=== PATIENT | female | born 1930 | race Caucasian/White ===

== ENCOUNTER 2017-02-22 11:45 | Day surgery (SDC) | payer OTHER, MEDICARE ==
[2017-02-21 16:28] VITALS: BMI 22.6
[2017-02-22 12:29] VITALS: TEMP 98.1
[2017-02-22] MEDS ORDERED: MIDAZOLAM HCL 2 MG/2 ML SINGLE DOSE VIAL ONE (12:47)
[2017-02-22] MEDS ORDERED: PROPOFOL 20 ML ONE (14:09)
[2017-02-22] MEDS ORDERED: ceFAZolin SODIUM 1 GM VIAL ONE (14:16)
[2017-02-22] MEDS ORDERED: SODIUM CHLORIDE 0.9% P/F 10 ML VIAL IJ ONE (14:16)
[2017-02-22] MEDS ORDERED: ceFAZolin SODIUM 1 GM VIAL IVPB ONE (14:20)
[2017-02-22] MEDS ORDERED: BUPIVACAINE HCL/PF 0.5% (5MG/ML) 10 ML VIAL IJ ONE (14:30)
[2017-02-22] MEDS ORDERED: LIDOCAINE 1%/EPI 1:100000 (50 ML MULTI DOSE VIAL) PNB ONE (14:30)
[2017-02-22] MEDS ORDERED: MICROFIBRILLAR COLLAGEN 1 GM EACH ONE (15:09)
[2017-02-22] MEDS ORDERED: MICROFIBRILLAR COLLAGEN 1 GM EACH TP ONE (15:10)
[2017-02-22] MEDS ORDERED: ONDANSETRON 4 MG/2 ML VIAL IVPUSH PRN (15:26)
[2017-02-22] MEDS ORDERED: oxyCODONE HCL 5 MG TABLET PO PRN (15:26)
[2017-02-22] MEDS ORDERED: ACETAMINOPHEN 325 MG TABLET (FP) PO PRN (15:27)
[2017-02-22] MEDS ORDERED: LACTATED RINGERS SOLUTION 1,000 ML IV SCH ×2 (15:30)
[2017-02-22 18:28] VITALS: BP 147/66; PULSE 54
--- NOTE | 2017-02-23 06:03 | OP ---
DATE OF OPERATION: 02/22/2017 SURGICAL ATTENDING: Gem Adames MD PREOPERATIVE DIAGNOSIS: Right parotid mass. POSTOPERATIVE DIAGNOSIS: Right parotid mass. ANESTHESIA: Local with sedation. PROCEDURE: Right parotid mass biopsy. DESCRIPTION OF PROCEDURE: The patient was taken into the operating room and placed in a supine position and given IV sedation. Neck ultrasound was performed showing a large mass in the right parotid gland. No other significantly prominent lymph nodes were identified for biopsy. A vertical incision was made in the infra-auricular region posterior to the right parotid mass. This was carried down through subcutaneous tissues and platysma. The parotid gland was identified, and incision was made in the parotid gland. What appeared to be a branch of the facial nerve was identified and preserved. The mass was identified deep to the parotid, and a wedge biopsy was taken. This was sent to Pathology for frozen section and shown to have a lympho infiltrative process. Additional tissue was taken for further pathological analysis. Hemostasis was achieved with electrolytes, pressure, and Avitene. The wound was then closed with 2 layers of Vicryl and nylon sutures. Sterile dressings were placed. The patient was then awakened and taken to recovery in stable condition. Dr. Adames, the attending surgeon, was present throughout the entire procedure. GEM ADAMES M.D. [id number]
--- NOTE | 2017-02-28 17:02 | PATH ---
Surgical Pathology Report Patient Name: LINH DOVE [place]. Rec. #: [id number] /Age/Gender: 1930 (Age: 86) / F Account: [id number] Location: [facility] SURGICAL Taken: 02/22/2017 Received: 02/22/2017 Reported: 02/28/2017 Physicians: Vamshi Madrid M.D. Specimen(s) Received A: PAROTID MASS-FROZEN B: RIGHT PAROTID MASS BIOPSY Clinical History Right parotid mass Intraoperative Consult Diagnosis Parotid mass: Dense lymphoid infiltrate present (1 FS, 1 TP). Dr. Michele on 02/22/17 at 3:05 PM. Final Diagnosis A,B. 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 Comment: The biopsies show salivary gland tissue with areas of dense lymphoid infiltrate with mild pleomorphism forming focal lymphoepithelial-type lesions. The lymphoid infiltrate is comprised of predominantly of small size lymphocytes with occasional large forms also seen. Focal areas reminiscent of sialadenitis are also seen. Immunohistochemical stains performed and interpreted [facility] show the following highlight epithelial cells in lymphoepithelial lesions; lymphocytes are positive for CD45 with CD20 highlights B-cells, CD3 highlights T-cells. Additional immunohistochemical stains performed and interpreted at [place], [place] ([id number]) show the following: PAX5 highlights B-cells with a subset of B-cells positive for BCL6; BCL2 appears negative in B-cells and positive in T-cells; CD21 highlights follicular dendritic cells; BCL1 is negative. Flow Cytometry performed and interpreted on the concurrent specimen at [place], [place] ([id number]) shows a paucicellular specimen with involvement by B-cell lymphoma with clonal CD20+ B-cells expressing [place] light chain, negative for CD5 and CD10, comprising 20% of lymphocytes. Based on the results of Flow Cytometry the differential diagnosis includes Marginal Zone Lymphoma (favored), Lymphoplasmacytic lymphoma or other type of CD5- CD10- lymphoma. The biopsy specimen was seen consultation with hematopathology service at [place], [place] ([id number], Dr. Chakraborty). The it architecture consultant's opinion was as follows "Focal atypical B-cell infiltrate in salivary gland". 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 The case was preliminary discussed with Dr. Madrid by Dr. Condon on 02/26/17. Electronically Signed Conrad Michele M.D. Gross Description A. Received fresh labeled "right parotid mass frozen" are 2 pink-salvador soft tissue fragments measuring 0.2 and 0.4 cm in greatest dimension. The specimen is entirely submitted for touch prep and frozen section. One of the portions is placed into RPMI solution and sent for flow cytometry. The remaining portion is entirely submitted in one cassette. B. Received fresh labeled "right parotid mass" are 2 pink-salvador soft tissue fragments measuring 0.3 and 0.5 cm in greatest dimension. One of the portions is placed and RPMI solution and sent for flow cytometry. The remaining portion is entirely submitted in one cassette. 02/22/[address] [facility]02/22/2017
== END 2017-02-22 18:28 | disposition home or self-care (01) ==
LOC: JASU-SURG 11:45
PROVIDERS: ATTEND Surgery
PROC: 0CBJ0ZX Excision of Minor Salivary Gland, Open Approach, Diagnostic (ICD-10-PCS; principal; 2017-02-22 13:00)
DX: D37.030 Neoplasm of uncertain behavior of the parotid salivary glands (principal)
CPT/HCPCS: 88305-TC; 88331-TC; 88333; 88341-TC; 88342-TC; 94760

== ENCOUNTER 2017-05-16 17:45 | Inpatient (IN) | payer OTHER, MEDICARE ==
--- NOTE | 2017-05-16 18:09 | PDOC ---
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 Today the patient was walking up the stone steps to her house when she misstepped and fell backwards. The patient hit the back of her head on the steps but did not lose consciousness. She is complaining of headache and lower back pain. The patient denies any blurry vision, LOC, dizziness, nausea, vomiting, or weakness. PCP: Abebe Noriega MD Oncologist: Michael Kline MD Senior Assistant Manager: Robert Loaiza MD Allergies: propoxyphene napsylate, aspirin Social History: No alcohol, tobacco, or drug use reported Past Surgical History: Appendectomy, mitral valve replacement <January Fagan - Last Filed: 05/16/17 20:27> <Karl Corrales - Last Filed: 05/16/17 20:45> - General Chief Complaint: Injury Stated Complaint: INJURY Past History <January Fagan - Last Filed: 05/16/17 20:27> - Past Medical History Anemia: Yes (HIGH PLATELETS,freq transfusions) Asthma: No Cancer: Yes (lymphomia) Cardiac Disorders: Yes (AFIB, mvp) CVA: No COPD: No CHF: No Dementia: No Diabetes: No GI Disorders: Yes (esophageal reflux, ulcer) Disorders: No HTN: Yes Hypercholesterolemia: No Liver Disease: No Seizures: No Thyroid Disease: No (Al's) - Surgical History Abdominal Surgery: Yes (BOTH OVARIES) Appendectomy: Yes Cardiac Surgery: Yes (Mitral Valve) Cholecystectomy: No Lung Surgery: No Neurologic Surgery: No Orthopedic Surgery: No - Immunization History Td Vaccination: Yes Immunization Up to Date: Yes - Psycho/Social/Smoking Cessation Hx Anxiety: No Suicidal Ideation: No Smoking Status: No Smoking History: Former smoker Years of Tobacco Use: 0 Have you smoked in the past 12 months: No Number of Cigarettes Smoked Daily: 2 If you are a former smoker, when did you quit?: 60 years ago Cigars Per Day: 0 Information on smoking cessation initiated: No 'Breaking Loose' booklet given: 03/28/12 Hx Alcohol Use: No Drug/Substance Use Hx: No Substance Use Type: None Hx Substance Use Treatment: No <Karl Corrales - Last Filed: 05/16/17 20:45> - Past Medical History Allergies/Adverse Reactions: Allergies Allergy/AdvReac Type Severity Reaction Status Date / Time propoxyphene napsylate Allergy Severe Swelling Verified 05/16/17 17:58 [From Darvocet-N 100] aspirin Allergy Difficulty Verified 05/16/17 17:58 Breathing Home Medications: Ambulatory Orders Amlodipine Besylate [Norvasc -] 10 mg PO DAILY #0 tablet 05/13/13 Clonazepam [Klonopin] 0.25 mg PO TID PRN 04/21/14 Hydroxyurea [Hydrea 500Mg Capsule -] 500 mg PO DAILY 04/21/14 Ranitidine [Zantac -] 150 mg PO DAILY 06/10/15 Sotalol HCl [Sotalol] 120 mg PO BID 06/10/15 Warfarin Na [Coumadin -] 4 mg PO DAILY 06/10/15 Cholecalciferol (Vitamin D3) [Vitamin D3] 2,000 unit PO DAILY 03/22/16 Epoetin Chris [Procrit] 0 unit IJ ASDIR 09/11/16 Cranberry 400 mg PO DAILY 02/21/17 Review of Systems - Review of Systems Comments:: 05/16/17 19:28 GENERAL/CONSTITUTIONAL: No fever or chills. No weakness. HEAD, EYES, EARS, NOSE AND THROAT: No change in vision. No ear pain or discharge. No sore throat. CARDIOVASCULAR: No chest pain or shortness of breath. RESPIRATORY: No cough, wheezing, or hemoptysis. GASTROINTESTINAL: No nausea, vomiting, diarrhea or constipation. GENITOURINARY: No dysuria, frequency, or change in urination. MUSCULOSKELETAL: Lower back pain. No joint or muscle swelling or pain. No neck pain. ENDOCRINE: No increased thirst. No abnormal weight change. SKIN: No rash NEUROLOGIC: Headache. No vertigo, loss of consciousness, or change in strength/ sensation. <January Fagan - Last Filed: 05/16/17 20:27> *Physical Exam - Vital Signs Last Vital Signs Temp Pulse Resp BP Pulse Ox 98.6 F 59 L 20 163/57 96 05/16/17 17:58 05/16/17 17:58 05/16/17 17:58 05/16/17 17:58 05/16/17 17:58 - Physical Exam Comments: 05/16/17 19:28 GENERAL: Awake, alert, and fully oriented, in no acute distress HEAD: Midline occipital hematoma EYES: PERRLA, EOMI, sclera anicteric, conjunctiva clear ENT: Auricles normal inspection, hearing grossly normal, nares patent, oropharynx clear without exudates. Moist mucosa NECK: Normal ROM, supple, no lymphadenopathy, JVD, or masses LUNGS: Breath sounds equal, clear to auscultation bilaterally. No wheezes, and no crackles HEART: Regular rate and rhythm, normal S1 and S2, no murmurs, rubs or gallops ABDOMEN: Soft, nontender, normoactive bowel sounds. No guarding, no rebound. No masses EXTREMITIES: Normal range of motion, no edema. No clubbing or cyanosis. No cords, erythema, or tenderness BACK: Upper lumbar tenderness bilaterally. No bony step off to the spinal process. Paraspinal muscle tenderness. No paraspinal bony tenderness. NEUROLOGICAL: Cranial nerves II through XII grossly intact. Normal speech, normal gait SKIN: Warm, Dry, normal turgor, no rashes or lesions noted. HEMATOLOGIC/LYMPHATIC: No anemia, easy bleeding, or history of blood clots. ALLERGIC/IMMUNOLOGIC: No hives or skin allergy. <January Fagan - Last Filed: 05/16/17 20:27> - Vital Signs Last Vital Signs Temp Pulse Resp BP Pulse Ox 98.6 F 59 L 20 163/57 96 05/16/17 17:58 05/16/17 17:58 05/16/17 17:58 05/16/17 17:58 05/16/17 17:58 <Karl Corrales - Last Filed: 05/16/17 20:45> Heart Score/ECG Review #1 05/16/17 19:30 Sinus bradycardia at 58 bpm Left axis deviation Possible Anterior infarct, age undetermined Abnormal ECG <January Fagan - Last Filed: 05/16/17 20:27> ED Treatment Course - LABORATORY CBC & Chemistry Diagram: 05/16/17 18:22 05/16/17 18:22 - RADIOLOGY Radiograph Interpretation: 05/16/17 20:[address] Impression: No acute intracranial pathology is noted. As also described on a cranial MRI study of 04/23/2017 there is partial imaging of a right parotid mass lesion - ? on the basis of known lymphoma. Reported By: Nestor Vee MD Lumbar CT Impression: A minimal to mild subtle acute T12 vertebral body compression fracture is seen with minimal bony retropulsion. Diffuse osteoporosis. There is no definite CT evidence of osseous neoplastic disease. Multilevel degenerative disc and facet joint changes as discussed. There appears to be a small amount of free fluid within the partially imaged hepatorenal fossa. If clinically indicated confirmation and further evaluation utilizing sonography or CT may be performed. Reported By: Nestor Vee MD - Medications Given in the ED: ED Medications Discontinued Medications Generic Name Dose Route Start Last Admin Trade Name Freq PRN Reason Stop Dose Admin Morphine Sulfate 4 mg 05/16/17 18:22 05/16/17 18:34 Morphine Injection - IVPUSH 05/16/17 18:23 4 mg ONCE ONE Administration Ondansetron HCl 4 mg 05/16/17 18:22 05/16/17 18:25 Zofran Injection IVPUSH 05/16/17 18:23 4 mg ONCE ONE Administration <January Fagan - Last Filed: 05/16/17 20:27> - LABORATORY CBC & Chemistry Diagram: 05/16/17 18:22 05/16/17 18:22 <Karl Corrales - Last Filed: 05/16/17 20:45> *DC/Admit/Observation/Transfer - Attestations Scribe Attestion: 05/16/17 19:30 Documentation prepared by January Fagan, acting as medical transcriber for Karl Corrales MD. <January Fagan - Last Filed: 05/16/17 20:27> - Discharge Dispostion Admit: Yes - Transfer to Acute Care Facility Transfer comment: 05/16/17 18:08 I, Dr. Karl Corrales, attest that this document has been prepared under my direction and personally reviewed by me in its entirety. I further attest, that it accurately reflects all work, treatment, procedures and medical decision -making performed by me. <Karl Corrales - Last Filed: 05/16/17 20:45> Diagnosis at time of Disposition: History of warfarin therapy Compression fracture of lumbar vertebra Qualifiers: Encounter type: initial encounter Fracture type: closed Qualified Code(s): S32.000A - Wedge compression fracture of unspecified lumbar vertebra, initial encounter for closed fracture Acute head injury without loss of consciousness Qualifiers: Encounter type: initial encounter Qualified Code(s): S09.90XA - Unspecified injury of head, initial encounter - Discharge Dispostion Condition at time of disposition: Improved - Referrals Referrals: Abebe Noriega MD [Primary Care Provider] -
[2017-05-16] MEDS ORDERED: morphine CARPU-JECT 4 MG/1 ML DISP.SYRIN IVPUSH ONE (18:22)
[2017-05-16] MEDS ORDERED: ONDANSETRON 4 MG/2 ML VIAL IVPUSH ONE ×2 (18:22→20:38)
[2017-05-16] MEDS ORDERED: morphine CARPU-JECT 4 MG/1 ML DISP.SYRIN ONE (18:26)
[2017-05-16] MEDS ORDERED: ONDANSETRON 4 MG/2 ML VIAL ONE ×2 (18:26→20:41)
[2017-05-16 19:26] LABS: BASOPHIL 1.7 % (0-2.0); EOSINOPHIL 4.4 % (0-4.5); MCH 24.3 pg (25.7-33.7); MCHC 31.2 g/dl (32.0-36.0); MEAN PLT VOLUME 9.1 fl (7.5-11.1); NEUTROPHILS 80.4 % (42.8-82.8); PLATELET COUNT 380 K/MM3 (134-434); RDW 19.1 % (11.6-15.6); WHITE BLOOD COUNT 10.1 K/mm3 (4.0-10.0)
[2017-05-16 19:47] LABS: INR 2.31 (0.82-1.09); PROTHROMBIN TIME (PATIENT) 25.8 SEC (9.98-11.88)
[2017-05-16 19:49] LABS: ACTIVATED PTT 49.8 SECONDS (26.9-34.4)
[2017-05-16] MEDS ORDERED: LORAZEPAM CARPU-JECT 2 MG/ML DISP.SYRIN IVPUSH ONE (20:38)
[2017-05-16] MEDS ORDERED: morphine CARPU-JECT 2 MG/1 ML DISP.SYRIN IVPUSH ONE (20:38)
[2017-05-16] MEDS ORDERED: morphine CARPU-JECT 2 MG/1 ML DISP.SYRIN ONE (20:40)
[2017-05-16] MEDS ORDERED: LORazepam 2 MG/ML SDV VIAL ONE (20:41)
[2017-05-16 20:49] LABS: ALBUMIN 4.1 g/dl (3.4-5.0); ANION GAP 10 (8-16); BILIRUBIN,TOTAL 1.2 mg/dL (0.2-1.0); CALCIUM 8.8 mg/dL (8.5-10.1); CO2 26 mmol/L (21-32); CREATININE 0.9 mg/dL (0.55-1.02); GLUCOSE,RANDOM 99 mg/dL (74-106); SGOT/AST 56 U/L (15-37); SGPT/ALT 43 U/L (12-78); TOT PROT 6.7 g/dl (6.4-8.2)
[2017-05-16 20:51] LABS: ALK PHOS 122 U/L (45-117); TROPONIN I 0.02 ng/ml (0.00-0.05)
--- NOTE | 2017-05-16 21:47 | PN ---
Teaching Attending Note Name of Resident: Cici Robertson ATTENDING PHYSICIAN STATEMENT I saw and evaluated the patient. I reviewed the resident's note and discussed the case with the resident. I agree with the resident's findings and plan as documented. SUBJECTIVE: 86 y/o female s/p mechanical fall. OBJECTIVE: ON exam A& times 3 in mild distress, with neck hyperextended and swollen, pre and post suricular swelling. Lungs CTA, CVS RRR, Abd soft BS+, Ext nl rom, 5+ strength ecchymosis on right elbow. Skin with poor turgor and petechia. Neuro no focal deficits, sensation intact. CBCD WBC 10.1 K/mm3 (4.0-10.0) H D 05/16/17 18:22 RBC 3.87 M/mm3 (3.60-5.2) 05/16/17 18:22 Hgb 9.4 GM/dL (10.7-15.3) L 05/16/17 18:22 Hct 30.2 % (32.4-45.2) L 05/16/17 18:22 MCV 78.0 fl (80-96) L 05/16/17 18:22 MCHC 31.2 g/dl (32.0-36.0) L 05/16/17 18:22 RDW 19.1 % (11.6-15.6) H 05/16/17 18:22 Plt Count 380 K/MM3 (134-434) D 05/16/17 18:22 MPV 9.1 fl (7.5-11.1) D 05/16/17 18:22 CMP Sodium 134 mmol/L (136-145) L 05/16/17 20:18 Potassium 4.2 mmol/L (3.5-5.1) 05/16/17 20:18 Chloride 98 mmol/L (98-107) 05/16/17 20:18 Carbon Dioxide 26 mmol/L (21-32) 05/16/17 20:18 Anion Gap 10 (8-16) 05/16/17 20:18 BUN 24 mg/dL (7-18) H 05/16/17 20:18 Creatinine 0.9 mg/dL (0.55-1.02) 05/16/17 20:18 Creat Clearance w eGFR 59.51 (>60) 05/16/17 20:18 Random Glucose 99 mg/dL (74-106) 05/16/17 20:18 Calcium 8.8 mg/dL (8.5-10.1) 05/16/17 20:18 Total Bilirubin 1.2 mg/dL (0.2-1.0) H 05/16/17 20:18 AST 56 U/L (15-37) H D 05/16/17 20:18 ALT 43 U/L (12-78) 05/16/17 20:18 Alkaline Phosphatase 122 U/L (45-117) H 05/16/17 20:18 Total Protein 6.7 g/dl (6.4-8.2) 05/16/17 20:18 Albumin 4.1 g/dl (3.4-5.0) 05/16/17 20:18 CARDIAC ENZYMES Creatine Kinase 40 IU/L (26-192) 05/16/17 20:18 Troponin I 0.02 ng/ml (0.00-0.05) 05/16/17 20:18 ASSESSMENT AND PLAN: s/p mechanical fall with T12 compression fracture and head trauma with patient on coumadin (INR 2.31) Hold coumadin and repeat Head CT, Neuro checks q2h and PT consult and Neurosurgery consult . Percocet PO Q6H PRN and Morphine 2mg IVPUSH Q4H PRN for severe pain
--- NOTE | 2017-05-16 22:15 | HP ---
HISTORY OF PRESENT ILLNESS: Patient is an 86 year old female with a PMHx of HTN, A.fib (on Coumadin), Tucker thyroiditis, GERD, anxiety, Myeloproliferative disorder, Lymphoma on radiotherapy (last treatment today (05/16/17) who was BIBEMS s/p mechanical fall with complaints of severe back pain. Patient reports she fell backwards five steps down landing on her back and hitting the back of her head. Patient otherwise denies headache, acute vision changes, dizziness, loss of consciousness, urinary or fecal incontinence, weakness, numbness. PHYSICAL EXAMINATION GENERAL: Awake, alert, and fully oriented and in mild painful distress HEAD: Tenderness upon palpation of the posterior aspect of the head EYES: (-) [place] eyes, Pupils equal, round and reactive to light, extraocular movements intact, sclera anicteric, conjunctiva clear. EARS, NOSE, THROAT: Bruising of the right aspect of the tongue with no laceration. Moist mucous membranes. (-) Wolfe signs, (-) hemotympanum NECK: Limited range of motion upon flexion of the neck. Lymphadeopathy in the pre and post auricular with tenderness upon palpation LUNGS: Breath sounds equal, clear to auscultation bilaterally. No wheezes, and no crackles. No accessory muscle use. HEART: Irregularly irregular rhythm, normal S1 and S2 without murmur, rub or gallop. ABDOMEN: Soft, nontender, not distended, normoactive bowel sounds, no guarding, no rebound, no masses, (-) bruising UPPER EXTREMITIES: Echymosis of the of the right elbow. No peripheral edema. LOWER EXTREMITIES: Bilateral chronic venous stasis with pedal edema with 2+ pulses, warm, well-perfused. No calf tenderness. NEUROLOGICAL: Normal Speech, motor strength 5/5, sensory intact, CN II-XII intact except for VIII. SKIN: Chronic venous stasis bilaterally. Telangiectasia's throughout upper and lower body. Abnormal Lab Results 05/16/17 05/16/17 05/16/17 18:22 18:22 20:18 WBC 10.1 H D Hgb 9.4 L Hct 30.2 L MCV 78.0 L MCH 24.3 L MCHC 31.2 L RDW 19.1 H Lymphocytes % 7.9 L D INR 2.31 H D PTT (Actin FS) 49.8 H D Sodium 134 L BUN 24 H Total Bilirubin 1.2 H AST 56 H D Alkaline Phosphatase 122 H IMAGES: HEAD CT (05/16/17): No Acute pathology. No hemorrhage or hematoma identified. ASSESSMENT/PLAN: Patient is an 86 year old female with a PMHx of HTN, A.fib (on Coumadin), Tucker thyroiditis, GERD, anxiety, Myeloproliferative disorder, Lymphoma on radiotherapy who was brought in s/p mechanical fall. Patient was found to have an acute T12 vertebral body compression fracture. Patient admitted for further monitoring and management. Head Trauma and T12 Compression Fracture s/p Mechanical Fall -Patient on Coumadin -First CT negative. Will repeat in 6 hours -Coumadin on hold -Neuro Checks Q2H and fall risk precautions -Morphine PRN percocet Q6H -Neurology consult placed -Physical therapy Case discussed with medical team and attending. Full H&P to follow Visit type - Emergency Visit Emergency Visit: Yes ED Registration Date: 05/16/17 Care time: The patient presented to the Emergency Department on the above date and was hospitalized for further evaluation of their emergent condition. - New Patient This patient is new to me today: Yes Date on this admission: 05/17/17 - Critical Care Critical Care patient: No
[2017-05-16] MEDS ORDERED: OXYCODONE/APAP 5/325MG COMBO TABLET PO PRN (22:22)
[2017-05-16] MEDS ORDERED: oxyCODONE HCL 5 MG TABLET PO PRN (22:35)
--- NOTE | 2017-05-16 23:12 | HP ---
CHIEF COMPLAINT: Head trauma PCP: Dr. Abebe Cosme Alemite Operator: Dr. Robert Loaiza Oncologist: Dr. Kline Urologist: Dr. Mervin Bella Rad Onc: Dr. Gonzales Bernabe HISTORY OF PRESENT ILLNESS: 86yo woman with PMH of Afib (on coumadin), HTN, Al's thyroiditis, GERD, anxiety, myeloproliferative disorder, and Lymphoma on RT (treatment #7 today), who was BIBEMS after mechanical fall hitting her head earlier today. The patient went to radiation therapy early today, and on return home while she was entering her house the front door rapidly swung open. She subsequently fell backwards down 5 steps onto concrete, landing on her back and posterior head. She was on the ground for 5-10minutes before she was able to phone for help. She denies LOC, headache, vision changes. No confusion, dizziness, paresthesia or focal weakness. Patient denies SOB, diaphoresis, chest pain or palpitations before, during, and after the fall. ER course was notable for: (1) Vital signs: T 98.6F, HR 59, BP 163/57, RR 20, SpO2 96% on 2L NC (2) Head CT was negative for hemorrhage (3) Spinal XRAY showed T12 compression fracture (4) Pain control with PAST MEDICAL HISTORY: #Lymphoma #Afib on coumadin #Al's thyroiditis #GERD #anxiety #HTN #Essential thrombocytosis #myeloproliferative disorder formerly transfusion dependent #Allergic rhinitis PAST SURGICAL HISTORY: Appendectomy Mitral valve replacement Social History: Smoking: none Alcohol: none Drugs: none Family History: non-contributory Allergies: propoxyphene napsylate [From Darvocet-N 100] Allergy (Severe, Verified 05/16/17 17:58) Swelling aspirin Allergy (Verified 05/16/17 17:58) Difficulty Breathing HOME MEDICATIONS: Home Medications Medication Instructions Recorded Amlodipine Besylate [Norvasc -] 10 mg PO DAILY #0 tablet 05/13/13 Clonazepam [Klonopin] 0.25 mg PO TID PRN 04/21/14 Hydroxyurea [Hydrea 500Mg Capsule 500 mg PO DAILY 04/21/14 -] Ranitidine [Zantac -] 150 mg PO DAILY 06/10/15 Sotalol HCl [Sotalol] 120 mg PO BID 06/10/15 Warfarin Na [Coumadin -] 4 mg PO DAILY 06/10/15 Cholecalciferol (Vitamin D3) 2,000 unit PO DAILY 03/22/16 [Vitamin D3] Epoetin Chris [Procrit] 0 unit IJ ASDIR 09/11/16 Cranberry 400 mg PO DAILY 02/21/17 REVIEW OF SYSTEMS CONSTITUTIONAL: Absent: fever, chills, diaphoresis, generalized weakness, malaise, loss of appetite, weight change HEENT: Absent: rhinorrhea, nasal congestion, throat pain, throat swelling, difficulty swallowing, mouth swelling, ear pain, eye pain, visual changes CARDIOVASCULAR: Absent: chest pain, syncope, palpitations, irregular heart rate , lightheadedness, peripheral edema RESPIRATORY: Absent: cough, shortness of breath, dyspnea with exertion, orthopnea, wheezing, stridor, hemoptysis GASTROINTESTINAL: Absent: abdominal pain, abdominal distension, nausea, vomiting , diarrhea, constipation, melena, hematochezia GENITOURINARY: Absent: dysuria, frequency, urgency, hesitancy, hematuria, flank pain, genital pain MUSCULOSKELETAL: +neck and back pain SKIN: Absent: rash, itching, pallor HEMATOLOGIC/IMMUNOLOGIC: +cervical LAD ENDOCRINE: Absent: unexplained weight gain, unexplained weight loss, heat intolerance, cold intolerance NEUROLOGIC: Absent: headache, focal weakness or paresthesias, dizziness, unsteady gait, seizure, mental status changes, bladder or bowel incontinence PSYCHIATRIC: Absent: anxiety, depression, suicidal or homicidal ideation, hallucinations. PHYSICAL EXAMINATION Vital Signs - 24 hr 05/16/17 22:45 Temperature 100 F H Pulse Rate [ 61 Apical] Respiratory 14 Rate Blood Pressure 133/50 [Left Arm] O2 Sat by Pulse 99 Oximetry (%) GENERAL: Awake, alert, and fully oriented, in no acute distress. HEAD: Normal with no signs of trauma EYES: Pupils equal, round and reactive to light, extraocular movements intact, sclera anicteric, conjunctiva clear. EARS, NOSE, THROAT: mucous membranes, hematoma on right side of tongue NECK: mildly erythematous and swollen neck, pre-and post-auricular LNs tender to palpation, limited neck flexion 2/2 back tenderness LUNGS: Breath sounds equal, clear to auscultation bilaterally. No wheezes, and no crackles. No accessory muscle use. HEART: Regular rate and rhythm, normal S1 and S2 without murmur, rub or gallop. ABDOMEN: Soft, nontender, not distended MUSCULOSKELETAL: lower thorax tenderness bilaterally UPPER EXTREMITIES: hematoma on R elbow, 2+ pulses, warm, well-perfused. LOWER EXTREMITIES: 2+ pulses, warm, well-perfused. 1+ pitted edema. NEUROLOGICAL: Cranial nerves II-XII intact. 5/5 UE and LE strength. Normal speech. Gait not assessed. PSYCHIATRIC: Cooperative. Appropriate mood and affect. SKIN: b/l stasis dermatitis, telangiectasia on UE and LE Labs: Laboratory Last Values WBC 10.1 K/mm3 (4.0-10.0) H D 05/16/17 18:22 RBC 3.87 M/mm3 (3.60-5.2) 05/16/17 18:22 Hgb 9.4 GM/dL (10.7-15.3) L 05/16/17 18:22 Hct 30.2 % (32.4-45.2) L 05/16/17 18:22 MCV 78.0 fl (80-96) L 05/16/17 18:22 MCH 24.3 pg (25.7-33.7) L 05/16/17 18:22 MCHC 31.2 g/dl (32.0-36.0) L 05/16/17 18:22 RDW 19.1 % (11.6-15.6) H 05/16/17 18:22 Plt Count 380 K/MM3 (134-434) D 05/16/17 18:22 MPV 9.1 fl (7.5-11.1) D 05/16/17 18:22 Neutrophils % 80.4 % (42.8-82.8) D 05/16/17 18:22 Lymphocytes % 7.9 % (8-40) L D 05/16/17 18:22 Monocytes % 5.6 % (3.8-10.2) 05/16/17 18:22 Eosinophils % 4.4 % (0-4.5) 05/16/17 18:22 Basophils % 1.7 % (0-2.0) D 05/16/17 18:22 INR 2.31 (0.82-1.09) H D 05/16/17 18:22 PTT (Actin FS) 49.8 SECONDS (26.9-34.4) H D 05/16/17 18:22 Sodium 134 mmol/L (136-145) L 05/16/17 20:18 Potassium 4.2 mmol/L (3.5-5.1) 05/16/17 20:18 Chloride 98 mmol/L (98-107) 05/16/17 20:18 Carbon Dioxide 26 mmol/L (21-32) 05/16/17 20:18 Anion Gap 10 (8-16) 05/16/17 20:18 BUN 24 mg/dL (7-18) H 05/16/17 20:18 Creatinine 0.9 mg/dL (0.55-1.02) 05/16/17 20:18 Creat Clearance w eGFR 59.51 (>60) 05/16/17 20:18 Random Glucose 99 mg/dL (74-106) 05/16/17 20:18 Calcium 8.8 mg/dL (8.5-10.1) 05/16/17 20:18 Total Bilirubin 1.2 mg/dL (0.2-1.0) H 05/16/17 20:18 AST 56 U/L (15-37) H D 05/16/17 20:18 ALT 43 U/L (12-78) 05/16/17 20:18 Alkaline Phosphatase 122 U/L (45-117) H 05/16/17 20:18 Creatine Kinase 40 IU/L (26-192) 05/16/17 20:18 Troponin I 0.02 ng/ml (0.00-0.05) 05/16/17 20:18 B-Natriuretic Peptide Cancelled 05/16/17 18:22 Total Protein 6.7 g/dl (6.4-8.2) 05/16/17 20:18 Albumin 4.1 g/dl (3.4-5.0) 05/16/17 20:18 Imaging: Heat CT: no acute intracranial pathology Lumbar Spine CT w/o contrast: A minimal to mild subtle acute T12 vertebral body compression fracture seen with minimal bony retropulsion, diffuse osteoporosis EKG (05/16/17 19:30): Sinus bradycardia at 58 bpm Left axis deviation Possible Anterior infarct, age undetermined Abnormal ECG ASSESSMENT/PLAN: 86yo woman with PMH of afib on coumadin, lymphoma on radiation therapy, myeloproliferative disorder, HTN, al's thyroiditis, GERD, and anxiety who was BIBEMS after mechanical fall on head and admitted for observation. #head trauma s/p mechanical fall -Patient on coumadin (INR 2.31) -Hold coumadin -Serial Head CTs to rule out hemorrhage -Neuro checks q2h -Physical therapy ordered #T12 compression fracture -Neurosurgery consult ordered (Dr. Liborio Lawton) -Oxycodone 10mg/Acetaminophen 650mg PO Q6H PRN for pain management -Morphine 1mg IVPUSH Q4H PRN for pain management #Afib -Hold coudamin #HTN -Continue home amlodipine -Continue home sotalol 120mg BID #Anxiety -Continue home clonazepam 0.25mg PO TID PRN #Myelodysplastic syndrome -Continue home hydroxyurea 500mg PO daily #Mouth sores/oral pain 2/2 radiation therapy -Magic mouth wash 15cc S&S daily -Gelclair oral gel packet (patient's own medication) #Allergic Rhinitis -Continue home Ranitidine 150mg PO daily #F/E/N -Hold IVF -Electrolytes wnl -Regular diet #DVT prophylaxis: moderate risk 2/2 cancer -b/l SCD's #Dispo -Admit for observation -DNR d/w team Cici Robertson MD Visit type - Emergency Visit Emergency Visit: Yes ED Registration Date: 05/16/17 Care time: The patient presented to the Emergency Department on the above date and was hospitalized for further evaluation of their emergent condition. - New Patient This patient is new to me today: Yes Date on this admission: 05/17/17 - Critical Care Critical Care patient: No
[2017-05-17] MEDS: morphine CARPU-JECT 2 MG/1 ML DISP.SYRIN IVPUSH PRN ×2 (00:32→08:56)
[2017-05-17] MEDS: MAG HYDROX/ALH/SMC/DPHA/LIDO 240 ML MOUTHWASH MM SCH ×4 (00:40→18:08)
[2017-05-17 00:49] VITALS: BMI 17.2
[2017-05-17] MEDS ORDERED: oxyCODONE HCL 5 MG TABLET PO PRN (07:41)
[2017-05-17 07:59] LABS: MCH 24.5 pg (25.7-33.7); MCHC 31.6 g/dl (32.0-36.0); MEAN CELL VOLUME 77.5 fl (80-96); MEAN PLT VOLUME 8.5 fl (7.5-11.1); PLATELET COUNT 224 K/MM3 (134-434); RDW 18.4 % (11.6-15.6); WHITE BLOOD COUNT 5.4 K/mm3 (4.0-10.0)
[2017-05-17 08:19] LABS: INR 2.79 (0.82-1.09); PROTHROMBIN TIME (PATIENT) 31.3 SEC (9.98-11.88)
[2017-05-17 08:32] LABS: ANION GAP 7 (8-16); CALCIUM 8.1 mg/dL (8.5-10.1); CO2 29 mmol/L (21-32); CREATININE 0.8 mg/dL (0.55-1.02); GLUCOSE,RANDOM 88 mg/dL (74-106)
--- NOTE | 2017-05-17 09:21 | EKG ---
Test Reason : Blood Pressure : / mmHG Vent. Rate : 059 BPM Atrial Rate : 059 BPM P-R Int : 202 ms QRS Dur : 090 ms QT Int : 458 ms P-R-T Axes : 079 -46 021 degrees QTc Int : 453 ms SINUS BRADYCARDIA LEFT ANTERIOR FASCICULAR BLOCK POSSIBLE ANTERIOR INFARCT , AGE UNDETERMINED ABNORMAL ECG WHEN COMPARED WITH ECG OF 11-SEP-2016 06:18, SINUS RHYTHM HAS REPLACED ATRIAL FIBRILLATION VENT. RATE HAS DECREASED BY 55 BPM NONSPECIFIC T WAVE ABNORMALITY NOW EVIDENT IN ANTERIOR LEADS Confirmed by МАРИЯ DAIGLE MD ([id number]) on 05/17/2017 9:21:09 AM Referred By: Confirmed By:МАРИЯ DAIGLE MD
[2017-05-17] MEDS ORDERED: PT OWN MED DRAWER 7, Y5N ONE (09:35)
[2017-05-17] MEDS: SOTALOL HCL 80 MG TABLET (FP) PO SCH ×2 (09:54→21:12)
[2017-05-17] MEDS: amLODIPine BESYLATE 10 MG TABLET (FP) PO SCH (09:54)
[2017-05-17] MEDS: RANITIDINE HCL 150 MG TABLET (FP) PO SCH ×2 (09:54→10:12)
[2017-05-17] MEDS: CHOLECALCIFEROL (VITAMIN D3) 1,000 UNIT TABLET (FP) PO SCH (09:55)
[2017-05-17 11:11] LABS: ANISOCYTOSIS 1+; HYPOCHROMIA 1+; SCHISTOCYTES 1+
[2017-05-17] MEDS: HYDROXYUREA 500 MG CAPSULE PO SCH (11:49)
[2017-05-17] MEDS: clonazePAM 0.5 MG TABLET PO PRN ×2 (12:04→21:11)
[2017-05-17] MEDS: ACETAMINOPHEN 325 MG TABLET (FP) PO PRN ×2 (12:05→21:19)
--- NOTE | 2017-05-17 15:35 | PN ---
Teaching Attending Note Name of Resident: Maryse Hung ATTENDING PHYSICIAN STATEMENT I saw and evaluated the patient. I reviewed the resident's note and discussed the case with the resident. I agree with the resident's findings and plan as documented. SUBJECTIVE: pain in lower back. has difficulty moving her neck but no pain, has no ABd pain , has no paininher joints. denies SOB or CP OBJECTIVE: NAD , AAOx3 , hard of hearing HEENT: NC , EOMI, round equal pupils, reactive to light ( slightly deformed L pupil) , EOMI, no facial droop. aphthus ulcers on R sided of mouth. moist MM but dry lips, bluish discoloration on R sided tongue . R sided parotid mass, no LAP in rest of neck. no TTP over C -spine . CV: irreg irreg , 2/6 SM at LLSB Lungs : CTAB Abd: soft, NT, ND , NL BS Ext : no edema over LE Neuro : EOMI, round equal pupils, reactive to light ( slightly deformed L pupil ) , EOMI, no facial droop. tongue and uvula at mid line . nl facial sensation . strength 5/5 in upper and lower extremities proximally and distally. sensation tlo light touch is NL . reflexes 1+ knee jerk and biceps b/l . 1+ ankle jerk b/l . ASSESSMENT AND PLAN: 86 y/o lady with h/o Lymphoma , on radiation , myelo-proliferative disease , HTN , A fib on coumadin and other medical problems who presented after a mechanical fall. 1- Mechanical fall,. no syncope . trauma w/u with Neg Head CT x 2 T12 fx - add lidocaine patch - cont pain control - due to possible fluid collection seen in abd on L spine CT CT abd /P was obtained. no retroperitoneal bleed or any fluid collections - C spine CT , no FX - neuro sx consult for T12 pending. No neuro deficits. probably will need a brace 2- h/O A fib: on coumadin at home - will resume coumadin tonight as bleeding was r/o - cont sotalol 3- HTN : cont norvasc 4- h/o Lymphoma , and myelo-proliferative diseae. on Radiation . f/u and cont to monitor as out pt dispo : did poorly with PT. will d/w major gifts manager
[2017-05-17] MEDS: LIDOCAINE 5% TOPICAL PATCH TP SCH (15:58)
--- NOTE | 2017-05-17 16:17 | PN ---
Addendum entered and electronically signed by Maryse Hung RES 05/17/17 19: 24: We spoke to Dr. Kline who is the patient's oncologist, who stated that the patient's radiation therapy can be put on hold while the patient is in the hospital Original Note: Physical Exam: SUBJECTIVE: Patient seen and examined this AM. Patient stated that she has no seizure history, and a few prior fall episodes. Patient states that she at times loses balance, which leads to her falls. SHe does not ambulate with a assistive device. OBJECTIVE: GENERAL: The patient is awake, alert, and fully oriented, in no acute distress. EYES: PERRL, extraocular movements intact ENT: Dry mucous membranes, R sided tongue bluish discoloration, R sided yellow circular tongue sores NECK: Neck was supple, not tender to palpation. Mildly limited ROM of neck, discomfort with movement LUNGS: Breath sounds equal, upper lung hernández were clear to auscultation bilaterally, basilar crackles noted HEART: Regular rate and rhythm, S1, S2 +2/6 systolic murmur heard best in the tricuspid region ABDOMEN: Soft, nontender, mildly distended, normoactive bowel sounds EXTREMITIES: 2+ pulses, warm, well-perfused, no edema. Telangiectasias present on extremities. Tenderness to palpation of the mid/lower back. NEUROLOGICAL: A full neurologic exam was completed. Patient was oriented to person, place, and month. Cranial nerves II through XII were intact. Sensation was intact in the face and body bilaterally. Muscle strength was 5/5 in all extremities. Reflexes were 2+ in all extremities. FTN test was intact. Vibratory sensation and proprioception was intact. Gait was not observed due to patient's back discomfort . Active Medications Generic Name Dose Route Start Last Admin Trade Name Freq PRN Reason Stop Dose Admin Acetaminophen 650 mg 05/16/17 22:35 05/17/17 12:05 Tylenol - PO 325 mg Q6H PRN Administration PAIN LEVEL 6-10 Amlodipine Besylate 10 mg 05/17/17 10:00 05/17/17 09:54 Norvasc - PO 10 mg DAILY MARGARITA Administration Cholecalciferol 2,000 unit 05/17/17 10:00 05/17/17 09:55 Vitamin D3 - PO 2,000 unit DAILY MARGARITA Administration Clonazepam 0.25 mg 05/16/17 22:25 05/17/17 12:04 Klonopin - PO 0.25 mg TID PRN Administration ANXIETY Hydroxyurea 500 mg 05/17/17 10:00 05/17/17 11:49 Hydrea - PO 500 mg DAILY MARGARITA Administration Lidocaine 1 patch 05/17/17 10:45 05/17/17 15:58 Lidoderm Patch - TP Not Given DAILY MARGARITA Lidocaine/Aluminum/Magnesium/Simeth 15 ml 05/17/17 00:00 05/17/17 11:50 Magic Mouthwash *Sjr Formula* - MM 15 ml Q6HPO MARGARITA Administration Miscellaneous 1 each 05/17/17 22:00 Lidoderm Patch Removal MC DAILY@2200 [facility] Morphine Sulfate 1 mg 05/16/17 22:22 05/17/17 08:56 Morphine Injection - IVPUSH 1 mg Q4H PRN Administration PAIN Non-Formulary Medication 1 each 05/17/17 10:00 Patient's Own Med NS DAILY [facility] Oxycodone HCl 5 mg 05/17/17 07:41 05/17/17 12:05 Roxicodone - PO 5 mg Q6H PRN Administration PAIN LEVEL 6-10 Ranitidine HCl 150 mg 05/17/17 10:00 05/17/17 10:12 Zantac - PO Not Given DAILY [facility] Sotalol HCl 120 mg 05/17/17 10:00 05/17/17 09:54 Betapace - PO 120 mg BID MARGARITA Administration ASSESSMENT/PLAN: Patient is an 86yo F with PMHx of Afib on Coumadin, Lymphoma on radiation therapy, Myeloproliferative DIsorder, HTN, Tucker's thyroiditis, and Anxiety. She was brought by EMS after a mechanical fall. She was admitted for r/ o bleed since she is on anticoagulation. # S/p mechanical fall R/o bleed - The patient's Coumadin was held until any signs of bleed were ruled out. - Head CT x2 was negative for any acute intracranial bleeds. - CT of the lumbar spine was ordered because patient was experiencing back pain , which showed a mild T12 compression fraction, pt was given Lidocaine patch for pain control. - SInce CT of lumbar spine noted a possible fluid collection, we wanted to rule out a hematoma by ordering a CT abdomen, which showed no hematoma. - PT was ordered, saw patient today, pt was only able to walk 5 feet. Pt is unable to be discharged at this time - Neuro checks Q2 hours # Mild T12 Compression Fracture - Neurosurgery consult was ordered - Dr. Osuna - Pain management with Oxycodone 10mg/Acetaminophen 650mg PO Q6H PRN; Morphine 1mg IVPUSH Q4H PRN; and Lidocaine patch # Hx of Atrial Fibrillation - Held Coudamin until bleed was ruled out, today pt wasrestarted on Coumadin 3mg once. Will check PT/INR to see if dosage need to be adjusted # HTN - Continue home amlodipine - Continue home sotalol 120mg BID # Anxiety - Continue home clonazepam 0.25mg PO TID PRN # Myelodysplastic syndrome - Continue home hydroxyurea 500mg PO daily # 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 - Magic mouth wash 15cc S&S daily - Gelclair oral gel packet (patient's own medication) #Allergic Rhinitis -Continue home Ranitidine 150mg PO daily #F/E/N - Fluids: Hold IVF - Electrolytes: Electrolytes wnl - Diet: Regular diet # Prophylaxis - DVT: SCDs - GI: Not indicated #Dispo - Will wait for PT clearance #Code Status -DNR Visit type - Emergency Visit Emergency Visit: No - New Patient This patient is new to me today: No - Critical Care Critical Care patient: No - Discharge Referral Referred to [facility] Med P.C.: No
[2017-05-17] MEDS ORDERED: WARFARIN NA 3 MG TABLET PO ONE (18:00)
--- NOTE | 2017-05-17 18:02 | PN ---
Progress Note (short form) - Note Progress Note: NEUROSURGERY CONSULT DICTATED Chart reviewed Pt examined CT reviewed Family at bedside H/o myelofibrosis, AFib on coumadin, HTN, al's thyroiditis, GERD, and lymphoma (XRT) is s/p mechanical fall today while walking up the stone steps to her house. She fell backwards and hit the back of her head on the steps. + H/A initially but not now, no LOC. Some lower back pain. The patient denies any blurry vision, LOC, dizziness, nausea, vomiting, weakness, numbness. PE: AF, VSS General- unremarkable CN- intact; Motor- B UE/LE 5/5 except limited by pain; Sensation- intact LT; DTR - hyporeflexia Back- tender mid and low back Head CT (2): mild periventricular dz, no acute bleed or fx C spine CT: moderate spondylosis and DDD at multiple levels; preserved lordosis LS spine CT: DDD/moderate spondylosis and facet hypertrophy; minimal T12 inf end plate depression; No canal compromise Mild T12 compression fx with no associated canal compromise TLSO brace considered but declined by pt Some further loss of T12 stature/settling expected before stabilizing Pain meds PT/rehab (acute vs subacute) No neurosurgical intervention indicated for this elderly lady with multiple medical co-mobidities and no neurological element impingement F/U LS spine x-rays in 2 weeks to assess T12 stature Pain management if persistent pain for pain management injections/consideration for vertebroplasty, but it is too early to consider invasive tx at this time
[2017-05-17] MEDS: [UNRECOGNIZED DRUG - OTHER] NR SCH (18:11)
[2017-05-17] MEDS ORDERED: ARTIFICIAL TEARS (POLYVINYL ALCOHOL 1.4%) OPTH DROPS OU ONE (19:58)
[2017-05-17] MEDS: LIDOCAINE PATCH REMOVAL MC SCH (21:13)
[2017-05-18] MEDS: MAG HYDROX/ALH/SMC/DPHA/LIDO 240 ML MOUTHWASH MM SCH ×5 (01:53→23:08)
[2017-05-18] MEDS: ACETAMINOPHEN 325 MG TABLET (FP) PO PRN ×3 (06:37→21:36)
[2017-05-18 07:34] LABS: MCH 24.8 pg (25.7-33.7); MEAN CELL VOLUME 77.7 fl (80-96); MEAN PLT VOLUME 8.5 fl (7.5-11.1); PLATELET COUNT 221 K/MM3 (134-434); RDW 18.6 % (11.6-15.6); WHITE BLOOD COUNT 5.3 K/mm3 (4.0-10.0)
[2017-05-18 08:04] LABS: INR 2.58 (0.82-1.09); PROTHROMBIN TIME (PATIENT) 28.9 SEC (9.98-11.88)
--- NOTE | 2017-05-18 09:41 | PN ---
Progress Note (short form) - Note Progress Note: NEUROSURGERY Some back pain- mid/lower Tylenol helps PE: AF, VSS General- unremarkable CN- intact; Motor- B UE/LE 5/5 except limited by pain; Sensation- intact LT; DTR - hyporeflexia Back- tender mid and low back LS spine CT: DDD/moderate spondylosis and facet hypertrophy; minimal T12 inf end plate depression; No canal compromise Mild T12 compression fx with no associated canal compromise TLSO brace considered but declined by pt Some further loss of T12 stature from settling expected before image stabilizing Pain meds PT/rehab No neurosurgical intervention indicated for this elderly lady with multiple medical co-mobidities and no neurological element impingement F/U LS spine x-rays (to include T12) in 2 weeks to assess T12 stature Pain management if persistent pain for pain management injections/consideration for vertebroplasty, but it is too early to consider invasive tx at this time
[2017-05-18] MEDS: CHOLECALCIFEROL (VITAMIN D3) 1,000 UNIT TABLET (FP) PO SCH (10:05)
[2017-05-18] MEDS: amLODIPine BESYLATE 10 MG TABLET (FP) PO SCH (10:05)
[2017-05-18] MEDS: SOTALOL HCL 80 MG TABLET (FP) PO SCH ×2 (10:05→21:32)
[2017-05-18] MEDS: RANITIDINE HCL 150 MG TABLET (FP) PO SCH (10:05)
[2017-05-18] MEDS: HYDROXYUREA 500 MG CAPSULE PO SCH (10:05)
[2017-05-18] MEDS: LIDOCAINE 5% TOPICAL PATCH TP SCH (10:07)
[2017-05-18] MEDS: [UNRECOGNIZED DRUG - OTHER] NR SCH (10:09)
--- NOTE | 2017-05-18 11:15 | PN ---
Physical Exam: SUBJECTIVE: Patient seen and examined this AM. No new complaints this AM. Still complains of same back pain, no CP, no SOB, no new headaches, noted no numbness of tingling of extremities, no changes in urniation. OBJECTIVE: Vital Signs Period Temp Pulse Resp BP Sys/Conde Pulse Ox Last 24 Hr 98 F-98.9 F 49-60 18-20 127-151/45-76 96-96 GENERAL: The patient is awake, alert, and fully oriented, in no acute distress. EYES: PERRL, extraocular movements intact ENT: Dry mucous membranes, R sided tongue bluish discoloration, R sided yellow circular tongue sores NECK: Neck was supple, not tender to palpation. Mildly limited ROM of neck, discomfort with movement LUNGS: Breath sounds equal, upper lung hernández were clear to auscultation bilaterally, basilar crackles noted HEART: Regular rate and rhythm, S1, S2 +2/6 systolic murmur heard best in the tricuspid region ABDOMEN: Soft, nontender, mildly distended, normoactive bowel sounds EXTREMITIES: 2+ pulses, warm, well-perfused, no edema. Telangiectasias present on extremities. Tenderness to palpation of the mid/lower back. NEUROLOGICAL: A full neurologic exam was completed. Patient was oriented to person, place, and month. Cranial nerves II through XII were intact. Sensation was intact in the face and body bilaterally. Muscle strength was 5/5 in all extremities. Reflexes were 2+ in all extremities. FTN test was intact. Vibratory sensation and proprioception was intact. Gait was not observed due to patient's back discomfort . Laboratory Results - last 24 hr 05/18/17 05/18/17 06:00 06:00 WBC 5.3 RBC 3.32 L Hgb 8.3 L Hct 25.8 L MCV 77.7 L MCH 24.8 L MCHC 32.0 RDW 18.6 H Plt Count 221 MPV 8.5 Differential Comment Slide scanned INR 2.58 H Active Medications Generic Name Dose Route Start Last Admin Trade Name Freq PRN Reason Stop Dose Admin Acetaminophen 650 mg 05/16/17 22:35 05/18/17 06:37 Tylenol - PO 650 mg Q6H PRN Administration PAIN LEVEL 6-10 Amlodipine Besylate 10 mg 05/17/17 10:00 05/18/17 10:05 Norvasc - PO 10 mg DAILY MARGARITA Administration Cholecalciferol 2,000 unit 05/17/17 10:00 05/18/17 10:05 Vitamin D3 - PO 2,000 unit DAILY MARGARITA Administration Clonazepam 0.25 mg 05/16/17 22:25 05/17/17 21:11 Klonopin - PO 0.25 mg TID PRN Administration ANXIETY Hydroxyurea 500 mg 05/17/17 10:00 05/18/17 10:05 Hydrea - PO 500 mg DAILY MARGARITA Administration Lidocaine 1 patch 05/17/17 10:45 05/18/17 10:07 Lidoderm Patch - TP 1 patch DAILY MARGARITA Administration Lidocaine/Aluminum/Magnesium/Simeth 15 ml 05/17/17 00:00 05/18/17 06:37 Magic Mouthwash *Sjr Formula* - MM 15 ml Q6HPO MARGARITA Administration Miscellaneous 1 each 05/17/17 22:00 05/17/17 21:13 Lidoderm Patch Removal MC Not Given DAILY@2200 MARGARITA Gelclair Oral Gel - 1 each 05/17/17 18:00 05/18/17 10:09 Patient Own Med NR 1 each DAILY MARGARITA Administration Oxycodone HCl 5 mg 05/17/17 07:41 05/17/17 12:05 Roxicodone - PO 5 mg Q6H PRN Administration PAIN LEVEL 6-10 Ranitidine HCl 150 mg 05/17/17 10:00 05/18/17 10:05 Zantac - PO 150 mg DAILY MARGARITA Administration Sotalol HCl 120 mg 05/17/17 10:00 05/18/17 10:05 Betapace - PO 120 mg BID MARGARITA Administration ASSESSMENT/PLAN: Patient is an 86yo F with PMHx of Afib on Coumadin, Lymphoma on radiation therapy, Myeloproliferative DIsorder, HTN, Tucker's thyroiditis, and Anxiety. She was brought by EMS after a mechanical fall. She was admitted for r/ o bleed since she is on anticoagulation. # S/p mechanical fall R/o bleed - The patient's Coumadin was held until any signs of bleed were ruled out. Home coumadin can be restarted - Head CT x2 was negative for any acute intracranial bleeds. - CT of the lumbar spine was ordered because patient was experiencing back pain , which showed a mild T12 compression fraction, pt was given Lidocaine patch for pain control. - SInce CT of lumbar spine noted a possible fluid collection, we wanted to rule out a hematoma by ordering a CT abdomen, which showed no hematoma. - PT was ordered, saw patient today, pt was only able to walk 5 feet. As per patient she states that the session could have been stopped prematurely in order for her to go for her CT scan. Will try to speak to physical therapy to get a better sense of the session. - Neuro checks Q2 hours # Mild T12 Compression Fracture - Neurosurgery consult was ordered - Dr. Osuna, states that patient refused the back brace, will speak to patient again about it. - Pain management with Oxycodone 10mg/Acetaminophen 650mg PO Q6H PRN (pt refused due to nausea); Morphine 1mg IVPUSH Q4H PRN (pt refused due to dizziness ); and Lidocaine patch. Will monitor pain control with the patch # Hx of Atrial Fibrillation - Held Coudamin until bleed was ruled out, today pt wasrestarted on Coumadin 3mg once. INR therapeutic, can resume home 4mg dosage # Constipation - Pt states she has not had a bowel movement since , will order Senna and Colace. # HTN - Continue home amlodipine - Continue home sotalol 120mg BID # Anxiety - Continue home clonazepam 0.25mg PO TID PRN # Myelodysplastic syndrome - Continue home hydroxyurea 500mg PO daily # 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 - Magic mouth wash 15cc S&S daily - Gelclair oral gel packet (patient's own medication) #Allergic Rhinitis -Continue home Ranitidine 150mg PO daily #F/E/N - Fluids: Hold IVF - Electrolytes: Electrolytes wnl - Diet: Regular diet # Prophylaxis - DVT: SCDs - GI: Not indicated #Dispo - Will wait for PT clearance - Will ask if patient has new pharmacy to confirm all meds #Code Status -DNR Visit type - Emergency Visit Emergency Visit: No - New Patient This patient is new to me today: No - Critical Care Critical Care patient: No - Discharge Referral Referred to [facility] No
--- NOTE | 2017-05-18 11:56 | PN ---
Progress Note (short form) - Note Progress Note: Progress Note: Seen in follow up. No new complaints. Ongoing back pain.. Meds reviewed. Current Medications Generic Name Dose Route Start Last Admin Trade Name Freq PRN Reason Stop Dose Admin Acetaminophen 650 mg 05/16/17 22:35 05/18/17 06:37 Tylenol - PO 650 mg Q6H PRN Administration PAIN LEVEL 6-10 Amlodipine Besylate 10 mg 05/17/17 10:00 05/18/17 10:05 Norvasc - PO 10 mg DAILY MARGARITA Administration Cholecalciferol 2,000 unit 05/17/17 10:00 05/18/17 10:05 Vitamin D3 - PO 2,000 unit DAILY MARGARITA Administration Clonazepam 0.25 mg 05/16/17 22:25 05/17/17 21:11 Klonopin - PO 0.25 mg TID PRN Administration ANXIETY Docusate Sodium 100 mg 05/18/17 11:30 Colace - PO DAILY MARGARITA Hydroxyurea 500 mg 05/17/17 10:00 05/18/17 10:05 Hydrea - PO 500 mg DAILY MARGARITA Administration Lidocaine 1 patch 05/17/17 10:45 05/18/17 10:07 Lidoderm Patch - TP 1 patch DAILY MARGARITA Administration Lidocaine/Aluminum/Magnesium/Simeth 15 ml 05/17/17 00:00 05/18/17 06:37 Magic Mouthwash *Sjr Formula* - MM 15 ml Q6HPO MARGARITA Administration Miscellaneous 1 each 05/17/17 22:00 05/17/17 21:13 Lidoderm Patch Removal MC Not Given DAILY@2200 [facility] Gelclair Oral Gel - 1 each 05/17/17 18:00 05/18/17 10:09 Patient Own Med NR 1 each DAILY MARGARITA Administration Oxycodone HCl 5 mg 05/17/17 07:41 05/17/17 12:05 Roxicodone - PO 5 mg Q6H PRN Administration PAIN LEVEL 6-10 Ranitidine HCl 150 mg 05/17/17 10:00 05/18/17 10:05 Zantac - PO 150 mg DAILY MARGARITA Administration Senna 1 tab 05/18/17 22:00 Senna - PO HS MARGARITA Sotalol HCl 120 mg 05/17/17 10:00 05/18/17 10:05 Betapace - PO 120 mg BID MARGARITA Administration Warfarin Sodium 4 mg 07/15/17 18:00 Coumadin - PO DAILY@1800 MARGARITA On exam: Last Vital Signs Temp Pulse Resp BP Pulse Ox 98 F 49 L 18 128/45 96 05/18/17 08:00 05/18/17 08:00 05/18/17 08:00 05/18/17 08:00 05/18/17 06:00 General: In no acute distress. Extremities: No pallor or icterus, no pedal edema. Chest:good air entry bilaterally, fine crackles at base. Abdomen: Soft, no organomegaly, no masses. Neuro: Alert, oriented, non-focal. CVS: Normal sinus rhythm, S1, S2, no gallop or murmur. H and N: R parotid mass. CBC, BMP 05/18/17 06:00 05/17/17 06:38 Assessment. Recently diagnosed MALT lymphoma parotid area - receiving RT. Presently admitted following mechanical fall, with compression fracture. Pain control. History of burnt out ET - previously transfusion dependant, now with Hb maintained on WILLOW (Procrit 1-2 weekly.) Will administer today. Iron overloaded - further transfusion best avoided. Can consider tapering/stopping HU while platelets <800, may be beneficial to Hb.
[2017-05-18] MEDS ORDERED: EPOETIN ALFA 40,000 UNIT/1 ML VIAL SQ ONE (11:58)
--- NOTE | 2017-05-18 12:27 | PN ---
Teaching Attending Note Name of Resident: Maryse Hung ATTENDING PHYSICIAN STATEMENT I saw and evaluated the patient. I reviewed the resident's note and discussed the case with the resident. I agree with the resident's findings and plan as documented. SUBJECTIVE: no fever or chills, has no LONGO , change in vision , numbness , weakness or tingling. cont to have lower feng pain. OBJECTIVE: NAD , AAOx3 , hard of hearing HEENT: NC , EOMI, round equal pupils, reactive to light ( slightly deformed L pupil) , EOMI, no facial droop. aphthus ulcers on R sided of mouth. moist MM but dry lips, bluish discoloration on R sided tongue . R sided parotid mass, no LAP in rest of neck. no TTP over C -spine . CV: irreg irreg , 2/6 SM at LLSB Lungs : CTAB Abd: soft, NT, ND , NL BS Ext : no edema over LE Neuro : EOMI, round equal pupils, reactive to light ( slightly deformed L pupil ) , EOMI, no facial droop. tongue and uvula at mid line . nl facial sensation . strength 5/5 in upper and lower extremities proximally and distally. sensation to light touch is NL . reflexes 1+ knee jerk and biceps b/l . ASSESSMENT AND PLAN: 86 y/o lady with h/o Lymphoma , on radiation , myelo-proliferative disease , HTN , A fib on coumadin and other medical problems who presented after a mechanical fall. 1- Mechanical fall,. no syncope . trauma w/u with Neg Head CT x 2 T12 fx, CT without retroperitoneal hematoma -cont lidocaine patch - dc morphine and cont oxycodone - back brace recommended, pt refused. no need for surgical intervention - need repeat spine xray in 2 weeks - add incentive spirometer 2- h/O A fib: on coumadin at home - give 4 mg of coumadin tonight - cont sotalol 3- HTN : cont norvasc 4- h/o MALT Lymphoma. on Radiation . Heme consult appreciated dc hydroxyuria 4- constipation , add senna and colace Dispo: needs placement
[2017-05-18] MEDS: DOCUSATE SODIUM 100 MG CAPSULE (FP) PO SCH (12:41)
[2017-05-18] MEDS: clonazePAM 0.5 MG TABLET PO PRN ×2 (14:24→21:36)
[2017-05-18] MEDS: WARFARIN NA 2 MG TABLET (UD) PO SCH (18:06)
[2017-05-18] MEDS ORDERED: PT OWN MED DRAWER 7, Y5N ONE (18:21)
[2017-05-18] MEDS: SENNOSIDES 8.6MG TABLET (FP) PO SCH (21:32)
[2017-05-18] MEDS: LIDOCAINE PATCH REMOVAL MC SCH (21:46)
[2017-05-19] MEDS: MAG HYDROX/ALH/SMC/DPHA/LIDO 240 ML MOUTHWASH MM SCH ×4 (05:57→23:20)
[2017-05-19 08:04] LABS: MCH 24.5 pg (25.7-33.7); MCHC 31.6 g/dl (32.0-36.0); MEAN CELL VOLUME 77.5 fl (80-96); MEAN PLT VOLUME 9.2 fl (7.5-11.1); PLATELET COUNT 287 K/MM3 (134-434); RDW 18.5 % (11.6-15.6); WHITE BLOOD COUNT 4.7 K/mm3 (4.0-10.0)
[2017-05-19 08:42] LABS: INR 2.22 (0.82-1.09); PROTHROMBIN TIME (PATIENT) 24.8 SEC (9.98-11.88)
[2017-05-19] MEDS: SOTALOL HCL 80 MG TABLET (FP) PO SCH ×2 (09:03→21:52)
[2017-05-19] MEDS: DOCUSATE SODIUM 100 MG CAPSULE (FP) PO SCH (09:03)
[2017-05-19] MEDS: amLODIPine BESYLATE 10 MG TABLET (FP) PO SCH (09:03)
[2017-05-19] MEDS: CHOLECALCIFEROL (VITAMIN D3) 1,000 UNIT TABLET (FP) PO SCH (09:03)
[2017-05-19] MEDS: [UNRECOGNIZED DRUG - OTHER] NR SCH (09:04)
[2017-05-19] MEDS: LIDOCAINE 5% TOPICAL PATCH TP SCH (09:04)
--- NOTE | 2017-05-19 09:59 | PN ---
Progress Note (short form) - Note Progress Note: NEUROSURGERY Some back discomfort Constipated likely secondary to narcotic painkillers earlier PE: AF, VSS General- unremarkable CN- intact; Motor- B UE/LE 5/5 except limited by pain; Sensation- intact LT; DTR - hyporeflexia Back- tender mid and low back Transitioning to non-narcotic painkillers if pain controllable with such PT/rehab OOB with assistance to reduce adverse events associated with immobility No neurosurgical intervention indicated F/U LS spine x-rays (to include T12) in 2 weeks to assess T12 stature and alignment Pain management if persistent pain All questions answered
--- NOTE | 2017-05-19 12:04 | PN ---
Progress Note (short form) - Note Progress Note: Progress Note: Seen in follow up. No new complaints. Ongoing back pain, particularly when she moves. Mouth pain - from radiation. Concerned about no bowel action last 4 days. Meds reviewed. Current Medications Generic Name Dose Route Start Last Admin Trade Name Freq PRN Reason Stop Dose Admin Acetaminophen 650 mg 05/16/17 22:35 05/18/17 21:36 Tylenol - PO 650 mg Q6H PRN Administration PAIN LEVEL 6-10 Amlodipine Besylate 10 mg 05/17/17 10:00 05/19/17 09:03 Norvasc - PO 10 mg DAILY MARGARITA Administration Cholecalciferol 2,000 unit 05/17/17 10:00 05/19/17 09:03 Vitamin D3 - PO 2,000 unit DAILY MARGARITA Administration Clonazepam 0.25 mg 05/16/17 22:25 05/18/17 21:36 Klonopin - PO 0.25 mg TID PRN Administration ANXIETY Docusate Sodium 100 mg 05/18/17 11:30 05/19/17 09:03 Colace - PO 100 mg DAILY MARGARITA Administration Lidocaine 1 patch 05/17/17 10:45 05/19/17 09:04 Lidoderm Patch - TP 1 patch DAILY MARGARITA Administration Lidocaine/Aluminum/Magnesium/Simeth 15 ml 05/17/17 00:00 05/19/17 05:57 Magic Mouthwash *Sjr Formula* - MM 15 ml Q6HPO MARGARITA Administration Miscellaneous 1 each 05/17/17 22:00 05/18/17 21:46 Lidoderm Patch Removal MC 1 each DAILY@2200 MARGARITA Administration Gelclair Oral Gel - 1 each 05/17/17 18:00 05/19/17 09:04 Patient Own Med NR 1 each DAILY MARGARITA Administration Oxycodone HCl 5 mg 05/17/17 07:41 05/17/17 12:05 Roxicodone - PO 5 mg Q6H PRN Administration PAIN LEVEL 6-10 Ranitidine HCl 150 mg 05/17/17 10:00 05/18/17 10:05 Zantac - PO 150 mg DAILY MARGARITA Administration Senna 1 tab 05/18/17 22:00 05/18/17 21:32 Senna - PO 1 tab HS MARGARITA Administration Sotalol HCl 120 mg 05/17/17 10:00 05/19/17 09:03 Betapace - PO 120 mg BID MARGARITA Administration Warfarin Sodium 4 mg 05/18/17 18:00 05/18/17 18:06 Coumadin - PO 4 mg DAILY@1800 MARGARITA Administration On exam: Last Vital Signs Temp Pulse Resp BP Pulse Ox 98 F 60 18 145/59 97 05/19/17 08:00 05/19/17 08:00 05/19/17 08:00 05/19/17 08:00 05/18/17 20:38 General: In no acute distress. Extremities: No pallor or icterus, no pedal edema. Chest:good air entry bilaterally, fine crackles at base. Abdomen: Soft, no organomegaly, no masses. Neuro: Alert, oriented, non-focal. CVS: Normal sinus rhythm, S1, S2, no gallop or murmur. H and N: R parotid mass. CBC, BMP 05/19/17 06:00 05/17/17 06:38 Assessment. Recently diagnosed MALT lymphoma parotid area - receiving RT. Presently admitted following mechanical fall, with compression fracture. Pain control - Tylenol and oxycodone prescribed - encouraged to ask for it when needed. Constipation - laxatives prescribed. History of burnt out ET - previously transfusion dependant, now with Hb maintained on WILLOW (Procrit 1-2 weekly.) Administered yesterday. Iron overloaded - further transfusion best avoided. Can consider tapering/stopping HU while platelets <800, may be beneficial to Hb.
[2017-05-19] MEDS ORDERED: PT OWN MED DRAWER 7, Y5N ONE (12:25)
--- NOTE | 2017-05-19 13:38 | PN ---
Progress Note (short form) - Note Progress Note: Subjective: cont with back pain , but has improved with lidocaine patch . has co ntipation and needs ot have BM today Objective: Vital Signs: Last Vital Signs Temp Pulse Resp BP Pulse Ox 98 F 60 18 145/59 97 05/19/17 08:00 05/19/17 08:00 05/19/17 08:00 05/19/17 08:00 05/18/17 20:38 Laboratory Results - last 24 hr 05/19/17 05/19/17 06:00 06:00 WBC 4.7 RBC 3.47 L Hgb 8.5 L Hct 26.9 L MCV 77.5 L MCH 24.5 L MCHC 31.6 L RDW 18.5 H Plt Count 287 D MPV 9.2 Differential Comment Slide scanned INR 2.22 H Physical Exam: NAD , AAOx3 HEENT: NC. aphthus ulcers on R sided of mouth. moist MM but dry lips, bluish discoloration on R sided tongue . R sided parotid mass, no LAP in rest of neck. CV: irreg irreg , 2/6 SM at LLSB Lungs : CTAB Abd: soft, NT, ND , NL BS Ext : no edema over LE Neuro : EOMI, round equal pupils, reactive to light ( slightly deformed L pupil ) , EOMI, no facial droop. tongue and uvula at mid line . nl facial sensation . strength 5/5 in upper and lower extremities proximally and distally. sensation to light touch is NL . reflexes 1+ knee jerk and biceps b/l . ASSESSMENT AND PLAN: 86 y/o lady with h/o Lymphoma , on radiation , myelo-proliferative disease , HTN , A fib on coumadin and other medical problems who presented after a mechanical fall. 1- Mechanical fall,. no syncope . trauma w/u with Neg Head CT x 2 T12 fx, CT without retroperitoneal hematoma - cont lidocaine patch - cont oxycodone - no need for surgical intervention - need repeat spine xray in 2 weeks - incentive spirometer 2- h/O A fib: on coumadin at home - cont 4 mg of coumadin - cont sotalol 3- HTN : cont norvasc 4- h/o MALT Lymphoma. on Radiation . Heme consult appreciated off hydroxyuria for now Due for radiation treatment on Saturday . will consult Dr. Bernabe 4- Constipation , cont senna and colace . add miralax and give suppository Dispo: Medically stable. repeat PT eval on . Needs placement Visit type - Emergency Visit Emergency Visit: Yes ED Registration Date: 05/17/17 Care time: The patient presented to the Emergency Department on the above date and was hospitalized for further evaluation of their emergent condition. - New Patient This patient is new to me today: No - Critical Care Critical Care patient: No
[2017-05-19] MEDS ORDERED: BISACODYL 10 MG SUPP.RECT RC ONE ×2 (13:39→14:30)
[2017-05-19] MEDS: ACETAMINOPHEN 325 MG TABLET (FP) PO PRN (13:42)
[2017-05-19] MEDS: RANITIDINE HCL 150 MG TABLET (FP) PO SCH (16:50)
[2017-05-19] MEDS: WARFARIN NA 2 MG TABLET (UD) PO SCH (18:26)
[2017-05-19] MEDS: POLYETHYLENE GLYCOL 3350 119 GM BTL PO PRN (18:26)
[2017-05-19] MEDS: SENNOSIDES 8.6MG TABLET (FP) PO SCH (21:52)
[2017-05-19] MEDS: clonazePAM 0.5 MG TABLET PO PRN (21:52)
[2017-05-19] MEDS: LIDOCAINE PATCH REMOVAL MC SCH (22:39)
[2017-05-20] MEDS: ACETAMINOPHEN 325 MG TABLET (FP) PO PRN (05:24)
[2017-05-20] MEDS: MAG HYDROX/ALH/SMC/DPHA/LIDO 240 ML MOUTHWASH MM SCH ×3 (05:25→17:42)
[2017-05-20 07:20] LABS: INR 2.07 (0.82-1.09); PROTHROMBIN TIME (PATIENT) 23.1 SEC (9.98-11.88)
[2017-05-20 07:37] LABS: ANION GAP 8 (8-16); CALCIUM 8.2 mg/dL (8.5-10.1); CO2 27 mmol/L (21-32); GLUCOSE,RANDOM 91 mg/dL (74-106)
[2017-05-20 07:38] LABS: CREATININE 0.7 mg/dL (0.55-1.02)
--- NOTE | 2017-05-20 08:24 | PN ---
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 Good response of parotid mass so far but there is residual tumor on exam. She was admitted after a fall which caused a vertebral fracture. No surgical intervention recommended. She's unable to lay flat due to pain. She is constipated due to analgesics. Needs PT, pain control, bowel regimen. She needs to be able to lay flat to continue radiation therapy. I spoke to her and she would like to have time to recover. Will reevaluate in 1 week and may continue as outpatient.
--- NOTE | 2017-05-20 08:54 | PN ---
Progress Note (short form) - Note Progress Note: NEUROSURGERY Some back discomfort PE: Tman 98.9, AF, VSS General- unremarkable except R parotid area fullness as previously CN- intact; Motor- B UE/LE 5/5 except limited by pain; Sensation- intact LT; DTR - hyporeflexia Back- tender mid and low back Transitioning to non-narcotic painkillers if pain controllable with such PT/rehab OOB with assistance to reduce adverse events associated with immobility DVT prophylaxis No neurosurgical intervention indicated F/U LS spine x-rays (to include T12) in 2 weeks Pain management if persistent pain Rad-onc f/u noted
[2017-05-20] MEDS: LIDOCAINE 5% TOPICAL PATCH TP SCH (09:05)
[2017-05-20] MEDS: SOTALOL HCL 80 MG TABLET (FP) PO SCH ×2 (09:05→21:41)
[2017-05-20] MEDS: CHOLECALCIFEROL (VITAMIN D3) 1,000 UNIT TABLET (FP) PO SCH (09:05)
[2017-05-20] MEDS: [UNRECOGNIZED DRUG - OTHER] NR SCH (09:05)
[2017-05-20] MEDS: RANITIDINE HCL 150 MG TABLET (FP) PO SCH (09:05)
[2017-05-20] MEDS: amLODIPine BESYLATE 10 MG TABLET (FP) PO SCH (09:05)
[2017-05-20] MEDS: DOCUSATE SODIUM 100 MG CAPSULE (FP) PO SCH ×2 (09:05→21:41)
[2017-05-20] MEDS ORDERED: LACTULOSE 20 GM/30 ML UDC (FOR ORAL USE ONLY) PO ONE (09:15)
[2017-05-20] MEDS ORDERED: traMADol HCL 50 MG TABLET PO ONE (11:15)
[2017-05-20] MEDS ORDERED: PT OWN MED DRAWER 7, Y5N ONE ×2 (11:42→23:32)
[2017-05-20] MEDS: POLYETHYLENE GLYCOL 3350 119 GM BTL PO PRN (11:53)
--- NOTE | 2017-05-20 13:30 | CONS ---
DATE OF CONSULTATION: 05/17/2017 PREOPERATIVE DIAGNOSIS: Status post fall with mild T12 inferior endplate fracture. HISTORY OF PRESENT ILLNESS: The patient is an 86-year-old female with history of hypertension, atrial fibrillation on chronic anticoagulation, myeloproliferative disease with resultant myelofibrosis, Tucker thyroiditis, gastroesophageal reflux disease, and head and neck lymphoma undergoing radiation treatment, who was walking up the steps at home and fell down backwards. She landed down 5 steps. Had some headache initially but not presently. She had no loss of consciousness. She did complain of mid and lower back pain. She has no leg weakness, numbness, or tingling. She has no bowel or bladder dysfunction. There is no nausea or vomiting. She has been taking Percocet for pain, which makes her drowsy and dizzy. PAST MEDICAL HISTORY: Significant for atrial fibrillation on chronic anticoagulation, hypertension, Tucker thyroiditis, myeloproliferative disease/myelofibrosis, lymphoma undergoing external beam radiation, gastroesophageal reflux disease. CURRENT MEDICATIONS: Include Lidoderm patch, acetaminophen, hydroxyurea, Klonopin, sotalol, Norvasc, ranitidine, morphine sulfate, oxycodone, and vitamin D3. ALLERGIES: PROPOXYPHENE and ASPIRIN. SOCIAL HISTORY: She lives at home with her family. She does not smoke and only drinks alcohol socially. She is retired. REVIEW OF SYSTEMS: Otherwise negative for other major cardiovascular, pulmonary , gastrointestinal, genitourinary, endocrinological, neurological, and psychological problems except for the above. FAMILY HISTORY: Noncontributory. PHYSICAL EXAMINATION: General: She is awake and alert. Vital Signs: Temperature is 99.4, and blood pressure is 126/53. Pulse rate is 54. HEENT: Examination shows her to be normocephalic, atraumatic, anicteric. Neck: Supple except for some lymphadenopathy. Coronary: Examination demonstrated an irregular rhythm. Lungs: Clear and only showed decreased breath sounds at the bases. Abdomen: Benign. Extremities: Examination showed no obvious signs of DVT. Neurologic: She is awake and alert, oriented x3. She is sitting up in bed. She is surrounded by her family. Cranial nerve examination is intact 2-12. Motor examination shows 5/5 strength in the bilateral upper and lower extremities except limited by back pain. Sensory examination is intact to light touch. Deep tendon reflexes are hyporeflexic throughout. There is no pathologic long tract sign. Gait is not tested for safety reasons. Cerebellar examination shows no tremor and intact [id number] examination. Back: Examination of her lower back shows kyphosis deformity over the thoracolumbar junction. There is some tenderness to palpation in the upper lumbar spine near the thoracolumbar junction. This is bilateral. LABORATORY: Examination shows white blood cell count 5400, hemoglobin is 8, hematocrit is 25.4, platelet count is 124,000. INR is 2.79. Serum sodium is 136, potassium is 4.1, BUN is [address] scans of the head performed on May 16 and May 17 were reviewed, and they both demonstrated mild cerebral atrophy with [id number] periventricular small vessel disease. There was no acute bleed. There was a small hypodensity on the skull in the right parietal region which is unchanged from a prior scan. CT scan of the cervical spine demonstrated preserved cervical lordosis. There was multi-level degenerative disk disease and [id number] spondylosis. There was mild osteopenia. A CT scan of the lumbar spine demonstrated multi-level degenerative disk disease and facet hypertrophy. There was mild inferior T12 endplate depression consistent with a fracture. This was not seen on an abdominal CT scan performed 3 years ago. IMPRESSION: 1. Acute T12 inferior endplate compression fracture. 2. Osteopenia. 3. Lymphoma, undergoing radiation treatment. 4. Myeloproliferative disease/myelofibrosis. 5. Atrial fibrillation on chronic anticoagulation. 6. Tucker thyroiditis. RECOMMENDATIONS: The patient presented with a mechanical fall yesterday. She has some mid and lower back pain which is likely related to her T12 compression fracture. She does have underlying osteopenia. I discussed with her the treatment with a TLSO brace, but she declined. It will likely be too confining for her anyway. The fracture is expected to worsen slightly before stabilizing. Followup lumbar spine x-ray to include T12 level should be done in approximately 2 weeks and/or if she develops worsening pain. No neurosurgical intervention is recommended in this lady with multiple medical problems. If her pain persists, pain management could be considered as can vertebroplasty/kyphoplasty. This is certainly too early to consider such invasive treatment options. The above was discussed with the patient and family at bedside. They concur with the medical management only at this time. Perhaps her pain medication could be switched to Ultram from Percocet as Percocet is highly sedating for her. All questions were answered at bedside. NATHAN URENA M.D. RAVIN/[id number] MTDD
--- NOTE | 2017-05-20 14:07 | PN ---
Progress Note (short form) - Note Progress Note: Patients seen and examined. Patient's friend at his bedside. Patient is in tears as she could not take the feeling of being constipated and she does feel bloated. No nausea or vomiting. when asked which bothers her more, back pain or constipation, she claims as both. Otherwise has no complains[facility] General: In distress. Extremities: No pallor or icterus, no pedal edema. Chest:CTA b/l Abdomen: Soft, no organomegaly, no masses, bowel sounds heard Neuro: Alert, oriented, non-focal. CVS: Normal sinus rhythm, S1, S2, no gallop or murmur. H and N: R parotid mass palpable CBC, BMP 05/19/17 06:00 05/20/17 06:25 Current Medications Generic Name Dose Route Start Last Admin Trade Name Freq PRN Reason Stop Dose Admin Acetaminophen 650 mg 05/16/17 22:35 05/20/17 05:24 Tylenol - PO 650 mg Q6H PRN Administration PAIN LEVEL 6-10 Amlodipine Besylate 10 mg 05/17/17 10:00 05/20/17 09:05 Norvasc - PO 10 mg DAILY MARGARITA Administration Cholecalciferol 2,000 unit 05/17/17 10:00 05/20/17 09:05 Vitamin D3 - PO 2,000 unit DAILY MARGARITA Administration Lidocaine 1 patch 05/17/17 10:45 05/20/17 09:05 Lidoderm Patch - TP 1 patch DAILY MARGARITA Administration Lidocaine/Aluminum/Magnesium/Simeth 15 ml 05/17/17 00:00 05/20/17 11:53 Magic Mouthwash *Sjr Formula* - MM 15 ml Q6HPO MARGARITA Administration Miscellaneous 1 each 05/17/17 22:00 05/19/17 22:39 Lidoderm Patch Removal MC 1 each DAILY@2200 MARGARITA Administration Gelclair Oral Gel - 1 each 05/17/17 18:00 05/20/17 09:05 Patient Own Med NR 1 each DAILY MARGARITA Administration Polyethylene Glycol 17 gm 05/21/17 10:00 Miralax (For Daily Use) - PO DAILY MARGARITA Ranitidine HCl 150 mg 05/17/17 10:00 05/20/17 09:05 Zantac - PO 150 mg DAILY MARGARITA Administration Sotalol HCl 120 mg 05/17/17 10:00 05/20/17 09:05 Betapace - PO 120 mg BID MARGARITA Administration Warfarin Sodium 4 mg 05/18/17 18:00 05/19/17 18:26 Coumadin - PO 4 mg DAILY@1800 MARGARITA Administration Last Vital Signs Temp Pulse Resp BP Pulse Ox 98.3 F 57 L 20 137/55 95 05/20/17 10:00 05/20/17 10:00 05/20/17 10:00 05/20/17 10:00 05/20/17 06:00 Assessment/Plan: 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 Plan: Pain control: consider percocet prn Compression fracture- conservative management, appreciate neurosurgery note Constipation - laxatives prescribed today ( standing orders). Try tap water enema. less likely obstruction, passing gas/has bowel sounds. History of burnt out ET - previously transfusion dependant, now with Hb maintained on WILLOW (Procrit 1-2 weekly.) Administered on 05/18/2017. On hydrea. Iron overloaded - on no Tx for now Recently diagnosed MALT lymphoma parotid area - receiving RT. Appreciate [facility] red Will follow
--- NOTE | 2017-05-20 15:57 | HOSP ---
Subjective - Review of Symptoms Subjective: A call was placed because patient was having incontractable abdominal pain after administration of lactulose. Pt had been constipated for 4 days and was given an aggressive bowel regimen. When lactulose was added, the patient stated that she started having pain that increased with movement. The nurse gave the patient an enema with no excavation of stool Physical Examination Vital Signs: Vital Signs Temperature 98 F 05/20/17 14:26 Pulse Rate 59 L 05/20/17 14:26 Respiratory Rate 20 05/20/17 14:26 Blood Pressure 137/58 05/20/17 14:26 O2 Sat by Pulse Oximetry (%) 95 05/20/17 06:00 Findings/Remarks: General - The patient looked like she was in incontractable pain, moaning and grimacing while holding her abdomen. CV - RRR, S1, S2 Lungs - CTABL Abd - tender to soft palpation in all quadrants, hyperactive bowel sounds Labs: CBC, BMP 05/19/17 06:00 05/20/17 06:25 Hospitalist Encounter Assessment: Ordered an abdominal KUB flat plate to rule out obstruction Visit type - Emergency Visit Emergency Visit: No - New Patient This patient is new to me today: No - Critical Care Critical Care patient: No
--- NOTE | 2017-05-20 18:06 | PN ---
Physical Exam: SUBJECTIVE: Patient seen and examined thia AM. Complains that she is still constipated. Hospitalist encounter note written about patient, will f/u KUB report. No CP, SOB, fevers, or chills. OBJECTIVE: Vital Signs Period Temp Pulse Resp BP Sys/Conde Pulse Ox Last 24 Hr 98 F-98.9 F 57-68 18-20 134-140/55-70 95-95 GENERAL: The patient is awake, alert, and fully oriented, in no acute distress. EYES: PERRL, extraocular movements intact ENT: Dry mucous membranes, R sided tongue bluish discoloration, R sided yellow circular tongue sores NECK: Neck was supple, not tender to palpation. Mildly limited ROM of neck, discomfort with movement LUNGS: Breath sounds equal, upper lung hernández were clear to auscultation bilaterally, basilar crackles noted HEART: Regular rate and rhythm, S1, S2 +2/6 systolic murmur heard best in the tricuspid region ABDOMEN: Soft, nontender, mildly distended, normoactive bowel sounds EXTREMITIES: 2+ pulses, warm, well-perfused, no edema. Telangiectasias present on extremities. Tenderness to palpation of the mid/lower back. NEUROLOGICAL: A full neurologic exam was completed. Patient was oriented to person, place, and month. Cranial nerves II through XII were intact. Sensation was intact in the face and body bilaterally. Muscle strength was 5/5 in all extremities. Reflexes were 2+ in all extremities. FTN test was intact. Vibratory sensation and proprioception was intact. Gait was not observed due to patient's back discomfort . Laboratory Results - last 24 hr 05/20/17 05/20/17 06:25 06:25 INR 2.07 H Sodium 132 L Potassium 4.5 Chloride 97 L Carbon Dioxide 27 Anion Gap 8 BUN 17 Creatinine 0.7 Random Glucose 91 Calcium 8.2 L Active Medications Generic Name Dose Route Start Last Admin Trade Name Freq PRN Reason Stop Dose Admin Acetaminophen 650 mg 05/16/17 22:35 05/20/17 05:24 Tylenol - PO 650 mg Q6H PRN Administration PAIN LEVEL 6-10 Amlodipine Besylate 10 mg 05/17/17 10:00 05/20/17 09:05 Norvasc - PO 10 mg DAILY MARGARITA Administration Cholecalciferol 2,000 unit 05/17/17 10:00 05/20/17 09:05 Vitamin D3 - PO 2,000 unit DAILY MARGARITA Administration Docusate Sodium 100 mg 05/20/17 22:00 Colace - PO TID MARGARITA Lidocaine 1 patch 05/17/17 10:45 05/20/17 09:05 Lidoderm Patch - TP 1 patch DAILY MARGARITA Administration Lidocaine/Aluminum/Magnesium/Simeth 15 ml 05/17/17 00:00 05/20/17 17:42 Magic Mouthwash *Sjr Formula* - MM Not Given Q6HPO MARGARITA Miscellaneous 1 each 05/17/17 22:00 05/19/17 22:39 Lidoderm Patch Removal MC 1 each DAILY@2200 MARGARITA Administration Gelclair Oral Gel - 1 each 05/17/17 18:00 05/20/17 09:05 Patient Own Med NR 1 each DAILY MARGARITA Administration Polyethylene Glycol 17 gm 05/21/17 10:00 Miralax (For Daily Use) - PO DAILY MARGARITA Ranitidine HCl 150 mg 05/17/17 10:00 05/20/17 09:05 Zantac - PO 150 mg DAILY MARGARITA Administration Senna 1 tab 05/20/17 22:00 Senna - PO HS MARGARITA Sotalol HCl 120 mg 05/17/17 10:00 05/20/17 09:05 Betapace - PO 120 mg BID MARGARITA Administration Warfarin Sodium 4 mg 05/18/17 18:00 05/19/17 18:26 Coumadin - PO 4 mg DAILY@1800 MARGARITA Administration RADIOLOGY: Head CT x2 Negative for acute intracranial bleeds CT Lumbar Spine mild T12 compression fracture CT abdomen/pelvis No signs of hematoma or fluid collection Abdominal KUB ASSESSMENT/PLAN: Patient is an 86yo F with PMHx of Afib on Coumadin, Lymphoma on radiation therapy, Myeloproliferative DIsorder, HTN, Tucker's thyroiditis, and Anxiety. She was brought by EMS after a mechanical fall. She was admitted for r/ o bleed since she is on anticoagulation. #Constipation - Pt was on aggressive bowel regimen (colace, senna, miralax, suppositories) - After addition of lactulose pt had incontractable abdominal pain, hyperactive bowel sounds, D/c'd all bowel meds, KUB ordered, will f/u # S/p mechanical fall R/o bleed - Coumadin restarted to home dose after acute bleed was ruled out with CT scans - PT on Saturday Max 55 ft, inhibited by pain, needs walker on discharge # Mild T12 Compression Fracture - Neurosurgery recommends conservative management, pain control, will reconsider brace - Pt refuses Percocet and Morphine; Now on Tylenol + Lidocaine patch + Tramadol # Hx of Atrial Fibrillation - Pt is restarted on Coumadin 3mg once. 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 - Hx of transfusion dependent anemia, now maintained on Epo 1-2x weekly - Given Epo 40,000 U x1 - Per Oncology, stopped hydroxyurea to benefit Hgb - Radiation treatment to be determined by oncology # 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 - Magic mouth wash 15cc S&S daily - Gelclair oral gel packet (patient's own medication) #Allergic Rhinitis -Continue home Ranitidine 150mg PO daily #F/E/N - Fluids: Hold IVF - Electrolytes: Electrolytes wnl - Diet: Regular diet # Prophylaxis - DVT: SCDs - GI: Not indicated #Dispo - Discharge to [facility] (pts is there) - Will wait for PT clearance + resolution of constipation #Code Status -DNR. Visit type - Emergency Visit Emergency Visit: No - New Patient This patient is new to me today: No - Critical Care Critical Care patient: No
[2017-05-20] MEDS: WARFARIN NA 2 MG TABLET (UD) PO SCH (18:18)
--- NOTE | 2017-05-20 19:21 | PN ---
Teaching Attending Note Name of Resident: Maryse Hung ATTENDING PHYSICIAN STATEMENT I saw and evaluated the patient. I reviewed the resident's note and discussed the case with the resident. I agree with the resident's findings and plan as documented. Patient stable and still complaining of constipation- lactulose one dose ordered. Patient if stable can be discharged to [facility] for continued care as her is also at that facility. PT consult and SW consult for placement.
[2017-05-20] MEDS ORDERED: SODIUM CHLORIDE 1,000 ML IV SCH (20:00)
[2017-05-20] MEDS: LIDOCAINE PATCH REMOVAL MC SCH (21:52)
[2017-05-20] MEDS ORDERED: SENNOSIDES 8.6MG TABLET (FP) PO SCH (22:00)
[2017-05-21] MEDS: ACETAMINOPHEN 325 MG TABLET (FP) PO PRN ×2 (00:06→18:15)
[2017-05-21] MEDS: MAG HYDROX/ALH/SMC/DPHA/LIDO 240 ML MOUTHWASH MM SCH ×4 (00:08→17:57)
[2017-05-21] MEDS ORDERED: PT OWN MED DRAWER 7, Y5N ONE ×2 (06:04→06:49)
[2017-05-21] MEDS: DOCUSATE SODIUM 100 MG CAPSULE (FP) PO SCH ×2 (06:07→13:57)
[2017-05-21 07:27] LABS: MCH 24.4 pg (25.7-33.7); MCHC 31.6 g/dl (32.0-36.0); MEAN CELL VOLUME 77.1 fl (80-96); MEAN PLT VOLUME 9.4 fl (7.5-11.1); PLATELET COUNT 199 K/MM3 (134-434); RDW 18.2 % (11.6-15.6); WHITE BLOOD COUNT 8.9 K/mm3 (4.0-10.0)
[2017-05-21 07:33] LABS: PROTHROMBIN TIME (PATIENT) 53.7 SEC (9.98-11.88)
[2017-05-21 07:44] LABS: INR 4.73 (0.82-1.09)
--- NOTE | 2017-05-21 07:44 | PN ---
Physical Exam: SUBJECTIVE: Patient seen and examined ths AM. Still complains of abdominal pain , has improved from yseterday. Prior episodes of vomitting with dark brown emesis. No vomiting episodes last night. Has been having diarrhea all night. Abdominal pain now bothering her more than back pain. GI consutl ordered for today, will f/u. No CP, no SOB, no chills. UPDATE: At 10:30am the nurse called the MD because patient had large bowel movement with black stool, smells of melena. Worried for GI bleed since now INR is supratherapeutic and hemoglobin is dropping. Will order NPO, stool occult, protonix drip, increase IVF to 125mL/hr, STAT CBC and PT/INR. Prior echo shows mild LV hypokinesis, will decrease IVF later today. Will wait for GI to see. OBJECTIVE: Vital Signs Period Temp Pulse Resp BP Sys/Conde Pulse Ox Last 24 Hr 98 F-99.3 F 57-73 18-20 113-137/50-60 96 GENERAL: The patient is awake, alert, but is in moderate discomfort due to abdominal pain EYES: PERRL, extraocular movements intact ENT: Dry mucous membranes, R sided tongue bluish discoloration, R sided yellow circular tongue sores NECK: Neck was supple, not tender to palpation. Mildly limited ROM of neck, discomfort with movement LUNGS: Breath sounds equal, upper lung hernández were clear to auscultation bilaterally, basilar crackles noted HEART: Regular rate and rhythm, S1, S2 +2/6 systolic murmur heard best in the tricuspid region ABDOMEN: Soft but mildly distended, tender to deep palpation, rebound tenderness , hyperactive bowel sounds EXTREMITIES: 2+ pulses, warm, well-perfused, no edema. Telangiectasias present on extremities. Tenderness to palpation of the mid/lower back. NEUROLOGICAL: A full neurologic exam was completed. Patient was oriented to person, place, and month. Cranial nerves II through XII were intact. Sensation was intact in the face and body bilaterally. Muscle strength was 5/5 in all extremities. Reflexes were 2+ in all extremities. FTN test was intact. Vibratory sensation and proprioception was intact. Gait was not observed due to patient's back discomfort . Laboratory Results - last 24 hr 05/20/17 06:25 Sodium 132 L Potassium 4.5 Chloride 97 L Carbon Dioxide 27 Anion Gap 8 BUN 17 Creatinine 0.7 Random Glucose 91 Calcium 8.2 L Active Medications Generic Name Dose Route Start Last Admin Trade Name Gaston PRN Reason Stop Dose Admin Acetaminophen 650 mg 05/16/17 22:35 05/21/17 00:06 Tylenol - PO 650 mg Q6H PRN Administration PAIN LEVEL 6-10 Amlodipine Besylate 10 mg 05/17/17 10:00 05/20/17 09:05 Norvasc - PO 10 mg DAILY MARGARITA Administration Cholecalciferol 2,000 unit 05/17/17 10:00 05/20/17 09:05 Vitamin D3 - PO 2,000 unit DAILY MARGARITA Administration Docusate Sodium 100 mg 05/20/17 22:00 05/21/17 06:07 Colace - PO Not Given TID MARGARITA Sodium Chloride 1,000 mls @ 42 mls/hr 05/20/17 20:00 05/20/17 21:37 Normal Saline - IV 42 mls/hr ASDIR MARGARITA Administration Lidocaine 1 patch 05/17/17 10:45 05/20/17 09:05 Lidoderm Patch - TP 1 patch DAILY MARGARITA Administration Lidocaine/Aluminum/Magnesium/Simeth 15 ml 05/17/17 00:00 05/21/17 06:11 Magic Mouthwash *Sjr Formula* - MM 15 ml Q6HPO MARGARITA Administration Miscellaneous 1 each 05/17/17 22:00 05/20/17 21:52 Lidoderm Patch Removal MC Not Given DAILY@2200 [facility] Gelclair Oral Gel - 1 each 05/17/17 18:00 05/20/17 09:05 Patient Own Med NR 1 each DAILY MARGARITA Administration Polyethylene Glycol 17 gm 05/21/17 10:00 Miralax (For Daily Use) - PO DAILY [facility] Ranitidine HCl 150 mg 05/17/17 10:00 05/20/17 09:05 Zantac - PO 150 mg DAILY MARGARITA Administration Senna 1 tab 05/20/17 22:00 05/20/17 21:41 Senna - PO Not Given HS [facility] Sotalol HCl 120 mg 05/17/17 10:00 05/20/17 21:41 Betapace - PO 120 mg BID MARGARITA Administration Warfarin Sodium 4 mg 05/18/17 18:00 05/20/17 18:18 Coumadin - PO 4 mg DAILY@1800 MARGARITA Administration ASSESSMENT/PLAN: Patient is an 86yo F with PMHx of Afib on Coumadin, Lymphoma on radiation therapy, Myeloproliferative DIsorder, HTN, Tucker's thyroiditis, and Anxiety. She was brought by EMS after a mechanical fall. She was admitted for r/ o bleed since she is on anticoagulation. # Abdominal Pain - Patient was initially constipated, put on an aggressive bowel regimen (colace , senna, miralax, suppositories), after addition of lactulose pt had incontractable abdominal pain, hyperactive bowel sounds, vomitting dark brown emesis, we d/c'd the bowel regimen and KUB flatplate was ordered - showed ileus , but GI is worried about possible dilated bowel loops (obstruction?) + rebound tenderness, surgery consulted - Pt also had dark brown/black stool, tracely guiac positive, FOBT negative, GI says doesn't appear to be melena, possible due to mucosal trauma from the diarrhea and vomittnig since her INR was supratherapeutic . - Prophylactically put patient NPO, Protonix drop, increased IVF to NS 42mL/hr - Ordered CT abd/pelvis with PO contrast, pt has history of sigmoid stricture, could have impacted her constipation # Hx of Atrial Fibrillation - with elevated INR - INR 4.78 --> 5.93. 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 - Hx of transfusion dependent anemia, now maintained on Epo 1-2x weekly - Given Epo 40,000 U x1 - Per Oncology, stopped hydroxyurea to benefit Hgb - Radiation treatment to be determined by oncology # 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 - Magic mouth wash 15cc S&S daily - Gelclair oral gel packet (patient's own medication) #Allergic Rhinitis - Continue home Ranitidine 150mg PO daily #F/E/N - Fluids: Hold IVF - Electrolytes: Electrolytes wnl - Diet: Regular diet # Prophylaxis - DVT: SCDs - GI: Not indicated #Dispo - Discharge to [facility] (pts is there) - Will wait for PT clearance + resolution of constipation + GI consult #Code Status -DNR. Visit type - Emergency Visit Emergency Visit: No - New Patient This patient is new to me today: No - Critical Care Critical Care patient: No - Discharge Referral Referred to [facility] Med P.C.: No
[2017-05-21 07:54] LABS: ANION GAP 10 (8-16); CALCIUM 8.2 mg/dL (8.5-10.1); CO2 27 mmol/L (21-32); GLUCOSE,RANDOM 100 mg/dL (74-106)
[2017-05-21 07:56] LABS: CREATININE 1.2 mg/dL (0.55-1.02)
[2017-05-21] MEDS: LIDOCAINE 5% TOPICAL PATCH TP SCH (08:59)
[2017-05-21] MEDS: CHOLECALCIFEROL (VITAMIN D3) 1,000 UNIT TABLET (FP) PO SCH (09:00)
[2017-05-21] MEDS: RANITIDINE HCL 150 MG TABLET (FP) PO SCH (09:00)
[2017-05-21] MEDS: SOTALOL HCL 80 MG TABLET (FP) PO SCH ×2 (09:00→21:37)
[2017-05-21] MEDS: amLODIPine BESYLATE 10 MG TABLET (FP) PO SCH (09:00)
[2017-05-21] MEDS: [UNRECOGNIZED DRUG - OTHER] NR SCH (09:07)
[2017-05-21] MEDS ORDERED: POLYETHYLENE GLYCOL 3350 119 GM BTL PO SCH (10:00)
[2017-05-21] MEDS: SODIUM CHLORIDE 1,000 ML IV SCH (10:58)
--- NOTE | 2017-05-21 11:31 | CON.GI ---
Consult Consult Specialty:: GI Referred by:: Hospitalist Service Reason for Consultation:: Vomiting, constipation and abdominal pain - History of Present Illness Chief Complaint: I wasn't able to have a bowel movement for 4 days History of Present Illness: 86F admitted through [facility] ER 05/16 having been BIBEMS after sustaining a fall resulting in her hitting her head. X-Ray revealed a T12 compression fracture. She is being treated for lymphoma and is on on RT (treatment #7 of 20 the day of her fall). She had also complained of constipation prior to her admission and during her admission. She was given colace, an enema, MOM, MiraLAX and ultimately Lactulose yesterday. She then complained of severe abdominal pain and vomited x 3 times yesterday, the last episode being described as dark with the first 2 being described as greenish. She has had multiple liquid dark brown bowel movements since yesterday. She if followed by curb attendant Dr. Brandon Zambrano. She had a colonoscopy 04/17 revealing a short stricture with stercoral ulceration at the rectosigmoid junction as well as sigmoid diverticulosis. She also has seen him for complaints of chronic constipation and GERD. There has been no further vomiting, her hgb was noted to be 7.6 today, and she continues to complain of abdominal pain. - History Source History Provided By: Patient, Medical Record - Past Medical History Cardio/Vascular: Yes: AFIB, HTN, Other (Mitral Valve Prolapse) Gastrointestinal: Yes: GERD Heme/Onc: Yes: Anemia, Myeloproliferative Synd Psych: Yes: Anxiety ENT: Yes: Allergic Rhinitis, Sinusitis Endocrine: Yes: Other (Hashimotos thyroiditis) - Past Surgical History Past Surgical History: Yes: Appendectomy, Cataract Removal (bilateral), Oopherectomy (bilateral), Tonsillectomy Additional Surgical History: lip cancer excised - Alcohol/Substance Use Hx Alcohol Use: No - Smoking History Smoking history: Former smoker Have you smoked in the past 12 months: No Aproximately how many cigarettes per day: 2 If you are a former smoker, when did you quit?: 60 years ago - Social History Usual Living Arrangement: Alone (, in [place]) ADL: Independent 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 Place of : [facility] History of Recent Travel: No Home Medications - Allergies Allergies/Adverse Reactions: Allergies Allergy/AdvReac Type Severity Reaction Status Date / Time propoxyphene napsylate Allergy Severe Swelling Verified 05/16/17 17:58 [From Darvocet-N 100] aspirin Allergy Difficulty Verified 05/16/17 17:58 Breathing - Home Medications Home Medications: Ambulatory Orders Amlodipine Besylate [Norvasc -] 10 mg PO DAILY #0 tablet 05/13/13 Clonazepam [Klonopin] 0.5 mg PO BID 04/21/14 Hydroxyurea [Hydrea 500Mg Capsule -] 500 mg PO DAILY 04/21/14 Ranitidine [Zantac -] 150 mg PO BID 06/10/15 Sotalol HCl [Sotalol] 80 mg PO TID 06/10/15 Warfarin Na [Coumadin -] 4 mg PO DAILY 06/10/15 Cholecalciferol (Vitamin D3) [Vitamin D3] 2,000 unit PO DAILY 03/22/16 Epoetin Chris [Procrit] 0 unit IJ ASDIR 09/11/16 Cranberry 400 mg PO DAILY 02/21/17 Mag Hydrox/Alh/Smc/Dpha/Lido [Magic Mouthwash *Sjr Formula* -] 15 ml MM Q6HPO # 1 mouthwash 05/16/17 Pot Sor/Hy-Ethylcel/Pvp/Hyalur [Gelclair Oral Gel Packet] 15 ml MM DAILY #1 gel.packet 05/16/17 Systane Ultra 0.4-0.3% Eye Drp TID 05/18/17 Family Disease History - Family Disease History Family Disease History: Other: Father (CVA) Review of Systems - Review of Systems Constitutional: denies: Chills, Unintentional Wgt. Loss HENT: reports: Throat Pain Cardiovascular: denies: Chest Pain Respiratory: denies: SOB Gastrointestinal: reports: Abdominal Pain, Bloating, Constipation, Diarrhea, Vomiting. denies: Rectal Bleeding Physical Exam-GI Vital Signs: Vital Signs Temperature 98.7 F 05/21/17 06:37 Pulse Rate 67 05/21/17 06:37 Respiratory Rate 20 05/21/17 06:37 Blood Pressure 113/50 05/21/17 06:37 O2 Sat by Pulse Oximetry (%) 96 05/20/17 21:00 Constitutional: Yes: Calm Eyes: No: Sclera Icterus Cardiovascular: Yes: Regular Rate and Rhythm, Murmur Respiratory: Yes: CTA Bilaterally Gastrointestinal Inspection: Yes: Other (Mildly protuberant in appearance) ...Auscultate: Yes: Normoactive Bowel Sounds ...Palpate: Yes: Tenderness, Tenderness, Rebound (Diffusely however more prominent on the left side). No: Guarding ...Percussion: Yes: Dullness. No: Tympanitic ...Rectal Exam: Yes: Other (Dark brown liquid stool, tracely guaiac +) Edema: Yes Edema: LLE: Trace, RLE: Trace Neurological: Yes: Alert, Oriented Labs: CBC, BMP 05/21/17 05:35 05/21/17 05:35 INR, PTT INR 4.73 (0.82-1.09) H* D 05/21/17 05:35 Hepatic Panel Total Bilirubin 1.2 mg/dL (0.2-1.0) H 05/16/17 20:18 AST 56 U/L (15-37) H D 05/16/17 20:18 ALT 43 U/L (12-78) 05/16/17 20:18 Alkaline Phosphatase 122 U/L (45-117) H 05/16/17 20:18 Albumin 4.1 g/dl (3.4-5.0) 05/16/17 20:18 Problem List - Problems (1) Abdominal pain Assessment/Plan: Abdominal pain: Associated with constipation and episodes of vomiting yesterday She does have liquid stool that is tracely guaiac positive however it does not appear to be melena. In the setting of supratherapeutic INR vomiting could have led to UGI tract mucosal trauma and oozing of blood. I question if the vomiting was secondary to the constipation along with laxative therapies. My concern is the rebound tenderness elicited on exam today. I discussed this with her medical residents and as part of continued evaluation I suggested: - Agree with NPO except meds for now - CT scan of the abdomen and pevis with PO contrast was ordered. She does have a previous history of sigmoid stricture per Dr. Zambrano's last office note and I question if this impacted her constipation and current clinical picture - Surgical evaluation - Monitor H/H and for signs of active ongoing GI bleeding - Will follow with you Code(s): R10.9 - UNSPECIFIED ABDOMINAL PAIN
[2017-05-21 11:44] LABS: MCHC 31.1 g/dl (32.0-36.0); MEAN CELL VOLUME 77.2 fl (80-96); MEAN PLT VOLUME 9.2 fl (7.5-11.1); PLATELET COUNT 231 K/MM3 (134-434); RDW 18.3 % (11.6-15.6); WHITE BLOOD COUNT 11.8 K/mm3 (4.0-10.0)
[2017-05-21] MEDS: PANTOPRAZOLE SODIUM 80 MG in SODIUM CHLORIDE 100 ML IVPB SCH ×2 (12:00→21:39)
[2017-05-21 12:21] LABS: PROTHROMBIN TIME (PATIENT) 67.7 SEC (9.98-11.88)
[2017-05-21 12:25] LABS: INR 5.93 (0.82-1.09)
--- NOTE | 2017-05-21 13:15 | PN ---
Teaching Attending Note Name of Resident: Maryse Hung ATTENDING PHYSICIAN STATEMENT I saw and evaluated the patient. I reviewed the resident's note and discussed the case with the resident. I agree with the resident's findings and plan as documented. SUBJECTIVE:large episode of black tarry stools this AM. assoc with nonspecific, diffuse abdominal tenderness. states she had multiple BM yesterday (normal per pt). and episode of vomiting yesterday she reports black material no blood or clots. states she has no hx of GI bleed or ulcer, never had EGD in the past. denies recent changes to her home medications been on stable coumadin dosing for years. denies NSAID use. OBJECTIVE: Last Vital Signs Temp Pulse Resp BP Pulse Ox 98.7 F 67 20 113/50 96 05/21/17 06:37 05/21/17 06:37 05/21/17 06:37 05/21/17 06:37 05/20/17 21:00 General NAD CV S1 S2 RRR no murmur/rub/gallop LUngs CTA B/L No wheezing/rales/rhonchi Abdomen soft, diffusely tender +distention hypoactive bs ASSESSMENT AND PLAN: 86 y/o lady with h/o Lymphoma , on radiation , myelo-proliferative disease , HTN , A fib on coumadin and other medical problems who presented after a mechanical fall. 1. Black stools- concern for upper GI bleed, given supratherapeutic INR and black stools in setting of drop in H/H. call placed out to GI. NPO, 2 large bore IV needles, IVF, protonix ggt. trend Hgb q6H. FOBT sent. GI consulted yesterday to diarrhea, which was likely due to aggressive bowel regimen, call placed out now due to current events. AXR showing ileus. Obtain CT abdomen/ pelvis with contrast, 2. Supratherapeutic INR- likely due to tramadol interaction. will hold on giving vitamin K at this time until repeat Hgb, if stable will hold vitamin K, if significant drop will give 3. T12 fracture- pain is controlled. only used tramadol once in 24H. will give perocet prn pain. avoid NSAID like products or tramadol 4. Afib- rate controlled. cont sotatolol 5. DVT ppx- SCD. supratherapeutic INR
--- NOTE | 2017-05-21 13:37 | CONS ---
DATE OF CONSULTATION: 05/20/2017 REFERRING PHYSICIAN: Markos Palumbo MD REASON FOR CONSULTATION: Right parotid lymphoma. 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 She has liver lesions consistent with hepatocellular disease, and the workup is pending. She has been receiving palliative radiation therapy to the enlarging right parotid mass, having completed 7 of 20 fractions thus far, for a total dose of 1260 cGy. She has had a good response of the parotid mass. She was admitted following a fall. She underwent multiple CT scans ruling out intracranial hemorrhage and intraabdominal hemorrhage. Scans do show a T12 vertebral compression fracture secondary to the fall. She is not a surgical candidate per Dr. Osuna. She has significant back pain controlled with analgesics. She has constipation probably from meds. She denies incontinence, although she has been using a diaper due to her inability to get to the bathroom efficiently. She denies swallowing or breathing difficulties. She has painful sores on the right side of her tongue secondary to the radiation therapy and has been using the Gelclair and Magic Mouthwash solution as we had instructed. PAST MEDICAL HISTORY: Hypertension, paroxysmal atrial fibrillation, mitral valve prolapse, GERD, anxiety, Tucker's disease, anemia, myelofibrosis, thrombocytopenia, bilateral hearing loss. PAST SURGICAL HISTORY: Cataract excision in 2001, tonsillectomy in childhood, benign left breast biopsy 25 years ago, appendectomy at age 17, dilatation and curettage for premenopausal bleeding in 1986. Ovaries were removed in 2006. OBSTETRICAL/GYNECOLOGIC HISTORY: Menarche at 14, menopause at 51, parity at 28. She used control for 1 year. ALLERGIES: ASPIRIN, DARVOCET. CURRENT MEDICATIONS: Lidoderm patch, Gelclair, Magic Mouthwash, Coumadin, sotalol, Colace, Norvasc, Zantac, vitamin D, Senokot, Ultram. SOCIAL HISTORY: resides in a fci secondary to dementia. Prior to admission, she was living at home alone. She has 2 daughters and 2 sons. She does not smoke or consume alcoholic beverages. 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 FAMILY HISTORY: Father at age 70. Mother at age 92. She has 4 siblings. There is no history of malignancy in the family. REVIEW OF SYSTEMS: As noted above. PHYSICAL EXAMINATION: General: Elderly female in no acute distress lying in the hospital bed. She is in some distress when she tries to move for the examination. Vital Signs: Temperature 98.9, blood pressure 140/70, pulse 64, respiratory rate 20. HEENT: Normocephalic and atraumatic. No ecchymosis or raccoon's eyes. Mucous membranes are moist. Sclerae are anicteric. Oral cavity is moist, with patchy mucositis on the right lateral aspect of the oral tongue. No chapis or other lesions in the oral cavity. Neck: Significant decrease in the right parotid mass, with residual firm induration in the preauricular and postauricular areas of the neck. Small bilateral submandibular lymph nodes are stable. Chest: Lungs are clear. Abdomen: Soft, nontender. Musculoskeletal: Point tenderness in the lower thoracic spine. No paraspinal mass or edema. Neurologic: Alert and oriented x3. Cranial nerves II through XII are intact. No sensory level. Gait was not tested for the patient's safety. RADIOLOGIC DATA: As noted. PATHOLOGIC DATA: As noted. 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 She was admitted for mechanical vertebral compression fracture. She is being managed conservatively. She will continue pain management and bowel regimen due to constipation. On examination, she was unable to lie flat, which is required for her radiation therapy. We discussed increasing analgesics to make her more comfortable, but she refuses as she is afraid it might worsen her constipation. She wishes to have time to recover and for now agrees to reevaluation in about 1 week. We will proceed with further management as outpatient. She would likely benefit from physical therapy. She will need follow up with Dr. Osuna for the vertebral compression fracture. She will need followup with Dr. Rodriguez, her medical oncologist, though she has declined systemic therapy up to this point for her lymphoma. Thank you for asking me to see this patient. NEEL MENDENHALL M.D. CHARLA/[id number] MTDD
[2017-05-21 13:53] LABS: ALK PHOS 165 U/L (45-117); BILIRUBIN,TOTAL 1.3 mg/dL (0.2-1.0); SGOT/AST 96 U/L (15-37); SGPT/ALT 44 U/L (12-78); TOT PROT 5.5 g/dl (6.4-8.2)
--- NOTE | 2017-05-21 14:25 | PN ---
Progress Note (short form) - Note Progress Note: surgery 86f admitted for head trauma with history of lymphoma and sigmoid stricture with newly diagnosed stercoral ulcer. Pt has been vigorously treated for constipation and developed abd pain, vomiting, and was guaiac positive with soft stool. wbc 11 and afebrile. INR 6 with last dose of coumadin 6pm yesterday. urine output not being recorded. Pt noted to have rebound tenderness by GI today. Pt awaiting CT. Plan- abd pain, rebound in setting of sigmoid stricture, stercoral ulcer, and coumadin toxicity. Formal consult to follow. Await CT results. Would need to reverse coagulopathy for any surgical intervention if needed.
[2017-05-21 15:38] LABS: MCH 23.9 pg (25.7-33.7); MCHC 31.2 g/dl (32.0-36.0); MEAN CELL VOLUME 76.5 fl (80-96); MEAN PLT VOLUME 9.4 fl (7.5-11.1); PLATELET COUNT 233 K/MM3 (134-434); RDW 18.5 % (11.6-15.6); WHITE BLOOD COUNT 10.6 K/mm3 (4.0-10.0)
--- NOTE | 2017-05-21 15:51 | PN ---
Progress Note (short form) - Note Progress Note: Patients seen and examined. Events noted Patient's main complain today is abdominal pain did have Bowel movements, with diarrhea, initially normal and later reportedly dark.she mentions of feeling tired. General: appears in pain Extremities: No pallor or icterus, no pedal edema. Chest:CTA b/l Abdomen: Rebound tenderness present Neuro: Alert, oriented, non-focal. CVS: Normal sinus rhythm, S1, S2, no gallop or murmur. H and N: R parotid mass palpable CBC, BMP 05/21/17 05:35 Abnormal Lab Results 05/21/17 05/21/17 05/21/17 05:35 05:35 05:35 WBC RBC 3.12 L Hgb 7.6 L D Hct 24.1 L MCV 77.1 L MCH 24.4 L MCHC 31.6 L RDW 18.2 H INR 4.73 H* D Sodium 131 L Chloride 94 L BUN 35 H D Creatinine 1.2 H D Calcium 8.2 L Total Bilirubin 1.3 H AST 96 H D Alkaline Phosphatase 165 H D Total Protein 5.5 L Albumin 3.0 L D Crossmatch 05/21/17 05/21/17 05/21/17 11:15 11:15 14:20 WBC 11.8 H D RBC 3.05 L Hgb 7.3 L Hct 23.5 L MCV 77.2 L MCH 24.0 L MCHC 31.1 L RDW 18.3 H INR 5.93 H* Sodium Chloride BUN Creatinine Calcium Total Bilirubin AST Alkaline Phosphatase Total Protein Albumin Crossmatch See Detail INR, PTT INR 5.93 (0.82-1.09) H* 05/21/17 11:15 Current Medications Generic Name Dose Route Start Last Admin Trade Name Freq PRN Reason Stop Dose Admin Acetaminophen 650 mg 05/16/17 22:35 05/21/17 00:06 Tylenol - PO 650 mg Q6H PRN Administration PAIN LEVEL 6-10 Amlodipine Besylate 10 mg 05/17/17 10:00 05/21/17 09:00 Norvasc - PO 10 mg DAILY MARGARITA Administration Cholecalciferol 2,000 unit 05/17/17 10:00 05/21/17 09:00 Vitamin D3 - PO 2,000 unit DAILY MARGARITA Administration Docusate Sodium 100 mg 05/20/17 22:00 05/21/17 13:57 Colace - PO Not Given TID MARGARITA Pantoprazole Sodium 80 mg/ 100 mls @ 10 mls/hr 05/21/17 11:00 05/21/17 12:00 Sodium Chloride IVPB 10 mls/hr Q10H MARGARITA Administration 8 MG/HR Sodium Chloride 1,000 mls @ 100 mls/hr 05/21/17 10:45 05/21/17 10:58 Normal Saline - IV 100 mls/hr ASDIR MARGARITA Administration Lidocaine 1 patch 05/17/17 10:45 05/21/17 08:59 Lidoderm Patch - TP 1 patch DAILY MARGARITA Administration Lidocaine/Aluminum/Magnesium/Simeth 15 ml 05/17/17 00:00 05/21/17 13:00 Magic Mouthwash *Sjr Formula* - MM 15 ml Q6HPO MARGARITA Administration Miscellaneous 1 each 05/17/17 22:00 05/20/17 21:52 Lidoderm Patch Removal MC Not Given DAILY@2200 ON LICENSE OF [facility] Gelclair Oral Gel - 1 each 05/17/17 18:00 05/21/17 09:07 Patient Own Med NR Not Given DAILY ON LICENSE OF [facility] Polyethylene Glycol 17 gm 05/21/17 10:00 05/21/17 09:00 Miralax (For Daily Use) - PO Not Given DAILY ON LICENSE OF [facility] Ranitidine HCl 150 mg 05/17/17 10:00 05/21/17 09:00 Zantac - PO 150 mg DAILY MARGARITA Administration Senna 1 tab 05/20/17 22:00 05/20/17 21:41 Senna - PO Not Given HS ON LICENSE OF [facility] Sotalol HCl 120 mg 05/17/17 10:00 05/21/17 09:00 Betapace - PO 120 mg BID MARGARITA Administration Warfarin Sodium 4 mg 05/18/17 18:00 05/20/17 18:18 Coumadin - PO 4 mg DAILY@1800 MARGARITA Administration Last Vital Signs Temp Pulse Resp BP Pulse Ox 98.1 F 67 18 133/44 87 L 05/21/17 14:00 05/21/17 14:00 05/21/17 14:00 05/21/17 14:00 05/21/17 09:00 Assessment/Plan: New abdominal pain: -?Stricture/ulcer -appreciate GI consult -Awaiting CT -Being seen by Surgery Coagulopathy: -in the setting of coumadin -holding coumadin. -Correction recommended with FFP and Vit K prior to procedures/active bleeding/ Hemodynamic instability. -discussed with Hospitalist attending Worsening anemia: -?etiology ?bleeding -Active Type and screen ordered -Ordered One unit of PRBC for now -CBC q6-8hrs with PT/PTT MALT lymphoma of the Parotid: -Receiving RT as an OP. Rad Onc consult appreciated h/o Ar ET -received procrit on 05/18/2017 Iron overload: -to be monitored, presently on no treatment Back pain from Compression fracture: -seen by Neurosurgery -conservative management Will follow closely
[2017-05-21] MEDS ORDERED: CEFTRIAXONE 2 GM in DEXTROSE 5%-WATER - 100 ML IVPB SCH (17:30)
--- NOTE | 2017-05-21 17:44 | PN ---
Progress Note (short form) - Note Progress Note: CT scan reveals left sided colitis involving distal transverse as well. Given distribution, recent laxative therapy, ischemic colitis would need to be considered in differential. Would check stool for c. Diff as well, consider Abx as well and consider ID evaluation, with caution given elevated INR, NPO, surgical evaluation. Problem List - Problems (1) Abdominal pain Code(s): R10.9 - UNSPECIFIED ABDOMINAL PAIN
[2017-05-21] MEDS: METRONIDAZOLE 500 MG PREMIXED 100 ML IVPB SCH (17:57)
[2017-05-21] MEDS ORDERED: clonazePAM 0.5 MG TABLET PO ONE (18:59)
[2017-05-21 19:37] LABS: METAMYELOCYTE 1 % (0-2)
[2017-05-21 19:38] LABS: ANISOCYTOSIS 1+; MICROCYTOSIS 1+
[2017-05-21] MEDS ORDERED: CEFTRIAXONE 2 GM in DEXTROSE 5%-WATER 100 ML IVPB SCH (20:00)
[2017-05-21] MEDS ORDERED: DEXTROSE 5%-WATER 100 ML IVPB ONE (20:27)
[2017-05-21] MEDS: CEFTRIAXONE 2 GM in DEXTROSE 5%-WATER 100 ML IVPB SCH (20:29)
[2017-05-21] MEDS: LIDOCAINE PATCH REMOVAL MC SCH (22:00)
[2017-05-22] MEDS: MAG HYDROX/ALH/SMC/DPHA/LIDO 240 ML MOUTHWASH MM SCH ×5 (00:30→20:00)
[2017-05-22] MEDS: METRONIDAZOLE 500 MG PREMIXED 100 ML IVPB SCH ×3 (01:37→18:11)
[2017-05-22 01:50] LABS: MCH 24.9 pg (25.7-33.7); MCHC 32.1 g/dl (32.0-36.0); MEAN CELL VOLUME 77.7 fl (80-96); MEAN PLT VOLUME 9.9 fl (7.5-11.1); PLATELET COUNT 199 K/MM3 (134-434); RDW 17.8 % (11.6-15.6); WHITE BLOOD COUNT 6.7 K/mm3 (4.0-10.0)
[2017-05-22] MEDS: PANTOPRAZOLE SODIUM 80 MG in SODIUM CHLORIDE 100 ML IVPB SCH ×2 (06:25→07:54)
[2017-05-22 06:51] LABS: BASOPHIL 0.4 % (0-2.0); EOSINOPHIL 0.3 % (0-4.5); MCH 24.7 pg (25.7-33.7); MCHC 31.7 g/dl (32.0-36.0); MEAN CELL VOLUME 77.8 fl (80-96); MEAN PLT VOLUME 9.6 fl (7.5-11.1); NEUTROPHILS 84.4 % (42.8-82.8); PLATELET COUNT 210 K/MM3 (134-434); RDW 17.6 % (11.6-15.6); WHITE BLOOD COUNT 6.5 K/mm3 (4.0-10.0)
--- NOTE | 2017-05-22 06:55 | PN ---
Physical Exam: SUBJECTIVE: Patient seen and examined this AM. Patient looks better this AM, worried about abdominal discomfort more than back-pain. Explained to patient about the plan, made aware. Nurses state that Hgb 7.0 --> 7.6 after 1 unit PRBC , no signs of active bleeding. OBJECTIVE: Vital Signs Period Temp Pulse Resp BP Sys/Conde Pulse Ox Last 24 Hr 98.1 F-99.7 F 61-72 18-24 114-137/42-61 87 GENERAL: The patient is awake, alert, sitting upright in bed, doesnt look in distress, but anxious. EYES: PERRL, extraocular movements intact ENT: Dry mucous membranes, R sided tongue bluish discoloration, R sided yellow circular tongue sores NECK: Neck was supple, not tender to palpation. Mildly limited ROM of neck, discomfort with movement LUNGS: Breath sounds equal, upper lung hernández were clear to auscultation bilaterally, basilar crackles noted HEART: Irregularly Irregular rhythm, S1, S2 +2/6 systolic murmur heard best in the tricuspid region ABDOMEN: Protuberant abdomen which is unchanged, soft, guarding to right lower quadrant, +rebound tenderness, hypoactive bowel sounds EXTREMITIES: 2+ pulses, warm, well-perfused, no edema. Telangiectasias present on extremities. Tenderness to palpation of the mid/lower back. NEUROLOGICAL: A full neurologic exam was completed. Patient was oriented to person, place, and month. Cranial nerves II through XII were intact. Sensation was intact in the face and body bilaterally. Muscle strength was 5/5 in all extremities. Reflexes were 2+ in all extremities. FTN test was intact. Vibratory sensation and proprioception was intact. Gait was not observed due to patient's back discomfort . Laboratory Results - last 24 hr 05/21/17 05/21/17 05/21/17 05:35 05:35 05:35 WBC 8.9 D RBC 3.12 L Hgb 7.6 L D Hct 24.1 L MCV 77.1 L MCH 24.4 L MCHC 31.6 L RDW 18.2 H Plt Count 199 D MPV 9.4 Neutrophils % Lymphocytes % Monocytes % Eosinophils % Basophils % Band Neutrophils Metamyelocytes Myelocytes Anisocytosis Microcytosis INR 4.73 H* D Sodium 131 L Potassium 4.8 Chloride 94 L Carbon Dioxide 27 Anion Gap 10 BUN 35 H D Creatinine 1.2 H D Creat Clearance w eGFR Y Random Glucose 100 Calcium 8.2 L Total Bilirubin 1.3 H AST 96 H D ALT 44 Alkaline Phosphatase 165 H D Total Protein 5.5 L Albumin 3.0 L D Stool Occult Blood Blood Type Antibody Screen Crossmatch 05/21/17 05/21/17 05/21/17 05:35 10:00 11:15 WBC 11.8 H D RBC 3.05 L Hgb 7.3 L Hct 23.5 L MCV 77.2 L MCH 24.0 L MCHC 31.1 L RDW 18.3 H Plt Count 231 MPV 9.2 Neutrophils % Lymphocytes % Monocytes % Eosinophils % Basophils % Band Neutrophils Metamyelocytes Myelocytes Anisocytosis Microcytosis INR Sodium Cancelled Potassium Cancelled Chloride Cancelled Carbon Dioxide Cancelled Anion Gap Cancelled BUN Cancelled Creatinine Cancelled Creat Clearance w eGFR Cancelled Random Glucose Cancelled Calcium Cancelled Total Bilirubin Cancelled AST Cancelled ALT Cancelled Alkaline Phosphatase Cancelled Total Protein Cancelled Albumin Cancelled Stool Occult Blood Negative Blood Type Antibody Screen Crossmatch 05/21/17 05/21/17 05/21/17 11:15 14:20 14:20 WBC 10.6 H RBC 2.91 L Hgb 7.0 L Hct 22.3 L MCV 76.5 L MCH 23.9 L MCHC 31.2 L RDW 18.5 H Plt Count 233 MPV 9.4 Neutrophils % 68.0 Lymphocytes % 4.0 L D Monocytes % 11.0 H D Eosinophils % [employer] Basophils % [employer] Band Neutrophils 15.0 H Metamyelocytes 1 Myelocytes 1 Anisocytosis 1+ Microcytosis 1+ INR 5.93 H* Sodium Potassium Chloride Carbon Dioxide Anion Gap BUN Creatinine Creat Clearance w eGFR Random Glucose Calcium Total Bilirubin AST ALT Alkaline Phosphatase Total Protein Albumin Stool Occult Blood Blood Type AB POSITIVE Antibody Screen Negative Crossmatch See Detail 05/22/17 00:45 WBC 6.7 D RBC 3.07 L Hgb 7.6 L Hct 23.8 L MCV 77.7 L MCH 24.9 L MCHC 32.1 RDW 17.8 H Plt Count 199 MPV 9.9 Neutrophils % Lymphocytes % Monocytes % Eosinophils % Basophils % Band Neutrophils Metamyelocytes Myelocytes Anisocytosis Microcytosis INR Sodium Potassium Chloride Carbon Dioxide Anion Gap BUN Creatinine Creat Clearance w eGFR Random Glucose Calcium Total Bilirubin AST ALT Alkaline Phosphatase Total Protein Albumin Stool Occult Blood Blood Type Antibody Screen Crossmatch Active Medications Generic Name Dose Route Start Last Admin Trade Name Gaston PRN Reason Stop Dose Admin Acetaminophen 650 mg 05/16/17 22:35 05/21/17 18:15 Tylenol - PO 650 mg Q6H PRN Administration PAIN LEVEL 6-10 Amlodipine Besylate 10 mg 05/17/17 10:00 05/21/17 09:00 Norvasc - PO 10 mg DAILY MARGARITA Administration Cholecalciferol 2,000 unit 05/17/17 10:00 05/21/17 09:00 Vitamin D3 - PO 2,000 unit DAILY MARGARITA Administration Pantoprazole Sodium 80 mg/ 100 mls @ 10 mls/hr 05/21/17 11:00 05/22/17 06:25 Sodium Chloride IVPB Not Given Q10H MARGARITA 8 MG/HR Sodium Chloride 1,000 mls @ 100 mls/hr 05/21/17 10:45 05/21/17 10:58 Normal Saline - IV 100 mls/hr ASDIR MARGARITA Administration Metronidazole 100 mls @ 100 mls/hr 05/21/17 18:00 05/22/17 01:37 Flagyl 500mg Premixed Ivpb - IVPB 100 mls/hr Q8H-IV MARGARITA Administration Ceftriaxone Sodium 2 gm/ 100 mls @ 200 mls/hr 05/21/17 20:00 05/21/17 20:29 Dextrose IVPB 200 mls/hr DAILY MARGARITA Administration Lidocaine 1 patch 05/17/17 10:45 05/21/17 08:59 Lidoderm Patch - TP 1 patch DAILY MARGARITA Administration Lidocaine/Aluminum/Magnesium/Simeth 15 ml 05/17/17 00:00 05/22/17 06:24 Magic Mouthwash *Sjr Formula* - MM 15 ml Q6HPO MARGARITA Administration Miscellaneous 1 each 05/17/17 22:00 05/21/17 22:00 Lidoderm Patch Removal MC 1 each DAILY@2200 MARGARITA Administration Gelclair Oral Gel - 1 each 05/17/17 18:00 05/21/17 09:07 Patient Own Med NR Not Given DAILY MARGARITA Ranitidine HCl 150 mg 05/17/17 10:00 05/21/17 09:00 Zantac - PO 150 mg DAILY MARGARITA Administration Sotalol HCl 120 mg 05/17/17 10:00 05/21/17 21:37 Betapace - PO 120 mg BID MARGARITA Administration Warfarin Sodium 4 mg 05/18/17 18:00 05/20/17 18:18 Coumadin - PO 4 mg DAILY@1800 [facility] Administration ASSESSMENT/PLAN: Patient is an 86yo F with PMHx of Afib on Coumadin, Lymphoma on radiation therapy, Myeloproliferative DIsorder, HTN, Tucker's thyroiditis, and Anxiety. She was brought by EMS after a mechanical fall. She was admitted for r/ o bleed. # Abdominal Pain - likely Ischemic Colitis - Patient initially constipated (due to existant sigmoid stricture?) s/p aggressive bowel regimen, after addition of lactulose pt had incontractable abdominal pain, hyperactive bowel sounds, vomitting green --> dark brown emesis , we d/c'd the bowel regimen and KUB flatplate was ordered - showed ileus. Later had large BM with dark brown/black stool, tracely guiac positive, FOBT negative - At the same time INR became supratherapeutic, Hgb was trending slowly down, possibly epithelial cells disturbed during vomiting + diarrhea, no signs of active bleed - Prophylactically put patient NPO, Protonix drop, increased IVF to NS 100mL/hr - Abdominal CT showed no perforation, no pnuematosis, no obstruction, +ileus, + colitis, possibly ischemic colitis due to fluid loss - On Flagyl 500mg Q8 IV + Zosyn 3.75 Q8 IV to cover for possible infectious component to colitis - Pt transferred to ICU for higher level of care # Anemia - Patient has transfusion dependent anemia, maintained on Epo 1-2x weekly - S/p 1 unit PRBC, Hgb 7.0 --> 7.8 --> 9.5 , No signs of active bleeding at this time # Diarrhea - s/p aggressive bowel regimen - Ordered C.diff panel # Hx of Atrial Fibrillation - with elevated INR - INR 4.78 --> 5.93 --> 8.48 --> 9.42 - Discontinued Tylenol PRN - 1 dose of PO Vitamin K 2.5 mg - Coumadin 4mg held, will check PT/INR tomorrow # S/p mechanical fall R/o bleed - Acute bleed was ruled out with CT scans - PT on Saturday Max 55 ft, inhibited by pain, needs walker on discharge # Mild T12 Compression Fracture - Neurosurgery recommends conservative management, pain control, will reconsider brace - Lidocaine patch + Morphine 1mg IV PRN # HTN - Amlodipine and Sotalol PO will not be given while patient is NPO - Pt on Lopressor 5mg IV push if SBP > 120 # Anxiety - Discontinued home clonazepam 0.25mg PO while patient is NPO #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 - Hx of transfusion dependent anemia, now maintained on Epo 1-2x weekly - Given Epo 40,000 U x1 - Per Oncology, stopped hydroxyurea so as to now lower PLT count - Radiation treatment to be determined by oncology # 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 - Magic mouth wash 15cc S&S daily - Gelclair oral gel packet (patient's own medication) #Allergic Rhinitis - Discontinued home Ranitidine 150mg PO daily while patient is NPO #F/E/N - Fluids: Hold IVF - Electrolytes: Monitor BMP - Diet: Strict NPO # Prophylaxis - DVT: INR is supratherapeutic - GI: Not indicated #Dispo - Transfer to ICU #Code Status -DNR/DNI - Verbal consent and signature obtained today 05/22/17 Visit type - Emergency Visit Emergency Visit: No - New Patient This patient is new to me today: No - Critical Care Critical Care patient: No - Discharge Referral Referred to [facility] No
[2017-05-22 06:58] LABS: PROTHROMBIN TIME (PATIENT) 97.4 SEC (9.98-11.88)
[2017-05-22 07:47] LABS: INR 8.48 (0.82-1.09)
[2017-05-22] MEDS: SODIUM CHLORIDE 1,000 ML IV SCH ×2 (07:54→10:50)
[2017-05-22] MEDS ORDERED: DEXTROSE 5%-WATER 100 ML IVPB ONE (09:09)
[2017-05-22] MEDS: LIDOCAINE 5% TOPICAL PATCH TP SCH (09:12)
[2017-05-22] MEDS: CEFTRIAXONE 2 GM in DEXTROSE 5%-WATER 100 ML IVPB SCH (09:12)
--- NOTE | 2017-05-22 09:26 | PN ---
Teaching Attending Note Name of Resident: Maryse Hung ATTENDING PHYSICIAN STATEMENT I saw and evaluated the patient. I reviewed the resident's note and discussed the case with the resident. I agree with the resident's findings and plan as documented. SUBJECTIVE: Patient is c/o having back pain more than abdominal pain. OBJECTIVE: Vital Signs Temperature 98.2 F 05/22/17 05:30 Pulse Rate 61 05/22/17 05:30 Respiratory Rate 24 05/22/17 05:30 Blood Pressure 114/56 05/22/17 05:30 O2 Sat by Pulse Oximetry (%) 87 L 05/21/17 09:00 CBCD WBC 6.5 K/mm3 (4.0-10.0) 05/22/17 05:45 RBC 3.14 M/mm3 (3.60-5.2) L 05/22/17 05:45 Hgb 7.8 GM/dL (10.7-15.3) L 05/22/17 05:45 Hct 24.5 % (32.4-45.2) L 05/22/17 05:45 MCV 77.8 fl (80-96) L 05/22/17 05:45 MCHC 31.7 g/dl (32.0-36.0) L 05/22/17 05:45 RDW 17.6 % (11.6-15.6) H 05/22/17 05:45 Plt Count 210 K/MM3 (134-434) 05/22/17 05:45 MPV 9.6 fl (7.5-11.1) 05/22/17 05:45 CMP Sodium 131 mmol/L (136-145) L 05/21/17 05:35 Potassium 4.8 mmol/L (3.5-5.1) 05/21/17 05:35 Chloride 94 mmol/L (98-107) L 05/21/17 05:35 Carbon Dioxide 27 mmol/L (21-32) 05/21/17 05:35 Anion Gap 10 (8-16) 05/21/17 05:35 BUN 35 mg/dL (7-18) H D 05/21/17 05:35 Creatinine 1.2 mg/dL (0.55-1.02) H D 05/21/17 05:35 Creat Clearance w eGFR Y 05/21/17 05:35 Random Glucose 100 mg/dL (74-106) 05/21/17 05:35 Calcium 8.2 mg/dL (8.5-10.1) L 05/21/17 05:35 Total Bilirubin 1.3 mg/dL (0.2-1.0) H 05/21/17 05:35 AST 96 U/L (15-37) H D 05/21/17 05:35 ALT 44 U/L (12-78) 05/21/17 05:35 Alkaline Phosphatase 165 U/L (45-117) H D 05/21/17 05:35 Total Protein 5.5 g/dl (6.4-8.2) L 05/21/17 05:35 Albumin 3.0 g/dl (3.4-5.0) L D 05/21/17 05:35 CARDIAC ENZYMES Creatine Kinase 40 IU/L (26-192) 05/16/17 20:18 Troponin I 0.02 ng/ml (0.00-0.05) 05/16/17 20:18 Current Medications Generic Name Dose Route Start Last Admin Trade Name Gaston PRN Reason Stop Dose Admin Amlodipine Besylate 10 mg 05/17/17 10:00 05/21/17 09:00 Norvasc - PO 10 mg DAILY [facility] Administration Cholecalciferol 2,000 unit 05/17/17 10:00 05/21/17 09:00 Vitamin D3 - PO 2,000 unit DAILY [facility] Administration Pantoprazole Sodium 80 mg/ 100 mls @ 10 mls/hr 05/21/17 11:00 05/22/17 07:54 Sodium Chloride IVPB 10 mls/hr Q10H [facility] Administration 8 MG/HR Sodium Chloride 1,000 mls @ 100 mls/hr 05/21/17 10:45 05/22/17 07:54 Normal Saline - IV 100 mls/hr ASDIR [facility] Administration Metronidazole 100 mls @ 100 mls/hr 05/21/17 18:00 05/22/17 01:37 Flagyl 500mg Premixed Ivpb - IVPB 100 mls/hr Q8H-IV [facility] Administration Ceftriaxone Sodium 2 gm/ 100 mls @ 200 mls/hr 05/21/17 20:00 05/22/17 09:12 Dextrose IVPB 200 mls/hr DAILY [facility] Administration Lidocaine 1 patch 05/17/17 10:45 05/22/17 09:12 Lidoderm Patch - TP 1 patch DAILY [facility] Administration Lidocaine/Aluminum/Magnesium/Simeth 15 ml 05/17/17 00:00 05/22/17 06:24 Magic Mouthwash *Sjr Formula* - MM 15 ml Q6HPO [facility] Administration Miscellaneous 1 each 05/17/17 22:00 05/21/17 22:00 Lidoderm Patch Removal MC 1 each DAILY@2200 [facility] Administration Gelclair Oral Gel - 1 each 05/17/17 18:00 05/21/17 09:07 Patient Own Med NR Not Given DAILY [facility] Ranitidine HCl 150 mg 05/17/17 10:00 05/21/17 09:00 Zantac - PO 150 mg DAILY [facility] Administration Sotalol HCl 120 mg 05/17/17 10:00 05/21/17 21:37 Betapace - PO 120 mg BID [facility] Administration Warfarin Sodium 4 mg 05/18/17 18:00 05/20/17 18:18 Coumadin - PO 4 mg DAILY@1800 [facility] Administration Home Medications Medication Instructions Recorded Amlodipine Besylate [Norvasc -] 10 mg PO DAILY #0 tablet 05/13/13 Clonazepam [Klonopin] 0.5 mg PO BID 04/21/14 Hydroxyurea [Hydrea 500Mg Capsule 500 mg PO DAILY 04/21/14 -] Ranitidine [Zantac -] 150 mg PO BID 06/10/15 Sotalol HCl [Sotalol] 80 mg PO TID 06/10/15 Warfarin Na [Coumadin -] 4 mg PO DAILY 06/10/15 Cholecalciferol (Vitamin D3) 2,000 unit PO DAILY 03/22/16 [Vitamin D3] Epoetin Chris [Procrit] 0 unit IJ ASDIR 09/11/16 Cranberry 400 mg PO DAILY 02/21/17 Mag Hydrox/Alh/Smc/Dpha/Lido 15 ml MM Q6HPO #1 mouthwash 05/16/17 [Magic Mouthwash *Sjr Formula* -] Pot Sor/Hy-Ethylcel/Pvp/Hyalur 15 ml MM DAILY #1 gel.packet 05/16/17 [Gelclair Oral Gel Packet] Systane Ultra 0.4-0.3% Eye Drp TID 05/18/17 PE: Abdomen: Involunatry guarding Right lower quadrant. bowel sounds diminished. ASSESSMENT AND PLAN: 86 y/o lady with h/o Lymphoma , on radiation , myelo-proliferative disease , HTN , A fib on coumadin and other medical problems who presented after a mechanical fall. # Acute suspected Colitis on CT scan, patient has diminished bowel sounds with right sided abdominal pain > left side. ON IV Antibiotics Rocephin/Flagyl GI, on the case, Surgery on the case, Will get ID consult for further evaluation. Lactic acid, Cbc, INr ordered. # T12 fracture- will stay away from Tylenol since can elevated INR. Will order Morphine prn. # Supratherapeutic INR- FFP if needed, Vit K po 2.5mg x 1 , will repeat the level of INR and CBC. Discussed with Hem/onc, also deisi get cardiology involve since patient has Afib on Coumadin with Supratherapeutic INR. # NO stools today but as per notes patient had Black stools- concern for upper GI bleed with supratherapeutic INR and black stools in setting of drop in H/H. On IVF, protonix ggt. trend Hgb . Gi consult appreciated. # S/P acute constipation: s/p multiple bowel regimen was given . AXR showing ileus. will repeat Xray and s/p CT abdomen/pelvis with contrast positive for Ileus, # Afib- rate controlled. cont sotatolol DVT ppx- SCD. supratherapeutic INR wii Tx the patient to ICU
[2017-05-22] MEDS: CHOLECALCIFEROL (VITAMIN D3) 1,000 UNIT TABLET (FP) PO SCH (10:49)
[2017-05-22] MEDS: SOTALOL HCL 80 MG TABLET (FP) PO SCH ×3 (10:49→21:09)
[2017-05-22] MEDS: amLODIPine BESYLATE 10 MG TABLET (FP) PO SCH (10:49)
[2017-05-22] MEDS: [UNRECOGNIZED DRUG - OTHER] NR SCH (10:50)
[2017-05-22] MEDS ORDERED: CYCLOBENZAPRINE HCL 10 MG TABLET (FP) PO ONE (11:04)
[2017-05-22 11:46] LABS: ALBUMIN 2.5 g/dl (3.4-5.0); ANION GAP 9 (8-16); CALCIUM 7.5 mg/dL (8.5-10.1); CO2 25 mmol/L (21-32); GLUCOSE,RANDOM 84 mg/dL (74-106); MAGNESIUM 2.2 mg/dL (1.8-2.4)
[2017-05-22 11:51] LABS: ALK PHOS 126 U/L (45-117); BILIRUBIN,TOTAL 0.8 mg/dL (0.2-1.0); CREATININE 0.9 mg/dL (0.55-1.02); PHOSPHOROUS 2.3 mg/dL (2.5-4.9); SGOT/AST 57 U/L (15-37); SGPT/ALT 37 U/L (12-78); TOT PROT 4.8 g/dl (6.4-8.2)
[2017-05-22] MEDS ORDERED: PHYTONADIONE 5 MG TABLET PO ONE (11:59)
--- NOTE | 2017-05-22 12:26 | PN ---
Progress Note (short form) - Note Progress Note: surgery pt seen and examined. full consult dictated. 86 f, coumadin toxic, afib, lymphoma, admitted for fall, t12 fx, and head injury...developed abd pain. Ct shows colitis centered at splenic flexure. No fever and wbc normal. having dark bms. On exam abd is softly distended with 4 quadrant rebound but no guarding. Plan- suspect ischemic colitis. Pt wants full attempt at medical management and may refuse surgery even if no other option because she does not want a bag. Cont iv abx. monitor urine output. check lactic acid level. would give vit k to improve inr as abx will continue to prevent vit k absorption. will follow.
--- NOTE | 2017-05-22 12:57 | PN ---
GI Progress Note Subjective: Patient complains of worsened abdominal pain + Loose BMs INR now 8.48 Received PRBC transfusion Evaluated by surgery today Patient's daughter bedside - Objective Vital Signs: Vital Signs Temperature 99.0 F 05/22/17 09:00 Pulse Rate 63 05/22/17 09:00 Respiratory Rate 20 05/22/17 09:00 Blood Pressure 148/53 05/22/17 09:00 O2 Sat by Pulse Oximetry (%) 87 L 05/21/17 09:00 Constitutional: Calm Eyes: No: Sclera Icterus Cardiovascular: Yes: Regular Rate and Rhythm Respiratory: Yes: Diminished (at bases, poor insp. effort) Gastrointestinal Inspection: Yes: Other (Protubernat abdomen) ...Auscultate: Yes: Hyperactive Bowel Sounds ...Palpate: Yes: Tenderness (Marked TTP left abdomen greater than right, worse than yesterday's exam) ...Percussion: No: Tympanitic Edema: Yes Edema: LLE: Trace, RLE: Trace Labs: CBC, BMP 05/22/17 05:45 05/22/17 05:45 INR, PTT INR 8.48 (0.82-1.09) H* D 05/22/17 05:45 - ....Imaging Cat Scan: Report Reviewed, Image Reviewed Problem List - Problems (1) Ischemic colitis Assessment/Plan: Suspected given acuity of abdominal pain and distrbution of colitis noted on CT scan. ? if constipation precipitated the event Pain has actually worsened and more pronoounced left sided abdominal tenderness Plan is as follows: Transfer to ICU Reverse coaguloapthy in case surgical intervention is needed. Given her worsened clinical picture, this may be a necessary option Strict I's and O's IV Abx, consider adding anaerobic coverage, ID eval Agree with checking lactic acid avoid laxative therapy I had a discussion with Ms. Lai's daughter. I explained that Ms. Lai is in a guarded condition and that worsening of her clinical condition could lead to . She is aware of potential interventions such as surgery. She explained that Ms. Lai was expressing wishes not to have surgery "and would rather ". I explained that she should discuss things further with Ms. Lai, her family and come up with a plan regarding the direction of care ( comfort measures / supportive measures / aggressive measures including surgical intervention) Guarded Condition Code(s): K55.9 - VASCULAR DISORDER OF INTESTINE, UNSPECIFIED
--- NOTE | 2017-05-22 13:18 | PN ---
Progress Note, Physician Chief Complaint: Patient complaining of worsening pain said she would not want to have tubes, she wouldn't want to live that way - Current Medication List Current Medications: Active Medications Amlodipine Besylate (Norvasc -) 10 mg PO DAILY [facility] Last Admin: 05/22/17 10:49 Dose: 10 mg Cholecalciferol (Vitamin D3 -) 2,000 unit PO DAILY [facility] Last Admin: 05/22/17 10:49 Dose: 2,000 unit Pantoprazole Sodium 80 mg/ (Sodium Chloride) 100 mls @ 10 mls/hr IVPB Q10H [facility] PRN Reason: 8 MG/HR Last Admin: 05/22/17 07:54 Dose: 10 mls/hr Sodium Chloride (Normal Saline -) 1,000 mls @ 100 mls/hr IV ASDIR [facility] Last Admin: 05/22/17 10:50 Dose: Not Given Metronidazole (Flagyl 500mg Premixed Ivpb -) 100 mls @ 100 mls/hr IVPB Q8H-IV [facility] Last Admin: 05/22/17 10:49 Dose: 100 mls/hr Ceftriaxone Sodium 2 gm/ (Dextrose) 100 mls @ 200 mls/hr IVPB DAILY [facility] Last Admin: 05/22/17 09:12 Dose: 200 mls/hr Lidocaine (Lidoderm Patch -) 1 patch TP DAILY [facility] Last Admin: 05/22/17 09:12 Dose: 1 patch Lidocaine/Aluminum/Magnesium/Simeth (Magic Mouthwash *Sjr Formula* -) 15 ml MM Q6HPO [facility] Last Admin: 05/22/17 11:43 Dose: 15 ml Miscellaneous (Lidoderm Patch Removal) 1 each MC DAILY@2200 [facility] Last Admin: 05/21/17 22:00 Dose: 1 each Gelclair Oral Gel - (Patient Own Med) 1 each NR DAILY [facility] Last Admin: 05/22/17 10:50 Dose: Not Given Sotalol HCl (Betapace -) 120 mg PO BID [facility] Last Admin: 05/22/17 10:49 Dose: 120 mg - Objective Vital Signs: Vital Signs Temperature 99.0 F 05/22/17 09:00 Pulse Rate 63 05/22/17 09:00 Respiratory Rate 20 05/22/17 09:00 Blood Pressure 148/53 05/22/17 09:00 O2 Sat by Pulse Oximetry (%) 87 L 07/18/17 09:00 Labs: CBC, BMP 05/22/17 05:45 05/22/17 05:45 INR, PTT INR 8.48 (0.82-1.09) H* D 05/22/17 05:45
[2017-05-22] MEDS ORDERED: morphine CARPU-JECT 2 MG/1 ML DISP.SYRIN IVPUSH PRN (13:45)
--- NOTE | 2017-05-22 13:45 | PN ---
Progress Note (short form) - Note Progress Note: Patients seen and examined. Events noted Continues to complain of abdominal pain. Says she did have diarrhea yesterday. General: appears in pain Extremities: No pallor or icterus, no pedal edema. Chest:CTA b/l Abdomen: Rebound tenderness present, no gaurding noted Neuro: Alert, oriented, non-focal. CVS: Normal sinus rhythm, S1, S2, no gallop or murmur. H and N: R parotid mass palpable Current Medications Generic Name Dose Route Start Last Admin Trade Name Freq PRN Reason Stop Dose Admin Amlodipine Besylate 10 mg 05/17/17 10:00 05/22/17 10:49 Norvasc - PO 10 mg DAILY MARGARITA Administration Cholecalciferol 2,000 unit 05/17/17 10:00 05/22/17 10:49 Vitamin D3 - PO 2,000 unit DAILY [facility]ITA Administration Sodium Chloride 1,000 mls @ 100 mls/hr 05/21/17 10:45 05/22/17 10:50 Normal Saline - IV Not Given ASDIR [facility] Metronidazole 100 mls @ 100 mls/hr 05/21/17 18:00 05/22/17 10:49 Flagyl 500mg Premixed Ivpb - IVPB 100 mls/hr Q8H-IV [facility] Administration Ceftriaxone Sodium 2 gm/ 100 mls @ 200 mls/hr 05/21/17 20:00 05/22/17 09:12 Dextrose IVPB 200 mls/hr DAILY [facility] Administration Pantoprazole Sodium 40 mg/ 100 mls @ 200 mls/hr 05/23/17 10:00 Sodium Chloride IVPB DAILY [facility] Lidocaine 1 patch 05/17/17 10:45 05/22/17 09:12 Lidoderm Patch - TP 1 patch DAILY [facility] Administration Lidocaine/Aluminum/Magnesium/Simeth 15 ml 05/17/17 00:00 05/22/17 11:43 Magic Mouthwash *Sjr Formula* - MM 15 ml Q6HPO [facility]ITA Administration Miscellaneous 1 each 05/17/17 22:00 05/21/17 22:00 Lidoderm Patch Removal MC 1 each DAILY@2200 M[facility] Administration Gelclair Oral Gel - 1 each 05/17/17 18:00 05/22/17 10:50 Patient Own Med NR Not Given DAILY [facility] Sotalol HCl 120 mg 05/17/17 10:00 05/22/17 10:49 Betapace - PO 120 mg BID MARGARITA Administration Last Vital Signs Temp Pulse Resp BP Pulse Ox 99.0 F 63 20 148/53 96 05/22/17 09:00 05/22/17 09:00 05/22/17 09:00 05/22/17 09:00 05/22/17 09:00 Abnormal Lab Results 05/21/17 05/21/17 05/21/17 05:35 14:20 14:20 WBC 10.6 H RBC 2.91 L Hgb 7.0 L Hct 22.3 L MCV 76.5 L MCH 23.9 L MCHC 31.2 L RDW 18.5 H Neutrophils % Lymphocytes % 4.0 L D Monocytes % 11.0 H D Band Neutrophils 15.0 H INR Sodium 131 L Chloride 94 L BUN 35 H D Creatinine 1.2 H D Calcium 8.2 L Phosphorus Total Bilirubin 1.3 H AST 96 H D Alkaline Phosphatase 165 H D Total Protein 5.5 L Albumin 3.0 L D Crossmatch See Detail 05/22/17 05/22/17 05/22/17 00:45 05:45 05:45 WBC RBC 3.07 L 3.14 L Hgb 7.6 L 7.8 L Hct 23.8 L 24.5 L MCV 77.7 L 77.8 L MCH 24.9 L 24.7 L MCHC 31.7 L RDW 17.8 H 17.6 H Neutrophils % 84.4 H D Lymphocytes % 3.7 L Monocytes % 11.2 H Band Neutrophils INR 8.48 H* D Sodium Chloride BUN Creatinine Calcium Phosphorus Total Bilirubin AST Alkaline Phosphatase Total Protein Albumin Crossmatch 05/22/17 05:45 WBC RBC Hgb Hct MCV MCH MCHC RDW Neutrophils % Lymphocytes % Monocytes % Band Neutrophils INR Sodium 132 L Chloride BUN 32 H Creatinine Calcium 7.5 L Phosphorus 2.3 L D Total Bilirubin AST 57 H D Alkaline Phosphatase 126 H D Total Protein 4.8 L Albumin 2.5 L Crossmatch Assessment/Plan: New abdominal pain: -CT with colitis -lactate -seen by GI and Surgery -IVF -IV abx ( on ceftriaxone and flagyl) -white count down trended -recommend stool for C diff. Coagulopathy: -in the setting of coumadin/illness/abx -continue to hold coumadin. -we recommend giving SQ Vit K 2.5mg ( in the setting ileus/Colitis , ? 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 Rad Onc consult appreciated h/o Ar ET -received procrit on 05/18/2017 Iron overload: -to be monitored, presently on no treatment Back pain from Compression fracture: -seen by Neurosurgery -conservative management Will follow closely
[2017-05-22] MEDS ORDERED: morphine CARPU-JECT 2 MG/1 ML DISP.SYRIN IVPUSH ONE (14:00)
--- NOTE | 2017-05-22 14:22 | PN ---
Progress Note (short form) - Note Progress Note: ID consult dictated imp/reccd 86 year old female recieivng RT for MALT lymphoma of the right parotid, admitted 7 s/p mechanical fall at home, no syncope she was found to have a t12 compression fraction, she developed constipation and then abdominal pain pain has been increasing in severity no fevers, leukocytosis noted yesterday ct scan with colitis she had diarrhea as well yesterday which is resolving no recent outpt antibiotics possible ischemic colitis c diff ordered as well (not sent yet) started on ceftriaxone and flagyl yesterday abdominal exam noted for decreased BS, diffuse tenderness and rebound axray pending colitis- suspected ischemic collitis stools for cdiff as well started on rocephin/flagyl yesterday has been seen by surgery and GI for transfer to ICU advanced directives being addressed send blood cultures/stool cdiff zosyn/flagyl IVF overall prognosis guarded
[2017-05-22] MEDS ORDERED: METOPROLOL TARTRATE 5 MG/5 ML VIAL IVPUSH PRN (14:52)
[2017-05-22 15:20] LABS: MCH 25.3 pg (25.7-33.7); MCHC 32.3 g/dl (32.0-36.0); MEAN CELL VOLUME 78.5 fl (80-96); MEAN PLT VOLUME 9.6 fl (7.5-11.1); PLATELET COUNT 284 K/MM3 (134-434); RDW 17.9 % (11.6-15.6); WHITE BLOOD COUNT 7.9 K/mm3 (4.0-10.0)
--- NOTE | 2017-05-22 15:25 | PN ---
Teaching Attending Note Name of Resident: Yann Woods ATTENDING PHYSICIAN STATEMENT I saw and evaluated the patient. I reviewed the resident's note and discussed the case with the resident. I agree with the resident's findings and plan as documented. SUBJECTIVE: Pt seen and examined in the ICU. Briefly, 86yo female with h/o HTN, atrial fibrillation, GERD, Tucker's thyroiditis, anxiety, myeloproliferative disorder receiving regular transfusions, lymphoma on RT who was initially admitted due to a mechanical fall, found to have a T12 compression fracture. On 05/20, developed acute onset of severe abdominal pain. Evaluated by surgery and GI, suspect ischemic colitis with rebound tenderness on exam, transferred to the ICU for further monitoring. OBJECTIVE: Last Vital Signs Temp Pulse Resp BP Pulse Ox 98.1 F 57 L 17 138/54 96 05/22/17 14:00 05/22/17 14:00 05/22/17 14:00 05/22/17 14:00 05/22/17 09:00 Intake & Output 05/19/17 05/20/17 05/21/17 05/22/17 23:59 23:59 23:59 23:59 Intake Total 400 1468 970 Output Total 2000 Balance 400 1468 -1030 Gen: NAD if not moved, uncomfortable with minimal movement Heart: RRR Lung: decreased breath sounds at the bases Abd: softly distended, +diffuse tenderness to palpation, +guarding, +rebound Ext: no edema CBC, BMP 05/22/17 05:45 05/22/17 05:45 Active Medications Amlodipine Besylate (Norvasc -) 10 mg PO DAILY [facility] Last Admin: 05/22/17 10:49 Dose: 10 mg Cholecalciferol (Vitamin D3 -) 2,000 unit PO DAILY [facility] Last Admin: 05/22/17 10:49 Dose: 2,000 unit Sodium Chloride (Normal Saline -) 1,000 mls @ 100 mls/hr IV ASDIR [facility] Last Admin: 05/22/17 10:50 Dose: Not Given Metronidazole (Flagyl 500mg Premixed Ivpb -) 100 mls @ 100 mls/hr IVPB Q8H-IV [facility] Last Admin: 05/22/17 10:49 Dose: 100 mls/hr Pantoprazole Sodium 40 mg/ (Sodium Chloride) 100 mls @ 200 mls/hr IVPB DAILY [facility] Piperacillin Sod/Tazobactam (Sod 3.375 gm/ Dextrose) 50 mls @ 100 mls/hr IVPB Q8H [facility] Lidocaine (Lidoderm Patch -) 1 patch TP DAILY [facility] Last Admin: 05/22/17 09:12 Dose: 1 patch Lidocaine/Aluminum/Magnesium/Simeth (Magic Mouthwash *Sjr Formula* -) 15 ml MM Q6HPO [facility] Last Admin: 05/22/17 11:43 Dose: 15 ml Metoprolol Tartrate (Lopressor Injection -) 5 mg IVPUSH Q15M PRN PRN Reason: HYPERTENSION Miscellaneous (Lidoderm Patch Removal) 1 each MC DAILY@2200 [facility] Last Admin: 05/21/17 22:00 Dose: 1 each Morphine Sulfate (Morphine Injection -) 1 mg IVPUSH Q4H PRN PRN Reason: PAIN Gelclair Oral Gel - (Patient Own Med) 1 each NR DAILY [facility] Last Admin: 05/22/17 10:50 Dose: Not Given Sotalol HCl (Betapace -) 120 mg PO BID [facility] Last Admin: 05/22/17 10:49 Dose: 120 mg ASSESSMENT AND PLAN: Acute Abdomen Suspected Ischemic Colitis Atrial Fibrillation Myeloproliferative Disorder Anemia Lymphoma HTN GERD - continue antibiotics - IVF - trend lactate - pain control - GI, surgery f/u - NPO - discussed with pt possibility of surgery and she stated that she would not want surgery at this point and that if she clinically deteriorates to make her comfort care with pain control the priority - rate control - target anticoagulation to INR 2-3, will need reversal if pt changes mind about surgery - pt DNR/DNI - guarded prognosis critical care time spent in reviewing chart, evaluating patient and formulating plan 35 min
--- NOTE | 2017-05-22 15:27 | CONSULT ---
Consultation: REQUESTING PROVIDER: CONSULT REQUEST: We have been asked to medically evaluate this patient for acute abdominal pain and elevated INR. HISTORY OF PRESENT ILLNESS: This is an 86yo female with h/o HTN, atrial fibrillation, GERD, myeloproliferative disorder receiving regular transfusions, lymphoma on RT who was initially admitted due to a mechanical fall. During her admission, she was found to have a T12 compression fracture. On 05/20, developed acute onset of severe abdominal pain. Evaluated by surgery and GI, who suspect ischemic colitis. Her INR was also found to be elevated and she was transferred to the ICU for further monitoring. REVIEW OF SYSTEMS: CONSTITUTIONAL: Absent: fever, chills, diaphoresis, generalized weakness, malaise, loss of appetite, weight change HEENT: Absent: rhinorrhea, nasal congestion, throat pain, throat swelling, difficulty swallowing, mouth swelling, ear pain, eye pain, visual changes CARDIOVASCULAR: Absent: chest pain, syncope, palpitations, irregular heart rate, lightheadedness , peripheral edema RESPIRATORY: Absent: cough, shortness of breath, dyspnea with exertion, orthopnea, wheezing, stridor, hemoptysis GASTROINTESTINAL: Pt complains of abdominal pain in the lower quadrants with constipation Absent: abdominal distension, nausea, vomiting, diarrhea GENITOURINARY: Absent: dysuria, frequency, urgency, hesitancy, hematuria, flank pain, genital pain NEUROLOGIC: Absent: headache, focal weakness or paresthesias, dizziness, unsteady gait, seizure, mental status changes, bladder or bowel incontinence PHYSICAL EXAMINATION Vital Signs - 24 hr 05/21/17 05/21/17 05/21/17 18:00 21:00 22:00 Temperature 99.7 F H 99.2 F Pulse Rate 67 68 Respiratory 19 20 20 Rate Blood Pressure 137/61 115/42 O2 Sat by Pulse Oximetry (%) 05/22/17 05/22/17 05/22/17 02:00 05:30 09:00 Temperature 98.3 F 98.2 F 99.0 F Pulse Rate 61 63 Respiratory 24 20 Rate Blood Pressure 114/56 148/53 O2 Sat by Pulse 96 Oximetry (%) 05/22/17 14:00 Temperature 98.1 F Pulse Rate 57 L Respiratory 17 Rate Blood Pressure 138/54 O2 Sat by Pulse Oximetry (%) GENERAL: Awake, alert, and fully oriented, in moderate distress. HEAD: Normal with no signs of trauma. EYES: round and reactive to light, extraocular movements intact, sclera anicteric, conjunctiva clear. No lid lag. NECK: Normal range of motion, no JVD. LUNGS: Breath sounds equal, clear to auscultation bilaterally. No wheezes, and no crackles. No accessory muscle use. HEART: irregularly irregular rate and rhythm, normal S1 and S2 without murmur, rub or gallop. ABDOMEN: Soft, exquisitely tender to palpation in the lower quadrants with rebound, not distended, normoactive bowel sounds, no guarding. NEUROLOGICAL: Cranial nerves II-X intact. Normal speech. gait not observed. PSYCHIATRIC: Cooperative. Good eye contact. Appropriate mood and affect. SKIN: Warm, dry, normal turgor, no rashes or lesions noted. Laboratory Results - last 24 hr 05/21/17 05/21/17 05/22/17 14:20 14:20 00:45 WBC 10.6 H 6.7 D RBC 2.91 L 3.07 L Hgb 7.0 L 7.6 L Hct 22.3 L 23.8 L MCV 76.5 L 77.7 L MCH 23.9 L 24.9 L MCHC 31.2 L 32.1 RDW 18.5 H 17.8 H Plt Count 233 199 MPV 9.4 9.9 Neutrophils % 68.0 Lymphocytes % 4.0 L D Monocytes % 11.0 H D Eosinophils % Computer Teacher Basophils % Computer Teacher Band Neutrophils 15.0 H Metamyelocytes 1 Myelocytes 1 Anisocytosis 1+ Microcytosis 1+ INR Sodium Potassium Chloride Carbon Dioxide Anion Gap BUN Creatinine Creat Clearance w eGFR Random Glucose Lactic Acid Calcium Phosphorus Magnesium Total Bilirubin AST ALT Alkaline Phosphatase Total Protein Albumin Blood Type AB POSITIVE Antibody Screen Negative Crossmatch See Detail 05/22/17 05/22/17 05/22/17 05:45 05:45 05:45 WBC 6.5 RBC 3.14 L Hgb 7.8 L Hct 24.5 L MCV 77.8 L MCH 24.7 L MCHC 31.7 L RDW 17.6 H Plt Count 210 MPV 9.6 Neutrophils % 84.4 H D Lymphocytes % 3.7 L Monocytes % 11.2 H Eosinophils % 0.3 D Basophils % 0.4 Band Neutrophils Metamyelocytes Myelocytes Anisocytosis Microcytosis INR 8.48 H* D Sodium 132 L Potassium 3.8 D Chloride 98 Carbon Dioxide 25 Anion Gap 9 BUN 32 H Creatinine 0.9 D Creat Clearance w eGFR 59.51 Random Glucose 84 Lactic Acid Calcium 7.5 L Phosphorus 2.3 L D Magnesium 2.2 Total Bilirubin 0.8 D AST 57 H D ALT 37 Alkaline Phosphatase 126 H D Total Protein 4.8 L Albumin 2.5 L Blood Type Antibody Screen Crossmatch 05/22/17 12:10 WBC RBC Hgb Hct MCV MCH MCHC RDW Plt Count MPV Neutrophils % Lymphocytes % Monocytes % Eosinophils % Basophils % Band Neutrophils Metamyelocytes Myelocytes Anisocytosis Microcytosis INR Sodium Potassium Chloride Carbon Dioxide Anion Gap BUN Creatinine Creat Clearance w eGFR Random Glucose Lactic Acid 0.9 Calcium Phosphorus Magnesium Total Bilirubin AST ALT Alkaline Phosphatase Total Protein Albumin Blood Type Antibody Screen Crossmatch Active Medications Generic Name Dose Route Start Last Admin Trade Name Freq PRN Reason Stop Dose Admin Amlodipine Besylate 10 mg 05/17/17 10:00 05/22/17 10:49 Norvasc - PO 10 mg DAILY MARGARITA Administration Cholecalciferol 2,000 unit 05/17/17 10:00 05/22/17 10:49 Vitamin D3 - PO 2,000 unit DAILY MARGARITA Administration Sodium Chloride 1,000 mls @ 100 mls/hr 05/21/17 10:45 05/22/17 10:50 Normal Saline - IV Not Given ASDIR MARGARITA Metronidazole 100 mls @ 100 mls/hr 05/21/17 18:00 05/22/17 10:49 Flagyl 500mg Premixed Ivpb - IVPB 100 mls/hr Q8H-IV MARGARITA Administration Pantoprazole Sodium 40 mg/ 100 mls @ 200 mls/hr 05/23/17 10:00 Sodium Chloride IVPB DAILY MARGARITA Piperacillin Sod/Tazobactam 50 mls @ 100 mls/hr 05/22/17 18:00 Sod 3.375 gm/ Dextrose IVPB Q8H MARGARITA Lidocaine 1 patch 05/17/17 10:45 05/22/17 09:12 Lidoderm Patch - TP 1 patch DAILY MARGARITA Administration Lidocaine/Aluminum/Magnesium/Simeth 15 ml 05/17/17 00:00 05/22/17 11:43 Magic Mouthwash *Sjr Formula* - MM 15 ml Q6HPO MARGARITA Administration Metoprolol Tartrate 5 mg 05/22/17 14:52 Lopressor Injection - IVPUSH Q15M PRN HYPERTENSION Miscellaneous 1 each 05/17/17 22:00 05/21/17 22:00 Lidoderm Patch Removal MC 1 each DAILY@2200 MARGARITA Administration Morphine Sulfate 1 mg 05/22/17 13:45 Morphine Injection - IVPUSH Q4H PRN PAIN Gelclair Oral Gel - 1 each 05/17/17 18:00 05/22/17 10:50 Patient Own Med NR Not Given DAILY [facility] Sotalol HCl 120 mg 05/17/17 10:00 05/22/17 10:49 Betapace - PO 120 mg BID MARGARITA Administration ASSESSMENT/PLAN: Neuro: -alert and oriented, in distress due to pain -pain control, morphine 2mg IVpush Cardio: -PMH afib on anticoagulation -hold coumadin 2/2 elevated INR -rate control w/ lopressor -monitor BP and HR Abdominal: -suspected mesenteric ischemia -F/U GI and surgery recommendations; patient states she does not want surgery at this time. -c/w piperacilin/tazobactam 3.375 gm Q8 and flagyl 500mg Q8 -trend lactate Hematologic: -INR supratheraputic at 9.4 today -s/p PO Vit K on the floors -Continue to monitor INR (goal 2-3) FEN: -NS @ 100 -no electrolyte abnormalities -NPO Dispo: We will continue to follow the patient. Thank you for this consultative opportunity. Problem List - Problems (1) Abdominal pain Code(s): R10.9 - UNSPECIFIED ABDOMINAL PAIN (2) GERD (gastroesophageal reflux disease) Code(s): K21.9 - GASTRO-ESOPHAGEAL REFLUX DISEASE WITHOUT ESOPHAGITIS (3) History of Coumadin therapy Code(s): Z79.01 - THORACIC MEDICINE PHYSICIAN (CURRENT) USE OF 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 (4) Hypertension Code(s): I10 - ESSENTIAL (PRIMARY) HYPERTENSION (5) Ischemic colitis Code(s): K55.9 - VASCULAR DISORDER OF INTESTINE, UNSPECIFIED (6) Paroxysmal a-fib Code(s): I48.0 - PAROXYSMAL ATRIAL FIBRILLATION (7) Supratherapeutic INR Code(s): R79.1 - ABNORMAL COAGULATION PROFILE (8) Acute abdomen Code(s): R10.0 - ACUTE ABDOMEN (9) 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 - New Patient This patient is new to me today: Yes Date on this admission: 05/22/17 - Critical Care Critical Care patient: Yes Total Critical Care Time (in minutes): 45 Critical Care Statement: The care of this patient involved high complexity decision making to prevent further life threatening deterioration of the patient 's condition and/or to evalute & treat vital organ system(s) failure or risk of failure.
[2017-05-22 15:46] LABS: PROTHROMBIN TIME (PATIENT) 108.5 SEC (9.98-11.88)
[2017-05-22 15:48] LABS: INR 9.42 (0.82-1.09)
[2017-05-22 15:55] LABS: TROPONIN I 0.02 ng/ml (0.00-0.05)
[2017-05-22] MEDS ORDERED: PIPERACILLIN/TAZOB 3.375 GM/50 ML PRE-DOCKED IVPB SCH (18:00)
[2017-05-22] MEDS ORDERED: PIPERACILLIN/TAZOB 3.375 GM 3.375 GM in DEXTROSE 5%-WATER - 50 ML IVPB SCH (18:00)
[2017-05-22] MEDS ORDERED: PIPERACILLIN/TAZOB 3.375 GM 50 ML IVPB SCH (18:18)
[2017-05-22 19:15] LABS: ALBUMIN 2.7 g/dl (3.4-5.0); ANION GAP 10 (8-16); BILIRUBIN,TOTAL 0.5 mg/dL (0.2-1.0); CALCIUM 8.1 mg/dL (8.5-10.1); CO2 24 mmol/L (21-32); CREATININE 0.9 mg/dL (0.55-1.02); GLUCOSE,RANDOM 94 mg/dL (74-106); SGOT/AST 57 U/L (15-37); SGPT/ALT 39 U/L (12-78); TOT PROT 5.3 g/dl (6.4-8.2)
[2017-05-22 19:16] LABS: ALK PHOS 130 U/L (45-117)
[2017-05-22] MEDS ORDERED: HYDROmorphone HCL CARPU-JECT 1 MG/1 ML DISP.SYRIN IVPUSH PRN ×2 (20:40→21:36)
--- NOTE | 2017-05-22 21:01 | CONS ---
DATE OF CONSULTATION: 05/22/2017 REASON FOR CONSULTATION: Abdominal pain. REQUESTING PHYSICIAN: Abe Eaton D.O. REASON FOR CONSULTATION: This is an inpatient consultation. BRIEF HISTORY: This is an 86-year-old female with multiple medical problems who presented to [facility] after falling and hitting her head. She was on Coumadin for atrial fibrillation and has Coumadin toxicity. She was noted to not have an intracranial bleed but was noted to have a T12 fracture and has a history of lymphoma with radiation treatment. She was admitted to the hospital and then later developed abdominal pain after being treated for significant constipation with laxatives. After good results from laxatives, her pain worsened, and she went for a CAT scan of her abdomen and pelvis which was consistent with a colitis involving the distal transverse colon, splenic flexure, and proximal ascending colon. Request was made for surgical evaluation. The patient has been afebrile with normal vital signs. However, her systolic blood pressure did get as low as 113 yesterday morning. Today it is 148/53. She also had a mildly elevated white blood cell count yesterday that has returned to normal today after antibiotics were initiated. She admits to dark stool and passing gas. She states that the pain is worse today than it was yesterday. She denies nausea or vomiting. PAST MEDICAL HISTORY: Significant for atrial fibrillation, hypertension, thyroiditis, gastroesophageal reflux disease, anxiety, and lymphoma. PAST SURGICAL HISTORY: Includes an appendectomy as a child. SOCIAL HISTORY: Negative for alcohol. Negative for tobacco. FAMILY HISTORY: Noncontributory. ALLERGIES: DARVOCET as well as ASPIRIN. HOME MEDICATIONS: Include Norvasc, Klonopin, hydroxyurea, Zantac, sotalol, and Coumadin. REVIEW OF SYSTEMS: General: Denies fatigue or malaise. Cardiac: Denies chest pain or palpitations. Respiratory: Denies shortness of breath, wheeze. Gastrointestinal: As stated in HPI. Genitourinary: Denies dysuria. Musculoskeletal: Admits to back pain. Psychiatric: Admits to anxiety. PHYSICAL EXAMINATION: General: This is a thin 86-year-old female in no distress. Vital signs: Currently stable. HEENT: Head is normocephalic. Sclerae anicteric. Neck: Supple. Chest: Clear. Abdomen: Soft. It is mildly distended. She has a well healed appendix scar in the right lower quadrant. She has rebound in all 4 quadrants, and the patient appears to be somewhat histrionic. Most of her tenderness however is centered in the left upper quadrant. She has no obvious hernias. Extremities: Edema. LABORATORY: On review of her laboratory, her white blood cell count is 6.5 with a shift of 84%. It was 11.8 yesterday. Her coagulation profile shows an INR of 8.48. Her chemistries show an albumin of 2.5, and her carbon dioxide level was normal at 25. Her urine output has not been recorded. IMAGING: As in HPI. ASSESSMENT: An 86-year-old female who developed constipation followed by severe abdominal pain. CAT scan findings are suggestive of a colitis, most likely this is ischemic colitis located in the watershed area of the splenic flexure. This is likely secondary to the fecal load causing pressure and decreased venous return versus from a mild hypotensive episode. At this point, the patient does not want surgery. She wants every effort at medical management, plus surgery would require colostomy. She also states that even if surgery were needed to save her life, she may decline it. At this point, I agree with antibiotics. Rocephin and Flagyl should cover E. coli and other enteric as well as gram-negative related chai. Continue to optimize her blood pressure. Would recommend recording her urine output to ensure that she has adequate perfusion to her kidneys, which would be a marker for likely good blood flow to her colon. Recommend checking a lactic acid level to ensure that there is no rising levels of ischemia. At this point, despite the patient's tenderness and rebound, I do not believe that she has complete compromise of a segment of her colon and would continue with medical management. If she deteriorates, which would be manifested by worsening fever, tachycardia, hypotension, or rising lactic acid, at that point she may require emergency surgery if she is agreeable. I would also recommend addressing the rising INR and suspect the patient will require some vitamin K as the antibiotics will prevent her colon chai from aiding absorption of vitamin K. Obviously if the patient did require surgery, her INR would need to be reversed to at least 1.8 or lower. DO SALIMA RIDDLE/[id number]
[2017-05-22] MEDS: PIPERACILLIN/TAZOB 3.375 GM 50 ML IVPB SCH (21:02)
[2017-05-22] MEDS: LIDOCAINE PATCH REMOVAL MC SCH (21:04)
[2017-05-22 22:04] LABS: PROTHROMBIN TIME (PATIENT) 50.8 SEC (9.98-11.88)
[2017-05-22 22:06] LABS: INR 4.48 (0.82-1.09)
[2017-05-22] MEDS ORDERED: LORazepam 1 MG TABLET PO ONE (23:08)
[2017-05-23] MEDS: METRONIDAZOLE 500 MG PREMIXED 100 ML IVPB SCH ×3 (02:20→18:04)
[2017-05-23] MEDS: PIPERACILLIN/TAZOB 3.375 GM 50 ML IVPB SCH ×3 (03:20→17:22)
[2017-05-23 06:11] LABS: MCH 25.1 pg (25.7-33.7); MCHC 32.1 g/dl (32.0-36.0); MEAN CELL VOLUME 78.2 fl (80-96); MEAN PLT VOLUME 9.6 fl (7.5-11.1); PLATELET COUNT 219 K/MM3 (134-434); RDW 18.5 % (11.6-15.6); WHITE BLOOD COUNT 6.1 K/mm3 (4.0-10.0)
[2017-05-23] MEDS: MAG HYDROX/ALH/SMC/DPHA/LIDO 240 ML MOUTHWASH MM SCH ×4 (06:20→17:22)
[2017-05-23 06:24] LABS: INR 2.31 (0.82-1.09); PROTHROMBIN TIME (PATIENT) 25.8 SEC (9.98-11.88)
[2017-05-23 06:36] LABS: ANION GAP 10 (8-16); CALCIUM 7.5 mg/dL (8.5-10.1); CO2 23 mmol/L (21-32); CREATININE 0.8 mg/dL (0.55-1.02); GLUCOSE,RANDOM 83 mg/dL (74-106)
--- NOTE | 2017-05-23 07:36 | PN ---
Progress Note, Physician Chief Complaint: ID Current antibiotics Pip Tazobactam and metrondidazole Some complaints related to side effects analgesics and problems sleeping then notes her abd still painful and had to ask last night for pain meds. She remains afebrile - Current Medication List Current Medications: Active Medications Amlodipine Besylate (Norvasc -) 10 mg PO DAILY [facility] Last Admin: 05/22/17 10:49 Dose: 10 mg Cholecalciferol (Vitamin D3 -) 2,000 unit PO DAILY [facility] Last Admin: 05/22/17 10:49 Dose: 2,000 unit Hydromorphone HCl (Dilaudid Injection -) 1 mg IVPUSH Q6H PRN PRN Reason: PAIN Last Admin: 05/22/17 21:01 Dose: 1 mg Hydromorphone HCl (Dilaudid Injection -) 0.5 mg IVPUSH Q6H PRN PRN Reason: Pain 4-6 Sodium Chloride (Normal Saline -) 1,000 mls @ 100 mls/hr IV ASDIR [facility] Last Admin: 05/22/17 10:50 Dose: Not Given Metronidazole (Flagyl 500mg Premixed Ivpb -) 100 mls @ 100 mls/hr IVPB Q8H-IV [facility] Last Admin: 05/23/17 02:20 Dose: 100 mls/hr Pantoprazole Sodium 40 mg/ (Sodium Chloride) 100 mls @ 200 mls/hr IVPB DAILY [facility] Piperacillin Sod/Tazobactam Sod (Zosyn 3.375gm Ivpb (Pre-Docked)) 50 mls @ 100 mls/hr IVPB Q8H-IV [facility] Last Admin: 05/23/17 03:20 Dose: 100 mls/hr Lidocaine (Lidoderm Patch -) 1 patch TP DAILY [facility] Last Admin: 05/22/17 09:12 Dose: 1 patch Lidocaine/Aluminum/Magnesium/Simeth (Magic Mouthwash *Sjr Formula* -) 15 ml MM Q6HPO [facility] Last Admin: 05/23/17 06:20 Dose: 15 ml Metoprolol Tartrate (Lopressor Injection -) 5 mg IVPUSH Q15M PRN PRN Reason: HYPERTENSION Miscellaneous (Lidoderm Patch Removal) 1 each MC DAILY@2200 [facility] Last Admin: 05/22/17 21:04 Dose: 1 each Gelclair Oral Gel - (Patient Own Med) 1 each NR DAILY [facility] Last Admin: 05/22/17 10:50 Dose: Not Given Sotalol HCl (Betapace -) 120 mg PO BID [facility] Last Admin: 05/22/17 21:09 Dose: Not Given - Objective Vital Signs: Vital Signs Temperature 98.4 F 05/23/17 06:14 Pulse Rate 50 L 05/23/17 06:14 Respiratory Rate 18 05/23/17 06:14 Blood Pressure 133/56 05/23/17 06:14 O2 Sat by Pulse Oximetry (%) 96 05/22/17 21:00 Constitutional: Yes: No Distress, Other ([place] of hearing) Neck: Yes: WNL, Supple Cardiovascular: Yes: Pulse Irregular, S1, S2. No: Murmur Respiratory: Yes: WNL, Regular, CTA Bilaterally. No: Rales, Rhonchi, Wheezes Gastrointestinal: Yes: Soft, Tenderness, Tenderness, Rebound Extremities: No: Cold, Cool, Cyanosis Edema: No Neurological: Yes: WNL, Alert, Oriented, Cran Nerves II-XII Intact Labs: CBC, BMP 05/23/17 05:05 05/23/17 05:05 INR, PTT INR 2.31 (0.82-1.09) H D 05/23/17 05:05 Problem List - Problems (1) Myeloproliferative disease Code(s): D47.1 - CHRONIC MYELOPROLIFERATIVE DISEASE (2) Ischemic colitis, enteritis, or enterocolitis Code(s): K55.9 - VASCULAR DISORDER OF INTESTINE, UNSPECIFIED (3) Peritonitis Code(s): K65.9 - PERITONITIS, UNSPECIFIED (4) Compression fracture of lumbar vertebra Code(s): S32.000A - WEDGE COMPRESSION FRACTURE OF UNSP LUMBAR VERTEBRA, INIT Qualifiers: Encounter type: initial encounter Fracture type: closed Qualified Code(s): S32.000A - Wedge compression fracture of unspecified lumbar vertebra, initial encounter for closed fracture Assessment/Plan Microbiology Laboratory Tests 05/22/17 05/22/17 05/22/17 13:57 18:45 21:00 WBC Hgb Hct Plt Count INR 4.48 H* D BUN Creatinine Lactic Acid 1.1 Total Bilirubin 0.5 D Alkaline Phosphatase 130 H 05/23/17 05/23/17 05/23/17 05:05 05:05 05:05 WBC 6.1 Hgb 8.1 L D Hct 25.3 L Plt Count 219 D INR 2.31 H D BUN 28 H Creatinine 0.8 Lactic Acid Total Bilirubin Alkaline Phosphatase Blood cultures pending Assessment Ischemic colitis Assume translocation of bacteria from bowel with peritonitis with rebound tenderness Myeloproliferative disorder Coaguloapthy gradually correcting Atrial fibrillation Compression fracture ( back pain) Plan Continue current therapy Surgical note reviewed regarding plan medical management CRP ESR BLood cultures pending Discussed wit her daughter and house staff Critical care time spent YES 38 minutes this am Rosa PIERSON
[2017-05-23] MEDS ORDERED: SODIUM CHLORIDE 1,000 ML IV SCH (07:40)
[2017-05-23] MEDS ORDERED: LIDOCAINE PATCH REMOVAL MC SCH ×2 (07:40→22:00)
--- NOTE | 2017-05-23 08:19 | PN ---
Physical Exam: SUBJECTIVE: 86 year old female with a past medical history of hypertension, atrial fibrillation, GERD, myeloproliferative disease with frequent transfusions, and lymphoma on radiation therapy was admitted to the hospital s/p fall with a T12 compression fracture. On 05/20, the patient developed an acutely onset abdominal pain suspect for ischemic colitis. Her INR was discovered to be 9.4, and she was transferred to the ICU. The presumptive diagnosis was explained to the patient, who refused surgery and agreed to DNR/DNI and medical management. Last night, she was given dilaudid Q6 PRN pain. Today she feels better. She states that her abdominal pain is now a constant, diffuse, uneasy feeling, but improved compared to what it was yesterday. She continues to have back pain related to the fracture. OBJECTIVE: Vital Signs Period Temp Pulse Resp BP Sys/Conde Pulse Ox Last 24 Hr 98 F-99.0 F 43-63 14-22 108-148/39-56 96-96 GENERAL: The patient is awake, alert, and fully oriented, in no acute distress. HEAD: Normal with no signs of trauma. EYES: PERRL, extraocular movements intact, sclera anicteric, conjunctiva clear. No ptosis. ENT: Ears normal, nares patent, oropharynx clear without exudates, moist mucous membranes, hard of hearing without aids NECK: Trachea midline, full range of motion, supple. LUNGS: Breath sounds equal, clear to auscultation bilaterally, no wheezes, no crackles, no accessory muscle use. HEART: Regular rate and rhythm, S1, S2 without murmur, rub or gallop. ABDOMEN: Soft, diffuse tenderness with rebound noted, nondistended, normoactive bowel sounds, no hepatosplenomegaly, no masses. EXTREMITIES: 2+ pulses, warm, well-perfused, no edema. NEUROLOGICAL: Cranial nerves II through XII grossly intact. Normal speech, gait not observed. PSYCH: Normal mood, normal affect. SKIN: Warm, dry, normal turgor, no rashes or lesions noted CBC, BMP 05/23/17 05:05 05/23/17 05:05 CMP Sodium 138 mmol/L (136-145) 05/23/17 05:05 Potassium 3.7 mmol/L (3.5-5.1) 05/23/17 05:05 Chloride 105 mmol/L (98-107) 05/23/17 05:05 Carbon Dioxide 23 mmol/L (21-32) 05/23/17 05:05 Anion Gap 10 (8-16) 05/23/17 05:05 BUN 28 mg/dL (7-18) H 05/23/17 05:05 Creatinine 0.8 mg/dL (0.55-1.02) 05/23/17 05:05 Creat Clearance w eGFR 59.51 (>60) 05/22/17 18:45 Random Glucose 83 mg/dL (74-106) 05/23/17 05:05 Lactic Acid 1.1 mmol/L (0.4-2.0) 05/22/17 13:57 Calcium 7.5 mg/dL (8.5-10.1) L 05/23/17 05:05 Phosphorus 2.3 mg/dL (2.5-4.9) L D 05/22/17 05:45 Magnesium 2.2 mg/dL (1.8-2.4) 05/22/17 05:45 Total Bilirubin 0.5 mg/dL (0.2-1.0) D 05/22/17 18:45 AST 57 U/L (15-37) H 05/22/17 18:45 ALT 39 U/L (12-78) 05/22/17 18:45 Alkaline Phosphatase 130 U/L (45-117) H 05/22/17 18:45 Creatine Kinase 39 IU/L (26-192) 05/22/17 13:42 Troponin I 0.02 ng/ml (0.00-0.05) 05/22/17 13:42 C-Reactive Protein Cancelled 05/23/17 05:05 B-Natriuretic Peptide Cancelled 05/16/17 18:22 Total Protein 5.3 g/dl (6.4-8.2) L 05/22/17 18:45 Albumin 2.7 g/dl (3.4-5.0) L 05/22/17 18:45 Active Medications Generic Name Dose Route Start Last Admin Trade Name Freq PRN Reason Stop Dose Admin Amlodipine Besylate 10 mg 05/23/17 10:00 Norvasc - PO DAILY [facility] Cholecalciferol 2,000 unit 05/23/17 10:00 Vitamin D3 - PO DAILY MARGARITA Hydromorphone HCl 1 mg 05/22/17 20:40 05/22/17 21:01 Dilaudid Injection - IVPUSH 1 mg Q6H PRN Administration PAIN Hydromorphone HCl 0.5 mg 05/22/17 21:36 Dilaudid Injection - IVPUSH Q6H PRN Pain 4-6 Pantoprazole Sodium 40 mg/ 100 mls @ 200 mls/hr 05/23/17 10:00 Sodium Chloride IVPB DAILY MARGARITA Piperacillin Sod/Tazobactam Sod 50 mls @ 100 mls/hr 05/22/17 18:30 05/23/17 03: 20 Zosyn 3.375gm Ivpb (Pre-Docked) IVPB 100 mls/hr Q8H-IV MARGARITA Administration Metronidazole 100 mls @ 100 mls/hr 05/23/17 10:00 Flagyl 500mg Premixed Ivpb - IVPB Q8H-IV MARGARITA Sodium Chloride 1,000 mls @ 100 mls/hr 05/23/17 07:40 05/23/17 07:50 Normal Saline - IV 100 mls/hr ASDIR MARGARITA Administration Lidocaine 1 patch 05/23/17 10:00 Lidoderm Patch - TP DAILY MARGARITA Lidocaine/Aluminum/Magnesium/Simeth 15 ml 05/23/17 12:00 Magic Mouthwash *Sjr Formula* - MM Q6HPO MARGARITA Metoprolol Tartrate 5 mg 05/22/17 14:52 Lopressor Injection - IVPUSH Q15M PRN HYPERTENSION Miscellaneous 1 each 05/23/17 22:00 Lidoderm Patch Removal MC DAILY@2200 [facility] Non-Formulary Medication 1 each 05/23/17 10:00 Patient's Own Med NR DAILY MARGARITA Sotalol HCl 120 mg 05/23/17 10:00 Betapace - PO BID [facility] ASSESSMENT/PLAN: 86 year old female pmh HTN, afib, GERD, myeloproliferative dz, lymphoma with suspected ischemic colitis with concomitant bacterial peritonitis Neuro: T12 compression fracture causing moderate pain - states that dilaudid gave her an episode of vertigo overnight -discontinue dilaudid and start on morphine PRN -care when moving patient -pt given lorazepam overnight Cardiac: pt has bradycardia (HR 50) likely 2/2 pain medications and benzo. -hx of hypertension and atrial fibrillation. Currently normotensive -hold rate controlling medications Heme/Onc: supratherapeutic INR 2/2 infection vs ischemia -- resolving (9.3->2.3) -hold warfarin -hx of myeloproliferative dz, lymphoma on radiation therapy, hx of coumadin use for afib Gastrointestinal: ischemic colitis with possible overlying bacterial peritonitis -continue medical management of pain with dilaudid Q6h PRN -maintain therapeutic INR -start metronidazole 500mg IV in 100ml @ 100ml/hr -Start piperacillin/tazobactam 3.375mg IV 50ml @ 100ml/hr -cont pantoprazole 40mg for GERD : According to pt, she has logan catheter inserted due to the difficulty of moving to urinate due to back pain -D/C logan and monitor urine output FEN: -continue NS 1L @ 100ml/hr, add dextrose to fluids -Pt is NPO Dispo: -pt is DNR/DNI -continue to medically manage and monitor in the ICU Problem List - Problems (1) Acute abdomen Code(s): R10.0 - ACUTE ABDOMEN (2) Compression fracture of lumbar vertebra Code(s): S32.000A - WEDGE COMPRESSION FRACTURE OF UNSP LUMBAR VERTEBRA, INIT Qualifiers: Encounter type: initial encounter Fracture type: closed Qualified Code(s): S32.000A - Wedge compression fracture of unspecified lumbar vertebra, initial encounter for closed fracture (3) Ischemic colitis Code(s): K55.9 - VASCULAR DISORDER OF INTESTINE, UNSPECIFIED (4) Peritonitis Code(s): K65.9 - PERITONITIS, UNSPECIFIED Visit type - Emergency Visit Emergency Visit: No - New Patient This patient is new to me today: Yes Date on this admission: 05/23/17 - Critical Care Critical Care patient: Yes Total Critical Care Time (in minutes): 45 Critical Care Statement: The care of this patient involved high complexity decision making to prevent further life threatening deterioration of the patient 's condition and/or to evalute & treat vital organ system(s) failure or risk of failure.
--- NOTE | 2017-05-23 08:52 | PN ---
Progress Note (short form) - Note Progress Note: surgery pt has less pain today. no fever. u/o 2500. wbc lower. abd-soft, now only localized left sided tenderness Plan- improving colitis, suspect ischemic. cont npo until no tenderness. cont iv abx. No indication for surgical exploration currently. Laboratory Tests 05/23/17 05/23/17 05:05 05:05 WBC 6.1 INR 2.31 H D
--- NOTE | 2017-05-23 08:53 | CONS ---
CARDIOLOGY CONSULTATION DATE OF CONSULTATION: 05/22/2017 REQUESTING PHYSICIAN: LOCATION: [facility]. HISTORY OF PRESENT ILLNESS: The patient is an 86-year-old female with longstanding of hypertension, hypertensive cardiovascular disease, mitral valvular disease, mitral valve prolapse, history of palpitations related to ventricular premature beats, history of paroxysmal atrial fibrillation, Tucker thyroiditis, gastroesophageal reflux disease, history of myelodysplastic syndrome, thrombocytosis, bilateral deafness, diagnosed to have lymphoma and was undergoing radiation therapy. Patient was admitted because of a fall causing fracture of her thoracic spine and also injury to her head. Prior to admission, patient said she had developed constipation, and while in the hospital, she was treated or constipation with multiple laxatives and enema and developed diffuse diarrhea associated with episodes of vomiting and progressive abdominal distention and pain and has been diagnosed to have an acute abdomen. She denies chest pain or discomfort either at rest or with exertion. No exertional dyspnea, paroxysmal nocturnal dyspnea, or orthopnea. No history of palpitations, lightheadedness, dizziness, presyncope, or syncope reported. No history of cough or expectoration. Continues to have ongoing abdominal discomfort. PAST HISTORY: As mentioned in the history of present illness. SURGICAL HISTORY: 1. Status post appendectomy. 2. Status post tonsillectomy. 3. Status post bilateral cataract extraction. 4. Status post removal of a basal cell carcinoma from the left lower lip. 5. Status post bilateral oophorectomies. SOCIAL HISTORY: Patient is , has 4 daughters and they are healthy. Does not smoke. Has an occasional drink and drinks a cup of decaffeinated coffee. No giovanny. FAMILY HISTORY: Father at age 70 of a ruptured cerebral aneurysm. Mother at age 92 related to cerebrovascular accident. Had 2 brothers and 2 sisters. All of them are . Two brothers had dementia and 1 sister was hypertensive and had history of a cerebrovascular event. All her siblings in mid-to-late 80s. ALLERGIES: 1. DARVON. 2. ASPIRIN. CURRENT MEDICATIONS: 1. Flagyl 500 mg IV q.8h. 2. Zosyn 3.375 mg q.8h IV. 3. Lidoderm patch. 4. Sotalol 120 mg b.i.d. 5. Amlodipine 10 mg p.o. daily. 6. Pantoprazole 40 mg IV daily. 7. Vitamin D3 at 2000 international units p.o. daily. 8. Morphine 1 mg IV push q.4h p.r.n. for pain. Prior to admission, patient was also on the following medications: 1. Amlodipine 10 mg p.o. daily. 2. Klonopin 0.25 mg p.o. t.i.d. p.r.n. 3. Hydroxyurea 500 mg p.o. daily. 4. Zantac 150 mg p.o. daily. 5. Warfarin. Dose was being adjusted according to INR. 6. Procrit. REVIEW OF SYSTEMS: Constitutional: No history of chills, fever, or night sweats reported. No history of unintentional weight loss. HEENT: No history of headaches, diplopia, blurred vision. No history of epistaxis, hoarseness, or tinnitus. History of bilateral deafness. Cardiovascular: No history of recent chest pain or discomfort. No recent palpitations. Respiratory: No history of cough, expectoration, or hemoptysis. No history of tuberculosis. Gastrointestinal: See history of present illness. History of irritable bowel syndrome. Neurological: No history of dizziness, lightheadedness, seizures, or syncope. No history of focal weakness. Endocrine: See history of present illness. No history of polyuria or polydipsia. No history of intolerance to cold or warm weather. Musculoskeletal: No history of myalgias or arthralgias reported. Genitourinary: No history of dysuria, frequency, or hematuria. Hematological/Lymphatics: See history of present illness. PHYSICAL EXAMINATION: General: An 86-year-old alert female who is complaining of significant abdominal pain and discomfort. There was no pallor, cyanosis, clubbing, or jaundice. Vital Signs: Blood pressure 134/40 mmHg, pulse 58 beats per minute and regular. Patient was afebrile. Respirations were 18 per minute. Weight was not recorded. HEENT: Normocephalic. Pupils were equal, reacting to light and accommodation. No scleral icterus or conjunctival pallor. No exanthemas were seen. Neck: Supple. No jugular venous distention. Hepatojugular reflex was negative. Carotids were 2+. Upstrokes were normal. No bruits were heard, and no thyromegaly was present. There was a right submandibular firm lymph node that was nontender. Heart: PMI was in the 5th intercostal space. No heaves or thrills. S1 and S2 were normal. Non-ejection systolic click was heard along the left sternal border and apex. No murmur or gallops were heard. Lungs: Clear on auscultation. Chest: Normal AP diameter. Expansion was symmetrical. Abdomen: Distended, diffusely tender on minimal palpation. There was rebound tenderness. No hepatosplenomegaly was appreciated. No palpable masses were felt. Bowel sounds were absent. Extremities: No calf tenderness or dependent edema. Pulses were equal. LABORATORY DATA: May 22, 2017, CBC: WBC count 7900, hemoglobin was 9.5 g/dL. Platelet count was 284,000. Serum sodium 137, potassium 4.2, chloride 103, CO2 of 24 millimoles per liter, BUN 25, creatinine 0.9 mg/dL. Lactic acid 1.1, calcium 8.1 mg/dL. AST was 57, ALT 39, alkaline phosphatase 130. Total protein 5.3, albumin 2.7. INR 9.42. X-ray of chest is not available. ECG May 16, 2017: Sinus bradycardia; left anterior hemiblock; poor R-wave progression, V1 to V3, partly related to left anterior hemiblock; nonspecific ST and T abnormalities. Abdominal and pelvic CT without contrast May 17, 2017, impression: 1. Small bilateral pleural effusion and basilar atelectasis. 2. Splenomegaly. 3. Mild right-sided hydronephrosis without obvious obstruction. 4. No evidence of retroperitoneal bleed or acute pathology within the abdomen or pelvis. X-ray of the abdomen May 22: No evidence of intestinal obstruction. IMPRESSION: 1. Acute abdomen. 2. History of paroxysmal atrial fibrillation, currently in sinus rhythm. 3. Hypertension, hypertensive cardiovascular disease, currently normotensive. 4. History of ventricular premature beats, currently in remission. 5. Myelodysplastic syndrome. 6. History of essential thrombocytosis. 7. History of anemia. 8. Tucker thyroiditis. 9. Lymphoma. 10. Right hydronephrosis, etiology to be determined. 11. Elevated INR, partly related to antibiotic therapy. RECOMMENDATIONS: 1. Continue current antihypertensive and cardiac therapy. 2. Follow up INR. 3. X-ray chest, portable. 4. Follow up CBC. PROGNOSIS: Critical. Thank you for your referral. Sincerely, SHAKIR GAUTAM M.D. /[id number]
[2017-05-23] MEDS ORDERED: morphine CARPU-JECT 2 MG/1 ML DISP.SYRIN IVPUSH PRN (09:46)
[2017-05-23] MEDS: DEXTROSE 5%-NORMAL SALINE 1,000 ML IV SCH (09:52)
[2017-05-23] MEDS: LIDOCAINE 5% TOPICAL PATCH TP SCH (09:53)
[2017-05-23] MEDS: CHOLECALCIFEROL (VITAMIN D3) 1,000 UNIT TABLET (FP) PO SCH (09:53)
[2017-05-23] MEDS: amLODIPine BESYLATE 10 MG TABLET (FP) PO SCH (09:55)
--- NOTE | 2017-05-23 09:55 | PN ---
GI Progress Note Subjective: Patient became confused after dilaudid last night, otherwise no acute events She states feeling a little better today - Objective Vital Signs: Vital Signs Temperature 98.4 F 05/23/17 06:14 Pulse Rate 51 L 05/23/17 08:00 Respiratory Rate 18 05/23/17 08:00 Blood Pressure 126/43 05/23/17 08:00 O2 Sat by Pulse Oximetry (%) 96 05/22/17 21:00 Constitutional: Calm Cardiovascular: Yes: Bradycardia Respiratory: Yes: Diminished (at bases bilaterally) Gastrointestinal Inspection: No: Distention ...Auscultate: Yes: Normoactive Bowel Sounds ...Palpate: Yes: Tenderness (TTP diffusely L>R, improved from yesterday however still with rebound) ...Percussion: No: Tympanitic Edema: Yes Edema: LLE: Trace, RLE: Trace Neurological: Yes: Alert, Oriented Labs: CBC, BMP 05/23/17 05:05 05/23/17 05:05 INR, PTT INR 2.31 (0.82-1.09) H D 05/23/17 05:05 Problem List - Problems (1) Ischemic colitis Assessment/Plan: Clinically some improvement today Continuing conservative therapy for now IV hydration, daily labs, CRP in AM. If continued improvement tomorrow could consider introducing clear liquids IV Abx per ID Surgery following Code(s): K55.9 - VASCULAR DISORDER OF INTESTINE, UNSPECIFIED
[2017-05-23] MEDS ORDERED: PANTOPRAZOLE SODIUM 40 MG in SODIUM CHLORIDE 100 ML IVPB SCH (10:00)
[2017-05-23] MEDS ORDERED: SOTALOL HCL 80 MG TABLET (FP) PO SCH ×2 (10:00→22:00)
[2017-05-23] MEDS ORDERED: PANTOPRAZOLE SODIUM 100 ML IVPB SCH (10:55)
[2017-05-23] MEDS: SOTALOL HCL 80 MG TABLET (FP) PO SCH (11:12)
--- NOTE | 2017-05-23 12:09 | PN ---
Teaching Attending Note Name of Resident: Dutch Craig ATTENDING PHYSICIAN STATEMENT I saw and evaluated the patient. I reviewed the resident's note and discussed the case with the resident. I agree with the resident's findings and plan as documented. SUBJECTIVE: Patient seen and examined in the ICU. Awake and alert. Has been NPO. Some mild improvement in abdominal pain. No flatus or gas reported. Denies CP or SOB. Intake & Output 05/20/17 05/21/17 05/22/17 05/23/17 23:59 23:59 23:59 23:59 Intake Total 400 1468 2120 Output Total 2500 700 Balance 400 1468 -380 -700 Weight 146 lb 11.2 oz Last Vital Signs Temp Pulse Resp BP Pulse Ox 98.4 F 49 L 18 126/43 96 05/23/17 06:14 05/23/17 11:36 05/23/17 08:00 05/23/17 08:00 05/23/17 11:36 Active Medications Amlodipine Besylate (Norvasc -) 10 mg PO DAILY [facility] Last Admin: 05/23/17 09:55 Dose: 10 mg Cholecalciferol (Vitamin D3 -) 2,000 unit PO DAILY MARGARITA Last Admin: 05/23/17 09:53 Dose: 2,000 unit Piperacillin Sod/Tazobactam Sod (Zosyn 3.375gm Ivpb (Pre-Docked)) 50 mls @ 100 mls/hr IVPB Q8H-IV MARGARITA Last Admin: 05/23/17 09:53 Dose: 100 mls/hr Metronidazole (Flagyl 500mg Premixed Ivpb -) 100 mls @ 100 mls/hr IVPB Q8H-IV MARGARITA Last Admin: 05/23/17 11:12 Dose: 100 mls/hr Dextrose/Sodium Chloride (D5-Ns -) 1,000 mls @ 100 mls/hr IV ASDIR MARGARITA Last Admin: 05/23/17 09:52 Dose: 100 mls/hr Pantoprazole Sodium (Protonix 40mg Ivpb (Pre-Docked)) 100 mls @ 200 mls/hr IVPB DAILY [facility] Lidocaine (Lidoderm Patch -) 1 patch TP DAILY MARGARITA Last Admin: 05/23/17 09:53 Dose: 1 patch Lidocaine/Aluminum/Magnesium/Simeth (Magic Mouthwash *Sjr Formula* -) 15 ml MM Q6HPO MARGARITA Last Admin: 05/23/17 11:12 Dose: 15 ml Metoprolol Tartrate (Lopressor Injection -) 5 mg IVPUSH Q15M PRN PRN Reason: HYPERTENSION Miscellaneous (Lidoderm Patch Removal) 1 each MC DAILY@2200 [facility] Morphine Sulfate (Morphine Injection -) 2 mg IVPUSH Q6H PRN PRN Reason: PAIN Stop: 05/24/17 09:45 Last Admin: 05/23/17 10:21 Dose: 2 mg Non-Formulary Medication (Patient's Own Med) 1 each NR DAILY [facility] Sotalol HCl (Betapace -) 80 mg PO DAILY@1200 [facility] Last Admin: 05/23/17 11:12 Dose: 80 mg Sotalol HCl (Betapace -) 120 mg PO HS MARGARITA Sotalol HCl (Betapace -) 40 mg PO AM [facility] Gen: Awake and alert, mildly uncomfortable with movement Heart: S1S2 regular Lung: decreased breath sounds at the bases Abd: softly distended, (+) Mild diffuse tenderness to palpation, (+) guarding Ext: no edema Neuro: Non-focal Laboratory Results - last 24 hr 05/22/17 05/22/17 05/22/17 12:10 13:42 13:57 WBC Corrected WBC (auto) RBC Hgb Hct MCV MCH MCHC RDW Plt Count MPV Differential Comment Platelet Estimate Platelet Comment RBC Morphology INR Sodium Potassium Chloride Carbon Dioxide Anion Gap BUN Creatinine Creat Clearance w eGFR Random Glucose Lactic Acid 0.9 1.1 Calcium Total Bilirubin AST ALT Alkaline Phosphatase Creatine Kinase 39 Troponin I 0.02 C-Reactive Protein Total Protein Albumin 05/22/17 05/22/17 05/22/17 15:00 15:00 17:39 WBC 7.9 Cancelled Corrected WBC (auto) Cancelled RBC 3.74 Cancelled Hgb 9.5 L D Cancelled Hct 29.4 L D Cancelled MCV 78.5 L Cancelled MCH 25.3 L Cancelled MCHC 32.3 Cancelled RDW 17.9 H Cancelled Plt Count 284 D Cancelled MPV 9.6 Cancelled Differential Comment Cancelled Platelet Estimate Cancelled Platelet Comment Cancelled RBC Morphology Cancelled INR 9.42 H* Sodium Potassium Chloride Carbon Dioxide Anion Gap BUN Creatinine Creat Clearance w eGFR Random Glucose Lactic Acid Calcium Total Bilirubin AST ALT Alkaline Phosphatase Creatine Kinase Troponin I C-Reactive Protein Total Protein Albumin 05/22/17 05/22/17 05/23/17 18:45 21:00 05:05 WBC 6.1 Corrected WBC (auto) RBC 3.24 L Hgb 8.1 L D Hct 25.3 L MCV 78.2 L MCH 25.1 L MCHC 32.1 RDW 18.5 H Plt Count 219 D MPV 9.6 Differential Comment Platelet Estimate Platelet Comment RBC Morphology INR 4.48 H* D Sodium 137 Potassium 4.2 Chloride 103 Carbon Dioxide 24 Anion Gap 10 BUN 25 H D Creatinine 0.9 Creat Clearance w eGFR 59.51 Random Glucose 94 Lactic Acid Calcium 8.1 L Total Bilirubin 0.5 D AST 57 H ALT 39 Alkaline Phosphatase 130 H Creatine Kinase Troponin I C-Reactive Protein Total Protein 5.3 L Albumin 2.7 L 05/23/17 05/23/17 05/23/17 05:05 05:05 05:05 WBC Corrected WBC (auto) RBC Hgb Hct MCV MCH MCHC RDW Plt Count MPV Differential Comment Platelet Estimate Platelet Comment RBC Morphology INR 2.31 H D Sodium 138 Potassium 3.7 Chloride 105 Carbon Dioxide 23 Anion Gap 10 BUN 28 H Creatinine 0.8 Creat Clearance w eGFR Random Glucose 83 Lactic Acid Calcium 7.5 L Total Bilirubin AST ALT Alkaline Phosphatase Creatine Kinase Troponin I C-Reactive Protein 12.0 H Cancelled Total Protein Albumin ASSESSMENT AND PLAN: Acute Abdomen Suspected Ischemic Colitis Atrial Fibrillation Myeloproliferative Disorder Anemia Lymphoma HTN GERD - ABX per ID - IVF - Pain control - GI follow up noted - NPO - Rate control - AC for INR 2-3 - pt DNR/DNI Dr Zuleta Critical care time spent in reviewing chart, evaluating patient and formulating plan 35 min
[2017-05-23] MEDS: PANTOPRAZOLE SODIUM 100 ML IVPB SCH (12:29)
--- NOTE | 2017-05-23 12:50 | PN ---
Progress Note (short form) - Note Progress Note: Patients seen and examined. Daughter at bedside. Patient mentioned that she felt dizzy post dilaudid and she says fell asleep once she got ativan last night. She feels that she has improved slightly when compared to yesterday General: appears in pain Extremities: No pallor or icterus, no pedal edema. Chest:CTA b/l Abdomen: mild tenderness noted (improved than yesterday). No guarding noted Neuro: Alert, oriented, non-focal. CVS: Normal sinus rhythm, S1, S2, no gallop or murmur. H and N: R parotid mass palpable Current Medications Generic Name Dose Route Start Last Admin Trade Name Freq PRN Reason Stop Dose Admin Amlodipine Besylate 10 mg 05/17/17 10:00 05/22/17 10:49 Norvasc - PO 10 mg DAILY MARGARITA Administration Cholecalciferol 2,000 unit 05/17/17 10:00 05/22/17 10:49 Vitamin D3 - PO 2,000 unit DAILY MARGARITA Administration Sodium Chloride 1,000 mls @ 100 mls/hr 05/21/17 10:45 05/22/17 10:50 Normal Saline - IV Not Given ASDIR MARGARITA Metronidazole 100 mls @ 100 mls/hr 05/21/17 18:00 05/22/17 10:49 Flagyl 500mg Premixed Ivpb - IVPB 100 mls/hr Q8H-IV MARGARITA Administration Ceftriaxone Sodium 2 gm/ 100 mls @ 200 mls/hr 05/21/17 20:00 05/22/17 09:12 Dextrose IVPB 200 mls/hr DAILY MARGARITA Administration Pantoprazole Sodium 40 mg/ 100 mls @ 200 mls/hr 05/23/17 10:00 Sodium Chloride IVPB DAILY MARGARITA Lidocaine 1 patch 05/17/17 10:45 05/22/17 09:12 Lidoderm Patch - TP 1 patch DAILY MARGARITA Administration Lidocaine/Aluminum/Magnesium/Simeth 15 ml 05/17/17 00:00 05/22/17 11:43 Magic Mouthwash *Sjr Formula* - MM 15 ml Q6HPO MARGARITA Administration Miscellaneous 1 each 05/17/17 22:00 05/21/17 22:00 Lidoderm Patch Removal MC 1 each DAILY@2200 MARGARITA Administration Gelclair Oral Gel - 1 each 05/17/17 18:00 05/22/17 10:50 Patient Own Med NR Not Given DAILY MARGARITA Sotalol HCl 120 mg 05/17/17 10:00 05/22/17 10:49 Betapace - PO 120 mg BID MARGARITA Administration Last Vital Signs Temp Pulse Resp BP Pulse Ox 99.0 F 63 20 148/53 96 05/22/17 09:00 05/22/17 09:00 05/22/17 09:00 05/22/17 09:00 05/22/17 09:00 Abnormal Lab Results 05/21/17 05/21/17 05/21/17 05:35 14:20 14:20 WBC 10.6 H RBC 2.91 L Hgb 7.0 L Hct 22.3 L MCV 76.5 L MCH 23.9 L MCHC 31.2 L RDW 18.5 H Neutrophils % Lymphocytes % 4.0 L D Monocytes % 11.0 H D Band Neutrophils 15.0 H INR Sodium 131 L Chloride 94 L BUN 35 H D Creatinine 1.2 H D Calcium 8.2 L Phosphorus Total Bilirubin 1.3 H AST 96 H D Alkaline Phosphatase 165 H D Total Protein 5.5 L Albumin 3.0 L D Crossmatch See Detail 05/22/17 05/22/17 05/22/17 00:45 05:45 05:45 WBC RBC 3.07 L 3.14 L Hgb 7.6 L 7.8 L Hct 23.8 L 24.5 L MCV 77.7 L 77.8 L MCH 24.9 L 24.7 L MCHC 31.7 L RDW 17.8 H 17.6 H Neutrophils % 84.4 H D Lymphocytes % 3.7 L Monocytes % 11.2 H Band Neutrophils INR 8.48 H* D Sodium Chloride BUN Creatinine Calcium Phosphorus Total Bilirubin AST Alkaline Phosphatase Total Protein Albumin Crossmatch 05/22/17 05:45 WBC RBC Hgb Hct MCV MCH MCHC RDW Neutrophils % Lymphocytes % Monocytes % Band Neutrophils INR Sodium 132 L Chloride BUN 32 H Creatinine Calcium 7.5 L Phosphorus 2.3 L D Total Bilirubin AST 57 H D Alkaline Phosphatase 126 H D Total Protein 4.8 L Albumin 2.5 L Crossmatch Assessment/Plan: Suspected ischemic colitis: -on conservative management -improved than the last two days -White count down trended -appreciate GI and surgery follow-up and ICU level care Coagulopathy: -in the setting of coumadin/illness/abx -corrected from 9 to 2.3 today -may need to be bridged with UFH/LMWH once INR is not between 2-3. -continue to hold coumadin. -appreciate cardiology consult anemia: -now back to baseline -will hold off on transfusion or procrit for now -will re-start Hydrea if the platelet count trends up around 500-600. MALT lymphoma of the Parotid: -Receiving RT as an OP. Rad Onc consult appreciated h/o Ar ET -received procrit on 05/18/2017 Iron overload: -to be monitored, presently on no treatment Back pain from Compression fracture: -seen by Neurosurgery -conservative management Will follow closely
--- NOTE | 2017-05-23 14:27 | PN ---
Physical Exam: SUBJECTIVE: Patient seen and examined this AM. Patient clinically looks much improved. States she has less abdominal pain, feels less lethargic. States that she felt dizzy after 1 dose of Dilaudid. Patient's daughter Farhan was at bedside. No fevers, chills, SOB, CP. OBJECTIVE: Vital Signs Period Temp Pulse Resp BP Sys/Conde Pulse Ox Last 24 Hr 97.5 F-98.4 F 43-58 14-22 108-138/39-58 96-96 GENERAL: The patient is awake, alert, sitting upright in bed, not in distress, looks better than yesterday EYES: PERRL, extraocular movements intact ENT: Dry mucous membranes, R sided tongue bluish discoloration, R sided yellow circular tongue sores NECK: Neck was supple, not tender to palpation. Mildly limited ROM of neck, discomfort with movement LUNGS: Breath sounds equal, upper lung hernández were clear to auscultation bilaterally, basilar crackles noted HEART: Bradycardic rate, regular rhythm, S1, S2 +2/6 systolic murmur heard best in the tricuspid region ABDOMEN: Protuberant abdomen which is unchanged, soft, no guarding, TTP L>R, + rebound tenderness, hypoactive bowel sounds EXTREMITIES: 2+ pulses, warm, well-perfused, no edema. Telangiectasias present on extremities. Tenderness to palpation of the mid/lower back. NEUROLOGICAL: Patient is oriented to person, place, and month. Cranial nerves II through XII were intact. Sensation was intact in the face and body bilaterally. Muscle strength was 5/5 in all extremities. Reflexes were 2+ in all extremities. FTN test was intact. Vibratory sensation and proprioception was intact. Gait was not observed. CBC, BMP 05/23/17 05:05 05/23/17 05:05 INR, PTT INR 2.31 (0.82-1.09) H D 05/23/17 05:05 Active Medications Generic Name Dose Route Start Last Admin Trade Name Freq PRN Reason Stop Dose Admin Amlodipine Besylate 10 mg 05/23/17 10:00 05/23/17 09:55 Norvasc - PO 10 mg DAILY MARGARITA Administration Cholecalciferol 2,000 unit 05/23/17 10:00 05/23/17 09:53 Vitamin D3 - PO 2,000 unit DAILY MARGARITA Administration Enoxaparin Sodium 60 mg 05/23/17 22:00 Lovenox - SQ Q12H MARGARITA Piperacillin Sod/Tazobactam Sod 50 mls @ 100 mls/hr 05/22/17 18:30 05/23/17 09: 53 Zosyn 3.375gm Ivpb (Pre-Docked) IVPB 100 mls/hr Q8H-IV MARGARITA Administration Metronidazole 100 mls @ 100 mls/hr 05/23/17 10:00 05/23/17 11:12 Flagyl 500mg Premixed Ivpb - IVPB 100 mls/hr Q8H-IV MARGARITA Administration Dextrose/Sodium Chloride 1,000 mls @ 100 mls/hr 05/23/17 09:45 05/23/17 09:52 D5-Ns - IV 100 mls/hr ASDIR MARGARITA Administration Pantoprazole Sodium 100 mls @ 200 mls/hr 05/23/17 11:00 05/23/17 12:29 Protonix 40mg Ivpb (Pre-Docked) IVPB 200 mls/hr DAILY MARGARITA Administration Lidocaine 1 patch 05/23/17 10:00 05/23/17 09:53 Lidoderm Patch - TP 1 patch DAILY MARGARITA Administration Lidocaine/Aluminum/Magnesium/Simeth 15 ml 05/23/17 12:00 05/23/17 11:12 Magic Mouthwash *Sjr Formula* - MM 15 ml Q6HPO MARGARITA Administration Metoprolol Tartrate 5 mg 05/22/17 14:52 Lopressor Injection - IVPUSH Q15M PRN HYPERTENSION Miscellaneous 1 each 05/23/17 22:00 Lidoderm Patch Removal MC DAILY@2200 MARGARITA Morphine Sulfate 2 mg 05/23/17 09:46 05/23/17 10:21 Morphine Injection - IVPUSH 05/24/17 09:45 2 mg Q6H PRN Administration PAIN Non-Formulary Medication 1 each 05/23/17 10:00 Patient's Own Med NR DAILY MARGARITA Sotalol HCl 80 mg 05/23/17 12:00 05/23/17 11:12 Betapace - PO 80 mg DAILY@1200 MARGARITA Administration Sotalol HCl 120 mg 05/23/17 22:00 Betapace - PO HS MARGARITA Sotalol HCl 40 mg 05/24/17 07:00 Betapace - PO AM MARGARITA ASSESSMENT/PLAN: Patient is an 86yo F with PMHx of Afib on Coumadin, 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 She was brought by EMS after a mechanical fall and was admitted for r/ o bleed. She developed possible ischemic colitis and was transferred to the ICU for further management. # Suspected Acute Ischemic Colitis / Infectious Colitis - Patient likely lost fluids after episode of emesis and high volume diarrhea - Lactate negative, less likely severe infarction - Abdominal CT showed signs of colitis but no perforation, no pnuematosis, no obstruction, +ileus - As per ID, pt is on Flagyl 500mg Q8 IV + Zosyn 3.75 Q8 IV to cover for possible infectious component to colitis, WBC trending down, afebrile - Pt on bowel rest (NPO), IVF NS 100mL/hr - Surgery states no intervention at this time - GI agrees with conservative therapy, states that if patient improves tomorrow , can start clears - Pt transferred to ICU for higher level of care # Hx of Afib with Supratherapeutic INR - resolved (INR 2.31) - Could possibly be a combination of low PO intake + pain medications for back pain, given 2.5mg PO vit K x1 - Coumadin was held, pt had episode of dark brown emesis attributed to epithelial cell shedding, dark stool was only trace guiac positive, FOBT negative; no active bleeds - Now that INR is in therapeutic range, will start pt on Lovenox SQ 1mg/kg BID starting 10pm 05/23 - Was on Sotalol 80mg PO TID for rate control, now changed regimen as per Cardiology: 40mg AM + 80mg afternoon + 120mg HS # Anemia - Patient has transfusion dependent anemia, maintained on Epo 1-2x weekly - S/p 1 unit PRBC, Hgb improved. Today 9.5 --> 8.1, drop is likely dilutional from fluids. - No signs of active bleeding at this time # S/p mechanical fall - Pt was on Couamdin, but CT scans of head and abd/pelvis ruled out any acute bleeds # Mild T12 Compression Fracture - Neurosurgery recommends conservative management, pain control, will reconsider brace - D/c'd Tylenol and Tramadol after INR jump - Pt on Lidocaine patch + 2mg Morphine IVpush Q6 PRN # Diarrhea - s/p aggressive bowel regimen - Ordered C.diff panel # HTN - well controlled - Amlodipine and Sotalol PO will not be given while patient is NPO - Pt on Lopressor 5mg IV push if SBP > 120 # Anxiety - Discontinued home clonazepam 0.25mg PO while patient is NPO # 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 - Pt has hx of transfusion dependent anemia, now maintained on Epo 1-2x weekly - Given Epo 40,000 U x1 in the hospital - Per Oncology, stopped hydroxyurea for PLT count, but will restart if PLTs are between 500-600 - Radiation treatment to be determined by oncology # 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 Hung Visit type - Emergency Visit Emergency Visit: No - New Patient This patient is new to me today: No - Critical Care Critical Care patient: No - Discharge Referral Referred to [facility] No
--- NOTE | 2017-05-23 16:48 | PN ---
Teaching Attending Note Name of Resident: Maryse Hung ATTENDING PHYSICIAN STATEMENT I saw and evaluated the patient. I reviewed the resident's note and discussed the case with the resident. I agree with the resident's findings and plan as documented. SUBJECTIVE: Patient is feeling better today , less abdominal pain than yesterday. Patient is comfortable, daughter at bedside. OBJECTIVE: Vital Signs Temperature 98.0 F 05/23/17 14:24 Pulse Rate 48 L 05/23/17 14:24 Respiratory Rate 18 05/23/17 14:24 Blood Pressure 126/45 05/23/17 14:24 O2 Sat by Pulse Oximetry (%) 96 05/23/17 11:36 CBCD WBC 6.1 K/mm3 (4.0-10.0) 05/23/17 05:05 RBC 3.24 M/mm3 (3.60-5.2) L 05/23/17 05:05 Hgb 8.1 GM/dL (10.7-15.3) L D 05/23/17 05:05 Hct 25.3 % (32.4-45.2) L 05/23/17 05:05 MCV 78.2 fl (80-96) L 05/23/17 05:05 MCHC 32.1 g/dl (32.0-36.0) 05/23/17 05:05 RDW 18.5 % (11.6-15.6) H 05/23/17 05:05 Plt Count 219 K/MM3 (134-434) D 05/23/17 05:05 MPV 9.6 fl (7.5-11.1) 05/23/17 05:05 CMP Sodium 138 mmol/L (136-145) 05/23/17 05:05 Potassium 3.7 mmol/L (3.5-5.1) 05/23/17 05:05 Chloride 105 mmol/L (98-107) 05/23/17 05:05 Carbon Dioxide 23 mmol/L (21-32) 05/23/17 05:05 Anion Gap 10 (8-16) 05/23/17 05:05 BUN 28 mg/dL (7-18) H 05/23/17 05:05 Creatinine 0.8 mg/dL (0.55-1.02) 05/23/17 05:05 Creat Clearance w eGFR 59.51 (>60) 05/22/17 18:45 Random Glucose 83 mg/dL (74-106) 05/23/17 05:05 Calcium 7.5 mg/dL (8.5-10.1) L 05/23/17 05:05 Total Bilirubin 0.5 mg/dL (0.2-1.0) D 05/22/17 18:45 AST 57 U/L (15-37) H 05/22/17 18:45 ALT 39 U/L (12-78) 05/22/17 18:45 Alkaline Phosphatase 130 U/L (45-117) H 05/22/17 18:45 Total Protein 5.3 g/dl (6.4-8.2) L 05/22/17 18:45 Albumin 2.7 g/dl (3.4-5.0) L 05/22/17 18:45 CARDIAC ENZYMES Creatine Kinase 39 IU/L (26-192) 05/22/17 13:42 Troponin I 0.02 ng/ml (0.00-0.05) 05/22/17 13:42 Current Medications Generic Name Dose Route Start Last Admin Trade Name Freq PRN Reason Stop Dose Admin Amlodipine Besylate 10 mg 05/23/17 10:00 05/23/17 09:55 Norvasc - PO 10 mg DAILY MARGARITA Administration Cholecalciferol 2,000 unit 05/23/17 10:00 05/23/17 09:53 Vitamin D3 - PO 2,000 unit DAILY MARGARITA Administration Enoxaparin Sodium 60 mg 05/23/17 22:00 Lovenox - SQ Q12H MARGARITA Piperacillin Sod/Tazobactam Sod 50 mls @ 100 mls/hr 05/22/17 18:30 05/23/17 09: 53 Zosyn 3.375gm Ivpb (Pre-Docked) IVPB 100 mls/hr Q8H-IV MARGARITA Administration Metronidazole 100 mls @ 100 mls/hr 05/23/17 10:00 05/23/17 11:12 Flagyl 500mg Premixed Ivpb - IVPB 100 mls/hr Q8H-IV MARGARITA Administration Dextrose/Sodium Chloride 1,000 mls @ 100 mls/hr 05/23/17 09:45 05/23/17 09:52 D5-Ns - IV 100 mls/hr ASDIR MARGARITA Administration Pantoprazole Sodium 100 mls @ 200 mls/hr 05/23/17 11:00 05/23/17 12:29 Protonix 40mg Ivpb (Pre-Docked) IVPB 200 mls/hr DAILY MARGARITA Administration Lidocaine 1 patch 05/23/17 10:00 05/23/17 09:53 Lidoderm Patch - TP 1 patch DAILY MARGARITA Administration Lidocaine/Aluminum/Magnesium/Simeth 15 ml 05/23/17 12:00 05/23/17 11:12 Magic Mouthwash *Sjr Formula* - MM 15 ml Q6HPO MARGARITA Administration Metoprolol Tartrate 5 mg 05/22/17 14:52 Lopressor Injection - IVPUSH Q15M PRN HYPERTENSION Miscellaneous 1 each 05/23/17 22:00 Lidoderm Patch Removal MC DAILY@2200 MARGARITA Morphine Sulfate 2 mg 05/23/17 09:46 05/23/17 10:21 Morphine Injection - IVPUSH 05/24/17 09:45 2 mg Q6H PRN Administration PAIN Non-Formulary Medication 1 each 05/23/17 10:00 Patient's Own Med NR DAILY MARGARITA Sotalol HCl 80 mg 05/23/17 12:00 05/23/17 11:12 Betapace - PO 80 mg DAILY@1200 MARGARITA Administration Sotalol HCl 120 mg 05/23/17 22:00 Betapace - PO HS [facility] Sotalol HCl 40 mg 05/24/17 07:00 Betapace - PO AM [facility] Home Medications Medication Instructions Recorded Amlodipine Besylate [Norvasc -] 10 mg PO DAILY #0 tablet 05/13/13 Clonazepam [Klonopin] 0.5 mg PO BID 04/21/14 Hydroxyurea [Hydrea 500Mg Capsule 500 mg PO DAILY 04/21/14 -] Ranitidine [Zantac -] 150 mg PO BID 06/10/15 Sotalol HCl [Sotalol] 80 mg PO TID 06/10/15 Warfarin Na [Coumadin -] 4 mg PO DAILY 06/10/15 Cholecalciferol (Vitamin D3) 2,000 unit PO DAILY 03/22/16 [Vitamin D3] Epoetin Chris [Procrit] 0 unit IJ ASDIR 09/11/16 Cranberry 400 mg PO DAILY 02/21/17 Mag Hydrox/Alh/Smc/Dpha/Lido 15 ml MM Q6HPO #1 mouthwash 05/16/17 [Magic Mouthwash *Sjr Formula* -] Pot Sor/Hy-Ethylcel/Pvp/Hyalur 15 ml MM DAILY #1 gel.packet 05/16/17 [Gelclair Oral Gel Packet] Systane Ultra 0.4-0.3% Eye Drp TID 05/18/17 stool occult: Negative INR : 2.31 today PE: Abdomen: Involuntary guarding Right lower quadrant. bowel sounds diminished. ASSESSMENT AND PLAN: 86 y/o lady with h/o Lymphoma , on radiation , myelo-proliferative disease ,HTN , A fib on coumadin and other medical problems who presented after a mechanical fall. # Acute suspected Colitis infectious vs Ischemic on CT scan. On IV Antibiotics Zosyn /Flagyl continue, patient is doing better. GI, Surgery and ID on the case. # T12 fracture- will stay away from Tylenol since can elevated INR. Will order Morphine prn. # Supratherapeutic INR; FFP if needed, s/p Vit K po 2.5mg x 1 ,INR is 2.3 today , CBC 8.1 today. # No BM today but as per notes patient had Black stools concern for upper GI bleed with supratherapeutic INR and black stools in setting of drop in H/H. On IVF, protonix ggt. Hgb 8.1 today. GI consult appreciated. # S/P acute constipation: s/p multiple bowel regimen was given . AXR showing ileus. will repeat Xray and s/p CT abdomen/pelvis with contrast positive for Ileus, # Afib- rate controlled. cont. Sotatolol DVT ppx- SCD. on lovenox with INR of 2.31 today patient is getting transferred from ICU to telemetry
[2017-05-23] MEDS: SODIUM CHLORIDE 1,000 ML IV SCH (20:30)
[2017-05-23] MEDS ORDERED: LORazepam 1 MG TABLET PO ONE (22:00)
[2017-05-23] MEDS: ENOXAPARIN NA (PORCINE) 60 MG/0.6 ML DISP.SYRIN SQ SCH (22:04)
[2017-05-24] MEDS: PIPERACILLIN/TAZOB 3.375 GM 50 ML IVPB SCH ×3 (03:00→17:12)
[2017-05-24] MEDS: METRONIDAZOLE 500 MG PREMIXED 100 ML IVPB SCH (03:30)
[2017-05-24 05:46] LABS: BASOPHIL 0.5 % (0-2.0); EOSINOPHIL 2.3 % (0-4.5); MCH 24.7 pg (25.7-33.7); MCHC 31.5 g/dl (32.0-36.0); MEAN CELL VOLUME 78.5 fl (80-96); MEAN PLT VOLUME 8.7 fl (7.5-11.1); PLATELET COUNT 227 K/MM3 (134-434); RDW 18.4 % (11.6-15.6); WHITE BLOOD COUNT 5.2 K/mm3 (4.0-10.0)
[2017-05-24 06:19] LABS: ALBUMIN 2.4 g/dl (3.4-5.0); ALK PHOS 91 U/L (45-117); ANION GAP 8 (8-16); BILIRUBIN,TOTAL 0.6 mg/dL (0.2-1.0); CALCIUM 7.7 mg/dL (8.5-10.1); CO2 23 mmol/L (21-32); CREATININE 0.8 mg/dL (0.55-1.02); GLUCOSE,RANDOM 164 mg/dL (74-106); SGOT/AST 22 U/L (15-37); SGPT/ALT 23 U/L (12-78); TOT PROT 4.4 g/dl (6.4-8.2)
[2017-05-24 06:23] LABS: INR 2.73 (0.82-1.09); PROTHROMBIN TIME (PATIENT) 30.7 SEC (9.98-11.88)
[2017-05-24 06:37] LABS: C-REACTIVE PROTEIN 7.1 MG/DL (0.00-0.3)
[2017-05-24] MEDS: MAG HYDROX/ALH/SMC/DPHA/LIDO 240 ML MOUTHWASH MM SCH ×4 (06:46→17:12)
[2017-05-24] MEDS ORDERED: SOTALOL HCL 80 MG TABLET (FP) PO SCH ×2 (07:00)
--- NOTE | 2017-05-24 07:15 | PN ---
Progress Note, Physician Chief Complaint: ID ICU follow up for calvin 86 yea old female atrial fibrillation coagulopathy presents with abd pain and colitis thought secondary to ischemia( or pressure) Has MDS Has been on antibiotics PIP TAZO and Metronidazole APpears to be making progress with diminishing abd pain NOt febrile - Current Medication List Current Medications: Active Medications Amlodipine Besylate (Norvasc -) 10 mg PO DAILY [facility] Last Admin: 05/23/17 09:55 Dose: 10 mg Cholecalciferol (Vitamin D3 -) 2,000 unit PO DAILY [facility] Last Admin: 05/23/17 09:53 Dose: 2,000 unit Enoxaparin Sodium (Lovenox -) 60 mg SQ Q12H [facility] Last Admin: 05/23/17 22:04 Dose: 60 mg Piperacillin Sod/Tazobactam Sod (Zosyn 3.375gm Ivpb (Pre-Docked)) 50 mls @ 100 mls/hr IVPB Q8H-IV [facility] Last Admin: 05/24/17 03:00 Dose: 100 mls/hr Metronidazole (Flagyl 500mg Premixed Ivpb -) 100 mls @ 100 mls/hr IVPB Q8H-IV [facility] Last Admin: 05/24/17 03:30 Dose: 100 mls/hr Dextrose/Sodium Chloride (D5-Ns -) 1,000 mls @ 100 mls/hr IV ASDIR [facility] Last Admin: 05/23/17 09:52 Dose: 100 mls/hr Pantoprazole Sodium (Protonix 40mg Ivpb (Pre-Docked)) 100 mls @ 200 mls/hr IVPB DAILY [facility] Last Admin: 05/23/17 12:29 Dose: 200 mls/hr Lidocaine (Lidoderm Patch -) 1 patch TP DAILY [facility] Last Admin: 05/23/17 09:53 Dose: 1 patch Lidocaine/Aluminum/Magnesium/Simeth (Magic Mouthwash *Sjr Formula* -) 15 ml MM Q6HPO [facility] Last Admin: 05/24/17 06:46 Dose: Not Given Lorazepam (Ativan -) 1 mg PO ONCE ONE Stop: 05/23/17 22:01 Last Admin: 05/23/17 22:06 Dose: 1 mg Metoprolol Tartrate (Lopressor Injection -) 5 mg IVPUSH Q15M PRN PRN Reason: HYPERTENSION Miscellaneous (Lidoderm Patch Removal) 1 each MC DAILY@2200 [facility] Last Admin: 05/23/17 22:04 Dose: 1 each Morphine Sulfate (Morphine Injection -) 2 mg IVPUSH Q6H PRN PRN Reason: PAIN Stop: 05/24/17 09:45 Last Admin: 05/23/17 10:21 Dose: 2 mg Non-Formulary Medication (Patient's Own Med) 1 each NR DAILY [facility] Sotalol HCl (Betapace -) 80 mg PO DAILY@1200 MARGARITA Last Admin: 05/23/17 11:12 Dose: 80 mg Sotalol HCl (Betapace -) 120 mg PO HS [facility] Last Admin: 05/23/17 22:04 Dose: 120 mg Sotalol HCl (Betapace -) 40 mg PO AM [facility] Last Admin: 05/24/17 06:54 Dose: 40 mg - Objective Vital Signs: Vital Signs Temperature 98.2 F 05/24/17 06:00 Pulse Rate 60 05/24/17 06:00 Respiratory Rate 20 05/24/17 06:00 Blood Pressure 143/46 05/24/17 06:00 O2 Sat by Pulse Oximetry (%) 98 05/23/17 19:39 Constitutional: Yes: No Distress Eyes: Yes: WNL, Conjunctiva Clear HENT: Yes: WNL, Atraumatic Neck: Yes: WNL, Supple Cardiovascular: Yes: Regular Rate and Rhythm, S1, S2 Respiratory: Yes: WNL, Regular, CTA Bilaterally. No: Rales, Rhonchi Gastrointestinal: Yes: Soft, Tenderness, Other (LEss tenderness difffuse) Extremities: No: Cold, Cool, Cyanosis Edema: No Labs: CBC, BMP 05/24/17 05:10 05/24/17 05:10 INR, PTT INR 2.73 (0.82-1.09) H 05/24/17 05:10 Problem List - Problems (1) Myeloproliferative disease Code(s): D47.1 - CHRONIC MYELOPROLIFERATIVE DISEASE (2) Ischemic colitis, enteritis, or enterocolitis Code(s): K55.9 - VASCULAR DISORDER OF INTESTINE, UNSPECIFIED (3) Peritonitis Code(s): K65.9 - PERITONITIS, UNSPECIFIED (4) Compression fracture of lumbar vertebra Code(s): S32.000A - WEDGE COMPRESSION FRACTURE OF UNSP LUMBAR VERTEBRA, INIT Qualifiers: Encounter type: initial encounter Fracture type: closed Qualified Code(s): S32.000A - Wedge compression fracture of unspecified lumbar vertebra, initial encounter for closed fracture Assessment/Plan Microbiology 05/22/17 15:08 Blood - Peripheral Venous Blood Culture - Preliminary NO GROWTH OBTAINED AFTER 24 HOURS, INCUBATION TO CONTINUE FOR 4 DAYS. 05/22/17 15:00 Blood - Peripheral Venous Blood Culture - Preliminary NO GROWTH OBTAINED AFTER 24 HOURS, INCUBATION TO CONTINUE FOR 4 DAYS. Laboratory Tests 05/23/17 05/24/17 05/24/17 05:05 05:10 05:10 WBC 5.2 Hgb 7.8 L Hct 24.9 L Plt Count 227 INR BUN 21 H D Creatinine 0.8 C-Reactive Protein 12.0 H 7.1 H D 05/24/17 05:10 WBC Hgb Hct Plt Count INR 2.73 H BUN Creatinine C-Reactive Protein Assessment Ischemic colitis related to ? constitipation severe Atrial fibrillation Coagulapathy Compression fracture fall Myeloproliferative disorder Malt Lymphoma Plan Discussed with hospitalist Can stop metronidazole Continue PIP TAZO through the weekend Critical care time spent YES ( 38 minutes) Rosa PIERSON
--- NOTE | 2017-05-24 07:48 | PN ---
Physical Exam: SUBJECTIVE: 86 year old female with a past medical history of hypertension, atrial fibrillation, GERD, myeloproliferative disease with frequent transfusions, and lymphoma on radiation therapy was admitted to the hospital s/p fall with a T12 compression fracture in the ICU for acute onset abdominal pain suggestive of ischemic colitis and superimposed peritonitis. She is on flagyl zosyn coverage. She is DNR/DNI and refuses surgical management. Today she feels better with improving abdominal pain and minimal back pain. Had 2 non-bloody BM this morning. Denies chest pain, SOB, n/v/d. OBJECTIVE: Vital Signs Period Temp Pulse Resp BP Sys/Conde Pulse Ox Last 24 Hr 97.5 F-98.4 F 48-60 18-20 126-143/41-58 96-98 GENERAL: The patient is awake, alert, and fully oriented, in no acute distress. HEAD: Normal with no signs of trauma. EYES: PERRL, extraocular movements intact, sclera anicteric, conjunctiva clear. No ptosis. ENT: Ears normal, nares patent, oropharynx clear without exudates, moist mucous membranes. NECK: Trachea midline, full range of motion, supple. LUNGS: Breath sounds equal, clear to auscultation bilaterally, no wheezes, no crackles, no accessory muscle use. HEART: Regular rate and rhythm, S1, S2 without murmur, rub or gallop. ABDOMEN: Soft, mild tenderness elicited from, nondistended, normoactive bowel sounds, no guarding, no rebound, no hepatosplenomegaly, no masses. EXTREMITIES: 2+ pulses, warm, well-perfused, no edema. NEUROLOGICAL: Cranial nerves II through XII grossly intact. Normal speech, gait not observed. PSYCH: Normal mood, normal affect. SKIN: Warm, dry, normal turgor, no rashes or lesions noted CBC, BMP 05/24/17 05:10 05/24/17 05:10 INR, PTT INR 2.73 (0.82-1.09) H 05/24/17 05:10 Active Medications Generic Name Dose Route Start Last Admin Trade Name Freq PRN Reason Stop Dose Admin Amlodipine Besylate 10 mg 05/23/17 10:00 05/23/17 09:55 Norvasc - PO 10 mg DAILY MARGARITA Administration Cholecalciferol 2,000 unit 05/23/17 10:00 05/23/17 09:53 Vitamin D3 - PO 2,000 unit DAILY MARGARITA Administration Enoxaparin Sodium 60 mg 05/23/17 22:00 05/23/17 22:04 Lovenox - SQ 60 mg Q12H MARGARITA Administration Piperacillin Sod/Tazobactam Sod 50 mls @ 100 mls/hr 05/22/17 18:30 05/24/17 03: 00 Zosyn 3.375gm Ivpb (Pre-Docked) IVPB 100 mls/hr Q8H-IV MARGARITA Administration Metronidazole 100 mls @ 100 mls/hr 05/23/17 10:00 05/24/17 03:30 Flagyl 500mg Premixed Ivpb - IVPB 100 mls/hr Q8H-IV MARGARITA Administration Dextrose/Sodium Chloride 1,000 mls @ 100 mls/hr 05/23/17 09:45 05/23/17 09:52 D5-Ns - IV 100 mls/hr ASDIR MARGARITA Administration Pantoprazole Sodium 100 mls @ 200 mls/hr 05/23/17 11:00 05/23/17 12:29 Protonix 40mg Ivpb (Pre-Docked) IVPB 200 mls/hr DAILY MARGARITA Administration Lidocaine 1 patch 05/23/17 10:00 05/23/17 09:53 Lidoderm Patch - TP 1 patch DAILY MARGARITA Administration Lidocaine/Aluminum/Magnesium/Simeth 15 ml 05/23/17 12:00 05/24/17 06:46 Magic Mouthwash *Sjr Formula* - MM Not Given Q6HPO MARGARITA Lorazepam 1 mg 05/23/17 22:00 05/23/17 22:06 Ativan - PO 05/23/17 22:01 1 mg ONCE ONE Administration Metoprolol Tartrate 5 mg 05/22/17 14:52 Lopressor Injection - IVPUSH Q15M PRN HYPERTENSION Miscellaneous 1 each 05/23/17 22:00 05/23/17 22:04 Lidoderm Patch Removal MC 1 each DAILY@2200 MARGARITA Administration Morphine Sulfate 2 mg 05/23/17 09:46 05/23/17 10:21 Morphine Injection - IVPUSH 05/24/17 09:45 2 mg Q6H PRN Administration PAIN Non-Formulary Medication 1 each 05/23/17 10:00 Patient's Own Med NR DAILY MARGARITA Sotalol HCl 80 mg 05/23/17 12:00 05/23/17 11:12 Betapace - PO 80 mg DAILY@1200 MARGARITA Administration Sotalol HCl 120 mg 05/23/17 22:00 05/23/17 22:04 Betapace - PO 120 mg HS MARGARITA Administration Sotalol HCl 40 mg 05/24/17 07:00 05/24/17 06:54 Betapace - PO 40 mg AM MARGARITA Administration ASSESSMENT/PLAN: 86 year old female pmh HTN, afib, GERD, myeloproliferative dz, lymphoma with improved ischemic colitis with concomitant bacterial peritonitis Neuro: T12 compression fracture causing moderate pain -morphine 2mg PRN -care when moving patient due to pain -lorazepam PRN anxiety Cardiac: pt has bradycardia (HR 55) likely 2/2 pain medications and benzo. -hx of hypertension and atrial fibrillation. Currently normotensive -hold rate controlling medications Heme/Onc: supratherapeutic INR 2/2 infection vs ischemia - INR 2.73 today -hold warfarin -hx of myeloproliferative dz, lymphoma on radiation therapy, hx of coumadin use for afib Gastrointestinal: ischemic colitis with possible overlying bacterial peritonitis -continue medical management of pain with morphine Q6h PRN -maintain therapeutic INR -continue metronidazole 500mg IV in 100ml @ 100ml/hr -continue piperacillin/tazobactam 3.375mg IV 50ml @ 100ml/hr -cont pantoprazole 40mg for GERD : logan was removed yesterday -monitor urine output FEN: pt mildly hypokalemic -give 40mEq KCl -continue NS 1L @ 100ml/hr with dextrose -Pt is NPO Dispo: -pt is DNR/DNI -continue to medically manage -transfer to telemetry on 4th floor Problem List - Problems (1) Acute abdomen Code(s): R10.0 - ACUTE ABDOMEN (2) Compression fracture of lumbar vertebra Code(s): S32.000A - WEDGE COMPRESSION FRACTURE OF UNSP LUMBAR VERTEBRA, INIT Qualifiers: Encounter type: initial encounter Fracture type: closed Qualified Code(s): S32.000A - Wedge compression fracture of unspecified lumbar vertebra, initial encounter for closed fracture (3) Ischemic colitis Code(s): K55.9 - VASCULAR DISORDER OF INTESTINE, UNSPECIFIED (4) Peritonitis Code(s): K65.9 - PERITONITIS, UNSPECIFIED Visit type - Emergency Visit Emergency Visit: No - New Patient This patient is new to me today: No - Critical Care Critical Care patient: Yes Total Critical Care Time (in minutes): 45 Critical Care Statement: The care of this patient involved high complexity decision making to prevent further life threatening deterioration of the patient 's condition and/or to evalute & treat vital organ system(s) failure or risk of failure.
[2017-05-24] MEDS ORDERED: POTASSIUM CHLORIDE TABS 20 MEQ TABLET.ER (FP) PO ONE (09:15)
[2017-05-24] MEDS ORDERED: PT OWN MED DRAWER 7, Y5N ONE ×2 (09:24→13:39)
[2017-05-24] MEDS: DEXTROSE 5%-NORMAL SALINE 1,000 ML IV SCH (09:27)
[2017-05-24] MEDS: LIDOCAINE 5% TOPICAL PATCH TP SCH (09:27)
[2017-05-24] MEDS: amLODIPine BESYLATE 10 MG TABLET (FP) PO SCH (09:27)
[2017-05-24] MEDS: CHOLECALCIFEROL (VITAMIN D3) 1,000 UNIT TABLET (FP) PO SCH (09:28)
[2017-05-24] MEDS: ENOXAPARIN NA (PORCINE) 60 MG/0.6 ML DISP.SYRIN SQ SCH (09:28)
[2017-05-24 10:00] LABS: MAGNESIUM 2.1 mg/dL (1.8-2.4)
--- NOTE | 2017-05-24 10:07 | PN ---
Physical Exam: SUBJECTIVE: Patient seen and examined. She says the abdominal pain is much improved. Had a bowel movement with formed stool. Hoping to begin clear fluids. Wants to resume her home clonazepam instead of ativan. OBJECTIVE: Vital Signs Period Temp Pulse Resp BP Sys/Conde Pulse Ox Last 24 Hr 98 F-98.4 F 48-63 18-20 126-147/41-58 96-98 GENERAL: The patient is awake, alert, and fully oriented, in no acute distress. LUNGS: Breath sounds equal, clear to auscultation bilaterally, no wheezes, no crackles, no accessory muscle use. HEART: Regular rate and rhythm, S1, S2 ABDOMEN: Soft, distended nontender, normoactive bowel sounds, no guarding, no rebound, no hepatosplenomegaly, no masses. EXTREMITIES: 2+ pulses, warm, well-perfused, no edema. Laboratory Results - last 24 hr 05/24/17 05/24/17 05/24/17 05:10 05:10 05:10 WBC 5.2 RBC 3.17 L Hgb 7.8 L Hct 24.9 L MCV 78.5 L MCH 24.7 L MCHC 31.5 L RDW 18.4 H Plt Count 227 MPV 8.7 Neutrophils % 79.0 Lymphocytes % 7.7 L D Monocytes % 10.5 H Eosinophils % 2.3 D Basophils % 0.5 ESR 18 INR Sodium 142 Potassium 3.1 L Chloride 111 H Carbon Dioxide 23 Anion Gap 8 BUN 21 H D Creatinine 0.8 Creat Clearance w eGFR > 60 Random Glucose 164 H D Calcium 7.7 L Magnesium 2.1 Total Bilirubin 0.6 AST 22 D ALT 23 D Alkaline Phosphatase 91 D C-Reactive Protein 7.1 H D Total Protein 4.4 L Albumin 2.4 L 05/24/17 05/24/17 05:10 09:20 WBC RBC Hgb Hct MCV MCH MCHC RDW Plt Count MPV Neutrophils % Lymphocytes % Monocytes % Eosinophils % Basophils % ESR INR 2.73 H Sodium Potassium Chloride Carbon Dioxide Anion Gap BUN Creatinine Creat Clearance w eGFR Random Glucose Calcium Magnesium Cancelled Total Bilirubin AST ALT Alkaline Phosphatase C-Reactive Protein Total Protein Albumin Active Medications Generic Name Dose Route Start Last Admin Trade Name Freq PRN Reason Stop Dose Admin Amlodipine Besylate 10 mg 05/23/17 10:00 05/24/17 09:27 Norvasc - PO 10 mg DAILY MARGARITA Administration Cholecalciferol 2,000 unit 05/23/17 10:00 05/24/17 09:28 Vitamin D3 - PO 2,000 unit DAILY MARGARITA Administration Enoxaparin Sodium 60 mg 05/23/17 22:00 05/24/17 09:28 Lovenox - SQ 60 mg Q12H MARGARITA Administration Piperacillin Sod/Tazobactam Sod 50 mls @ 100 mls/hr 05/22/17 18:30 05/24/17 09: 28 Zosyn 3.375gm Ivpb (Pre-Docked) IVPB 100 mls/hr Q8H-IV MARGARITA Administration Dextrose/Sodium Chloride 1,000 mls @ 100 mls/hr 05/23/17 09:45 05/24/17 09:27 D5-Ns - IV 100 mls/hr ASDIR MARGARITA Administration Pantoprazole Sodium 100 mls @ 200 mls/hr 05/23/17 11:00 05/23/17 12:29 Protonix 40mg Ivpb (Pre-Docked) IVPB 200 mls/hr DAILY MARGARITA Administration Lidocaine 1 patch 05/23/17 10:00 05/24/17 09:27 Lidoderm Patch - TP 1 patch DAILY MARGARITA Administration Lidocaine/Aluminum/Magnesium/Simeth 15 ml 05/23/17 12:00 05/24/17 06:46 Magic Mouthwash *Sjr Formula* - MM Not Given Q6HPO MARGARITA Metoprolol Tartrate 5 mg 05/22/17 14:52 Lopressor Injection - IVPUSH Q15M PRN HYPERTENSION Miscellaneous 1 each 05/23/17 22:00 05/23/17 22:04 Lidoderm Patch Removal MC 1 each DAILY@2200 MARGARITA Administration Non-Formulary Medication 1 each 05/23/17 10:00 Patient's Own Med NR DAILY MARGARITA Sotalol HCl 80 mg 05/23/17 12:00 05/23/17 11:12 Betapace - PO 80 mg DAILY@1200 MARGARITA Administration Sotalol HCl 120 mg 05/23/17 22:00 05/23/17 22:04 Betapace - PO 120 mg HS MARGARITA Administration Sotalol HCl 40 mg 05/24/17 07:00 05/24/17 06:54 Betapace - PO 40 mg AM MARGARITA Administration ASSESSMENT/PLAN: ischemic colitis, improving Discussed with primary team about starting clear fluids and stopping fluids. Management of anxiolytic therapy per primary team Visit type - Emergency Visit Emergency Visit: No - New Patient This patient is new to me today: No - Critical Care Critical Care patient: No - Discharge Referral Referred to [facility] Med P.C.: No
--- NOTE | 2017-05-24 10:27 | PN ---
Progress Note (short form) - Note Progress Note: S: 86 year old female with known case of hypertension, paroxysmal atrial fibrillation, myelodysplastic syndrome, thrombocytosis, anemia, Tucker's thyroiditis, history of IBS, anxiety disorder, and depression. Admitted with a history of a fall and had been complaining of constipation and received multiple laxatives and developed an acute abdomen, after she had an episode of diarrhea. Since yesterday, the patient has shown decreasing abdominal pain and now has had a normal BM. No history of palpitations, chest pain or discomfort. No dyspnea, PND, or orthopnea reported. Patient complains of significant fatigue. Remains in sinus rhythm. Active Medications Generic Name Dose Route Start Last Admin Trade Name Freq PRN Reason Stop Dose Admin Amlodipine Besylate 10 mg 05/23/17 10:00 05/24/17 09:27 Norvasc - PO 10 mg DAILY MARGARITA Administration Cholecalciferol 2,000 unit 05/23/17 10:00 05/24/17 09:28 Vitamin D3 - PO 2,000 unit DAILY MARGARITA Administration Piperacillin Sod/Tazobactam Sod 50 mls @ 100 mls/hr 05/22/17 18:30 05/24/17 09: 28 Zosyn 3.375gm Ivpb (Pre-Docked) IVPB 100 mls/hr Q8H-IV MARGARITA Administration Dextrose/Sodium Chloride 1,000 mls @ 100 mls/hr 05/23/17 09:45 05/24/17 09:27 D5-Ns - IV 100 mls/hr ASDIR MARGARITA Administration Pantoprazole Sodium 100 mls @ 200 mls/hr 05/23/17 11:00 05/23/17 12:29 Protonix 40mg Ivpb (Pre-Docked) IVPB 200 mls/hr DAILY MARGARITA Administration Lidocaine 1 patch 05/23/17 10:00 05/24/17 09:27 Lidoderm Patch - TP 1 patch DAILY MARGARITA Administration Lidocaine/Aluminum/Magnesium/Simeth 15 ml 05/23/17 12:00 05/24/17 06:46 Magic Mouthwash *Sjr Formula* - MM Not Given Q6HPO MARGARITA Miscellaneous 1 each 05/23/17 22:00 05/23/17 22:04 Lidoderm Patch Removal MC 1 each DAILY@2200 MARGARITA Administration Non-Formulary Medication 1 each 05/23/17 10:00 Patient's Own Med NR DAILY MARGARITA Sotalol HCl 80 mg 05/23/17 12:00 05/23/17 11:12 Betapace - PO 80 mg DAILY@1200 MARGARITA Administration Sotalol HCl 120 mg 05/23/17 22:00 05/23/17 22:04 Betapace - PO 120 mg HS MARGARITA Administration Sotalol HCl 40 mg 05/24/17 07:00 05/24/17 06:54 Betapace - PO 40 mg AM MARGARITA Administration Warfarin Sodium 1 mg 05/24/17 18:00 Coumadin - PO 05/24/17 18:01 ONCE@1800 ONE O: 86 year old male/female was in no acute distress. Pallor + No cyanosis, clubbing, or jaundice. Last Vital Signs Temp Pulse Resp BP Pulse Ox 98.2 F 63 18 147/53 96 05/24/17 06:00 05/24/17 08:00 05/24/17 08:00 05/24/17 08:00 05/24/17 08:18 NECK: Supple, no JVD, negative HJR, carotids were equal and upstrokes were normal, no thyromegaly appreciated. HEART: PMI was in the 5th intercostal space, no heaves or thrills, S1 and S2 were normal. Non ejection systolic click along the left sternal border and apex. No murmur or gallops were heard. LUNGS: Clear on auscultation bilaterally. ABDOMEN: Distended, mild diffuse tenderness, no rebound tenderness, no hepatosplenomegaly appreciated, and no palpable masses were felt. Bowel sounds were heard. EXTREMITIES: No calf tenderness or dependent edema. Pulses are normal. CBC, BMP 05/24/17 05:10 05/24/17 05:10 Laboratory Results - last 24 hr 05/24/17 05/24/17 05/24/17 05:10 05:10 05:10 WBC 5.2 RBC 3.17 L Hgb 7.8 L Hct 24.9 L MCV 78.5 L MCH 24.7 L MCHC 31.5 L RDW 18.4 H Plt Count 227 MPV 8.7 Neutrophils % 79.0 Lymphocytes % 7.7 L D Monocytes % 10.5 H Eosinophils % 2.3 D Basophils % 0.5 ESR 18 INR Sodium 142 Potassium 3.1 L Chloride 111 H Carbon Dioxide 23 Anion Gap 8 BUN 21 H D Creatinine 0.8 Creat Clearance w eGFR > 60 Random Glucose 164 H D Calcium 7.7 L Magnesium 2.1 Total Bilirubin 0.6 AST 22 D ALT 23 D Alkaline Phosphatase 91 D C-Reactive Protein 7.1 H D Total Protein 4.4 L Albumin 2.4 L 05/24/17 05/24/17 05:10 09:20 WBC RBC Hgb Hct MCV MCH MCHC RDW Plt Count MPV Neutrophils % Lymphocytes % Monocytes % Eosinophils % Basophils % ESR INR 2.73 H Sodium Potassium Chloride Carbon Dioxide Anion Gap BUN Creatinine Creat Clearance w eGFR Random Glucose Calcium Magnesium Cancelled Total Bilirubin AST ALT Alkaline Phosphatase C-Reactive Protein Total Protein Albumin Impression: 1. Hypertension, hypertensive cardiovascular disease. Currently normotensive. 2. History of paroxysmal atrial fibrillation. 3. Auscultatory finding suggestive of mitral valve prolapse. 4. Fatigue, probably related to anemia. 5. Myelodysplastic syndrome. 6. History of thrombocytosis, currently corrected. 7. History of Tucker's thyroiditis. 8. Acute abdomen, resolving. Recommendations: 1. Continue current cardiac medications. 2. Consider correction of anemia after consultation with hematology. 3. Increase ambulation. 4. Close follow up of INR and consider resumption of Coumadin if agreed upon by hematology. Documentation prepared by Darcy Williamson, acting as a medical records receptionist for Robert Loaiza MD. Problem List - Problems (1) Acute abdomen Code(s): R10.0 - ACUTE ABDOMEN (2) Hypertension Code(s): I10 - ESSENTIAL (PRIMARY) HYPERTENSION (3) A-fib Code(s): I48.91 - UNSPECIFIED ATRIAL FIBRILLATION Qualifiers: Atrial fibrillation type: paroxysmal Qualified Code(s): I48.0 - Paroxysmal atrial fibrillation (4) History of Tucker thyroiditis Code(s): Z86.39 - PERSONAL HISTORY OF ENDO, NUTRITIONAL AND METABOLIC DISEASE (5) Mitral valve prolapse syndrome Code(s): I34.1 - NONRHEUMATIC MITRAL (VALVE) PROLAPSE (6) Anemia Code(s): D64.9 - ANEMIA, UNSPECIFIED
[2017-05-24] MEDS: PANTOPRAZOLE SODIUM 100 ML IVPB SCH (10:33)
[2017-05-24] MEDS ORDERED: morphine CARPU-JECT 2 MG/1 ML DISP.SYRIN IVPUSH PRN (10:51)
[2017-05-24] MEDS: SOTALOL HCL 80 MG TABLET (FP) PO SCH ×2 (11:06→21:38)
--- NOTE | 2017-05-24 11:58 | PN ---
Teaching Attending Note Name of Resident: Mervin Carpenter ATTENDING PHYSICIAN STATEMENT I saw and evaluated the patient. I reviewed the resident's note and discussed the case with the resident. I agree with the resident's findings and plan as documented. SUBJECTIVE: Patient seen and examined in the ICU. Awake and alert. Remains NPO. Some mild improvement in abdominal pain. (+) Loose stools x 3 reported. Denies CP or SOB. Intake & Output 05/21/17 05/22/17 05/23/17 05/24/17 23:59 23:59 23:59 23:59 Intake Total 1468 2120 1600 800 Output Total 2500 900 Balance 1468 -380 700 800 Weight 126 lb 11.2 oz 124 lb 12.506 oz Last Vital Signs Temp Pulse Resp BP Pulse Ox 98.5 F 60 18 141/53 96 05/24/17 10:00 05/24/17 10:00 05/24/17 10:00 05/24/17 10:00 05/24/17 08:18 Active Medications Amlodipine Besylate (Norvasc -) 10 mg PO DAILY MARGARITA Last Admin: 05/24/17 09:27 Dose: 10 mg Cholecalciferol (Vitamin D3 -) 2,000 unit PO DAILY MARGARITA Last Admin: 05/24/17 09:28 Dose: 2,000 unit Piperacillin Sod/Tazobactam Sod (Zosyn 3.375gm Ivpb (Pre-Docked)) 50 mls @ 100 mls/hr IVPB Q8H-IV MARGARITA Last Admin: 05/24/17 09:28 Dose: 100 mls/hr Dextrose/Sodium Chloride (D5-Ns -) 1,000 mls @ 100 mls/hr IV ASDIR MARGARITA Last Admin: 05/24/17 09:27 Dose: 100 mls/hr Pantoprazole Sodium (Protonix 40mg Ivpb (Pre-Docked)) 100 mls @ 200 mls/hr IVPB DAILY MARGARITA Last Admin: 05/24/17 10:33 Dose: 200 mls/hr Lidocaine (Lidoderm Patch -) 1 patch TP DAILY MARGARITA Last Admin: 05/24/17 09:27 Dose: 1 patch Lidocaine/Aluminum/Magnesium/Simeth (Magic Mouthwash *Sjr Formula* -) 15 ml MM Q6HPO MARGARITA Last Admin: 05/24/17 11:06 Dose: 15 ml Miscellaneous (Lidoderm Patch Removal) 1 each MC DAILY@2200 [facility] Last Admin: 05/23/17 22:04 Dose: 1 each Morphine Sulfate (Morphine Injection -) 2 mg IVPUSH Q4H PRN PRN Reason: PAIN Last Admin: 05/24/17 10:45 Dose: 2 mg Non-Formulary Medication (Patient's Own Med) 1 each NR DAILY [facility] Sotalol HCl (Betapace -) 80 mg PO DAILY@1200 [facility] Last Admin: 05/24/17 11:06 Dose: 80 mg Sotalol HCl (Betapace -) 120 mg PO HS [facility] Last Admin: 05/23/17 22:04 Dose: 120 mg Sotalol HCl (Betapace -) 40 mg PO AM [facility] Last Admin: 05/24/17 06:54 Dose: 40 mg Warfarin Sodium (Coumadin -) 1 mg PO ONCE@1800 ONE Stop: 05/24/17 18:01 Gen: Awake and alert, mildly uncomfortable with movement Heart: S1S2 regular Lung: decreased breath sounds at the bases Abd: softly distended, (+) Mild diffuse tenderness to palpation, (+) guarding Ext: no edema Neuro: Non-focal Laboratory Results - last 24 hr 05/24/17 05/24/17 05/24/17 05:10 05:10 05:10 WBC 5.2 RBC 3.17 L Hgb 7.8 L Hct 24.9 L MCV 78.5 L MCH 24.7 L MCHC 31.5 L RDW 18.4 H Plt Count 227 MPV 8.7 Neutrophils % 79.0 Lymphocytes % 7.7 L D Monocytes % 10.5 H Eosinophils % 2.3 D Basophils % 0.5 ESR 18 INR Sodium 142 Potassium 3.1 L Chloride 111 H Carbon Dioxide 23 Anion Gap 8 BUN 21 H D Creatinine 0.8 Creat Clearance w eGFR > 60 Random Glucose 164 H D Calcium 7.7 L Magnesium 2.1 Total Bilirubin 0.6 AST 22 D ALT 23 D Alkaline Phosphatase 91 D C-Reactive Protein 7.1 H D Total Protein 4.4 L Albumin 2.4 L 05/24/17 05/24/17 05:10 09:20 WBC RBC Hgb Hct MCV MCH MCHC RDW Plt Count MPV Neutrophils % Lymphocytes % Monocytes % Eosinophils % Basophils % ESR INR 2.73 H Sodium Potassium Chloride Carbon Dioxide Anion Gap BUN Creatinine Creat Clearance w eGFR Random Glucose Calcium Magnesium Cancelled Total Bilirubin AST ALT Alkaline Phosphatase C-Reactive Protein Total Protein Albumin ASSESSMENT AND PLAN: Acute Abdomen Suspected Ischemic Colitis Atrial Fibrillation Myeloproliferative Disorder Anemia Lymphoma HTN GERD - ABX per ID - IVF - Pain control - GI follow up noted - NPO per Surgery - Rate control - AC for INR 2-3 - DNR/DNI Dr Zuleta Critical care time spent in reviewing chart, evaluating patient and formulating plan 35 min
[2017-05-24] MEDS ORDERED: DEXTROSE 5%-NORMAL SALINE 1,000 ML IV SCH (12:06)
--- NOTE | 2017-05-24 13:13 | PN ---
Progress Note (short form) - Note Progress Note: surgery Pt seen and examined. feels well. no pain. no fever. bm. afebrile abd- soft, mild left sided tendereness Plan- improving colitis. consider liquids tomorrow if improvement continues. pt is not toxic.
--- NOTE | 2017-05-24 13:56 | PN ---
Progress Note (short form) - Note Progress Note: Patients seen and examined. She feels that she has improved slightly when compared to yesterday. She had BM x 3. General: appears in pain Extremities: No pallor or icterus, no pedal edema. Chest:CTA b/l Abdomen: mild tenderness noted ,left side. No guarding noted Neuro: Alert, oriented, non-focal. CVS: Normal sinus rhythm, S1, S2, no gallop or murmur. H and N: R parotid mass palpable Last Vital Signs Temp Pulse Resp BP Pulse Ox 98.5 F 70 18 132/49 96 05/24/17 10:00 05/24/17 13:35 05/24/17 13:35 05/24/17 13:35 05/24/17 08:18 Current Medications Generic Name Dose Route Start Last Admin Trade Name Freq PRN Reason Stop Dose Admin Amlodipine Besylate 10 mg 05/25/17 10:00 Norvasc - PO DAILY MARGARITA Cholecalciferol 2,000 unit 05/25/17 10:00 Vitamin D3 - PO DAILY MARGARITA Dextrose/Sodium Chloride 1,000 mls @ 100 mls/hr 05/24/17 12:06 D5-Ns - IV ASDIR MARGARITA Pantoprazole Sodium 100 mls @ 200 mls/hr 05/25/17 10:00 Protonix 40mg Ivpb (Pre-Docked) IVPB DAILY MARGARITA Piperacillin Sod/Tazobactam Sod 50 mls @ 100 mls/hr 05/24/17 18:00 Zosyn 3.375gm Ivpb (Pre-Docked) IVPB Q8H-IV MARGARITA Lidocaine 1 patch 05/25/17 10:00 Lidoderm Patch - TP DAILY MARGARITA Lidocaine/Aluminum/Magnesium/Simeth 15 ml 05/24/17 18:00 Magic Mouthwash *Sjr Formula* - MM Q6HPO MARGARITA Miscellaneous 1 each 05/24/17 22:00 Lidoderm Patch Removal MC DAILY@2200 MARGARITA Miscellaneous 1 each 05/24/17 22:00 Lidoderm Patch Removal MC DAILY@2200 MARGARITA Morphine Sulfate 2 mg 05/24/17 12:06 Morphine Injection - IVPUSH Q4H PRN PAIN Morphine Sulfate 2 mg 05/24/17 13:39 Morphine Injection - IVPUSH 05/25/17 13:38 Q4H PRN PAIN Non-Formulary Medication 1 each 05/25/17 10:00 Patient's Own Med NR DAILY MARGARITA Sotalol HCl 120 mg 05/24/17 22:00 Betapace - PO HS MARGARITA Sotalol HCl 40 mg 05/25/17 07:00 Betapace - PO AM MARGARITA Sotalol HCl 80 mg 05/25/17 12:00 Betapace - PO DAILY@1200 MARGARITA Warfarin Sodium 1 mg 05/24/17 18:00 Coumadin - PO 05/24/17 18:01 ONCE@1800 ONE CBC, BMP 05/24/17 05:10 05/24/17 05:10 INR, PTT INR 2.73 (0.82-1.09) H 05/24/17 05:10 Assessment/Plan: Suspected ischemic colitis: -on conservative management with improvement, likely to start clears tomorrow -White count normalized -appreciate GI and surgery follow-up and ICU level care -stool c diff pending Coagulopathy: -now inr therapeutic -restarted coumadin from tonight -inr monitoring anemia: -will hold off on transfusion or procrit for now -will monitor cbc in the am -will re-start Hydrea if the platelet count trends up around 500-600. MALT lymphoma of the Parotid: -Receiving RT as an OP. h/o Burnt ET -received procrit on 05/18/2017 Iron overload: -to be monitored, presently on no treatment Back pain from Compression fracture: -seen by Neurosurgery -conservative management Will follow closely
--- NOTE | 2017-05-24 14:00 | PN ---
GI Progress Note Subjective: No acute events Overall Ms. Lai states feeling better, to the point where she was able to apply her own make-up Also describes having a formed BM yesterday - Objective Vital Signs: Vital Signs Temperature 98.5 F 05/24/17 10:00 Pulse Rate 70 05/24/17 13:35 Respiratory Rate 18 05/24/17 13:35 Blood Pressure 132/49 05/24/17 13:35 O2 Sat by Pulse Oximetry (%) 96 05/24/17 08:18 Constitutional: Calm Eyes: No: Sclera Icterus Cardiovascular: Yes: Regular Rate and Rhythm, Murmur Respiratory: Yes: CTA Bilaterally Gastrointestinal Inspection: Yes: Distention (mildly protuberant abdomen) ...Auscultate: Yes: Normoactive Bowel Sounds (somewhat higher pitched on the right side) ...Palpate: Yes: Tenderness (Mild TTP Left abdomen, improved from previous) ...Percussion: No: Tympanitic Edema: Yes Edema: LLE: Trace, RLE: Trace Neurological: Yes: Alert Labs: CBC, BMP 05/24/17 05:10 05/24/17 05:10 INR, PTT INR 2.73 (0.82-1.09) H 05/24/17 05:10 Microbiology 05/24/17 09:00 Stool Clostridium difficile Antigen (ELLIOT) - Negative 05/24/17 09:00 Stool Clostridium difficile Toxin Assay - Negative Problem List - Problems (1) Ischemic colitis Assessment/Plan: Clinically much improved Agree w/ surgical input with advancement to clears tomorrow if continued improvement Reviewed Dr. Mckinley's GI resident follow-up note today. Anxiolytic therapy management per primary team Code(s): K55.9 - VASCULAR DISORDER OF INTESTINE, UNSPECIFIED
--- NOTE | 2017-05-24 15:02 | PN ---
Teaching Attending Note Name of Resident: Maryse Hung ATTENDING PHYSICIAN STATEMENT I saw and evaluated the patient. I reviewed the resident's note and discussed the case with the resident. I agree with the resident's findings and plan as documented. SUBJECTIVE: Patient is feeling better improving. Had BM last night , pain is improving less pain than yesterday. Feels happy today. OBJECTIVE: Vital Signs Temperature 98.5 F 05/24/17 10:00 Pulse Rate 70 05/24/17 13:35 Respiratory Rate 18 05/24/17 13:35 Blood Pressure 132/49 05/24/17 13:35 O2 Sat by Pulse Oximetry (%) 96 05/24/17 08:18 CBCD WBC 5.2 K/mm3 (4.0-10.0) 05/24/17 05:10 RBC 3.17 M/mm3 (3.60-5.2) L 05/24/17 05:10 Hgb 7.8 GM/dL (10.7-15.3) L 05/24/17 05:10 Hct 24.9 % (32.4-45.2) L 05/24/17 05:10 MCV 78.5 fl (80-96) L 05/24/17 05:10 MCHC 31.5 g/dl (32.0-36.0) L 05/24/17 05:10 RDW 18.4 % (11.6-15.6) H 05/24/17 05:10 Plt Count 227 K/MM3 (134-434) 05/24/17 05:10 MPV 8.7 fl (7.5-11.1) 05/24/17 05:10 CMP Sodium 142 mmol/L (136-145) 05/24/17 05:10 Potassium 3.1 mmol/L (3.5-5.1) L 05/24/17 05:10 Chloride 111 mmol/L (98-107) H 05/24/17 05:10 Carbon Dioxide 23 mmol/L (21-32) 05/24/17 05:10 Anion Gap 8 (8-16) 05/24/17 05:10 BUN 21 mg/dL (7-18) H D 05/24/17 05:10 Creatinine 0.8 mg/dL (0.55-1.02) 05/24/17 05:10 Creat Clearance w eGFR > 60 (>60) 05/24/17 05:10 Random Glucose 164 mg/dL (74-106) H D 05/24/17 05:10 Calcium 7.7 mg/dL (8.5-10.1) L 05/24/17 05:10 Total Bilirubin 0.6 mg/dL (0.2-1.0) 05/24/17 05:10 AST 22 U/L (15-37) D 05/24/17 05:10 ALT 23 U/L (12-78) D 05/24/17 05:10 Alkaline Phosphatase 91 U/L (45-117) D 05/24/17 05:10 Total Protein 4.4 g/dl (6.4-8.2) L 05/24/17 05:10 Albumin 2.4 g/dl (3.4-5.0) L 05/24/17 05:10 CARDIAC ENZYMES Creatine Kinase 39 IU/L (26-192) 05/22/17 13:42 Troponin I 0.02 ng/ml (0.00-0.05) 05/22/17 13:42 Current Medications Generic Name Dose Route Start Last Admin Trade Name Freq PRN Reason Stop Dose Admin Amlodipine Besylate 10 mg 05/25/17 10:00 Norvasc - PO DAILY [facility] Cholecalciferol 2,000 unit 05/25/17 10:00 Vitamin D3 - PO DAILY [facility] Dextrose/Sodium Chloride 1,000 mls @ 100 mls/hr 05/24/17 12:06 D5-Ns - IV ASDIR [facility] Pantoprazole Sodium 100 mls @ 200 mls/hr 05/25/17 10:00 Protonix 40mg Ivpb (Pre-Docked) IVPB DAILY [facility] Piperacillin Sod/Tazobactam Sod 50 mls @ 100 mls/hr 05/24/17 18:00 Zosyn 3.375gm Ivpb (Pre-Docked) IVPB Q8H-IV [facility] Lidocaine 1 patch 05/25/17 10:00 Lidoderm Patch - TP DAILY [facility] Lidocaine/Aluminum/Magnesium/Simeth 15 ml 05/24/17 18:00 Magic Mouthwash *Sjr Formula* - MM Q6HPO [facility] Miscellaneous 1 each 05/24/17 22:00 Lidoderm Patch Removal MC DAILY@2200 [facility] Morphine Sulfate 2 mg 05/25/17 12:06 Morphine Injection - IVPUSH Q4H PRN PAIN Morphine Sulfate 2 mg 05/24/17 13:39 Morphine Injection - IVPUSH 05/25/17 13:38 Q4H PRN PAIN Non-Formulary Medication 1 each 05/25/17 10:00 Patient's Own Med NR DAILY [facility] Sotalol HCl 120 mg 05/24/17 22:00 Betapace - PO HS [facility] Sotalol HCl 40 mg 05/25/17 07:00 Betapace - PO AM [facility] Sotalol HCl 80 mg 05/25/17 12:00 Betapace - PO DAILY@1200 [facility] Warfarin Sodium 1 mg 05/24/17 18:00 Coumadin - PO 05/24/17 18:01 ONCE@1800 [facility] Home Medications Medication Instructions Recorded Amlodipine Besylate [Norvasc -] 10 mg PO DAILY #0 tablet 05/13/13 Clonazepam [Klonopin] 0.5 mg PO BID 04/21/14 Hydroxyurea [Hydrea 500Mg Capsule 500 mg PO DAILY 04/21/14 -] Ranitidine [Zantac -] 150 mg PO BID 06/10/15 Sotalol HCl [Sotalol] 80 mg PO TID 06/10/15 Warfarin Na [Coumadin -] 4 mg PO DAILY 06/10/15 Cholecalciferol (Vitamin D3) 2,000 unit PO DAILY 03/22/16 [Vitamin D3] Epoetin Chris [Procrit] 0 unit IJ ASDIR 09/11/16 Cranberry 400 mg PO DAILY 02/21/17 Mag Hydrox/Alh/Smc/Dpha/Lido 15 ml MM Q6HPO #1 mouthwash 05/16/17 [Magic Mouthwash *Sjr Formula* -] Pot Sor/Hy-Ethylcel/Pvp/Hyalur 15 ml MM DAILY #1 gel.packet 05/16/17 [Gelclair Oral Gel Packet] Systane Ultra 0.4-0.3% Eye Drp TID 05/18/17 Microbiology 05/24/17 09:00 Stool Clostridium difficile Antigen (ELLIOT) - Final 05/24/17 09:00 Stool Clostridium difficile Toxin Assay - Final 05/22/17 15:00 Blood - Peripheral Venous Blood Culture - Preliminary NO GROWTH OBTAINED AFTER 24 HOURS, INCUBATION TO CONTINUE FOR 4 DAYS. 05/22/17 15:08 Blood - Peripheral Venous Blood Culture - Preliminary NO GROWTH OBTAINED AFTER 24 HOURS, INCUBATION TO CONTINUE FOR 4 DAYS. stool occult: Negative INR : 2.31--2.7 today PE: Abdomen: No guarding today. No tenderness today with hyperactive bowel sounds ASSESSMENT AND PLAN: 86 y/o lady with h/o Lymphoma on radiation , myelo-proliferative disease ,HTN , A fib on coumadin and other medical problems who presented after a mechanical fall. # Acute Colitis on CT scan. On IV Antibiotics Zosyn continue, s/p Flagyl discontinued today, patient is doing better. GI, Surgery and ID on the case. # T12 fracture- will stay away from Tylenol since can elevated INR. on Morphine prn. # s/p Supratherapeutic INR; improved now INR 2.7 , FFP if needed, s/p Vit K po 2.5mg x 1 ,INR is 2.3-->2.7 today, CBC 8.1--->7.8 today. # s/p BM today s/p supratherapeutic INR , no further black stools , low hemoglobin due to dilutional , protonix ggt. Hgb 8.1-->7.8 today. GI consult appreciated. # S/P acute constipation: s/p multiple bowel regimen was given . # Afib- rate controlled. cont. Sotatolol will give coumadin 1mg tonight, PT/INR in am DVT ppx- SCD. on lovenox with INR of 2.31--> 2.7 today patient is getting transferred from ICU to telemetry
[2017-05-24] MEDS ORDERED: WARFARIN NA 1 MG TABLET (FP) PO ONE ×2 (18:00)
--- NOTE | 2017-05-24 18:50 | PN ---
<Maryse Hung - Last Filed: 05/24/17 18:50> Physical Exam: SUBJECTIVE: Patient seen and examined this AM. Patient had episodes of formed BM. Looks happy, was putting makeup this morning. Abdominal pain has decreased. OBJECTIVE: Vital Signs Period Temp Pulse Resp BP Sys/Conde Pulse Ox Last 24 Hr 98 F-98.5 F 50-70 18-20 128-147/39-53 96-98 GENERAL: The patient is awake, alert, sitting upright in bed, not in distress, looks better than yesterday EYES: PERRL, extraocular movements intact ENT: Dry mucous membranes, R sided tongue bluish discoloration, R sided yellow circular tongue sores NECK: Neck was supple, not tender to palpation. Mildly limited ROM of neck, discomfort with movement LUNGS: Breath sounds equal, upper lung hernández were clear to auscultation bilaterally HEART: Bradycardic rate, regular rhythm, S1, S2 +2/6 systolic murmur heard best in the tricuspid region ABDOMEN: Protuberant abdomen which is unchanged, softer, no guarding, less TTP + very minimal if any rebound tenderness, normal bowel sounds EXTREMITIES: 2+ pulses, warm, well-perfused, no edema. Telangiectasias present on extremities. Tenderness to palpation of the mid/lower back. NEUROLOGICAL: Patient is oriented to person, place, and month. Cranial nerves II through XII were intact. Sensation was intact in the face and body bilaterally. Muscle strength was 5/5 in all extremities. Reflexes were 2+ in all extremities. FTN test was intact. Vibratory sensation and proprioception was intact. Gait was not observed. Laboratory Results - last 24 hr 05/21/17 05/24/17 05/24/17 14:20 05:10 05:10 WBC RBC Hgb Hct MCV MCH MCHC RDW Plt Count MPV Neutrophils % Lymphocytes % Monocytes % Eosinophils % Basophils % ESR 18 INR Sodium 142 Potassium 3.1 L Chloride 111 H Carbon Dioxide 23 Anion Gap 8 BUN 21 H D Creatinine 0.8 Creat Clearance w eGFR > 60 Random Glucose 164 H D Calcium 7.7 L Magnesium 2.1 Total Bilirubin 0.6 AST 22 D ALT 23 D Alkaline Phosphatase 91 D C-Reactive Protein 7.1 H D Total Protein 4.4 L Albumin 2.4 L Blood Type AB POSITIVE Antibody Screen Negative Crossmatch See Detail 05/24/17 05/24/17 05/24/17 05:10 05:10 09:20 WBC 5.2 RBC 3.17 L Hgb 7.8 L Hct 24.9 L MCV 78.5 L MCH 24.7 L MCHC 31.5 L RDW 18.4 H Plt Count 227 MPV 8.7 Neutrophils % 79.0 Lymphocytes % 7.7 L D Monocytes % 10.5 H Eosinophils % 2.3 D Basophils % 0.5 ESR INR 2.73 H Sodium Potassium Chloride Carbon Dioxide Anion Gap BUN Creatinine Creat Clearance w eGFR Random Glucose Calcium Magnesium Cancelled Total Bilirubin AST ALT Alkaline Phosphatase C-Reactive Protein Total Protein Albumin Blood Type Antibody Screen Crossmatch Active Medications Generic Name Dose Route Start Last Admin Trade Name Freq PRN Reason Stop Dose Admin Amlodipine Besylate 10 mg 05/25/17 10:00 Norvasc - PO DAILY [facility] Cholecalciferol 2,000 unit 05/25/17 10:00 Vitamin D3 - PO DAILY [facility] Dextrose/Sodium Chloride 1,000 mls @ 100 mls/hr 05/24/17 12:06 05/24/17 14:00 D5-Ns - IV 100 mls/hr ASDIR [facility] Administration Pantoprazole Sodium 100 mls @ 200 mls/hr 05/25/17 10:00 Protonix 40mg Ivpb (Pre-Docked) IVPB DAILY [facility] Piperacillin Sod/Tazobactam Sod 50 mls @ 100 mls/hr 05/24/17 18:00 05/24/17 17: 12 Zosyn 3.375gm Ivpb (Pre-Docked) IVPB 100 mls/hr Q8H-IV [facility] Administration Lidocaine 1 patch 05/25/17 10:00 Lidoderm Patch - TP DAILY [facility] Lidocaine/Aluminum/Magnesium/Simeth 15 ml 05/24/17 18:00 05/24/17 17:12 Magic Mouthwash *Sjr Formula* - MM 15 ml Q6HPO [facility] Administration Miscellaneous 1 each 05/24/17 22:00 Lidoderm Patch Removal MC DAILY@2200 [facility] Morphine Sulfate 2 mg 05/25/17 12:06 Morphine Injection - IVPUSH Q4H PRN PAIN Morphine Sulfate 2 mg 05/24/17 13:39 Morphine Injection - IVPUSH 05/25/17 13:38 Q4H PRN PAIN Non-Formulary Medication 1 each 05/25/17 10:00 Patient's Own Med NR DAILY [facility] Sotalol HCl 120 mg 05/24/17 22:00 Betapace - PO HS [facility] Sotalol HCl 40 mg 05/25/17 07:00 Betapace - PO AM [facility] Sotalol HCl 80 mg 05/25/17 12:00 Betapace - PO DAILY@1200 [facility] ASSESSMENT/PLAN: Patient is an 86yo F with PMHx of Afib on Coumadin, 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 She was brought by EMS after a mechanical fall and was admitted for r/ o bleed. She developed possible ischemic colitis and was transferred to the ICU for further management. # Suspected Acute Ischemic Colitis / Infectious Colitis - Patient likely lost fluids after episode of emesis and high volume diarrhea - Lactate negative, less likely severe infarction - Abdominal CT showed signs of colitis but no perforation, no pnuematosis, no obstruction, +ileus - As per ID, d/c'd Flagyl 500mg Q8 IV, continue Zosyn 3.75 Q8 IV to cover for possible infectious component to colitis, WBC trending down, afebrile - Pt remains on bowel rest (NPO), IVF NS 100mL/hr - Surgery states no intervention at this time - GI agrees with conservative therapy, continue NPO today, switch to clears tmrw if improves - Pt in ICU for higher level of care # Hx of Afib with Supratherapeutic INR - resolved (INR 2.73) - Could possibly be a combination of low PO intake + pain medications for back pain, given 2.5mg PO vit K x1 - Coumadin was held, pt had episode of dark brown emesis attributed to epithelial cell shedding, dark stool was only trace guiac positive, FOBT negative; no active bleeds - INR in therapeutic range, d/c'd Lovenox SQ and start low dose Coumadin 1mg QHS - Was on Sotalol 80mg PO TID for rate control, now changed regimen as per Cardiology: 40mg AM + 80mg afternoon + 120mg HS # Anemia - Patient has transfusion dependent anemia, maintained on Epo 1-2x weekly - S/p 1 unit PRBC, Hgb improved. Today Hgb 7.8, drop is likely partially due to dilutional, Heme/onc states no transfusion needed today - No signs of active bleeding at this time # S/p mechanical fall - Pt was on Couamdin, but CT scans of head and abd/pelvis ruled out any acute bleeds # Mild T12 Compression Fracture - Neurosurgery recommends conservative management, pain control, will reconsider brace - D/c'd Tylenol and Tramadol after INR jump - Pt on Lidocaine patch + 2mg Morphine IVpush Q4 PRN # Diarrhea - resolved - s/p aggressive bowel regimen - Ordered C.diff panel - negative # HTN - well controlled - Pt on Amlodipine and Sotalol PO - Pt on Lopressor 5mg IV push if SBP > 120 # Anxiety - Discontinued home clonazepam 0.5mg PO BID --> Lorazepam PRN # 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 - Pt has hx of transfusion dependent anemia, now maintained on Epo 1-2x weekly - Given Epo 40,000 U x1 in the hospital - Per Oncology, stopped hydroxyurea for PLT count, but will restart if PLTs are between 500-600 - Radiation treatment to be determined by oncology # 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 - Magic mouth wash 15cc S&S daily - Gelclair oral gel packet (patient's own medication) # Allergic Rhinitis - Ranitidine 150mg PO QD not necessary, no symptoms, will restart at discharge # F/E/N - Fluids: Pt was on D5NS, glucose elevated, changed to NS 100mL/hr, pt will start clears tomorrow - Electrolytes: Monitor CMP - Diet: NPO w/ exception for meds - may up to clears tomorrow if continues to improve # Prophylaxis - DVT: Pt now started on Coumadin - GI: On protonix drip - Deconditioning: PT will be deferred to when patient improves # Dispo - Pt now in ICU # Code Status - DNR/DNI - Verbal consent and signature obtained 05/22/17 PGY-[address] Hung Visit type - Emergency Visit Emergency Visit: No - New Patient This patient is new to me today: No - Critical Care Critical Care patient: No <Janeth Arias - Last Filed: 05/26/17 07:16> Physical Exam: SUBJECTIVE: Patient seen and examined OBJECTIVE: Vital Signs Period Temp Pulse Resp BP Sys/Conde Pulse Ox Last 24 Hr 97.5 F-98.7 F 51-59 16-20 128-166/53-72 GENERAL: The patient is awake, alert, and fully oriented, in no acute distress. HEAD: Normal with no signs of trauma. EYES: PERRL, extraocular movements intact, sclera anicteric, conjunctiva clear. No ptosis. ENT: Ears normal, nares patent, oropharynx clear without exudates, moist mucous membranes. NECK: Trachea midline, full range of motion, supple. LUNGS: Breath sounds equal, clear to auscultation bilaterally, no wheezes, no crackles, no accessory muscle use. HEART: Regular rate and rhythm, S1, S2 without murmur, rub or gallop. ABDOMEN: Soft, nontender, nondistended, normoactive bowel sounds, no guarding, no rebound, no hepatosplenomegaly, no masses. EXTREMITIES: 2+ pulses, warm, well-perfused, no edema. NEUROLOGICAL: Cranial nerves II through XII grossly intact. Normal speech, gait not observed. PSYCH: Normal mood, normal affect. SKIN: Warm, dry, normal turgor, no rashes or lesions noted Laboratory Results - last 24 hr 05/25/17 05/25/17 05/25/17 05:20 05:20 05:20 WBC 8.0 D RBC 3.50 L Hgb 8.9 L D Hct 27.5 L MCV 78.6 L MCH 25.5 L MCHC 32.4 RDW 18.3 H Plt Count 272 MPV 8.6 INR 3.94 H D Sodium 142 Potassium 3.7 Chloride 111 H Carbon Dioxide 23 Anion Gap 8 BUN 12 D Creatinine 0.6 D Creat Clearance w eGFR > 60 Random Glucose 95 D Calcium 7.7 L Total Bilirubin 0.9 D AST 23 ALT 22 Alkaline Phosphatase 95 Total Protein 4.9 L Albumin 2.6 L Active Medications Generic Name Dose Route Start Last Admin Trade Name Freq PRN Reason Stop Dose Admin Acetaminophen 650 mg 05/25/17 19:46 05/25/17 21:30 Tylenol - PO 650 mg Q4H PRN Administration FEVER OR PAIN Amlodipine Besylate 10 mg 05/25/17 10:00 05/25/17 10:28 Norvasc - PO 10 mg DAILY [facility] Administration Cholecalciferol 2,000 unit 05/25/17 10:00 05/25/17 10:28 Vitamin D3 - PO 2,000 unit DAILY [facility] Administration Pantoprazole Sodium 100 mls @ 200 mls/hr 05/25/17 10:00 05/25/17 11:31 Protonix 40mg Ivpb (Pre-Docked) IVPB 200 mls/hr DAILY [facility] Administration Piperacillin Sod/Tazobactam Sod 50 mls @ 100 mls/hr 05/24/17 18:00 05/26/17 03: 16 Zosyn 3.375gm Ivpb (Pre-Docked) IVPB 100 mls/hr Q8H-IV [facility] Administration Lidocaine 1 patch 05/25/17 10:00 05/25/17 10:28 Lidoderm Patch - TP 1 patch DAILY [facility] Administration Lidocaine/Aluminum/Magnesium/Simeth 15 ml 05/24/17 18:00 05/26/17 06:09 Magic Mouthwash *Sjr Formula* - MM Not Given Q6HPO [facility] Miscellaneous 1 each 05/24/17 22:00 05/25/17 21:29 Lidoderm Patch Removal MC 1 each DAILY@2200 [facility] Administration Morphine Sulfate 2 mg 05/25/17 12:06 Morphine Injection - IVPUSH Q4H PRN PAIN Non-Formulary Medication 1 each 05/25/17 10:00 Patient's Own Med NR DAILY [facility] Sotalol HCl 120 mg 05/24/17 22:00 05/25/17 21:29 Betapace - PO 120 mg HS [facility] Administration Sotalol HCl 40 mg 05/25/17 07:00 05/26/17 06:05 Betapace - PO 40 mg AM [facility] Administration Sotalol HCl 80 mg 05/25/17 12:00 05/25/17 12:28 Betapace - PO 80 mg DAILY@1200 [facility] Administration Home Medications Medication Instructions Recorded Amlodipine Besylate [Norvasc -] 10 mg PO DAILY #0 tablet 05/13/13 Clonazepam [Klonopin] 0.5 mg PO BID 04/21/14 Hydroxyurea [Hydrea 500Mg Capsule 500 mg PO DAILY 04/21/14 -] Ranitidine [Zantac -] 150 mg PO BID 06/10/15 Sotalol HCl [Sotalol] 80 mg PO TID 06/10/15 Warfarin Na [Coumadin -] 4 mg PO DAILY 06/10/15 Cholecalciferol (Vitamin D3) 2,000 unit PO DAILY 03/22/16 [Vitamin D3] Epoetin Chris [Procrit] 0 unit IJ ASDIR 09/11/16 Cranberry 400 mg PO DAILY 02/21/17 Mag Hydrox/Alh/Smc/Dpha/Lido 15 ml MM Q6HPO #1 mouthwash 05/16/17 [Magic Mouthwash *Sjr Formula* -] Pot Sor/Hy-Ethylcel/Pvp/Hyalur 15 ml MM DAILY #1 gel.packet 05/16/17 [Gelclair Oral Gel Packet] Systane Ultra 0.4-0.3% Eye Drp TID 05/18/17 ASSESSMENT/PLAN: Correction paragraph with Allergic Rhinitis: Patient is on Zantac at home but not for Allergic rhinitis.
[2017-05-24] MEDS: LIDOCAINE PATCH REMOVAL MC SCH (21:47)
[2017-05-24] MEDS ORDERED: LIDOCAINE PATCH REMOVAL MC SCH (22:00)
[2017-05-25] MEDS: MAG HYDROX/ALH/SMC/DPHA/LIDO 240 ML MOUTHWASH MM SCH ×5 (00:10→23:35)
[2017-05-25] MEDS: PIPERACILLIN/TAZOB 3.375 GM 50 ML IVPB SCH ×3 (01:36→18:26)
[2017-05-25] MEDS: SOTALOL HCL 80 MG TABLET (FP) PO SCH ×3 (06:13→21:29)
[2017-05-25 07:29] LABS: MCH 25.5 pg (25.7-33.7); MCHC 32.4 g/dl (32.0-36.0); MEAN CELL VOLUME 78.6 fl (80-96); MEAN PLT VOLUME 8.6 fl (7.5-11.1); PLATELET COUNT 272 K/MM3 (134-434); RDW 18.3 % (11.6-15.6)
[2017-05-25 07:57] LABS: ALBUMIN 2.6 g/dl (3.4-5.0); ANION GAP 8 (8-16); CALCIUM 7.7 mg/dL (8.5-10.1); CO2 23 mmol/L (21-32); CREATININE 0.6 mg/dL (0.55-1.02); GLUCOSE,RANDOM 95 mg/dL (74-106); SGOT/AST 23 U/L (15-37); SGPT/ALT 22 U/L (12-78)
[2017-05-25 08:00] LABS: ALK PHOS 95 U/L (45-117); BILIRUBIN,TOTAL 0.9 mg/dL (0.2-1.0); TOT PROT 4.9 g/dl (6.4-8.2)
[2017-05-25 08:01] LABS: INR 3.94 (0.82-1.09); PROTHROMBIN TIME (PATIENT) 44.6 SEC (9.98-11.88)
--- NOTE | 2017-05-25 08:21 | PN ---
Progress Note, Physician Chief Complaint: ID Tripp continues ALert back pain still Asking can she eat ?? - Current Medication List Current Medications: Active Medications Amlodipine Besylate (Norvasc -) 10 mg PO DAILY [facility] Cholecalciferol (Vitamin D3 -) 2,000 unit PO DAILY [facility] Pantoprazole Sodium (Protonix 40mg Ivpb (Pre-Docked)) 100 mls @ 200 mls/hr IVPB DAILY [facility] Piperacillin Sod/Tazobactam Sod (Zosyn 3.375gm Ivpb (Pre-Docked)) 50 mls @ 100 mls/hr IVPB Q8H-IV [facility] Last Admin: 05/25/17 01:36 Dose: 100 mls/hr Sodium Chloride (Normal Saline -) 1,000 mls @ 100 mls/hr IV ASDIR [facility] Stop: 05/26/17 05:14 Last Admin: 05/23/17 20:30 Dose: 100 mls/hr Lidocaine (Lidoderm Patch -) 1 patch TP DAILY [facility] Lidocaine/Aluminum/Magnesium/Simeth (Magic Mouthwash *Sjr Formula* -) 15 ml MM Q6HPO [facility] Last Admin: 05/25/17 06:13 Dose: 15 ml Miscellaneous (Lidoderm Patch Removal) 1 each MC DAILY@2200 [facility] Last Admin: 05/24/17 21:47 Dose: 1 each Morphine Sulfate (Morphine Injection -) 2 mg IVPUSH Q4H PRN PRN Reason: PAIN Morphine Sulfate (Morphine Injection -) 2 mg IVPUSH Q4H PRN PRN Reason: PAIN Stop: 05/25/17 13:38 Non-Formulary Medication (Patient's Own Med) 1 each NR DAILY [facility] Sotalol HCl (Betapace -) 120 mg PO HS [facility] Last Admin: 05/24/17 21:38 Dose: 120 mg Sotalol HCl (Betapace -) 40 mg PO AM [facility] Last Admin: 05/25/17 06:13 Dose: 40 mg Sotalol HCl (Betapace -) 80 mg PO DAILY@1200 [facility] - Objective Vital Signs: Vital Signs Temperature 98.5 F 05/25/17 02:00 Pulse Rate 56 L 05/25/17 02:00 Respiratory Rate 20 05/25/17 02:00 Blood Pressure 142/50 05/25/17 02:00 O2 Sat by Pulse Oximetry (%) 99 05/24/17 21:00 Constitutional: Yes: No Distress Neck: Yes: WNL, Supple Cardiovascular: Yes: Regular Rate and Rhythm, S1, S2 Respiratory: Yes: WNL, Regular, CTA Bilaterally. No: Rales, Rhonchi, SOB Gastrointestinal: Yes: Soft, Distention. No: Tenderness, Tenderness, Epigastrium Edema: No Labs: CBC, BMP 05/25/17 05:20 INR, PTT INR 2.73 (0.82-1.09) H 05/24/17 05:10 Problem List - Problems (1) Myeloproliferative disease Code(s): D47.1 - CHRONIC MYELOPROLIFERATIVE DISEASE (2) Ischemic colitis, enteritis, or enterocolitis Code(s): K55.9 - VASCULAR DISORDER OF INTESTINE, UNSPECIFIED (3) Peritonitis Code(s): K65.9 - PERITONITIS, UNSPECIFIED (4) Compression fracture of lumbar vertebra Code(s): S32.000A - WEDGE COMPRESSION FRACTURE OF UNSP LUMBAR VERTEBRA, INIT Qualifiers: Encounter type: initial encounter Fracture type: closed Qualified Code(s): S32.000A - Wedge compression fracture of unspecified lumbar vertebra, initial encounter for closed fracture Assessment/Plan Laboratory Tests 05/24/17 05/25/17 05:10 05:20 WBC 8.0 D Hgb 8.9 L D Hct 27.5 L Plt Count 272 BUN 21 H D Assessment Ischemic colitis on antibiotics day 3 Compression Fx Anemia Plan Consider advance diet as per GI and surgery Out of bed ? Need daily labs Continue antibiotics Rosa PIERSON
[2017-05-25] MEDS: SODIUM CHLORIDE 1,000 ML IV SCH ×2 (08:35→21:29)
[2017-05-25] MEDS: morphine CARPU-JECT 2 MG/1 ML DISP.SYRIN IVPUSH PRN ×2 (08:36→14:27)
[2017-05-25] MEDS: LIDOCAINE 5% TOPICAL PATCH TP SCH (10:28)
[2017-05-25] MEDS: amLODIPine BESYLATE 10 MG TABLET (FP) PO SCH (10:28)
[2017-05-25] MEDS: CHOLECALCIFEROL (VITAMIN D3) 1,000 UNIT TABLET (FP) PO SCH (10:28)
--- NOTE | 2017-05-25 11:22 | PN ---
Progress Note (short form) - Note Progress Note: Patient is feeling better, denies having any abdominal pain. No nausea or vomiting , feels hungry. Vital Signs Temperature 98.5 F 05/25/17 02:00 Pulse Rate 58 L 05/25/17 08:45 Respiratory Rate 20 05/25/17 08:45 Blood Pressure 155/67 05/25/17 08:45 O2 Sat by Pulse Oximetry (%) 99 05/24/17 21:00 GENERAL: The patient is awake, alert, sitting upright in bed, not in distress, looks better than yesterday EYES: PERRL, extraocular movements intact ENT: Dry mucous membranes, R sided tongue bluish discoloration, R sided yellow circular tongue sores NECK: Neck was supple, not tender to palpation. Mildly limited ROM of neck, discomfort with movement LUNGS: Breath sounds equal, upper lung hernández were clear to auscultation bilaterally HEART: Bradycardic rate, regular rhythm, S1, S2 +2/6 NIEVES ABDOMEN: Protuberant abdomen which is unchanged, softer, no guarding, normal bowel sounds EXTREMITIES: 2+ pulses, warm, well-perfused, no edema. Tenderness to palpation of the mid/lower back. due to T12 Fx. NEUROLOGICAL: Patient is oriented to person, place, and month. Cranial nerves II through XII grossly intact. CBCD WBC 8.0 K/mm3 (4.0-10.0) D 05/25/17 05:20 RBC 3.50 M/mm3 (3.60-5.2) L 05/25/17 05:20 Hgb 8.9 GM/dL (10.7-15.3) L D 05/25/17 05:20 Hct 27.5 % (32.4-45.2) L 05/25/17 05:20 MCV 78.6 fl (80-96) L 05/25/17 05:20 MCHC 32.4 g/dl (32.0-36.0) 05/25/17 05:20 RDW 18.3 % (11.6-15.6) H 05/25/17 05:20 Plt Count 272 K/MM3 (134-434) 05/25/17 05:20 MPV 8.6 fl (7.5-11.1) 05/25/17 05:20 CMP Sodium 142 mmol/L (136-145) 05/25/17 05:20 Potassium 3.7 mmol/L (3.5-5.1) 05/25/17 05:20 Chloride 111 mmol/L (98-107) H 05/25/17 05:20 Carbon Dioxide 23 mmol/L (21-32) 05/25/17 05:20 Anion Gap 8 (8-16) 05/25/17 05:20 BUN 12 mg/dL (7-18) D 05/25/17 05:20 Creatinine 0.6 mg/dL (0.55-1.02) D 05/25/17 05:20 Creat Clearance w eGFR > 60 (>60) 05/25/17 05:20 Random Glucose 95 mg/dL (74-106) D 05/25/17 05:20 Calcium 7.7 mg/dL (8.5-10.1) L 05/25/17 05:20 Total Bilirubin 0.9 mg/dL (0.2-1.0) D 05/25/17 05:20 AST 23 U/L (15-37) 05/25/17 05:20 ALT 22 U/L (12-78) 05/25/17 05:20 Alkaline Phosphatase 95 U/L (45-117) 05/25/17 05:20 Total Protein 4.9 g/dl (6.4-8.2) L 05/25/17 05:20 Albumin 2.6 g/dl (3.4-5.0) L 05/25/17 05:20 CARDIAC ENZYMES Creatine Kinase 39 IU/L (26-192) 05/22/17 13:42 Troponin I 0.02 ng/ml (0.00-0.05) 05/22/17 13:42 Current Medications Generic Name Dose Route Start Last Admin Trade Name Hugoq PRN Reason Stop Dose Admin Amlodipine Besylate 10 mg 05/25/17 10:00 05/25/17 10:28 Norvasc - PO 10 mg DAILY MARGAIRTA Administration Cholecalciferol 2,000 unit 05/25/17 10:00 05/25/17 10:28 Vitamin D3 - PO 2,000 unit DAILY MARGARITA Administration Pantoprazole Sodium 100 mls @ 200 mls/hr 05/25/17 10:00 Protonix 40mg Ivpb (Pre-Docked) IVPB DAILY MARGARITA Piperacillin Sod/Tazobactam Sod 50 mls @ 100 mls/hr 05/24/17 18:00 05/25/17 10: 28 Zosyn 3.375gm Ivpb (Pre-Docked) IVPB 100 mls/hr Q8H-IV MARGARITA Administration Sodium Chloride 1,000 mls @ 100 mls/hr 05/24/17 19:15 05/25/17 08:35 Normal Saline - IV 05/26/17 05:14 100 mls/hr ASDIR MARGARITA Administration Lidocaine 1 patch 05/25/17 10:00 05/25/17 10:28 Lidoderm Patch - TP 1 patch DAILY MARGARITA Administration Lidocaine/Aluminum/Magnesium/Simeth 15 ml 05/24/17 18:00 05/25/17 06:13 Magic Mouthwash *Sjr Formula* - MM 15 ml Q6HPO MARGARIAT Administration Miscellaneous 1 each 05/24/17 22:00 05/24/17 21:47 Lidoderm Patch Removal MC 1 each DAILY@2200 MARGARITA Administration Morphine Sulfate 2 mg 05/25/17 12:06 Morphine Injection - IVPUSH Q4H PRN PAIN Morphine Sulfate 2 mg 05/24/17 13:39 05/25/17 08:36 Morphine Injection - IVPUSH 05/25/17 13:38 2 mg Q4H PRN Administration PAIN Non-Formulary Medication 1 each 05/25/17 10:00 Patient's Own Med NR DAILY MARGARITA Sotalol HCl 120 mg 05/24/17 22:00 05/24/17 21:38 Betapace - PO 120 mg HS MARGARITA Administration Sotalol HCl 40 mg 05/25/17 07:00 05/25/17 06:13 Betapace - PO 40 mg AM MARGARITA Administration Sotalol HCl 80 mg 05/25/17 12:00 Betapace - PO DAILY@1200 [facility] Home Medications Medication Instructions Recorded Amlodipine Besylate [Norvasc -] 10 mg PO DAILY #0 tablet 05/13/13 Clonazepam [Klonopin] 0.5 mg PO BID 04/21/14 Hydroxyurea [Hydrea 500Mg Capsule 500 mg PO DAILY 04/21/14 -] Ranitidine [Zantac -] 150 mg PO BID 06/10/15 Sotalol HCl [Sotalol] 80 mg PO TID 06/10/15 Warfarin Na [Coumadin -] 4 mg PO DAILY 06/10/15 Cholecalciferol (Vitamin D3) 2,000 unit PO DAILY 03/22/16 [Vitamin D3] Epoetin Chris [Procrit] 0 unit IJ ASDIR 09/11/16 Cranberry 400 mg PO DAILY 02/21/17 Mag Hydrox/Alh/Smc/Dpha/Lido 15 ml MM Q6HPO #1 mouthwash 05/16/17 [Magic Mouthwash *Sjr Formula* -] Pot Sor/Hy-Ethylcel/Pvp/Hyalur 15 ml MM DAILY #1 gel.packet 05/16/17 [Gelclair Oral Gel Packet] Systane Ultra 0.4-0.3% Eye Drp TID 05/18/17 05/24/17 09:00 Stool Clostridium difficile Antigen (ELLIOT) - Final 05/24/17 09:00 Stool Clostridium difficile Toxin Assay - Final 05/22/17 15:00 Blood - Peripheral Venous Blood Culture - Preliminary NO GROWTH OBTAINED AFTER 24 HOURS, INCUBATION TO CONTINUE FOR 4 DAYS. 05/22/17 15:08 Blood - Peripheral Venous Blood Culture - Preliminary NO GROWTH OBTAINED AFTER 24 HOURS, INCUBATION TO CONTINUE FOR 4 DAYS. stool occult: Negative INR : 2.31--2.7 -->2.73-->3.94 today ASSESSMENT AND PLAN: 86 y/o lady with h/o Lymphoma on radiation , myelo-proliferative disease ,HTN , A fib on coumadin and other medical problems who presented after a mechanical fall. # Acute Colitis improving . On IV Antibiotics Zosyn continue, s/p Flagyl discontinued , patient is doing better. GI, Surgery and ID on the case and appreciated. # T12 fracture- will stay away from Tylenol since can elevated INR. on Morphine prn. # Supratherapeutic INR; improving but INR 2.7-->3.94 today , FFP if needed, s/p Vit K po 2.5mg x 1 , CBC 8.1--->7.8--> 8.9 today. # Afib- rate controlled. cont. Sotatolol will give coumadin 1mg tonight, PT/INR in am, will hold coumadin for now, pt/INR daily DVT ppx- SCD. supratherapeutic INR full liquid diet. Visit type - Emergency Visit Emergency Visit: Yes ED Registration Date: 05/17/17 Care time: The patient presented to the Emergency Department on the above date and was hospitalized for further evaluation of their emergent condition. - New Patient This patient is new to me today: No - Critical Care Critical Care patient: No
[2017-05-25] MEDS: PANTOPRAZOLE SODIUM 100 ML IVPB SCH (11:31)
[2017-05-25] MEDS ORDERED: morphine CARPU-JECT 4 MG/1 ML DISP.SYRIN IVPUSH PRN (12:06)
--- NOTE | 2017-05-25 12:29 | PN ---
Progress Note (short form) - Note Progress Note: Patients seen and examined. She feels that she is improved, but she feels as weak as "kitten". She is waiting to drink some "broth" this afternoon Moved out of the ICU to the floor She did have formed bowel movements again and also urinating with no problems General: appears in pain Extremities: No pallor or icterus, no pedal edema. Chest:CTA b/l Abdomen: No tendernes noted today, BS heard. Neuro: Alert, oriented, non-focal. CVS: Normal sinus rhythm, S1, S2, no gallop or murmur. H and N: R parotid mass palpable CBC, BMP 05/25/17 05:20 05/25/17 05:20 INR, PTT INR 3.94 (0.82-1.09) H D 05/25/17 05:20 Last Vital Signs Temp Pulse Resp BP Pulse Ox 98.5 F 58 L 20 155/67 99 05/25/17 02:00 05/25/17 08:45 05/25/17 08:45 05/25/17 08:45 05/24/17 21:00 Current Medications Generic Name Dose Route Start Last Admin Trade Name Freq PRN Reason Stop Dose Admin Amlodipine Besylate 10 mg 05/25/17 10:00 05/25/17 10:28 Norvasc - PO 10 mg DAILY MARGARITA Administration Cholecalciferol 2,000 unit 05/25/17 10:00 05/25/17 10:28 Vitamin D3 - PO 2,000 unit DAILY MARGARITA Administration Pantoprazole Sodium 100 mls @ 200 mls/hr 05/25/17 10:00 05/25/17 11:31 Protonix 40mg Ivpb (Pre-Docked) IVPB 200 mls/hr DAILY MARGARITA Administration Piperacillin Sod/Tazobactam Sod 50 mls @ 100 mls/hr 05/24/17 18:00 05/25/17 10: 28 Zosyn 3.375gm Ivpb (Pre-Docked) IVPB 100 mls/hr Q8H-IV MARGARITA Administration Sodium Chloride 1,000 mls @ 100 mls/hr 05/24/17 19:15 05/25/17 08:35 Normal Saline - IV 05/26/17 05:14 100 mls/hr ASDIR MARGARITA Administration Lidocaine 1 patch 05/25/17 10:00 05/25/17 10:28 Lidoderm Patch - TP 1 patch DAILY MARGARITA Administration Lidocaine/Aluminum/Magnesium/Simeth 15 ml 05/24/17 18:00 05/25/17 06:13 Magic Mouthwash *Sjr Formula* - MM 15 ml Q6HPO MARGARITA Administration Miscellaneous 1 each 05/24/17 22:00 05/24/17 21:47 Lidoderm Patch Removal MC 1 each DAILY@2200 MARGARITA Administration Morphine Sulfate 2 mg 05/25/17 12:06 Morphine Injection - IVPUSH Q4H PRN PAIN Morphine Sulfate 2 mg 05/24/17 13:39 05/25/17 08:36 Morphine Injection - IVPUSH 05/25/17 13:38 2 mg Q4H PRN Administration PAIN Non-Formulary Medication 1 each 05/25/17 10:00 Patient's Own Med NR DAILY MARGARITA Sotalol HCl 120 mg 05/24/17 22:00 05/24/17 21:38 Betapace - PO 120 mg HS MARGARITA Administration Sotalol HCl 40 mg 05/25/17 07:00 05/25/17 06:13 Betapace - PO 40 mg AM MARGARITA Administration Sotalol HCl 80 mg 05/25/17 12:00 Betapace - PO DAILY@1200 MARGARITA Assessment/Plan: Suspected ischemic colitis: -on conservative management with improvement, likely to start clears today -White count normalized -c diff negative Coagulopathy: -now inr therapeutic -consider holding coumadin this pm -inr monitoring anemia: -will hold off on transfusion or procrit for now -will monitor cbc -will re-start Hydrea if the platelet count trends up around 500-600. MALT lymphoma of the Parotid: -Receiving RT as an OP. h/o Burnt ET -received procrit on 05/18/2017 Iron overload: -to be monitored, presently on no treatment Back pain from Compression fracture: -seen by Neurosurgery -conservative management -may need pain mgmt as an Out patient Will follow
--- NOTE | 2017-05-25 13:43 | PN ---
Progress Note (short form) - Note Progress Note: Feels ok, just weak. No CP or SOB. Clears. Intake & Output 05/22/17 05/23/17 05/24/17 05/25/17 23:59 23:59 23:59 23:59 Intake Total 2120 1600 2100 1210 Output Total 2500 900 Balance -059 308 1034 1210 Weight 126 lb 11.2 oz 124 lb 12.506 oz Last Vital Signs Temp Pulse Resp BP Pulse Ox 98.5 F 58 L 20 155/67 99 05/25/17 02:00 05/25/17 08:45 05/25/17 08:45 05/25/17 08:45 05/24/17 21:00 Active Medications Amlodipine Besylate (Norvasc -) 10 mg PO DAILY [facility] Last Admin: 05/25/17 10:28 Dose: 10 mg Cholecalciferol (Vitamin D3 -) 2,000 unit PO DAILY [facility] Last Admin: 05/25/17 10:28 Dose: 2,000 unit Pantoprazole Sodium (Protonix 40mg Ivpb (Pre-Docked)) 100 mls @ 200 mls/hr IVPB DAILY [facility] Last Admin: 05/25/17 11:31 Dose: 200 mls/hr Piperacillin Sod/Tazobactam Sod (Zosyn 3.375gm Ivpb (Pre-Docked)) 50 mls @ 100 mls/hr IVPB Q8H-IV MARGARITA Last Admin: 05/25/17 10:28 Dose: 100 mls/hr Sodium Chloride (Normal Saline -) 1,000 mls @ 100 mls/hr IV ASDIR [facility] Stop: 05/26/17 05:14 Last Admin: 05/25/17 08:35 Dose: 100 mls/hr Lidocaine (Lidoderm Patch -) 1 patch TP DAILY [facility] Last Admin: 05/25/17 10:28 Dose: 1 patch Lidocaine/Aluminum/Magnesium/Simeth (Magic Mouthwash *Sjr Formula* -) 15 ml MM Q6HPO [facility] Last Admin: 05/25/17 06:13 Dose: 15 ml Miscellaneous (Lidoderm Patch Removal) 1 each MC DAILY@2200 [facility] Last Admin: 05/24/17 21:47 Dose: 1 each Morphine Sulfate (Morphine Injection -) 2 mg IVPUSH Q4H PRN PRN Reason: PAIN Non-Formulary Medication (Patient's Own Med) 1 each NR DAILY [facility] Sotalol HCl (Betapace -) 120 mg PO HS [facility] Last Admin: 05/24/17 21:38 Dose: 120 mg Sotalol HCl (Betapace -) 40 mg PO AM [facility] Last Admin: 05/25/17 06:13 Dose: 40 mg Sotalol HCl (Betapace -) 80 mg PO DAILY@1200 [facility] Last Admin: 05/25/17 12:28 Dose: 80 mg Gen: Awake and alert, NAD Heart: S1S2 regular Lung: decreased breath sounds at the bases Abd: softly distended, (+) Minimal tenderness to palpation, (-) guarding Ext: no edema Neuro: Non-focal Laboratory Results - last 24 hr 05/21/17 05/25/17 05/25/17 14:20 05:20 05:20 WBC 8.0 D RBC 3.50 L Hgb 8.9 L D Hct 27.5 L MCV 78.6 L MCH 25.5 L MCHC 32.4 RDW 18.3 H Plt Count 272 MPV 8.6 INR 3.94 H D Sodium Potassium Chloride Carbon Dioxide Anion Gap BUN Creatinine Creat Clearance w eGFR Random Glucose Calcium Total Bilirubin AST ALT Alkaline Phosphatase Total Protein Albumin Blood Type AB POSITIVE Antibody Screen Negative Crossmatch See Detail 05/25/17 05:20 WBC RBC Hgb Hct MCV MCH MCHC RDW Plt Count MPV INR Sodium 142 Potassium 3.7 Chloride 111 H Carbon Dioxide 23 Anion Gap 8 BUN 12 D Creatinine 0.6 D Creat Clearance w eGFR > 60 Random Glucose 95 D Calcium 7.7 L Total Bilirubin 0.9 D AST 23 ALT 22 Alkaline Phosphatase 95 Total Protein 4.9 L Albumin 2.6 L Blood Type Antibody Screen Crossmatch ASSESSMENT AND PLAN: Acute Abdomen Suspected Ischemic Colitis Atrial Fibrillation Myeloproliferative Disorder Anemia Lymphoma HTN GERD - ABX per ID - Pain control - Clears - Rate control - AC for INR 2-3 - DNR/DNI Dr Zuleta
--- NOTE | 2017-05-25 14:45 | PN ---
Progress Note (short form) - Note Progress Note: S: 86 year old female with known case of hypertension, paroxysmal atrial fibrillation, myelodysplastic syndrome, thrombocytosis, anemia, Tucker's thyroiditis, history of IBS, anxiety disorder, and depression. Admitted with a history of a fall and had been complaining of constipation and received multiple laxatives and developed an acute abdomen, after she had an episode of diarrhea. Since yesterday, the patient has shown decreasing abdominal pain and now has had a normal BM. Vital Signs - 24 hr 05/25/17 05/25/17 05/25/17 15:01 17:00 21:00 Temperature 98.3 F 98.7 F Pulse Rate 59 L 56 L Respiratory 20 20 20 Rate Blood Pressure 128/54 148/53 O2 Sat by Pulse Oximetry (%) 05/25/17 05/26/17 05/26/17 22:00 02:00 06:00 Temperature 97.5 F L 98.1 F 97.7 F Pulse Rate 59 L 51 L 54 L Respiratory 16 16 16 Rate Blood Pressure 166/63 151/57 156/72 O2 Sat by Pulse Oximetry (%) 05/26/17 05/26/17 07:53 08:00 Temperature 98.1 F Pulse Rate 49 L Respiratory 18 18 Rate Blood Pressure 145/66 O2 Sat by Pulse 98 Oximetry (%) Home Medication List Medication Instructions Recorded Confirmed Type Clonazepam [Klonopin] 0.5 mg PO BID 04/21/14 05/18/17 History Hydroxyurea [Hydrea 500Mg Capsule 500 mg PO DAILY 04/21/14 05/16/17 History -] Ranitidine [Zantac -] 150 mg PO BID 06/10/15 05/18/17 History Sotalol HCl [Sotalol] 80 mg PO TID 06/10/15 05/18/17 History Warfarin Na [Coumadin -] 4 mg PO DAILY 06/10/15 05/16/17 History Cholecalciferol (Vitamin D3) 2,000 unit PO DAILY 03/22/16 05/16/17 History [Vitamin D3] Epoetin Chris [Procrit] 0 unit IJ ASDIR 09/11/16 05/16/17 History Cranberry 400 mg PO DAILY 02/21/17 05/16/17 History Systane Ultra 0.4-0.3% Eye Drp TID 05/18/17 History Active Medications Generic Name Dose Route Start Last Admin Trade Name Gaston PRN Reason Stop Dose Admin Acetaminophen 650 mg 05/25/17 19:46 05/25/17 21:30 Tylenol - PO 650 mg Q4H PRN Administration FEVER OR PAIN Amlodipine Besylate 10 mg 05/25/17 10:00 05/26/17 09:22 Norvasc - PO 10 mg DAILY MARGARITA Administration Cholecalciferol 2,000 unit 05/25/17 10:00 05/26/17 09:22 Vitamin D3 - PO 2,000 unit DAILY MARGARITA Administration Pantoprazole Sodium 100 mls @ 200 mls/hr 05/25/17 10:00 05/26/17 09:23 Protonix 40mg Ivpb (Pre-Docked) IVPB 200 mls/hr DAILY MARGARITA Administration Piperacillin Sod/Tazobactam Sod 50 mls @ 100 mls/hr 05/24/17 18:00 05/26/17 09: 23 Zosyn 3.375gm Ivpb (Pre-Docked) IVPB 100 mls/hr Q8H-IV MARGARITA Administration Potassium Phosphate 30 mm/ 260 mls @ 65 mls/hr 05/26/17 09:15 05/26/17 11:57 Dextrose IVPB 05/26/17 13:14 65 mls/hr ONCE ONE Administration 30 MM/4 HR Lidocaine 1 patch 05/25/17 10:00 05/26/17 09:19 Lidoderm Patch - TP 1 patch DAILY MARGARITA Administration Lidocaine/Aluminum/Magnesium/Simeth 15 ml 05/24/17 18:00 05/26/17 11:58 Magic Mouthwash *Sjr Formula* - MM Not Given Q6HPO MARGARITA Miscellaneous 1 each 05/24/17 22:00 05/25/17 21:29 Lidoderm Patch Removal MC 1 each DAILY@2200 MARGARITA Administration Morphine Sulfate 2 mg 05/25/17 12:06 Morphine Injection - IVPUSH Q4H PRN PAIN Non-Formulary Medication 1 each 05/25/17 10:00 Patient's Own Med NR DAILY MARGARITA Sotalol HCl 120 mg 05/24/17 22:00 05/25/17 21:29 Betapace - PO 120 mg HS MARGARITA Administration Sotalol HCl 40 mg 05/25/17 07:00 05/26/17 06:05 Betapace - PO 40 mg AM MARGARITA Administration Sotalol HCl 80 mg 05/25/17 12:00 05/26/17 11:58 Betapace - PO 80 mg DAILY@1200 MARGARITA Administration No history of palpitations, chest pain or discomfort. No dyspnea, PND, or orthopnea reported. Patient complains of significant fatigue. Remains in sinus rhythm. O: 86 year old male/female was in no acute distress. Pallor + No cyanosis, clubbing, or jaundice. NECK: Supple, no JVD, negative HJR, carotids were equal and upstrokes were normal, no thyromegaly appreciated. HEART: PMI was in the 5th intercostal space, no heaves or thrills, S1 and S2 were normal. Non ejection systolic click along the left sternal border and apex. No murmur or gallops were heard. LUNGS: Clear on auscultation bilaterally. ABDOMEN: Distended, mild diffuse tenderness, no rebound tenderness, no hepatosplenomegaly appreciated, and no palpable masses were felt. Bowel sounds were heard. EXTREMITIES: No calf tenderness or dependent edema. Pulses are normal. Laboratory Last Values WBC 8.2 K/mm3 (4.0-10.0) 05/26/17 05:50 Corrected WBC (auto) Cancelled 05/22/17 17:39 RBC 3.74 M/mm3 (3.60-5.2) 05/26/17 05:50 Hgb 9.5 GM/dL (10.7-15.3) L 05/26/17 05:50 Hct 29.5 % (32.4-45.2) L 05/26/17 05:50 MCV 78.8 fl (80-96) L 05/26/17 05:50 MCH 25.3 pg (25.7-33.7) L 05/26/17 05:50 MCHC 32.2 g/dl (32.0-36.0) 05/26/17 05:50 RDW 18.2 % (11.6-15.6) H 05/26/17 05:50 Plt Count 302 K/MM3 (134-434) 05/26/17 05:50 MPV 8.4 fl (7.5-11.1) 05/26/17 05:50 Neutrophils % 82.4 % (42.8-82.8) 05/26/17 05:50 Lymphocytes % 6.9 % (8-40) L 05/26/17 05:50 Monocytes % 6.2 % (3.8-10.2) 05/26/17 05:50 Eosinophils % 3.4 % (0-4.5) 05/26/17 05:50 Basophils % 1.1 % (0-2.0) 05/26/17 05:50 Band Neutrophils 15.0 % (0-10) H 05/21/17 14:20 Metamyelocytes 1 % (0-2) 05/21/17 14:20 Myelocytes 1 % (0-2) 05/21/17 14:20 Differential Comment Slide scanned 05/19/17 06:00 Platelet Estimate Cancelled 05/22/17 17:39 Platelet Comment Cancelled 05/22/17 17:39 Platelet Comment Cancelled 05/22/17 17:39 RBC Morphology Cancelled 05/22/17 17:39 Hypochromic-Microcytic 1+ 05/17/17 06:38 Anisocytosis 1+ 05/21/17 14:20 Microcytosis 1+ 05/21/17 14:20 Schistocytes 1+ 05/17/17 06:38 Morphology Comment Slide scanned 05/17/17 06:38 ESR 18 mm/hr (0-30) 05/24/17 05:10 INR 5.13 (0.82-1.09) H* D 05/26/17 05:50 PTT (Actin FS) 49.8 SECONDS (26.9-34.4) H D 05/16/17 18:22 Sodium 141 mmol/L (136-145) 05/26/17 05:50 Potassium 3.5 mmol/L (3.5-5.1) 05/26/17 05:50 Chloride 109 mmol/L (98-107) H 05/26/17 05:50 Carbon Dioxide 25 mmol/L (21-32) 05/26/17 05:50 Anion Gap 7 (8-16) L 05/26/17 05:50 BUN 12 mg/dL (7-18) 05/26/17 05:50 Creatinine 0.6 mg/dL (0.55-1.02) 05/26/17 05:50 Creat Clearance w eGFR > 60 (>60) 05/26/17 05:50 Random Glucose 87 mg/dL (74-106) 05/26/17 05:50 Lactic Acid 1.1 mmol/L (0.4-2.0) 05/22/17 13:57 Calcium 8.0 mg/dL (8.5-10.1) L 05/26/17 05:50 Phosphorus 1.8 mg/dL (2.5-4.9) L D 05/26/17 05:50 Magnesium 1.8 mg/dL (1.8-2.4) 05/26/17 05:50 Total Bilirubin 0.9 mg/dL (0.2-1.0) 05/26/17 05:50 AST 25 U/L (15-37) 05/26/17 05:50 ALT 22 U/L (12-78) 05/26/17 05:50 Alkaline Phosphatase 113 U/L (45-117) 05/26/17 05:50 Creatine Kinase 39 IU/L (26-192) 05/22/17 13:42 Troponin I 0.02 ng/ml (0.00-0.05) 05/22/17 13:42 C-Reactive Protein 2.7 MG/DL (0.00-0.3) H D 05/26/17 05:50 B-Natriuretic Peptide Cancelled 05/16/17 18:22 Total Protein 5.2 g/dl (6.4-8.2) L 05/26/17 05:50 Albumin 2.8 g/dl (3.4-5.0) L 05/26/17 05:50 Stool Occult Blood Negative (NEGATIVE) 05/21/17 10:00 Blood Type AB POSITIVE 05/21/17 14:20 Antibody Screen Negative 05/21/17 14:20 Crossmatch See Detail 05/21/17 14:20 Impression: 1. Hypertension, hypertensive cardiovascular disease. Currently normotensive. 2. History of paroxysmal atrial fibrillation. 3. Auscultatory finding suggestive of mitral valve prolapse. 4. Fatigue, probably related to anemia. 5. Myelodysplastic syndrome. 6. History of thrombocytosis, currently corrected. 7. History of Tucker's thyroiditis. 8. Acute abdomen, resolving. Recommendations: 1. Continue current cardiac medications. 2. Consider correction of anemia after consultation with hematology. 3. Increase ambulation. 4. Close follow up of INR and consider resumption of Coumadin if agreed upon by hematology. Documentation prepared by Darcy Williamson, acting as a medical translator for Robert Loaiza MD. Problem List - Problems (1) Acute abdomen Code(s): R10.0 - ACUTE ABDOMEN (2) Hypertension Code(s): I10 - ESSENTIAL (PRIMARY) HYPERTENSION (3) A-fib Code(s): I48.91 - UNSPECIFIED ATRIAL FIBRILLATION Qualifiers: Atrial fibrillation type: paroxysmal Qualified Code(s): I48.0 - Paroxysmal atrial fibrillation (4) History of Tucker thyroiditis Code(s): Z86.39 - PERSONAL HISTORY OF ENDO, NUTRITIONAL AND METABOLIC DISEASE (5) Mitral valve prolapse syndrome Code(s): I34.1 - NONRHEUMATIC MITRAL (VALVE) PROLAPSE (6) Anemia Code(s): D64.9 - ANEMIA, UNSPECIFIED
--- NOTE | 2017-05-25 19:46 | PN ---
GI Progress Note Subjective: GI NOte: Developed pain after clear liquids. The pain was in the RUQ . It was relieved by morphine. No pain at present. No BM today. - Objective Vital Signs: Vital Signs Temperature 98.3 F 05/25/17 15:01 Pulse Rate 59 L 05/25/17 15:01 Respiratory Rate 20 05/25/17 15:01 Blood Pressure 128/54 05/25/17 15:01 O2 Sat by Pulse Oximetry (%) 99 05/24/17 21:00 Constitutional: Anxious Gastrointestinal Inspection: Yes: Distention ...Auscultate: Yes: Hypoactive Bowel Sounds ...Palpate: Yes: Soft, Other (nontender) Labs: CBC, BMP 05/25/17 05:20 05/25/17 05:20 INR, PTT INR 3.94 (0.82-1.09) H D 05/25/17 05:20 Laboratory Tests 05/25/17 05/25/17 05:20 05:20 WBC 8.0 D Hgb 8.9 L D Total Bilirubin 0.9 D AST 23 ALT 22 Alkaline Phosphatase 95 Albumin 2.6 L Assessment/Plan Suspect gas pain due to ileus which I explained is being aggravated by the narcotic analgesics. Will try Tylenol and another attempt at clear liquids in the AM.
[2017-05-25] MEDS: LIDOCAINE PATCH REMOVAL MC SCH (21:29)
[2017-05-25] MEDS: ACETAMINOPHEN 325 MG TABLET (FP) PO PRN (21:30)
[2017-05-26] MEDS: PIPERACILLIN/TAZOB 3.375 GM 50 ML IVPB SCH ×3 (03:16→17:00)
[2017-05-26] MEDS ORDERED: PT OWN MED DRAWER 7, Y5N ONE ×2 (05:55→21:20)
[2017-05-26] MEDS: SOTALOL HCL 80 MG TABLET (FP) PO SCH ×3 (06:05→21:22)
[2017-05-26] MEDS: MAG HYDROX/ALH/SMC/DPHA/LIDO 240 ML MOUTHWASH MM SCH ×4 (06:09→21:23)
[2017-05-26 08:12] LABS: BASOPHIL 1.1 % (0-2.0); EOSINOPHIL 3.4 % (0-4.5); MCH 25.3 pg (25.7-33.7); MCHC 32.2 g/dl (32.0-36.0); MEAN CELL VOLUME 78.8 fl (80-96); MEAN PLT VOLUME 8.4 fl (7.5-11.1); NEUTROPHILS 82.4 % (42.8-82.8); PLATELET COUNT 302 K/MM3 (134-434); RDW 18.2 % (11.6-15.6); WHITE BLOOD COUNT 8.2 K/mm3 (4.0-10.0)
[2017-05-26 08:20] LABS: PROTHROMBIN TIME (PATIENT) 58.4 SEC (9.98-11.88)
[2017-05-26 08:21] LABS: INR 5.13 (0.82-1.09)
[2017-05-26 08:36] LABS: ALBUMIN 2.8 g/dl (3.4-5.0); ANION GAP 7 (8-16); BILIRUBIN,TOTAL 0.9 mg/dL (0.2-1.0); CO2 25 mmol/L (21-32); CREATININE 0.6 mg/dL (0.55-1.02); GLUCOSE,RANDOM 87 mg/dL (74-106); MAGNESIUM 1.8 mg/dL (1.8-2.4); PHOSPHOROUS 1.8 mg/dL (2.5-4.9); SGOT/AST 25 U/L (15-37); SGPT/ALT 22 U/L (12-78); TOT PROT 5.2 g/dl (6.4-8.2)
[2017-05-26 08:37] LABS: ALK PHOS 113 U/L (45-117)
--- NOTE | 2017-05-26 08:49 | PN ---
Teaching Attending Note Name of Resident: Maryse Hung ATTENDING PHYSICIAN STATEMENT I saw and evaluated the patient. I reviewed the resident's note and discussed the case with the resident. I agree with the resident's findings and plan as documented. SUBJECTIVE: Patient is feeling better, advance her diet. OBJECTIVE: Vital Signs Temperature 98.1 F 05/26/17 07:53 Pulse Rate 49 L 05/26/17 07:53 Respiratory Rate 18 05/26/17 07:53 Blood Pressure 145/66 05/26/17 07:53 O2 Sat by Pulse Oximetry (%) 99 05/24/17 21:00 CBCD WBC 8.2 K/mm3 (4.0-10.0) 05/26/17 05:50 RBC 3.74 M/mm3 (3.60-5.2) 05/26/17 05:50 Hgb 9.5 GM/dL (10.7-15.3) L 05/26/17 05:50 Hct 29.5 % (32.4-45.2) L 05/26/17 05:50 MCV 78.8 fl (80-96) L 05/26/17 05:50 MCHC 32.2 g/dl (32.0-36.0) 05/26/17 05:50 RDW 18.2 % (11.6-15.6) H 05/26/17 05:50 Plt Count 302 K/MM3 (134-434) 05/26/17 05:50 MPV 8.4 fl (7.5-11.1) 05/26/17 05:50 CMP Sodium 142 mmol/L (136-145) 05/25/17 05:20 Potassium 3.7 mmol/L (3.5-5.1) 05/25/17 05:20 Chloride 111 mmol/L (98-107) H 05/25/17 05:20 Carbon Dioxide 23 mmol/L (21-32) 05/25/17 05:20 Anion Gap 8 (8-16) 05/25/17 05:20 BUN 12 mg/dL (7-18) D 05/25/17 05:20 Creatinine 0.6 mg/dL (0.55-1.02) D 05/25/17 05:20 Creat Clearance w eGFR > 60 (>60) 05/25/17 05:20 Random Glucose 95 mg/dL (74-106) D 05/25/17 05:20 Calcium 7.7 mg/dL (8.5-10.1) L 05/25/17 05:20 Total Bilirubin 0.9 mg/dL (0.2-1.0) D 05/25/17 05:20 AST 23 U/L (15-37) 05/25/17 05:20 ALT 22 U/L (12-78) 05/25/17 05:20 Alkaline Phosphatase 95 U/L (45-117) 05/25/17 05:20 Total Protein 4.9 g/dl (6.4-8.2) L 05/25/17 05:20 Albumin 2.6 g/dl (3.4-5.0) L 05/25/17 05:20 CARDIAC ENZYMES Creatine Kinase 39 IU/L (26-192) 05/22/17 13:42 Troponin I 0.02 ng/ml (0.00-0.05) 05/22/17 13:42 Current Medications Generic Name Dose Route Start Last Admin Trade Name Gaston PRN Reason Stop Dose Admin Acetaminophen 650 mg 05/25/17 19:46 05/25/17 21:30 Tylenol - PO 650 mg Q4H PRN Administration FEVER OR PAIN Amlodipine Besylate 10 mg 05/25/17 10:00 05/25/17 10:28 Norvasc - PO 10 mg DAILY MARGARITA Administration Cholecalciferol 2,000 unit 05/25/17 10:00 05/25/17 10:28 Vitamin D3 - PO 2,000 unit DAILY MARGARITA Administration Pantoprazole Sodium 100 mls @ 200 mls/hr 05/25/17 10:00 05/25/17 11:31 Protonix 40mg Ivpb (Pre-Docked) IVPB 200 mls/hr DAILY MARGARITA Administration Piperacillin Sod/Tazobactam Sod 50 mls @ 100 mls/hr 05/24/17 18:00 05/26/17 03: 16 Zosyn 3.375gm Ivpb (Pre-Docked) IVPB 100 mls/hr Q8H-IV MARGARITA Administration Lidocaine 1 patch 05/25/17 10:00 05/25/17 10:28 Lidoderm Patch - TP 1 patch DAILY MARG[facility]ITA Administration Lidocaine/Aluminum/Magnesium/Simeth 15 ml 05/24/17 18:00 05/26/17 06:09 Magic Mouthwash *Sjr Formula* - MM Not Given Q6HPO MARGARITA Miscellaneous 1 each 05/24/17 22:00 05/25/17 21:29 Lidoderm Patch Removal MC 1 each DAILY@2200 MARGARITA Administration Morphine Sulfate 2 mg 05/25/17 12:06 Morphine Injection - IVPUSH Q4H PRN PAIN Non-Formulary Medication 1 each 05/25/17 10:00 Patient's Own Med NR DAILY MARGARITA Sotalol HCl 120 mg 05/24/17 22:00 05/25/17 21:29 Betapace - PO 120 mg HS MARGARITA Administration Sotalol HCl 40 mg 05/25/17 07:00 05/26/17 06:05 Betapace - PO 40 mg AM MARGARITA Administration Sotalol HCl 80 mg 05/25/17 12:00 05/25/17 12:28 Betapace - PO 80 mg DAILY@1200 MARGARITA Administration Laboratory Tests 05/22/17 05/26/17 05:45 05:50 Phosphorus 2.3 L D 1.8 L D Magnesium 2.2 PE: as per resident's note stool occult: Negative INR : 2.31--2.7 -->2.73-->3.94-->5.13 today ASSESSMENT AND PLAN: 86 y/o lady with h/o Lymphoma on radiation , myelo-proliferative disease ,HTN , A fib on coumadin and other medical problems who presented after a mechanical fall. # Acute hypophosphotemia (1.8) : 30mmol kphos being repleted, will repeat her level. # Acute Colitis improving . On IV Antibiotics Zosyn continue as per ID, s/p Flagyl discontinued , patient is doing better. GI, Surgery and ID on the case and appreciated. # T12 fracture- will stay away from Tylenol since can elevated INR. on Morphine prn. # Supratherapeutic INR; improving but INR 2.7-->3.94--5.13 today , FFP if needed , s/p Vit K po 2.5mg x 1 , CBC 8.1--->7.8--> 8.9-->9.5 today. # Afib- rate controlled. cont. Sotatolol , off coumadin now, PT/INR in am, will hold coumadin for now, pt/INR daily DVT ppx- SCD. supratherapeutic INR full liquid diet.
[2017-05-26] MEDS ORDERED: POTASSIUM PHOSPHATE 30 MM in DEXTROSE 5%-WATER - 250 ML IVPB ONE (09:15)
[2017-05-26] MEDS: LIDOCAINE 5% TOPICAL PATCH TP SCH (09:19)
[2017-05-26] MEDS: amLODIPine BESYLATE 10 MG TABLET (FP) PO SCH (09:22)
[2017-05-26] MEDS: CHOLECALCIFEROL (VITAMIN D3) 1,000 UNIT TABLET (FP) PO SCH (09:22)
[2017-05-26] MEDS: PANTOPRAZOLE SODIUM 100 ML IVPB SCH (09:23)
--- NOTE | 2017-05-26 10:06 | PN ---
Progress Note, Physician History of Present Illness: Awake, alert No complaints of abdominal pain Tolerating liquid diet Afebrile WBC WNL - Current Medication List Current Medications: Active Medications Acetaminophen (Tylenol -) 650 mg PO Q4H PRN PRN Reason: FEVER OR PAIN Last Admin: 05/25/17 21:30 Dose: 650 mg Amlodipine Besylate (Norvasc -) 10 mg PO DAILY [facility] Last Admin: 05/26/17 09:22 Dose: 10 mg Cholecalciferol (Vitamin D3 -) 2,000 unit PO DAILY [facility] Last Admin: 05/26/17 09:22 Dose: 2,000 unit Pantoprazole Sodium (Protonix 40mg Ivpb (Pre-Docked)) 100 mls @ 200 mls/hr IVPB DAILY [facility] Last Admin: 05/26/17 09:23 Dose: 200 mls/hr Piperacillin Sod/Tazobactam Sod (Zosyn 3.375gm Ivpb (Pre-Docked)) 50 mls @ 100 mls/hr IVPB Q8H-IV [facility] Last Admin: 05/26/17 09:23 Dose: 100 mls/hr Potassium Phosphate 30 mm/ (Dextrose) 260 mls @ 65 mls/hr IVPB ONCE ONE PRN Reason: 30 MM/4 HR Stop: 05/26/17 13:14 Lidocaine (Lidoderm Patch -) 1 patch TP DAILY [facility] Last Admin: 05/26/17 09:19 Dose: 1 patch Lidocaine/Aluminum/Magnesium/Simeth (Magic Mouthwash *Sjr Formula* -) 15 ml MM Q6HPO [facility] Last Admin: 05/26/17 06:09 Dose: Not Given Miscellaneous (Lidoderm Patch Removal) 1 each MC DAILY@2200 [facility] Last Admin: 05/25/17 21:29 Dose: 1 each Morphine Sulfate (Morphine Injection -) 2 mg IVPUSH Q4H PRN PRN Reason: PAIN Non-Formulary Medication (Patient's Own Med) 1 each NR DAILY [facility] Sotalol HCl (Betapace -) 120 mg PO HS [facility] Last Admin: 05/25/17 21:29 Dose: 120 mg Sotalol HCl (Betapace -) 40 mg PO AM [facility] Last Admin: 05/26/17 06:05 Dose: 40 mg Sotalol HCl (Betapace -) 80 mg PO DAILY@1200 [facility] Last Admin: 05/25/17 12:28 Dose: 80 mg - Objective Vital Signs: Vital Signs Temperature 98.1 F 05/26/17 07:53 Pulse Rate 49 L 05/26/17 07:53 Respiratory Rate 18 05/26/17 07:53 Blood Pressure 145/66 05/26/17 07:53 O2 Sat by Pulse Oximetry (%) 99 05/24/17 21:00 Constitutional: Yes: No Distress Eyes: Yes: Conjunctiva Clear Cardiovascular: Yes: Regular Rate and Rhythm, S1, S2 Respiratory: Yes: CTA Bilaterally Gastrointestinal: Yes: Normal Bowel Sounds, Soft. No: Tenderness Labs: CBC, BMP 05/26/17 05:50 05/26/17 05:50 INR, PTT INR 5.13 (0.82-1.09) H* D 05/26/17 05:50 Assessment/Plan Ischemic colitis MDS MALT Contine zosyn Advance diet as tolerated
--- NOTE | 2017-05-26 12:32 | PN ---
Progress Note (short form) - Note Progress Note: OOB to chair. Feels better today. Has been tolerating clears. No CP or SOB. Intake & Output 05/23/17 05/24/17 05/25/17 05/26/17 23:59 23:59 23:59 23:59 Intake Total 1600 2100 3040 500 Output Total 900 Balance 700 2100 3040 500 Weight 126 lb 11.2 oz 124 lb 12.506 oz Last Vital Signs Temp Pulse Resp BP Pulse Ox 98.1 F 49 L 18 145/66 98 05/26/17 07:53 05/26/17 07:53 05/26/17 08:00 05/26/17 07:53 05/26/17 08:00 Active Medications Acetaminophen (Tylenol -) 650 mg PO Q4H PRN PRN Reason: FEVER OR PAIN Last Admin: 05/25/17 21:30 Dose: 650 mg Amlodipine Besylate (Norvasc -) 10 mg PO DAILY [facility] Last Admin: 05/26/17 09:22 Dose: 10 mg Cholecalciferol (Vitamin D3 -) 2,000 unit PO DAILY [facility] Last Admin: 05/26/17 09:22 Dose: 2,000 unit Pantoprazole Sodium (Protonix 40mg Ivpb (Pre-Docked)) 100 mls @ 200 mls/hr IVPB DAILY [facility] Last Admin: 05/26/17 09:23 Dose: 200 mls/hr Piperacillin Sod/Tazobactam Sod (Zosyn 3.375gm Ivpb (Pre-Docked)) 50 mls @ 100 mls/hr IVPB Q8H-IV [facility] Last Admin: 05/26/17 09:23 Dose: 100 mls/hr Potassium Phosphate 30 mm/ (Dextrose) 260 mls @ 65 mls/hr IVPB ONCE ONE PRN Reason: 30 MM/4 HR Stop: 05/26/17 13:14 Last Admin: 05/26/17 11:57 Dose: 65 mls/hr Lidocaine (Lidoderm Patch -) 1 patch TP DAILY [facility] Last Admin: 05/26/17 09:19 Dose: 1 patch Lidocaine/Aluminum/Magnesium/Simeth (Magic Mouthwash *Sjr Formula* -) 15 ml MM Q6HPO [facility] Last Admin: 05/26/17 11:58 Dose: Not Given Miscellaneous (Lidoderm Patch Removal) 1 each MC DAILY@2200 [facility] Last Admin: 05/25/17 21:29 Dose: 1 each Morphine Sulfate (Morphine Injection -) 2 mg IVPUSH Q4H PRN PRN Reason: PAIN Non-Formulary Medication (Patient's Own Med) 1 each NR DAILY [facility] Sotalol HCl (Betapace -) 120 mg PO HS [facility] Last Admin: 05/25/17 21:29 Dose: 120 mg Sotalol HCl (Betapace -) 40 mg PO AM [facility] Last Admin: 05/26/17 06:05 Dose: 40 mg Sotalol HCl (Betapace -) 80 mg PO DAILY@1200 [facility] Last Admin: 05/26/17 11:58 Dose: 80 mg Gen: Awake and alert, NAD Heart: S1S2 regular Lung: decreased breath sounds at the bases Abd: softly distended, (+) BS, (+) Minimal tenderness to palpation, (-) guarding Ext: (+) edema Neuro: Non-focal Laboratory Results - last 24 hr 05/26/17 05/26/17 05/26/17 05:50 05:50 05:50 WBC 8.2 RBC 3.74 Hgb 9.5 L Hct 29.5 L MCV 78.8 L MCH 25.3 L MCHC 32.2 RDW 18.2 H Plt Count 302 MPV 8.4 Neutrophils % 82.4 Lymphocytes % 6.9 L Monocytes % 6.2 Eosinophils % 3.4 Basophils % 1.1 INR Sodium 141 Potassium 3.5 Chloride 109 H Carbon Dioxide 25 Anion Gap 7 L BUN 12 Creatinine 0.6 Creat Clearance w eGFR > 60 Random Glucose 87 Calcium 8.0 L Phosphorus 1.8 L D Magnesium 1.8 Total Bilirubin 0.9 AST 25 ALT 22 Alkaline Phosphatase 113 C-Reactive Protein 2.7 H D Total Protein 5.2 L Albumin 2.8 L 05/26/17 05:50 WBC RBC Hgb Hct MCV MCH MCHC RDW Plt Count MPV Neutrophils % Lymphocytes % Monocytes % Eosinophils % Basophils % INR 5.13 H* D Sodium Potassium Chloride Carbon Dioxide Anion Gap BUN Creatinine Creat Clearance w eGFR Random Glucose Calcium Phosphorus Magnesium Total Bilirubin AST ALT Alkaline Phosphatase C-Reactive Protein Total Protein Albumin ASSESSMENT AND PLAN: Acute Abdomen Suspected Ischemic Colitis Atrial Fibrillation Myeloproliferative Disorder Anemia Lymphoma HTN GERD - ABX per ID - Pain control - Clears as tolerated - Rate control - AC for INR 2-3 - DNR/DNI Dr Zuleta
--- NOTE | 2017-05-26 13:14 | PN ---
Progress Note (short form) - Note Progress Note: S: 86 year old female with known case of paroxysmal atrial fibrillation, hypertension, myelodysplastic syndrome, thrombocytosis, anemia, Tucker's thyroiditis, history of IBS, anxiety disorder, and depression. Admitted with a history of a fall and had been complaining of constipation and received multiple laxatives and developed an acute abdomen and diarrhea. No history of palpitations, chest pain or discomfort. No dyspnea, PND, or orthopnea reported. Patient complains of significant fatigue. Remains in sinus rhythm.No further abdominal discomfort,no diarrhea. INR is O: 86 year old male/female was in no acute distress. Pallor + No cyanosis, clubbing, or jaundice. Vital Signs - 24 hr 05/25/17 05/25/17 05/25/17 15:01 17:00 21:00 Temperature 98.3 F 98.7 F Pulse Rate 59 L 56 L Respiratory 20 20 20 Rate Blood Pressure 128/54 148/53 O2 Sat by Pulse Oximetry (%) 05/25/17 05/26/17 05/26/17 22:00 02:00 06:00 Temperature 97.5 F L 98.1 F 97.7 F Pulse Rate 59 L 51 L 54 L Respiratory 16 16 16 Rate Blood Pressure 166/63 151/57 156/72 O2 Sat by Pulse Oximetry (%) 05/26/17 05/26/17 07:53 08:00 Temperature 98.1 F Pulse Rate 49 L Respiratory 18 18 Rate Blood Pressure 145/66 O2 Sat by Pulse 98 Oximetry (%) NECK: Supple, no JVD, negative HJR, carotids were equal and upstrokes were normal, no thyromegaly appreciated. HEART: PMI was in the 5th intercostal space, no heaves or thrills, S1 and S2 were normal. Non ejection systolic click along the left sternal border and apex. No murmur or gallops were heard. LUNGS: Clear on auscultation bilaterally. ABDOMEN: Distended, mild diffuse tenderness, no rebound tenderness, no hepatosplenomegaly appreciated, and no palpable masses were felt. Bowel sounds were heard. EXTREMITIES: No calf tenderness or dependent edema. Pulses are normal. Laboratory Last Values Laboratory Results - last 24 hr 05/26/17 05/26/17 05/26/17 05:50 05:50 05:50 WBC 8.2 RBC 3.74 Hgb 9.5 L Hct 29.5 L MCV 78.8 L MCH 25.3 L MCHC 32.2 RDW 18.2 H Plt Count 302 MPV 8.4 Neutrophils % 82.4 Lymphocytes % 6.9 L Monocytes % 6.2 Eosinophils % 3.4 Basophils % 1.1 INR Sodium 141 Potassium 3.5 Chloride 109 H Carbon Dioxide 25 Anion Gap 7 L BUN 12 Creatinine 0.6 Creat Clearance w eGFR > 60 Random Glucose 87 Calcium 8.0 L Phosphorus 1.8 L D Magnesium 1.8 Total Bilirubin 0.9 AST 25 ALT 22 Alkaline Phosphatase 113 C-Reactive Protein 2.7 H D Total Protein 5.2 L Albumin 2.8 L 05/26/17 05:50 WBC RBC Hgb Hct MCV MCH MCHC RDW Plt Count MPV Neutrophils % Lymphocytes % Monocytes % Eosinophils % Basophils % INR 5.13 H* D Sodium Potassium Chloride Carbon Dioxide Anion Gap BUN Creatinine Creat Clearance w eGFR Random Glucose Calcium Phosphorus Magnesium Total Bilirubin AST ALT Alkaline Phosphatase C-Reactive Protein Total Protein Albumin Impression: 1. History of paroxysmal atrial fibrillation. 2. Auscultatory finding suggestive of mitral valve prolapse. 3. Hypertension. 4. Fatigue, probably related to anemia. 5. Myelodysplastic syndrome. 6. History of thrombocytosis, currently corrected. 7. History of Tucker's thyroiditis. 8. Acute abdomen, resolving. 9. H/O Anemia. Recommendations: 1. Continue current cardiac medications. 2. Consider correction of anemia after consultation with hematology. 3. Increase ambulation. 4. Close follow up of INR. Problem List - Problems (1) Acute abdomen Code(s): R10.0 - ACUTE ABDOMEN (2) Hypertension Code(s): I10 - ESSENTIAL (PRIMARY) HYPERTENSION (3) A-fib Code(s): I48.91 - UNSPECIFIED ATRIAL FIBRILLATION Qualifiers: Atrial fibrillation type: paroxysmal Qualified Code(s): I48.0 - Paroxysmal atrial fibrillation (4) History of Tucker thyroiditis Code(s): Z86.39 - PERSONAL HISTORY OF ENDO, NUTRITIONAL AND METABOLIC DISEASE (5) Mitral valve prolapse syndrome Code(s): I34.1 - NONRHEUMATIC MITRAL (VALVE) PROLAPSE (6) Anemia Code(s): D64.9 - ANEMIA, UNSPECIFIED
--- NOTE | 2017-05-26 13:22 | PN ---
Progress Note (short form) - Note Progress Note: Patients seen and examined. She feels well today, able to tolerate the clears diet She did not feel the "cramps" today after the breakfast she is Out of bed to chair. Daughter at bedside General: appears in pain Extremities: No pallor or icterus, no pedal edema. Chest:CTA b/l Abdomen: No tenderness noted today, BS heard. Neuro: Alert, oriented, non-focal. CVS: Normal sinus rhythm, S1, S2, no gallop or murmur. H and N: R parotid mass palpable Lower extremities: 1+ pitting edema bilaterally CBC, BMP 05/26/17 05:50 05/26/17 05:50 INR, PTT INR 5.13 (0.82-1.09) H* D 05/26/17 05:50 Last Vital Signs Temp Pulse Resp BP Pulse Ox 98.1 F 49 L 18 145/66 98 05/26/17 07:53 05/26/17 07:53 05/26/17 08:00 05/26/17 07:53 05/26/17 08:00 Current Medications Generic Name Dose Route Start Last Admin Trade Name Freq PRN Reason Stop Dose Admin Acetaminophen 650 mg 05/25/17 19:46 05/25/17 21:30 Tylenol - PO 650 mg Q4H PRN Administration FEVER OR PAIN Amlodipine Besylate 10 mg 05/25/17 10:00 05/26/17 09:22 Norvasc - PO 10 mg DAILY MARGARITA Administration Cholecalciferol 2,000 unit 05/25/17 10:00 05/26/17 09:22 Vitamin D3 - PO 2,000 unit DAILY MARGARITA Administration Pantoprazole Sodium 100 mls @ 200 mls/hr 05/25/17 10:00 05/26/17 09:23 Protonix 40mg Ivpb (Pre-Docked) IVPB 200 mls/hr DAILY [facility] Administration Piperacillin Sod/Tazobactam Sod 50 mls @ 100 mls/hr 05/24/17 18:00 05/26/17 09: 23 Zosyn 3.375gm Ivpb (Pre-Docked) IVPB 100 mls/hr Q8H-IV [facility]ITA Administration Lidocaine 1 patch 05/25/17 10:00 05/26/17 09:19 Lidoderm Patch - TP 1 patch DAILY [facility] Administration Lidocaine/Aluminum/Magnesium/Simeth 15 ml 05/24/17 18:00 05/26/17 11:58 Magic Mouthwash *Sjr Formula* - MM Not Given Q6HPO MARGARITA Miscellaneous 1 each 05/24/17 22:00 05/25/17 21:29 Lidoderm Patch Removal MC 1 each DAILY@2200 MARGARITA Administration Morphine Sulfate 2 mg 05/25/17 12:06 Morphine Injection - IVPUSH Q4H PRN PAIN Non-Formulary Medication 1 each 05/25/17 10:00 Patient's Own Med NR DAILY [facility] Sotalol HCl 120 mg 05/24/17 22:00 05/25/17 21:29 Betapace - PO 120 mg HS MARGARITA Administration Sotalol HCl 40 mg 05/25/17 07:00 05/26/17 06:05 Betapace - PO 40 mg AM [facility] Administration Sotalol HCl 80 mg 05/25/17 12:00 05/26/17 11:58 Betapace - PO 80 mg DAILY@1200 MARGARITA Administration Assessment/Plan: Suspected ischemic colitis: -resolving -on conservative management with improvement, tolerating clears now -c diff negative Coagulopathy: -INR increase likely due to antibiotics -continue to hold coumadin -daily INR monitoring anemia: -will hold off on transfusion or procrit for now -will monitor cbc -will re-start Hydrea if the platelet count trends up around 500-600. MALT lymphoma of the Parotid: -Receiving RT as an OP. h/o Burnt ET -received procrit on 05/18/2017 Iron overload: -to be monitored, presently on no treatment Back pain from Compression fracture: -seen by Neurosurgery -conservative management -may need pain mgmt as an Out patient Misc: -advised to keep her legs elevated and she is off IVF, may improve LE edema Will follow
--- NOTE | 2017-05-26 15:18 | PN ---
GI Progress Note Subjective: GI NOte: Feels much better today. Is out of bed. Tolerating liquids today without pain. Had a pasty BM. NO bleeding. Has not required morphine today. - Objective Vital Signs: Vital Signs Temperature 98.2 F 05/26/17 14:00 Pulse Rate 66 05/26/17 14:00 Respiratory Rate 18 05/26/17 14:00 Blood Pressure 113/52 05/26/17 14:00 O2 Sat by Pulse Oximetry (%) 98 05/26/17 08:00 Constitutional: Calm ...Auscultate: Yes: Normoactive Bowel Sounds ...Palpate: Yes: Soft, Other (nontender) Labs: CBC, BMP 05/26/17 05:50 05/26/17 05:50 INR, PTT INR 5.13 (0.82-1.09) H* D 05/26/17 05:50 Laboratory Tests 05/25/17 05/26/17 05:20 05:50 Hgb 8.9 L D 9.5 L Hct 27.5 L 29.5 L Assessment/Plan Resolving ischemic colitis. Will try full liquids for dinner and soft diet in the AM.
[2017-05-26] MEDS ORDERED: clonazePAM 0.5 MG TABLET PO ONE (15:52)
--- NOTE | 2017-05-26 15:58 | PN ---
Physical Exam: SUBJECTIVE: Patient seen and examined this AM. Sitting in chair, with makeup, smiling. Daughter at bedside. Pain has decreased. No CP, no SOB, no fevers, no chills. OBJECTIVE: Vital Signs Period Temp Pulse Resp BP Sys/Conde Pulse Ox Last 24 Hr 97.5 F-98.7 F 49-66 16-20 113-166/52-72 98 GENERAL: The patient is awake, alert, sitting upright in bed, not in distress, looks better than yesterday EYES: PERRL, extraocular movements intact ENT: Dry mucous membranes, R sided tongue bluish discoloration, R sided yellow circular tongue sores NECK: Neck was supple, not tender to palpation. Mildly limited ROM of neck, discomfort with movement LUNGS: Breath sounds equal, upper lung hernández were clear to auscultation bilaterally HEART: Bradycardic rate, regular rhythm, S1, S2 +2/6 systolic murmur heard best in the tricuspid region ABDOMEN: Protuberant abdomen which is unchanged, softer, no guarding, no rebound tenderness, normal bowel sounds EXTREMITIES: 2+ pulses, warm, well-perfused, no edema. Telangiectasias present on extremities. Tenderness to palpation of the mid/lower back. NEUROLOGICAL: Patient is oriented to person, place, and month. Cranial nerves II through XII were intact. Sensation was intact in the face and body bilaterally. Muscle strength was 5/5 in all extremities. Reflexes were 2+ in all extremities. FTN test was intact. Vibratory sensation and proprioception was intact. Gait was not observed. Laboratory Results - last 24 hr 05/26/17 05/26/17 05/26/17 05:50 05:50 05:50 WBC 8.2 RBC 3.74 Hgb 9.5 L Hct 29.5 L MCV 78.8 L MCH 25.3 L MCHC 32.2 RDW 18.2 H Plt Count 302 MPV 8.4 Neutrophils % 82.4 Lymphocytes % 6.9 L Monocytes % 6.2 Eosinophils % 3.4 Basophils % 1.1 INR Sodium 141 Potassium 3.5 Chloride 109 H Carbon Dioxide 25 Anion Gap 7 L BUN 12 Creatinine 0.6 Creat Clearance w eGFR > 60 Random Glucose 87 Calcium 8.0 L Phosphorus 1.8 L D Magnesium 1.8 Total Bilirubin 0.9 AST 25 ALT 22 Alkaline Phosphatase 113 C-Reactive Protein 2.7 H D Total Protein 5.2 L Albumin 2.8 L 05/26/17 05:50 WBC RBC Hgb Hct MCV MCH MCHC RDW Plt Count MPV Neutrophils % Lymphocytes % Monocytes % Eosinophils % Basophils % INR 5.13 H* D Sodium Potassium Chloride Carbon Dioxide Anion Gap BUN Creatinine Creat Clearance w eGFR Random Glucose Calcium Phosphorus Magnesium Total Bilirubin AST ALT Alkaline Phosphatase C-Reactive Protein Total Protein Albumin Active Medications Generic Name Dose Route Start Last Admin Trade Name Freq PRN Reason Stop Dose Admin Acetaminophen 650 mg 05/25/17 19:46 05/25/17 21:30 Tylenol - PO 650 mg Q4H PRN Administration FEVER OR PAIN Amlodipine Besylate 10 mg 05/25/17 10:00 05/26/17 09:22 Norvasc - PO 10 mg DAILY MARGARITA Administration Cholecalciferol 2,000 unit 05/25/17 10:00 05/26/17 09:22 Vitamin D3 - PO 2,000 unit DAILY MARGARITA Administration Pantoprazole Sodium 100 mls @ 200 mls/hr 05/25/17 10:00 05/26/17 09:23 Protonix 40mg Ivpb (Pre-Docked) IVPB 200 mls/hr DAILY MARGARITA Administration Piperacillin Sod/Tazobactam Sod 50 mls @ 100 mls/hr 05/24/17 18:00 05/26/17 09: 23 Zosyn 3.375gm Ivpb (Pre-Docked) IVPB 100 mls/hr Q8H-IV MARGARITA Administration Lactobacillus Acidophilus 1 tab 05/27/17 10:00 Bacid - PO DAILY MARGARITA Lidocaine 1 patch 05/25/17 10:00 05/26/17 09:19 Lidoderm Patch - TP 1 patch DAILY MARGARITA Administration Lidocaine/Aluminum/Magnesium/Simeth 15 ml 05/24/17 18:00 05/26/17 11:58 Magic Mouthwash *Sjr Formula* - MM Not Given Q6HPO MARGARITA Miscellaneous 1 each 05/24/17 22:00 05/25/17 21:29 Lidoderm Patch Removal MC 1 each DAILY@2200 MARGARITA Administration Morphine Sulfate 2 mg 05/25/17 12:06 Morphine Injection - IVPUSH Q4H PRN PAIN Non-Formulary Medication 1 each 05/25/17 10:00 Patient's Own Med NR DAILY MARGARITA Sotalol HCl 120 mg 05/24/17 22:00 05/25/17 21:29 Betapace - PO 120 mg HS MARGARITA Administration Sotalol HCl 40 mg 05/25/17 07:00 05/26/17 06:05 Betapace - PO 40 mg AM MARGARITA Administration Sotalol HCl 80 mg 05/25/17 12:00 05/26/17 11:58 Betapace - PO 80 mg DAILY@1200 MARGARITA Administration ASSESSMENT/PLAN: Patient is an 86yo F with PMHx of Afib on Coumadin, 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 She was brought by EMS after a mechanical fall and was admitted for r/ o bleed. She developed possible ischemic colitis and was transferred to the ICU for further management. # Suspected Acute Ischemic Colitis / Infectious Colitis - Patient likely lost fluids after episode of emesis and high volume diarrhea - Lactate negative, less likely severe infarction - Abdominal CT showed signs of colitis but no perforation, no pnuematosis, no obstruction, +ileus - As per ID, d/c'd Flagyl 500mg Q8 IV, continue Zosyn 3.75 Q8 IV to cover for possible infectious component to colitis, WBC WNL, afebrile - Surgery states no intervention at this time - GI agrees with conservative therapy, pt on clears, adv to full clears tonight --> soft by tomorrow if tolerating # Hx of Afib with Supratherapeutic INR - resolved (INR 2.73) - Could possibly be a combination of low PO intake + pain medications for back pain, given 2.5mg PO vit K x1 - Coumadin was held, pt had episode of dark brown emesis attributed to epithelial cell shedding, dark stool was only trace guiac positive, FOBT negative; no active bleeds - INR now supratherapeutic, hold Coumadin, recheck INR tmrw - Was on Sotalol 80mg PO TID for rate control, changed regimen as per Cardiology : 40mg AM + 80mg afternoon + 120mg HS # Anemia - Patient has transfusion dependent anemia, maintained on Epo 1-2x weekly - S/p 1 unit PRBC, Hgb improved. Today 9.5, no transfusion needed as per heme/ onc - No signs of active bleeding at this time # S/p mechanical fall - Pt was on Couamdin, but CT scans of head and abd/pelvis ruled out any acute bleeds # Mild T12 Compression Fracture - Neurosurgery recommends conservative management, pain has improved - D/c'd Tramadol after INR jump - D/c'd narcotics bc of constipation - Pt on standby Tylenol 650mg Q8 PRN, but informed patient about interaction w/ Coumadin # Diarrhea - resolved - s/p aggressive bowel regimen - Ordered C.diff panel - negative # HTN - well controlled - Pt on Amlodipine 10mg PO QD and Sotalol PO 40mg AM + 80mg afternoon + 120mg HS # Anxiety - Pt at home takes clonazepam 0.5mg PO BID, will place on standby PRN # 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 - Pt has hx of transfusion dependent anemia, maintained on Epo 1-2x weekly - Given Epo 40,000 U x1 in the hospital - Per Oncology, stopped hydroxyurea for PLT count, but will restart if PLTs are between 500-600 - Radiation treatment to be determined by oncology # 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 Hung Visit type - Emergency Visit Emergency Visit: No - New Patient This patient is new to me today: No - Critical Care Critical Care patient: No - Discharge Referral Referred to [facility] Med P.C.: No
[2017-05-26] MEDS: LIDOCAINE PATCH REMOVAL MC SCH (21:23)
[2017-05-27] MEDS: PIPERACILLIN/TAZOB 3.375 GM 50 ML IVPB SCH ×2 (01:00→03:14)
[2017-05-27] MEDS: MAG HYDROX/ALH/SMC/DPHA/LIDO 240 ML MOUTHWASH MM SCH ×4 (01:36→17:38)
[2017-05-27] MEDS: SOTALOL HCL 80 MG TABLET (FP) PO SCH ×3 (06:00→21:56)
[2017-05-27 07:11] LABS: MCH 25.1 pg (25.7-33.7); MCHC 31.9 g/dl (32.0-36.0); MEAN CELL VOLUME 78.8 fl (80-96); MEAN PLT VOLUME 8.1 fl (7.5-11.1); PLATELET COUNT 310 K/MM3 (134-434); RDW 18.8 % (11.6-15.6); WHITE BLOOD COUNT 9.2 K/mm3 (4.0-10.0)
[2017-05-27 07:26] LABS: PROTHROMBIN TIME (PATIENT) 52.4 SEC (9.98-11.88)
[2017-05-27 07:33] LABS: INR 4.62 (0.82-1.09)
[2017-05-27 07:34] LABS: ANION GAP 7 (8-16); CALCIUM 7.9 mg/dL (8.5-10.1); CO2 25 mmol/L (21-32); CREATININE 0.6 mg/dL (0.55-1.02); GLUCOSE,RANDOM 91 mg/dL (74-106)
--- NOTE | 2017-05-27 08:12 | PN ---
<Maryse Hung - Last Filed: 05/27/17 16:25> Physical Exam: SUBJECTIVE: Patient seen and examined this AM. Abdominal pain is much better today. Back pain only with movement. Pt is tolerating diet advancement well. No Cp, SOB, fevers, chills. Pt states she still feels weak this morning, but overall better. As per nurse, pt had 3 episodes of soft stools (not diarrhea) yesterday. Occasional missed beats on tele, but no alarming events. OBJECTIVE: Vital Signs Period Temp Pulse Resp BP Sys/Conde Pulse Ox Last 24 Hr 97.8 F-98.3 F 62-77 16-20 113-153/52-69 98 GENERAL: The patient is awake, alert, sitting upright in bed, not in distress, looks better than yesterday EYES: PERRL, extraocular movements intact ENT: Dry mucous membranes, R sided tongue bluish discoloration, R sided yellow circular tongue sores NECK: Neck was supple, not tender to palpation. Mildly limited ROM of neck, discomfort with movement LUNGS: Breath sounds equal, upper lung hernández were clear to auscultation bilaterally HEART: Bradycardic rate, regular rhythm, S1, S2 +2/6 systolic murmur heard best in the tricuspid region ABDOMEN: Protuberant abdomen which is unchanged, soft, no guarding, no rebound tenderness, hyperactive bowel sounds EXTREMITIES: 2+ pulses, warm, well-perfused, no edema. Telangiectasias present on extremities. Tenderness to palpation of the mid/lower back. 1+ edema in BLLE NEUROLOGICAL: Patient is oriented to person, place, and month. Cranial nerves II through XII were intact. Sensation was intact in the face and body bilaterally. Muscle strength was 5/5 in all extremities. Reflexes were 2+ in all extremities. FTN test was intact. Vibratory sensation and proprioception was intact. Gait was not observed. Laboratory Results - last 24 hr 05/26/17 05/26/17 05/26/17 05:50 05:50 05:50 WBC 8.2 RBC 3.74 Hgb 9.5 L Hct 29.5 L MCV 78.8 L MCH 25.3 L MCHC 32.2 RDW 18.2 H Plt Count 302 MPV 8.4 Neutrophils % 82.4 Lymphocytes % 6.9 L Monocytes % 6.2 Eosinophils % 3.4 Basophils % 1.1 INR Sodium 141 Potassium 3.5 Chloride 109 H Carbon Dioxide 25 Anion Gap 7 L BUN 12 Creatinine 0.6 Creat Clearance w eGFR > 60 Random Glucose 87 Calcium 8.0 L Phosphorus 1.8 L D Magnesium 1.8 Total Bilirubin 0.9 AST 25 ALT 22 Alkaline Phosphatase 113 C-Reactive Protein 2.7 H D Total Protein 5.2 L Albumin 2.8 L 05/26/17 05/27/17 05/27/17 05:50 05:35 05:35 WBC 9.2 RBC 3.70 Hgb 9.3 L Hct 29.2 L MCV 78.8 L MCH 25.1 L MCHC 31.9 L RDW 18.8 H Plt Count 310 MPV 8.1 Neutrophils % Lymphocytes % Monocytes % Eosinophils % Basophils % INR 5.13 H* D 4.62 H* Sodium Potassium Chloride Carbon Dioxide Anion Gap BUN Creatinine Creat Clearance w eGFR Random Glucose Calcium Phosphorus Magnesium Total Bilirubin AST ALT Alkaline Phosphatase C-Reactive Protein Total Protein Albumin 05/27/17 05:35 WBC RBC Hgb Hct MCV MCH MCHC RDW Plt Count MPV Neutrophils % Lymphocytes % Monocytes % Eosinophils % Basophils % INR Sodium 138 Potassium 3.5 Chloride 106 Carbon Dioxide 25 Anion Gap 7 L BUN 10 Creatinine 0.6 Creat Clearance w eGFR Random Glucose 91 Calcium 7.9 L Phosphorus Magnesium Total Bilirubin AST ALT Alkaline Phosphatase C-Reactive Protein Total Protein Albumin Active Medications Generic Name Dose Route Start Last Admin Trade Name Freq PRN Reason Stop Dose Admin Acetaminophen 650 mg 05/25/17 19:46 05/25/17 21:30 Tylenol - PO 650 mg Q4H PRN Administration FEVER OR PAIN Amlodipine Besylate 10 mg 05/25/17 10:00 05/26/17 09:22 Norvasc - PO 10 mg DAILY MARGARITA Administration Cholecalciferol 2,000 unit 05/25/17 10:00 05/26/17 09:22 Vitamin D3 - PO 2,000 unit DAILY MARGARITA Administration Pantoprazole Sodium 100 mls @ 200 mls/hr 05/25/17 10:00 05/26/17 09:23 Protonix 40mg Ivpb (Pre-Docked) IVPB 200 mls/hr DAILY MARGARITA Administration Piperacillin Sod/Tazobactam Sod 50 mls @ 100 mls/hr 05/24/17 18:00 05/27/17 03: 14 Zosyn 3.375gm Ivpb (Pre-Docked) IVPB Not Given Q8H-IV MARGARITA Lactobacillus Acidophilus 1 tab 05/27/17 10:00 Bacid - PO DAILY MARGARITA Lidocaine 1 patch 05/25/17 10:00 05/26/17 09:19 Lidoderm Patch - TP 1 patch DAILY MARGARITA Administration Lidocaine/Aluminum/Magnesium/Simeth 15 ml 05/24/17 18:00 05/27/17 05:55 Magic Mouthwash *Sjr Formula* - MM Not Given Q6HPO MARGARITA Miscellaneous 1 each 05/24/17 22:00 05/26/17 21:23 Lidoderm Patch Removal MC 1 each DAILY@2200 MARGARITA Administration Non-Formulary Medication 1 each 05/25/17 10:00 Patient's Own Med NR DAILY MARGARITA Sotalol HCl 120 mg 05/24/17 22:00 05/26/17 21:22 Betapace - PO 120 mg HS MARGARITA Administration Sotalol HCl 40 mg 05/25/17 07:00 05/27/17 06:00 Betapace - PO 40 mg AM MAGRARITA Administration Sotalol HCl 80 mg 05/25/17 12:00 05/26/17 11:58 Betapace - PO 80 mg DAILY@1200 MARGARITA Administration ASSESSMENT/PLAN: Patient is an 86yo F with PMHx of Afib on Coumadin, 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 She was brought by EMS after a mechanical fall and was admitted for r/ o bleed. She developed possible ischemic colitis and was transferred to the ICU for further management. # Suspected Acute Ischemic Colitis / Infectious Colitis - Patient likely lost fluids after episode of emesis and high volume diarrhea - Lactate negative, less likely severe infarction - Abdominal CT showed signs of colitis but no perforation, no pnuematosis, no obstruction, +ileus - To cover for possible infectious component pt was on Zosyn but discontinued due to possible C.diff - Surgery states no intervention at this time - GI agrees with conservative therapy, pt on full clears --> pt will have soft diet today # Hx of Afib with Supratherapeutic INR - resolved (INR 2.73) - Could possibly be a combination of low PO intake + pain medications for back pain, given 2.5mg PO vit K x1 + antibiotics - Coumadin was held, pt had episode of dark brown emesis attributed to epithelial cell shedding, dark stool was only trace guiac positive, FOBT negative; no active bleeds - INR now supratherapeutic, hold Coumadin, recheck INR tmrw - Was on Sotalol 80mg PO TID for rate control, changed regimen as per Cardiology : 40mg AM + 80mg afternoon + 120mg HS # Diarrhea - Pt initially had diarrhea s/p aggressive bowel regimen - Ordered C.diff panel initially - negative - Pt now presenting with soft stool + weakness, ordered new C. diff panel by ID , discontinued all antibiotics # Anemia - Patient has transfusion dependent anemia, maintained on Epo 1-2x weekly - S/p 1 unit PRBC, Hgb improved. Today 9.3, no transfusion needed as per heme/ onc - No signs of active bleeding at this time # S/p mechanical fall - Pt was on Couamdin, but CT scans of head and abd/pelvis ruled out any acute bleeds # Mild T12 Compression Fracture - Neurosurgery recommends conservative management, pain has improved - D/c'd Tramadol after INR jump - D/c'd narcotics bc of constipation - Pt on standby Tylenol 650mg Q8 PRN, but informed patient about interaction w/ Coumadin # HTN - well controlled - Pt on Amlodipine 10mg PO QD and Sotalol PO 40mg AM + 80mg afternoon + 120mg HS # Anxiety - Pt at home takes clonazepam 0.5mg PO BID, will place on standby PRN # 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 - Pt has hx of transfusion dependent anemia, maintained on Epo 1-2x weekly - Given Epo 40,000 U x1 in the hospital - Per Oncology, stopped hydroxyurea for PLT count, but will restart if PLTs are between 500-600 - Radiation treatment to be determined by oncology # 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 Hung Visit type - Emergency Visit Emergency Visit: No - New Patient This patient is new to me today: No - Critical Care Critical Care patient: No - Discharge Referral Referred to [facility] Med P.C.: No <Janeth Arias - Last Filed: 05/27/17 16:35> Physical Exam: SUBJECTIVE: Patient seen and examined OBJECTIVE: Vital Signs Period Temp Pulse Resp BP Sys/Conde Pulse Ox Last 24 Hr 97.8 F-99 F 62-77 16-20 132-153/58-76 96-98 GENERAL: The patient is awake, alert, and fully oriented, in no acute distress. HEAD: Normal with no signs of trauma. EYES: PERRL, extraocular movements intact, sclera anicteric, conjunctiva clear. No ptosis. ENT: Ears normal, nares patent, oropharynx clear without exudates, moist mucous membranes. NECK: Trachea midline, full range of motion, supple. LUNGS: Breath sounds equal, clear to auscultation bilaterally, no wheezes, no crackles, no accessory muscle use. HEART: Regular rate and rhythm, S1, S2 without murmur, rub or gallop. ABDOMEN: Soft, nontender, nondistended, normoactive bowel sounds, no guarding, no rebound, no hepatosplenomegaly, no masses. EXTREMITIES: 2+ pulses, warm, well-perfused, no edema. NEUROLOGICAL: Cranial nerves II through XII grossly intact. Normal speech, gait not observed. PSYCH: Normal mood, normal affect. SKIN: Warm, dry, normal turgor, no rashes or lesions noted Laboratory Results - last 24 hr 05/27/17 05/27/17 05/27/17 05:35 05:35 05:35 WBC 9.2 RBC 3.70 Hgb 9.3 L Hct 29.2 L MCV 78.8 L MCH 25.1 L MCHC 31.9 L RDW 18.8 H Plt Count 310 MPV 8.1 INR 4.62 H* Sodium 138 Potassium 3.5 Chloride 106 Carbon Dioxide 25 Anion Gap 7 L BUN 10 Creatinine 0.6 Random Glucose 91 Calcium 7.9 L Active Medications Generic Name Dose Route Start Last Admin Trade Name Gaston PRN Reason Stop Dose Admin Acetaminophen 650 mg 05/25/17 19:46 05/25/17 21:30 Tylenol - PO 650 mg Q4H PRN Administration FEVER OR PAIN Amlodipine Besylate 10 mg 05/25/17 10:00 05/27/17 09:57 Norvasc - PO 10 mg DAILY MARGARITA Administration Cholecalciferol 2,000 unit 05/25/17 10:00 05/27/17 09:57 Vitamin D3 - PO 2,000 unit DAILY MARGARITA Administration Pantoprazole Sodium 100 mls @ 200 mls/hr 05/25/17 10:00 05/27/17 09:57 Protonix 40mg Ivpb (Pre-Docked) IVPB 200 mls/hr DAILY MARGARITA Administration Lactobacillus Acidophilus 1 tab 05/27/17 10:00 05/27/17 09:58 Bacid - PO 1 tab DAILY MARGARITA Administration Lidocaine 1 patch 05/25/17 10:00 05/27/17 09:58 Lidoderm Patch - TP 1 patch DAILY MARGARITA Administration Lidocaine/Aluminum/Magnesium/Simeth 15 ml 05/24/17 18:00 05/27/17 12:30 Magic Mouthwash *Sjr Formula* - MM 15 ml Q6HPO MARGARITA Administration Metronidazole 250 mg 05/27/17 22:00 Flagyl - PO TID MARGARITA Miscellaneous 1 each 05/24/17 22:00 05/26/17 21:23 Lidoderm Patch Removal MC 1 each DAILY@2200 MARGARITA Administration Non-Formulary Medication 1 each 05/25/17 10:00 Patient's Own Med NR DAILY MARGARITA Sotalol HCl 120 mg 05/24/17 22:00 05/26/17 21:22 Betapace - PO 120 mg HS MARGARITA Administration Sotalol HCl 40 mg 05/25/17 07:00 05/27/17 06:00 Betapace - PO 40 mg AM MARGARITA Administration Sotalol HCl 80 mg 05/25/17 12:00 05/27/17 12:30 Betapace - PO 80 mg DAILY@1200 MARGARITA Administration ASSESSMENT/PLAN: Laboratory Tests 05/16/17 05/17/17 05/18/17 18:22 06:38 06:00 INR 2.31 H D 2.79 H 2.58 H Phosphorus Magnesium 05/19/17 05/20/1717 06:00 06:25 05:35 INR 2.22 H 2.07 H 4.73 H* D Phosphorus Magnesium 05/21/17 05/22/17 05/22/17 INR 11:15 05:45 05:45 INR 5.93 H* 8.48 H* D Phosphorus 2.3 L D Magnesium 2.2 05/22/17 05/23/17 05/24/17 15:00 05:05 05:10 INR 9.42 H* 2.31 H D 2.73 H Phosphorus Magnesium 05/25/17 05/26/17 05/26/17 05:20 05:50 05:50 INR 3.94 H D 5.13 H* D Phosphorus 1.8 L D Magnesium 05/27/17 05:35 INR 4.62 H* Phosphorus Magnesium Correction INR is 4.62 today will repeat in am.
[2017-05-27] MEDS ORDERED: PT OWN MED DRAWER 7, Y5N ONE (08:52)
--- NOTE | 2017-05-27 09:39 | PN ---
Progress Note, Physician Chief Complaint: ID Says she is weak today and having loose bowel movement noting tis happens when she is on antibiotics!! Divinesystefano continues - Current Medication List Current Medications: Active Medications Acetaminophen (Tylenol -) 650 mg PO Q4H PRN PRN Reason: FEVER OR PAIN Last Admin: 05/25/17 21:30 Dose: 650 mg Amlodipine Besylate (Norvasc -) 10 mg PO DAILY [facility] Last Admin: 05/26/17 09:22 Dose: 10 mg Cholecalciferol (Vitamin D3 -) 2,000 unit PO DAILY [facility] Last Admin: 05/26/17 09:22 Dose: 2,000 unit Pantoprazole Sodium (Protonix 40mg Ivpb (Pre-Docked)) 100 mls @ 200 mls/hr IVPB DAILY [facility] Last Admin: 05/26/17 09:23 Dose: 200 mls/hr Piperacillin Sod/Tazobactam Sod (Zosyn 3.375gm Ivpb (Pre-Docked)) 50 mls @ 100 mls/hr IVPB Q8H-IV [facility] Last Admin: 05/27/17 03:14 Dose: Not Given Lactobacillus Acidophilus (Bacid -) 1 tab PO DAILY [facility] Lidocaine (Lidoderm Patch -) 1 patch TP DAILY [facility] Last Admin: 05/26/17 09:19 Dose: 1 patch Lidocaine/Aluminum/Magnesium/Simeth (Magic Mouthwash *Sjr Formula* -) 15 ml MM Q6HPO [facility] Last Admin: 05/27/17 05:55 Dose: Not Given Miscellaneous (Lidoderm Patch Removal) 1 each MC DAILY@2200 [facility] Last Admin: 05/26/17 21:23 Dose: 1 each Non-Formulary Medication (Patient's Own Med) 1 each NR DAILY [facility] Sotalol HCl (Betapace -) 120 mg PO HS [facility] Last Admin: 05/26/17 21:22 Dose: 120 mg Sotalol HCl (Betapace -) 40 mg PO AM [facility] Last Admin: 05/27/17 06:00 Dose: 40 mg Sotalol HCl (Betapace -) 80 mg PO DAILY@1200 MARGARITA Last Admin: 05/26/17 11:58 Dose: 80 mg - Objective Vital Signs: Vital Signs Temperature 98.3 F 05/27/17 06:00 Pulse Rate 67 05/27/17 06:00 Respiratory Rate 16 05/27/17 06:00 Blood Pressure 153/66 05/27/17 06:00 O2 Sat by Pulse Oximetry (%) 98 05/26/17 21:00 Constitutional: Yes: Well Nourished, No Distress Eyes: Yes: WNL, Conjunctiva Clear HENT: Yes: WNL, Atraumatic Neck: Yes: WNL, Supple Cardiovascular: Yes: Regular Rate and Rhythm, S1, S2. No: Murmur Respiratory: Yes: WNL, Regular, CTA Bilaterally. No: Poor Air Entry, Rales, Rhonchi Gastrointestinal: Yes: Soft, Distention. No: Tenderness, Tenderness, Epigastrium, Tenderness, Rebound Edema: No Labs: CBC, BMP 05/27/17 05:35 05/27/17 05:35 INR, PTT INR 4.62 (0.82-1.09) H* 05/27/17 05:35 Problem List - Problems (1) Myeloproliferative disease Code(s): D47.1 - CHRONIC MYELOPROLIFERATIVE DISEASE (2) Ischemic colitis, enteritis, or enterocolitis Code(s): K55.9 - VASCULAR DISORDER OF INTESTINE, UNSPECIFIED (3) Peritonitis Code(s): K65.9 - PERITONITIS, UNSPECIFIED (4) Compression fracture of lumbar vertebra Code(s): S32.000A - WEDGE COMPRESSION FRACTURE OF UNSP LUMBAR VERTEBRA, INIT Qualifiers: Encounter type: initial encounter Fracture type: closed Qualified Code(s): S32.000A - Wedge compression fracture of unspecified lumbar vertebra, initial encounter for closed fracture Assessment/Plan Laboratory Tests 05/27/17 05/27/17 05/27/17 05:35 05:35 05:35 WBC 9.2 Hgb 9.3 L Hct 29.2 L Plt Count 310 INR 4.62 H* BUN 10 Creatinine 0.6 Assessment Ischemic colitis on antibiotics several days Diarrhea ?? Consider antibiotic related Coagulopathy of course antibiotics might contribute Plan Stop Zosyn Send stool for C diff toxin Discussed with sharon Lee MD
[2017-05-27] MEDS: CHOLECALCIFEROL (VITAMIN D3) 1,000 UNIT TABLET (FP) PO SCH (09:57)
[2017-05-27] MEDS: amLODIPine BESYLATE 10 MG TABLET (FP) PO SCH (09:57)
[2017-05-27] MEDS: PANTOPRAZOLE SODIUM 100 ML IVPB SCH (09:57)
[2017-05-27] MEDS: LACTOBACILLUS ACIDOPHILUS 1 EACH TAB (FP) PO SCH (09:58)
[2017-05-27] MEDS: LIDOCAINE 5% TOPICAL PATCH TP SCH (09:58)
--- NOTE | 2017-05-27 16:24 | PN ---
Teaching Attending Note Name of Resident: Maryse Hung ATTENDING PHYSICIAN STATEMENT I saw and evaluated the patient. I reviewed the resident's note and discussed the case with the resident. I agree with the resident's findings and plan as documented. SUBJECTIVE: Patient is comfortable with no acute distress, no shortness of breath. Has no further abdominal pain, no nausea or vomiting. Continues to have low back pain moira. when they move her. OBJECTIVE: Vital Signs Temperature 99 F 05/27/17 14:00 Pulse Rate 74 05/27/17 14:00 Respiratory Rate 20 05/27/17 14:00 Blood Pressure 147/63 05/27/17 14:00 O2 Sat by Pulse Oximetry (%) 96 05/27/17 09:00 CBCD WBC 9.2 K/mm3 (4.0-10.0) 05/27/17 05:35 RBC 3.70 M/mm3 (3.60-5.2) 05/27/17 05:35 Hgb 9.3 GM/dL (10.7-15.3) L 05/27/17 05:35 Hct 29.2 % (32.4-45.2) L 05/27/17 05:35 MCV 78.8 fl (80-96) L 05/27/17 05:35 MCHC 31.9 g/dl (32.0-36.0) L 05/27/17 05:35 RDW 18.8 % (11.6-15.6) H 05/27/17 05:35 Plt Count 310 K/MM3 (134-434) 05/27/17 05:35 MPV 8.1 fl (7.5-11.1) 05/27/17 05:35 CMP Sodium 138 mmol/L (136-145) 05/27/17 05:35 Potassium 3.5 mmol/L (3.5-5.1) 05/27/17 05:35 Chloride 106 mmol/L (98-107) 05/27/17 05:35 Carbon Dioxide 25 mmol/L (21-32) 05/27/17 05:35 Anion Gap 7 (8-16) L 05/27/17 05:35 BUN 10 mg/dL (7-18) 05/27/17 05:35 Creatinine 0.6 mg/dL (0.55-1.02) 05/27/17 05:35 Creat Clearance w eGFR > 60 (>60) 05/26/17 05:50 Random Glucose 91 mg/dL (74-106) 05/27/17 05:35 Calcium 7.9 mg/dL (8.5-10.1) L 05/27/17 05:35 Total Bilirubin 0.9 mg/dL (0.2-1.0) 05/26/17 05:50 AST 25 U/L (15-37) 05/26/17 05:50 ALT 22 U/L (12-78) 05/26/17 05:50 Alkaline Phosphatase 113 U/L (45-117) 05/26/17 05:50 Total Protein 5.2 g/dl (6.4-8.2) L 05/26/17 05:50 Albumin 2.8 g/dl (3.4-5.0) L 05/26/17 05:50 CARDIAC ENZYMES Creatine Kinase 39 IU/L (26-192) 05/22/17 13:42 Troponin I 0.02 ng/ml (0.00-0.05) 05/22/17 13:42 Current Medications Generic Name Dose Route Start Last Admin Trade Name Freq PRN Reason Stop Dose Admin Acetaminophen 650 mg 05/25/17 19:46 05/25/17 21:30 Tylenol - PO 650 mg Q4H PRN Administration FEVER OR PAIN Amlodipine Besylate 10 mg 05/25/17 10:00 05/27/17 09:57 Norvasc - PO 10 mg DAILY MARGARITA Administration Cholecalciferol 2,000 unit 05/25/17 10:00 05/27/17 09:57 Vitamin D3 - PO 2,000 unit DAILY MARGARITA Administration Pantoprazole Sodium 100 mls @ 200 mls/hr 05/25/17 10:00 05/27/17 09:57 Protonix 40mg Ivpb (Pre-Docked) IVPB 200 mls/hr DAILY MARGARITA Administration Lactobacillus Acidophilus 1 tab 05/27/17 10:00 05/27/17 09:58 Bacid - PO 1 tab DAILY MARGARITA Administration Lidocaine 1 patch 05/25/17 10:00 05/27/17 09:58 Lidoderm Patch - TP 1 patch DAILY MARGARITA Administration Lidocaine/Aluminum/Magnesium/Simeth 15 ml 05/24/17 18:00 05/27/17 12:30 Magic Mouthwash *Sjr Formula* - MM 15 ml Q6HPO MARGARITA Administration Miscellaneous 1 each 05/24/17 22:00 05/26/17 21:23 Lidoderm Patch Removal MC 1 each DAILY@2200 MARGARITA Administration Non-Formulary Medication 1 each 05/25/17 10:00 Patient's Own Med NR DAILY MARGARITA Sotalol HCl 120 mg 05/24/17 22:00 05/26/17 21:22 Betapace - PO 120 mg HS MARGARITA Administration Sotalol HCl 40 mg 05/25/17 07:00 05/27/17 06:00 Betapace - PO 40 mg AM MARGARITA Administration Sotalol HCl 80 mg 05/25/17 12:00 05/27/17 12:30 Betapace - PO 80 mg DAILY@1200 MARGARITA Administration Home Medications Medication Instructions Recorded Amlodipine Besylate [Norvasc -] 10 mg PO DAILY #0 tablet 05/13/13 Clonazepam [Klonopin] 0.5 mg PO BID 04/21/14 Hydroxyurea [Hydrea 500Mg Capsule 500 mg PO DAILY 04/21/14 -] Ranitidine [Zantac -] 150 mg PO BID 06/10/15 Sotalol HCl [Sotalol] 80 mg PO TID 06/10/15 Warfarin Na [Coumadin -] 4 mg PO DAILY 06/10/15 Cholecalciferol (Vitamin D3) 2,000 unit PO DAILY 03/22/16 [Vitamin D3] Epoetin Chris [Procrit] 0 unit IJ ASDIR 09/11/16 Cranberry 400 mg PO DAILY 02/21/17 Mag Hydrox/Alh/Smc/Dpha/Lido 15 ml MM Q6HPO #1 mouthwash 05/16/17 [Magic Mouthwash *Sjr Formula* -] Pot Sor/Hy-Ethylcel/Pvp/Hyalur 15 ml MM DAILY #1 gel.packet 05/16/17 [Gelclair Oral Gel Packet] Systane Ultra 0.4-0.3% Eye Drp TID 05/18/17 Laboratory Tests 05/16/17 05/17/17 05/18/17 18:22 06:38 06:00 INR 2.31 H D 2.79 H 2.58 H Phosphorus Magnesium 05/19/17 05/20/17 05/21/17 06:00 06:25 05:35 INR 2.22 H 2.07 H 4.73 H* D Phosphorus Magnesium 05/21/17 05/22/17 05/22/17 11:15 05:45 05:45 INR 5.93 H* 8.48 H* D Phosphorus 2.3 L D Magnesium 2.2 05/22/17 05/23/17 05/24/17 15:00 05:05 05:10 INR 9.42 H* 2.31 H D 2.73 H Phosphorus Magnesium 05/25/17 05/26/17 05/26/17 05:20 05:50 05:50 INR 3.94 H D 5.13 H* D Phosphorus 1.8 L D Magnesium 05/27/17 05:35 INR 4.62 H* Phosphorus Magnesium PE: soft abdomen, no further tenderness. Rest of PE per resident's note. ASSESSMENT AND PLAN: 86 y/o lady with h/o Lymphoma on radiation , myelo-proliferative disease ,HTN , A fib on coumadin and other medical problems who presented after a mechanical fall. # Acute hypophosphotemia :s/p 30mmol kphos will repeat her level in am. # Acute Colitis improving Off IV Antibiotics Zosyn now as per ID but will continue with po Flagyl discussed with ID. # T12 fracture- will stay away from Tylenol since can elevated INR. Off Morphine prn since can cause Ileus, will continue prn tylenol . # Supratherapeutic INR; improving but INR 2.7-->3.94--5.13-->4.62 today , FFP if needed, s/p Vit K po 2.5mg x 1 , CBC 8.1--->7.8--> 8.9-->9.5--9.3today. # Afib- rate controlled. cont. Sotatolol , off coumadin now, PT/INR in am, continue to hold coumadin for now, pt/INR daily DVT ppx- SCD. supratherapeutic INR full liquid diet--> advanced to soft diet today.
--- NOTE | 2017-05-27 19:47 | PN ---
Progress Note (short form) - Note Progress Note: 86 year old female with known case of paroxysmal atrial fibrillation, hypertension, myelodysplastic syndrome, thrombocytosis, anemia, Tucker's thyroiditis, history of IBS, anxiety disorder, and depression.c/o of generalised weakness, and had several loose bowel movements. No history of palpitations, chest pain or discomfort. No shortness of breath. O: 86 year old male/female was in no acute distress. Pallor + No cyanosis, clubbing, or jaundice. Vital Signs - 24 hr Vital Signs - 24 hr 05/26/17 05/26/17 05/27/17 21:00 22:00 02:00 Temperature 98.1 F 98.1 F Pulse Rate 77 64 Respiratory 20 16 16 Rate Blood Pressure 152/69 144/61 O2 Sat by Pulse 98 Oximetry (%) 05/27/17 05/27/17 05/27/17 06:00 09:00 09:48 Temperature 98.3 F 98.5 F Pulse Rate 67 62 Respiratory 16 16 Rate Blood Pressure 153/66 144/76 O2 Sat by Pulse 96 Oximetry (%) 05/27/17 05/27/17 14:00 18:00 Temperature 99 F 98.9 F Pulse Rate 74 75 Respiratory 20 18 Rate Blood Pressure 147/63 145/77 O2 Sat by Pulse Oximetry (%) NECK: Supple, no JVD, negative HJR, carotids were equal and upstrokes were normal, no thyromegaly appreciated. HEART: PMI was in the 5th intercostal space, no heaves or thrills, S1 and S2 were normal. Non ejection systolic click along the left sternal border and apex. No murmur or gallops were heard. LUNGS: Clear on auscultation bilaterally. ABDOMEN: Distended, mild diffuse tenderness, no rebound tenderness, no hepatosplenomegaly appreciated, and no palpable masses were felt. Bowel sounds were heard. EXTREMITIES: No calf tenderness or dependent edema. Pulses are normal. Laboratory Last Values Laboratory Results - last 24 hr Abnormal Lab Results 05/27/17 05/27/17 05/27/17 05:35 05:35 05:35 Hgb 9.3 L Hct 29.2 L MCV 78.8 L MCH 25.1 L MCHC 31.9 L RDW 18.8 H INR 4.62 H* Anion Gap 7 L Calcium 7.9 L Impression: 1. Hypertension. 2. Auscultatory finding suggestive of mitral valve prolapse. 3.Paroxysmal atrial fibrillation 4. Fatigue, probably related to anemia. 5. Myelodysplastic syndrome. 6. History of thrombocytosis, currently corrected. 7. History of Tucker's thyroiditis. 8. H/O acute abdomen Recommendations: 1. Continue current cardiac medications. 2. Increase ambulation. 3. Close follow up of INR. Problem List - Problems (1) Acute abdomen Code(s): R10.0 - ACUTE ABDOMEN (2) Hypertension Code(s): I10 - ESSENTIAL (PRIMARY) HYPERTENSION (3) A-fib Code(s): I48.91 - UNSPECIFIED ATRIAL FIBRILLATION Qualifiers: Atrial fibrillation type: paroxysmal Qualified Code(s): I48.0 - Paroxysmal atrial fibrillation (4) History of Tucker thyroiditis Code(s): Z86.39 - PERSONAL HISTORY OF ENDO, NUTRITIONAL AND METABOLIC DISEASE (5) Mitral valve prolapse syndrome Code(s): I34.1 - NONRHEUMATIC MITRAL (VALVE) PROLAPSE (6) Anemia Code(s): D64.9 - ANEMIA, UNSPECIFIED
--- NOTE | 2017-05-27 20:19 | PN ---
Progress Note (short form) - Note Progress Note: Patient seen and examined Complains of tiredness and fatigue. No bowel movements since last night . Back pain persists with any movement . Was able to get OOB x 40 minutes today. No chest pains Last Vital Signs Temp Pulse Resp BP Pulse Ox 98.9 F 75 18 145/77 96 05/27/17 18:00 05/27/17 18:00 05/27/17 18:00 05/27/17 18:00 05/27/17 09:00 HEENT: ROSITA, EOM Intact Oropharynx: No thrush, No mucositis Neck: Supple Nodes: Without adenopathy Breasts: Without masses Cor: RSR, systolic murmur Lungs: diminished breath sounds RLL Abd: distended; non specific tenderness; active bowel sounds LE 3-4+ edema Ext:No significant edema Skin: Integument intact, generalized macular erythematous rash LE (old) CBC, BMP 05/27/17 05:35 05/27/17 05:35 Current Medications Generic Name Dose Route Start Last Admin Trade Name Freq PRN Reason Stop Dose Admin Acetaminophen 650 mg 05/25/17 19:46 05/25/17 21:30 Tylenol - PO 650 mg Q4H PRN Administration FEVER OR PAIN Amlodipine Besylate 10 mg 05/25/17 10:00 05/27/17 09:57 Norvasc - PO 10 mg DAILY MARGARITA Administration Cholecalciferol 2,000 unit 05/25/17 10:00 05/27/17 09:57 Vitamin D3 - PO 2,000 unit DAILY MARGARITA Administration Pantoprazole Sodium 100 mls @ 200 mls/hr 05/25/17 10:00 05/27/17 09:57 Protonix 40mg Ivpb (Pre-Docked) IVPB 200 mls/hr DAILY MARGARITA Administration Lactobacillus Acidophilus 1 tab 05/27/17 10:00 05/27/17 09:58 Bacid - PO 1 tab DAILY MARGARITA Administration Lidocaine 1 patch 05/25/17 10:00 05/27/17 09:58 Lidoderm Patch - TP 1 patch DAILY MARGARITA Administration Lidocaine/Aluminum/Magnesium/Simeth 15 ml 05/24/17 18:00 05/27/17 17:38 Magic Mouthwash *Sjr Formula* - MM 15 ml Q6HPO MARGARITA Administration Metronidazole 250 mg 05/27/17 22:00 Flagyl - PO TID MARGARITA Miscellaneous 1 each 05/24/17 22:00 05/26/17 21:23 Lidoderm Patch Removal MC 1 each DAILY@2200 MARGARITA Administration Non-Formulary Medication 1 each 05/25/17 10:00 Patient's Own Med NR DAILY MARGARITA Sotalol HCl 120 mg 05/24/17 22:00 05/26/17 21:22 Betapace - PO 120 mg HS MARGARITA Administration Sotalol HCl 40 mg 05/25/17 07:00 05/27/17 06:00 Betapace - PO 40 mg AM MARGARITA Administration Sotalol HCl 80 mg 05/25/17 12:00 05/27/17 12:30 Betapace - PO 80 mg DAILY@1200 MARGARITA Administration Microbiology 05/22/17 15:00 Blood - Peripheral Venous Blood Culture - Final NO GROWTH AFTER 5 DAYS INCUBATION 05/22/17 15:08 Blood - Peripheral Venous Blood Culture - Final NO GROWTH AFTER 5 DAYS INCUBATION Abnormal Lab Results 05/27/17 05/27/17 05/27/17 05:35 05:35 05:35 Hgb 9.3 L Hct 29.2 L MCV 78.8 L MCH 25.1 L MCHC 31.9 L RDW 18.8 H INR 4.62 H* Anion Gap 7 L Calcium 7.9 L Impression: Ischemic colitis--on p.o. Flagyl PAF- per cardiology- current meds Compression Fx- back -s/p fall MPD-- hydrea being held - will resume pending CBC Coagulopathy - likely secondary to poor p.o. and antibiotics- to monitor Anemia-- MPD/chronic / cute disease. Plan: Holding hydrea and to resume pending CBC Antibiotics per ID Monitoring of INR- may need low dose Vimin K - but can monitor off a/c for now. Rehab.
[2017-05-27] MEDS: metroNIDAZOLE 250 MG TABLET PO SCH (21:56)
[2017-05-27] MEDS: LIDOCAINE PATCH REMOVAL MC SCH (21:57)
[2017-05-28] MEDS: MAG HYDROX/ALH/SMC/DPHA/LIDO 240 ML MOUTHWASH MM SCH ×4 (01:16→17:34)
[2017-05-28] MEDS: SOTALOL HCL 80 MG TABLET (FP) PO SCH ×3 (06:38→21:29)
[2017-05-28] MEDS: metroNIDAZOLE 250 MG TABLET PO SCH ×2 (06:50→14:19)
[2017-05-28 08:00] LABS: ALBUMIN 2.6 g/dl (3.4-5.0); ALK PHOS 167 U/L (45-117); ANION GAP 9 (8-16); CALCIUM 8.1 mg/dL (8.5-10.1); CO2 25 mmol/L (21-32); CREATININE 0.5 mg/dL (0.55-1.02); GLUCOSE,RANDOM 91 mg/dL (74-106); PHOSPHOROUS 2.2 mg/dL (2.5-4.9); SGOT/AST 31 U/L (15-37); SGPT/ALT 21 U/L (12-78); TOT PROT 5.4 g/dl (6.4-8.2)
[2017-05-28 08:04] LABS: INR 2.15 (0.82-1.09)
[2017-05-28 09:20] LABS: BASOPHIL 1.4 % (0-2.0); EOSINOPHIL 3.2 % (0-4.5); MEAN CELL VOLUME 78.2 fl (80-96); MEAN PLT VOLUME 8.5 fl (7.5-11.1); NEUTROPHILS 79.6 % (42.8-82.8); PLATELET COUNT 287 K/MM3 (134-434); RDW 18.7 % (11.6-15.6); WHITE BLOOD COUNT 10.6 K/mm3 (4.0-10.0)
[2017-05-28] MEDS: LIDOCAINE 5% TOPICAL PATCH TP SCH (09:37)
[2017-05-28] MEDS: CHOLECALCIFEROL (VITAMIN D3) 1,000 UNIT TABLET (FP) PO SCH (09:38)
[2017-05-28] MEDS: LACTOBACILLUS ACIDOPHILUS 1 EACH TAB (FP) PO SCH (09:38)
[2017-05-28] MEDS: amLODIPine BESYLATE 10 MG TABLET (FP) PO SCH (09:39)
[2017-05-28] MEDS: PANTOPRAZOLE SODIUM 100 ML IVPB SCH (09:39)
--- NOTE | 2017-05-28 11:33 | PN ---
<Agaba,Comfort I - Last Filed: 05/28/17 15:57> Physical Exam: SUBJECTIVE: Patient seen and examined. Tolerating orally. Has now moved on to solids. Had loose stools yesterday, two episodes. Said she moved bowel once today, mushy. OBJECTIVE: Vital Signs Period Temp Pulse Resp BP Sys/Conde Pulse Ox Last 24 Hr 97.9 F-99 F 63-75 16-20 142-159/57-77 96 GENERAL: The patient is awake, alert, and fully oriented EYES:sclera anicteric, conjunctiva clear LUNGS: Breath sounds equal, clear to auscultation bilaterally, no wheezes, no crackles, no accessory muscle use. HEART: Regular rate and rhythm, S1, S2 ABDOMEN: Soft, normoactive bowel sounds, mild distension, nontender Laboratory Results - last 24 hr 05/28/17 05/28/17 05/28/17 05:35 05:35 08:50 WBC 10.6 H RBC 3.77 Hgb 9.4 L Hct 29.5 L MCV 78.2 L MCH 25.0 L MCHC 32.0 RDW 18.7 H Plt Count 287 MPV 8.5 Neutrophils % 79.6 Lymphocytes % 7.1 L Monocytes % 8.7 Eosinophils % 3.2 Basophils % 1.4 INR 2.15 H D Sodium 137 Potassium 3.6 Chloride 103 Carbon Dioxide 25 Anion Gap 9 BUN 10 Creatinine 0.5 L Creat Clearance w eGFR > 60 Random Glucose 91 Calcium 8.1 L Phosphorus 2.2 L D Total Bilirubin 1.0 AST 31 D ALT 21 Alkaline Phosphatase 167 H D Total Protein 5.4 L Albumin 2.6 L Active Medications Generic Name Dose Route Start Last Admin Trade Name Freq PRN Reason Stop Dose Admin Acetaminophen 650 mg 05/25/17 19:46 05/25/17 21:30 Tylenol - PO 650 mg Q4H PRN Administration FEVER OR PAIN Amlodipine Besylate 10 mg 05/25/17 10:00 05/28/17 09:39 Norvasc - PO 10 mg DAILY MARGARITA Administration Cholecalciferol 2,000 unit 05/25/17 10:00 05/28/17 09:38 Vitamin D3 - PO 2,000 unit DAILY MARGARITA Administration Pantoprazole Sodium 100 mls @ 200 mls/hr 05/25/17 10:00 05/28/17 09:39 Protonix 40mg Ivpb (Pre-Docked) IVPB 200 mls/hr DAILY MARGARITA Administration Lactobacillus Acidophilus 1 tab 05/27/17 10:00 05/28/17 09:38 Bacid - PO 1 tab DAILY MARGARITA Administration Lidocaine 1 patch 05/25/17 10:00 05/28/17 09:37 Lidoderm Patch - TP 1 patch DAILY MARGARITA Administration Lidocaine/Aluminum/Magnesium/Simeth 15 ml 05/24/17 18:00 05/28/17 06:38 Magic Mouthwash *Sjr Formula* - MM 15 ml Q6HPO MARGARITA Administration Metronidazole 250 mg 05/27/17 22:00 05/28/17 06:50 Flagyl - PO Not Given TID MARGARITA Miscellaneous 1 each 05/24/17 22:00 05/27/17 21:57 Lidoderm Patch Removal MC 1 each DAILY@2200 MARGARITA Administration Non-Formulary Medication 1 each 05/25/17 10:00 Patient's Own Med NR DAILY MARGARITA Sotalol HCl 120 mg 05/24/17 22:00 05/27/17 21:56 Betapace - PO 120 mg HS AMRGARITA Administration Sotalol HCl 40 mg 05/25/17 07:00 05/28/17 06:38 Betapace - PO 40 mg AM MARGARITA Administration Sotalol HCl 80 mg 05/25/17 12:00 05/27/17 12:30 Betapace - PO 80 mg DAILY@1200 MARGARITA Administration ASSESSMENT/PLAN: Continue feeds as tolerated Visit type - Emergency Visit Emergency Visit: No - New Patient This patient is new to me today: No - Critical Care Critical Care patient: No - Discharge Referral Referred to [facility] Med P.C[facility] No <Brandon Zambrano J - Last Filed: 05/28/17 17:15> Physical Exam: SUBJECTIVE: Patient seen and examined OBJECTIVE: Vital Signs Period Temp Pulse Resp BP Sys/Conde Pulse Ox Last 24 Hr 97.9 F-99.6 F 63-81 16-20 136-159/57-77 96-96 GENERAL: The patient is awake, alert, and fully oriented, in no acute distress. HEAD: Normal with no signs of trauma. EYES: PERRL, extraocular movements intact, sclera anicteric, conjunctiva clear. No ptosis. ENT: Ears normal, nares patent, oropharynx clear without exudates, moist mucous membranes. NECK: Trachea midline, full range of motion, supple. LUNGS: Breath sounds equal, clear to auscultation bilaterally, no wheezes, no crackles, no accessory muscle use. HEART: Regular rate and rhythm, S1, S2 without murmur, rub or gallop. ABDOMEN: Soft, nontender, nondistended, normoactive bowel sounds, no guarding, no rebound, no hepatosplenomegaly, no masses. EXTREMITIES: 2+ pulses, warm, well-perfused, no edema. NEUROLOGICAL: Cranial nerves II through XII grossly intact. Normal speech, gait not observed. PSYCH: Normal mood, normal affect. SKIN: Warm, dry, normal turgor, no rashes or lesions noted Laboratory Results - last 24 hr 05/28/17 05/28/17 05/28/17 05:35 05:35 08:50 WBC 10.6 H RBC 3.77 Hgb 9.4 L Hct 29.5 L MCV 78.2 L MCH 25.0 L MCHC 32.0 RDW 18.7 H Plt Count 287 MPV 8.5 Neutrophils % 79.6 Lymphocytes % 7.1 L Monocytes % 8.7 Eosinophils % 3.2 Basophils % 1.4 Basophilic Stippling 1+ Anisocytosis 2+ Microcytosis 2+ Macrocytosis 1+ Target Cells 4+ Tear Drop Cells 3+ Ovalocytes 1+ Fragmented RBCs 1+ Morphology Comment Slide scanned INR 2.15 H D Sodium 137 Potassium 3.6 Chloride 103 Carbon Dioxide 25 Anion Gap 9 BUN 10 Creatinine 0.5 L Creat Clearance w eGFR > 60 Random Glucose 91 Calcium 8.1 L Phosphorus 2.2 L D Total Bilirubin 1.0 AST 31 D ALT 21 Alkaline Phosphatase 167 H D Total Protein 5.4 L Albumin 2.6 L Active Medications Generic Name Dose Route Start Last Admin Trade Name Freq PRN Reason Stop Dose Admin Acetaminophen 650 mg 05/25/17 19:46 05/25/17 21:30 Tylenol - PO 650 mg Q4H PRN Administration FEVER OR PAIN Amlodipine Besylate 10 mg 05/25/17 10:00 05/28/17 09:39 Norvasc - PO 10 mg DAILY MARGARITA Administration Cholecalciferol 2,000 unit 05/25/17 10:00 05/28/17 09:38 Vitamin D3 - PO 2,000 unit DAILY MARGARITA Administration Lactobacillus Acidophilus 1 tab 05/27/17 10:00 05/28/17 09:38 Bacid - PO 1 tab DAILY MARGARITA Administration Lidocaine 1 patch 05/25/17 10:00 05/28/17 09:37 Lidoderm Patch - TP 1 patch DAILY MARGARITA Administration Lidocaine/Aluminum/Magnesium/Simeth 15 ml 05/24/17 18:00 05/28/17 14:22 Magic Mouthwash *Sjr Formula* - MM Not Given Q6HPO MARGARITA Miscellaneous 1 each 05/24/17 22:00 05/27/17 21:57 Lidoderm Patch Removal MC 1 each DAILY@2200 MARGARITA Administration Non-Formulary Medication 1 each 05/25/17 10:00 Patient's Own Med NR DAILY MARGARITA Sotalol HCl 120 mg 05/24/17 22:00 05/27/17 21:56 Betapace - PO 120 mg HS MARGARITA Administration Sotalol HCl 40 mg 05/25/17 07:00 05/28/17 06:38 Betapace - PO 40 mg AM MARGARITA Administration Sotalol HCl 80 mg 05/25/17 12:00 05/28/17 14:19 Betapace - PO 80 mg DAILY@1200 MARGARITA Administration Warfarin Sodium 4 mg 05/28/17 18:00 Coumadin - PO 05/28/17 18:01 ONCE@1800 ONE ASSESSMENT/PLAN: Abd is benign. Concur with present plan
[2017-05-28 12:30] LABS: ANISOCYTOSIS 2+; FRAGMENTED CELL 1+; MICROCYTOSIS 2+
[2017-05-28 12:31] LABS: OVALOCYTES 1+; TARGET CELLS 4+; TEAR DROP CELLS 3+
--- NOTE | 2017-05-28 12:58 | PN ---
Progress Note (short form) - Note Progress Note: one loose bm today no fevers no abdominal pain Vital Signs Period Temp Pulse Resp BP Sys/Conde Pulse Ox Last 24 Hr 97.9 F-99 F 63-75 16-20 142-159/57-77 96-96 cor-rrr lungs decreased bs at bases abd soft, nt +BS ext no edema CBC, BMP 05/28/17 08:50 05/28/17 05:35 Microbiology 05/22/17 15:00 Blood - Peripheral Venous Blood Culture - Final NO GROWTH AFTER 5 DAYS INCUBATION 05/22/17 15:08 Blood - Peripheral Venous Blood Culture - Final NO GROWTH AFTER 5 DAYS INCUBATION 05/24/17 09:00 Stool Clostridium difficile Antigen (ELLIOT) - Final 05/24/17 09:00 Stool Clostridium difficile Toxin Assay - Final a/p ischemic colitis resolved now with recurrent diarrhea- continue po flagyl until cdiff is back
--- NOTE | 2017-05-28 14:12 | PN ---
GI Progress Note Subjective: No abdominal pain States having had some loose BM's yesterday and this morning - Objective Vital Signs: Vital Signs Temperature 98.2 F 05/28/17 08:05 Pulse Rate 66 05/28/17 08:05 Respiratory Rate 16 05/28/17 08:05 Blood Pressure 142/64 05/28/17 08:05 O2 Sat by Pulse Oximetry (%) 96 05/28/17 09:00 Constitutional: Calm Eyes: No: Sclera Icterus Cardiovascular: Yes: Regular Rate and Rhythm, Murmur Respiratory: Yes: CTA Bilaterally Gastrointestinal Inspection: No: Distention ...Auscultate: Yes: Normoactive Bowel Sounds ...Palpate: No: Tenderness Edema: Yes Edema: LLE: 1+, RLE: 1+ Neurological: Yes: Alert, Oriented Labs: CBC, BMP 05/28/17 08:50 05/28/17 05:35 INR, PTT INR 2.15 (0.82-1.09) H D 05/28/17 05:35 Microbiology 05/28/17 08:00 Stool Clostridium difficile Antigen (ELLIOT) - Neg 05/28/17 08:00 Stool Clostridium difficile Toxin Assay - Neg Laboratory Tests 05/26/17 05:50 C-Reactive Protein 2.7 H D Problem List - Problems (1) Ischemic colitis Assessment/Plan: Clinically remains improved Stopped PO flagyl and protonix, may be contributing to diarrhea Bacid Low residue diet Code(s): K55.9 - VASCULAR DISORDER OF INTESTINE, UNSPECIFIED
--- NOTE | 2017-05-28 15:34 | CONS ---
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 She was admitted on the 12th after she had a mechanical fall at home. There was no syncope. She was found to have a T12 compression fracture. She developed constipation and then abdominal pain. The pain has been increasing in severity. She had no fevers. She was noted to develop a leukocytosis. CAT scan was done, which showed colitis. She had diarrhea as well yesterday after being treated for constipation, which is resolving. There is no recent outpatient antibiotic. Clostridium difficile has been ordered as well, and we are asked to see her for antibiotic recommendations. She was started on ceftriaxone and Flagyl the day prior to this consultation. Concerns by GI and Surgery has been raised for a possible ischemic colitis based on the pattern of the colitis on the CAT scan. PAST MEDICAL HISTORY: Notable for atrial fibrillation, hypertension, mitral valve prolapse, GERD, anemia, myeloproliferative syndrome, anxiety, allergic rhinitis, sinusitis, Tucker thyroiditis. PAST SURGICAL HISTORY: Notable for appendectomy, bilateral cataract removal, bilateral oophorectomy, and tonsillectomy. She has had lip cancer excised as well. SOCIAL HISTORY: She lives alone. She is . Her is in the care home. 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 No history of any recent travel. She is a former smoker. She quit 60 years ago. There is no history of any alcohol or substance use. ALLERGIES: PROPOXYPHENE NAPSYLATE, DARVOCET, and ASPIRIN. MEDICATIONS: At home include amlodipine, Klonopin, Hydrea, Zantac, sotalol, Coumadin, vitamin D, Procrit, Magic Mouthwash, oral gel packets, and Systane eye drops. FAMILY HISTORY: Notable for CVA in her father. REVIEW OF SYSTEMS: At the time I saw her was noted for severe abdominal pain. There was no history of any fever. PHYSICAL EXAMINATION: Vital Signs: Temperature 98.1, T-max 99, pulse 67, blood pressure 138/54, respiratory rate 17, O2 saturation 96% on 2 L. General: An alert woman in moderate distress due to abdominal pain. HEENT: She is normocephalic. Her eyes are anicteric. Neck: Supple. Lungs: Diminished breath sounds in the bases. Abdomen: Notable for hypoactive bowel sounds and diffuse tenderness and rebound on exam. Extremities: Without edema. Abdominal x-ray was pending. CAT scan findings, as previously stated, were notable for colitis. Labs were notable for the previous day white count of 10.6, the day I saw her of 6.5, hemoglobin 7.8, platelets 210. Chemistries were notable for a BUN 25, creatinine 0.9. In summary, this is an 86-year-old woman with suspected ischemic colitis. Stools for Clostridium difficile are pending as well. She has been started on ceftriaxone and Flagyl. Has been seen by Surgery and GI. She is for transfer to the ICU, and advanced directives are being addressed. Would send blood cultures and a stool for Clostridium difficile. Would treat her with piperacillin and tazobactam and Flagyl. IV fluids as well. Overall prognosis is quite guarded. Further recommendations to follow based on her clinical course. MAXI ARROYO M.D. [id number]
--- NOTE | 2017-05-28 17:14 | PN ---
Progress Note (short form) - Note Progress Note: GI NOte: Preeti tells me that she has not had any further BMs since this AM. No cramps Abd: BS normoactive, nontender Impression: Resolving ischemic colitis Plan: Discussed plan with Dr Eaton and Dr Mckinley and concur with the present plan
--- NOTE | 2017-05-28 17:15 | PN ---
Teaching Attending Note Name of Resident: Maryse Hung ATTENDING PHYSICIAN STATEMENT I saw and evaluated the patient. I reviewed the resident's note and discussed the case with the resident. I agree with the resident's findings and plan as documented. SUBJECTIVE: Patient is doing better but had another episode of diarrhea. No fever or chills. OBJECTIVE: Vital Signs Temperature 99.6 F 05/28/17 14:00 Pulse Rate 81 05/28/17 14:00 Respiratory Rate 20 05/28/17 14:00 Blood Pressure 136/65 05/28/17 14:00 O2 Sat by Pulse Oximetry (%) 96 05/28/17 09:00 CBCD WBC 10.6 K/mm3 (4.0-10.0) H 05/28/17 08:50 RBC 3.77 M/mm3 (3.60-5.2) 05/28/17 08:50 Hgb 9.4 GM/dL (10.7-15.3) L 05/28/17 08:50 Hct 29.5 % (32.4-45.2) L 05/28/17 08:50 MCV 78.2 fl (80-96) L 05/28/17 08:50 MCHC 32.0 g/dl (32.0-36.0) 05/28/17 08:50 RDW 18.7 % (11.6-15.6) H 05/28/17 08:50 Plt Count 287 K/MM3 (134-434) 05/28/17 08:50 MPV 8.5 fl (7.5-11.1) 05/28/17 08:50 CMP Sodium 137 mmol/L (136-145) 05/28/17 05:35 Potassium 3.6 mmol/L (3.5-5.1) 05/28/17 05:35 Chloride 103 mmol/L (98-107) 05/28/17 05:35 Carbon Dioxide 25 mmol/L (21-32) 05/28/17 05:35 Anion Gap 9 (8-16) 05/28/17 05:35 BUN 10 mg/dL (7-18) 05/28/17 05:35 Creatinine 0.5 mg/dL (0.55-1.02) L 05/28/17 05:35 Creat Clearance w eGFR > 60 (>60) 05/28/17 05:35 Random Glucose 91 mg/dL (74-106) 05/28/17 05:35 Calcium 8.1 mg/dL (8.5-10.1) L 05/28/17 05:35 Total Bilirubin 1.0 mg/dL (0.2-1.0) 05/28/17 05:35 AST 31 U/L (15-37) D 05/28/17 05:35 ALT 21 U/L (12-78) 05/28/17 05:35 Alkaline Phosphatase 167 U/L (45-117) H D 05/28/17 05:35 Total Protein 5.4 g/dl (6.4-8.2) L 05/28/17 05:35 Albumin 2.6 g/dl (3.4-5.0) L 05/28/17 05:35 CARDIAC ENZYMES Creatine Kinase 39 IU/L (26-192) 05/22/17 13:42 Troponin I 0.02 ng/ml (0.00-0.05) 05/22/17 13:42 Current Medications Generic Name Dose Route Start Last Admin Trade Name Freq PRN Reason Stop Dose Admin Acetaminophen 650 mg 05/25/17 19:46 05/25/17 21:30 Tylenol - PO 650 mg Q4H PRN Administration FEVER OR PAIN Amlodipine Besylate 10 mg 05/25/17 10:00 05/28/17 09:39 Norvasc - PO 10 mg DAILY MARGARITA Administration Cholecalciferol 2,000 unit 05/25/17 10:00 05/28/17 09:38 Vitamin D3 - PO 2,000 unit DAILY MARGARITA Administration Lactobacillus Acidophilus 1 tab 05/27/17 10:00 05/28/17 09:38 Bacid - PO 1 tab DAILY MARGARITA Administration Lidocaine 1 patch 05/25/17 10:00 05/28/17 09:37 Lidoderm Patch - TP 1 patch DAILY MARGARITA Administration Lidocaine/Aluminum/Magnesium/Simeth 15 ml 05/24/17 18:00 05/28/17 14:22 Magic Mouthwash *Sjr Formula* - MM Not Given Q6HPO MARGARITA Miscellaneous 1 each 05/24/17 22:00 05/27/17 21:57 Lidoderm Patch Removal MC 1 each DAILY@2200 MARGARITA Administration Non-Formulary Medication 1 each 05/25/17 10:00 Patient's Own Med NR DAILY MARGARITA Sotalol HCl 120 mg 05/24/17 22:00 05/27/17 21:56 Betapace - PO 120 mg HS MARGARITA Administration Sotalol HCl 40 mg 05/25/17 07:00 05/28/17 06:38 Betapace - PO 40 mg AM MARGARITA Administration Sotalol HCl 80 mg 05/25/17 12:00 05/28/17 14:19 Betapace - PO 80 mg DAILY@1200 MARGARITA Administration Warfarin Sodium 4 mg 05/28/17 18:00 Coumadin - PO 05/28/17 18:01 ONCE@1800 ONE Home Medications Medication Instructions Recorded Amlodipine Besylate [Norvasc -] 10 mg PO DAILY #0 tablet 05/13/13 Clonazepam [Klonopin] 0.5 mg PO BID 04/21/14 Hydroxyurea [Hydrea 500Mg Capsule 500 mg PO DAILY 04/21/14 -] Ranitidine [Zantac -] 150 mg PO BID 06/10/15 Sotalol HCl [Sotalol] 80 mg PO TID 06/10/15 Warfarin Na [Coumadin -] 4 mg PO DAILY 06/10/15 Cholecalciferol (Vitamin D3) 2,000 unit PO DAILY 03/22/16 [Vitamin D3] Epoetin Chris [Procrit] 0 unit IJ ASDIR 09/11/16 Cranberry 400 mg PO DAILY 02/21/17 Mag Hydrox/Alh/Smc/Dpha/Lido 15 ml MM Q6HPO #1 mouthwash 05/16/17 [Magic Mouthwash *Sjr Formula* -] Pot Sor/Hy-Ethylcel/Pvp/Hyalur 15 ml MM DAILY #1 gel.packet 05/16/17 [Gelclair Oral Gel Packet] Systane Ultra 0.4-0.3% Eye Drp TID 05/18/17 Microbiology 05/28/17 08:00 Stool Clostridium difficile Antigen (ELLIOT) - Final 05/28/17 08:00 Stool Clostridium difficile Toxin Assay - Final 05/22/17 15:00 Blood - Peripheral Venous Blood Culture - Final NO GROWTH AFTER 5 DAYS INCUBATION 05/22/17 15:08 Blood - Peripheral Venous Blood Culture - Final NO GROWTH AFTER 5 DAYS INCUBATION 05/24/17 09:00 Stool Clostridium difficile Antigen (ELLIOT) - Final 05/24/17 09:00 Stool Clostridium difficile Toxin Assay - Final PE: soft abdomen, no further tenderness. Rest of PE per resident's note. ASSESSMENT AND PLAN: 86 y/o lady with h/o Lymphoma on radiation , myelo-proliferative disease ,HTN , A fib on coumadin and other medical problems who presented after a mechanical fall. # Acute hypophosphotemia :s/p 30mmol kphos improved but the level is 2.2 will give her 15mmol of Kphos. # Acute Colitis improving Off IV Antibiotics Zosyn and will discontinue Flagyl . Negative for Cdiff toxin and Antigen. # T12 fracture- Off Morphine prn since can cause Ileus, will continue prn tylenol now. # Supratherapeutic INR; improved , INR 2.7-->3.94--5.13-->4.62-->2.17 today , FFP if needed, s/p Vit K po 2.5mg x 1 , CBC 8.1--->7.8--> 8.9-->9.5--9.3-->9.4 today. # Afib- rate controlled. cont. Sotatolol , deisi restart coumadin now, PT/INR daily DVT ppx- SCD. supratherapeutic INR full liquid diet--> advanced to soft diet today. POssible discharge in am.
[2017-05-28] MEDS ORDERED: WARFARIN NA 2 MG TABLET (UD) PO ONE (18:00)
[2017-05-28] MEDS ORDERED: POTASSIUM PHOSPHATE 15 MM in DEXTROSE 5%-WATER - 250 ML IVPB ONE (21:23)
--- NOTE | 2017-05-28 21:32 | PN ---
Physical Exam: SUBJECTIVE: Patient seen and examined this AM. No Complaints. Abd pain improved. Back pain only hurts with movement. No fevers, no chills, no CP, no SOB. OBJECTIVE: Vital Signs Period Temp Pulse Resp BP Sys/Conde Pulse Ox Last 24 Hr 97.9 F-99.6 F 63-81 16-20 136-159/57-74 96-96 GENERAL: The patient is awake, alert, sitting upright in bed, not in distress, looks better than yesterday EYES: PERRL, extraocular movements intact ENT: Dry mucous membranes, R sided tongue bluish discoloration, R sided yellow circular tongue sores NECK: Neck was supple, not tender to palpation. Mildly limited ROM of neck, discomfort with movement LUNGS: Breath sounds equal, upper lung hernández were clear to auscultation bilaterally HEART: Bradycardic rate, regular rhythm, S1, S2 +2/6 systolic murmur heard best in the tricuspid region ABDOMEN: Protuberant abdomen which is unchanged, soft, no guarding, no rebound tenderness, normoactive bowel sounds EXTREMITIES: 2+ pulses, warm, well-perfused, no edema. Telangiectasias present on extremities. 1+ edema in BLLE NEUROLOGICAL: Patient is oriented to person, place, and month. Cranial nerves II through XII were intact. Sensation was intact in the face and body bilaterally. Muscle strength was 5/5 in all extremities. Reflexes were 2+ in all extremities. FTN test was intact. Vibratory sensation and proprioception was intact. Gait was not observed. Laboratory Results - last 24 hr 05/28/17 05/28/17 05/28/17 05:35 05:35 08:50 WBC 10.6 H RBC 3.77 Hgb 9.4 L Hct 29.5 L MCV 78.2 L MCH 25.0 L MCHC 32.0 RDW 18.7 H Plt Count 287 MPV 8.5 Neutrophils % 79.6 Lymphocytes % 7.1 L Monocytes % 8.7 Eosinophils % 3.2 Basophils % 1.4 Basophilic Stippling 1+ Anisocytosis 2+ Microcytosis 2+ Macrocytosis 1+ Target Cells 4+ Tear Drop Cells 3+ Ovalocytes 1+ Fragmented RBCs 1+ Morphology Comment Slide scanned INR 2.15 H D Sodium 137 Potassium 3.6 Chloride 103 Carbon Dioxide 25 Anion Gap 9 BUN 10 Creatinine 0.5 L Creat Clearance w eGFR > 60 Random Glucose 91 Calcium 8.1 L Phosphorus 2.2 L D Total Bilirubin 1.0 AST 31 D ALT 21 Alkaline Phosphatase 167 H D Total Protein 5.4 L Albumin 2.6 L Active Medications Generic Name Dose Route Start Last Admin Trade Name Freq PRN Reason Stop Dose Admin Acetaminophen 650 mg 05/25/17 19:46 05/25/17 21:30 Tylenol - PO 650 mg Q4H PRN Administration FEVER OR PAIN Amlodipine Besylate 10 mg 05/25/17 10:00 05/28/17 09:39 Norvasc - PO 10 mg DAILY MRAGARITA Administration Cholecalciferol 2,000 unit 05/25/17 10:00 05/28/17 09:38 Vitamin D3 - PO 2,000 unit DAILY MARGARITA Administration Potassium Phosphate 15 mm/ 255 mls @ 62.5 mls/hr 05/28/17 21:23 Dextrose IVPB 05/29/17 01:27 ONCE ONE Lactobacillus Acidophilus 1 tab 05/27/17 10:00 05/28/17 09:38 Bacid - PO 1 tab DAILY MARGARITA Administration Lidocaine 1 patch 05/25/17 10:00 05/28/17 09:37 Lidoderm Patch - TP 1 patch DAILY MARGARITA Administration Miscellaneous 1 each 05/24/17 22:00 05/27/17 21:57 Lidoderm Patch Removal MC 1 each DAILY@2200 MARGARITA Administration Non-Formulary Medication 1 each 05/25/17 10:00 Patient's Own Med NR DAILY MARGARITA Sotalol HCl 120 mg 05/24/17 22:00 05/27/17 21:56 Betapace - PO 120 mg HS MARGARITA Administration Sotalol HCl 40 mg 05/25/17 07:00 05/28/17 06:38 Betapace - PO 40 mg AM MARGARITA Administration Sotalol HCl 80 mg 05/25/17 12:00 05/28/17 14:19 Betapace - PO 80 mg DAILY@1200 MARGARITA Administration IMAGING: Abdominal CT showed signs of colitis but no perforation, no pnuematosis, no obstruction, +ileus ASSESSMENT/PLAN: Patient is an 86yo F with PMHx of Afib on Coumadin, 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 She was brought by EMS after a mechanical fall and was admitted for r/ o bleed. She developed possible ischemic colitis and was transferred to the ICU for further management. # Suspected Acute Ischemic Colitis / Infectious Colitis - Patient likely lost fluids after episode of emesis and high volume diarrhea + possible superimposed infection - Pt was on Flagyl 500mg Q8 IV x 2 days + Zosyn 3.75 Q8 IV x 5 days - now on no antibiotics, improving - Surgery states no intervention at this time - GI agrees with conservative therapy, pt on low residue diet today, tolerated well # Hx of Afib with Supratherapeutic INR - resolved (INR 2.73) - Could possibly be a combination of low PO intake + pain medications for back pain, given 2.5mg PO vit K x1 + antibiotics - No active bleeds during hospitalization - Pt to receive Warfarin 4mg tonight. - Was on Sotalol 80mg PO TID for rate control, changed regimen as per Cardiology : 40mg AM + 80mg afternoon + 120mg HS # Diarrhea - resolved - Pt no longer has diarrhea, C. diff negative # Anemia - Patient has transfusion dependent anemia, maintained on Epo 1-2x weekly, received 1 unit in hospital - Today 9.4, no transfusion needed as per heme/onc # S/p mechanical fall - Pt was on Couamdin, but CT scans of head and abd/pelvis ruled out any acute bleeds # Mild T12 Compression Fracture - Neurosurgery recommends conservative management, pain has improved - D/c'd Tramadol after INR jump - D/c'd narcotics bc of constipation - Pt on standby Tylenol 650mg Q8 PRN, but informed patient about interaction w/ Coumadin # HTN - well controlled - Pt on Amlodipine 10mg PO QD and Sotalol PO 40mg AM + 80mg afternoon + 120mg HS # Anxiety - Pt at home takes clonazepam 0.5mg PO BID, will place on standby PRN # 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 - Pt has hx of transfusion dependent anemia, maintained on Epo 1-2x weekly - Given Epo 40,000 U x1 in the hospital - Per Oncology, stopped hydroxyurea for PLT count, but will restart if PLTs are between 500-600 - Radiation treatment to be determined by oncology # 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 - Magic mouth wash 15cc S&S daily - Gelclair oral gel packet (patient's own medication) # F/E/N - Fluids: Fluids D/c'd - Electrolytes: Monitor CMP - Diet: Full clears, will advance to soft diet # Prophylaxis - DVT: Warfarin 4mg - GI: Not needed - Deconditioning: Placed call to PT to see patient # Dispo - Likely d/c tomorrow if patient tolerates diet and remains stable # Code Status - DNR/DNI - Verbal consent and signature obtained 05/22/17 PGY-[address] Hung Visit type - Emergency Visit Emergency Visit: No - New Patient This patient is new to me today: No - Critical Care Critical Care patient: No
[2017-05-28] MEDS: LIDOCAINE PATCH REMOVAL MC SCH (22:09)
--- NOTE | 2017-05-28 22:12 | PN ---
Progress Note (short form) - Note Progress Note: Patient seen and examined Had bowel movements after breakfast and dinner Was ambulating in [place] Complains of back pains Last Vital Signs Temp Pulse Resp BP Pulse Ox 99.0 F 76 20 144/58 96 05/28/17 20:00 05/28/17 20:00 05/28/17 20:00 05/28/17 20:00 05/28/17 20:00 HEENT: ROSITA, EOM Intact Oropharynx: No thrush, No mucositis CBC, BMP 05/28/17 08:50 05/28/17 05:35 Cor:irregular rhythm Lungs: Clear to P&A Abd: remains tympanitic and distended Ext:LE edema Skin: No rashes, Integument intact Current Medications Generic Name Dose Route Start Last Admin Trade Name Freq PRN Reason Stop Dose Admin Acetaminophen 650 mg 05/25/17 19:46 05/25/17 21:30 Tylenol - PO 650 mg Q4H PRN Administration FEVER OR PAIN Amlodipine Besylate 10 mg 05/25/17 10:00 05/28/17 09:39 Norvasc - PO 10 mg DAILY MARGARITA Administration Cholecalciferol 2,000 unit 05/25/17 10:00 05/28/17 09:38 Vitamin D3 - PO 2,000 unit DAILY MARGARITA Administration Clonazepam 0.5 mg 05/28/17 21:32 Klonopin - PO BID PRN ANXIETY Lactobacillus Acidophilus 1 tab 05/27/17 10:00 05/28/17 09:38 Bacid - PO 1 tab DAILY MARGARITA Administration Lidocaine 1 patch 05/25/17 10:00 05/28/17 09:37 Lidoderm Patch - TP 1 patch DAILY MARGARITA Administration Miscellaneous 1 each 05/24/17 22:00 05/27/17 21:57 Lidoderm Patch Removal MC 1 each DAILY@2200 MARGARITA Administration Non-Formulary Medication 1 each 05/25/17 10:00 Patient's Own Med NR DAILY MARGARITA Potassium Phos/Sodium Phos 1 packet 05/28/17 22:00 Phos-Nak Packet - PO 05/30/17 10:01 BID MARGARITA Sotalol HCl 120 mg 05/24/17 22:00 05/28/17 21:29 Betapace - PO 120 mg HS MARGARITA Administration Sotalol HCl 40 mg 05/25/17 07:00 05/28/17 06:38 Betapace - PO 40 mg AM MARGARITA Administration Sotalol HCl 80 mg 05/25/17 12:00 05/28/17 14:19 Betapace - PO 80 mg DAILY@1200 MARGARITA Administration Impression: MPD- holding hydrea Atrial fib - coumadin resumed Ischemic colitis- slowly resolving Anemia- chronic disease Compression fx - back Supratherapeutic INR-- normalized Plan: Current intervention.
[2017-05-28] MEDS: NAPH,MB-DB/K PH,MBDB POWDER PACKET PO SCH (22:21)
[2017-05-29] MEDS: SOTALOL HCL 80 MG TABLET (FP) PO SCH ×3 (06:37→21:05)
[2017-05-29 08:22] LABS: MCH 25.1 pg (25.7-33.7); MCHC 32.6 g/dl (32.0-36.0); MEAN CELL VOLUME 76.9 fl (80-96); MEAN PLT VOLUME 8.9 fl (7.5-11.1); PLATELET COUNT 270 K/MM3 (134-434); RDW 18.8 % (11.6-15.6); WHITE BLOOD COUNT 9.9 K/mm3 (4.0-10.0)
[2017-05-29 08:31] LABS: INR 1.69 (0.82-1.09); PROTHROMBIN TIME (PATIENT) 18.8 SEC (9.98-11.88)
[2017-05-29 09:11] LABS: ALBUMIN 2.6 g/dl (3.4-5.0); ALK PHOS 192 U/L (45-117); BILIRUBIN,TOTAL 0.8 mg/dL (0.2-1.0); CALCIUM 7.8 mg/dL (8.5-10.1); CO2 27 mmol/L (21-32); CREATININE 0.6 mg/dL (0.55-1.02); GLUCOSE,RANDOM 90 mg/dL (74-106); SGOT/AST 29 U/L (15-37); SGPT/ALT 22 U/L (12-78); TOT PROT 5.6 g/dl (6.4-8.2)
[2017-05-29 09:48] LABS: ANION GAP 9 (8-16)
[2017-05-29] MEDS: LACTOBACILLUS ACIDOPHILUS 1 EACH TAB (FP) PO SCH (10:52)
[2017-05-29] MEDS: CHOLECALCIFEROL (VITAMIN D3) 1,000 UNIT TABLET (FP) PO SCH (10:52)
[2017-05-29] MEDS: NAPH,MB-DB/K PH,MBDB POWDER PACKET PO SCH ×2 (10:52→22:15)
[2017-05-29] MEDS: amLODIPine BESYLATE 10 MG TABLET (FP) PO SCH (10:52)
[2017-05-29] MEDS: LIDOCAINE 5% TOPICAL PATCH TP SCH (10:53)
--- NOTE | 2017-05-29 11:32 | PN ---
Progress Note (short form) - Note Progress Note: still with back pain when moved has a bm every time she eats- formed no diarrhea no abdominal pain Vital Signs Period Temp Pulse Resp BP Sys/Conde Pulse Ox Last 24 Hr 98 F-99.6 F 72-81 18-20 121-169/58-78 96 cor-rrr lungs clear abd soft,nt +BS ext no edema CBC, BMP 05/29/17 05:40 05/29/17 05:40 Microbiology 05/28/17 08:00 Stool Clostridium difficile Antigen (ELLIOT) - Final 05/28/17 08:00 Stool Clostridium difficile Toxin Assay - Final 05/22/17 15:00 Blood - Peripheral Venous Blood Culture - Final NO GROWTH AFTER 5 DAYS INCUBATION 05/22/17 15:08 Blood - Peripheral Venous Blood Culture - Final NO GROWTH AFTER 5 DAYS INCUBATION 05/24/17 09:00 Stool Clostridium difficile Antigen (ELLIOT) - Final 05/24/17 09:00 Stool Clostridium difficile Toxin Assay - Final a/p ischemic colitis resolved repeat cdiff is negative agree with d/c flagyl please call back if needed
--- NOTE | 2017-05-29 11:58 | PN ---
Progress Note (short form) - Note Progress Note: Patients seen and examined. She continues to have formed bowel movements. No abd pain. She is awaiting for an US General: appears in pain Extremities: No pallor or icterus, no pedal edema. Chest:CTA b/l Abdomen: No tenderness noted today, BS heard. Neuro: Alert, oriented, non-focal. CVS: Normal sinus rhythm, S1, S2, no gallop or murmur. H and N: R parotid mass palpable Lower extremities: 1+ pitting edema bilaterally CBC, BMP 05/29/17 05:40 05/29/17 05:40 Current Medications Generic Name Dose Route Start Last Admin Trade Name Freq PRN Reason Stop Dose Admin Acetaminophen 650 mg 05/25/17 19:46 05/25/17 21:30 Tylenol - PO 650 mg Q4H PRN Administration FEVER OR PAIN Amlodipine Besylate 10 mg 05/25/17 10:00 05/29/17 10:52 Norvasc - PO 10 mg DAILY MARGARITA Administration Cholecalciferol 2,000 unit 05/25/17 10:00 05/29/17 10:52 Vitamin D3 - PO 2,000 unit DAILY MARGARITA Administration Clonazepam 0.5 mg 05/28/17 21:32 Klonopin - PO BID PRN ANXIETY Lactobacillus Acidophilus 1 tab 05/27/17 10:00 05/29/17 10:52 Bacid - PO 1 tab DAILY MARGARITA Administration Lidocaine 1 patch 05/25/17 10:00 05/29/17 10:53 Lidoderm Patch - TP 1 patch DAILY MARGARITA Administration Miscellaneous 1 each 05/24/17 22:00 05/28/17 22:09 Lidoderm Patch Removal MC Not Given DAILY@2200 MARGARITA Non-Formulary Medication 1 each 05/25/17 10:00 Patient's Own Med NR DAILY MARGARITA Potassium Phos/Sodium Phos 1 packet 05/28/17 22:00 05/29/17 10:52 Phos-Nak Packet - PO 05/30/17 10:01 1 packet BID MARGARITA Administration Sotalol HCl 120 mg 05/24/17 22:00 05/28/17 21:29 Betapace - PO 120 mg HS MARGARITA Administration Sotalol HCl 40 mg 05/25/17 07:00 05/29/17 06:37 Betapace - PO 40 mg AM MARGARITA Administration Sotalol HCl 80 mg 05/25/17 12:00 05/28/17 14:19 Betapace - PO 80 mg DAILY@1200 MARGARITA Administration Warfarin Sodium 6 mg 05/29/17 18:00 Coumadin - PO DAILY@1800 MARGARITA Last Vital Signs Temp Pulse Resp BP Pulse Ox 98 F 73 20 169/60 96 05/29/17 09:30 05/29/17 09:30 05/29/17 09:30 05/29/17 09:30 05/28/17 21:00 Assessment/Plan: Suspected ischemic colitis: -resolved -Now on diet. 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 h/o Servandot ET -received procrit on 05/18/2017 Iron overload: -to be monitored, presently on no treatment Back pain from Compression fracture: -seen by Neurosurgery -conservative management -may need pain mgmt as an Out patient d/c planning PT Office aware to call ot with appointment.
--- NOTE | 2017-05-29 12:59 | PN ---
Progress Note (short form) - Note Progress Note: 86 year female h/o of hypertension, paroxysmal atrial fib, myelodysplastic syndrome, thrombocytosis, anemia, , history of IBS, anxiety disorder, h/o of a recent fall, IBS, recent acute abdomen following laxatives for constipation, h/ o of Hasshimoto's thyroiditis. No history of palpitations, no dyspnea,PND or orthopnea. No further abdominal discomfort orloose BM since off antibiotics. Active Medications. Generic Name Dose Route Start Last Admin Trade Name Freq PRN Reason Stop Dose Admin Acetaminophen 650 mg 05/25/17 19:46 05/25/17 21:30 Tylenol - PO 650 mg Q4H PRN Administration FEVER OR PAIN Amlodipine Besylate 10 mg 05/25/17 10:00 05/29/17 10:52 Norvasc - PO 10 mg DAILY MARGARITA Administration Cholecalciferol 2,000 unit 05/25/17 10:00 05/29/17 10:52 Vitamin D3 - PO 2,000 unit DAILY MARGARITA Administration Clonazepam 0.5 mg 05/28/17 21:32 Klonopin - PO BID PRN ANXIETY Lactobacillus Acidophilus 1 tab 05/27/17 10:00 05/29/17 10:52 Bacid - PO 1 tab DAILY MARGARITA Administration Lidocaine 1 patch 05/25/17 10:00 05/29/17 10:53 Lidoderm Patch - TP 1 patch DAILY MARGARITA Administration Miscellaneous 1 each 05/24/17 22:00 05/28/17 22:09 Lidoderm Patch Removal MC Not Given DAILY@2200 MARGARITA Non-Formulary Medication 1 each 05/25/17 10:00 Patient's Own Med NR DAILY MARGARITA Potassium Phos/Sodium Phos 1 packet 05/28/17 22:00 05/29/17 10:52 Phos-Nak Packet - PO 05/30/17 10:01 1 packet BID MARGARITA Administration Sotalol HCl 120 mg 05/24/17 22:00 05/28/17 21:29 Betapace - PO 120 mg HS MARGARITA Administration Sotalol HCl 40 mg 05/25/17 07:00 05/29/17 06:37 Betapace - PO 40 mg AM MARGARITA Administration Sotalol HCl 80 mg 05/25/17 12:00 05/28/17 14:19 Betapace - PO 80 mg DAILY@1200 MARGARITA Administration Warfarin Sodium 6 mg 05/29/17 18:00 Coumadin - PO DAILY@1800 MARGARITA O: 86 year old male/female was in no acute distress. Pallor + No cyanosis, clubbing, or jaundice. Vital Signs - 24 hr 05/28/17 05/28/17 05/28/17 14:00 17:00 21:00 Temperature 99.6 F 98.7 F Pulse Rate 81 81 Respiratory 20 18 20 Rate Blood Pressure 136/65 121/71 O2 Sat by Pulse 96 Oximetry (%) 05/28/17 05/29/17 05/29/17 22:00 02:00 06:00 Temperature 99.0 F 98 F 98.2 F Pulse Rate 76 73 72 Respiratory 20 18 18 Rate Blood Pressure 144/58 152/61 142/78 O2 Sat by Pulse Oximetry (%) 05/29/17 09:30 Temperature 98 F Pulse Rate 73 Respiratory 20 Rate Blood Pressure 169/60 O2 Sat by Pulse Oximetry (%) NECK: Supple, no JVD, carotids were equal and upstrokes were normal,, no bruits heard,no thyromegaly appreciated. HEART: PMI was in the 5th intercostal space, no heaves or thrills, S1 and S2 were normal, nonejection systolic click along the left sternal border and apex. grade I/ systolic murmur at the apex, gallops were heard. LUNGS: Clear on auscultation bilaterally. ABDOMEN: Soft, nontender, no rebound tenderness, no hepatosplenomegaly appreciated, and no palpable masses were felt. Bowel sounds were active. EXTREMITIES: No calf tenderness or dependent edema. Pulses are normal. Laboratory Last Values WBC 9.9 K/mm3 (4.0-10.0) 05/29/17 05:40 Corrected WBC (auto) Cancelled 05/22/17 17:39 RBC 3.58 M/mm3 (3.60-5.2) L 05/29/17 05:40 Hgb 9.0 GM/dL (10.7-15.3) L 05/29/17 05:40 Hct 27.5 % (32.4-45.2) L 05/29/17 05:40 MCV 76.9 fl (80-96) L 05/29/17 05:40 MCH 25.1 pg (25.7-33.7) L 05/29/17 05:40 MCHC 32.6 g/dl (32.0-36.0) 05/29/17 05:40 RDW 18.8 % (11.6-15.6) H 05/29/17 05:40 Plt Count 270 K/MM3 (134-434) 05/29/17 05:40 MPV 8.9 fl (7.5-11.1) 05/29/17 05:40 Neutrophils % 79.6 % (42.8-82.8) 05/28/17 08:50 Lymphocytes % 7.1 % (8-40) L 05/28/17 08:50 Monocytes % 8.7 % (3.8-10.2) 05/28/17 08:50 Eosinophils % 3.2 % (0-4.5) 05/28/17 08:50 Basophils % 1.4 % (0-2.0) 05/28/17 08:50 Band Neutrophils 15.0 % (0-10) H 05/21/17 14:20 Metamyelocytes 1 % (0-2) 05/21/17 14:20 Myelocytes 1 % (0-2) 05/21/17 14:20 Differential Comment Slide scanned 05/19/17 06:00 Platelet Estimate Cancelled 05/22/17 17:39 Platelet Comment Cancelled 05/22/17 17:39 Platelet Comment Cancelled 05/22/17 17:39 RBC Morphology Cancelled 05/22/17 17:39 Hypochromic-Microcytic 1+ 05/17/17 06:38 Basophilic Stippling 1+ 05/28/17 08:50 Anisocytosis 2+ 05/28/17 08:50 Microcytosis 2+ 05/28/17 08:50 Macrocytosis 1+ 05/28/17 08:50 Target Cells 4+ 05/28/17 08:50 Tear Drop Cells 3+ 05/28/17 08:50 Ovalocytes 1+ 05/28/17 08:50 Fragmented RBCs 1+ 05/28/17 08:50 Schistocytes 1+ 05/17/17 06:38 Morphology Comment Slide scanned 05/28/17 08:50 ESR 18 mm/hr (0-30) 05/24/17 05:10 INR 1.69 (0.82-1.09) H 05/29/17 05:40 PTT (Actin FS) 49.8 SECONDS (26.9-34.4) H D 05/16/17 18:22 Sodium 137 mmol/L (136-145) 05/29/17 05:40 Potassium 3.5 mmol/L (3.5-5.1) 05/29/17 05:40 Chloride 101 mmol/L (98-107) 05/29/17 05:40 Carbon Dioxide 27 mmol/L (21-32) 05/29/17 05:40 Anion Gap 9 (8-16) 05/29/17 05:40 BUN 9 mg/dL (7-18) 05/29/17 05:40 Creatinine 0.6 mg/dL (0.55-1.02) 05/29/17 05:40 Creat Clearance w eGFR > 60 (>60) 05/29/17 05:40 Random Glucose 90 mg/dL (74-106) 05/29/17 05:40 Lactic Acid 1.1 mmol/L (0.4-2.0) 05/22/17 13:57 Calcium 7.8 mg/dL (8.5-10.1) L 05/29/17 05:40 Phosphorus 2.2 mg/dL (2.5-4.9) L D 05/28/17 05:35 Magnesium 1.8 mg/dL (1.8-2.4) 05/26/17 05:50 Total Bilirubin 0.8 mg/dL (0.2-1.0) 05/29/17 05:40 AST 29 U/L (15-37) 05/29/17 05:40 ALT 22 U/L (12-78) 05/29/17 05:40 Alkaline Phosphatase 192 U/L (45-117) H 05/29/17 05:40 Creatine Kinase 39 IU/L (26-192) 05/22/17 13:42 Troponin I 0.02 ng/ml (0.00-0.05) 05/22/17 13:42 C-Reactive Protein 2.7 MG/DL (0.00-0.3) H D 05/26/17 05:50 B-Natriuretic Peptide Cancelled 05/16/17 18:22 Total Protein 5.6 g/dl (6.4-8.2) L 05/29/17 05:40 Albumin 2.6 g/dl (3.4-5.0) L 05/29/17 05:40 Stool Occult Blood Negative (NEGATIVE) 05/21/17 10:00 Blood Type AB POSITIVE 05/21/17 14:20 Antibody Screen Negative 05/21/17 14:20 Crossmatch See Detail 05/21/17 14:20 Impression: 1. H/O atrial fibrillation 2. Auscultatory finding suggestive of mitral valve prolapse. 3. Hypertension. 4. S/P acute abdomen. 5. Myelodysplastic syndrome. 6. History of thrombocytosis, currently corrected. 7. History of Tucker's thyroiditis. 8. H/O Anemia Recommendations: 1. Increase ambulation. 2. Close follow up of INR. 3. Discharge when medically stable. Problem List - Problems (1) Acute abdomen Code(s): R10.0 - ACUTE ABDOMEN (2) Hypertension Code(s): I10 - ESSENTIAL (PRIMARY) HYPERTENSION (3) A-fib Code(s): I48.91 - UNSPECIFIED ATRIAL FIBRILLATION Qualifiers: Atrial fibrillation type: paroxysmal Qualified Code(s): I48.0 - Paroxysmal atrial fibrillation (4) History of Tucker thyroiditis Code(s): Z86.39 - PERSONAL HISTORY OF ENDO, NUTRITIONAL AND METABOLIC DISEASE (5) Mitral valve prolapse syndrome Code(s): I34.1 - NONRHEUMATIC MITRAL (VALVE) PROLAPSE (6) Anemia Code(s): D64.9 - ANEMIA, UNSPECIFIED
--- NOTE | 2017-05-29 17:00 | PN ---
Teaching Attending Note Name of Resident: Maryse Hung ATTENDING PHYSICIAN STATEMENT I saw and evaluated the patient. I reviewed the resident's note and discussed the case with the resident. I agree with the resident's findings and plan as documented. SUBJECTIVE: no LONGO , still has mild lower back pain OBJECTIVE: NAD , AAOx3 CV: irreg irreg , 2/6 SM at LLSB Lungs : CTAB Abd: soft, NT, ND , NL BS. Neg Vazquez's Ext : no edema over LE ASSESSMENT AND PLAN: 86 y/o lady with h/o Lymphoma , on radiation , myelo-proliferative disease , HTN , A fib on coumadin and other medical problems who presented after a mechanical fall. 1- Mechanical fall,s/p T12 Fx - cont lidocaine patch and tylenol 2- H/O A fib: - INR is subtherapeutic today - give 6 mg of coumadin today then 4 mg daily after then - cont sotalol ( new dosing ) 3- Possible ischemic VS infectious colitis. improved sx . no more diarrhe a. off ABx with no leukocytosis and no fever . need GI f/u for possible colonoscopy low residue diet 4- H/o MALT Lymphoma. off hydroxyuria for now f/u as outpt 4- HTN : cont norvasc 5- elevated ALk phos, could be due to abx. has no RUQ tenderness and ALt, AST nl . check US . further w/u as out pt ( bone source ) If US is neg , can dc to rehab
[2017-05-29] MEDS ORDERED: HEPARIN - 25,000 UNIT in SODIUM CHLORIDE 495 ML IV SCH (18:00)
[2017-05-29] MEDS ORDERED: WARFARIN NA 3 MG TABLET PO SCH (18:00)
[2017-05-29] MEDS ORDERED: HEPARIN NA (PORCINE) 5,000 UNITS/ML 1ML VIAL IVPUSH PRN ×2 (18:00)
[2017-05-29] MEDS ORDERED: HEPARIN INFUSION - 500 ML IVPB ONE (18:38)
--- NOTE | 2017-05-29 19:07 | PN ---
Addendum entered and electronically signed by Maryse Hung RES 05/29/17 21: 26: On further review of past imaging, an MRI done 04/13/17 shows a nonocclusive portal vein thrombus. Also present are unchanged liver lesions, interval progressive dilation of the portal vein, splenomegaly (14.6 x 13.1 x 8.9) and portal HTN. Will speak with Oncology team in the morning. Original Note: Physical Exam: SUBJECTIVE: Patient seen and examined this AM. No CP, no SOB, no fevers, no chills. States back and abd pain is better. States BMs are regular. OBJECTIVE: Vital Signs Period Temp Pulse Resp BP Sys/Conde Pulse Ox Last 24 Hr 98 F-99.0 F 68-76 18-20 142-169/58-78 96 GENERAL: The patient is awake, alert, sitting upright in bed, not in distress, looks better than yesterday EYES: PERRL, extraocular movements intact ENT: Dry mucous membranes, R sided tongue bluish discoloration, R sided yellow circular tongue sores NECK: Neck was supple, not tender to palpation. Mildly limited ROM of neck, discomfort with movement LUNGS: Breath sounds equal, upper lung hernández were clear to auscultation bilaterally HEART: Bradycardic rate, regular rhythm, S1, S2 +2/6 systolic murmur heard best in the tricuspid region ABDOMEN: Protuberant abdomen which is unchanged, soft, no guarding, no rebound tenderness, normoactive bowel sounds EXTREMITIES: 2+ pulses, warm, well-perfused, +2 edema BLLE. Telangiectasias present on extremities. NEUROLOGICAL: Patient is oriented to person, place, and month. Cranial nerves II through XII were intact. Sensation was intact in the face and body bilaterally. Muscle strength was 5/5 in all extremities. Reflexes were 2+ in all extremities. FTN test was intact. Vibratory sensation and proprioception was intact. Gait was not observed. Laboratory Results - last 24 hr 05/29/17 05/29/17 05/29/17 05:40 05:40 05:40 WBC 9.9 RBC 3.58 L Hgb 9.0 L Hct 27.5 L MCV 76.9 L MCH 25.1 L MCHC 32.6 RDW 18.8 H Plt Count 270 MPV 8.9 INR 1.69 H Sodium 137 Potassium 3.5 Chloride 101 Carbon Dioxide 27 Anion Gap 9 BUN 9 Creatinine 0.6 Creat Clearance w eGFR > 60 Random Glucose 90 Calcium 7.8 L Total Bilirubin 0.8 AST 29 ALT 22 Alkaline Phosphatase 192 H Total Protein 5.6 L Albumin 2.6 L Active Medications Generic Name Dose Route Start Last Admin Trade Name Freq PRN Reason Stop Dose Admin Acetaminophen 650 mg 05/25/17 19:46 05/25/17 21:30 Tylenol - PO 650 mg Q4H PRN Administration FEVER OR PAIN Amlodipine Besylate 10 mg 05/25/17 10:00 05/29/17 10:52 Norvasc - PO 10 mg DAILY MARGARITA Administration Cholecalciferol 2,000 unit 05/25/17 10:00 05/29/17 10:52 Vitamin D3 - PO 2,000 unit DAILY MARGARITA Administration Clonazepam 0.5 mg 05/28/17 21:32 Klonopin - PO BID PRN ANXIETY Heparin Sodium (Porcine) 1,000 unit 05/29/17 18:00 Heparin - IVPUSH PRN PRN Heparin Heparin Sodium (Porcine) 5,000 unit 05/29/17 18:00 Heparin - IVPUSH PRN PRN Heparin Heparin Sodium (Porcine) 25, 500 mls @ 16 mls/hr 05/29/17 18:00 000 unit/ Sodium Chloride IV TITR MARGARITA Protocol 800 UNIT/HR Lactobacillus Acidophilus 1 tab 05/27/17 10:00 05/29/17 10:52 Bacid - PO 1 tab DAILY MARGARITA Administration Lidocaine 1 patch 05/25/17 10:00 05/29/17 10:53 Lidoderm Patch - TP 1 patch DAILY MARGARITA Administration Miscellaneous 1 each 05/24/17 22:00 05/28/17 22:09 Lidoderm Patch Removal MC Not Given DAILY@2200 MARGARITA Non-Formulary Medication 1 each 05/25/17 10:00 Patient's Own Med NR DAILY MARGARITA Potassium Phos/Sodium Phos 1 packet 05/28/17 22:00 05/29/17 10:52 Phos-Nak Packet - PO 05/30/17 10:01 1 packet BID MARGARITA Administration Sotalol HCl 120 mg 05/24/17 22:00 05/28/17 21:29 Betapace - PO 120 mg HS MARGARITA Administration Sotalol HCl 40 mg 05/25/17 07:00 05/29/17 06:37 Betapace - PO 40 mg AM MARGARITA Administration Sotalol HCl 80 mg 05/25/17 12:00 05/29/17 18:13 Betapace - PO Not Given DAILY@1200 MARGARITA IMAGING: Abdominal CT showed signs of colitis but no perforation, no pnuematosis, no obstruction, +ileus RUQ U/S - Thrombus in the Main portal vein, splenomegaly (16.3cm) ASSESSMENT/PLAN: Patient is an 86yo F with PMHx of Afib on Coumadin, 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 She was brought by EMS after a mechanical fall and was admitted for r/ o bleed. She developed possible ischemic colitis and was transferred to the ICU for further management. # Portal Vein Thrombus - w/ Splenomegaly - Demonstrated by RUQ U/S - Patient placed on heparin drip since patient is subtherapeutic - Call and message placed to Dr. Eaton's office # Suspected Acute Ischemic Colitis / Infectious Colitis - Patient likely lost fluids after episode of emesis and high volume diarrhea + possible superimposed infection - Pt was on Flagyl 500mg Q8 IV x 2 days + Zosyn 3.75 Q8 IV x 5 days - now on no antibiotics, improving, normal BMs on low residual diet # Hx of Afib with Supratherapeutic INR - resolved (INR 1.69) - Could possibly be a combination of low PO intake + pain medications for back pain, given 2.5mg PO vit K x1 + antibiotics - No active bleeds during hospitalization - Pt to receive Warfarin 6mg tonight bc subtherapeutic, repeat PT/INR tmrw - On Sotalol 40mg AM + 80mg afternoon + 120mg HS # Diarrhea - resolved - Pt no longer has diarrhea, C. diff negative # Anemia - Patient has transfusion dependent anemia, maintained on Epo 1-2x weekly, received 1 unit in hospital - Today 9.0, no transfusion needed as per heme/onc # S/p mechanical fall - Pt was on Couamdin, but CT scans of head and abd/pelvis ruled out any acute bleeds # Mild T12 Compression Fracture - Neurosurgery recommends conservative management, pain has improved with Lidocaine patch and Tylenol - Pt on standby Tylenol 650mg Q8 PRN, but informed patient about interaction w/ Coumadin # HTN - well controlled - Pt on Amlodipine 10mg PO QD and Sotalol PO 40mg AM + 80mg afternoon + 120mg HS # Anxiety - Pt at home takes clonazepam 0.5mg PO BID, will place on standby PRN # 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 - Pt has hx of transfusion dependent anemia, maintained on Epo 1-2x weekly - Given Epo 40,000 U x1 in the hospital - Per Oncology, stopped hydroxyurea for PLT count, but will restart if PLTs are between 500-600 - Radiation treatment to be determined by oncology # 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 Hung Visit type - Emergency Visit Emergency Visit: No - New Patient This patient is new to me today: No - Critical Care Critical Care patient: No - Discharge Referral Referred to [facility] Med P.C.: No
[2017-05-29] MEDS: LIDOCAINE PATCH REMOVAL MC SCH (21:26)
[2017-05-29] MEDS: clonazePAM 0.5 MG TABLET PO PRN (22:15)
--- NOTE | 2017-05-30 06:31 | PN ---
Physical Exam: SUBJECTIVE: Patient seen and examined this AM. Complains less of abdominal pain , less back pain, overall the same as yesterday. No CP, no SOB, no fevers, no chills. OBJECTIVE: Vital Signs Period Temp Pulse Resp BP Sys/Conde Pulse Ox Last 24 Hr 98 F-98.5 F 68-75 18-20 139-169/54-68 96 GENERAL: The patient is awake, alert, sitting upright in bed, not in distress, looks better than yesterday EYES: PERRL, extraocular movements intact ENT: Dry mucous membranes, R sided tongue bluish discoloration, R sided yellow circular tongue sores NECK: Neck was supple, not tender to palpation. Mildly limited ROM of neck, discomfort with movement LUNGS: Breath sounds equal, upper lung hernández were clear to auscultation bilaterally HEART: Bradycardic rate, regular rhythm, S1, S2 +2/6 systolic murmur heard best in the tricuspid region ABDOMEN: Protuberant abdomen which is unchanged, soft, no guarding, no rebound tenderness, normoactive bowel sounds EXTREMITIES: 2+ pulses, warm, well-perfused, +2 edema BLLE. Telangiectasias present on extremities. NEUROLOGICAL: Patient is oriented to person, place, and month. Cranial nerves II through XII were intact. Sensation was intact in the face and body bilaterally. Muscle strength was 5/5 in all extremities. Reflexes were 2+ in all extremities. FTN test was intact. Vibratory sensation and proprioception was intact. Gait was not observed. Laboratory Results - last 24 hr 05/29/17 05/29/17 05/29/17 05:40 05:40 05:40 WBC 9.9 RBC 3.58 L Hgb 9.0 L Hct 27.5 L MCV 76.9 L MCH 25.1 L MCHC 32.6 RDW 18.8 H Plt Count 270 MPV 8.9 INR 1.69 H PTT (Actin FS) Sodium 137 Potassium 3.5 Chloride 101 Carbon Dioxide 27 Anion Gap 9 BUN 9 Creatinine 0.6 Creat Clearance w eGFR > 60 Random Glucose 90 Calcium 7.8 L Total Bilirubin 0.8 AST 29 ALT 22 Alkaline Phosphatase 192 H Total Protein 5.6 L Albumin 2.6 L 05/30/17 02:01 WBC RBC Hgb Hct MCV MCH MCHC RDW Plt Count MPV INR PTT (Actin FS) 63.4 H Sodium Potassium Chloride Carbon Dioxide Anion Gap BUN Creatinine Creat Clearance w eGFR Random Glucose Calcium Total Bilirubin AST ALT Alkaline Phosphatase Total Protein Albumin Active Medications Generic Name Dose Route Start Last Admin Trade Name Gaston PRN Reason Stop Dose Admin Acetaminophen 650 mg 05/25/17 19:46 05/25/17 21:30 Tylenol - PO 650 mg Q4H PRN Administration FEVER OR PAIN Amlodipine Besylate 10 mg 05/25/17 10:00 05/29/17 10:52 Norvasc - PO 10 mg DAILY MARGARITA Administration Cholecalciferol 2,000 unit 05/25/17 10:00 05/29/17 10:52 Vitamin D3 - PO 2,000 unit DAILY MARGARITA Administration Clonazepam 0.5 mg 05/28/17 21:32 05/29/17 22:15 Klonopin - PO 0.25 mg BID PRN Administration ANXIETY Heparin Sodium (Porcine) 1,000 unit 05/29/17 18:00 Heparin - IVPUSH PRN PRN Heparin Heparin Sodium (Porcine) 5,000 unit 05/29/17 18:00 Heparin - IVPUSH PRN PRN Heparin Heparin Sodium (Porcine) 25, 500 mls @ 16 mls/hr 05/29/17 18:00 05/29/17 19:20 000 unit/ Sodium Chloride IV 16 mls/hr TITR MARGARITA Administration Protocol 800 UNIT/HR Lactobacillus Acidophilus 1 tab 05/27/17 10:00 05/29/17 10:52 Bacid - PO 1 tab DAILY MARGARITA Administration Lidocaine 1 patch 05/25/17 10:00 05/29/17 10:53 Lidoderm Patch - TP 1 patch DAILY MARGARITA Administration Miscellaneous 1 each 05/24/17 22:00 05/29/17 21:26 Lidoderm Patch Removal MC Not Given DAILY@2200 MARGARITA Non-Formulary Medication 1 each 05/25/17 10:00 Patient's Own Med NR DAILY MARGARITA Potassium Phos/Sodium Phos 1 packet 05/28/17 22:00 05/29/17 22:15 Phos-Nak Packet - PO 05/30/17 10:01 1 packet BID MARGARITA Administration Sotalol HCl 120 mg 05/24/17 22:00 05/29/17 21:05 Betapace - PO 120 mg HS MARGARITA Administration Sotalol HCl 40 mg 05/25/17 07:00 05/29/17 06:37 Betapace - PO 40 mg AM MARGARITA Administration Sotalol HCl 80 mg 05/25/17 12:00 05/29/17 18:13 Betapace - PO Not Given DAILY@1200 MARGARITA ASSESSMENT/PLAN: IMAGING: Abdominal CT showed signs of colitis but no perforation, no pnuematosis, no obstruction, +ileus RUQ U/S - Thrombus in the Main portal vein, splenomegaly (16.3cm) ASSESSMENT/PLAN: Patient is an 86yo F with PMHx of Afib on Coumadin, 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 She was brought by EMS after a mechanical fall and was admitted for r/ o bleed. She developed possible ischemic colitis and was transferred to the ICU for further management. # Portal Vein Thrombus - w/ Splenomegaly - Demonstrated by RUQ U/S, pt initially placed on heparin drip - now warfarin - On further review of past imaging, an MRI done 04/13/17 shows a nonocclusive portal vein thrombus away from the liver hilum, splenomegaly, and portal HTN. A Liver U/S with doppler taken 2 days later likely missed the thrombus due to its distance from the hilum, and showed patent portal vein. Since the thrombus was detected on the latest U/s, suspicion arose for thrombus extension. MRI abd was ordered which showed interval progression of the thrombus into the R and L portal venous branches. - Possibly Coumadin failure - Oncology discussed with patient who doesn't want invasive measures, talked about anticoagulation, coumadin vs NOAC, pt still to decide. - Will discuss the MRI results with the patient's family # Suspected Acute Ischemic Colitis / Infectious Colitis - Patient likely lost fluids after episode of emesis and high volume diarrhea + possible superimposed infection - Pt was on Flagyl 500mg Q8 IV x 2 days + Zosyn 3.75 Q8 IV x 5 days - now on no antibiotics, improving, normal BMs on low residual diet # Hx of Afib with Supratherapeutic INR - resolved (INR 1.69) - Could possibly be a combination of low PO intake + pain medications for back pain, given 2.5mg PO vit K x1 + antibiotics - No active bleeds during hospitalization - Pt to receive Warfarin 6mg tonight bc subtherapeutic, repeat PT/INR tmrw - On Sotalol 40mg AM + 80mg afternoon + 120mg HS # Diarrhea - resolved - Pt no longer has diarrhea, C. diff negative # Anemia - Patient has transfusion dependent anemia, maintained on Epo 1-2x weekly, received 1 unit in hospital - Today 9.0, no transfusion needed as per heme/onc # S/p mechanical fall - Pt was on Couamdin, but CT scans of head and abd/pelvis ruled out any acute bleeds # Mild T12 Compression Fracture - Neurosurgery recommends conservative management, pain has improved with Lidocaine patch and Tylenol - Pt on standby Tylenol 650mg Q8 PRN, but informed patient about interaction w/ Coumadin # HTN - well controlled - Pt on Amlodipine 10mg PO QD and Sotalol PO 40mg AM + 80mg afternoon + 120mg HS # Anxiety - Pt on home clonazepam 0.5mg PO BID PRN # 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 - Pt has hx of transfusion dependent anemia, maintained on Epo 1-2x weekly - Given Epo 40,000 U x1 in the hospital - Per Oncology, stopped hydroxyurea for PLT count, but will restart if PLTs are between 500-600 - Radiation treatment to be determined by oncology # 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 Hung Visit type - Emergency Visit Emergency Visit: No - New Patient This patient is new to me today: No - Critical Care Critical Care patient: No - Discharge Referral Referred to [facility] Med P.C.: No
[2017-05-30] MEDS: SOTALOL HCL 80 MG TABLET (FP) PO SCH ×3 (06:50→21:07)
[2017-05-30 08:15] LABS: MCH 25.4 pg (25.7-33.7); MCHC 32.8 g/dl (32.0-36.0); MEAN CELL VOLUME 77.7 fl (80-96); MEAN PLT VOLUME 8.9 fl (7.5-11.1); PLATELET COUNT 282 K/MM3 (134-434); RDW 18.3 % (11.6-15.6)
[2017-05-30 08:34] LABS: INR 1.95 (0.82-1.09); PROTHROMBIN TIME (PATIENT) 21.8 SEC (9.98-11.88)
[2017-05-30 09:17] LABS: ALBUMIN 2.5 g/dl (3.4-5.0); ALK PHOS 187 U/L (45-117); ANION GAP 9 (8-16); BILIRUBIN,TOTAL 0.8 mg/dL (0.2-1.0); CO2 26 mmol/L (21-32); CREATININE 0.5 mg/dL (0.55-1.02); GLUCOSE,RANDOM 91 mg/dL (74-106); SGOT/AST 29 U/L (15-37); SGPT/ALT 23 U/L (12-78); TOT PROT 5.5 g/dl (6.4-8.2)
[2017-05-30] MEDS: LACTOBACILLUS ACIDOPHILUS 1 EACH TAB (FP) PO SCH (10:23)
[2017-05-30] MEDS: NAPH,MB-DB/K PH,MBDB POWDER PACKET PO SCH (10:23)
[2017-05-30] MEDS: amLODIPine BESYLATE 10 MG TABLET (FP) PO SCH (10:23)
[2017-05-30] MEDS: LIDOCAINE 5% TOPICAL PATCH TP SCH (10:23)
[2017-05-30] MEDS: CHOLECALCIFEROL (VITAMIN D3) 1,000 UNIT TABLET (FP) PO SCH (10:24)
[2017-05-30] MEDS: clonazePAM 0.5 MG TABLET PO PRN ×2 (12:50→22:12)
--- NOTE | 2017-05-30 12:54 | PN ---
Teaching Attending Note Name of Resident: Maryse Hung ATTENDING PHYSICIAN STATEMENT I saw and evaluated the patient. I reviewed the resident's note and discussed the case with the resident. I agree with the resident's findings and plan as documented. SUBJECTIVE: denies any fever or chills, or abd pain. has back pain. no weakness , numbness or tingling. no visual changes OBJECTIVE: NAD , AAOx3 CV: irreg irreg , 2/6 SM at LLSB Lungs : CTAB Ext : no edema over LE Abd exam was not possible due to position, no Tenderness as of yesterday 's exam ASSESSMENT AND PLAN: 86 y/o lady with h/o Lymphoma , on radiation , myelo-proliferative disease , HTN , A fib on coumadin and other medical problems who presented after a mechanical fall. 1- Portal vein thrombus: MRI from 04/13/17. showed a thrombus in portal vein . case was d/w heme , who indicated thrombus was known by Dr. Kline and being followed. case was d/w Dr. Blackwood by dr. Hernandes , MRI with triple phase was recommended cont AC . stop heparin gtt as INR 1.95 and the clot is not new , give 4 mg of coumadin tonight 2- Mechanical fall,s/p T12 Fx - cont lidocaine patch and tylenol 3- H/O A fib: -cont coumadin , 4 mg tonight - cont sotalol 4- Possible ischemic VS infectious colitis. improved sx . no more diarrhea. off ABx with no leukocytosis and no fever . need GI f/u for possible colonoscopy low residue diet 5- H/o MALT Lymphoma. off hydroxyuria for now f/u as outpt 6- HTN : cont norvasc 7-Elevated ALk phos, could be due to abx. Also has liver mets. US as above monitor Dispo : HLOC case was d/w pt in details. will notify family
[2017-05-30] MEDS: ACETAMINOPHEN 325 MG TABLET (FP) PO PRN (14:30)
--- NOTE | 2017-05-30 14:37 | PN ---
Progress Note (short form) - Note Progress Note: Called re: PVT. It appears that this is a chronic finding by history. Advised triple phase imaging of the abdomen to assess portal vein / portal vein thrombus and for signs of cavernous transformation / collateralization Problem List - Problems (1) Ischemic colitis Code(s): K55.9 - VASCULAR DISORDER OF INTESTINE, UNSPECIFIED
--- NOTE | 2017-05-30 16:32 | PN ---
Progress Note (short form) - Note Progress Note: Slight increase in size of portal vein thrombus noted on MRI. Will need continued anticoagulation. Problem List - Problems (1) Ischemic colitis Code(s): K55.9 - VASCULAR DISORDER OF INTESTINE, UNSPECIFIED
[2017-05-30] MEDS ORDERED: WARFARIN NA 2 MG TABLET (UD) PO SCH (18:00)
--- NOTE | 2017-05-30 18:07 | PN ---
Progress Note (short form) - Note Progress Note: Patients seen and examined. Events noted. she is s/p MRI abdomen. General: in NAD Extremities: No pallor or icterus, no pedal edema. Chest:CTA b/l Abdomen: No tenderness noted today, BS heard. Neuro: Alert, oriented, non-focal. CVS: Normal sinus rhythm, S1, S2, no gallop or murmur. H and N: R parotid mass palpable CBC, BMP 05/29/17 05:40 05/29/17 05:40 Current Medications Generic Name Dose Route Start Last Admin Trade Name Freq PRN Reason Stop Dose Admin Acetaminophen 650 mg 05/25/17 19:46 05/25/17 21:30 Tylenol - PO 650 mg Q4H PRN Administration FEVER OR PAIN Amlodipine Besylate 10 mg 05/25/17 10:00 05/29/17 10:52 Norvasc - PO 10 mg DAILY MARGARITA Administration Cholecalciferol 2,000 unit 05/25/17 10:00 05/29/17 10:52 Vitamin D3 - PO 2,000 unit DAILY MARGARITA Administration Clonazepam 0.5 mg 05/28/17 21:32 Klonopin - PO BID PRN ANXIETY Lactobacillus Acidophilus 1 tab 05/27/17 10:00 05/29/17 10:52 Bacid - PO 1 tab DAILY MARGARITA Administration Lidocaine 1 patch 05/25/17 10:00 05/29/17 10:53 Lidoderm Patch - TP 1 patch DAILY MARGARITA Administration Miscellaneous 1 each 05/24/17 22:00 05/28/17 22:09 Lidoderm Patch Removal MC Not Given DAILY@2200 MARGARITA Non-Formulary Medication 1 each 05/25/17 10:00 Patient's Own Med NR DAILY MARGARITA Potassium Phos/Sodium Phos 1 packet 05/28/17 22:00 05/29/17 10:52 Phos-Nak Packet - PO 05/30/17 10:01 1 packet BID MARGARITA Administration Sotalol HCl 120 mg 05/24/17 22:00 05/28/17 21:29 Betapace - PO 120 mg HS MARGARITA Administration Sotalol HCl 40 mg 05/25/17 07:00 05/29/17 06:37 Betapace - PO 40 mg AM MARGARITA Administration Sotalol HCl 80 mg 05/25/17 12:00 05/28/17 14:19 Betapace - PO 80 mg DAILY@1200 [facility] Administration Warfarin Sodium 6 mg 05/29/17 18:00 Coumadin - PO DAILY@1800 [facility] Last Vital Signs Temp Pulse Resp BP Pulse Ox 98 F 73 20 169/60 96 05/29/17 09:30 05/29/17 09:30 05/29/17 09:30 05/29/17 09:30 05/28/17 21:00 Assessment/Plan: Portal vein thrombosis: -from her underlying Myeloproliferative neoplasm -significant progression noted as per today's MRI report -Reviewed the past INR results, mostly have been therapeutic ??couamdin failure -discussed with and her daughter about the options. -options discussed were: a) to switch therapy to therapeutic doses of lovenox. b) continuing the coumadin -she didn't want any invasive measures -??Newer oral anticoagulants role in coumadin failure -after presenting the options, opted to think over it and will let us know -For now, will continue the coumadin with INR monitoring PMF from ET: -presently holding off hydrea -splenomegaly from PMF. MALToma ( parotid) -will need to resume RT Iron Overload: -confirmed from MRI -Will try to avoid PRBCs as much we could -Patient recovered from suspected ischemic colitis Paroxysmal AC: -will need systemic a/c Compression fracture -dc/ planning once a final plan established on systemic AC will follow discussed with Hospitalist team
[2017-05-30] MEDS: LIDOCAINE PATCH REMOVAL MC SCH (21:07)
[2017-05-31] MEDS: SOTALOL HCL 80 MG TABLET (FP) PO SCH ×2 (06:45→12:52)
[2017-05-31 07:30] LABS: MCHC 32.2 g/dl (32.0-36.0); MEAN CELL VOLUME 77.7 fl (80-96); MEAN PLT VOLUME 8.9 fl (7.5-11.1); PLATELET COUNT 271 K/MM3 (134-434); RDW 18.1 % (11.6-15.6)
[2017-05-31 07:43] LABS: INR 1.81 (0.82-1.09); PROTHROMBIN TIME (PATIENT) 20.2 SEC (9.98-11.88)
[2017-05-31 08:29] LABS: ALBUMIN 2.7 g/dl (3.4-5.0); ANION GAP 8 (8-16); CO2 29 mmol/L (21-32); GLUCOSE,RANDOM 88 mg/dL (74-106)
[2017-05-31 08:32] LABS: ALK PHOS 205 U/L (45-117); CREATININE 0.6 mg/dL (0.55-1.02); SGOT/AST 33 U/L (15-37); SGPT/ALT 25 U/L (12-78); TOT PROT 5.8 g/dl (6.4-8.2)
[2017-05-31] MEDS: ACETAMINOPHEN 325 MG TABLET (FP) PO PRN (10:02)
[2017-05-31] MEDS: LACTOBACILLUS ACIDOPHILUS 1 EACH TAB (FP) PO SCH (10:03)
[2017-05-31] MEDS: amLODIPine BESYLATE 10 MG TABLET (FP) PO SCH (10:04)
[2017-05-31] MEDS: CHOLECALCIFEROL (VITAMIN D3) 1,000 UNIT TABLET (FP) PO SCH (10:04)
[2017-05-31] MEDS: LIDOCAINE 5% TOPICAL PATCH TP SCH (10:04)
--- NOTE | 2017-05-31 10:17 | PN ---
Progress Note (short form) - Note Progress Note: 86 year female h/o of paroxysmal atrial fib, myelodysplastic syndrome, thrombocytosis, anemia,hypertension,recent epis Active Medications. Generic Name Dose Route Start Last Admin Trade Name Gaston PRN Reason Stop Dose Admin Acetaminophen 650 mg 05/25/17 19:46 05/25/17 21:30 Tylenol - PO 650 mg Q4H PRN Administration FEVER OR PAIN Amlodipine Besylate 10 mg 05/25/17 10:00 05/29/17 10:52 Norvasc - PO 10 mg DAILY MARGARITA Administration Cholecalciferol 2,000 unit 05/25/17 10:00 05/29/17 10:52 Vitamin D3 - PO 2,000 unit DAILY MARGARITA Administration Clonazepam 0.5 mg 05/28/17 21:32 Klonopin - PO BID PRN ANXIETY Lactobacillus Acidophilus 1 tab 05/27/17 10:00 05/29/17 10:52 Bacid - PO 1 tab DAILY MARGARITA Administration Lidocaine 1 patch 05/25/17 10:00 05/29/17 10:53 Lidoderm Patch - TP 1 patch DAILY MARGARITA Administration Miscellaneous 1 each 05/24/17 22:00 05/28/17 22:09 Lidoderm Patch Removal MC Not Given DAILY@2200 [facility] Non-Formulary Medication 1 each 05/25/17 10:00 Patient's Own Med NR DAILY MARGARITA Potassium Phos/Sodium Phos 1 packet 05/28/17 22:00 05/29/17 10:52 Phos-Nak Packet - PO 05/30/17 10:01 1 packet BID MARGARITA Administration Sotalol HCl 120 mg 05/24/17 22:00 05/28/17 21:29 Betapace - PO 120 mg HS MARGARITA Administration Sotalol HCl 40 mg 05/25/17 07:00 05/29/17 06:37 Betapace - PO 40 mg AM MARGARITA Administration Sotalol HCl 80 mg 05/25/17 12:00 05/28/17 14:19 Betapace - PO 80 mg DAILY@1200 MARGARITA Administration Warfarin Sodium 6 mg 05/29/17 18:00 Coumadin - PO DAILY@1800 MARGARITA O: 86 year old male/female was in no acute distress. Pallor + No cyanosis, clubbing, or jaundice. Vital Signs - 24 hr 05/28/17 05/28/17 05/28/17 14:00 17:00 21:00 Temperature 99.6 F 98.7 F Pulse Rate 81 81 Respiratory 20 18 20 Rate Blood Pressure 136/65 121/71 O2 Sat by Pulse 96 Oximetry (%) 05/28/17 05/29/17 05/29/17 22:00 02:00 06:00 Temperature 99.0 F 98 F 98.2 F Pulse Rate 76 73 72 Respiratory 20 18 18 Rate Blood Pressure 144/58 152/61 142/78 O2 Sat by Pulse Oximetry (%) 05/29/17 09:30 Temperature 98 F Pulse Rate 73 Respiratory 20 Rate Blood Pressure 169/60 O2 Sat by Pulse Oximetry (%) NECK: Supple, no JVD, carotids were equal and upstrokes were normal,, no bruits heard,no thyromegaly appreciated. HEART: PMI was in the 5th intercostal space, no heaves or thrills, S1 and S2 were normal, nonejection systolic click along the left sternal border and apex. grade I/ systolic murmur at the apex, gallops were heard. LUNGS: Clear on auscultation bilaterally. ABDOMEN: Soft, nontender, no rebound tenderness, no hepatosplenomegaly appreciated, and no palpable masses were felt. Bowel sounds were active. EXTREMITIES: No calf tenderness or dependent edema. Pulses are normal. Laboratory Last Values WBC 9.9 K/mm3 (4.0-10.0) 05/29/17 05:40 Corrected WBC (auto) Cancelled 05/22/17 17:39 RBC 3.58 M/mm3 (3.60-5.2) L 05/29/17 05:40 Hgb 9.0 GM/dL (10.7-15.3) L 05/29/17 05:40 Hct 27.5 % (32.4-45.2) L 05/29/17 05:40 MCV 76.9 fl (80-96) L 05/29/17 05:40 MCH 25.1 pg (25.7-33.7) L 05/29/17 05:40 MCHC 32.6 g/dl (32.0-36.0) 05/29/17 05:40 RDW 18.8 % (11.6-15.6) H 05/29/17 05:40 Plt Count 270 K/MM3 (134-434) 05/29/17 05:40 MPV 8.9 fl (7.5-11.1) 05/29/17 05:40 Neutrophils % 79.6 % (42.8-82.8) 05/28/17 08:50 Lymphocytes % 7.1 % (8-40) L 05/28/17 08:50 Monocytes % 8.7 % (3.8-10.2) 05/28/17 08:50 Eosinophils % 3.2 % (0-4.5) 05/28/17 08:50 Basophils % 1.4 % (0-2.0) 05/28/17 08:50 Band Neutrophils 15.0 % (0-10) H 05/21/17 14:20 Metamyelocytes 1 % (0-2) 05/21/17 14:20 Myelocytes 1 % (0-2) 05/21/17 14:20 Differential Comment Slide scanned 05/19/17 06:00 Platelet Estimate Cancelled 05/22/17 17:39 Platelet Comment Cancelled 05/22/17 17:39 Platelet Comment Cancelled 05/22/17 17:39 RBC Morphology Cancelled 05/22/17 17:39 Hypochromic-Microcytic 1+ 05/17/17 06:38 Basophilic Stippling 1+ 05/28/17 08:50 Anisocytosis 2+ 05/28/17 08:50 Microcytosis 2+ 05/28/17 08:50 Macrocytosis 1+ 05/28/17 08:50 Target Cells 4+ 05/28/17 08:50 Tear Drop Cells 3+ 05/28/17 08:50 Ovalocytes 1+ 05/28/17 08:50 Fragmented RBCs 1+ 05/28/17 08:50 Schistocytes 1+ 05/17/17 06:38 Morphology Comment Slide scanned 05/28/17 08:50 ESR 18 mm/hr (0-30) 05/24/17 05:10 INR 1.69 (0.82-1.09) H 05/29/17 05:40 PTT (Actin FS) 49.8 SECONDS (26.9-34.4) H D 05/16/17 18:22 Sodium 137 mmol/L (136-145) 05/29/17 05:40 Potassium 3.5 mmol/L (3.5-5.1) 05/29/17 05:40 Chloride 101 mmol/L (98-107) 05/29/17 05:40 Carbon Dioxide 27 mmol/L (21-32) 05/29/17 05:40 Anion Gap 9 (8-16) 05/29/17 05:40 BUN 9 mg/dL (7-18) 05/29/17 05:40 Creatinine 0.6 mg/dL (0.55-1.02) 05/29/17 05:40 Creat Clearance w eGFR > 60 (>60) 05/29/17 05:40 Random Glucose 90 mg/dL (74-106) 05/29/17 05:40 Lactic Acid 1.1 mmol/L (0.4-2.0) 05/22/17 13:57 Calcium 7.8 mg/dL (8.5-10.1) L 05/29/17 05:40 Phosphorus 2.2 mg/dL (2.5-4.9) L D 05/28/17 05:35 Magnesium 1.8 mg/dL (1.8-2.4) 05/26/17 05:50 Total Bilirubin 0.8 mg/dL (0.2-1.0) 05/29/17 05:40 AST 29 U/L (15-37) 05/29/17 05:40 ALT 22 U/L (12-78) 05/29/17 05:40 Alkaline Phosphatase 192 U/L (45-117) H 05/29/17 05:40 Creatine Kinase 39 IU/L (26-192) 05/22/17 13:42 Troponin I 0.02 ng/ml (0.00-0.05) 05/22/17 13:42 C-Reactive Protein 2.7 MG/DL (0.00-0.3) H D 05/26/17 05:50 B-Natriuretic Peptide Cancelled 05/16/17 18:22 Total Protein 5.6 g/dl (6.4-8.2) L 05/29/17 05:40 Albumin 2.6 g/dl (3.4-5.0) L 05/29/17 05:40 Stool Occult Blood Negative (NEGATIVE) 05/21/17 10:00 Blood Type AB POSITIVE 05/21/17 14:20 Antibody Screen Negative 05/21/17 14:20 Crossmatch See Detail 05/21/17 14:20 Impression: 1. H/O atrial fibrillation 2. Auscultatory finding suggestive of mitral valve prolapse. 3. Hypertension. 4. S/P acute abdomen. 5. Myelodysplastic syndrome. 6. History of thrombocytosis, currently corrected. 7. History of Tucker's thyroiditis. 8. H/O Anemia Recommendations: 1. Increase ambulation. 2. Close follow up of INR. 3. Discharge when medically stable. Problem List - Problems (1) Hypertension Code(s): I10 - ESSENTIAL (PRIMARY) HYPERTENSION (2) A-fib Code(s): I48.91 - UNSPECIFIED ATRIAL FIBRILLATION Qualifiers: Atrial fibrillation type: paroxysmal Qualified Code(s): I48.0 - Paroxysmal atrial fibrillation (3) History of Tucker thyroiditis Code(s): Z86.39 - PERSONAL HISTORY OF ENDO, NUTRITIONAL AND METABOLIC DISEASE (4) Mitral valve prolapse syndrome Code(s): I34.1 - NONRHEUMATIC MITRAL (VALVE) PROLAPSE (5) Anemia Code(s): D64.9 - ANEMIA, UNSPECIFIED
--- NOTE | 2017-05-31 11:30 | PN ---
GI Progress Note Subjective: Main complaint is LE swelling Described some right sided abdominal discomfort Error in my note from yesterday. Should've read as significant increease in size of portal vein thrombus, not slight increase. Perigastric varices also noted along with splenomegaly and liver lesions raising suspicion for ? malignancy. Hematology note from yesterday reviewed No diarrhea and states having had a normal BM 5am this morning - Objective Vital Signs: Vital Signs Temperature 99.2 F 05/31/17 05:29 Pulse Rate 73 05/31/17 05:29 Respiratory Rate 18 05/31/17 05:29 Blood Pressure 140/57 05/31/17 05:29 O2 Sat by Pulse Oximetry (%) 98 05/30/17 20:49 Constitutional: Calm Eyes: No: Sclera Icterus Cardiovascular: Yes: Regular Rate and Rhythm Respiratory: Yes: Diminished (at bases b/l) Gastrointestinal Inspection: No: Distention ...Auscultate: Yes: Normoactive Bowel Sounds ...Palpate: Yes: Tenderness (Mild TTP right abdomen) Edema: Yes Edema: LLE: 2+, RLE: 2+ Neurological: Yes: Alert, Oriented Labs: CBC, BMP 05/31/17 05:35 05/31/17 05:35 INR, PTT INR 1.81 (0.82-1.09) H 05/31/17 05:35 Hepatic Panel Total Bilirubin 1.0 mg/dL (0.2-1.0) D 05/31/17 05:35 AST 33 U/L (15-37) 05/31/17 05:35 ALT 25 U/L (12-78) 05/31/17 05:35 Alkaline Phosphatase 205 U/L (45-117) H 05/31/17 05:35 Albumin 2.7 g/dl (3.4-5.0) L 05/31/17 05:35 Assessment/Plan 1. Ischemic colitis: Clinically improved Avoid stimulant laxatives 2. PVT: With significant progression. She has been on A/C and supraterapeutic during this admission At a risk for thrombosis given underlying malignancy. ? if mets in liver Per hematology note, patient does not want invasive measures. She will need continued anticoagulation and alternative therapies are being discussed as the question of failure of coumadin therapy is being raised. Transaminases remain normal suggesting that vascular perfusion of the liver not compromised. Concern would be if worsening abdominal pain develops given poor venous return from SMV / bowel congestion and potentially ischemic bowel. Heme following Problem List - Problems (1) Ischemic colitis Assessment/Plan: Clinically improved Avoid stimulant laxatives Code(s): K55.9 - VASCULAR DISORDER OF INTESTINE, UNSPECIFIED
--- NOTE | 2017-05-31 11:57 | PN ---
Progress Note (short form) - Note Progress Note: 86 year old female known case of paroxysmal atrial fibrillation,myelodysplatic syndtrome,anemia,depressionand anxiety disorder was admitted with history of a fall and c/o of consipation received laxatives and developed acute abdomen followed by diarrhea. Patient is now c/o of weakness,fatique and RUQ pain.She is also developing abdominal distention and pedal edema.No SOB reported,no palpitations or chest pain. MRI of the abdomen reveals hepatic lesions and portal extensive portal vein thrombosis, ascitis, esophageal varices. Active Medications Generic Name Dose Route Start Last Admin Trade Name Freq PRN Reason Stop Dose Admin Acetaminophen 650 mg 05/25/17 19:46 05/31/17 10:02 Tylenol - PO 650 mg Q4H PRN Administration FEVER OR PAIN Amlodipine Besylate 10 mg 05/25/17 10:00 05/31/17 10:04 Norvasc - PO 10 mg DAILY MARGARITA Administration Cholecalciferol 2,000 unit 05/25/17 10:00 05/31/17 10:04 Vitamin D3 - PO 2,000 unit DAILY MARGARITA Administration Clonazepam 0.5 mg 05/28/17 21:32 05/30/17 22:12 Klonopin - PO 0.25 mg BID PRN Administration ANXIETY Lactobacillus Acidophilus 1 tab 05/27/17 10:00 05/31/17 10:03 Bacid - PO 1 tab DAILY MARGARITA Administration Lidocaine 1 patch 05/25/17 10:00 05/31/17 10:04 Lidoderm Patch - TP 1 patch DAILY MARGARITA Administration Miscellaneous 1 each 05/24/17 22:00 05/30/17 21:07 Lidoderm Patch Removal MC Not Given DAILY@2200 MARGARITA Non-Formulary Medication 1 each 05/25/17 10:00 Patient's Own Med NR DAILY MARGARITA Sotalol HCl 120 mg 05/24/17 22:00 05/30/17 21:07 Betapace - PO 120 mg HS MARGARITA Administration Sotalol HCl 40 mg 05/25/17 07:00 05/31/17 06:45 Betapace - PO 40 mg AM MARGARITA Administration Sotalol HCl 80 mg 05/25/17 12:00 05/30/17 12:33 Betapace - PO 80 mg DAILY@1200 MARGARITA Administration Warfarin Sodium 4 mg 05/30/17 18:00 05/30/17 17:57 Coumadin - PO 4 mg DAILY@1800 MARGARITA Administration O: 86 year old female c/o abdominal discomfort, pallor+,no cyanosis or jaundice. Vital Signs - 24 hr 05/30/17 05/30/17 05/30/17 14:00 17:00 20:49 Temperature 98.2 F 98.0 F Pulse Rate 71 70 Respiratory 18 18 18 Rate Blood Pressure 133/61 116/50 O2 Sat by Pulse 98 Oximetry (%) 05/30/17 05/31/17 05/31/17 21:00 02:40 05:29 Temperature 97.8 F 98.2 F 99.2 F Pulse Rate 72 69 73 Respiratory 18 18 18 Rate Blood Pressure 123/53 148/56 140/57 O2 Sat by Pulse Oximetry (%) NECK: supple,no JVD,+ve HJR, carotids 2+,upstrokes are normal,no thyromegaly. HEART: PMI in the 5th ICS,no heaves thrills,S1 &S2 are normal,NEC along the LSB no murmur or gallops were heard. LUNGS: clear,slightly decreased breath at the rightbase. ABDOMEN:Distended, RUQ guardingand tenderness.No hepatosplenomegaly appreciated. Dullness in both flanks on percussion. EXTREMITIES: No calf tenderness,2+ pitting edema invoiving both lower ext. Abnormal Lab Results 05/31/17 05/31/17 05/31/17 05:35 05:35 05:35 RBC 3.43 L Hgb 8.6 L Hct 26.7 L MCV 77.7 L MCH 25.0 L RDW 18.1 H INR PTT (Actin FS) 44.4 H Calcium 8.0 L Alkaline Phosphatase 205 H Total Protein 5.8 L Albumin 2.7 L 05/31/17 05:35 RBC Hgb Hct MCV MCH RDW INR 1.81 H PTT (Actin FS) Calcium Alkaline Phosphatase Total Protein Albumin IMPRESSION: 1.Extensive portal vein thrombosis wih clinical evidence of portal hypertension, etiology: a). Hypercoagulable state related underlying neoplasm. b). 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 c). Myelodysplastic syndrome. 2. Hypertension. 3. Paroxysmal atrial fibrillation. 4. Portopulmonary hypertenion should excluded. 5. Recent abdominal symptoms, partly related to #1 6. Anemia/Myelodysplastic syndrome. RECOMMENDATIONS: 1. consider CTA or V/Q scan of the chest to exclude PTE. 2. F/U echocardiogram. 3. Cautious addition of diuretics. 4. Patient most likely will require Heparin, in view of failure of coumadin to prevent thrombosis. Problem List - Problems (1) Hypertension Code(s): I10 - ESSENTIAL (PRIMARY) HYPERTENSION (2) A-fib Code(s): I48.91 - UNSPECIFIED ATRIAL FIBRILLATION Qualifiers: Atrial fibrillation type: paroxysmal Qualified Code(s): I48.0 - Paroxysmal atrial fibrillation (3) History of Tucker thyroiditis Code(s): Z86.39 - PERSONAL HISTORY OF ENDO, NUTRITIONAL AND METABOLIC DISEASE (4) Mitral valve prolapse syndrome Code(s): I34.1 - NONRHEUMATIC MITRAL (VALVE) PROLAPSE (5) Anemia Code(s): D64.9 - ANEMIA, UNSPECIFIED
--- NOTE | 2017-05-31 12:45 | PN ---
Progress Note (short form) - Note Progress Note: Patients seen and examined. Events noted. All consults noted. she is s/p MRI abdomen on 05/31/2017. She feels tired, also says her has right sided abdominal pain. Otherwise no other complains. General: in NAD Extremities: No pallor or icterus, no pedal edema. Chest:CTA b/l. Neuro: Alert, oriented, non-focal. CVS: Normal sinus rhythm, S1, S2, no gallop or murmur. H and N: R parotid mass palpable LE: edema bilateral present Last Vital Signs Temp Pulse Resp BP Pulse Ox 98.4 F 72 18 133/48 98 05/31/17 10:00 05/31/17 10:00 05/31/17 10:00 05/31/17 10:00 05/30/17 20:49 CBC, BMP 05/31/17 05:35 05/31/17 05:35 Current Medications Generic Name Dose Route Start Last Admin Trade Name Freq PRN Reason Stop Dose Admin Acetaminophen 650 mg 05/25/17 19:46 05/31/17 10:02 Tylenol - PO 650 mg Q4H PRN Administration FEVER OR PAIN Amlodipine Besylate 10 mg 05/25/17 10:00 05/31/17 10:04 Norvasc - PO 10 mg DAILY MARGARITA Administration Cholecalciferol 2,000 unit 05/25/17 10:00 05/31/17 10:04 Vitamin D3 - PO 2,000 unit DAILY MARGARITA Administration Clonazepam 0.5 mg 05/28/17 21:32 05/30/17 22:12 Klonopin - PO 0.25 mg BID PRN Administration ANXIETY Enoxaparin Sodium 80 mg 05/31/17 12:45 Lovenox - SQ ONCE MARGARITA Lactobacillus Acidophilus 1 tab 05/27/17 10:00 05/31/17 10:03 Bacid - PO 1 tab DAILY MARGARITA Administration Lidocaine 1 patch 05/25/17 10:00 05/31/17 10:04 Lidoderm Patch - TP 1 patch DAILY MARGARITA Administration Miscellaneous 1 each 05/24/17 22:00 05/30/17 21:07 Lidoderm Patch Removal MC Not Given DAILY@2200 MARGARITA Non-Formulary Medication 1 each 05/25/17 10:00 Patient's Own Med NR DAILY MARGARITA Sotalol HCl 120 mg 05/24/17 22:00 05/30/17 21:07 Betapace - PO 120 mg HS MARGARITA Administration Sotalol HCl 40 mg 05/25/17 07:00 05/31/17 06:45 Betapace - PO 40 mg AM MARGARITA Administration Sotalol HCl 80 mg 05/25/17 12:00 05/30/17 12:33 Betapace - PO 80 mg DAILY@1200 MARGARITA Administration Assessment/Plan: Portal vein thrombosis: -from her underlying Myeloproliferative neoplasm (she is not on any systemic therapy for the underlying thrombogenic diathesis) -significant progression noted as per MRI report on 05/30, options discussed yesterday. - agreed for therapeutic doses of Lovenox. -Dose: 1.5mg/kg/day for now indefinite. Likely abd pain will improve. (80mg, weight was 56kg) -question remains to consider NOACs in the future. PMF from ET: -presently holding off hydrea -splenomegaly from PMF. MALToma ( parotid) -will need to resume RT Iron Overload: -confirmed from MRI -?out patient chelation -Patient recovered from suspected ischemic colitis Paroxysmal AC: -will need systemic a/c LE edema: -?from the thrombus -?small dose of diuresis Compression fracture discussed with Hospitalist team
[2017-05-31] MEDS ORDERED: ENOXAPARIN NA (PORCINE) 80 MG/0.8 ML DISP.SYRIN SQ ONE (14:15)
[2017-05-31] MEDS: clonazePAM 0.5 MG TABLET PO PRN (16:49)
--- NOTE | 2017-05-31 17:53 | PN ---
Teaching Attending Note Name of Resident: Maryse Hung ATTENDING PHYSICIAN STATEMENT I saw and evaluated the patient. I reviewed the resident's note and discussed the case with the resident. I agree with the resident's findings and plan as documented. SUBJECTIVE: denies SOB or cough . has RUQ minimal pain. one formed BM this am OBJECTIVE: NAD , AAOx3 CV: irreg irreg , 2/6 SM at LLSB Lungs: crackles heard over R upper anterior lung Ext : no edema over LE Abd: soft, minimal TTP in RUQ , Neg Vazquez;s , no rebound tenderness or guarding ASSESSMENT AND PLAN: 86 y/o lady with h/o Lymphoma , on radiation , myelo-proliferative disease , HTN , A fib on coumadin and other medical problems who presented after a mechanical fall. 1- Portal vein thrombus with expansion : pt agrees to Lovenox. started 1.5 mg /kg /daily due to possibl e coumadin failure 2- Mechanical fall,s/p T12 Fx - cont lidocaine patch and tylenol 3- H/O A fib: -On LOvenox - cont sotalol 4- Possible ischemic VS infectious colitis. improved sx . no more diarrhea. off ABx with no leukocytosis and no fever . need GI f/u for possible colonoscopy low residue diet 5- H/o MALT Lymphoma. off hydroxyuria for now f/u as outpt 6- HTN : cont norvasc 7-Elevated ALk phos, could be due to abx. Also has liver mets. dispo: dc to rehab today
[2017-05-31 19:00] VITALS: BP 130/60; PULSE 67; TEMP 98
--- NOTE | 2017-06-01 09:42 | DS ---
Physical Exam: SUBJECTIVE: Patient seen and examined this AM. She states that she has minimal RUQ abdominal pain. She denies CP, SOB, fevers, chills. Pt had one formed BM this AM, now having regular bowel movements. Back pain has decreased. OBJECTIVE: Vital Signs Period Temp Pulse Resp BP Sys/Conde Pulse Ox Last 24 Hr 98.0 F-98.4 F 67-72 18-18 126-133/45-60 94 PHYSICAL EXAM GENERAL: The patient is awake, alert, sitting upright in bed, not in distress, looks better than yesterday EYES: PERRL, extraocular movements intact ENT: Dry mucous membranes, R sided tongue bluish discoloration, R sided yellow circular tongue sores NECK: Neck was supple, not tender to palpation. Mildly limited ROM of neck, discomfort with movement LUNGS: Breath sounds equal, upper lung hernández were clear to auscultation bilaterally HEART: Bradycardic rate, regular rhythm, S1, S2 +2/6 systolic murmur heard best in the tricuspid region ABDOMEN: Protuberant abdomen which is unchanged, soft, no guarding, no rebound tenderness, normoactive bowel sounds EXTREMITIES: 2+ pulses, warm, well-perfused, +2 edema BLLE. Telangiectasias present on extremities. NEUROLOGICAL: Patient is oriented to person, place, and month. Cranial nerves II through XII were intact. Sensation was intact in the face and body bilaterally. Muscle strength was 5/5 in all extremities. Reflexes were 2+ in all extremities. FTN test was intact. Vibratory sensation and proprioception was intact. Gait was not observed. LABS Laboratory Last Values WBC 8.0 K/mm3 (4.0-10.0) 05/31/17 05:35 Corrected WBC (auto) Cancelled 05/22/17 17:39 RBC 3.43 M/mm3 (3.60-5.2) L 05/31/17 05:35 Hgb 8.6 GM/dL (10.7-15.3) L 05/31/17 05:35 Hct 26.7 % (32.4-45.2) L 05/31/17 05:35 MCV 77.7 fl (80-96) L 05/31/17 05:35 MCH 25.0 pg (25.7-33.7) L 05/31/17 05:35 MCHC 32.2 g/dl (32.0-36.0) 05/31/17 05:35 RDW 18.1 % (11.6-15.6) H 05/31/17 05:35 Plt Count 271 K/MM3 (134-434) 05/31/17 05:35 MPV 8.9 fl (7.5-11.1) 05/31/17 05:35 Neutrophils % 79.6 % (42.8-82.8) 05/28/17 08:50 Lymphocytes % 7.1 % (8-40) L 05/28/17 08:50 Monocytes % 8.7 % (3.8-10.2) 05/28/17 08:50 Eosinophils % 3.2 % (0-4.5) 05/28/17 08:50 Basophils % 1.4 % (0-2.0) 05/28/17 08:50 Band Neutrophils 15.0 % (0-10) H 05/21/17 14:20 Metamyelocytes 1 % (0-2) 05/21/17 14:20 Myelocytes 1 % (0-2) 05/21/17 14:20 Differential Comment Slide scanned 05/19/17 06:00 Platelet Estimate Cancelled 05/22/17 17:39 Platelet Comment Cancelled 05/22/17 17:39 Platelet Comment Cancelled 05/22/17 17:39 RBC Morphology Cancelled 05/22/17 17:39 Hypochromic-Microcytic 1+ 05/17/17 06:38 Basophilic Stippling 1+ 05/28/17 08:50 Anisocytosis 2+ 05/28/17 08:50 Microcytosis 2+ 05/28/17 08:50 Macrocytosis 1+ 05/28/17 08:50 Target Cells 4+ 05/28/17 08:50 Tear Drop Cells 3+ 05/28/17 08:50 Ovalocytes 1+ 05/28/17 08:50 Fragmented RBCs 1+ 05/28/17 08:50 Schistocytes 1+ 05/17/17 06:38 Morphology Comment Slide scanned 05/28/17 08:50 ESR 18 mm/hr (0-30) 05/24/17 05:10 INR 1.81 (0.82-1.09) H 05/31/17 05:35 PTT (Actin FS) 44.4 SECONDS (26.9-34.4) H 05/31/17 05:35 Sodium 137 mmol/L (136-145) 05/31/17 05:35 Potassium 4.2 mmol/L (3.5-5.1) 05/31/17 05:35 Chloride 100 mmol/L (98-107) 05/31/17 05:35 Carbon Dioxide 29 mmol/L (21-32) 05/31/17 05:35 Anion Gap 8 (8-16) 05/31/17 05:35 BUN 14 mg/dL (7-18) D 05/31/17 05:35 Creatinine 0.6 mg/dL (0.55-1.02) 05/31/17 05:35 Creat Clearance w eGFR > 60 (>60) 05/31/17 05:35 Random Glucose 88 mg/dL (74-106) 05/31/17 05:35 Lactic Acid 1.1 mmol/L (0.4-2.0) 05/22/17 13:57 Calcium 8.0 mg/dL (8.5-10.1) L 05/31/17 05:35 Phosphorus 2.2 mg/dL (2.5-4.9) L D 05/28/17 05:35 Magnesium 1.8 mg/dL (1.8-2.4) 05/26/17 05:50 Total Bilirubin 1.0 mg/dL (0.2-1.0) D 05/31/17 05:35 AST 33 U/L (15-37) 05/31/17 05:35 ALT 25 U/L (12-78) 05/31/17 05:35 Alkaline Phosphatase 205 U/L (45-117) H 05/31/17 05:35 Creatine Kinase 39 IU/L (26-192) 05/22/17 13:42 Troponin I 0.02 ng/ml (0.00-0.05) 05/22/17 13:42 C-Reactive Protein 2.7 MG/DL (0.00-0.3) H D 05/26/17 05:50 B-Natriuretic Peptide Cancelled 05/16/17 18:22 Total Protein 5.8 g/dl (6.4-8.2) L 05/31/17 05:35 Albumin 2.7 g/dl (3.4-5.0) L 05/31/17 05:35 Stool Occult Blood Negative (NEGATIVE) 05/21/17 10:00 Blood Type AB POSITIVE 05/21/17 14:20 Antibody Screen Negative 05/21/17 14:20 Crossmatch See Detail 05/21/17 14:20 HOSPITAL COURSE: Date of Admission:05/17/17 Date of Discharge: 06/01/17 Ms Lai is an 86yo F with PMHx of Afib on Coumadin, MALT Lymphoma and Myeloproliferative Disorder. She was brought by EMS after a mechanical fall and was admitted for r/o bleed. She sustained a mild T12 compression fracture. During the hospitalization she developed ischemic/infectious colitis which was treated appropriately. We also noted interval progression of her existing portal vein thrombosis. The patient was discharged to [facility] for physical rehabilitation, and will be followed by multiple physicians. # S/p mechanical fall - Because the patient was taking Coumadin, we ordered CT scans which ruled out any acute bleeds. # T12 Compression Fracture - Neurosurgery saw her in the hospital and recommended conservative management. Her pain was controlled with medications. The patient will be discharged to [facility] for further physical rehab on Tylenol 650mg Q4PRN and Lidocaine Patch. She will followup with Neurosurgery as an outpatient. # Hx of Afib with Supratherapeutic INR - resolved - During the hospitalization, the patient's INR became supratherapeutic (Max 9.42), likely from low PO intake + back pain meds + antibiotic use. There were no acute bleeds during that time. She was given a dose of Vitamin K 2.5mg PO without FFP. Her INR resolved with time, and the patient is now switched to Lovenox SQ for anticoagulation. For rate control, her Notching Machine Operator Dr. Loaiza changed her Sotalol schedule to: 40mg AM + 80mg afternoon + 120mg HS. She will followup with him as an outpatient # Acute Ischemic Colitis / Infectious Colitis - The patient was constipated for 3-4 days, partially due to her known sigmoid stricture, and was treated with an aggressive bowel regimen. She then complained of severe abdominal pain and had 3 episodes of emeis (one was dark), and multiple liquid dark brown bowel movements. C. diff toxin was negative. Gastroenterology saw the patient who was not concerned for melena. Since this was in the setting of her supratherapeutic INR, the vomitting and diarrhea could have lead to mucosal trauma and oozing of blood. A CT abd/pelvis showed no perforation, no pneumatosis, but demonstrated colitis. The colitis was likely ischemic after the GI fluid loss. The patient was started on fluids and antibiotics (Flagyl + Zosyn) to cover for a possible infectious component, and transferred to the ICU for closer monitoring. A surgical evaluation was undertaken in the interim since rebound tenderness was elicited on exam. Surgery saw the patient daily and as the patient improved, they recommended conservative management. The patient is now having regular bowel movements, with decreased abdominal pain and no rebound tenderness. She will followup with Gastroenterology outpatient for a colonoscopy # Hx of burnt out ET with anemia - Pt has hx of transfusion dependent anemia, maintained on Epo 1-2x weekly. She was followed very closely by her Oncology team during the hospitalization. She was given a dose of Epo 40,000 U x1 and received 1 unit of blood. Her H/H remained stable at discharge. She will follow up with her Oncologist outpatient # Portal Vein Thrombus - The patient has a history of a portal vein thrombus. An abdominal MRI taken during this hospitalization showed interval progression of the thrombus into the R and L portal venous branches. Transaminases remain normal, suggesting that the vascular perfusion of the liver is not compromised. Since the thrombus progression occurred while the patient was on Coumadin and had mostly therapeutic levels for the past month, concern for Coumadin failure arose. The patient did not want invasive measures of treatment. Different methods of anticoagulation were discussed and the patient decided on Lovenox SQ injections. The concern in the future if the thrombus continues to grow is poor portal venous return, bowel congestion and potentially ischemic bowel. 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 The patient's daughters were kept updated throughout the hospital course. Minutes to complete discharge: 55 Discharge Summary Reason For Visit: ATRIAL FIBRILLATION, COMPRESSION FRACTURE OF Current Active Problems Abdominal pain (Acute) Compression fracture of lumbar vertebra (Acute) Ischemic colitis (Acute) Peritonitis (Acute) Supratherapeutic INR (Acute) Anemia (Chronic) Anxiety (Chronic) GERD (gastroesophageal reflux disease) (Chronic) Tucker's thyroiditis (Chronic) History of Coumadin therapy (Chronic) Hydronephrosis (Chronic) Hypertension (Chronic) MALT lymphoma (Chronic) Myelodysplastic syndrome (Chronic) Myeloproliferative disease (Chronic) Portal vein thrombosis (Chronic) Condition: Improved - Instructions Diet, Activity, Other Instructions: - You need to follow with hematology and gastroenterology (Dr. Eaton) to followup on the thrombus in your portal vein. - Your coumadin was stopped and now you are on Lovenox injections daily. - Your Sotalol dose was changed from 80mg three times a day to Sotalol 40mg in the AM, 80mg in the afternoon, and 120 mg at night. - Report any bleeding to your doctor - You might need a colonoscopy due to your colitis, so please followup with Dr. Eaton - Please followup with your Primary Care Doctor - You need CBC and LFTs in 1 week. - Please followup with your information systems security specialist - Please followup with your neurosurgeon for your back - If you have any serious symptoms, please return to the ER Referrals: Abebe Noriega MD [Primary Care Provider] - 1 Week Brandon Zambrano MD [Staff Physician] - 1 Week Kehinde Osuna MD [Staff Physician] - 2 Weeks (Followup spine X-ray) Raisa Rodriguez MD [Staff Physician] - 1 Week Robert Loaiza MD [Staff Physician] - 1 Week Disposition: LONG TERM FACILITY - Home Medications Comprehensive Discharge Medication List: Ambulatory Orders Amlodipine Besylate [Norvasc -] 10 mg PO DAILY #0 tablet 05/13/13 Clonazepam [Klonopin] 0.5 mg PO BID 04/21/14 Ranitidine [Zantac -] 150 mg PO BID 06/10/15 Cholecalciferol (Vitamin D3) [Vitamin D3] 2,000 unit PO DAILY 03/22/16 Epoetin Chris [Procrit] 0 unit IJ ASDIR 09/11/16 Cranberry 400 mg PO DAILY 02/21/17 Pot Sor/Hy-Ethylcel/Pvp/Hyalur [Gelclair Oral Gel Packet] 15 ml MM DAILY #1 gel.packet 05/16/17 Systane Ultra 0.4-0.3% Eye Drp 1 drop TID 05/18/17 Acetaminophen [Tylenol .Regular Strength -] 650 mg PO Q4H PRN #30 tablet Lactobacillus Acidophilus [Acidophilus Lactobacilli] 1 each PO DAILY #30 capsule 05/29/17 Lidocaine 5% Patch [Lidoderm -] 1 patch TP DAILY #30 patch 05/29/17 Lidocaine Patch Removal [Lidoderm Patch Removal] 1 each MC DAILY@2200 #30 each 05/29/17 Mag Hydrox/Alh/Smc/Dpha/Lido [Magic Mouthwash *r Formula* -] 15 ml MM Q6HPO # 1 bottle 05/29/17 Sotalol HCl [Betapace -] 40 mg PO AM #30 tablet 05/29/17 Sotalol HCl [Betapace -] 80 mg PO DAILY@1200 #30 tablet 05/29/17 Sotalol HCl [Betapace -] 120 mg PO HS #30 tablet 05/29/17 Enoxaparin [Lovenox -] 80 mg SQ DAILY #30 dis.syr 05/31/17 This patient is new to me today: No Emergency Visit: No Critical Care patient: No - Discharge Referral Referred to [facility] No
[2017-06-01] MEDS ORDERED: ENOXAPARIN NA (PORCINE) 80 MG/0.8 ML DISP.SYRIN SQ SCH (10:00)
--- NOTE | 2017-06-05 04:03 | HP ---
CHIEF COMPLAINT: PCP: HISTORY OF PRESENT ILLNESS: ER course was notable for: (1) (2) (3) Recent Travel: PAST MEDICAL HISTORY: PAST SURGICAL HISTORY: Social History: Smoking: Alcohol: Drugs: Family History: Allergies propoxyphene napsylate [From Darvocet-N 100] Allergy (Severe, Verified 06/04/17 21:22) Swelling aspirin Allergy (Verified 06/04/17 21:22) Difficulty Breathing HOME MEDICATIONS: Home Medications Medication Instructions Recorded Amlodipine Besylate [Norvasc -] 10 mg PO DAILY #0 tablet 05/13/13 Clonazepam [Klonopin] 0.5 mg PO BID 04/21/14 Ranitidine [Zantac -] 150 mg PO BID 06/10/15 Cholecalciferol (Vitamin D3) 2,000 unit PO DAILY 03/22/16 [Vitamin D3] Epoetin Chris [Procrit] 0 unit IJ ASDIR 09/11/16 Cranberry 400 mg PO DAILY 02/21/17 Pot Sor/Hy-Ethylcel/Pvp/Hyalur 15 ml MM DAILY #1 gel.packet 05/16/17 [Gelclair Oral Gel Packet] Systane Ultra 0.4-0.3% Eye Drp 1 drop TID 05/18/17 Acetaminophen [Tylenol .Regular 650 mg PO Q4H PRN #30 tablet 05/29/17 Strength -] Lactobacillus Acidophilus 1 each PO DAILY #30 capsule 05/29/17 [Acidophilus Lactobacilli] Lidocaine 5% Patch [Lidoderm -] 1 patch TP DAILY #30 patch 05/29/17 Lidocaine Patch Removal [Lidoderm 1 each MC DAILY@2200 #30 each 05/29/17 Patch Removal] Mag Hydrox/Alh/Smc/Dpha/Lido 15 ml MM Q6HPO #1 bottle 05/29/17 [Magic Mouthwash *Sjr Formula* -] Sotalol HCl [Betapace -] 40 mg PO AM #30 tablet 05/29/17 Sotalol HCl [Betapace -] 80 mg PO DAILY@1200 #30 tablet 05/29/17 Sotalol HCl [Betapace -] 120 mg PO HS #30 tablet 05/29/17 Enoxaparin [Lovenox -] 80 mg SQ DAILY #30 dis.syr 05/31/17 REVIEW OF SYSTEMS CONSTITUTIONAL: Absent: fever, chills, diaphoresis, generalized weakness, malaise, loss of appetite, weight change HEENT: Absent: rhinorrhea, nasal congestion, throat pain, throat swelling, difficulty swallowing, mouth swelling, ear pain, eye pain, visual changes CARDIOVASCULAR: Absent: chest pain, syncope, palpitations, irregular heart rate, lightheadedness , peripheral edema RESPIRATORY: Absent: cough, shortness of breath, dyspnea with exertion, orthopnea, wheezing, stridor, hemoptysis GASTROINTESTINAL: Absent: abdominal pain, abdominal distension, nausea, vomiting, diarrhea, constipation, melena, hematochezia GENITOURINARY: Absent: dysuria, frequency, urgency, hesitancy, hematuria, flank pain, genital pain MUSCULOSKELETAL: Absent: myalgia, arthralgia, joint swelling, back pain, neck pain SKIN: Absent: rash, itching, pallor HEMATOLOGIC/IMMUNOLOGIC: Absent: easy bleeding, easy bruising, lymphadenopathy, frequent infections ENDOCRINE: Absent: unexplained weight gain, unexplained weight loss, heat intolerance, cold intolerance NEUROLOGIC: Absent: headache, focal weakness or paresthesias, dizziness, unsteady gait, seizure, mental status changes, bladder or bowel incontinence PSYCHIATRIC: Absent: anxiety, depression, suicidal or homicidal ideation, hallucinations. PHYSICAL EXAMINATION GENERAL: Awake, alert, and fully oriented, in no acute distress. HEAD: Normal with no signs of trauma. EYES: Pupils equal, round and reactive to light, extraocular movements intact, sclera anicteric, conjunctiva clear. No lid lag. EARS, NOSE, THROAT: Ears normal, nares patent, oropharynx clear without exudates. Moist mucous membranes. NECK: Normal range of motion, supple without lymphadenopathy, JVD, or masses. LUNGS: Breath sounds equal, clear to auscultation bilaterally. No wheezes, and no crackles. No accessory muscle use. HEART: Regular rate and rhythm, normal S1 and S2 without murmur, rub or gallop. ABDOMEN: Soft, nontender, not distended, normoactive bowel sounds, no guarding, no rebound, no masses. No hepatomegaly or splenomegaly. MUSCULOSKELETAL: Normal range of motion at all joints. No bony deformities or tenderness. No CVA tenderness. UPPER EXTREMITIES: 2+ pulses, warm, well-perfused. No cyanosis. No clubbing. No peripheral edema. LOWER EXTREMITIES: 2+ pulses, warm, well-perfused. No calf tenderness. No peripheral edema. NEUROLOGICAL: Cranial nerves II-XII intact. Normal speech. Normal gait. PSYCHIATRIC: Cooperative. Good eye contact. Appropriate mood and affect. SKIN: Warm, dry, normal turgor, no rashes or lesions noted, normal capillary refill. Radiology Results EXAM: CT abdomen and pelvis without contrast IMAGES: 490 INDICATION: Pain. Rule out colitis. DATE OF SERVICE: 2017-06-05 01:15:43.0 COMPARISON: 05/21/17 THIS IS A PRELIMINARYREPORT FROM IMAGING ENTRY LEVEL PROJECT COORDINATOR FINDINGS: Mild increase in the moderate-sized bilateral pleural effusions with compressive atelectasis and/or pneumonia. The heart is enlarged. Again noted is splenomegaly, and multiple peripheral regions of low attenuation. Although evaluation is limited without contrast on the very suspicious for multiple splenic infarcts. Normal unenhanced liver, gallbladder, pancreas, adrenal glands and kidneys. The stomach and abdominal small and large bowel are normal. There is no aortic aneurysm. There is no significant retroperitoneal lymphadenopathy. There is a slight increase in small amount of ascites. No change in retroperitoneal mesenteric adenopathy The pelvic small and large bowel are normal. There is no evidence of appendicitis. The uterus and adnexal structures are normal. Urinary bladder is unremarkable. No discrete pelvic lymphadenopathy is identified. No suspicious bone lesions. She subcutis edema could represent anasarca. Findings discussed with Dr. Rios at 2:03 AM. 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 Splenomegaly is unchanged. Resolution of prior colitis. Mild worsening of moderate-sized bilateral pleural effusions with compressive atelectasis and/or pneumonia. Slight increase in small amount of ascites. Possible anasarca. THIS DOCUMENT HAS BEEN ELECTRONICALLY SIGNED Tyler Pereira MD 06/05/2017 02: 08 EST ASSESSMENT/PLAN:
== END 2017-05-31 18:49 | DRG 551 ==
LOC: JER 17:45 → UNDOADMOB 20:45 → INTOOBSV 20:45 → JERBED 20:45 → J6S 23:53 → JERBED 23:53 → J6S 05-17 14:47 → JERBED 05-17 14:47 → OBSVTOIN 05-17 19:20 → JICU 05-22 15:18 → J4W 05-24 14:10
PROVIDERS: ADMIT Internal Medicine; ATTEND Internal Medicine
PROC: 30233N1 Transfusion of Nonautologous Red Blood Cells into Peripheral Vein, Percutaneous Approach (ICD-10-PCS; principal; 2017-05-21)
DX: S22.080A Wedge compression fracture of T11-T12 vertebra, initial encounter for closed fracture (principal); I81 Portal vein thrombosis; K55.039 Acute (reversible) ischemia of large intestine, extent unspecified; C94.6 Myelodysplastic disease, not elsewhere classified; C88.4 Extranodal marginal zone B-cell lymphoma of mucosa-associated lymphoid tissue [MALT-lymphoma]; K56.7 Ileus, unspecified; D68.32 Hemorrhagic disorder due to extrinsic circulating anticoagulants; K55.9 Vascular disorder of intestine, unspecified; A09 Infectious gastroenteritis and colitis, unspecified; S09.90XA Unspecified injury of head, initial encounter; W17.89XA Other fall from one level to another, initial encounter; Y93.89 Activity, other specified; Y92.018 Other place in single-family (private) house as the place of occurrence of the external cause; D64.9 Anemia, unspecified; I48.0 Paroxysmal atrial fibrillation; I34.1 Nonrheumatic mitral (valve) prolapse; I10 Essential (primary) hypertension; D47.3 Essential (hemorrhagic) thrombocythemia; E06.3 Autoimmune thyroiditis; Z79.01 Long term (current) use of anticoagulants; Z87.891 Personal history of nicotine dependence; M81.0 Age-related osteoporosis without current pathological fracture; K13.79 Other lesions of oral mucosa; J30.9 Allergic rhinitis, unspecified; F41.9 Anxiety disorder, unspecified; M47.9 Spondylosis, unspecified; K59.03 Drug induced constipation; T40.695A Adverse effect of other narcotics, initial encounter; T45.515A Adverse effect of anticoagulants, initial encounter; E83.39 Other disorders of phosphorus metabolism
CPT/HCPCS: 36415; 36430; 70450-TC; 71010-TC; 72125-TC; 72131-TC; 74000-TC; 74176-TC; 74183-TC; 76700-TC; 80048; 80053; 82272; 82550; 83605; 83735; 84100; 84484; 85025; 85027; 85610; 85651; 85730; 86140; 86850; 86900; 86901; 86922; 87040; 87324; 87449; 93005; 93010; 93306-TC; 94010; 97116-GP; 97161-GP; 99283-25; G0378; J0885; J1644; J8999; P9038; P9058; Q9967

== ENCOUNTER 2017-06-04 21:11 | Inpatient (IN) | payer OTHER, MEDICARE ==
--- NOTE | 2017-06-04 23:12 | PDOC ---
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 The patient states her abdomen has progressively worsened over the past few days however denies any nausea, vomiting or diarrhea. The patient denies chest pain, headache or dizziness. She denies fever, chills, abdominal pain, or constipation. She denies dysuria, frequency, urgency or hematuria. Allergies: propoxyphene napsylate, aspirin Past surgical history: Appendectomy, Mitral valve surgery Social history:Former smoker (60 years ago) PCP: Dr. Noriega <Viola Vital - Last Filed: 06/05/17 02:33> - General Chief Complaint: Revisit, Lab Variance Stated Complaint: ABNORMAL LABS Time Seen by Provider: 06/04/17 21:23 Past History - Past Medical History Anemia: Yes (HIGH PLATELETS,freq transfusions) Asthma: No Cancer: Yes (lymphomia) Cardiac Disorders: Yes (AFIB, mvp) CVA: No COPD: No CHF: No Dementia: No Diabetes: No GI Disorders: Yes (esophageal reflux, ulcer) Disorders: No HTN: Yes Hypercholesterolemia: No Liver Disease: No Seizures: No Thyroid Disease: No (Al's) - Surgical History Abdominal Surgery: Yes (BOTH OVARIES) Appendectomy: Yes Cardiac Surgery: Yes (Mitral Valve) Cholecystectomy: No Lung Surgery: No Neurologic Surgery: No Orthopedic Surgery: No - Immunization History Td Vaccination: Yes Immunization Up to Date: Yes - Psycho/Social/Smoking Cessation Hx Anxiety: No Suicidal Ideation: No Smoking Status: No Smoking History: Never smoked Years of Tobacco Use: 0 Have you smoked in the past 12 months: No Number of Cigarettes Smoked Daily: 2 If you are a former smoker, when did you quit?: 60 years ago Cigars Per Day: 0 Information on smoking cessation initiated: No 'Breaking Loose' booklet given: 03/28/12 Hx Alcohol Use: No Drug/Substance Use Hx: No Substance Use Type: None Hx Substance Use Treatment: No <Greg Rios - Last Filed: 06/05/17 02:12> <AmanuelViola - Last Filed: 06/05/17 02:33> - Past Medical History Allergies/Adverse Reactions: Allergies Allergy/AdvReac Type Severity Reaction Status Date / Time propoxyphene napsylate Allergy Severe Swelling Verified 06/04/17 21:22 [From Darvocet-N 100] aspirin Allergy Difficulty Verified 06/04/17 21:22 Breathing Home Medications: Ambulatory Orders Amlodipine Besylate [Norvasc -] 10 mg PO DAILY #0 tablet 05/13/13 Clonazepam [Klonopin] 0.5 mg PO BID 04/21/14 Ranitidine [Zantac -] 150 mg PO BID 06/10/15 Cholecalciferol (Vitamin D3) [Vitamin D3] 2,000 unit PO DAILY 03/22/16 Epoetin Chris [Procrit] 0 unit IJ ASDIR 09/11/16 Cranberry 400 mg PO DAILY 02/21/17 Pot Sor/Hy-Ethylcel/Pvp/Hyalur [Gelclair Oral Gel Packet] 15 ml MM DAILY #1 gel.packet 05/16/17 Systane Ultra 0.4-0.3% Eye Drp 1 drop TID 05/18/17 Acetaminophen [Tylenol .Regular Strength -] 650 mg PO Q4H PRN #30 tablet Lactobacillus Acidophilus [Acidophilus Lactobacilli] 1 each PO DAILY #30 capsule 05/29/17 Lidocaine 5% Patch [Lidoderm -] 1 patch TP DAILY #30 patch 05/29/17 Lidocaine Patch Removal [Lidoderm Patch Removal] 1 each MC DAILY@2200 #30 each 05/29/17 Mag Hydrox/Alh/Smc/Dpha/Lido [Magic Mouthwash *Sjr Formula* -] 15 ml MM Q6HPO # 1 bottle 05/29/17 Sotalol HCl [Betapace -] 40 mg PO AM #30 tablet 05/29/17 Sotalol HCl [Betapace -] 80 mg PO DAILY@1200 #30 tablet 05/29/17 Sotalol HCl [Betapace -] 120 mg PO HS #30 tablet 05/29/17 Enoxaparin [Lovenox -] 80 mg SQ DAILY #30 dis.syr 05/31/17 Review of Systems - Review of Systems Able to Perform ROS?: Yes Comments:: 06/04/17 23:36 GENERAL/CONSTITUTIONAL: No fever or chills. No weakness. HEAD, EYES, EARS, NOSE AND THROAT: No change in vision. No ear pain or discharge. No sore throat. CARDIOVASCULAR: No chest pain or shortness of breath. RESPIRATORY: No cough, wheezing, or hemoptysis. GASTROINTESTINAL: +abdominal distention No nausea, vomiting, diarrhea or constipation. GENITOURINARY: No dysuria, frequency, or change in urination. MUSCULOSKELETAL: No joint or muscle swelling or pain. No neck or back pain. SKIN: No rash NEUROLOGIC: No headache, vertigo, loss of consciousness, or change in strength/ sensation. ENDOCRINE: No increased thirst. No abnormal weight change. HEMATOLOGIC/LYMPHATIC: No anemia, easy bleeding, or history of blood clots. ALLERGIC/IMMUNOLOGIC: No hives or skin allergy. <Viola Vital - Last Filed: 06/05/17 02:33> *Physical Exam - Vital Signs Last Vital Signs Temp Pulse Resp BP Pulse Ox 98.9 F 63 18 145/52 96 06/04/17 21:18 06/04/17 21:18 06/04/17 21:18 06/04/17 21:18 06/04/17 21:18 <Greg Rios - Last Filed: 06/05/17 02:12> - Vital Signs Last Vital Signs Temp Pulse Resp BP Pulse Ox 98.9 F 63 18 145/52 96 06/04/17 21:18 06/04/17 21:18 06/04/17 21:18 06/04/17 21:18 06/04/17 21:18 - Physical Exam Comments: 06/04/17 23:36 GENERAL: Awake, alert, and fully oriented, in no acute distress HEAD: No signs of trauma EYES: PERRLA, EOMI, sclera anicteric, conjunctiva clear ENT: Auricles normal inspection, hearing grossly normal, nares patent, oropharynx clear without exudates. Moist mucosa NECK: Normal ROM, supple, no lymphadenopathy, JVD, or masses LUNGS: Breath sounds equal, clear to auscultation bilaterally. No wheezes. + Bilateral crackles. HEART: Regular rate and rhythm, normal S1 and S2, no murmurs, rubs or gallops ABDOMEN: +Minimally distended. Nontender, normoactive bowel sounds. No guarding , no rebound. No masses EXTREMITIES: Normal range of motion, no edema. No clubbing or cyanosis. No cords, erythema, or tenderness. +Trace edema. NEUROLOGICAL: Cranial nerves II through XII grossly intact. Normal speech, normal gait SKIN: Warm, Dry, normal turgor, no rashes or lesions noted. <Viola Vital - Last Filed: 06/05/17 02:33> ED Treatment Course - LABORATORY CBC & Chemistry Diagram: 06/04/17 23:30 06/04/17 23:30 <Greg Rios - Last Filed: 06/05/17 02:12> - LABORATORY CBC & Chemistry Diagram: 06/04/17 23:30 06/04/17 23:30 <Viola Vital - Last Filed: 06/05/17 02:33> Medical Decision Making - Medical Decision Making 06/05/17 02:12 Dr. Rios: The scribe's documentation has been prepared under my direction and personally reviewed by me in its entirery. I confirm that the note above accurately reflects all work, treatment, procedures, and medical decision making performed by me. <Greg Rios - Last Filed: 06/05/17 02:12> *DC/Admit/Observation/Transfer - Discharge Dispostion Admit: Yes <Greg Rios - Last Filed: 06/05/17 02:12> - Attestations Scribe Attestion: 06/04/17 23:36 Documentation prepared by Viola Vital, acting as medical affairs manager for Greg Rios DO <Viola Vital - Last Filed: 06/05/17 02:33> Diagnosis at time of Disposition: Anemia, Portal vein thrombosis, Abdominal pain, Splenic infarct, Pleural effusion Ascites Qualifiers: Ascites type: other type Qualified Code(s): R18.8 - Other ascites - Discharge Dispostion Condition at time of disposition: Stable - Referrals Referrals: Abebe Noriega MD [Primary Care Provider] -
[2017-06-04] MEDS ORDERED: morphine CARPU-JECT 2 MG/1 ML DISP.SYRIN IVPUSH ONE (23:26)
[2017-06-04] MEDS ORDERED: ONDANSETRON 4 MG/2 ML VIAL IVPUSH ONE (23:26)
[2017-06-04] MEDS ORDERED: morphine CARPU-JECT 4 MG/1 ML DISP.SYRIN ONE (23:40)
[2017-06-04] MEDS ORDERED: ONDANSETRON 4 MG/2 ML VIAL ONE (23:40)
[2017-06-05 00:32] LABS: BASOPHIL 1.1 % (0-2.0); MCH 24.3 pg (25.7-33.7); MCHC 30.9 g/dl (32.0-36.0); MEAN CELL VOLUME 78.8 fl (80-96); NEUTROPHILS 69.9 % (42.8-82.8); PLATELET COUNT 439 K/MM3 (134-434); RDW 18.4 % (11.6-15.6); WHITE BLOOD COUNT 7.1 K/mm3 (4.0-10.0)
[2017-06-05 00:52] LABS: INR 1.31 (0.82-1.09); PROTHROMBIN TIME (PATIENT) 14.5 SEC (9.98-11.88)
[2017-06-05 01:11] LABS: ANION GAP 9 (8-16); CO2 27 mmol/L (21-32); GLUCOSE,RANDOM 87 mg/dL (74-106)
[2017-06-05 01:17] LABS: ALK PHOS 208 U/L (45-117); BILIRUBIN,TOTAL 0.8 mg/dL (0.2-1.0); CALCIUM 8.3 mg/dL (8.5-10.1); CREATININE 0.6 mg/dL (0.55-1.02); SGPT/ALT 23 U/L (12-78); TOT PROT 6.2 g/dl (6.4-8.2); TROPONIN I 0.02 ng/ml (0.00-0.05)
[2017-06-05 01:25] LABS: CPK 51 IU/L (26-192); SGOT/AST 43 U/L (15-37)
[2017-06-05] MEDS ORDERED: VANCOMYCIN 1 GRAM (PRE-DOCKED) 1,000 MG/250 ML BAG IVPB ONE (02:10)
[2017-06-05] MEDS ORDERED: PIPERACILLIN/TAZOB 3.375 GM 3.375 GM in DEXTROSE 5%-WATER - 50 ML IVPB ONE (02:11)
[2017-06-05] MEDS ORDERED: FUROSEMIDE 40 MG/4 ML INJECTABLE VIAL IVPUSH ONE (02:19)
[2017-06-05] MEDS ORDERED: FUROSEMIDE 40 MG/4 ML INJECTABLE VIAL ONE (03:55)
[2017-06-05] MEDS ORDERED: VANCOMYCIN 1 GRAM (PRE-DOCKED) 250 ML IVPB ONE (03:55)
--- NOTE | 2017-06-05 04:10 | HP ---
CHIEF COMPLAINT: abdominal distension and leg swelling PCP: Dr. Najera Hematology: Dr. Kline Cardiology: Dr. Solis HISTORY OF PRESENT ILLNESS: This is an 86 year old female with a past medical history of myelofibrosis, MALT lymphoma (radiation interrupted), Afib, HTN, Hashimotos thyroiditis, GERD was sent to the ED from [facility] for worsening abdominal distention, abdominal pain, swelling of legs, and Hgb drop from 8.6 to 7.3. Pt reports that she feels a pinching sensation in her abdomen as well as deep pain "where the thrombus is". She also reports back pain secondary to T12 fracture sustained on 05/16/17. 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 1.5mg/kg daily PAST SURGICAL HISTORY: appendictomy B/L oopherectomy B/L cataract Social History: Smoking: pt denies Alcohol: pt denies Drugs: pt denies Family History: father age 70, ruptured cerebral aneurysm mother age 92, CVA 2 brothers mid to late 80s, dementia 1 sister mid to late 80s, HTN, CVA Allergies propoxyphene napsylate [From Darvocet-N 100] Allergy (Severe, Verified 06/04/17 21:22) Swelling aspirin Allergy (Verified 06/04/17 21:22) Difficulty Breathing HOME MEDICATIONS: 3 Medication Instructions Recorded Amlodipine Besylate [Norvasc -] 10 mg PO DAILY #0 tablet 05/13/13 Clonazepam [Klonopin] 0.5 mg PO BID 04/21/14 Ranitidine [Zantac -] 150 mg PO BID 06/10/15 Cholecalciferol (Vitamin D3) 2,000 unit PO DAILY 03/22/16 [Vitamin D3] Epoetin Chris [Procrit] 0 unit IJ ASDIR 09/11/16 Cranberry 400 mg PO DAILY 04/20/17 Pot Sor/Hy-Ethylcel/Pvp/Hyalur 15 ml MM DAILY #1 gel.packet 05/16/17 [Gelclair Oral Gel Packet] Systane Ultra 0.4-0.3% Eye Drp 1 drop TID 05/18/17 Acetaminophen [Tylenol .Regular 650 mg PO Q4H PRN #30 tablet 05/29/17 Strength -] Lactobacillus Acidophilus 1 each PO DAILY #30 capsule 05/29/17 [Acidophilus Lactobacilli] Lidocaine 5% Patch [Lidoderm -] 1 patch TP DAILY #30 patch 05/29/17 Lidocaine Patch Removal [Lidoderm 1 each MC DAILY@2200 #30 each 05/29/17 Patch Removal] Mag Hydrox/Alh/Smc/Dpha/Lido 15 ml MM Q6HPO #1 bottle 05/29/17 [Magic Mouthwash *Sjr Formula* -] Sotalol HCl [Betapace -] 40 mg PO AM #30 tablet 05/29/17 Sotalol HCl [Betapace -] 80 mg PO DAILY@1200 #30 tablet 05/29/17 Sotalol HCl [Betapace -] 120 mg PO HS #30 tablet 05/29/17 Enoxaparin [Lovenox -] 80 mg SQ DAILY #30 dis.syr 05/31/17 REVIEW OF SYSTEMS CONSTITUTIONAL: Present: generalized weakness, malaise Absent: fever, chills, diaphoresis, loss of appetite, weight change HEENT: Absent: rhinorrhea, nasal congestion, throat pain, throat swelling, difficulty swallowing, mouth swelling, ear pain, eye pain, visual changes CARDIOVASCULAR: Present: peripheral edema Absent: chest pain, syncope, palpitations, irregular heart rate, lightheadedness RESPIRATORY: Absent: cough, shortness of breath, dyspnea with exertion, orthopnea, wheezing, stridor, hemoptysis GASTROINTESTINAL: Present: abdominal pain, abdominal distension Absent: nausea, vomiting, diarrhea, constipation, melena, hematochezia GENITOURINARY: Absent: dysuria, frequency, urgency, hesitancy, hematuria, flank pain, genital pain MUSCULOSKELETAL: Absent: myalgia, arthralgia, joint swelling, back pain, neck pain SKIN: Absent: rash, itching, pallor HEMATOLOGIC/IMMUNOLOGIC: Absent: easy bleeding, easy bruising, lymphadenopathy, frequent infections ENDOCRINE: Absent: unexplained weight gain, unexplained weight loss, heat intolerance, cold intolerance NEUROLOGIC: Absent: headache, focal weakness or paresthesias, dizziness, unsteady gait, seizure, mental status changes, bladder or bowel incontinence PSYCHIATRIC: Absent: anxiety, depression, suicidal or homicidal ideation, hallucinations. PHYSICAL EXAMINATION Vital Signs - 24 hr 3 06/04/17 21:18 Temperature 98.9 F Pulse Rate 63 Respiratory 18 Rate Blood Pressure 145/52 O2 Sat by Pulse 96 Oximetry (%) GENERAL: Awake, alert, and fully oriented, in no acute distress. HEAD: Normal with no signs of trauma. EYES: Pupils equal, round and reactive to light, extraocular movements intact, sclera anicteric, conjunctiva clear. No lid lag. EARS, NOSE, THROAT: Ears normal, nares patent, oropharynx clear without exudates. Moist mucous membranes. NECK: Normal range of motion, supple without lymphadenopathy, JVD, or masses. Firm nonmobile mass noted right jawline extending from ear to neck LUNGS: Breath sounds equal. No wheezes. No accessory muscle use. diminished bilat bases, + crackles above HEART: Regular rate and rhythm, normal S1 and S2 without murmur, rub or gallop. ABDOMEN: Soft, nontender, normoactive bowel sounds, no guarding, no rebound, no masses. No hepatomegaly or splenomegaly. + mild ascites noted MUSCULOSKELETAL: Normal range of motion at all joints. No bony deformities or tenderness. No CVA tenderness. UPPER EXTREMITIES: 2+ pulses, warm, well-perfused. No cyanosis. No clubbing. No peripheral edema. LOWER EXTREMITIES: 2+ pulses, warm, well-perfused. No calf tenderness. 2+ edema B/L. NEUROLOGICAL: Cranial nerves II-XII intact. Normal speech. Normal gait. PSYCHIATRIC: Cooperative. Good eye contact. Appropriate mood and affect. SKIN: Warm, dry, normal turgor, no rashes or lesions noted, normal capillary refill. Laboratory Results - last 24 hr 3 06/04/17 06/04/17 06/04/17 23:30 23:30 23:30 WBC 7.1 RBC 3.16 L Hgb 7.7 L D Hct 24.9 L MCV 78.8 L MCH 24.3 L MCHC 30.9 L RDW 18.4 H Plt Count 439 H D MPV 9.0 Neutrophils % 69.9 Lymphocytes % 13.0 D Monocytes % 13.0 H Eosinophils % 3.0 Basophils % 1.1 INR 1.31 H Sodium 135 L Potassium 4.5 Chloride 99 Carbon Dioxide 27 Anion Gap 9 BUN 13 Creatinine 0.6 Creat Clearance w eGFR > 60 Random Glucose 87 Lactic Acid 0.8 Calcium 8.3 L Magnesium 2.0 Total Bilirubin 0.8 AST 43 H D ALT 23 Alkaline Phosphatase 208 H Creatine Kinase 51 Troponin I 0.02 B-Natriuretic Peptide 8496.96 H Total Protein 6.2 L Albumin 3.0 L Lipase 279 Anti-A Titer Blood Type Antibody Screen Spec Expiration Date ECG Sinus bradycardia with PVC Left axis Possible anterior infarct, age undetermined when compared with ECG 05/16/17, new T wave inversionsin lead V3-V6 Radiology Results EXAM: CT abdomen and pelvis without contrast IMAGES: 490 INDICATION: Pain. Rule out colitis. DATE OF SERVICE: 2017-06-05 01:15:43.0 COMPARISON: 05/21/17 THIS IS A PRELIMINARYREPORT FROM IMAGING COMPUTER LANGUAGE CODER FINDINGS: Mild increase in the moderate-sized bilateral pleural effusions with compressive atelectasis and/or pneumonia. The heart is enlarged. Again noted is splenomegaly, and multiple peripheral regions of low attenuation. Although evaluation is limited without contrast on the very suspicious for multiple splenic infarcts. Normal unenhanced liver, gallbladder, pancreas, adrenal glands and kidneys. The stomach and abdominal small and large bowel are normal. There is no aortic aneurysm. There is no significant retroperitoneal lymphadenopathy. There is a slight increase in small amount of ascites. No change in retroperitoneal mesenteric adenopathy The pelvic small and large bowel are normal. There is no evidence of appendicitis. The uterus and adnexal structures are normal. Urinary bladder is unremarkable. No discrete pelvic lymphadenopathy is identified. No suspicious bone lesions. She subcutis edema could represent anasarca. Findings discussed with Dr. Rios at 2:03 AM. 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 Splenomegaly is unchanged. Resolution of prior colitis. Mild worsening of moderate-sized bilateral pleural effusions with compressive atelectasis and/or pneumonia. Slight increase in small amount of ascites. Possible anasarca. THIS DOCUMENT HAS BEEN ELECTRONICALLY SIGNED Tyler Pereira MD 06/05/2017 02: 08 EST ASSESSMENT/PLAN: 86yF with myelofibrosis with anemia, afib, HTN, Tucker's thyroiditis, GERD, lymphoma previously on RT, portal vein thrombus presented to the ED from [facility] with increased fatigue, Hgb 7.3, edema, and increased abdominal distention. B/L Pleural effusions and periph edema/anasarca - start lasix 40mg IVP daily - ? due to progression of portal vein thrombosis Pneumonia - ? infiltrate on CT scan will start vanc and zosyn given current residence in [facility] and recent hospitalization - ID consult - consider CT chest myelofibrosis/anemia/thrombocytosis - Platelet count 439, no indication to restart hydroxyurea - repeat Hgb 7.6, defer transfusion now, will leave to hematology to decide, type and cross in AM Portal vein thrombus - cont lovenox 80mg daily Afib - cont sotalol, rate well controlled - cont lovenox Tucker's thyroiditis - check TSH GERD - cont zantac BID DVT PPX - already on lovenox FEN - defer IVF given edema/ascites - BMP in am, monitor K on lasix - low sodium diet as tolerated Pt is DNR Dispo: Pt currently requires inpatient management of her emergent condition. Visit type - Emergency Visit Emergency Visit: Yes ED Registration Date: 06/04/17 Care time: The patient presented to the Emergency Department on the above date and was hospitalized for further evaluation of their emergent condition. - New Patient This patient is new to me today: Yes Date on this admission: 06/05/17 - Critical Care Critical Care patient: No
[2017-06-05] MEDS: SOTALOL HCL 80 MG TABLET (FP) PO SCH ×3 (06:09→22:52)
[2017-06-05] MEDS: MAG HYDROX/ALH/SMC/DPHA/LIDO 240 ML MOUTHWASH MM SCH ×3 (06:26→17:04)
[2017-06-05] MEDS: ARTIFICIAL TEARS (POLYVINYL ALCOHOL 1.4%) OPTH DROPS OU SCH ×3 (06:26→21:33)
[2017-06-05] MEDS ORDERED: PIPERACILLIN/TAZOB 3.375 GM 50 ML IVPB ONE (06:30)
[2017-06-05 07:25] VITALS: BMI 26.8
[2017-06-05 08:44] LABS: EOSINOPHIL 3.4 % (0-4.5); MCH 24.7 pg (25.7-33.7); MCHC 31.8 g/dl (32.0-36.0); MEAN CELL VOLUME 77.8 fl (80-96); MEAN PLT VOLUME 8.6 fl (7.5-11.1); NEUTROPHILS 71.7 % (42.8-82.8); RDW 18.7 % (11.6-15.6)
[2017-06-05 09:10] LABS: ANION GAP 4 (8-16); CALCIUM 8.6 mg/dL (8.5-10.1); CO2 32 mmol/L (21-32); GLUCOSE,RANDOM 85 mg/dL (74-106); MAGNESIUM 1.9 mg/dL (1.8-2.4)
[2017-06-05 09:13] LABS: CREATININE 0.7 mg/dL (0.55-1.02); PHOSPHOROUS 3.2 mg/dL (2.5-4.9)
[2017-06-05] MEDS: LACTOBACILLUS ACIDOPHILUS 1 EACH TAB (FP) PO SCH (09:15)
[2017-06-05] MEDS: CHOLECALCIFEROL (VITAMIN D3) 1,000 UNIT TABLET (FP) PO SCH (09:15)
[2017-06-05] MEDS: clonazePAM 0.5 MG TABLET PO SCH ×2 (09:15→21:24)
[2017-06-05] MEDS: amLODIPine BESYLATE 10 MG TABLET (FP) PO SCH (09:15)
[2017-06-05] MEDS: LIDOCAINE 5% TOPICAL PATCH TP SCH (09:15)
[2017-06-05] MEDS: RANITIDINE HCL 150 MG TABLET (FP) PO SCH ×2 (09:15→21:24)
[2017-06-05 09:27] LABS: PLATELET COUNT 266 K/MM3 (134-434); PLATELET ESTIMATE ADEQUATE (NORMAL)
[2017-06-05] MEDS ORDERED: ENOXAPARIN NA (PORCINE) 80 MG/0.8 ML DISP.SYRIN SQ SCH (10:00)
[2017-06-05] MEDS ORDERED: FUROSEMIDE 40 MG/4 ML INJECTABLE VIAL IVPUSH SCH (10:00)
[2017-06-05] MEDS ORDERED: CRANBERRY 400 MG PO SCH (10:00)
[2017-06-05] MEDS ORDERED: [UNRECOGNIZED DRUG - MIXTURE] MM SCH (10:00)
[2017-06-05] MEDS ORDERED: ENOXAPARIN NA (PORCINE) 80 MG/0.8 ML DISP.SYRIN SQ ONE (11:15)
--- NOTE | 2017-06-05 12:55 | PN ---
Progress Note (short form) - Note Progress Note: ID consult dictated imp/reccd 86 year old female just discharged from [facility] 5 days ago to SNF with weakness , anemia and lower extremity swelling Know parotid MALToma, recent fall with acute vertebral compression fracture and recent bout of ischemic colitis known portal vein thrombosis on lovenox suspect sob due to worsening effusions doubt clinical pneumonia- no fevers or leukocytosis she is quite alert would not treat for pneumonia at this time worsening edema is concerning and needs to be addressed- she has gained 13 pounds since last documented weight in May! d/w patient and family at bedside
[2017-06-05] MEDS: HYDROXYUREA 500 MG CAPSULE PO SCH ×2 (13:07→17:05)
[2017-06-05] MEDS: ACETAMINOPHEN 325 MG TABLET (FP) PO PRN (13:08)
--- NOTE | 2017-06-05 13:20 | EKG ---
Test Reason : Blood Pressure : / mmHG Vent. Rate : 059 BPM Atrial Rate : 059 BPM P-R Int : 196 ms QRS Dur : 086 ms QT Int : 472 ms P-R-T Axes : 039 -34 -44 degrees QTc Int : 467 ms SINUS BRADYCARDIA WITH PREMATURE ATRIAL COMPLEXES WITH ABERRANT CONDUCTION LEFT AXIS DEVIATION POSSIBLE ANTERIOR INFARCT (CITED ON OR BEFORE 16-MAY-2017) ABNORMAL ECG WHEN COMPARED WITH ECG OF 16-MAY-2017 18:34, ABERRANT CONDUCTION IS NOW PRESENT INVERTED T WAVES HAVE REPLACED NONSPECIFIC T WAVE ABNORMALITY IN INFERIOR LEADS INVERTED T WAVES HAVE REPLACED NONSPECIFIC T WAVE ABNORMALITY IN ANTERIOR LEADS Confirmed by EVAN PIERSON, DALE ([id number]) on 06/05/2017 1:20:01 PM Referred By: Confirmed By:DALE GORDON MD
[2017-06-05] MEDS: FUROSEMIDE 40 MG/4 ML INJECTABLE VIAL IVPUSH SCH (14:55)
--- NOTE | 2017-06-05 16:09 | CONS ---
DATE OF CONSULTATION: REQUESTING PHYSICIAN: Hospitalist service HISTORY: This is an 86-year-old woman who was just discharged 5 days ago from [facility] where she originally presented. She was discharged on the after she was hospitalized for 2 weeks after she presented after a fall. She has a history of a parotid MALToma and tripped and fell and was brought to the emergency room. She had a prolonged admission. She was found to have a T12 compression fracture. She developed constipation and ischemic colitis, which was treated conservatively with IV fluids and IV antibiotics with improvement. As well, she had a nonportal vein thrombosis that was noted to be enlarged, and she was switched to Lovenox at the time of discharge. She went to an SNF upon discharge on the and was readmitted with generalized weakness, swelling of her legs, abdominal distention. There was no fevers or chills. Question of pneumonia was raised. She was given vancomycin and Zosyn. We were asked to see her. The patient is awake and alert. She denies any fevers. She has not had any nausea and vomiting. Overall, she feels like her legs are quite swollen. Her abdomen is distended. She denies diarrhea. She has had bowel movements in the snf. She denies cough. PAST MEDICAL HISTORY: Notable for myelofibrosis. 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 PAST SURGICAL HISTORY: Notable for an appendectomy in the past. FAMILY HISTORY: Noncontributory. ALLERGIES: PROPOXYPHENE and ASPIRIN. MEDICATIONS: At the time of admission included amlodipine, clonazepam, ranitidine, vitamin D, Procrit, Orajel Plaque, Systane eye drops, Acidophilus, lidocaine patch, sotalol, and enoxaparin. SOCIAL HISTORY: She is currently residing at the snf. She has been using a walker and has been able to get up and use a commode. She continues to have back pain. She notes she is having some abdominal discomfort at this point but nothing like the episode of ischemic colitis in the past. PHYSICAL EXAMINATION: General: She is awake and alert. Vital Signs: She weighs 137 pounds. Her weight on her last admission was 124. Temperature 98.1, blood pressure 136/60, respiratory rate 18. HEENT: She is normocephalic. Her eyes are anicteric. She has no thrush. Lungs: Bilateral basilar crackles. She has diminished breath sounds at both bases. Heart: Regular rate and rhythm. Abdomen: Slightly distended. It is soft. She has bowel sounds. There is no rebound or guarding. Extremities: Notable for pitting edema extending up into her upper thighs. LABORATORIES: Notable for white count 7, hemoglobin 8.6, platelets 266, BUN 10, creatinine 0.7, TSH 5.7. Her cultures are pending. Looking at her films of her chest CT, abdomen, and pelvis, she has evidence of worsening bilateral effusions with compressive atelectasis. In summary, this is an 86-year-old woman who is admitted for worsening edema. I suspect her shortness of breath is due to the worsening effusion. I doubt she has clinical pneumonia. I would not treat her for pneumonia at this time. She has gained about 13 pounds, and this needs to be addressed. All of this was discussed with her family at the bedside. Would observe at this time off antibiotics. MAXI ARROYO M.D. [id number]
--- NOTE | 2017-06-05 18:05 | PN ---
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 CT chest/abdomen/pelvis reviewed. She feels better than she came. She did not like the rehab center. She said she was doing OK with the therapy at the rehab, but she couldn't take the swelling in her legs and she does have abdominal pain. She feels OK. She denies any fevers, shortness of breath or chest pain. No bleeding noted. O/E: General: In NAD HEENT: NC AT Cardiac: RRR Lungs: Decreased breath sounds bilaterally Abdomen: mildly distended, no tenderness noted LE: 2+ edema ( better than last week) Last Vital Signs Temp Pulse Resp BP Pulse Ox 97.5 F L 67 18 104/53 92 L 06/05/17 14:48 06/05/17 14:48 06/05/17 14:48 06/05/17 14:48 06/05/17 08:00 CBC, BMP 06/05/17 08:05 06/05/17 08:05 Current Medications Generic Name Dose Route Start Last Admin Trade Name Freq PRN Reason Stop Dose Admin Acetaminophen 650 mg 06/05/17 02:25 06/05/17 13:08 Tylenol - PO 650 mg Q4H PRN Administration FEVER OR PAIN Amlodipine Besylate 10 mg 06/05/17 10:00 06/05/17 09:15 Norvasc - PO 10 mg DAILY MARGARITA Administration Artificial Tears 1 drop 06/05/17 06:00 06/05/17 14:55 Artificial Tears OU 1 drop TID MARGARITA Administration Cholecalciferol 2,000 unit 06/05/17 10:00 06/05/17 09:15 Vitamin D3 - PO 2,000 unit DAILY MARGARITA Administration Clonazepam 0.5 mg 06/05/17 10:00 06/05/17 09:15 Klonopin - PO 0.5 mg BID MARGARITA Administration Enoxaparin Sodium 60 mg 06/06/17 10:00 Lovenox - SQ BID MARGARITA Furosemide 40 mg 06/05/17 14:00 06/05/17 14:55 Lasix Injection - IVPUSH 40 mg BIDLASIX MARGARITA Administration Hydroxyurea 500 mg 06/05/17 10:00 06/05/17 17:05 Hydrea - PO 500 mg DAILY MARGARITA Administration Lactobacillus Acidophilus 1 tab 06/05/17 10:00 06/05/17 09:15 Bacid - PO 1 tab DAILY MARGARITA Administration Lidocaine 1 patch 06/05/17 10:00 06/05/17 09:15 Lidoderm Patch - TP 1 patch DAILY MARGARITA Administration Lidocaine/Aluminum/Magnesium/Simeth 15 ml 06/05/17 06:00 06/05/17 17:04 Magic Mouthwash *Sjr Formula* - MM 15 ml Q6HPO MARGARITA Administration Miscellaneous 1 each 06/05/17 22:00 Lidoderm Patch Removal MC DAILY@2200 MARGARITA Non-Formulary Medication 15 ml 06/05/17 10:00 Pot Sor/Hy-Ethylcel/Pvp/Hyalur [Gelclair Oral Gel Packet] MM DAILY MARGARITA Ranitidine HCl 150 mg 06/05/17 10:00 06/05/17 09:15 Zantac - PO 150 mg BID MARGARITA Administration Sotalol HCl 40 mg 06/05/17 07:00 06/05/17 06:09 Betapace - PO 40 mg AM MARGARITA Administration Sotalol HCl 80 mg 06/05/17 12:00 06/05/17 13:07 Betapace - PO Not Given DAILY@1200 MARGARITA Sotalol HCl 120 mg 06/05/17 22:00 Betapace - PO HS MARGARITA Assessment/Plan: is well known to our service, with 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 CT chest/abdomen/pelvis reviewed. Anasarca/LE edema/Bilateral Pleural effusions: -?CHF -Improving significantly on IV diuretics. -Cardiology was consulted. Portal vein thrombosis: -from her underlying thrombogenic diathesis ( MPD ) -patient was discharged on Lovenox 80mg daily, will change to lovenox 60mg bid ( 1mg/kg/day bid) -pt with new splenic infarcts as was compared to CT scan 05/2017. We would consider adding aspirin 81mg, but she says she is allergic to aspirin. PMF from ET: -re-start Hydrea 500mg daily -splenomegaly from PMF. MALToma ( parotid) -will need to resume RT at some point Iron Overload: -confirmed from MRI -?out patient chelation Paroxysmal AC: -on systemic a/c d./w Patient's family. On discharge pt does not want to go back to the same Rehab center.
--- NOTE | 2017-06-05 20:30 | CONS ---
DATE OF CONSULTATION: 06/05/2017 HISTORY OF PRESENT ILLNESS: The patient is well known to my service. She is an 86-year-old female who was recently transferred from [facility] for rehabilitation. She has longstanding history of hypertension, Tucker thyroiditis, history of mitral valve prolapse, paroxysmal atrial fibrillation, history of myelodysplastic syndrome, essential thrombocytosis, history of lymphoma, and gastroesophageal reflux disease. On her last hospitalization, she was found to have an enlarging portal vein thrombus with probably portal hypertension while she was on therapeutic doses of Coumadin. She was switched over to Lovenox and was readmitted with history of generalized weakness and lethargy, and was found to have progressive anemia. She denies chest pain or discomfort either at rest or with exertion. No exertional dyspnea, paroxysmal nocturnal dyspnea, or orthopnea. She has had abdominal distention and discomfort and also was experiencing pedal edema. CURRENT MEDICATIONS: 1. Hydroxyurea 500 mg p.o. daily. 2. Lovenox 50 mg subcutaneous daily. 3. Lidoderm patch, 1 daily. 4. Klonopin 0.5 mg b.i.d. 5. Sotalol 40 mg p.o. in a.m., 80 mg at 12 noon, and 120 mg at bedtime. 6. Amlodipine 10 mg p.o. daily. 7. Zantac 150 mg p.o. daily. 8. Vitamin D3 2000 international units p.o. daily. 9. Artificial tears. PHYSICAL EXAMINATION: General: An 86-year-old alert female complaining of weakness . No cyanosis, clubbing, or jaundice. Vital signs: Blood pressure 104/53 mmHg. Pulse 67 beats per minute and regular. Respirations 18 per minute. Weight 37.6 pounds. Neck: Supple. No jugulovenous distention, carotids were equal, hepatojugular reflex was negative, no bruits were heard, and there was no thyromegaly. Heart: PMI was in the 5th intercostal space, no heaves or thrills. S1 and S2 were normal. Nonejection systolic click was heard along the left sternal border. Grade 1/6 apical systolic murmur. No diastolic murmur or gallops were heard. Lungs: Slightly decreased breath sounds at the left base. Otherwise clear. Abdomen: Slightly protuberant, mild right upper quadrant guarding and tenderness, no hepatosplenomegaly was appreciated. There was slight dullness in both flanks on percussion. Bowel sounds were active, no bruits were heard. Extremities: 1+ bilateral pitting edema. No calf tenderness was elicited. LABORATORY DATA: CBC, June 04, 2017: Hemoglobin was 7.7 g, platelet count was elevated at 439,000. Repeat CBC revealed a hemoglobin of 8.6 g, platelet count of 266,000. Differential revealed elevated monocytes. Chemistry, June 05, 2017: Sodium 136, potassium 4.1, chloride 100, CO2 of 32, BUN 10, creatinine 0.7 mg/dL. Slightly elevated AST and alkaline phosphatase on June 04, 2017. TSH was elevated at 5.72. Chest CT, impression: 1. Small to moderate right-sided and small left-sided pleural effusion which appears to be mildly increased in size in comparison to abdominal CT study of May 21, 2017. Bilateral bibasilar opacities are seen probably representing compression atelectasis without definite interval change. 2. Cardiomegaly. 3. Bilateral flank subcutaneous edema as on prior examination. 4. Partially imaged spleen demonstrates interval development of several infarcts in comparison to May 21, 2017, abdominal CT. Portal vein thrombus was described on contrast enhanced MRI performed on May 30, 2017. The spleen is enlarged, as on prior studies. A small amount of perihepatic ascites is again noted. IMPRESSION: 1. Hypertension, hypertensive cardiovascular disease, currently normotensive. 2. Paroxysmal atrial fibrillation, currently in sinus rhythm. 3. History of mitral valve prolapse. 4. Essential thrombocytosis. 5. Portal vein thrombus with recent splenic infarcts. 6. Anemia. 7. Myelodysplastic syndrome. 8. History of lymphoma. 9. History of depression, currently in remission. 10. Fatigue, most likely related to anemia. RECOMMENDATION: 1. Continue current cardiac medications. 2. Follow up CBC. 3. Consider evaluation by interventional radiologist regarding portal vein thrombus which now has started to embolize. Further suggestions as necessary. SHAKIR GAUTAM M.D. SHAHBAZ/[id number]
[2017-06-05] MEDS: LIDOCAINE PATCH REMOVAL MC SCH (21:35)
[2017-06-06] MEDS: ARTIFICIAL TEARS (POLYVINYL ALCOHOL 1.4%) OPTH DROPS OU SCH ×3 (05:35→21:25)
[2017-06-06] MEDS: MAG HYDROX/ALH/SMC/DPHA/LIDO 240 ML MOUTHWASH MM SCH ×4 (05:37→17:48)
[2017-06-06] MEDS: FUROSEMIDE 40 MG/4 ML INJECTABLE VIAL IVPUSH SCH ×2 (05:38→15:00)
[2017-06-06] MEDS: SOTALOL HCL 80 MG TABLET (FP) PO SCH ×3 (06:34→21:21)
--- NOTE | 2017-06-06 07:22 | PN ---
Physical Exam: SUBJECTIVE: Patient seen and examined oob to chair. Still fatigued. Pain to RUQ and RLQ. Concerned about abdominal distension. OBJECTIVE: Vital Signs Period Temp Pulse Resp BP Sys/Conde Pulse Ox Last 24 Hr 97.5 F-99.7 F 59-67 16-18 104-143/51-74 92-100 GENERAL: Awake, alert, and fully oriented, in no acute distress. Thin, frail. HEAD: Normal with no signs of trauma. EYES: Pupils equal, round and reactive to light, extraocular movements intact, sclera anicteric, conjunctiva clear. No ptosis. EARS, NOSE, THROAT: Ears normal, nares patent, oropharynx clear without exudates. Moist mucous membranes. NECK: Normal range of motion, supple without lymphadenopathy, JVD, or masses. Firm nonmobile mass noted right jawline extending from ear to neck LUNGS: Breath sounds equal. No wheezes. No accessory muscle use. diminished bilat bases, + crackles above HEART: Regular rate and rhythm, normal S1 and S2 without murmur, rub or gallop. ABDOMEN: Soft, not tender, distended, tympanic. MUSCULOSKELETAL: Normal range of motion at all joints. No bony deformities or tenderness. No CVA tenderness. UPPER EXTREMITIES: 2+ pulses, warm, well-perfused. No cyanosis. No clubbing. No peripheral edema. LOWER EXTREMITIES: 2+ pulses, warm, well-perfused. No calf tenderness. Edema almost completely resolved. Trace pedal edema. NEUROLOGICAL: Cranial nerves II-XII intact. Normal speech. Normal gait. Laboratory Results - last 24 hr 06/05/17 06/05/17 06/05/17 08:05 08:05 08:05 WBC 7.0 RBC 3.46 L Hgb 8.6 L D Hct 26.9 L MCV 77.8 L MCH 24.7 L MCHC 31.8 L RDW 18.7 H Plt Count 266 D MPV 8.6 Neutrophils % 71.7 Lymphocytes % 10.5 Monocytes % 13.4 H Eosinophils % 3.4 Basophils % 1.0 Platelet Estimate Adequate Platelet Comment No clumping noted RBC Morphology Sodium 136 Potassium 4.1 Chloride 100 Carbon Dioxide 32 Anion Gap 4 L BUN 10 D Creatinine 0.7 Random Glucose 85 Calcium 8.6 Phosphorus 3.2 D Magnesium 1.9 TSH Blood Type AB POSITIVE Antibody Screen Negative 06/05/17 08:05 WBC RBC Hgb Hct MCV MCH MCHC RDW Plt Count MPV Neutrophils % Lymphocytes % Monocytes % Eosinophils % Basophils % Platelet Estimate Platelet Comment RBC Morphology Sodium Potassium Chloride Carbon Dioxide Anion Gap BUN Creatinine Random Glucose Calcium Phosphorus Magnesium TSH 5.72 H D Blood Type Antibody Screen Active Medications Generic Name Dose Route Start Last Admin Trade Name Freq PRN Reason Stop Dose Admin Acetaminophen 650 mg 06/05/17 02:25 06/05/17 13:08 Tylenol - PO 650 mg Q4H PRN Administration FEVER OR PAIN Amlodipine Besylate 10 mg 06/05/17 10:00 06/05/17 09:15 Norvasc - PO 10 mg DAILY MARGARITA Administration Artificial Tears 1 drop 06/05/17 06:00 06/06/17 05:35 Artificial Tears OU 1 drop TID MARGARITA Administration Cholecalciferol 2,000 unit 06/05/17 10:00 06/05/17 09:15 Vitamin D3 - PO 2,000 unit DAILY MARGARITA Administration Clonazepam 0.5 mg 06/05/17 10:00 06/05/17 21:24 Klonopin - PO 0.5 mg BID MARGARITA Administration Enoxaparin Sodium 60 mg 06/06/17 10:00 Lovenox - SQ BID MARGARITA Furosemide 40 mg 06/05/17 14:00 06/06/17 05:38 Lasix Injection - IVPUSH 40 mg BIDLASIX MARGARITA Administration Hydroxyurea 500 mg 06/05/17 10:00 06/05/17 17:05 Hydrea - PO 500 mg DAILY MARGARITA Administration Lactobacillus Acidophilus 1 tab 06/05/17 10:00 06/05/17 09:15 Bacid - PO 1 tab DAILY MARGARITA Administration Lidocaine 1 patch 06/05/17 10:00 06/05/17 09:15 Lidoderm Patch - TP 1 patch DAILY MARGARITA Administration Lidocaine/Aluminum/Magnesium/Simeth 15 ml 06/05/17 06:00 06/06/17 05:37 Magic Mouthwash *Sjr Formula* - MM 15 ml Q6HPO MARGARITA Administration Miscellaneous 1 each 06/05/17 22:00 06/05/17 21:35 Lidoderm Patch Removal MC Not Given DAILY@2200 MARGARITA Non-Formulary Medication 15 ml 06/05/17 10:00 Pot Sor/Hy-Ethylcel/Pvp/Hyalur [Gelclair Oral Gel Packet] MM DAILY MARGARITA Ranitidine HCl 150 mg 06/05/17 10:00 06/05/17 21:24 Zantac - PO 150 mg BID MARGARITA Administration Sotalol HCl 40 mg 06/05/17 07:00 06/06/17 06:34 Betapace - PO 40 mg AM MARGARITA Administration Sotalol HCl 80 mg 06/05/17 12:00 06/05/17 13:07 Betapace - PO Not Given DAILY@1200 MARGARITA Sotalol HCl 120 mg 06/05/17 22:00 06/05/17 22:52 Betapace - PO 120 mg HS MARGARITA Administration ASSESSMENT/PLAN 86 year-old female with a PMH significant for HTN, 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 Admitted for symptomatic anemia, bilateral pleural effusions, ascites, and bilateral lower extremity edema. Acute on chronic diastolic heart failure --05/23/17 Echo: LV function low normal, no RWMA; RV normal; LAE; trace TR; trace AI; trace PI --bilateral pleural effusions on imaging --severe bilateral lower extremity edema on admission, much improved after aggressive diuresis, down 17 lbs in 48 hours --BNP >8,000 --renal function remains stable, continue IV Lasix, r/o pneumonia --afebrile, no leukocytosis --unlikely this is clinical pneumonia --observe off antibiotics Myelofibrosis Essential thrombocytopenia MALT lymphoma Anemia --hydroxyurea restarted --Hgb 7.0 today; discussed with Dr. Grove, hold transfusion for now due iron overload in liver and possibly heart; repeat cbc 6:00pm --keep type and cross current Portal vein thrombus --mild ascites --continue lovenox at loser dose Splenic infarcts --seen on CT imaging --possible emboli from portal vein thrombus --heme would like to start ASA but patient states she has allergy and does not want to risk an allergic reaction Atrial fibrillation --rate well-controlled, continue sotalol --continue full dose lovenox Tucker's thyroiditis --TSH high, free T4 wnl GERD --continue zantac BID T12 compression fracture --lidocaine patch FEN Fluids: PO intake adequate Electrolytes: replete as indicated Nutrition: sodium-controlled diet DVT prophylaxis: on full dose lovenox Dispo: Continues to require inpatient care. Full Code. Visit type - Emergency Visit Emergency Visit: Yes ED Registration Date: 06/05/17 Care time: The patient presented to the Emergency Department on the above date and was hospitalized for further evaluation of their emergent condition. - New Patient This patient is new to me today: Yes Date on this admission: 06/06/17 - Critical Care Critical Care patient: No
[2017-06-06 07:45] LABS: MCH 24.8 pg (25.7-33.7); MCHC 32.4 g/dl (32.0-36.0); MEAN CELL VOLUME 76.6 fl (80-96); MEAN PLT VOLUME 8.3 fl (7.5-11.1); PLATELET COUNT 323 K/MM3 (134-434); RDW 18.1 % (11.6-15.6)
[2017-06-06 07:51] LABS: INR 1.27 (0.82-1.09)
[2017-06-06 08:10] LABS: ALBUMIN 2.7 g/dl (3.4-5.0); ANION GAP 7 (8-16); BILIRUBIN,TOTAL 0.6 mg/dL (0.2-1.0); CALCIUM 8.1 mg/dL (8.5-10.1); CO2 31 mmol/L (21-32); CREATININE 0.8 mg/dL (0.55-1.02); GLUCOSE,RANDOM 87 mg/dL (74-106); SGOT/AST 24 U/L (15-37); SGPT/ALT 21 U/L (12-78); TOT PROT 5.7 g/dl (6.4-8.2)
[2017-06-06 08:11] LABS: ALK PHOS 171 U/L (45-117)
[2017-06-06] MEDS: LIDOCAINE 5% TOPICAL PATCH TP SCH (10:15)
[2017-06-06] MEDS: amLODIPine BESYLATE 10 MG TABLET (FP) PO SCH (10:16)
[2017-06-06] MEDS: CHOLECALCIFEROL (VITAMIN D3) 1,000 UNIT TABLET (FP) PO SCH (10:16)
[2017-06-06] MEDS: RANITIDINE HCL 150 MG TABLET (FP) PO SCH ×3 (10:16→22:01)
[2017-06-06] MEDS: HYDROXYUREA 500 MG CAPSULE PO SCH (10:16)
[2017-06-06] MEDS: LACTOBACILLUS ACIDOPHILUS 1 EACH TAB (FP) PO SCH (10:16)
[2017-06-06] MEDS: clonazePAM 0.5 MG TABLET PO SCH ×2 (10:24→21:22)
--- NOTE | 2017-06-06 10:44 | EKG ---
Test Reason : Blood Pressure : / mmHG Vent. Rate : 062 BPM Atrial Rate : 062 BPM P-R Int : 188 ms QRS Dur : 084 ms QT Int : 480 ms P-R-T Axes : 024 -34 -29 degrees QTc Int : 487 ms SINUS RHYTHM WITH FREQUENT PREMATURE VENTRICULAR COMPLEXES LEFT AXIS DEVIATION T WAVE ABNORMALITY, CONSIDER ANTERIOR ISCHEMIA PROLONGED QT ABNORMAL ECG WHEN COMPARED WITH ECG OF 05-JUN-2017 00:30, PREMATURE VENTRICULAR COMPLEXES ARE NOW PRESENT ABERRANT CONDUCTION IS NO LONGER PRESENT Confirmed by HOWARD NUNO MD ([id number]) on 06/06/2017 10:43:41 AM Referred By: STEVE NOEL Confirmed By:HOWARD NUNO MD
[2017-06-06] MEDS: ENOXAPARIN NA (PORCINE) 60 MG/0.6 ML DISP.SYRIN SQ SCH ×2 (12:06→21:26)
--- NOTE | 2017-06-06 16:14 | PN ---
Progress Note (short form) - Note Progress Note: Patient seen and examined. She feels OK. Still with some discomfort in the abdomen. Normal regular Bowel movement O/E: General: In NAD HEENT: NC AT Cardiac: RRR Lungs: Decreased breath sounds bilaterally Abdomen: mildly distended, no tenderness noted LE: edema getting better. Last Vital Signs Temp Pulse Resp BP Pulse Ox 98.2 F 58 L 18 111/48 100 06/06/17 14:00 06/06/17 14:00 06/06/17 14:00 06/06/17 14:00 06/05/17 20:17 CBC, BMP 06/06/17 05:35 06/06/17 05:35 INR, PTT INR 1.27 (0.82-1.09) H 06/06/17 05:35 Current Medications Generic Name Dose Route Start Last Admin Trade Name Freq PRN Reason Stop Dose Admin Acetaminophen 650 mg 06/05/17 02:25 06/05/17 13:08 Tylenol - PO 650 mg Q4H PRN Administration FEVER OR PAIN Amlodipine Besylate 10 mg 06/05/17 10:00 06/05/17 09:15 Norvasc - PO 10 mg DAILY MARGARITA Administration Artificial Tears 1 drop 06/05/17 06:00 06/05/17 14:55 Artificial Tears OU 1 drop TID MARGARITA Administration Cholecalciferol 2,000 unit 06/05/17 10:00 06/05/17 09:15 Vitamin D3 - PO 2,000 unit DAILY MARGARITA Administration Clonazepam 0.5 mg 06/05/17 10:00 06/05/17 09:15 Klonopin - PO 0.5 mg BID MARGARITA Administration Enoxaparin Sodium 60 mg 06/06/17 10:00 Lovenox - SQ BID MARGARITA Furosemide 40 mg 06/05/17 14:00 06/05/17 14:55 Lasix Injection - IVPUSH 40 mg BIDLASIX MARGARITA Administration Hydroxyurea 500 mg 06/05/17 10:00 06/05/17 17:05 Hydrea - PO 500 mg DAILY MARGARITA Administration Lactobacillus Acidophilus 1 tab 06/05/17 10:00 06/05/17 09:15 Bacid - PO 1 tab DAILY MARGARITA Administration Lidocaine 1 patch 06/05/17 10:00 06/05/17 09:15 Lidoderm Patch - TP 1 patch DAILY MARGARITA Administration Lidocaine/Aluminum/Magnesium/Simeth 15 ml 06/05/17 06:00 06/05/17 17:04 Magic Mouthwash *Sjr Formula* - MM 15 ml Q6HPO MARGARITA Administration Miscellaneous 1 each 06/05/17 22:00 Lidoderm Patch Removal MC DAILY@2200 MARGARITA Non-Formulary Medication 15 ml 06/05/17 10:00 Pot Sor/Hy-Ethylcel/Pvp/Hyalur [Gelclair Oral Gel Packet] MM DAILY MARGARITA Ranitidine HCl 150 mg 06/05/17 10:00 06/05/17 09:15 Zantac - PO 150 mg BID MARGARITA Administration Sotalol HCl 40 mg 06/05/17 07:00 06/05/17 06:09 Betapace - PO 40 mg AM MARGARITA Administration Sotalol HCl 80 mg 06/05/17 12:00 06/05/17 13:07 Betapace - PO Not Given DAILY@1200 MARGARITA Sotalol HCl 120 mg 06/05/17 22:00 Betapace - PO HS [facility] Assessment/Plan: is well known to our service, with 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 CT chest/abdomen/pelvis reviewed. Anasarca/LE edema/Bilateral Pleural effusions: -?CHF -Improving significantly on IV diuretics. -Cardiology f/u noted Portal vein thrombosis: -on therapeutic lovenox. -pt with new splenic infarcts as was compared to CT scan 05/2017. -IR consulted as per recommendations of PMF from ET: -c/w Hydrea 500mg daily -splenomegaly from PMF. -will hold off on transfusion today, denies any bleeding, will repeat CBC to assess if needed transfusion. MALToma ( parotid) -will need to resume RT at some point Iron Overload: -confirmed from MRI -?out patient chelation Paroxysmal AC: -on systemic a/c
[2017-06-06] MEDS: ACETAMINOPHEN 325 MG TABLET (FP) PO PRN (17:47)
[2017-06-06 18:33] LABS: BASOPHIL 2.8 % (0-2.0); EOSINOPHIL 3.3 % (0-4.5); MCH 24.2 pg (25.7-33.7); MCHC 30.9 g/dl (32.0-36.0); MEAN CELL VOLUME 78.1 fl (80-96); MEAN PLT VOLUME 8.3 fl (7.5-11.1); NEUTROPHILS 69.8 % (42.8-82.8); PLATELET COUNT 392 K/MM3 (134-434)
[2017-06-06] MEDS: LIDOCAINE PATCH REMOVAL MC SCH (21:37)
[2017-06-07] MEDS: MAG HYDROX/ALH/SMC/DPHA/LIDO 240 ML MOUTHWASH MM SCH ×5 (00:34→23:19)
[2017-06-07] MEDS: ARTIFICIAL TEARS (POLYVINYL ALCOHOL 1.4%) OPTH DROPS OU SCH ×3 (06:34→21:01)
[2017-06-07] MEDS: SOTALOL HCL 80 MG TABLET (FP) PO SCH ×3 (06:35→21:01)
[2017-06-07] MEDS: FUROSEMIDE 40 MG/4 ML INJECTABLE VIAL IVPUSH SCH ×2 (06:35→15:01)
--- NOTE | 2017-06-07 07:33 | PN ---
Physical Exam: SUBJECTIVE: Patient seen and examined OBJECTIVE: Vital Signs Period Temp Pulse Resp BP Sys/Conde Pulse Ox Last 24 Hr 97.8 F-98.2 F 55-64 16-18 111-133/44-62 96-96 GENERAL: Awake, alert, and fully oriented, in no acute distress. Thin, frail. HEAD: Normal with no signs of trauma. EYES: Pupils equal, round and reactive to light, extraocular movements intact, sclera anicteric, conjunctiva clear. No ptosis. EARS, NOSE, THROAT: Ears normal, nares patent, oropharynx clear without exudates. Moist mucous membranes. NECK: Normal range of motion, supple without lymphadenopathy, JVD, or masses. Firm nonmobile mass noted right jawline extending from ear to neck LUNGS: Breath sounds equal. No wheezes. No accessory muscle use. diminished bilat bases, + crackles above HEART: Regular rate and rhythm, normal S1 and S2 without murmur, rub or gallop. ABDOMEN: Soft, not tender, distended, tympanic. MUSCULOSKELETAL: Normal range of motion at all joints. No bony deformities or tenderness. No CVA tenderness. UPPER EXTREMITIES: 2+ pulses, warm, well-perfused. No cyanosis. No clubbing. No peripheral edema. LOWER EXTREMITIES: 2+ pulses, warm, well-perfused. No calf tenderness. Edema almost completely resolved. Trace pedal edema. NEUROLOGICAL: Cranial nerves II-XII intact. Normal speech. Normal gait. Laboratory Results - last 24 hr 06/06/17 06/06/17 06/06/17 05:35 05:35 05:35 WBC 5.0 RBC 2.81 L Hgb 7.0 L D Hct 21.5 L D MCV 76.6 L MCH 24.8 L MCHC 32.4 RDW 18.1 H Plt Count 323 D MPV 8.3 Neutrophils % Lymphocytes % Monocytes % Eosinophils % Basophils % INR 1.27 H Sodium 136 Potassium 3.7 Chloride 98 Carbon Dioxide 31 Anion Gap 7 L BUN 14 D Creatinine 0.8 Creat Clearance w eGFR > 60 Random Glucose 87 Calcium 8.1 L Total Bilirubin 0.6 D AST 24 D ALT 21 Alkaline Phosphatase 171 H Total Protein 5.7 L Albumin 2.7 L Free T4 1.40 D 06/06/17 06/06/17 05:35 18:31 WBC 6.0 RBC 3.10 L Hgb 7.5 L Hct 24.2 L MCV 78.1 L MCH 24.2 L MCHC 30.9 L RDW 18.0 H Plt Count 392 D MPV 8.3 Neutrophils % 69.8 Lymphocytes % 12.3 Monocytes % 11.8 H Eosinophils % 3.3 Basophils % 2.8 H INR Sodium Potassium Chloride Carbon Dioxide Anion Gap BUN Creatinine Creat Clearance w eGFR Random Glucose Calcium Total Bilirubin AST ALT Alkaline Phosphatase Total Protein Albumin Free T4 Cancelled Active Medications Generic Name Dose Route Start Last Admin Trade Name Freq PRN Reason Stop Dose Admin Acetaminophen 650 mg 06/05/17 02:25 06/06/17 17:47 Tylenol - PO 650 mg Q4H PRN Administration FEVER OR PAIN Amlodipine Besylate 10 mg 06/05/17 10:00 06/06/17 10:16 Norvasc - PO 10 mg DAILY MARGARITA Administration Artificial Tears 1 drop 06/05/17 06:00 06/07/17 06:34 Artificial Tears OU 1 drop TID MARGARITA Administration Cholecalciferol 2,000 unit 06/05/17 10:00 06/06/17 10:16 Vitamin D3 - PO 2,000 unit DAILY MARGARITA Administration Clonazepam 0.5 mg 06/05/17 10:00 06/06/17 21:22 Klonopin - PO 0.5 mg BID MARGARITA Administration Enoxaparin Sodium 60 mg 06/06/17 10:00 06/06/17 21:26 Lovenox - SQ 60 mg BID MARGARITA Administration Furosemide 40 mg 06/05/17 14:00 06/07/17 06:35 Lasix Injection - IVPUSH 40 mg BIDLASIX MARGARITA Administration Hydroxyurea 500 mg 06/05/17 10:00 06/06/17 10:16 Hydrea - PO 500 mg DAILY MARGARITA Administration Lactobacillus Acidophilus 1 tab 06/05/17 10:00 06/06/17 10:16 Bacid - PO 1 tab DAILY MARGARITA Administration Lidocaine 1 patch 06/05/17 10:00 06/06/17 10:15 Lidoderm Patch - TP 1 patch DAILY MRAGARITA Administration Lidocaine/Aluminum/Magnesium/Simeth 15 ml 06/05/17 06:00 06/07/17 06:34 Magic Mouthwash *Sjr Formula* - MM 15 ml Q6HPO MARGARITA Administration Miscellaneous 1 each 06/05/17 22:00 06/06/17 21:37 Lidoderm Patch Removal MC Not Given DAILY@2200 MARGARITA Ranitidine HCl 150 mg 06/05/17 10:00 06/06/17 22:01 Zantac - PO Not Given BID MARGARITA Sotalol HCl 40 mg 06/05/17 07:00 06/07/17 06:35 Betapace - PO 40 mg AM MARGARITA Administration Sotalol HCl 80 mg 06/05/17 12:00 06/06/17 12:06 Betapace - PO 80 mg DAILY@1200 MARGARITA Administration Sotalol HCl 120 mg 06/05/17 22:00 06/06/17 21:21 Betapace - PO 120 mg HS MARGARITA Administration ASSESSMENT/PLAN 86 year-old female with a PMH significant for HTN, 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 Admitted for symptomatic anemia, bilateral pleural effusions, ascites, and bilateral lower extremity edema. 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 Paola Rolon --continue hydroxyrea --request consult by Dr. Rolon Anemia --Hgb 7.9, baseline Portal vein thrombus --mild ascites --continue lovenox at loser dose --discussed treatment options with Dr. Acevedo; two possible IR approaches, targeted TPA and suction thrombectomy. Both involve substantial risk of bleeding among other risks. Lengthy discussion with daughter yesterday who is not inclined to pursue aggressive treatment.mm Splenic infarcts --seen on CT imaging --possible emboli from portal vein thrombus --heme would like to start ASA but patient states she has allergy and does not want to risk an allergic reaction Atrial fibrillation --rate well-controlled, continue sotalol --continue full dose lovenox Tucker's thyroiditis --TSH high, free T4 wnl GERD --continue zantac BID T12 compression fracture --lidocaine patch FEN Fluids: PO intake adequate Electrolytes: replete as indicated Nutrition: sodium-controlled diet DVT prophylaxis: on full dose lovenox Dispo: Discussion with daughter on 06/06 about goals of care. Will get palliative care consult. Continues to require inpatient care. Full Code. Visit type - Emergency Visit Emergency Visit: Yes ED Registration Date: 06/05/17 Care time: The patient presented to the Emergency Department on the above date and was hospitalized for further evaluation of their emergent condition. - New Patient This patient is new to me today: No - Critical Care Critical Care patient: No
[2017-06-07 08:20] LABS: MCH 24.3 pg (25.7-33.7); MCHC 31.3 g/dl (32.0-36.0); MEAN CELL VOLUME 77.5 fl (80-96); WHITE BLOOD COUNT 4.8 K/mm3 (4.0-10.0)
[2017-06-07 08:44] LABS: ALBUMIN 2.8 g/dl (3.4-5.0); ANION GAP 7 (8-16); BILIRUBIN,TOTAL 0.6 mg/dL (0.2-1.0); CALCIUM 8.3 mg/dL (8.5-10.1); CO2 32 mmol/L (21-32); CREATININE 0.7 mg/dL (0.55-1.02); GLUCOSE,RANDOM 81 mg/dL (74-106); MAGNESIUM 1.8 mg/dL (1.8-2.4); PHOSPHOROUS 2.9 mg/dL (2.5-4.9); SGOT/AST 25 U/L (15-37); SGPT/ALT 22 U/L (12-78); TOT PROT 6.1 g/dl (6.4-8.2)
[2017-06-07 08:45] LABS: ALK PHOS 174 U/L (45-117)
[2017-06-07] MEDS: CHOLECALCIFEROL (VITAMIN D3) 1,000 UNIT TABLET (FP) PO SCH (10:12)
[2017-06-07] MEDS: LIDOCAINE 5% TOPICAL PATCH TP SCH (10:12)
[2017-06-07] MEDS: amLODIPine BESYLATE 10 MG TABLET (FP) PO SCH (10:13)
[2017-06-07] MEDS: ENOXAPARIN NA (PORCINE) 60 MG/0.6 ML DISP.SYRIN SQ SCH ×2 (10:13→21:02)
[2017-06-07] MEDS: RANITIDINE HCL 150 MG TABLET (FP) PO SCH ×2 (10:13→21:02)
[2017-06-07] MEDS: HYDROXYUREA 500 MG CAPSULE PO SCH (10:13)
[2017-06-07] MEDS: LACTOBACILLUS ACIDOPHILUS 1 EACH TAB (FP) PO SCH (10:13)
[2017-06-07] MEDS: clonazePAM 0.5 MG TABLET PO SCH ×3 (10:25→21:01)
--- NOTE | 2017-06-07 10:59 | PN ---
Progress Note (short form) - Note Progress Note: S: 86 year old female, with history of portal thrombus and splenic infarct, mitral valve prolapse, paroxysmal atrial fibrillation, hypertension, al thyroiditis, history of myelodysplastic syndrome, essential thrombocytosis and anemia, history of lymphoma, and gastroesophageal reflux disease. Patient has persistent right upper quadrant discomfort, and also has ascites and pedal edema, probably related to portal hypertension and she is on Lasix. No history of dyspnea, palpitations, or chest discomfort. Active Medications Generic Name Dose Route Start Last Admin Trade Name Freq PRN Reason Stop Dose Admin Acetaminophen 650 mg 06/05/17 02:25 06/06/17 17:47 Tylenol - PO 650 mg Q4H PRN Administration FEVER OR PAIN Amlodipine Besylate 10 mg 06/05/17 10:00 06/07/17 10:13 Norvasc - PO 10 mg DAILY MARGARITA Administration Artificial Tears 1 drop 06/05/17 06:00 06/07/17 06:34 Artificial Tears OU 1 drop TID MARGARITA Administration Cholecalciferol 2,000 unit 06/05/17 10:00 06/07/17 10:12 Vitamin D3 - PO 2,000 unit DAILY MARGARITA Administration Clonazepam 0.5 mg 06/05/17 10:00 06/07/17 10:25 Klonopin - PO Not Given BID MARGARITA Enoxaparin Sodium 60 mg 06/06/17 10:00 06/07/17 10:13 Lovenox - SQ 60 mg BID MARGARITA Administration Furosemide 40 mg 06/05/17 14:00 06/07/17 06:35 Lasix Injection - IVPUSH 40 mg BIDLASIX MARGARITA Administration Hydroxyurea 500 mg 06/05/17 10:00 06/07/17 10:13 Hydrea - PO 500 mg DAILY MARGARITA Administration Lactobacillus Acidophilus 1 tab 06/05/17 10:00 06/07/17 10:13 Bacid - PO 1 tab DAILY MARGARITA Administration Lidocaine 1 patch 06/05/17 10:00 06/07/17 10:12 Lidoderm Patch - TP 1 patch DAILY MARGARITA Administration Lidocaine/Aluminum/Magnesium/Simeth 15 ml 06/05/17 06:00 06/07/17 06:34 Magic Mouthwash *Sjr Formula* - MM 15 ml Q6HPO MARGARITA Administration Miscellaneous 1 each 06/05/17 22:00 06/06/17 21:37 Lidoderm Patch Removal MC Not Given DAILY@2200 MARGARITA Ranitidine HCl 150 mg 06/05/17 10:00 06/07/17 10:13 Zantac - PO 150 mg BID MARGARITA Administration Sotalol HCl 40 mg 06/05/17 07:00 06/07/17 06:35 Betapace - PO 40 mg AM MARGARITA Administration Sotalol HCl 80 mg 06/05/17 12:00 06/06/17 12:06 Betapace - PO 80 mg DAILY@1200 MARGARITA Administration Sotalol HCl 120 mg 06/05/17 22:00 06/06/17 21:21 Betapace - PO 120 mg HS MARGARITA Administration O: 86 year old female was in no acute distress, no pallor, cyanosis, clubbing, or jaundice. Last Vital Signs Temp Pulse Resp BP Pulse Ox 98.2 F 64 16 138/54 96 06/07/17 09:00 06/07/17 09:00 06/07/17 09:00 06/07/17 09:00 06/06/17 21:00 Neck: Supple, no JVD, negative HJR, carotids were equal and upstrokes were normal, no thyromegaly appreciated. Heart: PMI was in the 5th intercostal space, no heaves or thrills, S1 and S2 were normal. Nonejection systolic click was heard along the left sternal border , grade I/ apical systolic murmur. No gallops were appreciated. Lungs: Clear on auscultation bilaterally. Abdomen: Right upper quadrant mild tenderness and guarding. No hepatosplenomegaly was appreciated. Slight dullness at the flanks on precussion. Extremities: No calf tenderness, 2+ dependent edema. Pulses are normal. CBC, BMP 06/07/17 05:35 06/07/17 05:35 Laboratory Results - last 24 hr 06/06/17 06/07/17 06/07/17 18:31 05:35 05:35 WBC 6.0 4.8 RBC 3.10 L 3.24 L Hgb 7.5 L 7.9 L Hct 24.2 L 25.1 L MCV 78.1 L 77.5 L MCH 24.2 L 24.3 L MCHC 30.9 L 31.3 L RDW 18.0 H 18.0 H Plt Count 392 D MPV 8.3 10.0 D Neutrophils % 69.8 Y Lymphocytes % 12.3 Y Monocytes % 11.8 H Eosinophils % 3.3 Basophils % 2.8 H Sodium 135 L Potassium 3.8 Chloride 96 L Carbon Dioxide 32 Anion Gap 7 L BUN 16 Creatinine 0.7 Creat Clearance w eGFR > 60 Random Glucose 81 Calcium 8.3 L Phosphorus 2.9 Magnesium 1.8 Total Bilirubin 0.6 AST 25 ALT 22 Alkaline Phosphatase 174 H Total Protein 6.1 L Albumin 2.8 L Impression: (1) Anemia Code(s): D64.9 - ANEMIA, UNSPECIFIED (2) Hypertension Code(s): I10 - ESSENTIAL (PRIMARY) HYPERTENSION (3) Myelodysplastic syndrome Code(s): D46.9 - MYELODYSPLASTIC SYNDROME, UNSPECIFIED (4) Portal vein thrombosis Code(s): I81 - PORTAL VEIN THROMBOSIS (5) Mitral valve prolapse syndrome Code(s): I34.1 - NONRHEUMATIC MITRAL (VALVE) PROLAPSE (6) Paroxysmal a-fib, currently in sinus rhythm Code(s): I48.0 - PAROXYSMAL ATRIAL FIBRILLATION (7) Portal hypertension Code(s): K76.6 - PORTAL HYPERTENSION (8) Depression Code(s): F32.9 - MAJOR DEPRESSIVE DISORDER, SINGLE EPISODE, UNSPECIFIED (9) Lymphoma Code(s): C85.90 - NON-HODGKIN LYMPHOMA, UNSPECIFIED, UNSPECIFIED SITE (10) Essential (hemorrhagic) thrombocythemia Code(s): D47.3 - ESSENTIAL (HEMORRHAGIC) THROMBOCYTHEMIA Recommendations: 1. Close follow up of CBC. 2. Continue current cardiac medications. 3. Increase ambulation. 4. Daily weights. Prognosis: Guarded Attestation: Documentation prepared by Greg Trejo, acting as biomedical instrument technician for Robert Loaiza MD.
--- NOTE | 2017-06-07 12:28 | PN ---
Progress Note (short form) - Note Progress Note: PULMONARY CONSULTATION DICTATED 06/07/17 IMP DYSPNEA ACUTE ON CHRONIC CHF BILATERAL PLEURAL EFFUSIONS SECONDARY TO ABOVE ABDOMINAL DISTENTION ANEMIA AFIB MYELODYSPLASTIC SYNDROME H/O MALT LYMPHOMA PORTAL VEIN THROMBOSIS SPLENIC INFARCTS PLAN LASIX ANTICOAGULATION O2 DAILY WTS F/U CHEST X-RAY MONITOR LYTES/CBC DR NULL Problem List - Problems (1) Abdominal pain Code(s): R10.9 - UNSPECIFIED ABDOMINAL PAIN (2) Compression fracture of lumbar vertebra Code(s): S32.000A - WEDGE COMPRESSION FRACTURE OF UNSP LUMBAR VERTEBRA, INIT Qualifiers: Encounter type: initial encounter Fracture type: closed Qualified Code(s): S32.000A - Wedge compression fracture of unspecified lumbar vertebra, initial encounter for closed fracture (3) Lymphoma Code(s): C85.90 - NON-HODGKIN LYMPHOMA, UNSPECIFIED, UNSPECIFIED SITE (4) Pleural effusion Code(s): J90 - PLEURAL EFFUSION, NOT ELSEWHERE CLASSIFIED (5) Portal hypertension Code(s): K76.6 - PORTAL HYPERTENSION (6) Splenic infarct Code(s): D73.5 - INFARCTION OF SPLEEN (7) GERD (gastroesophageal reflux disease) Code(s): K21.9 - GASTRO-ESOPHAGEAL REFLUX DISEASE WITHOUT ESOPHAGITIS (8) Tucker's thyroiditis Code(s): E06.3 - AUTOIMMUNE THYROIDITIS (9) Hypertension Code(s): I10 - ESSENTIAL (PRIMARY) HYPERTENSION (10) MALT lymphoma Code(s): C88.4 - EXTRNOD MRGNL ZN B-CELL LYMPH OF MUCOSA-ASSOC LYMPHOID TISS (11) Myelodysplastic syndrome Code(s): D46.9 - MYELODYSPLASTIC SYNDROME, UNSPECIFIED (12) Portal vein thrombosis Code(s): I81 - PORTAL VEIN THROMBOSIS (13) A-fib Code(s): I48.91 - UNSPECIFIED ATRIAL FIBRILLATION Qualifiers: Atrial fibrillation type: paroxysmal Qualified Code(s): I48.0 - Paroxysmal atrial fibrillation
[2017-06-07 12:34] LABS: METAMYELOCYTE 1 % (0-2); PLATELET ESTIMATE ADEQUATE (NORMAL)
[2017-06-07 12:35] LABS: PLATELET COMMENT2 NO CLOTTING DETECTED
--- NOTE | 2017-06-07 13:27 | CONS ---
DATE OF CONSULTATION: 06/07/2017 REFERRING PHYSICIAN: Sana Sanford NP HISTORY OF PRESENT ILLNESS: The patient is an 86-year-old white female with past medical history which includes atrial fibrillation, myelofibrosis, MALT lymphoma of the parotid gland, status post radiation, hypertension, mitral valve prolapse, Tucker thyroiditis, GERD, portal vein thrombosis, appendectomy, bilateral oophorectomy, bilateral cataract surgery, admitted to [facility] from [facility] secondary to generalized weakness, lower extremity edema, and abdominal distention. The patient denied any complaints of fevers or chills. There is a question of possible pneumonia. Patient was admitted. She was placed on broad-spectrum antibiotics per Infectious Disease. She was seen by Infectious Disease and felt to not have a pneumonia. Of note is patient was recently discharged from [facility] 5 days prior to this admission where she was noted to have a T12 compression fracture, status post fall. Previous hospitalization was complicated by constipation, ischemic colitis which was treated conservatively with IV fluids and antibiotics with improvement. Patient was admitted . During the current hospitalization, she was also evaluated by Dr. Loaiza for cardiology consultation. Patient underwent a chest x-ray on June 07, earlier today, which revealed bilateral mild pulmonary vascular congestion, bilateral pleural effusions which was mildly increased from previous exam on June 04, 2017. The patient is a nonsmoker. She denies any history of occupational exposure to chemicals or fumes. At the current time, she is not complaining of any shortness of breath, cough, or hemoptysis. PAST MEDICAL HISTORY: Again includes lymphoma of the parotid gland, status post radiation, gastroesophageal reflux, myelodysplastic syndrome, hypertension, Tucker thyroiditis, mitral valve prolapse, paroxysmal atrial fibrillation, and also portal vein thrombosis. REVIEW OF SYSTEMS: No orthopnea. No shortness of breath. No chest pain. No palpitations. Positive abdominal bloating and distention and pedal edema. CURRENT MEDICATIONS: Include: 1. Lidoderm patch. 2. Tylenol. 3. Lovenox. 4. Bacid. 5. Hydria. 6. Klonopin. 7. Betapace. 8. Norvasc. 9. Artificial tears. 10. Zantac. 11. Lasix. 12. Magic mouthwash. 13. Vitamin D3. PHYSICAL EXAMINATION:General: The patient is an elderly white female, well developed, thin, awake, alert, in no acute distress. Vital Signs: She is currently afebrile, blood pressure is 138/54, respiratory rate is 16, O2 saturation is 96% on 3 L. HEENT: Normocephalic, atraumatic. Neck: Supple. Heart: Irregular with normal S1, S2. Chest: Few bibasilar crackles. Abdomen: Soft. Bowel sounds present. Extremities: Bilateral lower extremity edema. LABORATORIES: WBC is 4.8, hemoglobin 7.9, hematocrit 25.1 with a platelet count that is pending. INR is 1.27. BUN 16, creatinine 0.7. Chest CT reveals a small- to moderate-sized right pleural effusion and small left pleural effusion, bibasilar most likely atelectatic changes, doubt infiltrates. Shows interval development of several infarcts in the spleen. There is also perihepatic ascites noted. CT scan of the abdomen reveals bilateral pleural effusions, slight increase in ascites, small amount of ascites, and possible anasarca. IMPRESSION: 1. Weight gain. 2. Dyspnea, most likely secondary to mild congestive heart failure, fluid overload, worsening edema, doubt infectious process, acute on chronic diastolic heart failure. 3. Portal vein thrombosis. 4. Atrial fibrillation. 5. 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 6. Myelodysplastic syndrome. 7. Portal vein thrombosis. 8. Anemia. PLAN: Continue IV Lasix, supplemental O2, daily weights. Obtain followup chest x-ray. No need for thoracentesis at this time. CALDERON NULL M.D. [id number]
--- NOTE | 2017-06-07 14:09 | PN ---
Progress Note (short form) - Note Progress Note: Radiation Oncology: Ms. Lai had abdominal discomfort when I met with her. She is reluctant to start radiation because of the pain she gets when laying completely flat and the sores in her mouth. The notes in our chart and Dr. Bernabe's note in the hospital chart emphasized this. In order for her to start radiation she has to be able to lay completely flat and be comfortable. She will need pain medication to do this. She won't start radiation until this is addressed. my cell is [phone]
--- NOTE | 2017-06-07 14:54 | PN ---
Progress Note (short form) - Note Progress Note: Patient seen and examined. She feels OK in terms of her breathing and her lower extremity, Still with some discomfort in the abdomen, she also mentioned her back is now bothering her and she is feeling a bit "frustrated" with everything. She did say she has increased bowel movement frequency today but not loose stool. O/E: General: in chair, c/o mild abdominal discomfort HEENT: NC AT Cardiac: RRR Lungs: Decreased breath sounds bilaterally Abdomen: mildly distended, no tenderness noted LE: edema getting better. CBC, BMP 06/07/17 05:35 06/07/17 05:35 Current Medications Generic Name Dose Route Start Last Admin Trade Name Freq PRN Reason Stop Dose Admin Acetaminophen 650 mg 06/05/17 02:25 06/06/17 17:47 Tylenol - PO 650 mg Q4H PRN Administration FEVER OR PAIN Amlodipine Besylate 10 mg 06/05/17 10:00 06/07/17 10:13 Norvasc - PO 10 mg DAILY MARGARITA Administration Artificial Tears 1 drop 06/05/17 06:00 06/07/17 06:34 Artificial Tears OU 1 drop TID MARGARITA Administration Cholecalciferol 2,000 unit 06/05/17 10:00 06/07/17 10:12 Vitamin D3 - PO 2,000 unit DAILY MARGARITA Administration Clonazepam 0.25 mg 06/07/17 11:15 06/07/17 12:20 Klonopin - PO 0.25 mg BID MARGARITA Administration Enoxaparin Sodium 60 mg 06/06/17 10:00 06/07/17 10:13 Lovenox - SQ 60 mg BID MARGARITA Administration Furosemide 40 mg 06/05/17 14:00 06/07/17 06:35 Lasix Injection - IVPUSH 40 mg BIDLASIX MARGARITA Administration Hydroxyurea 500 mg 06/05/17 10:00 06/07/17 10:13 Hydrea - PO 500 mg DAILY MARGARITA Administration Lactobacillus Acidophilus 1 tab 06/05/17 10:00 06/07/17 10:13 Bacid - PO 1 tab DAILY MARGARITA Administration Lidocaine 1 patch 06/05/17 10:00 06/07/17 10:12 Lidoderm Patch - TP 1 patch DAILY MARGARITA Administration Lidocaine/Aluminum/Magnesium/Simeth 15 ml 06/05/17 06:00 06/07/17 12:21 Magic Mouthwash *Sjr Formula* - MM 15 ml Q6HPO MARGARITA Administration Miscellaneous 1 each 06/05/17 22:00 06/06/17 21:37 Lidoderm Patch Removal MC Not Given DAILY@2200 MARGARITA Ranitidine HCl 150 mg 06/05/17 10:00 06/07/17 10:13 Zantac - PO 150 mg BID MARGARITA Administration Sotalol HCl 40 mg 06/05/17 07:00 06/07/17 06:35 Betapace - PO 40 mg AM MARGARITA Administration Sotalol HCl 80 mg 06/05/17 12:00 06/07/17 12:21 Betapace - PO 80 mg DAILY@1200 MARGARITA Administration Sotalol HCl 120 mg 06/05/17 22:00 06/06/17 21:21 Betapace - PO 120 mg HS MARGARITA Administration Last Vital Signs Temp Pulse Resp BP Pulse Ox 98.2 F 64 16 138/54 96 06/07/17 09:00 06/07/17 09:00 06/07/17 09:00 06/07/17 09:00 06/07/17 09:00 Assessment/Plan: is well known to our service, with 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 CT chest/abdomen/pelvis reviewed. Anasarca/LE edema/Bilateral Pleural effusions: -?CHF -On IV diuretics, weight decreased -Cardiology f/u noted -CXR report reviewed, with pleural effusions, pulmonary evaluation noted Portal vein thrombosis: -on therapeutic lovenox. -pt with new splenic infarcts as was compared to CT scan 05/2017. -IR consulted, recs given to daughter as per team, but did not want any invasive measure, will c/w systemic AC PMF from ET: -c/w Hydrea 500mg daily -splenomegaly from PMF. MALToma ( parotid) -appreciate Dr.Del An's eval Pain from compression fracture: -was seen by Neurosurgery last admission, conservative approach preferred. -pain management consult Iron Overload: -confirmed from MRI -?out patient chelation Paroxysmal AC: -on systemic a/c
[2017-06-07] MEDS: LIDOCAINE PATCH REMOVAL MC SCH (21:02)
[2017-06-07] MEDS ORDERED: PT OWN MED DRAWER 7, Y5N ONE (21:03)
[2017-06-08] MEDS ORDERED: PROCHLORPERAZINE MALEATE 5 MG TABLET PO ONE (06:01)
[2017-06-08] MEDS: ARTIFICIAL TEARS (POLYVINYL ALCOHOL 1.4%) OPTH DROPS OU SCH ×3 (06:12→21:17)
[2017-06-08] MEDS: FUROSEMIDE 40 MG/4 ML INJECTABLE VIAL IVPUSH SCH ×2 (06:12→13:58)
[2017-06-08] MEDS: MAG HYDROX/ALH/SMC/DPHA/LIDO 240 ML MOUTHWASH MM SCH ×4 (06:36→23:14)
[2017-06-08] MEDS: SOTALOL HCL 80 MG TABLET (FP) PO SCH ×3 (06:36→21:17)
[2017-06-08 08:07] LABS: BASOPHIL 2.5 % (0-2.0); EOSINOPHIL 3.6 % (0-4.5); MCH 24.6 pg (25.7-33.7); MCHC 31.6 g/dl (32.0-36.0); MEAN PLT VOLUME 8.3 fl (7.5-11.1); NEUTROPHILS 70.3 % (42.8-82.8); PLATELET COUNT 373 K/MM3 (134-434); RDW 18.2 % (11.6-15.6); WHITE BLOOD COUNT 5.5 K/mm3 (4.0-10.0)
--- NOTE | 2017-06-08 08:20 | PN ---
Progress Note, Physician History of Present Illness: pulmonary alert,comfortable,-resp distress,+abd discomfort - Current Medication List Current Medications: Active Medications Acetaminophen (Tylenol -) 650 mg PO Q4H PRN PRN Reason: FEVER OR PAIN Last Admin: 06/06/17 17:47 Dose: 650 mg Amlodipine Besylate (Norvasc -) 10 mg PO DAILY [facility] Last Admin: 06/07/17 10:13 Dose: 10 mg Artificial Tears (Artificial Tears) 1 drop OU TID [facility] Last Admin: 06/08/17 06:12 Dose: 1 drop Cholecalciferol (Vitamin D3 -) 2,000 unit PO DAILY [facility] Last Admin: 06/07/17 10:12 Dose: 2,000 unit Clonazepam (Klonopin -) 0.25 mg PO BID [facility] Last Admin: 06/07/17 21:01 Dose: 0.25 mg Enoxaparin Sodium (Lovenox -) 60 mg SQ BID [facility] Last Admin: 06/07/17 21:02 Dose: 60 mg Furosemide (Lasix Injection -) 40 mg IVPUSH BIDLASIX [facility] Last Admin: 06/08/17 06:12 Dose: 40 mg Hydroxyurea (Hydrea -) 500 mg PO DAILY [facility] Last Admin: 06/07/17 10:13 Dose: 500 mg Lactobacillus Acidophilus (Bacid -) 1 tab PO DAILY [facility] Last Admin: 06/07/17 10:13 Dose: 1 tab Lidocaine (Lidoderm Patch -) 1 patch TP DAILY [facility] Last Admin: 06/07/17 10:12 Dose: 1 patch Lidocaine/Aluminum/Magnesium/Simeth (Magic Mouthwash *Sjr Formula* -) 15 ml MM Q6HPO [facility] Last Admin: 06/08/17 06:36 Dose: Not Given Miscellaneous (Lidoderm Patch Removal) 1 each MC DAILY@2200 [facility] Last Admin: 06/07/17 21:02 Dose: 1 each Ranitidine HCl (Zantac -) 150 mg PO BID [facility] Last Admin: 06/07/17 21:02 Dose: 150 mg Sotalol HCl (Betapace -) 40 mg PO AM [facility] Last Admin: 06/08/17 06:36 Dose: 40 mg Sotalol HCl (Betapace -) 80 mg PO DAILY@1200 [facility] Last Admin: 06/07/17 12:21 Dose: 80 mg Sotalol HCl (Betapace -) 120 mg PO HS [facility] Last Admin: 06/07/17 21:01 Dose: 120 mg - Objective Vital Signs: Vital Signs Temperature 98.7 F 06/08/17 06:00 Pulse Rate 62 06/08/17 06:00 Respiratory Rate 18 06/08/17 06:00 Blood Pressure 131/51 06/08/17 06:00 O2 Sat by Pulse Oximetry (%) 94 L 06/07/17 21:00 Constitutional: Yes: Calm, Thin Eyes: Yes: WNL HENT: Yes: WNL Neck: Yes: WNL Cardiovascular: Yes: Pulse Irregular, S1, S2 Respiratory: Yes: Rales (few bibasilar crackles) Gastrointestinal: Yes: Distention, Tenderness Extremities: Yes: WNL Edema: Yes Labs: CBC, BMP 06/08/17 05:55 INR, PTT INR 1.27 (0.82-1.09) H 06/06/17 05:35 Problem List - Problems (1) Abdominal pain Code(s): R10.9 - UNSPECIFIED ABDOMINAL PAIN (2) Compression fracture of lumbar vertebra Code(s): S32.000A - WEDGE COMPRESSION FRACTURE OF UNSP LUMBAR VERTEBRA, INIT Qualifiers: Encounter type: initial encounter Fracture type: closed Qualified Code(s): S32.000A - Wedge compression fracture of unspecified lumbar vertebra, initial encounter for closed fracture (3) Lymphoma Code(s): C85.90 - NON-HODGKIN LYMPHOMA, UNSPECIFIED, UNSPECIFIED SITE (4) Pleural effusion Code(s): J90 - PLEURAL EFFUSION, NOT ELSEWHERE CLASSIFIED (5) Portal hypertension Code(s): K76.6 - PORTAL HYPERTENSION (6) Splenic infarct Code(s): D73.5 - INFARCTION OF SPLEEN (7) GERD (gastroesophageal reflux disease) Code(s): K21.9 - GASTRO-ESOPHAGEAL REFLUX DISEASE WITHOUT ESOPHAGITIS (8) Tucker's thyroiditis Code(s): E06.3 - AUTOIMMUNE THYROIDITIS (9) Hypertension Code(s): I10 - ESSENTIAL (PRIMARY) HYPERTENSION (10) MALT lymphoma Code(s): C88.4 - EXTRNOD MRGNL ZN B-CELL LYMPH OF MUCOSA-ASSOC LYMPHOID TISS (11) Myelodysplastic syndrome Code(s): D46.9 - MYELODYSPLASTIC SYNDROME, UNSPECIFIED (12) Portal vein thrombosis Code(s): I81 - PORTAL VEIN THROMBOSIS (13) A-fib Code(s): I48.91 - UNSPECIFIED ATRIAL FIBRILLATION Qualifiers: Atrial fibrillation type: paroxysmal Qualified Code(s): I48.0 - Paroxysmal atrial fibrillation Assessment/Plan IMP DYSPNEA IMPROVING ACUTE ON CHRONIC CHF BILATERAL PLEURAL EFFUSIONS SECONDARY TO ABOVE ABDOMINAL DISTENTION ANEMIA AFIB MYELODYSPLASTIC SYNDROME H/O MALT LYMPHOMA PORTAL VEIN THROMBOSIS SPLENIC INFARCTS PLAN CONTINUE LASIX ANTICOAGULATION O2 DAILY WTS MONITOR CHEST X-RAYS MONITOR LYTES/CBC DR NULL Problem List - Problems (1) Abdominal pain Code(s): R10.9 - UNSPECIFIED ABDOMINAL PAIN (2) Compression fracture of lumbar vertebra Code(s): S32.000A - WEDGE COMPRESSION FRACTURE OF UNSP LUMBAR VERTEBRA, INIT Qualifiers: Encounter type: initial encounter Fracture type: closed Qualified Code(s): S32.000A - Wedge compression fracture of unspecified lumbar vertebra, initial encounter for closed fracture (3) Lymphoma Code(s): C85.90 - NON-HODGKIN LYMPHOMA, UNSPECIFIED, UNSPECIFIED SITE (4) Pleural effusion Code(s): J90 - PLEURAL EFFUSION, NOT ELSEWHERE CLASSIFIED (5) Portal hypertension Code(s): K76.6 - PORTAL HYPERTENSION (6) Splenic infarct Code(s): D73.5 - INFARCTION OF SPLEEN (7) GERD (gastroesophageal reflux disease) Code(s): K21.9 - GASTRO-ESOPHAGEAL REFLUX DISEASE WITHOUT ESOPHAGITIS (8) Tucker's thyroiditis Code(s): E06.3 - AUTOIMMUNE THYROIDITIS (9) Hypertension Code(s): I10 - ESSENTIAL (PRIMARY) HYPERTENSION (10) MALT lymphoma Code(s): C88.4 - EXTRNOD MRGNL ZN B-CELL LYMPH OF MUCOSA-ASSOC LYMPHOID TISS (11) Myelodysplastic syndrome Code(s): D46.9 - MYELODYSPLASTIC SYNDROME, UNSPECIFIED (12) Portal vein thrombosis Code(s): I81 - PORTAL VEIN THROMBOSIS (13) A-fib Code(s): I48.91 - UNSPECIFIED ATRIAL FIBRILLATION Qualifiers: Atrial fibrillation type: paroxysmal Qualified Code(s): I48.0 - Paroxysmal atrial fibrillation
[2017-06-08 08:50] LABS: ALBUMIN 3.1 g/dl (3.4-5.0); ANION GAP 9 (8-16); CALCIUM 8.7 mg/dL (8.5-10.1); CO2 34 mmol/L (21-32); GLUCOSE,RANDOM 88 mg/dL (74-106); MAGNESIUM 1.9 mg/dL (1.8-2.4); SGOT/AST 28 U/L (15-37); SGPT/ALT 24 U/L (12-78)
[2017-06-08 09:00] LABS: ALK PHOS 199 U/L (45-117); BILIRUBIN,TOTAL 0.9 mg/dL (0.2-1.0); CREATININE 0.8 mg/dL (0.55-1.02); TOT PROT 6.5 g/dl (6.4-8.2)
[2017-06-08] MEDS: HYDROXYUREA 500 MG CAPSULE PO SCH (09:34)
[2017-06-08] MEDS: LACTOBACILLUS ACIDOPHILUS 1 EACH TAB (FP) PO SCH (09:34)
[2017-06-08] MEDS: clonazePAM 0.5 MG TABLET PO SCH ×2 (09:34→21:17)
[2017-06-08] MEDS: RANITIDINE HCL 150 MG TABLET (FP) PO SCH ×3 (09:34→21:19)
[2017-06-08] MEDS: CHOLECALCIFEROL (VITAMIN D3) 1,000 UNIT TABLET (FP) PO SCH (09:34)
[2017-06-08] MEDS: amLODIPine BESYLATE 10 MG TABLET (FP) PO SCH (09:34)
[2017-06-08] MEDS: ENOXAPARIN NA (PORCINE) 60 MG/0.6 ML DISP.SYRIN SQ SCH ×2 (09:35→21:17)
[2017-06-08] MEDS: LIDOCAINE 5% TOPICAL PATCH TP SCH (09:35)
[2017-06-08] MEDS ORDERED: POTASSIUM CHLORIDE TABS 20 MEQ TABLET.ER (FP) PO SCH (11:45)
--- NOTE | 2017-06-08 11:47 | PN ---
Physical Exam: SUBJECTIVE: Patient seen and examined at bedside. Still with backpain from compression fracture. Had 4-5 soft stools in past 24 hours. OBJECTIVE: Vital Signs Period Temp Pulse Resp BP Sys/Conde Pulse Ox Last 24 Hr 98.2 F-98.8 F 58-65 18-22 118-140/49-66 94-95 GENERAL: Awake, alert, and fully oriented, in no acute distress. Thin, frail. HEAD: Normal with no signs of trauma. EYES: Pupils equal, round and reactive to light, extraocular movements intact, sclera anicteric, conjunctiva clear. No ptosis. EARS, NOSE, THROAT: Ears normal, nares patent, oropharynx clear without exudates. Moist mucous membranes. NECK: Normal range of motion, supple without lymphadenopathy, JVD, or masses. Firm nonmobile mass noted right jawline extending from ear to neck LUNGS: Breath sounds diminished at the bases HEART: Regular rate and rhythm, normal S1 and S2 without murmur, rub or gallop. ABDOMEN: Not as distended, soft, not tender MUSCULOSKELETAL: Normal range of motion at all joints. No bony deformities or tenderness. No CVA tenderness. UPPER EXTREMITIES: 2+ pulses, warm, well-perfused. No cyanosis. No clubbing. No peripheral edema. LOWER EXTREMITIES: 2+ pulses, warm, well-perfused. No calf tenderness. Edema resolved. NEUROLOGICAL: Cranial nerves II-XII intact. Normal speech. Laboratory Results - last 24 hr 06/07/17 06/08/17 06/08/17 05:35 05:55 05:55 WBC 4.8 5.5 RBC 3.24 L 3.02 L Hgb 7.9 L 7.4 L Hct 25.1 L 23.5 L MCV 77.5 L 78.0 L MCH 24.3 L 24.6 L MCHC 31.3 L 31.6 L RDW 18.0 H 18.2 H Plt Count No Result Required. 373 MPV 10.0 D 8.3 D Neutrophils % 74.0 70.3 Lymphocytes % 10.0 12.1 D Monocytes % 6.0 11.5 H D Eosinophils % 8.0 H D 3.6 Basophils % 1.0 2.5 H Metamyelocytes 1 Differential Comment Manual diff done Platelet Estimate Adequate Platelet Comment No clotting detected Sodium 136 Potassium 3.3 L Chloride 93 L Carbon Dioxide 34 H Anion Gap 9 BUN 17 Creatinine 0.8 Creat Clearance w eGFR > 60 Random Glucose 88 Calcium 8.7 Magnesium 1.9 Total Bilirubin 0.9 D AST 28 ALT 24 Alkaline Phosphatase 199 H Total Protein 6.5 Albumin 3.1 L Active Medications Generic Name Dose Route Start Last Admin Trade Name Freq PRN Reason Stop Dose Admin Acetaminophen 650 mg 06/05/17 02:25 06/06/17 17:47 Tylenol - PO 650 mg Q4H PRN Administration FEVER OR PAIN Amlodipine Besylate 10 mg 06/05/17 10:00 06/08/17 09:34 Norvasc - PO 10 mg DAILY [facility]ARG[facility]ITA Administration Artificial Tears 1 drop 06/05/17 06:00 06/08/17 06:12 Artificial Tears OU 1 drop TID [facility]ARGARITA Administration Cholecalciferol 2,000 unit 06/05/17 10:00 06/08/17 09:34 Vitamin D3 - PO 2,000 unit DAILY [facility] Administration Clonazepam 0.25 mg 06/07/17 11:15 06/08/17 09:34 Klonopin - PO 0.25 mg BID [facility]ITA Administration Enoxaparin Sodium 60 mg 06/06/17 10:00 06/08/17 09:35 Lovenox - SQ 60 mg BID [facility] Administration Furosemide 40 mg 06/05/17 14:00 06/08/17 06:12 Lasix Injection - IVPUSH 40 mg BIDLASIX [facility]ARG[facility]ITA Administration Hydroxyurea 500 mg 06/05/17 10:00 06/08/17 09:34 Hydrea - PO 500 mg DAILY [facility] Administration Lactobacillus Acidophilus 1 tab 06/05/17 10:00 06/08/17 09:34 Bacid - PO 1 tab DAILY [facility] Administration Lidocaine 1 patch 06/05/17 10:00 06/08/17 09:35 Lidoderm Patch - TP 1 patch DAILY [facility] Administration Lidocaine/Aluminum/Magnesium/Simeth 15 ml 06/05/17 06:00 06/08/17 06:36 Magic Mouthwash *Sjr Formula* - MM Not Given Q6HPO [facility]ARGARITA Miscellaneous 1 each 06/05/17 22:00 06/07/17 21:02 Lidoderm Patch Removal MC 1 each DAILY@2200 [facility] Administration Ranitidine HCl 150 mg 06/05/17 10:00 06/08/17 09:34 Zantac - PO 150 mg BID [facility] Administration Sotalol HCl 40 mg 06/05/17 07:00 06/08/17 06:36 Betapace - PO 40 mg AM [facility] Administration Sotalol HCl 80 mg 06/05/17 12:00 06/07/17 12:21 Betapace - PO 80 mg DAILY@1200 [facility]ITA Administration Sotalol HCl 120 mg 06/05/17 22:00 06/07/17 21:01 Betapace - PO 120 mg HS [facility] Administration ASSESSMENT/PLAN 86 year-old female with a PMH significant for HTN, 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 Admitted for symptomatic anemia, bilateral pleural effusions, ascites, and bilateral lower extremity edema. 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 Abdulaziz Pena, radiation oncologist; treatments will have to be held in abeyance until patient can lay flat --continue hydroxyrea Anemia --Hgb 7.9, baseline Portal vein thrombus --mild ascites --continue lovenox at loser dose --discussed treatment options with Dr. Acevedo; two possible IR approaches, targeted TPA and suction thrombectomy. Both involve substantial risk of bleeding among other risks. Lengthy discussion with daughter yesterday and patient today. Patient does not want to pursue these options. Splenic infarcts --seen on CT imaging --possible emboli from portal vein thrombus --heme would like to start ASA but patient states she has allergy and does not want to risk an allergic reaction Atrial fibrillation --rate well-controlled, continue sotalol --continue full dose lovenox Tucker's thyroiditis --TSH high, free T4 wnl GERD --continue zantac BID T12 compression fracture --lidocaine patch FEN Fluids: PO intake adequate Electrolytes: replete as indicated Nutrition: sodium-controlled diet DVT prophylaxis: on full dose lovenox Dispo: Discussion with daughter on 06/06 about goals of care. Will get palliative care consult. Continues to require inpatient care. Full Code. Visit type - Emergency Visit Emergency Visit: Yes ED Registration Date: 06/05/17 Care time: The patient presented to the Emergency Department on the above date and was hospitalized for further evaluation of their emergent condition. - New Patient This patient is new to me today: No - Critical Care Critical Care patient: No
--- NOTE | 2017-06-08 12:06 | PN ---
Progress Note (short form) - Note Progress Note: sleeping well chart reviewed Vital Signs Period Temp Pulse Resp BP Sys/Codne Pulse Ox Last 24 Hr 98.2 F-98.8 F 58-65 18-22 118-140/49-66 94-95 CBC, BMP 06/08/17 05:55 06/08/17 05:55 INR, PTT INR 1.27 (0.82-1.09) H 06/06/17 05:35 Active Medications Generic Name Dose Route Start Last Admin Trade Name Freq PRN Reason Stop Dose Admin Acetaminophen 650 mg 06/05/17 02:25 06/06/17 17:47 Tylenol - PO 650 mg Q4H PRN Administration FEVER OR PAIN Amlodipine Besylate 10 mg 06/05/17 10:00 06/08/17 09:34 Norvasc - PO 10 mg DAILY [facility]ARITA Administration Artificial Tears 1 drop 06/05/17 06:00 06/08/17 06:12 Artificial Tears OU 1 drop TID MARGARITA Administration Cholecalciferol 2,000 unit 06/05/17 10:00 06/08/17 09:34 Vitamin D3 - PO 2,000 unit DAILY [facility] Administration Clonazepam 0.25 mg 06/07/17 11:15 06/08/17 09:34 Klonopin - PO 0.25 mg BID M[facility]ITA Administration Enoxaparin Sodium 60 mg 06/06/17 10:00 06/08/17 09:35 Lovenox - SQ 60 mg BID [facility] Administration Furosemide 40 mg 06/05/17 14:00 06/08/17 06:12 Lasix Injection - IVPUSH 40 mg BIDLASIX [facility]ITA Administration Hydroxyurea 500 mg 06/05/17 10:00 06/08/17 09:34 Hydrea - PO 500 mg DAILY [facility] Administration Lactobacillus Acidophilus 1 tab 06/05/17 10:00 06/08/17 09:34 Bacid - PO 1 tab DAILY [facility] Administration Lidocaine 1 patch 06/05/17 10:00 06/08/17 09:35 Lidoderm Patch - TP 1 patch DAILY [facility] Administration Lidocaine/Aluminum/Magnesium/Simeth 15 ml 06/05/17 06:00 06/08/17 06:36 Magic Mouthwash *Sjr Formula* - MM Not Given Q6HPO [facility]ARGARITA Magnesium Sulfate 2 gm 06/08/17 12:30 Magnesium Sulfate IVPB 06/08/17 12:31 ONCE ONE Miscellaneous 1 each 06/05/17 22:00 06/07/17 21:02 Lidoderm Patch Removal MC 1 each DAILY@2200 [facility]ARG[facility] Administration Potassium Chloride 40 meq 06/08/17 12:00 K-Dur - PO 06/08/17 18:01 Q6H [facility]ARG[facility]ITA Ranitidine HCl 150 mg 06/05/17 10:00 06/08/17 09:34 Zantac - PO 150 mg BID [facility] Administration Sotalol HCl 40 mg 06/05/17 07:00 06/08/17 06:36 Betapace - PO 40 mg AM [facility] Administration Sotalol HCl 80 mg 06/05/17 12:00 06/07/17 12:21 Betapace - PO 80 mg DAILY@1200 [facility] Administration Sotalol HCl 120 mg 06/05/17 22:00 06/07/17 21:01 Betapace - PO 120 mg HS [facility]ARG[facility]ITA Administration Assessment/Plan: is well known to our service, with 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 CT chest/abdomen/pelvis reviewed. Anasarca/LE edema/Bilateral Pleural effusions: -?CHF -On IV diuretics, weight decreased -Cardiology f/u noted -CXR report reviewed, with pleural effusions, pulmonary evaluation noted Portal vein thrombosis: -on therapeutic lovenox. -pt with new splenic infarcts as was compared to CT scan 05/2017. -IR consulted, recs given to daughter as per team, but did not want any invasive measure, will c/w systemic AC PMF from ET: -c/w Hydrea 500mg daily -splenomegaly from PMF. MALToma ( parotid) -Rad Onc eval Pain from compression fracture: -was seen by Neurosurgery last admission, conservative approach preferred. -pain management consult Iron Overload: -confirmed from MRI
[2017-06-08] MEDS ORDERED: MAGNESIUM SULF 50% (8.12 MEQ/2 ML-1 GM VIAL) IVPB ONE (12:30)
[2017-06-08] MEDS ORDERED: PT OWN MED DRAWER 7, Y5N ONE (12:32)
[2017-06-08] MEDS: POTASSIUM CHLORIDE TABS 20 MEQ TABLET.ER (FP) PO SCH ×2 (12:57→18:47)
[2017-06-08] MEDS ORDERED: POTASSIUM CHLORIDE ORAL LIQUID 20 MEQ/15 ML ONE (17:47)
--- NOTE | 2017-06-08 18:00 | PN ---
Progress Note (short form) - Note Progress Note: 86 year old female known case of paroxymal atrial fib.portalvein thrombus and probable portal hypertension,hypertension,myelodysplastic syndrome,lymphoma. of she still has RUQ discomfort,pedai edema is less, no chest pain or discomfort.No SOB. Active Medications Generic Name Dose Route Start Last Admin Trade Name Freq PRN Reason Stop Dose Admin Acetaminophen 650 mg 06/05/17 02:25 06/06/17 17:47 Tylenol - PO 650 mg Q4H PRN Administration FEVER OR PAIN Amlodipine Besylate 10 mg 06/05/17 10:00 06/08/17 09:34 Norvasc - PO 10 mg DAILY [facility] Administration Artificial Tears 1 drop 06/05/17 06:00 06/08/17 13:58 Artificial Tears OU 1 drop TID MARGARITA Administration Cholecalciferol 2,000 unit 06/05/17 10:00 06/08/17 09:34 Vitamin D3 - PO 2,000 unit DAILY [facility] Administration Clonazepam 0.25 mg 06/07/17 11:15 06/08/17 09:34 Klonopin - PO 0.25 mg BID M[facility]ITA Administration Enoxaparin Sodium 60 mg 06/06/17 10:00 06/08/17 09:35 Lovenox - SQ 60 mg BID MARG[facility] Administration Furosemide 40 mg 06/05/17 14:00 06/08/17 13:58 Lasix Injection - IVPUSH 40 mg BIDLASIX [facility]ARG[facility]ITA Administration Hydroxyurea 500 mg 06/05/17 10:00 06/08/17 09:34 Hydrea - PO 500 mg DAILY [facility] Administration Lactobacillus Acidophilus 1 tab 06/05/17 10:00 06/08/17 09:34 Bacid - PO 1 tab DAILY [facility] Administration Lidocaine 1 patch 06/05/17 10:00 06/08/17 09:35 Lidoderm Patch - TP 1 patch DAILY [facility] Administration Lidocaine/Aluminum/Magnesium/Simeth 15 ml 06/05/17 06:00 06/08/17 12:58 Magic Mouthwash *Sjr Formula* - MM 15 ml Q6HPO [facility]ARG[facility]ITA Administration Miscellaneous 1 each 06/05/17 22:00 06/07/17 21:02 Lidoderm Patch Removal MC 1 each DAILY@2200 MARGAR[facility] Administration Potassium Chloride 40 meq 06/08/17 12:00 06/08/17 12:57 K-Dur - PO 06/08/17 18:01 40 meq Q6H MARG[facility]ITA Administration Ranitidine HCl 150 mg 06/05/17 10:00 06/08/17 09:34 Zantac - PO 150 mg BID [facility]ARGARTIA Administration Sotalol HCl 40 mg 06/05/17 07:00 06/08/17 06:36 Betapace - PO 40 mg AM [facility] Administration Sotalol HCl 80 mg 06/05/17 12:00 06/08/17 12:57 Betapace - PO 80 mg DAILY@1200 [facility]ARG[facility] Administration Sotalol HCl 120 mg 06/05/17 22:00 06/07/17 21:01 Betapace - PO 120 mg HS [facility]ARGARITA Administration 86 year old female was in no distress,no pallor,cyanosis,clubbing or jaundice. Vital Signs Period Temp Pulse Resp BP Sys/Conde Pulse Ox Last 24 Hr 98.2 F-99.7 F 58-67 18-22 118-140/49-66 94-95 O: NECK:Supplle,nojJVD,carotidsare 2+.no bruits or thromegaly. HEART:PMI was in the 5th ICS,no heavesor thrills.NEC along the LSB,no murmur or gallops heard LUNGS:Clear on auscultation. ABDOMEN:Soft,slight RUQ tenderness,no organomegaly. EXTREMITIES:No calf tenderness.2+ pretibial edema. Laboratory Last Values Abnormal Lab Results 06/08/17 06/08/17 05:55 05:55 RBC 3.02 L Hgb 7.4 L Hct 23.5 L MCV 78.0 L MCH 24.6 L MCHC 31.6 L RDW 18.2 H Monocytes % 11.5 H D Basophils % 2.5 H Potassium 3.3 L Chloride 93 L Carbon Dioxide 34 H Alkaline Phosphatase 199 H Albumin 3.1 L A: 1. Portal vein thrombosis. 2: probable portal hypertension. 3. H/O of mitral prolapse. 4. Paroxysmal atrial fib. 5. Hypertension. 6. Myelodysplastic syndrome. 7. Anemia. 8. Hypokalemia. RECOMMENDATIONS: 1.Continue current therapy. 2.Correction of K+. 3. Decrease dose of Lasix and switch to oral Lasix
[2017-06-08] MEDS: LIDOCAINE PATCH REMOVAL MC SCH (21:23)
[2017-06-09] MEDS: MAG HYDROX/ALH/SMC/DPHA/LIDO 240 ML MOUTHWASH MM SCH ×3 (06:39→17:34)
[2017-06-09] MEDS: ARTIFICIAL TEARS (POLYVINYL ALCOHOL 1.4%) OPTH DROPS OU SCH ×4 (06:39→21:11)
[2017-06-09] MEDS: SOTALOL HCL 80 MG TABLET (FP) PO SCH ×2 (06:39→13:22)
[2017-06-09] MEDS: FUROSEMIDE 40 MG/4 ML INJECTABLE VIAL IVPUSH SCH (06:39)
--- NOTE | 2017-06-09 08:45 | PN ---
Progress Note, Physician History of Present Illness: pulmnonary alert,feeling better,-sob,less abd discomfort - Current Medication List Current Medications: Active Medications Acetaminophen (Tylenol -) 650 mg PO Q4H PRN PRN Reason: FEVER OR PAIN Last Admin: 06/06/17 17:47 Dose: 650 mg Amlodipine Besylate (Norvasc -) 10 mg PO DAILY [facility] Last Admin: 06/08/17 09:34 Dose: 10 mg Artificial Tears (Artificial Tears) 1 drop OU TID [facility] Last Admin: 06/09/17 06:39 Dose: 1 drop Cholecalciferol (Vitamin D3 -) 2,000 unit PO DAILY [facility] Last Admin: 06/08/17 09:34 Dose: 2,000 unit Clonazepam (Klonopin -) 0.25 mg PO BID [facility] Last Admin: 06/08/17 21:17 Dose: 0.25 mg Enoxaparin Sodium (Lovenox -) 60 mg SQ BID [facility] Last Admin: 06/08/17 21:17 Dose: 60 mg Furosemide (Lasix Injection -) 40 mg IVPUSH DAILY [facility] Hydroxyurea (Hydrea -) 500 mg PO DAILY [facility] Last Admin: 06/08/17 09:34 Dose: 500 mg Lactobacillus Acidophilus (Bacid -) 1 tab PO DAILY [facility] Last Admin: 06/08/17 09:34 Dose: 1 tab Lidocaine (Lidoderm Patch -) 1 patch TP DAILY [facility] Last Admin: 06/08/17 09:35 Dose: 1 patch Lidocaine/Aluminum/Magnesium/Simeth (Magic Mouthwash *Sjr Formula* -) 15 ml MM Q6HPO [facility] Last Admin: 06/09/17 06:39 Dose: Not Given Miscellaneous (Lidoderm Patch Removal) 1 each MC DAILY@2200 [facility] Last Admin: 06/08/17 21:23 Dose: 1 each Ranitidine HCl (Zantac -) 150 mg PO BID [facility] Last Admin: 06/08/17 21:19 Dose: Not Given Sotalol HCl (Betapace -) 40 mg PO AM [facility] Last Admin: 06/09/17 06:39 Dose: 40 mg Sotalol HCl (Betapace -) 80 mg PO DAILY@1200 [facility] Last Admin: 06/08/17 12:57 Dose: 80 mg Sotalol HCl (Betapace -) 120 mg PO HS [facility] Last Admin: 06/08/17 21:17 Dose: 120 mg - Objective Vital Signs: Vital Signs Temperature 99 F 06/09/17 06:00 Pulse Rate 66 06/09/17 06:00 Respiratory Rate 16 06/09/17 06:00 Blood Pressure 143/56 06/09/17 06:00 O2 Sat by Pulse Oximetry (%) 96 06/08/17 20:47 Constitutional: Yes: Well Nourished, Calm Eyes: Yes: WNL HENT: Yes: WNL Neck: Yes: WNL Cardiovascular: Yes: Pulse Irregular, S1, S2 Respiratory: Yes: Diminished Gastrointestinal: Yes: Soft, Distention (mild distention) Extremities: Yes: WNL Edema: Yes Labs: CBC, BMP 06/08/17 05:55 06/08/17 05:55 INR, PTT INR 1.27 (0.82-1.09) H 06/06/17 05:35 Problem List - Problems (1) Abdominal pain Code(s): R10.9 - UNSPECIFIED ABDOMINAL PAIN (2) Compression fracture of lumbar vertebra Code(s): S32.000A - WEDGE COMPRESSION FRACTURE OF UNSP LUMBAR VERTEBRA, INIT Qualifiers: Encounter type: initial encounter Fracture type: closed Qualified Code(s): S32.000A - Wedge compression fracture of unspecified lumbar vertebra, initial encounter for closed fracture (3) Lymphoma Code(s): C85.90 - NON-HODGKIN LYMPHOMA, UNSPECIFIED, UNSPECIFIED SITE (4) Pleural effusion Code(s): J90 - PLEURAL EFFUSION, NOT ELSEWHERE CLASSIFIED (5) Portal hypertension Code(s): K76.6 - PORTAL HYPERTENSION (6) Splenic infarct Code(s): D73.5 - INFARCTION OF SPLEEN (7) GERD (gastroesophageal reflux disease) Code(s): K21.9 - GASTRO-ESOPHAGEAL REFLUX DISEASE WITHOUT ESOPHAGITIS (8) Tucker's thyroiditis Code(s): E06.3 - AUTOIMMUNE THYROIDITIS (9) Hypertension Code(s): I10 - ESSENTIAL (PRIMARY) HYPERTENSION (10) MALT lymphoma Code(s): C88.4 - EXTRNOD MRGNL ZN B-CELL LYMPH OF [place]UCOS[place]-ASSOC LYMPHOID TISS (11) Myelodysplastic syndrome Code(s): D46.9 - MYELODYSPLASTIC SYNDROME, UNSPECIFIED (12) Portal vein thrombosis Code(s): I81 - PORTAL VEIN THROMBOSIS (13) A-fib Code(s): I48.91 - UNSPECIFIED ATRIAL FIBRILLATION Qualifiers: Atrial fibrillation type: paroxysmal Qualified Code(s): I48.0 - Paroxysmal atrial fibrillation Assessment/Plan IMP DYSPNEA IMPROVING ACUTE ON CHRONIC CHF BILATERAL PLEURAL EFFUSIONS SECONDARY TO ABOVE ABDOMINAL DISTENTION ANEMIA AFIB MYELODYSPLASTIC SYNDROME H/O MALT LYMPHOMA PORTAL VEIN THROMBOSIS SPLENIC INFARCTS PLAN CONTINUE LASIX ANTICOAGULATION O2 DAILY WTS MONITOR CHEST X-RAYS MONITOR LYTES/CBC OOB TOLERATED DR NULL Problem List - Problems (1) Abdominal pain Code(s): R10.9 - UNSPECIFIED ABDOMINAL PAIN (2) Compression fracture of lumbar vertebra Code(s): S32.000A - WEDGE COMPRESSION FRACTURE OF UNSP LUMBAR VERTEBRA, INIT Qualifiers: Encounter type: initial encounter Fracture type: closed Qualified Code(s): S32.000A - Wedge compression fracture of unspecified lumbar vertebra, initial encounter for closed fracture (3) Lymphoma Code(s): C85.90 - NON-HODGKIN LYMPHOMA, UNSPECIFIED, UNSPECIFIED SITE (4) Pleural effusion Code(s): J90 - PLEURAL EFFUSION, NOT ELSEWHERE CLASSIFIED (5) Portal hypertension Code(s): K76.6 - PORTAL HYPERTENSION (6) Splenic infarct Code(s): D73.5 - INFARCTION OF SPLEEN (7) GERD (gastroesophageal reflux disease) Code(s): K21.9 - GASTRO-ESOPHAGEAL REFLUX DISEASE WITHOUT ESOPHAGITIS (8) Tucker's thyroiditis Code(s): E06.3 - AUTOIMMUNE THYROIDITIS (9) Hypertension Code(s): I10 - ESSENTIAL (PRIMARY) HYPERTENSION (10) MALT lymphoma Code(s): C88.4 - EXTRNOD MRGNL ZN B-CELL LYMPH OF [place]UC[place]-ASSOC LYMPHOID TISS (11) Myelodysplastic syndrome Code(s): D46.9 - MYELODYSPLASTIC SYNDROME, UNSPECIFIED (12) Portal vein thrombosis Code(s): I81 - PORTAL VEIN THROMBOSIS (13) A-fib Code(s): I48.91 - UNSPECIFIED ATRIAL FIBRILLATION Qualifiers: Atrial fibrillation type: paroxysmal Qualified Code(s): I48.0 - Paroxysmal atrial fibrillation
[2017-06-09 08:47] LABS: BASOPHIL 1.7 % (0-2.0); EOSINOPHIL 3.6 % (0-4.5); MCH 24.4 pg (25.7-33.7); MCHC 31.3 g/dl (32.0-36.0); MEAN CELL VOLUME 77.9 fl (80-96); MEAN PLT VOLUME 8.2 fl (7.5-11.1); NEUTROPHILS 69.9 % (42.8-82.8); PLATELET COUNT 341 K/MM3 (134-434); RDW 17.9 % (11.6-15.6); WHITE BLOOD COUNT 5.2 K/mm3 (4.0-10.0)
[2017-06-09 09:13] LABS: ALK PHOS 204 U/L (45-117); ANION GAP 7 (8-16); BILIRUBIN,TOTAL 0.7 mg/dL (0.2-1.0); CALCIUM 8.5 mg/dL (8.5-10.1); CO2 35 mmol/L (21-32); GLUCOSE,RANDOM 148 mg/dL (74-106); MAGNESIUM 2.3 mg/dL (1.8-2.4); SGOT/AST 27 U/L (15-37); SGPT/ALT 28 U/L (12-78); TOT PROT 6.3 g/dl (6.4-8.2)
[2017-06-09 09:32] LABS: PLATELET ESTIMATE ADEQUATE (NORMAL)
[2017-06-09] MEDS: HYDROXYUREA 500 MG CAPSULE PO SCH (10:33)
[2017-06-09] MEDS: ENOXAPARIN NA (PORCINE) 60 MG/0.6 ML DISP.SYRIN SQ SCH ×2 (10:33→21:35)
[2017-06-09] MEDS: amLODIPine BESYLATE 10 MG TABLET (FP) PO SCH (10:33)
[2017-06-09] MEDS: clonazePAM 0.5 MG TABLET PO SCH ×2 (10:33→21:06)
[2017-06-09] MEDS: CHOLECALCIFEROL (VITAMIN D3) 1,000 UNIT TABLET (FP) PO SCH (10:33)
[2017-06-09] MEDS: LACTOBACILLUS ACIDOPHILUS 1 EACH TAB (FP) PO SCH (10:33)
[2017-06-09] MEDS: LIDOCAINE 5% TOPICAL PATCH TP SCH (10:33)
[2017-06-09] MEDS: RANITIDINE HCL 150 MG TABLET (FP) PO SCH ×2 (10:33→21:06)
--- NOTE | 2017-06-09 11:39 | PN ---
Progress Note (short form) - Note Progress Note: Hematology/ Oncology progress note -Doing ok -She still has a distended abdomen and pedal edema -she is doing makeyup and seems to be in reasonable spirits Vital Signs Period Temp Pulse Resp BP Sys/Conde Pulse Ox Last 24 Hr 98.1 F-99.7 F 61-70 16-18 112-145/44-56 96 CBC, BMP 06/09/17 07:29 06/09/17 08:15 Active Medications Generic Name Dose Route Start Last Admin Trade Name Freq PRN Reason Stop Dose Admin Acetaminophen 650 mg 06/05/17 02:25 06/06/17 17:47 Tylenol - PO 650 mg Q4H PRN Administration FEVER OR PAIN Amlodipine Besylate 10 mg 06/05/17 10:00 06/09/17 10:33 Norvasc - PO 10 mg DAILY [facility] Administration Artificial Tears 1 drop 06/05/17 06:00 06/09/17 06:39 Artificial Tears OU 1 drop TID [facility] Administration Cholecalciferol 2,000 unit 06/05/17 10:00 06/09/17 10:33 Vitamin D3 - PO 2,000 unit DAILY [facility] Administration Clonazepam 0.25 mg 06/07/17 11:15 06/09/17 10:33 Klonopin - PO 0.25 mg BID [facility] Administration Enoxaparin Sodium 60 mg 06/06/17 10:00 06/09/17 10:33 Lovenox - SQ 60 mg BID [facility] Administration Furosemide 40 mg 06/10/17 10:00 Lasix Injection - IVPUSH DAILY [facility] Hydroxyurea 500 mg 06/05/17 10:00 06/09/17 10:33 Hydrea - PO 500 mg DAILY [facility] Administration Lactobacillus Acidophilus 1 tab 06/05/17 10:00 06/09/17 10:33 Bacid - PO 1 tab DAILY [facility] Administration Lidocaine 1 patch 06/05/17 10:00 06/09/17 10:33 Lidoderm Patch - TP 1 patch DAILY [facility] Administration Lidocaine/Aluminum/Magnesium/Simeth 15 ml 06/05/17 06:00 06/09/17 06:39 Magic Mouthwash *Sjr Formula* - MM Not Given Q6HPO [facility] Miscellaneous 1 each 06/05/17 22:00 06/08/17 21:23 Lidoderm Patch Removal MC 1 each DAILY@2200 [facility] Administration Ranitidine HCl 150 mg 06/05/17 10:00 06/09/17 10:33 Zantac - PO 150 mg BID [facility] Administration Sotalol HCl 40 mg 06/05/17 07:00 06/09/17 06:39 Betapace - PO 40 mg AM [facility] Administration Sotalol HCl 80 mg 06/05/17 12:00 06/08/17 12:57 Betapace - PO 80 mg DAILY@1200 [facility] Administration Sotalol HCl 120 mg 06/05/17 22:00 06/08/17 21:17 Betapace - PO 120 mg HS [facility] Administration Assessment/Plan: is well known to our service, with 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 CT chest/abdomen/pelvis reviewed. Anasarca/LE edema/Bilateral Pleural effusions: -?CHF -On IV diuretics, weight decreased -Cardiology f/u noted -CXR report reviewed, with pleural effusions, pulmonary evaluation noted Portal vein thrombosis: -on therapeutic lovenox. -pt with new splenic infarcts as was compared to CT scan 05/2017. -IR consulted, recs given to daughter as per team, but did not want any invasive measure, will c/w systemic AC PMF from ET: -c/w Hydrea 500mg daily -splenomegaly from PMF. MALToma ( parotid) -Rad Onc eval Pain from compression fracture: -was seen by Neurosurgery last admission, conservative approach preferred. -pain management consult Iron Overload: -confirmed from MRI
--- NOTE | 2017-06-09 12:38 | PN ---
Physical Exam: SUBJECTIVE: Patient seen and examined. Voices no complaints today. Interested in going to rehab for physical therapy. Feels Nix would be too intense. OBJECTIVE: Vital Signs Period Temp Pulse Resp BP Sys/Conde Pulse Ox Last 24 Hr 98.1 F-99.7 F 61-70 16-18 112-145/44-56 96 GENERAL: Awake, alert, and fully oriented, in no acute distress. Thin, frail. HEAD: Normal with no signs of trauma. EYES: Pupils equal, round and reactive to light, extraocular movements intact, sclera anicteric, conjunctiva clear. No ptosis. EARS, NOSE, THROAT: Ears normal, nares patent, oropharynx clear without exudates. Moist mucous membranes. NECK: Normal range of motion, supple without lymphadenopathy, JVD, or masses. Firm nonmobile mass noted right jawline extending from ear to neck LUNGS: Breath sounds diminished at the bases HEART: Regular rate and rhythm, normal S1 and S2 without murmur, rub or gallop. ABDOMEN: Not as distended, soft, not tender MUSCULOSKELETAL: Normal range of motion at all joints. No bony deformities or tenderness. No CVA tenderness. UPPER EXTREMITIES: 2+ pulses, warm, well-perfused. No cyanosis. No clubbing. No peripheral edema. LOWER EXTREMITIES: 2+ pulses, warm, well-perfused. No calf tenderness. Edema resolved. NEUROLOGICAL: Cranial nerves II-XII intact. Normal speech. Laboratory Results - last 24 hr 06/09/17 06/09/17 07:29 08:15 WBC 5.2 RBC 3.03 L Hgb 7.4 L Hct 23.6 L MCV 77.9 L MCH 24.4 L MCHC 31.3 L RDW 17.9 H Plt Count 341 MPV 8.2 Neutrophils % 69.9 Lymphocytes % 14.3 Monocytes % 10.5 H Eosinophils % 3.6 Basophils % 1.7 Platelet Estimate Adequate Platelet Comment No clumping noted RBC Morphology Sodium 136 Potassium 3.7 Chloride 94 L Carbon Dioxide 35 H Anion Gap 7 L BUN 18 Creatinine 1.0 D Creat Clearance w eGFR 52.69 Random Glucose 148 H D Calcium 8.5 Magnesium 2.3 D Total Bilirubin 0.7 D AST 27 ALT 28 Alkaline Phosphatase 204 H Total Protein 6.3 L Albumin 3.0 L Active Medications Generic Name Dose Route Start Last Admin Trade Name Freq PRN Reason Stop Dose Admin Acetaminophen 650 mg 06/05/17 02:25 06/06/17 17:47 Tylenol - PO 650 mg Q4H PRN Administration FEVER OR PAIN Amlodipine Besylate 10 mg 06/05/17 10:00 06/09/17 10:33 Norvasc - PO 10 mg DAILY [facility] Administration Artificial Tears 1 drop 06/05/17 06:00 06/09/17 06:39 Artificial Tears OU 1 drop TID [facility] Administration Cholecalciferol 2,000 unit 06/05/17 10:00 06/09/17 10:33 Vitamin D3 - PO 2,000 unit DAILY [facility] Administration Clonazepam 0.25 mg 06/07/17 11:15 06/09/17 10:33 Klonopin - PO 0.25 mg BID [facility] Administration Enoxaparin Sodium 60 mg 06/06/17 10:00 06/09/17 10:33 Lovenox - SQ 60 mg BID [facility] Administration Furosemide 40 mg 06/10/17 10:00 Lasix Injection - IVPUSH DAILY [facility] Hydroxyurea 500 mg 06/05/17 10:00 06/09/17 10:33 Hydrea - PO 500 mg DAILY [facility] Administration Lactobacillus Acidophilus 1 tab 06/05/17 10:00 06/09/17 10:33 Bacid - PO 1 tab DAILY [facility] Administration Lidocaine 1 patch 06/05/17 10:00 06/09/17 10:33 Lidoderm Patch - TP 1 patch DAILY [facility] Administration Lidocaine/Aluminum/Magnesium/Simeth 15 ml 06/05/17 06:00 06/09/17 06:39 Magic Mouthwash *Sjr Formula* - MM Not Given Q6HPO [facility] Miscellaneous 1 each 06/05/17 22:00 06/08/17 21:23 Lidoderm Patch Removal MC 1 each DAILY@2200 [facility] Administration Ranitidine HCl 150 mg 06/05/17 10:00 06/09/17 10:33 Zantac - PO 150 mg BID [facility] Administration Sotalol HCl 40 mg 06/05/17 07:00 06/09/17 06:39 Betapace - PO 40 mg AM [facility] Administration Sotalol HCl 80 mg 06/05/17 12:00 06/08/17 12:57 Betapace - PO 80 mg DAILY@1200 [facility] Administration Sotalol HCl 120 mg 06/05/17 22:00 06/08/17 21:17 Betapace - PO 120 mg HS [facility] Administration Imaging 05/23/17 Echo: LV function low normal, no RWMA; RV normal; LAE; trace TR; trace AI; trace PI ASSESSMENT/PLAN 86 year-old female with a PMH significant for HTN, 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 Admitted for symptomatic anemia, bilateral pleural effusions, ascites, and bilateral lower extremity edema. 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 Abdulaziz Pena, radiation oncologist; treatments will have to be held in abeyance until patient can lay flat --continue hydroxyrea Anemia --Hgb 7.4, baseline --avoid transfusion if at all possible due to iron overload Portal vein thrombus --mild ascites --continue lovenox at loser dose --discussed treatment options with Dr. Acevedo; two possible IR approaches, targeted TPA and suction thrombectomy. Both involve substantial risk of bleeding among other risks. Lengthy discussion with daughter and patient. Patient does not want to pursue these options. Splenic infarcts --seen on CT imaging --possible emboli from portal vein thrombus --heme would like to start ASA but patient states she has allergy and does not want to risk an allergic reaction Atrial fibrillation --rate well-controlled, continue sotalol --continue full dose lovenox Tucker's thyroiditis --TSH high, free T4 wnl GERD --continue zantac BID T12 compression fracture --lidocaine patch FEN Fluids: PO intake adequate Electrolytes: replete as indicated Nutrition: sodium-controlled diet DVT prophylaxis: on full dose lovenox Dispo: Patient very interested in rehab potential at SNF. DNR/DNI. Visit type - Emergency Visit Emergency Visit: Yes ED Registration Date: 06/05/17 Care time: The patient presented to the Emergency Department on the above date and was hospitalized for further evaluation of their emergent condition. - New Patient This patient is new to me today: No - Critical Care Critical Care patient: No
[2017-06-09] MEDS ORDERED: PT OWN MED DRAWER 7, Y5N ONE ×2 (13:26→20:26)
[2017-06-09] MEDS ORDERED: ACETAMINOPHEN 325 MG TABLET (FP) PO PRN (13:46)
--- NOTE | 2017-06-09 19:32 | DS ---
Physical Exam: SUBJECTIVE: Patient seen and examined. Voices no complaints today. Interested in going to rehab for physical therapy. Feels Nix would be too intense. OBJECTIVE: Vital Signs Period Temp Pulse Resp BP Sys/Conde Pulse Ox Last 24 Hr 98.1 F-99.9 F 60-70 16-22 112-145/42-56 95-96 PHYSICAL EXAM GENERAL: Awake, alert, and fully oriented, in no acute distress. Thin, frail. HEAD: Normal with no signs of trauma. EYES: Pupils equal, round and reactive to light, extraocular movements intact, sclera anicteric, conjunctiva clear. No ptosis. EARS, NOSE, THROAT: Ears normal, nares patent, oropharynx clear without exudates. Moist mucous membranes. NECK: Normal range of motion, supple without lymphadenopathy, JVD, or masses. Firm nonmobile mass noted right jawline extending from ear to neck LUNGS: Breath sounds diminished at the bases HEART: Regular rate and rhythm, normal S1 and S2 without murmur, rub or gallop. ABDOMEN: Not as distended, soft, not tender MUSCULOSKELETAL: Normal range of motion at all joints. No bony deformities or tenderness. No CVA tenderness. UPPER EXTREMITIES: 2+ pulses, warm, well-perfused. No cyanosis. No clubbing. No peripheral edema. LOWER EXTREMITIES: 2+ pulses, warm, well-perfused. No calf tenderness. Edema resolved. NEUROLOGICAL: Cranial nerves II-XII intact. Normal speech. LABS Laboratory Results - last 24 hr 06/09/17 06/09/17 07:29 08:15 WBC 5.2 RBC 3.03 L Hgb 7.4 L Hct 23.6 L MCV 77.9 L MCH 24.4 L MCHC 31.3 L RDW 17.9 H Plt Count 341 MPV 8.2 Neutrophils % 69.9 Lymphocytes % 14.3 Monocytes % 10.5 H Eosinophils % 3.6 Basophils % 1.7 Platelet Estimate Adequate Platelet Comment No clumping noted RBC Morphology Sodium 136 Potassium 3.7 Chloride 94 L Carbon Dioxide 35 H Anion Gap 7 L BUN 18 Creatinine 1.0 D Creat Clearance w eGFR 52.69 Random Glucose 148 H D Calcium 8.5 Magnesium 2.3 D Total Bilirubin 0.7 D AST 27 ALT 28 Alkaline Phosphatase 204 H Total Protein 6.3 L Albumin 3.0 L HOSPITAL COURSE: Date of Admission:06/05/17 Date of Discharge: 06/10/17 ASSESSMENT/PLAN 86 year-old female with a PMH significant for HTN, 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 Admitted from [facility] on [address] for symptomatic anemia, bilateral pleural effusions, ascites, and bilateral lower extremity edema. 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 Abdulaziz Pena, radiation oncologist; treatments will have to be held in abeyance until patient can lay flat --continue hydroxyrea Anemia --Hgb 7.4, baseline --avoid transfusion if at all possible due to iron overload Portal vein thrombus --mild ascites --continue lovenox at loser dose --discussed treatment options with Dr. Acevedo; two possible IR approaches, targeted TPA and suction thrombectomy. Both involve substantial risk of bleeding among other risks. Lengthy discussion with daughter and patient. Patient does not want to pursue these options. Splenic infarcts --seen on CT imaging --possible emboli from portal vein thrombus --heme would like to start ASA but patient states she has allergy and does not want to risk an allergic reaction Atrial fibrillation --rate well-controlled, continue sotalol --continue full dose lovenox Tucker's thyroiditis --TSH high, free T4 wnl GERD --continue zantac BID T12 compression fracture --lidocaine patch DNR/DNI. Minutes to complete discharge: 35 Discharge Summary Reason For Visit: ANEMIA ABD PAIN PORTAL VEIN THROM Current Active Problems Abdominal pain (Acute) Ascites (Acute) Compression fracture of lumbar vertebra (Acute) Depression (Acute) Essential (hemorrhagic) thrombocythemia (Acute) Ischemic colitis (Acute) Lymphoma (Acute) Peritonitis (Acute) Pleural effusion (Acute) Portal hypertension (Acute) Splenic infarct (Acute) Supratherapeutic INR (Acute) Anemia (Chronic) Anxiety (Chronic) GERD (gastroesophageal reflux disease) (Chronic) Tucker's thyroiditis (Chronic) History of Coumadin therapy (Chronic) Hydronephrosis (Chronic) Hypertension (Chronic) MALT lymphoma (Chronic) Myelodysplastic syndrome (Chronic) Myeloproliferative disease (Chronic) Portal vein thrombosis (Chronic) Condition: Stable - Instructions Diet, Activity, Other Instructions: Return to the emergency department for any new or worsening symptoms. Referrals: Abebe Noriega MD [Primary Care Provider] - Disposition: ALF FACILITY - Home Medications Comprehensive Discharge Medication List: Ambulatory Orders Amlodipine Besylate [Norvasc -] 10 mg PO DAILY #0 tablet 05/13/13 Clonazepam [Klonopin] 0.5 mg PO BID 04/21/14 Ranitidine [Zantac -] 150 mg PO BID 06/10/15 Cholecalciferol (Vitamin D3) [Vitamin D3] 2,000 unit PO DAILY 03/22/16 Epoetin Chris [Procrit] 0 unit IJ ASDIR 09/11/16 Cranberry 400 mg PO DAILY 02/21/17 Pot Sor/Hy-Ethylcel/Pvp/Hyalur [Gelclair Oral Gel Packet] 15 ml MM DAILY #1 gel.packet 05/16/17 Propylene Glycol/Peg 400 [Systane Ultra 0.4-0.3% Eye Drp] 1 drop TID #0 Acetaminophen [Tylenol .Regular Strength -] 650 mg PO Q4H PRN #30 tablet Lactobacillus Acidophilus [Acidophilus Lactobacilli] 1 each PO DAILY #30 capsule 05/29/17 Lidocaine 5% Patch [Lidoderm -] 1 patch TP DAILY #30 patch 05/29/17 Lidocaine Patch Removal [Lidoderm Patch Removal] 1 each MC DAILY@2200 #30 each 05/29/17 Mag Hydrox/Alh/Smc/Dpha/Lido [Magic Mouthwash *Sjr Formula* -] 15 ml MM Q6HPO # 1 bottle 05/29/17 Sotalol HCl [Betapace -] 40 mg PO AM #30 tablet 05/29/17 Sotalol HCl [Betapace -] 80 mg PO DAILY@1200 #30 tablet 05/29/17 Sotalol HCl [Betapace -] 120 mg PO HS #30 tablet 05/29/17 Acetaminophen [Tylenol .Regular Strength -] 650 mg PO Q4H PRN #0 tablet Enoxaparin [Lovenox -] 60 mg SQ BID #60 syr 06/09/17 Hydroxyurea [Hydrea 500Mg Capsule -] 500 mg PO DAILY #30 cap 06/09/17 This patient is new to me today: No Emergency Visit: Yes ED Registration Date: 06/05/17 Care time: The patient presented to the Emergency Department on the above date and was hospitalized for further evaluation of their emergent condition. Critical Care patient: No - Discharge Referral Referred to [facility] Med P.C[facility] No
[2017-06-09] MEDS ORDERED: SOTALOL HCL 80 MG TABLET (FP) PO SCH (22:00)
[2017-06-09] MEDS ORDERED: LIDOCAINE PATCH REMOVAL MC SCH ×2 (22:00)
[2017-06-10] MEDS ORDERED: PT OWN MED DRAWER 7, Y5N ONE ×3 (05:29→13:14)
[2017-06-10] MEDS: MAG HYDROX/ALH/SMC/DPHA/LIDO 240 ML MOUTHWASH MM SCH ×3 (05:55→13:05)
[2017-06-10] MEDS: ARTIFICIAL TEARS (POLYVINYL ALCOHOL 1.4%) OPTH DROPS OU SCH ×2 (06:17→13:18)
[2017-06-10] MEDS ORDERED: SOTALOL HCL 80 MG TABLET (FP) PO SCH ×2 (07:00→12:00)
[2017-06-10] MEDS: RANITIDINE HCL 150 MG TABLET (FP) PO SCH (09:04)
[2017-06-10] MEDS: clonazePAM 0.5 MG TABLET PO SCH (09:04)
[2017-06-10] MEDS: ENOXAPARIN NA (PORCINE) 60 MG/0.6 ML DISP.SYRIN SQ SCH (09:05)
--- NOTE | 2017-06-10 09:31 | PN ---
Physical Exam: SUBJECTIVE: Patient seen and examined. States she feels more tired today. Denies chest pain or shortness of breath. OBJECTIVE: Low grade temp 99.9F overnight, she has been running low grades since admission + blood culture on one bottle showing bacillus anthracis, will repeat blood cultures UC to be repeated since its contaminated Dry weight now 50.0777kg, will decrease Lovenox to 50mg BID Vital Signs Period Temp Pulse Resp BP Sys/Conde Pulse Ox Last 24 Hr 98.3 F-99.9 F 60-65 20-22 117-147/42-58 95 GENERAL: The patient is awake, alert, and fully oriented, in no acute distress. HEAD: Normal with no signs of trauma. EYES: PERRL, extraocular movements intact, sclera anicteric, conjunctiva clear. No ptosis. ENT: Ears normal, nares patent, oropharynx clear without exudates, moist mucous membranes. NECK: Trachea midline, full range of motion, supple. LUNGS: Breath sounds equal diminished bilaterally ABDOMEN: Soft, nontender, nondistended, normoactive bowel sounds, no guarding, no rebound, no hepatosplenomegaly, no masses. EXTREMITIES: +1 bilateral lower ext pitting edema NEUROLOGICAL: Normal speech, gait not observed. PSYCH: Normal mood, normal affect. SKIN: Warm, dry, normal turgor, no rashes or lesions noted Laboratory Results - last 24 hr 06/09/17 06/09/17 07:29 08:15 WBC 5.2 RBC 3.03 L Hgb 7.4 L Hct 23.6 L MCV 77.9 L MCH 24.4 L MCHC 31.3 L RDW 17.9 H Plt Count 341 MPV 8.2 Neutrophils % 69.9 Lymphocytes % 14.3 Monocytes % 10.5 H Eosinophils % 3.6 Basophils % 1.7 Platelet Estimate Adequate Platelet Comment No clumping noted RBC Morphology Sodium 136 Potassium 3.7 Chloride 94 L Carbon Dioxide 35 H Anion Gap 7 L BUN 18 Creatinine 1.0 D Creat Clearance w eGFR 52.69 Random Glucose 148 H D Calcium 8.5 Magnesium 2.3 D Total Bilirubin 0.7 D AST 27 ALT 28 Alkaline Phosphatase 204 H Total Protein 6.3 L Albumin 3.0 L Active Medications Generic Name Dose Route Start Last Admin Trade Name Freq PRN Reason Stop Dose Admin Acetaminophen 650 mg 06/09/17 13:46 Tylenol - PO Q4H PRN FEVER OR PAIN Amlodipine Besylate 10 mg 06/10/17 10:00 06/10/17 09:05 Norvasc - PO 10 mg DAILY MARGARITA Administration Artificial Tears 1 drop 06/09/17 14:00 06/10/17 06:17 Artificial Tears OU 1 drop TID MARGARITA Administration Cholecalciferol 2,000 unit 06/10/17 10:00 06/10/17 09:04 Vitamin D3 - PO 2,000 unit DAILY MARGARITA Administration Clonazepam 0.25 mg 06/09/17 22:00 06/10/17 09:04 Klonopin - PO 0.25 mg BID MARGARITA Administration Enoxaparin Sodium 60 mg 06/09/17 22:00 06/10/17 09:05 Lovenox - SQ 60 mg BID MARGARITA Administration Furosemide 40 mg 06/10/17 10:00 06/10/17 09:05 Lasix Injection - IVPUSH 40 mg DAILY MARGARITA Administration Hydroxyurea 500 mg 06/10/17 10:00 06/10/17 09:04 Hydrea - PO 500 mg DAILY MARGARITA Administration Lactobacillus Acidophilus 1 tab 06/10/17 10:00 06/10/17 09:04 Bacid - PO 1 tab DAILY MARGARITA Administration Lidocaine 1 patch 06/10/17 10:00 06/10/17 09:05 Lidoderm Patch - TP 1 patch DAILY MARGARITA Administration Lidocaine/Aluminum/Magnesium/Simeth 15 ml 06/09/17 18:00 06/10/17 05:55 Magic Mouthwash *Sjr Formula* - MM Not Given Q6HPO MARGARITA Miscellaneous 1 each 06/09/17 22:00 06/09/17 21:39 Lidoderm Patch Removal MC Not Given DAILY@2200 MARGARITA Miscellaneous 1 each 06/09/17 22:00 06/09/17 21:39 Lidoderm Patch Removal MC 1 each DAILY@2200 MARGARITA Administration Ranitidine HCl 150 mg 06/09/17 22:00 06/10/17 09:04 Zantac - PO 150 mg BID MARGARITA Administration Sotalol HCl 120 mg 06/09/17 22:00 06/09/17 21:05 Betapace - PO 120 mg HS MARGARITA Administration Sotalol HCl 40 mg 06/10/17 07:00 06/10/17 06:12 Betapace - PO 40 mg AM MARGARITA Administration Sotalol HCl 80 mg 06/10/17 12:00 Betapace - PO DAILY@1200 MARGARITA ASSESSMENT/PLAN: Patient is an 86 year old female with a significant past medical history of hypertension, 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 She was admitted on 06/05/2017 for symptomatic anemia, bilateral pleural effusions, ascites, and bilateral lower extremity edema. Cardiology: Acute on chronic diastolic heart failure A/P: Diuresed 27lbs in 4 days, bilateral LE edema now resolved Repeat chest xray shows persistent pleural effusions Reviewed same with pulmonary Patient to be d/c on PO Lasix 40mg BID Atrial fibrillation A/P: Rate controlled with Satalol schduled On lovenox 50mg BID Hematology: Anemia - chronic A/P: Repeat h/h stable at baseline hmg 7.7 today Continue to monitor Portal Vein Thrombosis: A/P: On Lovenox 50mg BID Pulmonary: Bilateral Pleural Effusions A/P: Chest xray shows chronic bilateral effusions Low grade temps TMAX 99.9F yestereday No WBC On home oxygen @ 2 liters PRN Lasix 40mg BID ID: + blood cultures on 1 bottle, with a rule out of Bacillus Anthracis Spoke with ID about finding, likely contaminant Repeat blood cultures Monitor off antibiotics GI: Abdominal Pain - resolved A/P: tolerating meals, no nausea or vomiting Denies abdominal pain on exam Circulatory/Muscular/Skeletal Bilateral Lower Ext Edema - resolved Disposition: Discharge to SNF for continued care/treatment. Patient refusing to go back to [facility] Visit type - Emergency Visit Emergency Visit: Yes ED Registration Date: 06/05/17 Care time: The patient presented to the Emergency Department on the above date and was hospitalized for further evaluation of their emergent condition. - New Patient This patient is new to me today: Yes Date on this admission: 06/10/17 - Critical Care Critical Care patient: No - Discharge Referral Referred to [facility] No
[2017-06-10] MEDS ORDERED: CHOLECALCIFEROL (VITAMIN D3) 1,000 UNIT TABLET (FP) PO SCH (10:00)
[2017-06-10] MEDS ORDERED: ENOXAPARIN NA (PORCINE) 60 MG/0.6 ML DISP.SYRIN SQ SCH (10:00)
[2017-06-10] MEDS ORDERED: FUROSEMIDE 40 MG/4 ML INJECTABLE VIAL IVPUSH SCH ×2 (10:00)
[2017-06-10] MEDS ORDERED: LIDOCAINE 5% TOPICAL PATCH TP SCH (10:00)
[2017-06-10] MEDS ORDERED: amLODIPine BESYLATE 10 MG TABLET (FP) PO SCH (10:00)
[2017-06-10] MEDS ORDERED: HYDROXYUREA 500 MG CAPSULE PO SCH (10:00)
[2017-06-10] MEDS ORDERED: LACTOBACILLUS ACIDOPHILUS 1 EACH TAB (FP) PO SCH (10:00)
[2017-06-10 11:55] LABS: MCH 24.5 pg (25.7-33.7); MCHC 31.2 g/dl (32.0-36.0); MEAN CELL VOLUME 78.3 fl (80-96); MEAN PLT VOLUME 8.8 fl (7.5-11.1); PLATELET COUNT 447 K/MM3 (134-434)
[2017-06-10 12:35] LABS: ANION GAP 9 (8-16); BILIRUBIN,TOTAL 0.8 mg/dL (0.2-1.0); CALCIUM 8.3 mg/dL (8.5-10.1); CO2 33 mmol/L (21-32); CREATININE 0.8 mg/dL (0.55-1.02); GLUCOSE,RANDOM 148 mg/dL (74-106); SGOT/AST 38 U/L (15-37); SGPT/ALT 34 U/L (12-78); TOT PROT 6.6 g/dl (6.4-8.2)
[2017-06-10 12:36] LABS: ALK PHOS 223 U/L (45-117)
[2017-06-10 12:41] VITALS: TEMP 98.8
[2017-06-10 12:53] LABS: PLATELET ESTIMATE ADEQUATE (NORMAL)
--- NOTE | 2017-06-10 13:51 | PN ---
Progress Note, Physician History of Present Illness: pulmonary alert,nad,feels tired - Current Medication List Current Medications: Active Medications Acetaminophen (Tylenol -) 650 mg PO Q4H PRN PRN Reason: FEVER OR PAIN Amlodipine Besylate (Norvasc -) 10 mg PO DAILY [facility] Last Admin: 06/10/17 09:05 Dose: 10 mg Artificial Tears (Artificial Tears) 1 drop OU TID [facility] Last Admin: 06/10/17 13:18 Dose: 1 drop Cholecalciferol (Vitamin D3 -) 2,000 unit PO DAILY [facility] Last Admin: 06/10/17 09:04 Dose: 2,000 unit Clonazepam (Klonopin -) 0.25 mg PO BID [facility] Last Admin: 06/10/17 09:04 Dose: 0.25 mg Enoxaparin Sodium (Lovenox -) 50 mg SQ BID [facility] Last Admin: 06/10/17 10:38 Dose: Not Given Furosemide (Lasix -) 40 mg PO BID@0600,1400 [facility] Hydroxyurea (Hydrea -) 500 mg PO DAILY [facility] Last Admin: 06/10/17 09:04 Dose: 500 mg Lactobacillus Acidophilus (Bacid -) 1 tab PO DAILY [facility] Last Admin: 06/10/17 09:04 Dose: 1 tab Lidocaine (Lidoderm Patch -) 1 patch TP DAILY [facility] Last Admin: 06/10/17 09:05 Dose: 1 patch Lidocaine/Aluminum/Magnesium/Simeth (Magic Mouthwash *Sjr Formula* -) 15 ml MM Q6HPO [facility] Last Admin: 06/10/17 13:05 Dose: Not Given Miscellaneous (Lidoderm Patch Removal) 1 each MC DAILY@2200 [facility] Last Admin: 06/09/17 21:39 Dose: Not Given Miscellaneous (Lidoderm Patch Removal) 1 each MC DAILY@2200 [facility] Last Admin: 06/09/17 21:39 Dose: 1 each Ranitidine HCl (Zantac -) 150 mg PO BID [facility] Last Admin: 06/10/17 09:04 Dose: 150 mg Sotalol HCl (Betapace -) 120 mg PO HS [facility] Last Admin: 06/09/17 21:05 Dose: 120 mg Sotalol HCl (Betapace -) 40 mg PO AM [facility] Last Admin: 06/10/17 06:12 Dose: 40 mg Sotalol HCl (Betapace -) 80 mg PO DAILY@1200 MARGARITA Last Admin: 06/10/17 13:18 Dose: 80 mg - Objective Vital Signs: Vital Signs Temperature 98.8 F 06/10/17 10:00 Pulse Rate 63 06/10/17 10:00 Respiratory Rate 20 06/10/17 10:00 Blood Pressure 143/55 06/10/17 10:00 O2 Sat by Pulse Oximetry (%) 95 06/09/17 15:00 Constitutional: Yes: Calm, Thin Eyes: Yes: WNL HENT: Yes: WNL Cardiovascular: Yes: Pulse Irregular, S1, S2 Respiratory: Yes: Diminished Gastrointestinal: Yes: Normal Bowel Sounds, Soft Extremities: Yes: WNL Edema: Yes Labs: CBC, BMP 06/10/17 10:48 06/10/17 10:48 INR, PTT INR 1.27 (0.82-1.09) H 06/06/17 05:35 Problem List - Problems (1) Abdominal pain Code(s): R10.9 - UNSPECIFIED ABDOMINAL PAIN (2) Compression fracture of lumbar vertebra Code(s): S32.000A - WEDGE COMPRESSION FRACTURE OF UNSP LUMBAR VERTEBRA, INIT (3) Lymphoma Code(s): C85.90 - NON-HODGKIN LYMPHOMA, UNSPECIFIED, UNSPECIFIED SITE (4) Pleural effusion Code(s): J90 - PLEURAL EFFUSION, NOT ELSEWHERE CLASSIFIED (5) Portal hypertension Code(s): K76.6 - PORTAL HYPERTENSION (6) Splenic infarct Code(s): D73.5 - INFARCTION OF SPLEEN (7) GERD (gastroesophageal reflux disease) Code(s): K21.9 - GASTRO-ESOPHAGEAL REFLUX DISEASE WITHOUT ESOPHAGITIS (8) Tucker's thyroiditis Code(s): E06.3 - AUTOIMMUNE THYROIDITIS (9) Hypertension Code(s): I10 - ESSENTIAL (PRIMARY) HYPERTENSION (10) MALT lymphoma Code(s): C88.4 - EXTRNOD MRGNL ZN B-CELL LYMPH OF [place]UCOS[place]-ASSOC LYMPHOID TISS (11) Myelodysplastic syndrome Code(s): D46.9 - MYELODYSPLASTIC SYNDROME, UNSPECIFIED (12) Portal vein thrombosis Code(s): I81 - PORTAL VEIN THROMBOSIS (13) A-fib Code(s): I48.91 - UNSPECIFIED ATRIAL FIBRILLATION Qualifiers: Qualified Code(s): I48.0 - Paroxysmal atrial fibrillation Assessment/Plan IMP DYSPNEA IMPROVED ACUTE ON CHRONIC CHF CLINICALLY IMPROVED BILATERAL PLEURAL EFFUSIONS SECONDARY TO ABOVE ABDOMINAL DISTENTION ANEMIA AFIB MYELODYSPLASTIC SYNDROME H/O MALT LYMPHOMA PORTAL VEIN THROMBOSIS SPLENIC INFARCTS PLAN LASIX ANTICOAGULATION O2 DAILY WTS MONITOR LYTES/CBC OOB TOLERATED DR NULL Problem List - Problems (1) Abdominal pain Code(s): R10.9 - UNSPECIFIED ABDOMINAL PAIN (2) Compression fracture of lumbar vertebra Code(s): S32.000A - WEDGE COMPRESSION FRACTURE OF UNSP LUMBAR VERTEBRA, INIT Qualifiers: Encounter type: initial encounter Fracture type: closed Qualified Code(s): S32.000A - Wedge compression fracture of unspecified lumbar vertebra, initial encounter for closed fracture (3) Lymphoma Code(s): C85.90 - NON-HODGKIN LYMPHOMA, UNSPECIFIED, UNSPECIFIED SITE (4) Pleural effusion Code(s): J90 - PLEURAL EFFUSION, NOT ELSEWHERE CLASSIFIED (5) Portal hypertension Code(s): K76.6 - PORTAL HYPERTENSION (6) Splenic infarct Code(s): D73.5 - INFARCTION OF SPLEEN (7) GERD (gastroesophageal reflux disease) Code(s): K21.9 - GASTRO-ESOPHAGEAL REFLUX DISEASE WITHOUT ESOPHAGITIS (8) Tucker's thyroiditis Code(s): E06.3 - AUTOIMMUNE THYROIDITIS (9) Hypertension Code(s): I10 - ESSENTIAL (PRIMARY) HYPERTENSION (10) MALT lymphoma Code(s): C88.4 - EXTRNOD MRGNL ZN B-CELL LYMPH OF [place]UC[place]-ASS[place] LYMPHOID TISS (11) Myelodysplastic syndrome Code(s): D46.9 - MYELODYSPLASTIC SYNDROME, UNSPECIFIED (12) Portal vein thrombosis Code(s): I81 - PORTAL VEIN THROMBOSIS (13) A-fib Code(s): I48.91 - UNSPECIFIED ATRIAL FIBRILLATION Qualifiers: Atrial fibrillation type: paroxysmal Qualified Code(s): I48.0 - Paroxysmal atrial fibrillation
[2017-06-10] MEDS ORDERED: FUROSEMIDE 40 MG TABLET (FP) PO SCH ×3 (14:00→18:00)
--- NOTE | 2017-06-10 16:21 | PN ---
Progress Note (short form) - Note Progress Note: Patient seen and examined. she feels tired. Her micro results: reviewed. O/E: General: in bed today HEENT: NC AT Cardiac: RRR Lungs: Decreased breath sounds bilaterally Abdomen: Soft today, BS+ LE: edema mild. Last Vital Signs Temp Pulse Resp BP Pulse Ox 98.8 F 62 20 123/48 95 06/10/17 14:22 06/10/17 14:22 06/10/17 14:22 06/10/17 14:22 06/09/17 15:00 CBC, BMP 06/10/17 10:48 06/10/17 10:48 Current Medications Generic Name Dose Route Start Last Admin Trade Name Freq PRN Reason Stop Dose Admin Acetaminophen 650 mg 06/09/17 13:46 06/10/17 15:48 Tylenol - PO 650 mg Q4H PRN Administration FEVER OR PAIN Amlodipine Besylate 10 mg 06/10/17 10:00 06/10/17 09:05 Norvasc - PO 10 mg DAILY MARGARITA Administration Artificial Tears 1 drop 06/09/17 14:00 06/10/17 13:18 Artificial Tears OU 1 drop TID MARGARITA Administration Cholecalciferol 2,000 unit 06/10/17 10:00 06/10/17 09:04 Vitamin D3 - PO 2,000 unit DAILY MARGARITA Administration Clonazepam 0.25 mg 06/09/17 22:00 06/10/17 09:04 Klonopin - PO 0.25 mg BID MARGARITA Administration Enoxaparin Sodium 50 mg 06/10/17 10:00 06/10/17 10:38 Lovenox - SQ Not Given BID MARGARITA Furosemide 40 mg 06/10/17 18:00 Lasix - PO BID@0600,1400 MARGARITA Hydroxyurea 500 mg 06/10/17 10:00 06/10/17 09:04 Hydrea - PO 500 mg DAILY MARGARITA Administration Lactobacillus Acidophilus 1 tab 06/10/17 10:00 06/10/17 09:04 Bacid - PO 1 tab DAILY MARGARITA Administration Lidocaine 1 patch 06/10/17 10:00 06/10/17 09:05 Lidoderm Patch - TP 1 patch DAILY MARGARITA Administration Lidocaine/Aluminum/Magnesium/Simeth 15 ml 06/09/17 18:00 06/10/17 13:05 Magic Mouthwash *Sjr Formula* - MM Not Given Q6HPO MARGARITA Miscellaneous 1 each 06/09/17 22:00 06/09/17 21:39 Lidoderm Patch Removal MC Not Given DAILY@2200 MARGARITA Miscellaneous 1 each 06/09/17 22:00 06/09/17 21:39 Lidoderm Patch Removal MC 1 each DAILY@2200 MARGARITA Administration Ranitidine HCl 150 mg 06/09/17 22:00 06/10/17 09:04 Zantac - PO 150 mg BID MARGARITA Administration Sotalol HCl 120 mg 06/09/17 22:00 06/09/17 21:05 Betapace - PO 120 mg HS MARGARITA Administration Sotalol HCl 40 mg 06/10/17 07:00 06/10/17 06:12 Betapace - PO 40 mg AM MARGARITA Administration Sotalol HCl 80 mg 06/10/17 12:00 06/10/17 13:18 Betapace - PO 80 mg DAILY@1200 MARGARITA Administration Assessment/Plan: is well known to our service, with 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 CT chest/abdomen/pelvis reviewed. Anasarca/LE edema/Bilateral Pleural effusions: -improving -on PO diuretics. Portal vein thrombosis: -on therapeutic lovenox. -pt with new splenic infarcts as was compared to CT scan 05/2017. -IR consulted, recs given to daughter as per team, but did not want any invasive measure, will c/w systemic AC PMF from ET: -c/w Hydrea 500mg daily -splenomegaly from PMF. -will decided about procrit as an OP. MALToma ( parotid) -appreciate Dr.Del An's eval -hard to continue if she could not lie flat. Pain from compression fracture: -was seen by Neurosurgery last admission, conservative approach preferred. -pt, not willing to try any narcotics, though she is in pain at the back -she would just prefer to take tylenol Iron Overload: -confirmed from MRI -?out patient chelation Paroxysmal AC: -on systemic a/c Blood cx Positive: -repeat sent, spoke to hopsitalist, mentioned that its likely a contaminant and she will follow-up the repeat cultures. Pt will follow-up in our office this week as she is being discharged today, should be discharged with bid dosing of Lovenox and Hydrea 500mg daily I discussed this with RN of the patient and also with daughter Farhan.
[2017-06-10 18:37] VITALS: BP 121/71; PULSE 60
--- NOTE | 2017-06-14 15:24 | HOSP ---
Physical Examination Vital Signs: Vital Signs Temperature 98.8 F 06/10/17 18:00 Pulse Rate 60 06/10/17 18:00 Respiratory Rate 20 06/10/17 18:00 Blood Pressure 121/71 06/10/17 18:00 O2 Sat by Pulse Oximetry (%) 95 06/09/17 15:00 Labs: CBC, BMP 06/10/17 10:48 06/10/17 10:48 Hospitalist Encounter Assessment: Received call from laborer plumbing reporting positive urine culture with +klebsiella and +pseudomonas Braid Maker notified ID regarding finding As per ID (Dr. Leija), will not treat patient since Klebsiella colony is <20 ,000-30,000 and pseudomonas colony <10,000
== END 2017-06-10 18:43 | DRG 291 ==
LOC: JER 21:11 → SUPCPDRO 21:11 → JERBED 06-05 02:16 → J4W 06-05 05:39 → J7W 06-09 13:41
PROVIDERS: ADMIT Internal Medicine; ATTEND Nurse Practitioner Family
DX: I11.0 Hypertensive heart disease with heart failure (principal); I81 Portal vein thrombosis; D69.3 Immune thrombocytopenic purpura; D75.81 Myelofibrosis; C88.4 Extranodal marginal zone B-cell lymphoma of mucosa-associated lymphoid tissue [MALT-lymphoma]; M48.54XA Collapsed vertebra, not elsewhere classified, thoracic region, initial encounter for fracture; R18.8 Other ascites; I50.33 Acute on chronic diastolic (congestive) heart failure; K21.9 Gastro-esophageal reflux disease without esophagitis; D64.9 Anemia, unspecified; E87.6 Hypokalemia; I48.0 Paroxysmal atrial fibrillation; E06.3 Autoimmune thyroiditis
CPT/HCPCS: 36415; 71010-TC; 71250-TC; 74176-TC; 80048; 80053; 83605; 83690; 83735; 83880; 84100; 84439; 84443; 84484; 85025; 85027; 85610; 86850; 86900; 86901; 87040; 87086; 87186; 93005; 93010; 97116-GP; 97161-GP; 99284-25; J8999

== ENCOUNTER 2017-06-19 11:26 | Day surgery (SDC) | payer OTHER, MEDICARE ==
[2017-06-19 12:00] LABS: MCH 24.5 pg (25.7-33.7); MCHC 31.3 g/dl (32.0-36.0); MEAN CELL VOLUME 78.4 fl (80-96); MEAN PLT VOLUME 8.3 fl (7.5-11.1); PLATELET COUNT 482 K/MM3 (134-434); RDW 19.1 % (11.6-15.6); WHITE BLOOD COUNT 7.8 K/mm3 (4.0-10.0)
[2017-06-19 13:15] LABS: ANISOCYTOSIS 3+; MACROCYTOSIS 1+; MICROCYTOSIS 2+; TARGET CELLS 1+
[2017-06-19 13:16] LABS: TEAR DROP CELLS 3+
--- NOTE | 2017-06-19 15:04 | HP ---
[facility] - Chief Complaint History of Present Illness: is here for blood transfusion, Pt with h/ o ET secondary PMF from ET, Portal vein thrombosis on AC. Pt seen and examined. She feels OK, except for some tiredness. doing good at the rehab. History Source: Patient, Medical Record - Past Medical History Allergies/Adverse Reactions: Allergies Allergy/AdvReac Type Severity Reaction Status Date / Time propoxyphene napsylate Allergy Severe Swelling Verified 06/04/17 21:22 [From Darvocet-N 100] aspirin Allergy Difficulty Verified 06/04/17 21:22 Breathing Cardiovascular: Yes: AFIB, HTN, Other (Mitral Valve Prolapse) Gastrointestinal: Yes: GERD Heme/Onc: Yes: Anemia, Myeloproliferative Synd ENT: Yes: Allergic Rhinitis, Sinusitis Endocrine: Yes: Other ([place] thyroiditis) - Current Medications Current Medications: Home Medications Medication Instructions Recorded Amlodipine Besylate [Norvasc -] 10 mg PO DAILY #0 tablet 05/13/13 Clonazepam [Klonopin] 0.5 mg PO BID 04/21/14 Ranitidine [Zantac -] 150 mg PO BID 06/10/15 Cholecalciferol (Vitamin D3) 2,000 unit PO DAILY 03/22/16 [Vitamin D3] Epoetin Chris [Procrit] 0 unit IJ ASDIR 09/11/16 Cranberry 400 mg PO DAILY 02/21/17 Pot Sor/Hy-Ethylcel/Pvp/Hyalur 15 ml MM DAILY #1 gel.packet 05/16/17 [Gelclair Oral Gel Packet] Propylene Glycol/Peg 400 [Systane 1 drop TID #0 05/18/17 Ultra 0.4-0.3% Eye Drp] Acetaminophen [Tylenol .Regular 650 mg PO Q4H PRN #30 tablet 05/29/17 Strength -] Lactobacillus Acidophilus 1 each PO DAILY #30 capsule 05/29/17 [Acidophilus Lactobacilli] Lidocaine 5% Patch [Lidoderm -] 1 patch TP DAILY #30 patch 05/29/17 Lidocaine Patch Removal [Lidoderm 1 each MC DAILY@2200 #30 each 05/29/17 Patch Removal] Mag Hydrox/Alh/Smc/Dpha/Lido 15 ml MM Q6HPO #1 bottle 05/29/17 [Magic Mouthwash *Sjr Formula* -] Sotalol HCl [Betapace -] 40 mg PO AM #30 tablet 05/29/17 Sotalol HCl [Betapace -] 80 mg PO DAILY@1200 #30 tablet 05/29/17 Sotalol HCl [Betapace -] 120 mg PO HS #30 tablet 05/29/17 Acetaminophen [Tylenol .Regular 650 mg PO Q4H PRN #0 tablet 06/09/17 Strength -] Hydroxyurea [Hydrea 500Mg Capsule 500 mg PO DAILY #30 cap 06/09/17 -] Enoxaparin [Lovenox -] 50 mg SQ BID #60 syringe 06/10/17 Furosemide [Lasix -] 40 mg PO BID@0600,1400 tablet 06/10/17 Satellite Physical Exam - Physical Examination General Appearance: Well Nourished, Well Developed ENT: No Discharge, No masses Lung: Clear to auscultation Heart: Regular rate & rhythm, Normal S1 Breasts: Soft, Non-Tender Satellite Impression/Plan - Impression/Plan Impression: pt with MPD, here for one unit of transfusion of PRBC . will give one unit. follow up in office.
[2017-06-19 18:54] LABS: MCH 25.6 pg (25.7-33.7); MCHC 32.6 g/dl (32.0-36.0); MEAN CELL VOLUME 78.6 fl (80-96); MEAN PLT VOLUME 8.1 fl (7.5-11.1); PLATELET COUNT 400 K/MM3 (134-434); RDW 18.6 % (11.6-15.6); WHITE BLOOD COUNT 5.9 K/mm3 (4.0-10.0)
[2017-06-19] MEDS: clonazePAM 0.5 MG TABLET PO SCH (21:40)
[2017-06-19] MEDS: ENOXAPARIN NA (PORCINE) 60 MG/0.6 ML DISP.SYRIN SQ SCH (21:40)
[2017-06-19] MEDS ORDERED: SOTALOL HCL 80 MG TABLET (FP) PO SCH (22:00)
[2017-06-20] MEDS ORDERED: FUROSEMIDE 40 MG TABLET (FP) PO SCH (06:00)
[2017-06-20 07:59] LABS: MCH 25.7 pg (25.7-33.7); MCHC 32.6 g/dl (32.0-36.0); MEAN CELL VOLUME 78.7 fl (80-96); MEAN PLT VOLUME 8.5 fl (7.5-11.1); PLATELET COUNT 380 K/MM3 (134-434); RDW 18.1 % (11.6-15.6)
[2017-06-20 08:26] LABS: ALBUMIN 3.3 g/dl (3.4-5.0); ALK PHOS 210 U/L (45-117); ANION GAP 7 (8-16); BILIRUBIN,TOTAL 0.9 mg/dL (0.2-1.0); CALCIUM 8.6 mg/dL (8.5-10.1); CO2 31 mmol/L (21-32); CREATININE 0.8 mg/dL (0.55-1.02); GLUCOSE,RANDOM 86 mg/dL (74-106); SGOT/AST 39 U/L (15-37); SGPT/ALT 48 U/L (12-78); TOT PROT 6.7 g/dl (6.4-8.2)
[2017-06-20] MEDS ORDERED: PT OWN MED DRAWER 7, Y5N ONE (09:18)
[2017-06-20] MEDS: ENOXAPARIN NA (PORCINE) 60 MG/0.6 ML DISP.SYRIN SQ SCH (09:20)
[2017-06-20] MEDS: clonazePAM 0.5 MG TABLET PO SCH ×2 (09:20→09:24)
[2017-06-20] MEDS ORDERED: SOTALOL HCL 80 MG TABLET (FP) PO ONE (10:10)
[2017-06-20 13:47] VITALS: BP 132/58; PULSE 65; TEMP 97.9
== END 2017-06-20 10:30 | disposition home or self-care (01) ==
LOC: JONCBLOOD 11:26 → J7W 11:27 → JONCBLOOD 06-20 10:30
PROVIDERS: ATTEND Internal Medicine Hematology & Oncology
PROC: 30233N1 Transfusion of Nonautologous Red Blood Cells into Peripheral Vein, Percutaneous Approach (ICD-10-PCS; principal; 2017-06-19)
PROC: 3E013GC Introduction of Other Therapeutic Substance into Subcutaneous Tissue, Percutaneous Approach (ICD-10-PCS; 2017-06-19)
DX: C88.4 Extranodal marginal zone B-cell lymphoma of mucosa-associated lymphoid tissue [MALT-lymphoma] (principal); C94.6 Myelodysplastic disease, not elsewhere classified; I48.91 Unspecified atrial fibrillation; I10 Essential (primary) hypertension; I34.1 Nonrheumatic mitral (valve) prolapse; D64.9 Anemia, unspecified; J30.2 Other seasonal allergic rhinitis; Z88.6 Allergy status to analgesic agent
CPT/HCPCS: 36415; 36430; 80053; 85027; 86850; 86900; 86901; 86922; P9038; P9058

== ENCOUNTER 2017-08-11 07:42 | Inpatient (IN) | payer OTHER, MEDICARE ==
--- NOTE | 2017-08-11 08:08 | PDOC ---
History of Present Illness - General Chief Complaint: Back Pain Stated Complaint: LOWER BACK PAIN Time Seen by Provider: 08/11/17 07:53 History Source: Patient - History of Present Illness Initial Comments: 08/11/17 08:06 CC: 4-5 h/o LBP Patient is an 86 y.o. female with a PMH of HTN, Lymphoma, MVP (s/p replacement) , Atrial Fibrillation, Thrombocytopenia, Tucker's Disease, CERD and Myelofibrosis who presents with a c/o B/L "throbbing" back pain. Patient and patient's daughter at bedside note h/o of recent T12 compression fracture in for which patient spent 1 month in rehabilitation. Patient states she was at home sitting when she the throbbing pain started on her R low back and subsequently spread to her L side. Patient denies bladder, bowel incontinence as well as numbness, tingling, tremors or any loss of sensation. Surgical: MV replacement, appendectomy Social: denies cigarettes, denies alcohol, denies recreation drug use Allergies: propoxyphene napsylate, aspirin, also reports uncomfortably psychological sensation w/ Dilaudid - no throat swelling, shortness of breath, hives PMD: Dr. Barrios Past History - Past Medical History Allergies/Adverse Reactions: Allergies Allergy/AdvReac Type Severity Reaction Status Date / Time propoxyphene napsylate Allergy Severe Swelling Verified 08/11/17 08:32 [From Darvocet-N 100] aspirin Allergy Difficulty Verified 08/11/17 08:32 Breathing hydromorphone HCl Allergy Verified 08/11/17 08:32 [From Dilaudid] Home Medications: Ambulatory Orders Amlodipine Besylate [Norvasc -] 10 mg PO DAILY #0 tablet 05/13/13 Clonazepam [Klonopin] 0.25 mg PO TID 04/21/14 Ranitidine [Zantac -] 150 mg PO DAILY 06/10/15 Cholecalciferol (Vitamin D3) [Vitamin D3] 2,000 unit PO DAILY 03/22/16 Epoetin Chris [Procrit] 0 unit IJ ASDIR 09/11/16 Acetaminophen [Tylenol .Regular Strength -] 650 mg PO Q4H PRN #0 tablet Hydroxyurea [Hydrea 500Mg Capsule -] 500 mg PO DAILY #30 cap 06/09/17 Furosemide [Lasix -] 40 mg PO BID@0600,1400 tablet 06/10/17 Enoxaparin [Lovenox -] 80 mg SQ BID 08/11/17 Lactobacillus Acidophilus [Probiotic] 1 each PO DAILY 08/11/17 Lidocaine 5% Patch 1 patch TP DAILY 08/11/17 Propylene Glycol/Peg 400 [Systane Ultra 0.4-0.3% Eye Drp] 1 drop OP DAILY Sotalol HCl [Betapace -] 120 mg PO BID 08/11/17 Anemia: Yes (HIGH PLATELETS,freq transfusions) Asthma: No Cancer: Yes (lymphomia) Cardiac Disorders: Yes (AFIB, mvp) CVA: No COPD: No CHF: No Dementia: No Diabetes: No GI Disorders: Yes (esophageal reflux, ulcer) Disorders: No HTN: Yes Hypercholesterolemia: No Liver Disease: No Seizures: No Thyroid Disease: No (Tucker's) - Surgical History Abdominal Surgery: Yes (BOTH OVARIES) Appendectomy: Yes Cardiac Surgery: Yes (Mitral Valve) Cholecystectomy: No Lung Surgery: No Neurologic Surgery: No Orthopedic Surgery: No - Immunization History Td Vaccination: Yes Immunization Up to Date: Yes - Suicide/Smoking/Psychosocial Hx Smoking Status: No Smoking History: Former smoker Years of Tobacco Use: 0 Have you smoked in the past 12 months: No Number of Cigarettes Smoked Daily: 2 If you are a former smoker, when did you quit?: 60 years ago Cigars Per Day: 0 'Breaking Loose' booklet given: 03/28/12 Hx Alcohol Use: No Drug/Substance Use Hx: No Substance Use Type: None Hx Substance Use Treatment: No Review of Systems - Review of Systems Constitutional: No: Chills, Fever Cardiac (ROS): No: Chest Pain ABD/GI: Yes: Constipated. No: Diarrhea, Nausea, Vomiting : No: Burning, Dysuria, Incontinence Musculoskeletal: Yes: Back Pain, Muscle Pain All Other Systems: Reviewed and Negative *Physical Exam - Physical Exam General Appearance: Yes: Nourished, Thin Neck: positive: Trachea midline, Supple Respiratory/Chest: positive: Lungs Clear, Normal Breath Sounds Cardiovascular: positive: Regular Rhythm, Regular Rate, S1, S2 Gastrointestinal/Abdominal: positive: Flat, Soft Musculoskeletal: positive: Normal Inspection, Other (Lumbar Paraspinal TTP R > L ; Sacral TTP). negative: CVA Tenderness (R), CVA Tenderness (L) Integumentary: positive: Normal Color, Dry, Other (B/L LE xerostosis) Neurologic: positive: Fully Oriented, Alert Deep Tendon Reflexes: Knee (L): 2+, Knee (R): 2+ ED Treatment Course - LABORATORY CBC & Chemistry Diagram: 08/11/17 08:38 08/11/17 08:38 Medical Decision Making - Medical Decision Making 08/11/17 09:51 Patient is a 86 y.o. female who presents with lower back pain; patient is s/p T 12 compression fracture in May 2017. PLAN: 1. CBC, CMP, UA to rule out infectious cause including UTI 2. Thoracic & Lumbar spine CT 08/11/17 12:[address] notes burst fracture @ T12. Patient does not display any neurological deficit, however PVD shows > 300 mL. Neurosurgical consult, Dr. Liborio Chou, recommends MRI for evaluation of possible cauda equina syndrome. Patient admitted to inpatient medicine service under Dr. Aggie Barry. *DC/Admit/Observation/Transfer Diagnosis at time of Disposition: Cauda equina syndrome - Discharge Dispostion Condition at time of disposition: Fair Admit: No - Referrals - Patient Instructions
--- NOTE | 2017-08-11 08:20 | PDOC ---
Attending Attestation - Medical Decision Making 08/11/17 12:41 Dr. Blas was paged a third time via phone answering service requesting a call back at 12:35 08/11/17 13:58 Dr. Lawton was called at thsi time and the patient's case was discussed. <Nery Pederson - Last Filed: 08/11/17 13:58> - Resident Resident Name: Shaan Florica - ED Attending Attestation I have performed the following: I have examined & evaluated the patient, The case was reviewed & discussed with the resident, I agree w/resident's findings & plan, Exceptions are as noted - HPI HPI: 08/11/17 08:20 86yo F hx HTN, lymphoma, al's, GERD, thrombocytopenia, portal vein thrombosis p/w 5 days of LBP. Pt had a T12 compression fracture 4 months ago, was in rehab for 4 months for the fracture, felt better after labor day. Denies trauma, she does not know why the pain began again. Denies LE weakness or numbness. No urinary/bladder retention or incontinence. Took a motrin for the pain but it did not help. Denies abd pain, weakness, dysuria, frequency, urgency , fevers, chills. Denies heavy lifting. Denies CP/SOB. - Physicial Exam PE: 08/11/17 08:36 GENERAL: Awake, alert, and fully oriented, in no acute distress HEAD: No signs of trauma EYES: PERRLA, EOMI, sclera anicteric, conjunctiva clear ENT: Auricles normal inspection, hearing grossly normal, nares patent, oropharynx clear without exudates. Moist mucosa NECK: Normal ROM, supple, no lymphadenopathy, JVD, or masses LUNGS: Breath sounds equal, clear to auscultation bilaterally. No wheezes, and no crackles HEART: Regular rate and rhythm, normal S1 and S2, no murmurs, rubs or gallops ABDOMEN: Soft, nontender, normoactive bowel sounds. No guarding, no rebound. No masses EXTREMITIES: Normal range of motion, no edema. No clubbing or cyanosis. No cords, erythema, or tenderness BACK: no cervical, thoracic, lumbar midline ttp. +paraspinal thoracolumbar ttp NEUROLOGICAL: Normal speech, cranial nerves intact, negative pronator drift, 5/ 5 strength in all 4 extremities, normal sensation to light touch in all 4 extremities, normal cerebellar exam, normal gait, normal reflexes and tone SKIN: Warm, Dry, normal turgor, no rashes or lesions noted. - Medical Decision Making 08/11/17 08:42 86-year-old female with multiple medical problems and a recent T12 compression fracture presents with recurrent pain in her drastic and sacral spine. Patient denies any trauma. Blood pressure is little bit elevated but vitals are otherwise unremarkable. Exam with paraspinal tenderness to palpation. Differential includes but is not limited to muscular pain versus UTI versus renal colic. Plan: -labs -UA -CT -pain control -reassess 08/11/17 14:34 CT with burst fracture and full bladder. Pt's PVR approximately 350cc concerning for urinary retention. NSG c/s, recommends MRI. Dr. Chou on his way in to see the patient. Will admit pt for further management <Wellington Chávez - Last Filed: 08/11/17 14:35>
[2017-08-11] MEDS ORDERED: ACETAMINOPHEN 1000 MG/100 ML VIAL (NON FORMULARY) IVPB ONE (08:37)
[2017-08-11] MEDS ORDERED: ACETAMINOPHEN INJECTION 100 ML IVPB ONE (09:06)
[2017-08-11 09:11] LABS: BASOPHIL 0.8 % (0-2.0); EOSINOPHIL 3.3 % (0-4.5); MCH 24.9 pg (25.7-33.7); MCHC 31.5 g/dl (32.0-36.0); MEAN CELL VOLUME 78.9 fl (80-96); MEAN PLT VOLUME 8.2 fl (7.5-11.1); NEUTROPHILS 75.2 % (42.8-82.8); PLATELET COUNT 547 K/MM3 (134-434); RDW 17.6 % (11.6-15.6); WHITE BLOOD COUNT 8.3 K/mm3 (4.0-10.0)
[2017-08-11 09:30] LABS: ALBUMIN 4.1 g/dl (3.4-5.0); ALK PHOS 135 U/L (45-117); ANION GAP 6 (8-16); BILIRUBIN,TOTAL 0.9 mg/dL (0.2-1.0); CALCIUM 9.4 mg/dL (8.5-10.1); CO2 29 mmol/L (21-32); CREATININE 0.9 mg/dL (0.55-1.02); GLUCOSE,RANDOM 101 mg/dL (74-106); SGPT/ALT 34 U/L (12-78); TOT PROT 7.9 g/dl (6.4-8.2)
[2017-08-11 09:35] LABS: SGOT/AST 54 U/L (15-37)
[2017-08-11] MEDS ORDERED: CYCLOBENZAPRINE HCL 10 MG TABLET (FP) ONE ×2 (09:37→11:43)
[2017-08-11 09:49] LABS: URINE APPEARANCE CLEAR; URINE BILIRUBIN NEGATIVE (NEGATIVE); URINE BLOOD NEGATIVE (NEGATIVE); URINE COLOR STRAW; URINE GLUCOSE (UA) NEGATIVE (NEGATIVE); URINE KETONE NEGATIVE (NEGATIVE); URINE NITRITE NEGATIVE (NEGATIVE); URINE PROTEIN NEGATIVE (NEGATIVE); URINE UROBILINOGEN NEGATIVE mg/dL (0.2-1.0)
[2017-08-11] MEDS ORDERED: CYCLOBENZAPRINE HCL 5 MG TABLET PO SCH ×2 (10:00→11:16)
[2017-08-11] MEDS ORDERED: SODIUM CHLORIDE 500 ML IV STA (11:37)
[2017-08-11] MEDS ORDERED: CYCLOBENZAPRINE HCL 10 MG TABLET (FP) PO ONE (11:38)
[2017-08-11] MEDS: ENOXAPARIN NA (PORCINE) 80 MG/0.8 ML DISP.SYRIN SQ SCH (12:01)
[2017-08-11] MEDS ORDERED: traMADol HCL 50 MG TABLET PO ONE (15:17)
[2017-08-11] MEDS ORDERED: traMADol HCL 50 MG TABLET ONE (15:18)
[2017-08-11 15:24] LABS: URINE LEUK ESTERASE TRACE (NEGATIVE)
[2017-08-11 15:34] LABS: URINE BACTERIA FEW /hpf (NEGATIVE); URINE RBC 0-3 /hpf (0-3); URINE WBC 0-3 /hpf (3-5)
--- NOTE | 2017-08-11 15:59 | HP ---
CHIEF COMPLAINT: sever lower back pain PCP: Cardio - Dr. Loaiza; Heme - Dr. Grove; Urology - Dr. Bella; Rad/onc - Dr. Bernabe HISTORY OF PRESENT ILLNESS: Patient is an 86 y.o. female with a PMH of HTN, MALT Lymphoma, Atrial Fibrillation, Thrombocytosis, Al's Disease, GERD and Myelofibrosis who presents with a c/o B/L "throbbing" back pain. Patient and patient's daughter at bedside note h/o of recent T12 compression fracture in 05/20 for which patient spent 4 month in rehabilitation. Patient states she was at home sitting when she the throbbing pain started on her R low back 08/13 non radiating. Patient denies LE weakness, numbness, tingling, tremors or any loss of sensation. No urinary/bladder retention or incontinence but reports that she had to go multiple times to urinate with little amount of urine comes out . Took a Motrin for the pain but it did not help. Denies abd pain, dysuria, frequency, urgency, fevers, chills. Denies heavy lifting or trauma. Denies CP/ SOB. ER course was notable for: (1) CT lumbar and thorasic (2) Cardio - Dr. Loaiza; Heme - Dr. Grove; Urology - Dr. Bella; Rad/ onc - Dr. Bernabe (3) Bladder scan >350 CC urinary retension Recent Travel: denies PAST MEDICAL HISTORY: HTN, Lymphoma, MVP, Atrial Fibrillation, Thrombocytopenia, Al's Disease, Gerd and Myelofibrosis PAST SURGICAL HISTORY: Appendectomy , ovaries removal, cataract, lower lip cancer , tonsillectomy Social History: Smokin/2 pack as a teen age Alcohol:denies Drugs: denies Family History: Allergies propoxyphene napsylate [From Darvocet-N 100] Allergy (Severe, Verified 08/11/17 08:32) Swelling aspirin Allergy (Verified 08/11/17 08:32) Difficulty Breathing hydromorphone HCl [From Dilaudid] Allergy (Verified 08/11/17 08:32) HOME MEDICATIONS: Home Medications Medication Instructions Recorded Amlodipine Besylate [Norvasc -] 10 mg PO DAILY #0 tablet 05/13/13 Clonazepam [Klonopin] 0.25 mg PO TID 04/21/14 Ranitidine [Zantac -] 150 mg PO DAILY 06/10/15 Cholecalciferol (Vitamin D3) 2,000 unit PO DAILY 03/22/16 [Vitamin D3] Epoetin Chris [Procrit] 0 unit IJ ASDIR 09/11/16 Acetaminophen [Tylenol .Regular 650 mg PO Q4H PRN #0 tablet 06/09/17 Strength -] Hydroxyurea [Hydrea 500Mg Capsule 500 mg PO DAILY #30 cap 06/09/17 -] Furosemide [Lasix -] 40 mg PO BID@0600,1400 tablet 06/10/17 Enoxaparin [Lovenox -] 80 mg SQ BID 08/11/17 Lactobacillus Acidophilus 1 each PO DAILY 08/11/17 [Probiotic] Lidocaine 5% Patch 1 patch TP DAILY 08/11/17 Propylene Glycol/Peg 400 [Systane 1 drop OP DAILY 08/11/17 Ultra 0.4-0.3% Eye Drp] Sotalol HCl [Betapace -] 120 mg PO BID 08/11/17 REVIEW OF SYSTEMS CONSTITUTIONAL: Absent: fever, chills, diaphoresis, generalized weakness, malaise, loss of appetite, weight change HEENT: Absent: rhinorrhea, nasal congestion, throat pain, throat swelling, difficulty swallowing, mouth swelling, ear pain, eye pain, visual changes CARDIOVASCULAR: Absent: chest pain, syncope, palpitations, irregular heart rate, lightheadedness , peripheral edema RESPIRATORY: Absent: cough, shortness of breath, dyspnea with exertion, orthopnea, wheezing, stridor, hemoptysis GASTROINTESTINAL: Absent: abdominal pain, abdominal distension, nausea, vomiting, diarrhea, constipation, melena, hematochezia GENITOURINARY: Absent: dysuria, frequency, urgency, hesitancy, hematuria, flank pain, genital pain MUSCULOSKELETAL: Absent: myalgia, arthralgia, joint swelling, back pain, neck pain SKIN: Absent: rash, itching, pallor HEMATOLOGIC/IMMUNOLOGIC: Absent: easy bleeding, easy bruising, lymphadenopathy, frequent infections ENDOCRINE: Absent: unexplained weight gain, unexplained weight loss, heat intolerance, cold intolerance NEUROLOGIC: Absent: headache, focal weakness or paresthesias, dizziness, unsteady gait, seizure, mental status changes, bladder or bowel incontinence PSYCHIATRIC: Absent: anxiety, depression, suicidal or homicidal ideation, hallucinations. PHYSICAL EXAMINATION Vital Signs - 24 hr 08/11/17 08/11/17 08:02 11:51 Temperature 97.5 F L 97.8 F Pulse Rate 53 L Pulse Rate [ 50 L Left Apical] Respiratory 18 16 Rate Blood Pressure 160/51 Blood Pressure 126/70 [Left Arm] O2 Sat by Pulse 100 98 Oximetry (%) GENERAL: Awake, alert, and fully oriented, in mild distress. HEAD: Normal with no signs of trauma. EYES: Pupils equal, round and reactive to light, sclera anicteric, conjunctiva clear. No lid lag. EARS, NOSE, THROAT: Moist mucous membranes. NECK: Normal range of motion, supple without lymphadenopathy, JVD, or masses. LUNGS: Breath sounds equal, clear to auscultation bilaterally. No wheezes, and no crackles. No accessory muscle use. HEART: Regular rate and rhythm, normal S1 and S2 without murmur, rub or gallop. ABDOMEN: Soft, nontender, distended, normoactive bowel sounds, no guarding, no rebound, MUSCULOSKELETAL: Normal range of motion at all joints. No bony deformities or tenderness. No CVA tenderness. UPPER EXTREMITIES: 2+ pulses, warm, well-perfused. No cyanosis. No clubbing. No peripheral edema. 5/5 LE strength. +pt unable to sit forward or lean forward due to pain. LOWER EXTREMITIES: 2+ pulses, warm, well-perfused. No calf tenderness. +1 peripheral edema. strength 5/5 , normal reflexes, NEUROLOGICAL: sensation intact in upper and lower ext. Normal speech. Gait not observed PSYCHIATRIC: Cooperative. Good eye contact. Appropriate mood and affect. SKIN: Warm, dry, no rashes or lesions noted, normal capillary refill. Laboratory Results - last 24 hr 08/11/17 08/11/17 08/11/17 08:38 08:38 08:46 WBC 8.3 D RBC 3.50 L Hgb 8.7 L Hct 27.6 L MCV 78.9 L MCH 24.9 L MCHC 31.5 L RDW 17.6 H Plt Count 547 H D MPV 8.2 Neutrophils % 75.2 Lymphocytes % 11.9 Monocytes % 8.8 Eosinophils % 3.3 D Basophils % 0.8 Sodium 131 L Potassium 5.1 D Chloride 96 L Carbon Dioxide 29 Anion Gap 6 L BUN 30 H Creatinine 0.9 Creat Clearance w eGFR 59.51 Random Glucose 101 Calcium 9.4 Total Bilirubin 0.9 AST 54 H D ALT 34 D Alkaline Phosphatase 135 H D Total Protein 7.9 Albumin 4.1 D Urine Color Straw Urine Appearance Clear Urine pH 6.0 Ur Specific [place] 1.010 Urine Protein Negative Urine Glucose (UA) Negative Urine Ketones Negative Urine Blood Negative Urine Nitrite Negative Urine Bilirubin Negative Urine Urobilinogen Negative Ur Leukocyte Esterase Trace H Urine RBC 0-3 Urine WBC 0-3 /hpf Ur Epithelial Cells Few Urine Bacteria Few CBC, BMP 08/11/17 08:38 08/11/17 08:38 08/11/2017 * Bladder scan : 342 urinary retention after voiding * CT lumbar reviewed revealed T12 compression fracture to a burst fracture with retropulsion of bone to approximately 50 % of the spinal canal. * CT thoracic reviewed Current Medications Acetaminophen (Tylenol -) 650 mg PO Q4H PRN PRN Reason: FEVER OR PAIN Amlodipine Besylate (Norvasc -) 10 mg PO DAILY [facility] Cholecalciferol (Vitamin D3 -) 2,000 unit PO DAILY [facility] Clonazepam (Klonopin -) 0.25 mg PO TID [facility] Enoxaparin Sodium (Lovenox -) 80 mg SQ ONCE [facility] Last Admin: 08/11/17 12:01 Dose: 80 mg Hydroxyurea (Hydrea -) 500 mg PO DAILY [facility] Sodium Chloride (Normal Saline -) 1,000 mls @ 50 mls/hr IV ASDIR [facility] Stop: 08/12/17 19:25 Influenza Virus Vaccine Quadrival (Flulaval Quad [id number]) 60 mcg IM .ONCE ONE Stop: 08/12/17 10:01 Lactobacillus Acidophilus (Bacid -) 1 tab PO DAILY [facility] Morphine Sulfate (Morphine Injection -) 2 mg IVPUSH Q4H PRN PRN Reason: PAIN Ranitidine HCl (Zantac -) 150 mg PO DAILY [facility] Sotalol HCl (Betapace -) 120 mg PO BID [facility] ASSESSMENT/PLAN: 86yo F hx HTN, lymphoma, al's, GERD, thrombocytopenia, portal vein thrombosis presented to the ED with 5 days of worsening Lower back pain. Pt had a T12 compression fracture 4 months ago, was in rehab for 4 months. Today presented with sever back pain was found to have urinary retention and compression fracture and was admitted for further evaluation. # Urinary retention 2/2 cord compression at T12 vs caudal equina syndrome vs cone medullar syndrom * patient was not able to empty her bladder * CT scan * MRI lumbar spine , pt was not able to sit settled in the MRI , will try again with Ativan * pain killer with Morphine 2 mg IVPUSH Q 4hr * consider steroids before surgery to decrease edema * NPO * IV fluids Ns @ 50 CC /hr * Neurosurgery consultation , * Hematology, and cardiology consultation to optimize for surgery and risk stratification * fall precautions * bladder scan 342 cc retention , start logan cath # Hyponatremia, likley 2/2 low oral intake * NS @ 50 CC/hr * Repeat CMP in AM * # HTN * normotensive * Hold lasix * continue Amlodipine 10 mg PO daily, hold in AM if hypotensive * # Lymphoma * Hematology on the board * can follow as out patient * continue home meds #Paroxysmal afib * c/w sotalol; lovenox held #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 - New Patient This patient is new to me today: Yes Date on this admission: 08/12/17 - Critical Care Critical Care patient: No
[2017-08-11] MEDS ORDERED: LORazepam 2 MG/ML SDV VIAL ONE (17:13)
[2017-08-11 17:16] VITALS: BMI 21.1
[2017-08-11] MEDS ORDERED: morphine CARPU-JECT 4 MG/1 ML DISP.SYRIN IVPUSH PRN (18:44)
--- NOTE | 2017-08-11 18:49 | PN ---
Teaching Attending Note Name of Resident: Milton Vickers ATTENDING PHYSICIAN STATEMENT I saw and evaluated the patient. I reviewed the resident's note and discussed the case with the resident. I agree with the resident's findings and plan as documented. SUBJECTIVE:86yo F wtih PMH HTN, lymphoma, ET, Tucker, myelofibrosis and recent T12 compression fracture presented with back pain, band like across the back. no radiation down the legs. unable to move due to the pain. also c/o sensation of incomplete bladder emptying but denies dysuria or hematuria denies Cp, SOB, fever, chills, weakness or numbness of the LE OBJECTIVE: Last Vital Signs Temp Pulse Resp BP Pulse Ox 97.9 F 49 L 16 135/49 96 08/11/17 16:40 08/11/17 16:40 08/11/17 16:40 08/11/17 16:40 08/11/17 16:40 General NAD ASSESSMENT AND PLAN: 86yo F wtih PMH HTN, lymphoma, PAF, ET, Tucker, myelofibrosis and recent T12 compression fracture presented with back pain 1. Burst T12 compression fracture- with concerns for Cauda equina. Neurosurgery consulted and recommended MRI to evaluate as pt is surgical candidate due to risk factors. Family is refusing at this time and wants to discuss options with hematology and cardiology to know risks assoc with surgery. place logan for urinary retention. pain control. will hold lovenox for possible impending surgery 2. HTN- normotensive. will hold lasix at this time as pt appears dry. cont norvasc 3. PAF- rate controlled. cont sotalol. will hold lovenox for possible surgery. received dose today 4. PMF from ET- cont hydroxyurea 5. DVT ppx- hold a/c at this time (received lovenox today)
--- NOTE | 2017-08-11 18:54 | HP ---
CHIEF COMPLAINT: back pain PCP: Dr. Noriega; Cardio - Dr. Loaiza; Heme - Dr. Grove; Urology - Dr. Bella; Rad/onc - Dr. Bernabe HISTORY OF PRESENT ILLNESS: 86 y/o F w/PMH of HTN, essential thrombocytosis secondary to myelofibrosis, MALT lymphoma, A-fib (on lovenox), mitral valve prolapse, hashimotos thyroiditis , GERD, portal vein thrombosis, splenic infarcts, T12 compression fracture 4 months ago presents to the ER with progressively worsening back pain over the last few weeks. Pain was 10/10 last night and pt could not ambulate due to pain. Pain was across the lower back and worsened with any movement. Pt denies any numbness, tingling, loss of sensation, recent trauma to the back, lifting of heavy objects. Pt also c/o frequent urination and only urinating small amounts but could not put a time frame on how long this has been happening. Pt denies any dysuria, N/V/F/C. ER course was notable for: (1) flexiril, ofirmev, NS 500 ml, ultram (2) Thoracic and Lumbar CT, Bladder U/S (3) PAST MEDICAL HISTORY: as above PAST SURGICAL HISTORY: appendectomy, oopherectomy, cataract surgery, tonsillectomy, "lip cancer removal " Social History: Smoking: smoked 1 pack per week in teens/20s. Alcohol: denies Drugs: denies Allergies propoxyphene napsylate [From Darvocet-N 100] Allergy (Severe, Verified 08/11/17 08:32) Swelling aspirin Allergy (Verified 08/11/17 08:32) Difficulty Breathing hydromorphone HCl [From Dilaudid] Allergy (Verified 08/11/17 08:32) -"PT FELT DIZZY" - may not be true allergy. HOME MEDICATIONS: Home Medications Medication Instructions Recorded Amlodipine Besylate [Norvasc -] 10 mg PO DAILY #0 tablet 05/13/13 Clonazepam [Klonopin] 0.25 mg PO TID 04/21/14 Ranitidine [Zantac -] 150 mg PO DAILY 06/10/15 Cholecalciferol (Vitamin D3) 2,000 unit PO DAILY 03/22/16 [Vitamin D3] Epoetin Chris [Procrit] 0 unit IJ ASDIR 09/11/16 Acetaminophen [Tylenol .Regular 650 mg PO Q4H PRN #0 tablet 06/09/17 Strength -] Hydroxyurea [Hydrea 500Mg Capsule 500 mg PO DAILY #30 cap 06/09/17 -] Furosemide [Lasix -] 40 mg PO BID@0600,1400 tablet 06/10/17 Enoxaparin [Lovenox -] 80 mg SQ BID 08/11/17 Lactobacillus Acidophilus 1 each PO DAILY 08/11/17 [Probiotic] Lidocaine 5% Patch 1 patch TP DAILY 08/11/17 Propylene Glycol/Peg 400 [Systane 1 drop OP DAILY 08/11/17 Ultra 0.4-0.3% Eye Drp] Sotalol HCl [Betapace -] 120 mg PO BID 08/11/17 REVIEW OF SYSTEMS CONSTITUTIONAL: Absent: fever, chills CARDIOVASCULAR: Absent: chest pain RESPIRATORY: Absent: cough, shortness of breath GASTROINTESTINAL: Absent: abdominal pain, nausea, vomiting GENITOURINARY: +FREQUENCY Absent: dysuria, urgency, hesitancy, hematuria, flank pain, genital pain MUSCULOSKELETAL: +BACK PAIN NEUROLOGIC: Absent: focal weakness or paresthesias PHYSICAL EXAMINATION Vital Signs - 24 hr 08/11/17 16:40 Temperature 97.9 F Pulse Rate 49 L Pulse Rate [ 49 L Left Apical] Respiratory 16 Rate Blood Pressure 131/49 Blood Pressure 135/49 [Left Arm] O2 Sat by Pulse 96 Oximetry (%) GENERAL: Awake, alert, and fully oriented, in no acute distress. Pt unable to lay flat due to back pain. HEAD: Normal with no signs of trauma. EYES: extraocular movements intact EARS, NOSE, THROAT: Ears normal, nares patent NECK: Normal range of motion, supple LUNGS: Breath sounds equal, clear to auscultation bilaterally anteriorly. HEART: Bradycardic, normal S1 and S2 ABDOMEN: Soft, nontender, not distended, normoactive bowel sounds MUSCULOSKELETAL: 5/5 LE strength. +pt unable to sit forward or lean forward due to pain. Unable to evaluate. LOWER EXTREMITIES: 1+/trace pitting edema b/l LE. NEUROLOGICAL: B/L LE sensation to pain and light touch intact. Gait not observed. PSYCHIATRIC: Cooperative. Good eye contact. Appropriate mood and affect. SKIN: Warm, dry CBCD WBC 8.3 K/mm3 (4.0-10.0) D 08/11/17 08:38 RBC 3.50 M/mm3 (3.60-5.2) L 08/11/17 08:38 Hgb 8.7 GM/dL (10.7-15.3) L 08/11/17 08:38 Hct 27.6 % (32.4-45.2) L 08/11/17 08:38 MCV 78.9 fl (80-96) L 08/11/17 08:38 MCHC 31.5 g/dl (32.0-36.0) L 08/11/17 08:38 RDW 17.6 % (11.6-15.6) H 08/11/17 08:38 Plt Count 547 K/MM3 (134-434) H D 08/11/17 08:38 MPV 8.2 fl (7.5-11.1) 08/11/17 08:38 CMP Sodium 131 mmol/L (136-145) L 08/11/17 08:38 Potassium 5.1 mmol/L (3.5-5.1) D 08/11/17 08:38 Chloride 96 mmol/L (98-107) L 08/11/17 08:38 Carbon Dioxide 29 mmol/L (21-32) 08/11/17 08:38 Anion Gap 6 (8-16) L 08/11/17 08:38 BUN 30 mg/dL (7-18) H 08/11/17 08:38 Creatinine 0.9 mg/dL (0.55-1.02) 08/11/17 08:38 Creat Clearance w eGFR 59.51 (>60) 08/11/17 08:38 Random Glucose 101 mg/dL (74-106) 08/11/17 08:38 Calcium 9.4 mg/dL (8.5-10.1) 08/11/17 08:38 Total Bilirubin 0.9 mg/dL (0.2-1.0) 08/11/17 08:38 AST 54 U/L (15-37) H D 08/11/17 08:38 ALT 34 U/L (12-78) D 08/11/17 08:38 Alkaline Phosphatase 135 U/L (45-117) H D 08/11/17 08:38 Total Protein 7.9 g/dl (6.4-8.2) 08/11/17 08:38 Albumin 4.1 g/dl (3.4-5.0) D 08/11/17 08:38 Urine Test Results Urine Color Straw 08/11/17 08:46 Urine Appearance Clear 08/11/17 08:46 Urine pH 6.0 (5.0-8.0) 08/11/17 08:46 Ur Specific [place] 1.010 (1.005-1.025) 08/11/17 08:46 Urine Protein Negative (NEGATIVE) 08/11/17 08:46 Urine Glucose (UA) Negative (NEGATIVE) 08/11/17 08:46 Urine Ketones Negative (NEGATIVE) 08/11/17 08:46 Urine Blood Negative (NEGATIVE) 08/11/17 08:46 Urine Nitrite Negative (NEGATIVE) 08/11/17 08:46 Urine Bilirubin Negative (NEGATIVE) 08/11/17 08:46 Ur Leukocyte Esterase Trace (NEGATIVE) H 08/11/17 08:46 Urine RBC 0-3 /hpf (0-3) 08/11/17 08:46 Urine WBC 0-3 /hpf (3-5) 08/11/17 08:46 Ur Epithelial Cells Few /HPF 08/11/17 08:46 Urine Bacteria Few /hpf (NEGATIVE) 08/11/17 08:46 IMAGING Thoracic/Lumbar CT: Report reviewed Bladder U/S: 342 ml urinary retention s/p voiding Active Medications Acetaminophen (Tylenol -) 650 mg PO Q4H PRN PRN Reason: FEVER OR PAIN Amlodipine Besylate (Norvasc -) 10 mg PO DAILY [facility] Cholecalciferol (Vitamin D3 -) 2,000 unit PO DAILY [facility] Clonazepam (Klonopin -) 0.25 mg PO TID [facility] Enoxaparin Sodium (Lovenox -) 80 mg SQ ONCE [facility] Last Admin: 08/11/17 12:01 Dose: 80 mg Hydroxyurea (Hydrea -) 500 mg PO DAILY [facility] Influenza Virus Vaccine Quadrival (Flulaval Quad [id number]) 60 mcg IM .ONCE ONE Stop: 08/11/17 19:01 Lactobacillus Acidophilus (Bacid -) 1 tab PO DAILY [facility] Morphine Sulfate (Morphine Injection -) 2 mg IVPUSH Q4H PRN PRN Reason: PAIN Ranitidine HCl (Zantac -) 150 mg PO DAILY [facility] Sotalol HCl (Betapace -) 120 mg PO BID [facility] ASSESSMENT/PLAN: 86 y/o F w/PMH of HTN, myelofibrosis w/ essential thrombocytosis, MALT lymphoma , A-fib (on lovenox), mitral valve prolapse, hashimotos thyroiditis, GERD, portal vein thrombosis, splenic infarcts, T12 compression fracture 4 months ago presents to the ER with progressively worsening back pain over the last few weeks. CT revealed T12 compression fracture to a burst fracture with retropulsion of bone to approximately 50 % of the spinal canal. -Urinary retention and back pain secondary to cord compression at T12 from fracture -CT imaging report reviewed; Bladder U/S report reviewed -Neurosurgery consulted -Pt likely to require decompression but needs surgical risk stratification - Heme and Cardio consulted. 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 Visit type - Emergency Visit Emergency Visit: Yes ED Registration Date: 08/11/17 Care time: The patient presented to the Emergency Department on the above date and was hospitalized for further evaluation of their emergent condition. - New Patient This patient is new to me today: Yes Date on this admission: 08/11/17 - Critical Care Critical Care patient: No
--- NOTE | 2017-08-11 19:02 | CONSULT ---
Consult - text type - Consultation Consultation Note: Asked to see this 86 year old pleasant female with a history of fall in May 2017 in which she sustained a T12 compression fracture. This was managed conservatively and patient was sent to Rehabilitation in [place] where she made a progressive recovery. She has multiple medical comorbidities including, but not limited to: Lymphoma (Oncologist: Dr. Kline), Cardiac disease ( [place] Dr. Pacheco), Portal vein thrombosis, thrombocytopenia, GERD and osteopenia/osteoporosis. She had recovered reasonably well until approximately 5 days ago when she began to have severe pain upon arising from bed at night to void. She describes recent progression of a longstanding urinary difficulty with night time incontinence and constipation for which she has been prescribed miralax. She has severe mechanical back pain and has difficulty standing/ ambulating or even lying flat. She must maintain a flexed and supported posture while lying down and bent at 45 degrees at the waist. The patient had even further exacerbation of her pain this morning and inability to move/ambulate (secondary to pain, not weakness) and was brought to the [facility] ER for evaluation. CT demonstrates progression of the T12 compression fracture to a burst fracture with retropulsion of bone to approximately 50% of the spinal canal. There is substantial loss of height of the T12 vertebral body. It also appears that there is substantial degenerative changes throughout the lower Thoracic and Lumbar spine with T10-11 stenosis which may compromise the Thoracic spinal cord/conus medullaris. The urinary bladder is significantly distended and raised suspicions of urinary emptying difficulty secondary to Neurologic compromise. Patient has grossly full motion in her lower extremities, but the exam is limited by pain. MRI was attempted on 3 occasions with sedation, however, the patient absolutely cannot tolerate lying down. Overall, the patient feels that her pain is currently unacceptable and states repeatedly "I cannot live like this." Her TLICS score is at least 5 (2 for Morphology/3 for Neurologic Deficit/? for posterior element disruption). This would best be managed with surgical decompression/stabilization, however, her substantial medical comorbidities may make the risks of operative intervention much higher than typical. I described the risks, benefits and alternatives to T10-L2 decompression with transpedicular decompression of the retropulsed bone at T12 and T10-L2 posterior spinal fusion with the patient and daughters in great detail. The risks included, but were not limited to: , coma, paralysis, bleeding, infection, CSF leak possibly requiring spinal drainage or additional surgery, failure to fuse, instrumentation pullout, hardware migration/malposition/ malfunction and the need for additional surgery. All of their questions were answered. Informed consent was obtained. I offered them the option of seeking another opinion or another surgeon and agreed that a comprehensive medical risk stratification with input from her other caregivers would be appropriate. I did stress the time sensitive nature to unstable fractures with significant Neurological compression and expressed that the few absolute contraindications to surgery did not appear to be present. At this point, MRI will not change the surgical plan and I would prepare for T10 -L2 decompression and fusion with an understanding that posterior instrumentation could be restricted to T11-L1 if she cannot tolerate the procedure as planned and could be extended from T9-L3 if her bone quality is extremely poor. I quoted them a 10% risk of permanent major morbidity or mortality with surgery. I explained that without surgery, her "unacceptable" level of pain would likely not sarah and she would face potentially a 50% risk of urinary tract infections, pressure sores, pneumonia, loss of ambulation, intractable pain, DVT and depression. Unfortunately this is an exceptionally challenging medical situation and there are no clear and good options. My recommendation, which I have shared with the patient and daughters is that she should undergo judicious decompression and stabilization sooner rather than later and that while conversing with each and every one of her caregivers would be ideal, the initial focus should be on risk stratification as it may influence the decision to proceed or not. I encourage Anesthesia and General Medical/Cardiac evaluation for surgical risks for a procedure under general anesthesia which is likely to require 2 hours with 250-500cc blood loss and no need for hypotensive anesthesia and no anticipated fluid/pressure swings.
[2017-08-11] MEDS ORDERED: SODIUM CHLORIDE 1,000 ML IV SCH (19:30)
[2017-08-11] MEDS: SOTALOL HCL 80 MG TABLET (FP) PO SCH (22:07)
[2017-08-11] MEDS: clonazePAM 0.5 MG TABLET PO SCH (22:08)
[2017-08-11 23:53] LABS: URINE APPEARANCE SLCLOUDY; URINE BILIRUBIN NEGATIVE (NEGATIVE); URINE BLOOD 1+ (NEGATIVE); URINE COLOR LTYELLOW; URINE GLUCOSE (UA) NEGATIVE (NEGATIVE); URINE KETONE NEGATIVE (NEGATIVE); URINE NITRITE NEGATIVE (NEGATIVE); URINE UROBILINOGEN NEGATIVE mg/dL (0.2-1.0)
[2017-08-11 23:56] LABS: URINE PROTEIN 1+ (NEGATIVE)
[2017-08-12 00:02] LABS: CALCIUM OXALATE CRYSTALS RARE /hpf (NONE SEEN); URINE BACTERIA RARE /hpf (NONE SEEN); URINE RBC <1 /hpf (0-3); URINE WBC 1 /hpf (3-5)
[2017-08-12] MEDS: clonazePAM 0.5 MG TABLET PO SCH ×3 (06:51→21:06)
[2017-08-12 08:00] LABS: BASOPHIL 1.7 % (0-2.0); EOSINOPHIL 2.2 % (0-4.5); MCH 24.8 pg (25.7-33.7); MCHC 31.7 g/dl (32.0-36.0); MEAN CELL VOLUME 78.5 fl (80-96); MEAN PLT VOLUME 7.2 fl (7.5-11.1); NEUTROPHILS 67.8 % (42.8-82.8); PLATELET COUNT 349 K/MM3 (134-434); RDW 17.3 % (11.6-15.6); WHITE BLOOD COUNT 4.8 K/mm3 (4.0-10.0)
[2017-08-12 08:28] LABS: INR 1.16 (0.82-1.09); PROTHROMBIN TIME (PATIENT) 12.8 SEC (9.98-11.88)
[2017-08-12 08:31] LABS: ACTIVATED PTT 36.3 SECONDS (26.9-34.4)
[2017-08-12 08:39] LABS: ALBUMIN 3.3 g/dl (3.4-5.0); ANION GAP 8 (8-16); CALCIUM 8.7 mg/dL (8.5-10.1); CO2 30 mmol/L (21-32); GLUCOSE,RANDOM 79 mg/dL (74-106)
[2017-08-12 08:43] LABS: ALK PHOS 110 U/L (45-117); BILIRUBIN,TOTAL 0.6 mg/dL (0.2-1.0); CREATININE 0.7 mg/dL (0.55-1.02); SGOT/AST 16 U/L (15-37); SGPT/ALT 25 U/L (12-78); TOT PROT 6.3 g/dl (6.4-8.2)
[2017-08-12] MEDS: CHOLECALCIFEROL (VITAMIN D3) 1,000 UNIT TABLET (FP) PO SCH (09:47)
[2017-08-12] MEDS: LACTOBACILLUS ACIDOPHILUS 1 EACH TAB (FP) PO SCH (09:47)
[2017-08-12] MEDS: RANITIDINE HCL 150 MG TABLET (FP) PO SCH (09:47)
[2017-08-12] MEDS: SOTALOL HCL 80 MG TABLET (FP) PO SCH ×2 (09:48→21:05)
[2017-08-12] MEDS: HYDROXYUREA 500 MG CAPSULE PO SCH (09:51)
[2017-08-12] MEDS ORDERED: FLU VACCINE QUAD 60 MCG/0.5 ML (MDV 17-18) IM ONE (10:00)
[2017-08-12] MEDS ORDERED: amLODIPine BESYLATE 10 MG TABLET (FP) PO ONE (11:30)
--- NOTE | 2017-08-12 11:40 | PN ---
Progress Note (short form) - Note Progress Note: high risk for bleeding/clotting
[2017-08-12 11:51] LABS: URINE LEUK ESTERASE Negative (NEGATIVE)
--- NOTE | 2017-08-12 12:12 | CON.PULM ---
Consult Consult Specialty:: PULM/CCM Referred by:: NAIDA - History of Present Illness Chief Complaint: LBP History of Present Illness: 86 M, HTN, MALT Lymphoma, Atrial Fibrillation on AC, Thrombocytosis, Tucker' s Disease, GERD and Myelofibrosis. Admitted due to the ER due to "throbbing" back pain. Pain described as 10/10. Noted to have cord compression from T12 fracture. Recent T12 compression fracture in 05/20 for which patient spent 4 month in rehabilitation. Denies CP or SOB. No hemoptysis. Seen by NS and there a consideration for surgical intervention. - History Source History Provided By: Patient Limitations to Obtaining History: No Limitations - Past Medical History Cardio/Vascular: Yes: AFIB, HTN, Other (Mitral Valve Prolapse) Gastrointestinal: Yes: GERD Psych: Yes: Anxiety ENT: Yes: Allergic Rhinitis, Sinusitis Endocrine: Yes: Other (Hashimotos thyroiditis) - Past Surgical History Past Surgical History: Yes: Appendectomy, Cataract Removal (bilateral), Oopherectomy (bilateral), Tonsillectomy - Alcohol/Substance Use Hx Alcohol Use: No - Smoking History Smoking history: Former smoker Have you smoked in the past 12 months: No Aproximately how many cigarettes per day: 2 If you are a former smoker, when did you quit?: 60 years ago - Social History Usual Living Arrangement: Alone (, in [place]) ADL: Independent 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 History of Recent Travel: No Home Medications - Allergies Allergies/Adverse Reactions: Allergies Allergy/AdvReac Type Severity Reaction Status Date / Time propoxyphene napsylate Allergy Severe Swelling Verified 08/11/17 08:32 [From Darvocet-N 100] aspirin Allergy Difficulty Verified 08/11/17 08:32 Breathing hydromorphone HCl Allergy Verified 08/11/17 08:32 [From Dilaudid] - Home Medications Home Medications: Ambulatory Orders Amlodipine Besylate [Norvasc -] 10 mg PO DAILY #0 tablet 05/13/13 Clonazepam [Klonopin] 0.25 mg PO TID 04/21/14 Ranitidine [Zantac -] 150 mg PO DAILY 06/10/15 Cholecalciferol (Vitamin D3) [Vitamin D3] 2,000 unit PO DAILY 03/22/16 Epoetin Chris [Procrit] 0 unit IJ ASDIR 09/11/16 Acetaminophen [Tylenol .Regular Strength -] 650 mg PO Q4H PRN #0 tablet Hydroxyurea [Hydrea 500Mg Capsule -] 500 mg PO DAILY #30 cap 06/09/17 Furosemide [Lasix -] 40 mg PO BID@0600,1400 tablet 06/10/17 Enoxaparin [Lovenox -] 80 mg SQ BID 08/11/17 Lactobacillus Acidophilus [Probiotic] 1 each PO DAILY 08/11/17 Lidocaine 5% Patch 1 patch TP DAILY 08/11/17 Propylene Glycol/Peg 400 [Systane Ultra 0.4-0.3% Eye Drp] 1 drop OP DAILY Sotalol HCl [Betapace -] 120 mg PO BID 08/11/17 Family Disease History - Family Disease History Family Disease History: Other: Father (CVA) Review of Systems - Review of Systems Constitutional: reports: Malaise, Weakness. denies: Chills, Fever Eyes: reports: No Symptoms HENT: reports: No Symptoms Neck: reports: No Symptoms Cardiovascular: denies: Chest Pain, Palpitations, Shortness of Breath Respiratory: denies: Cough, Hemoptysis, Snoring, SOB, SOB on Exertion, Wheezing Gastrointestinal: reports: No Symptoms Genitourinary: reports: No Symptoms Breasts: reports: No Symptoms Reported Musculoskeletal: reports: Back Pain Integumentary: reports: No Symptoms Neurological: reports: No Symptoms Endocrine: reports: No Symptoms Hematology/Lymphatic: reports: No Symptoms Psychiatric: reports: No Symptoms Physical Exam Vital Sings: Vital Signs Temperature 98.7 F 08/12/17 05:32 Pulse Rate 56 L 08/12/17 05:32 Respiratory Rate 18 08/12/17 05:32 Blood Pressure 148/53 08/12/17 05:32 O2 Sat by Pulse Oximetry (%) 96 08/11/17 21:00 Constitutional: Yes: No Distress, Thin Eyes: Yes: Conjunctiva Clear, EOM Intact HENT: Yes: Atraumatic, Normocephalic Neck: Yes: Supple, Trachea Midline Cardiovascular: Yes: Regular Rate and Rhythm Respiratory: Yes: Regular, CTA Bilaterally ...Clubbing: No Gastrointestinal: Yes: Normal Bowel Sounds, Soft Renal/: Yes: WNL Musculoskeletal: Yes: Back Pain Extremities: Yes: WNL Edema: No Peripheral Pulses WNL: Yes Integumentary: Yes: WNL Neurological: Yes: Alert, Oriented ...Motor Strength: WNL Psychiatric: Yes: WNL, Alert, Oriented Labs: CBC, BMP 08/12/17 07:00 08/12/17 07:00 Imaging - Results Chest X-ray: Report Reviewed, Image Reviewed Problem List - Problems (1) Compression fracture of lumbar vertebra Code(s): S32.000A - WEDGE COMPRESSION FRACTURE OF UNSP LUMBAR VERTEBRA, INIT Qualifiers: Encounter type: initial encounter Fracture type: closed (2) Anxiety Code(s): F41.9 - ANXIETY DISORDER, UNSPECIFIED (3) GERD (gastroesophageal reflux disease) Code(s): K21.9 - GASTRO-ESOPHAGEAL REFLUX DISEASE WITHOUT ESOPHAGITIS (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 (5) History of Coumadin therapy Code(s): Z79.01 - POULTRY PROCESSING SUPERVISOR (CURRENT) USE OF 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 (6) Hypertension Code(s): I10 - ESSENTIAL (PRIMARY) HYPERTENSION (7) MALT lymphoma Code(s): C88.4 - EXTRNOD MRGNL ZN B-CELL LYMPH OF MUCOSA-ASSOC LYMPHOID TISS (8) Myelodysplastic syndrome Code(s): D46.9 - MYELODYSPLASTIC SYNDROME, UNSPECIFIED (9) Myeloproliferative disease Code(s): D47.1 - CHRONIC MYELOPROLIFERATIVE DISEASE (10) Depression Code(s): F32.9 - MAJOR DEPRESSIVE DISORDER, SINGLE EPISODE, UNSPECIFIED Qualifiers: Depression Type: other depression Qualified Code(s): F32.89 - Other specified depressive episodes; F32.89 - Other specified depressive episodes; F32.89 - Other specified depressive episodes (11) Lymphoma Code(s): C85.90 - NON-HODGKIN LYMPHOMA, UNSPECIFIED, UNSPECIFIED SITE (12) A-fib Code(s): I48.91 - UNSPECIFIED ATRIAL FIBRILLATION Qualifiers: Atrial fibrillation type: paroxysmal Qualified Code(s): I48.0 - Paroxysmal atrial fibrillation; I48.0 - Paroxysmal atrial fibrillation; I48.0 - Paroxysmal atrial fibrillation; I48.0 - Paroxysmal atrial fibrillation (13) History of Tucker thyroiditis Code(s): Z86.39 - PERSONAL HISTORY OF ENDO, NUTRITIONAL AND METABOLIC DISEASE (14) Mitral valve prolapse syndrome Code(s): I34.1 - NONRHEUMATIC MITRAL (VALVE) PROLAPSE (15) Paroxysmal a-fib Code(s): I48.0 - PAROXYSMAL ATRIAL FIBRILLATION (16) Portal vein thrombosis Code(s): I81 - PORTAL VEIN THROMBOSIS (17) Vertigo Code(s): R42 - DIZZINESS AND GIDDINESS Assessment/Plan Pre-surgical assessment is being made. There is no Pulmonary contraindication for intervention, although the patient is at high risk due to listed medical issues. Post-o[p monitored setting Will need cardiac clearance Heme evaluation has been called. Will follow Thank you. Dr Zuleta
[2017-08-12] MEDS: ACETAMINOPHEN 325 MG TABLET (FP) PO PRN (13:13)
[2017-08-12] MEDS: ENOXAPARIN NA (PORCINE) 80 MG/0.8 ML DISP.SYRIN SQ SCH (13:14)
--- NOTE | 2017-08-12 13:18 | PN ---
Teaching Attending Note Name of Resident: Milton Vickers ATTENDING PHYSICIAN STATEMENT I saw and evaluated the patient. I reviewed the resident's note and discussed the case with the resident. I agree with the resident's findings and plan as documented. SUBJECTIVE: OBJECTIVE: Last Vital Signs Temp Pulse Resp BP Pulse Ox 98.7 F 56 L 18 148/53 96 08/12/17 05:32 08/12/17 05:32 08/12/17 05:32 08/12/17 05:32 08/11/17 21:00 General NAD CV S1 S2 RRR no murmur/rub/gallop Lungs CTA B/L anteriorly Extremities sensation and strength grossly intact B/L LE. +dorsiflexion and plantarflexion. refused exam of back and ROM testing ASSESSMENT AND PLAN: 86yo F wtih PMH HTN, lymphoma, PAF, ET, Tucker, myelofibrosis and recent T12 compression fracture presented with back pain 1. Burst T12 compression fracture- with concerns for Cauda equina. TLICS score 5. which makes her candidate for surgery however due to multiple comorbidities requesting 2nd opinion. consulted Dr Osuna. family also requesting to d/w Dr Blas options. called his office and explained situation. he will come to d/w pt later today options available to her. will cont pain control. logan in place. 2. HTN- normotensive. will hold lasix at this time as pt appears dry. cont norvasc 3. PAF- rate controlled. cont sotalol. will resume lovenox but hold tonights dose for possible impending surgery. 4. PMF from ET- acute drop in Hgb. no signs of bleeding. will transfuse 1 unit PRBC. goal Hgb >8. cont hydroxyurea. procrit as outpatient 5. 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 DVT ppx- SCD, full dose lovenox.
[2017-08-12] MEDS ORDERED: ENOXAPARIN NA (PORCINE) 80 MG/0.8 ML DISP.SYRIN SQ ONE (14:30)
--- NOTE | 2017-08-12 14:46 | PN ---
Physical Exam: SUBJECTIVE: Patient seen and examined at bedside. No acute events over night. pain is controlled with pain meds, logan in place. denies any fever, chills, N/V /D, but complains of constipation,denies any numbness or weakness. OBJECTIVE: Vital Signs Period Temp Pulse Resp BP Sys/Conde Pulse Ox Last 24 Hr 97.6 F-98.8 F 49-57 16-18 122-148/44-61 96-96 GENERAL: The patient is awake, alert, and fully oriented, in mild acute distress. HEAD: Normal with no signs of trauma. EYES: sclera anicteric, conjunctiva clear. No ptosis. ENT: dry mucous membranes. LUNGS: Breath sounds equal, clear to auscultation bilaterally, no wheezes, no crackles, no accessory muscle use. HEART: Regular rate and rhythm, S1, S2 without murmur, rub or gallop. ABDOMEN: Soft, nontender, distended, normoactive bowel sounds, no guarding, no rebound, logan in place EXTREMITIES: warm, well-perfused, no edema. NEUROLOGICAL: Cranial nerves II through XII grossly intact. Normal speech, gait not observed. strength 5/5 un all 4 ext, normal reflexes, sensation intact PSYCH: Normal mood, normal affect. SKIN: Warm, dry, no rashes or lesions noted Laboratory Results - last 24 hr 08/11/17 08/11/17 08/12/17 19:45 23:32 07:00 WBC 4.8 D RBC 2.95 L Hgb 7.3 L D Hct 23.2 L D MCV 78.5 L MCH 24.8 L MCHC 31.7 L RDW 17.3 H Plt Count 349 D MPV 7.2 L D Neutrophils % 67.8 Lymphocytes % 18.9 D Monocytes % 9.4 Eosinophils % 2.2 Basophils % 1.7 PT with INR INR PTT (Actin FS) Sodium Potassium Chloride Carbon Dioxide Anion Gap BUN Creatinine Creat Clearance w eGFR Random Glucose Calcium Total Bilirubin AST ALT Alkaline Phosphatase Total Protein Albumin Urine Color Ltyellow Urine Appearance Slcloudy Urine pH 6.0 Ur Specific [place] 1.010 Urine Protein 1+ H Urine Glucose (UA) Negative Urine Ketones Negative Urine Blood 1+ H Urine Nitrite Negative Urine Bilirubin Negative Urine Urobilinogen Negative Ur Leukocyte Esterase Negative Urine RBC <1 Urine WBC 1 Calcium Oxalate Crystal Rare Urine Bacteria Rare Blood Type AB POSITIVE Antibody Screen Negative Crossmatch See Detail 08/12/17 08/12/17 07:00 07:00 WBC RBC Hgb Hct MCV MCH MCHC RDW Plt Count MPV Neutrophils % Lymphocytes % Monocytes % Eosinophils % Basophils % PT with INR 12.80 H INR 1.16 H PTT (Actin FS) 36.3 H Sodium 137 Potassium 3.8 D Chloride 99 Carbon Dioxide 30 Anion Gap 8 BUN 20 H D Creatinine 0.7 D Creat Clearance w eGFR > 60 Random Glucose 79 D Calcium 8.7 Total Bilirubin 0.6 D AST 16 D ALT 25 D Alkaline Phosphatase 110 Total Protein 6.3 L D Albumin 3.3 L Urine Color Urine Appearance Urine pH Ur Specific [place] Urine Protein Urine Glucose (UA) Urine Ketones Urine Blood Urine Nitrite Urine Bilirubin Urine Urobilinogen Ur Leukocyte Esterase Urine RBC Urine WBC Calcium Oxalate Crystal Urine Bacteria Blood Type Antibody Screen Crossmatch Active Medications Generic Name Dose Route Start Last Admin Trade Name Freq PRN Reason Stop Dose Admin Acetaminophen 650 mg 08/11/17 19:05 08/12/17 13:13 Tylenol - PO 650 mg Q4H PRN Administration FEVER OR PAIN Amlodipine Besylate 10 mg 08/12/17 10:00 Norvasc - PO DAILY MARGARITA Cholecalciferol 2,000 unit 08/12/17 10:00 08/12/17 09:47 Vitamin D3 - PO 2,000 unit DAILY MARGARITA Administration Clonazepam 0.25 mg 08/11/17 22:00 08/12/17 13:15 Klonopin - PO 0.25 mg TID MARGARITA Administration Hydroxyurea 500 mg 08/12/17 10:00 08/12/17 09:51 Hydrea - PO 500 mg DAILY MARGARITA Administration Sodium Chloride 1,000 mls @ 50 mls/hr 08/11/17 19:30 08/11/17 22:13 Normal Saline - IV 08/12/17 19:25 50 mls/hr ASDIR MARGARITA Administration Lactobacillus Acidophilus 1 tab 08/12/17 10:00 08/12/17 09:47 Bacid - PO 1 tab DAILY MARGARITA Administration Morphine Sulfate 2 mg 08/11/17 23:45 Morphine Injection - IVPUSH Q4H PRN PAIN Polyethylene Glycol 17 gm 08/12/17 11:30 Miralax (For Daily Use) - PO DAILY MARGARITA Ranitidine HCl 150 mg 08/12/17 10:00 08/12/17 09:47 Zantac - PO 150 mg DAILY MARGARITA Administration Sotalol HCl 120 mg 08/11/17 22:00 08/12/17 09:48 Betapace - PO 120 mg BID MARGARITA Administration CBC, BMP 08/12/17 07:00 08/12/17 07:00 ASSESSMENT/PLAN: 86yo F hx HTN, lymphoma, al's, GERD, thrombocytopenia, portal vein thrombosis presented to the ED with 5 days of worsening Lower back pain. Pt had a T12 compression fracture 4 months ago, was in rehab for 4 months. Today presented with sever back pain was found to have urinary retention and compression fracture and was admitted for further evaluation. # cord compression at T12 due to burst compression fracture * CT scan reviewd shows 50 % effacemnet of spinal canal at T12 * MRI lumbar spine , pt was not able to sit settled in the MRI X3 , * pain killer with Morphine 2 mg IVPUSH Q 4hr * advance diet to low sodium diet * Neurosurgery consultation , * Hematology, and cardiology consultation to optimize for surgery and risk stratification * fall precautions * Hematology consider high risk for surgery due to bleeding/clotting * Pulmonary no contraindication but high risk for surgery Urinary retention 2/2 cord compression at T12 * She feels the urge but not able to empty her bladder * Blader scan >342 cc * maintain Logan * # Hyponatremia, likley 2/2 low oral intake * NS @ 50 CC/hr * Repeat CMP in AM * advance her diet to low sodium diet due to HTN # HTN * normotensive * Hold lasix * continue Amlodipine 10 mg PO daily, hold in AM if hypotensive * # Lymphoma * Hematology on the board * can follow as out patient * continue home meds #Paroxysmal afib * c/w sotalol; * continue Lovenox 80 mg daily * consider to hold if surgery confirmed # PMF from ET * acute drop in Hgb with no signs of bleeding. * will transfuse 1 unit PRBC. goal Hgb >8. * cont hydroxyurea. * procrit as outpatient # splenic vein infarcts- on full dose lovenox #Anxiety * c/w klonopin 0.25 mg po bid prn for anxiety # FEN * F :DC IVF * E: Monitor * N: advance to lo sodium diet # Proph * DVT: SCDs, lovenox 80 , consider to hold if decide surgery * GI : no need for now # dispo * Admit to med -surg * hem and cardio on board for risk stratification , high risk for surgery Visit type - Emergency Visit Emergency Visit: Yes ED Registration Date: 08/11/17 Care time: The patient presented to the Emergency Department on the above date and was hospitalized for further evaluation of their emergent condition. - New Patient This patient is new to me today: No - Critical Care Critical Care patient: No
--- NOTE | 2017-08-12 15:25 | CONSULT ---
Consult - text type - Consultation Consultation Note: FULL CONSULTATION DICTATED IMP: T12 FX WITH 50% EFFACEMENT OF THE SPINAL CANAL WITH URINARY RETENTION PLAN: I DEFER JUDGEMENT ON THIS CASE TO THE NEUROSURGEON
--- NOTE | 2017-08-12 16:17 | PN ---
Progress Note (short form) - Note Progress Note: NEUROSURGERY OPINION DICTATED h/o HTN, lymphoma s/p XRT, al's thyroiditis, paroxysmal AFib, GERD, thrombocytopenia, portal vein thrombosis c/o 4-5 days of increasing/recurrent LBP. Pt had a T12 compression fracture 3 months ago with back pain, was in rehab for 2 months and felt better afterwards. Denies new trauma or fall but had picked up objects from the floor at times. Denies LE weakness or numbness. No urinary/bladder retention or incontinence. Found to have distended bladder and Baldwin was inserted. Unable to tolerate MRI. PE: AF, VSS HEENT- NC/AT; Neck- supple; Cor- Reg; Lungs- decreased BS at bases; Abd- benign , + BS; Ext- chronic venous changes B LE; no obvious sign of DVT CN- intact; Motor- 4+-5/5 B LE; Sensation- intact LT, vibration; DTR- hyporeflexia; Back- mild kyphosis over TL junction, tenderness mostly along B iliac crest line Labs reviewed CT LS spine : minimal T12 sup endplate depression; diffuse osteopenia; moderate L3-4 and L4-[address] T/LS spine : 65-70% reduction of anterior T12 vertebral height; posterior inferior T12 endplate retropulsion; 20-25% hyphosis T11-L1; 35% anterior central canal impingement inf T12 related to burst fx; minimal kyphosis ; modereate L3-4 and L4-5 central and lateral recess stenosis T12 osteoporotic burst fx with minimal if any focal deficit; burst fx generally successfully heal and remodel with time No neurosurgical intervention recommended Significant medical risk factors for surgical intervention given age and aforementioned medical conditions; further osteoporotic bone would be problematic with disparity of modular elasticity of metallic instrumentation/ fixation system over osteoporotic bone Consider TLSO brace (pt declined previously), pain management (facet) injection and/or T12 vertebroplasty for pain control Consulted Dr. Hinton per pt preference for the above Pros and cons of treatment approaches discussed All questions answered
[2017-08-12] MEDS ORDERED: PT OWN MED DRAWER 7, Y5N ONE (17:38)
[2017-08-12] MEDS: POLYETHYLENE GLYCOL 3350 119 GM BTL PO SCH (17:42)
[2017-08-12] MEDS: morphine CARPU-JECT 2 MG/1 ML DISP.SYRIN IVPUSH PRN (17:42)
--- NOTE | 2017-08-12 18:37 | CONS ---
DATE OF CONSULTATION: 08/12/2017 Patient is an 86-year-old female who is status post fall in May of 2017 where she sustained a T12 compression fracture. She was being managed conservatively with improvement. Five days ago she began to have severe increased pain, which wakes her up at nighttime. Difficulty urinating with some night incontinence and significant back pain on ambulating and even while lying in bed. Patient's symptoms got to the point where she brought herself to the emergency room yesterday. CT scan in the emergency room revealed a T12 compression fracture with retropulsion of approximately 50% of the spinal canal and significant loss of height of the T12 vertebral body. The distended urinary bladder was also seen. Patient was unable to go into the MRI scan despite sedation as lying down was just too painful for her. PHYSICAL EXAMINATION: The patient has a great deal of pain with flexion and extension of her spine. She does have negative straight leg raise sign to the lower extremities. Sensation appears to be intact. PLAN: I have discussed the case at length with the neurosurgeon, Dr. Leiva, who at this time recommends a decompression of the retropulsed fragment at T12 and a posterior spinal fusion due to her severe pain and urinary neurological problems. Either way, the patient is in a very difficult situation. Doing this procedure on an 86-year-old has its inherent potential complications; however, not operating leaves the patient with significant pain and neurological problems, which could lead to UTIs at a later date. I have tried to answer as many questions as possible from the patient, but I need to defer the decision-making to the neurosurgeon as this is beyond my level of expertise. I have told the patient to that effect. Patient will need to have further discussion with her property clerk and law office receptionist whether she is medically cleared and to discuss any further questions that she might have with Dr. Leiva, the neurosurgeon, to decide whether she should go forward. RENU REYES M.D. [id number]
[2017-08-12 19:24] LABS: MCH 25.8 pg (25.7-33.7); MEAN CELL VOLUME 80.6 fl (80-96); MEAN PLT VOLUME 7.9 fl (7.5-11.1); PLATELET COUNT 388 K/MM3 (134-434); RDW 16.8 % (11.6-15.6); WHITE BLOOD COUNT 5.9 K/mm3 (4.0-10.0)
--- NOTE | 2017-08-12 19:51 | PN ---
Progress Note (short form) - Note Progress Note: Patient seen in follow-up this evening. When I spoke with patient and daughters yesterday in ER, I discussed that retropulsion of bone with urinary retention meets the indications for surgical intervention, however, in some patients, the perioperative risks may be too great. I explained that symptomatic aortic stenosis and mechanical heart valves with vegetations requiring anticoagulation would be medical conditions which would elevate the risks of surgery above those of the natural history of this condition which is itself quite poor. While this patient does not have these conditions, I agreed that a risk stratification would be appropriate before proceeding. After discussions with Dr. Kline and comprehensive review of her multiple, complex and severe medical comorbidities, I agree with the consensus opinion that while the natural history of her condition is quite poor, surgical intervention would represent unacceptably high risks for perioperative complications. I discussed this with the patient and daughters in detail and they are in agreement with plans for palliation with injections, bracing and Physical Therapy.
--- NOTE | 2017-08-12 23:02 | CONSULT ---
Consult - text type - Consultation Consultation Note: Patient is an 86 y.o. 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 Patient and patient's daughter at bedside note h/o of recent T12 compression fracture in for which patient spent 4 month in rehabilitation. Patient states she was at home sitting when she the throbbing pain started on her R low back 08/13 non radiating. Patient denies LE weakness, numbness, tingling, tremors or any loss of sensation. 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 iron overload abnormal liver MRI Portal vein/SMV thrombosis PAST SURGICAL HISTORY: Appendectomy , ovaries removal, cataract, lower lip cancer , tonsillectomy Social History: Smokin/2 pack as a teen age Alcohol:denies Drugs: denies Family History: Allergies propoxyphene napsylate [From Darvocet-N 100] Allergy (Severe, Verified 08/11/17 08:32) Swelling aspirin Allergy (Verified 08/11/17 08:32) Difficulty Breathing hydromorphone HCl [From Dilaudid] Allergy (Verified 08/11/17 08:32) HOME MEDICATIONS: Home Medications Medication Instructions Recorded Amlodipine Besylate [Norvasc -] 10 mg PO DAILY #0 tablet 05/13/13 Clonazepam [Klonopin] 0.25 mg PO TID 04/21/14 Ranitidine [Zantac -] 150 mg PO DAILY 06/10/15 Cholecalciferol (Vitamin D3) 2,000 unit PO DAILY 03/22/16 [Vitamin D3] Epoetin Chris [Procrit] 0 unit IJ ASDIR 09/11/16 Acetaminophen [Tylenol .Regular 650 mg PO Q4H PRN #0 tablet 06/09/17 Strength -] Hydroxyurea [Hydrea 500Mg Capsule 500 mg PO DAILY #30 cap 06/09/17 -] Furosemide [Lasix -] 40 mg PO BID@0600,1400 tablet 06/10/17 Enoxaparin [Lovenox -] 80 mg SQ BID 08/11/17 Lactobacillus Acidophilus 1 each PO DAILY 08/11/17 [Probiotic] Lidocaine 5% Patch 1 patch TP DAILY 08/11/17 Propylene Glycol/Peg 400 [Systane 1 drop OP DAILY 08/11/17 Ultra 0.4-0.3% Eye Drp] Sotalol HCl [Betapace -] 120 mg PO BID 08/11/17 Active Medications Generic Name Dose Route Start Last Admin Trade Name Freq PRN Reason Stop Dose Admin Acetaminophen 650 mg 08/11/17 19:05 08/12/17 13:13 Tylenol - PO 650 mg Q4H PRN Administration FEVER OR PAIN Amlodipine Besylate 10 mg 08/12/17 10:00 Norvasc - PO DAILY MARGARITA Cholecalciferol 2,000 unit 08/12/17 10:00 08/12/17 09:47 Vitamin D3 - PO 2,000 unit DAILY MARGARITA Administration Clonazepam 0.25 mg 08/11/17 22:00 08/12/17 21:06 Klonopin - PO 0.25 mg TID MARGARITA Administration Hydroxyurea 500 mg 08/12/17 10:00 08/12/17 09:51 Hydrea - PO 500 mg DAILY MARGARITA Administration Lactobacillus Acidophilus 1 tab 08/12/17 10:00 08/12/17 09:47 Bacid - PO 1 tab DAILY MARGARITA Administration Morphine Sulfate 2 mg 08/11/17 23:45 08/12/17 17:42 Morphine Injection - IVPUSH 2 mg Q4H PRN Administration PAIN Polyethylene Glycol 17 gm 08/12/17 11:30 08/12/17 17:42 Miralax (For Daily Use) - PO 17 gm DAILY MARGARITA Administration Ranitidine HCl 150 mg 08/12/17 10:00 08/12/17 09:47 Zantac - PO 150 mg DAILY MARGARITA Administration Sotalol HCl 120 mg 08/11/17 22:00 08/12/17 21:05 Betapace - PO 120 mg BID MARGARITA Administration Last Vital Signs Temp Pulse Resp BP Pulse Ox 98.8 F 61 20 141/46 96 08/12/17 17:00 08/12/17 17:00 08/12/17 17:00 08/12/17 17:00 08/12/17 09:00 Cor: RSR, No murmurs, No gallops Lungs: Clear to P&A Abd: Soft, Normal bowel sounds, No organomegaly Ext:No significant edema Skin: No rashes, Integument intact Abnormal Lab Results 08/11/17 08/11/17 08/12/17 19:45 23:32 07:00 RBC 2.95 L Hgb 7.3 L D Hct 23.2 L D MCV 78.5 L MCH 24.8 L MCHC 31.7 L RDW 17.3 H MPV 7.2 L D PT with INR INR PTT (Actin FS) BUN Total Protein Albumin Urine Protein 1+ H Urine Blood 1+ H Crossmatch See Detail 08/12/17 08/12/17 08/12/17 07:00 07:00 18:20 RBC 3.33 L Hgb 8.6 L D Hct 26.8 L D MCV MCH MCHC RDW 16.8 H MPV PT with INR 12.80 H INR 1.16 H PTT (Actin FS) 36.3 H BUN 20 H D Total Protein 6.3 L D Albumin 3.3 L Urine Protein Urine Blood Crossmatch A/P 86 y/o patient with HTN, MVP, afib, essential thrombocytosis/myelofibrosis, transfusion dependency, ironoverload, abnormal liver MRI ? lesions vs signal abnormality, recent portal/SMV thrombosis, MALT lymphoma s/p RT, s/p recent fall 05/20 with vertebral compression fx Now comes in with worsening back pain worsening compression fx, urinary retention, conus medullaris compression discussed with Dr. solo, dr. lemos and patient/her daughters difficult situation given her multiple comorbidities/extremely high risk for surgery but poor prognisis overall per family request got 2nd neurosurgical opinion discussed in detail ith patient/daughters--they prefer conservative management will disucc with IR regarding kyphoplasty/epidural steroid SMV/portal thrombosis-- failed coumadin on lovenox 8-mg SC daily ot 50mg SC bid ET/myelofibrosis continue hydrea monitor CBC agree with 1 unit PRBCs abnormal liver MRI --is getting MRI s reviewed at [facility] MALT lymphoma--s/p RT
--- NOTE | 2017-08-13 00:33 | CONS ---
DATE OF CONSULTATION: DATE OF DICTATION: 08/12/2017 REQUESTING PHYSICIAN: Hospitalist. CARDIOLOGY CONSULTATION HISTORY OF PRESENT ILLNESS: An 86-year-old female who is well known to my service has longstanding history of mitral valve prolapse, ventricular premature beats, atrial fibrillation, Tucker thyroiditis, hypothyroidism, myelodysplastic syndrome, thrombocytosis, and has developed lymphoma. Patient also has hypertension, gastroesophageal reflux disease, osteopenia/osteoporosis, history of compression fractures of T12, was admitted with excruciating back pain and states that she has been undergoing physiotherapy. Patient was evaluated by neurosurgical service and consensus has been that no surgical intervention is necessary at this time. There is no history of chest pain or discomfort, no dyspnea has been reported, no paroxysmal nocturnal dyspnea or orthopnea. Rare episodes of palpitations described as skips, no history of diabetes mellitus, no history of cough or expectoration. 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 She had developed peripheral edema and ascites during her last admission and was being treated with subcutaneous heparin. PAST HISTORY: As mentioned in the history of present illness. SURGICAL HISTORY: 1. Status post tonsillectomy. 2. Status post appendectomy. 3. Status post bilateral oophorectomy. 4. Status post bilateral cataract extraction. SOCIAL HISTORY: , retired, and denies smoking or excessive alcohol use. FAMILY HISTORY: Noncontributory. ALLERGIES: 1. DARVOCET N. 2. ASPIRIN 3. DILAUDID. CURRENT MEDICATIONS: 1. Tylenol 650 mg p.o. q.4 h. p.r.n. 2. Hydroxyurea 500 mg p.o. daily. 3. Klonopin 0.25 mg b.i.d. 4. Sotalol 120 mg p.o. b.i.d. 5. Miralax 17 g p.o. daily. 6. Amlodipine Bisalate 10 mg p.o. daily. 7. Ranitidine 150 mg p.o. daily. 8. Morphine sulfate 2 mg IV q.4 h. p.r.n. 9. Vitamin D3, 2000 international units p.o. daily. REVIEW OF SYSTEMS: Constitutional: No history of chills, fever, or night sweats, history of weight loss. HEENT: No history of headaches, diplopia, blurred vision reported. No history of epistaxis, hoarseness, tinnitus. There is history of deafness. Cardiovascular: See history of present illness. Respiratory: No history of cough, expectoration or hemoptysis. Gastrointestinal: No history of nausea, vomiting, melena or hematemesis. History of intermittent abdominal distention. History of constipation. Neurological: No history of seizures, syncope, focal weakness. Denies having recent lightheadedness or dizziness. Musculoskeletal: See history of present illness. No history of myalgias. Endocrine: History of Tucker thyroiditis. No history of intolerance to cold or warm weather. No history of polyuria, polydipsia. Hematological: See history of present illness. History of chronic anemia. History of intermittent ecchymosis, requires periodic blood transfusions. Lymphatics: History of lymphoma. Genitourinary: History of urinary retention. PHYSICAL EXAMINATION: General: An 86-year-old female was in moderate degree of distress. There was slight pallor, no cyanosis, clubbing or jaundice. Vital signs: Blood pressure 141/46 mmHg, pulse 60 beats per minute and regular, respirations 20 per minute, temperature 98.8 degrees Fahrenheit. Neck: Supple. No jugulovenous distention, carotids were equal, upstrokes were normal, no bruits were heard, and no thyromegaly was appreciated. Heart: No heaves or thrills . PMI was in the 5th intercostal space. S1 and S2 were normal. Nonejection systolic click was heard along the left sternal border and apex, grade 1/6 systolic murmur. No diastolic murmur or gallops were heard. Lungs: Clear on auscultation. Abdomen: Soft and nontender. No hepatosplenomegaly or palpable masses were felt. Bowel sounds were hypoactive. No bruits were heard . Extremities: Trace ankle edema. No calf tenderness was elicited. There were varicosities. Femoral pulses were 2+, dorsalis pedis posterior tibial pulses were 1+. LABORATORY DATA: CBC: WBC count 5900. Hemoglobin was 8.6 g/dL . Platelet count was 388,000. On admission was 547,000. Chemistry on August 12: Sodium 137, potassium 3.8, chloride 99, CO2 of 30 mmol/L. BUN 20, creatinine 0.7 mg/dL. AST 16, ALT 25, alkaline phosphatase 110. EKG is not available. IMPRESSION: 1. Hypertension, currently normotensive. 2. History of paroxysmal atrial fibrillation. 3. History of ventricular premature beats. 4. Chronic anemia. 5. Thrombocytosis. 6. History of depression, currently in remission. 7. History of lymphoma. 8. Vertebral fractures. 9. Osteoporosis. 10. History of mitral valvular disease, mitral valve prolapse. 11. History of portal vein thrombosis. 12 . Status post ascites and pedal edema related to portal vein thrombosis. RECOMMENDATION: 1. Continue current medications. 2 . T3, T4, TSH. 3 . Consider resumption of lidocaine patch. 4. Consider cautious ambulation when surgically stable. 5. Follow up CBC. Thank you for your referral. SHAKIR GAUTAM M.D. [id number]
[2017-08-13] MEDS: clonazePAM 0.5 MG TABLET PO SCH ×3 (06:19→21:42)
[2017-08-13 07:31] LABS: MCH 25.7 pg (25.7-33.7); MCHC 32.2 g/dl (32.0-36.0); MEAN CELL VOLUME 79.9 fl (80-96); MEAN PLT VOLUME 7.6 fl (7.5-11.1); PLATELET COUNT 328 K/MM3 (134-434); RDW 16.9 % (11.6-15.6); WHITE BLOOD COUNT 4.9 K/mm3 (4.0-10.0)
[2017-08-13 07:51] LABS: ANION GAP 9 (8-16); CALCIUM 8.3 mg/dL (8.5-10.1); CO2 27 mmol/L (21-32); CREATININE 0.7 mg/dL (0.55-1.02); GLUCOSE,RANDOM 73 mg/dL (74-106)
[2017-08-13] MEDS: morphine CARPU-JECT 2 MG/1 ML DISP.SYRIN IVPUSH PRN ×2 (08:26→15:21)
--- NOTE | 2017-08-13 08:48 | PN ---
Physical Exam: SUBJECTIVE: Patient seen and examined at bedside. back pain is controlled with pain medicine. no bm yet on miralax, denies gever, chells N/V/D. Denies Numbness , weakness, tingling in all ext. OBJECTIVE: Vital Signs Period Temp Pulse Resp BP Sys/Conde Pulse Ox Last 24 Hr 98.1 F-99.1 F 52-61 18-20 122-145/44-58 95-96 GENERAL: The patient is awake, alert, and fully oriented, in mild distress. HEAD: Normal with no signs of trauma. EYES: sclera anicteric, conjunctiva pallor . No ptosis. ENT: moist mucous membranes. LUNGS: Breath sounds equal, clear to auscultation bilaterally, no wheezes, no crackles, no accessory muscle use. HEART: Regular rate and rhythm, S1, S2 without murmur, rub or gallop. ABDOMEN: Soft, nontender, distended, normoactive bowel sounds, no guarding, no rebound, logan in place. EXTREMITIES: 2+ pulses, warm, well-perfused, no edema. NEUROLOGICAL: Good mentation, strength 5/5 in all ext, sensation intact, hyporeflexia in lower ext . PSYCH: Normal mood, normal affect. SKIN: Warm, dry, no rashes or lesions noted Laboratory Results - last 24 hr 08/11/17 08/11/17 08/11/17 18:48 19:45 23:32 WBC RBC Hgb Hct MCV MCH MCHC RDW Plt Count MPV Sodium Potassium Chloride Carbon Dioxide Anion Gap BUN Creatinine POC Glucometer [phone] Random Glucose Calcium Urine Color Ltyellow Urine Appearance Slcloudy Urine pH 6.0 Ur Specific Blackstone 1.010 Urine Protein 1+ H Urine Glucose (UA) Negative Urine Ketones Negative Urine Blood 1+ H Urine Nitrite Negative Urine Bilirubin Negative Urine Urobilinogen Negative Ur Leukocyte Esterase Negative Urine RBC <1 Urine WBC 1 Calcium Oxalate Crystal Rare Urine Bacteria Rare Blood Type AB POSITIVE Antibody Screen Negative Crossmatch See Detail 08/12/17 08/13/17 08/13/17 18:20 06:00 06:00 WBC 5.9 4.9 RBC 3.33 L 3.23 L Hgb 8.6 L D 8.3 L Hct 26.8 L D 25.9 L MCV 80.6 79.9 L MCH 25.8 25.7 MCHC 32.0 32.2 RDW 16.8 H 16.9 H Plt Count 388 328 MPV 7.9 7.6 Sodium 138 Potassium 4.1 Chloride 102 Carbon Dioxide 27 Anion Gap 9 BUN 22 H Creatinine 0.7 POC Glucometer Random Glucose 73 L Calcium 8.3 L Urine Color Urine Appearance Urine pH Ur Specific Blackstone Urine Protein Urine Glucose (UA) Urine Ketones Urine Blood Urine Nitrite Urine Bilirubin Urine Urobilinogen Ur Leukocyte Esterase Urine RBC Urine WBC Calcium Oxalate Crystal Urine Bacteria Blood Type Antibody Screen Crossmatch Active Medications Generic Name Dose Route Start Last Admin Trade Name Freq PRN Reason Stop Dose Admin Acetaminophen 650 mg 08/11/17 19:05 08/12/17 13:13 Tylenol - PO 650 mg Q4H PRN Administration FEVER OR PAIN Amlodipine Besylate 10 mg 08/12/17 10:00 Norvasc - PO DAILY MARGARITA Cholecalciferol 2,000 unit 08/12/17 10:00 08/12/17 09:47 Vitamin D3 - PO 2,000 unit DAILY MARGARITA Administration Clonazepam 0.25 mg 08/11/17 22:00 08/13/17 06:19 Klonopin - PO 0.25 mg TID MARGARITA Administration Hydroxyurea 500 mg 08/12/17 10:00 08/12/17 09:51 Hydrea - PO 500 mg DAILY MARGARITA Administration Lactobacillus Acidophilus 1 tab 08/12/17 10:00 08/12/17 09:47 Bacid - PO 1 tab DAILY MARGARITA Administration Morphine Sulfate 2 mg 08/11/17 23:45 08/13/17 08:26 Morphine Injection - IVPUSH 2 mg Q4H PRN Administration PAIN Polyethylene Glycol 17 gm 08/12/17 11:30 08/12/17 17:42 Miralax (For Daily Use) - PO 17 gm DAILY MARGARITA Administration Ranitidine HCl 150 mg 08/12/17 10:00 08/12/17 09:47 Zantac - PO 150 mg DAILY MARGARITA Administration Sotalol HCl 120 mg 08/11/17 22:00 08/12/17 21:05 Betapace - PO 120 mg BID MARGARITA Administration CBC, BMP 08/13/17 06:00 08/13/17 06:00 CT LS spine : minimal T12 sup endplate depression; diffuse osteopenia; moderate L3-4 and L4-[address] T/LS spine : 65-70% reduction of anterior T12 vertebral height; posterior inferior T12 endplate retropulsion; 20-25% hyphosis T11-L1; 35% anterior central canal impingement inf T12 related to burst fx; minimal kyphosis ; modereate L3-4 and L4-5 central and lateral recess stenosis T12 osteoporotic burst fx with minimal if any focal deficit; burst fx generally successfully heal and remodel with time ASSESSMENT/PLAN: 86yo F hx HTN, lymphoma, al's, GERD, thrombocytopenia, portal vein thrombosis presented to the ED with 5 days of worsening Lower back pain. Pt had a T12 compression fracture 4 months ago, was in rehab for 4 months. Today presented with sever back pain was found to have urinary retention and compression fracture and was admitted for further evaluation. # cord compression at T12 due to burst compression fracture * CT scan reviewed shows 50 % effacement of spinal canal at T12 * MRI lumbar spine , pt was not able to sit settled in the MRI X3 , * pain killer with Morphine 2 mg IVPUSH Q 4hr * advance diet to low sodium diet * Neurosurgery consultation , * Hematology, and cardiology consultation to optimize for surgery and risk stratification * fall precautions * Hematology consider high risk for surgery due to bleeding/clotting * Pulmonary no contraindication but high risk for surgery * Plan to proceed with conservative treatment , pain management , PT, epidural steroid and kyphoplasty consider she is at high risk for surgery. Urinary retention 2/2 cord compression at T12 * She feels the urge but not able to empty her bladder * Bladder scan >342 cc at admission * maintain Logan # Constipation 2/2 meds vs immobile * no BM yet * start Miralax 17 po daily and Colace 100 BID * * # Hyponatremia, likley 2/2 low oral intake , resolved * Repeat CMP in AM * advance her diet to low sodium diet due to HTN # HTN * normotensive * Hold lasix * continue Amlodipine 10 mg PO daily, * # Lymphoma , Malt * Hematology on the board * can follow as out patient * continue home meds #Paroxysmal afib * c/w sotalol 120 po daily ; * continue Lovenox 80 mg daily * consider to hold if surgery confirmed # PMF from ET * acute drop in Hgb with no signs of bleeding. * S/p transfuse 1 unit PRBC. goal Hgb >8. H/H 8.3/25.9 today * cont hydroxyurea. 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 - New Patient This patient is new to me today: No - Critical Care Critical Care patient: No - Discharge Referral Referred to [facility] No
[2017-08-13] MEDS: LACTOBACILLUS ACIDOPHILUS 1 EACH TAB (FP) PO SCH (10:13)
[2017-08-13] MEDS: CHOLECALCIFEROL (VITAMIN D3) 1,000 UNIT TABLET (FP) PO SCH (10:13)
[2017-08-13] MEDS: amLODIPine BESYLATE 10 MG TABLET (FP) PO SCH (10:13)
[2017-08-13] MEDS: SOTALOL HCL 80 MG TABLET (FP) PO SCH ×2 (10:13→21:41)
[2017-08-13] MEDS: POLYETHYLENE GLYCOL 3350 119 GM BTL PO SCH (10:14)
[2017-08-13] MEDS: RANITIDINE HCL 150 MG TABLET (FP) PO SCH (10:14)
[2017-08-13] MEDS: HYDROXYUREA 500 MG CAPSULE PO SCH (10:15)
--- NOTE | 2017-08-13 10:44 | CONS ---
DATE OF CONSULTATION: 08/12/2017 CHIEF COMPLAINT: Lower back pain with T12 osteoporotic burst fracture. HISTORY OF PRESENT ILLNESS: The patient is an 86-year-old, right-handed female with a history of Tucker thyroiditis, lymphoma status post radiation treatment, hypertension, osteoporosis, thrombocytopenia, cerebral vein thrombosis, and paroxysmal atrial fibrillation, with complaints of 5+ day history of recurrent lower back pain. She had fallen in early May and was admitted to the hospital at that time. She was found to have a minimal T12 superior endplate fracture at that time, less than 10%. She had declined a TLSO brace at that time. She subsequently went on to rehab and experienced improvement in her pain. She was doing well at home, but had bent and suddenly picked up object from the floor. She denied further fall or trauma. She started experiencing pain radiating across her iliac crests bilaterally. The pain is mostly right sided. There is no leg weakness or numbness/ tingling. She denies any bowel or bladder incontinence. She did have some constipation. She has been on narcotic pain killers, which was not effective. She may have developed urinary retention as a result. She has baseline anemia as well. Presently, her pain is rated at 10 on a 1-10 pain scale. It is worse with movement. She has difficulty getting out of bed. PAST MEDICAL HISTORY: Significant for Tucker's thyroiditis, hypertension, portal vein thrombosis, paroxysmal atrial fibrillation on current anticoagulation, lymphoma, thrombocytopenia, T12 osteoporotic fracture. CURRENT MEDICATIONS: Tylenol, hydroxyurea, Klonopin, Betapace, MiraLAX, Norvasc, Zantac, morphine, and vitamin D3. ALLERGIES: PROPOXYPHENE, ASPIRIN, HYDROMORPHONE. SOCIAL HISTORY: She does not smoke or drink. She is retired. She lives at home with her family. REVIEW OF SYSTEMS: Otherwise negative for other major significant constitutional, head and neck, cardiovascular, pulmonary, gastrointestinal, genitourinary, endocrinologic, neurologic, or psychological problem except for the above. She denies any history of systemic malignancy. PHYSICAL EXAMINATION: General: She is awake and alert. She is sitting up in bed. Vital signs: Temperature 98.8, blood pressure 122/44, pulse rate of 56, O2 saturations are 96% on room air. HEENT: Head is normocephalic, atraumatic. Anicteric. NECK: Supple with no lymphadenopathy. No carotid bruits. CORE: Demonstrated irregular rhythm. LUNGS: Clear bilaterally. She does have decreased breath sounds at the bases. ABDOMEN: Benign. EXTREMITIES: Examination shows no obvious signs of DVT. She has some chronic venous changes as well as some atrophic changes. Distal pulses are symmetrically diminished. NEUROLOGIC: She is awake and alert, oriented x4. Cranial nerves examination is intact 2-12. Motor examination shows at least 4+/5 strength in the bilateral upper and lower extremities. Sensory examination is intact to light touch. Deep tendon reflexes are hyporeflexic throughout. There is no pathologic sign. BACK: Examination of her back shows minimal kyphosis over the thoracolumbar junction. She has tenderness in the lumbosacral junction bilaterally, right greater than left. There is mild paraspinal muscle spasm as well. LABORATORY: Examination shows a white blood cell count of 4.8, hemoglobin 7.3, hematocrit 23.2, platelet count 349,000, INR is 1.16, PTT is 36.3, serum sodium is 137, potassium is 3.8, BUN is 20, creatinine is 0.7. LFTs are normal. Albumin is 3.3. Random glucose is 79, calcium is 8.7. CT scan of the lumbar spine from May was reviewed and it demonstrated diffuse osteopenia. There is mild to moderate spondylosis throughout as well. Additionally, there is mild superior T12 endplate flattening. CT scan of the thoracic and lumbar spine from yesterday were reviewed and they demonstrated progression of the T12 fracture with a burst fracture, especially inferior endplate of T12 with some posterior retropulsion, impinging approximately 35% of the spinal canal centrally. There is no severe stenosis at any level. There is chronic T3 and T4 vertebral compression deformity. There is additionally moderate stenosis at L3-L4 and L4-L5 involving the lateral recess and the proximal neural foramen. IMPRESSION: 1. T12 osteoporotic burst fracture with retropulsion of inferior endplate of T12, resulting in mild to moderate canal stenosis. 2. Multilevel lumbar degenerative disc disease with moderate spinal stenosis. 3. Paroxysmal atrial fibrillation. 4. History of portal vein thrombosis. 5. Hypertension. 6. Tucker thyroiditis. 7. History of lymphoma, status post radiation treatment. 8. Anemia. RECOMMENDATIONS: The patient presents with recurrent back pain of approximately 5 days' duration. She had previously sustained a mild T12 vertebral fracture secondary to osteoporosis. Her pain had initially improved after rehabilitation, but the pain has recurred over the last few days. She denies any new onset trauma or falls. She likely has reinjured herself in the interim unfortunately. Presently, she has minimal neurological deficit. She does have some urinary retention, which might be the result of narcotic pain killers more than anything else. There is no severe canal compromise at any level. The patient was previously offered a TLSO brace , but had declined the use of it previously. She can consider that option at this time if she wishes. Currently she has approximately 20-25 degrees of kyphosis over T12 and about 35% canal compromise secondary to the osteoporotic burst fracture. Generally such burst fractures can heal and remodel with the passage of time. She is at significantly increased medical risk to undergo any surgical intervention, given her history of paroxysmal atrial fibrillation and portal vein thrombosis, as well as her age. Additionally, she is significantly osteoporotic and any metallic instrumentation/fixation system placement would have difficulty achieving spinal stability. I do not recommend neurosurgical intervention at this time. The patient can consider a course of pain management injection with facet blocks at T12-L1 and/or vertebroplasty. The goal is pain control at this time as I do not believe the patient has significant neurological deficit at this time. The pros and cons of treatment approaches were discussed with the patient in detail at bedside. All questions were answered. I did inform the patient that I merely am providing a second opinion for her at the request of Dr. Escalera. NATHAN URENA M.D. [id number] MTDD
--- NOTE | 2017-08-13 11:20 | PN ---
Progress Note (short form) - Note Progress Note: patient seen and examined. Pt continues to have pain. Chart reviewed. All consult notes noted. O/E: General: In pain when moves Head: NCAT HEART: S1S2, RRR LUNGS: Clear ABDOMEN: Soft, mildly distended, logan catheter in place EXTREMITIES: No edema Temp Pulse Resp BP Pulse Ox 98.3 F 57 L 20 155/54 95 08/13/17 10:17 08/13/17 10:17 08/13/17 10:17 08/13/17 10:17 08/12/17 21:00 CBC, BMP 08/13/17 06:00 08/13/17 06:00 Current Medications Generic Name Dose Route Start Last Admin Trade Name Freq PRN Reason Stop Dose Admin Acetaminophen 650 mg 08/11/17 19:05 08/12/17 13:13 Tylenol - PO 650 mg Q4H PRN Administration FEVER OR PAIN Amlodipine Besylate 10 mg 08/12/17 10:00 08/13/17 10:13 Norvasc - PO 10 mg DAILY MARGARITA Administration Cholecalciferol 2,000 unit 08/12/17 10:00 08/13/17 10:13 Vitamin D3 - PO 2,000 unit DAILY MARGARITA Administration Clonazepam 0.25 mg 08/11/17 22:00 08/13/17 06:19 Klonopin - PO 0.25 mg TID MARGARITA Administration Docusate Sodium 100 mg 08/13/17 10:12 Colace - PO BID PRN CONSTIPATION Hydroxyurea 500 mg 08/12/17 10:00 08/13/17 10:15 Hydrea - PO 500 mg DAILY MARGARITA Administration Lactobacillus Acidophilus 1 tab 08/12/17 10:00 08/13/17 10:13 Bacid - PO 1 tab DAILY MARGARITA Administration Morphine Sulfate 2 mg 08/11/17 23:45 08/13/17 08:26 Morphine Injection - IVPUSH 2 mg Q4H PRN Administration PAIN Polyethylene Glycol 17 gm 08/12/17 11:30 08/13/17 10:14 Miralax (For Daily Use) - PO 17 gm DAILY MARGARITA Administration Ranitidine HCl 150 mg 08/12/17 10:00 08/13/17 10:14 Zantac - PO 150 mg DAILY MARGARITA Administration Sotalol HCl 120 mg 08/11/17 22:00 08/13/17 10:13 Betapace - PO 120 mg BID MARGARITA Administration Assessment/Plan: 86 y/o patient with HTN, MVP, afib, essential thrombocytosis/myelofibrosis, transfusion dependency, ironoverload, abnormal liver MRI ? lesions vs signal abnormality, recent portal/SMV thrombosis, MALT lymphoma s/p RT,s/p recent fall 05/20 with vertebral compression fx and preferred conservative management that day. Now comes in with worsening back pain worsening compression fx, urinary retention, conus medullaris compression Now conservative management preferred. Pain control IRconsulted, likely will get the procedure once films are reviewed by IR. SMV/portal thrombosis-- failed coumadin on lovenox 80 mg SC daily , On hold for procedure now. ET/myelofibrosis continue hydrea monitor CBC transfuse prn MALT lymphoma--s/p RT
--- NOTE | 2017-08-13 11:52 | PN ---
Teaching Attending Note Name of Resident: Milton Vickers ATTENDING PHYSICIAN STATEMENT I saw and evaluated the patient. I reviewed the resident's note and discussed the case with the resident. I agree with the resident's findings and plan as documented. SUBJECTIVE: Patient complains of pain in her right low back. OBJECTIVE: Vital Signs Period Temp Pulse Resp BP Sys/Conde Pulse Ox Last 24 Hr 98.1 F-99.1 F 52-61 18-20 122-155/44-58 95 HEART: S1S2, RRR LUNGS: Clear ABDOMEN: Soft, non-tender, non-distended, normal BS EXTREMITIES: No edema Current Medications Generic Name Dose Route Start Last Admin Trade Name Freq PRN Reason Stop Dose Admin Acetaminophen 650 mg 08/11/17 19:05 08/12/17 13:13 Tylenol - PO 650 mg Q4H PRN Administration FEVER OR PAIN Amlodipine Besylate 10 mg 08/12/17 10:00 08/13/17 10:13 Norvasc - PO 10 mg DAILY MARGARITA Administration Cholecalciferol 2,000 unit 08/12/17 10:00 08/13/17 10:13 Vitamin D3 - PO 2,000 unit DAILY MARGARITA Administration Clonazepam 0.25 mg 08/11/17 22:00 08/13/17 06:19 Klonopin - PO 0.25 mg TID MARGARITA Administration Docusate Sodium 100 mg 08/13/17 10:12 Colace - PO BID PRN CONSTIPATION Hydroxyurea 500 mg 08/12/17 10:00 08/13/17 10:15 Hydrea - PO 500 mg DAILY MARGARITA Administration Lactobacillus Acidophilus 1 tab 08/12/17 10:00 08/13/17 10:13 Bacid - PO 1 tab DAILY MARGARTIA Administration Morphine Sulfate 2 mg 08/11/17 23:45 08/13/17 08:26 Morphine Injection - IVPUSH 2 mg Q4H PRN Administration PAIN Polyethylene Glycol 17 gm 08/12/17 11:30 08/13/17 10:14 Miralax (For Daily Use) - PO 17 gm DAILY MARGARITA Administration Ranitidine HCl 150 mg 08/12/17 10:00 08/13/17 10:14 Zantac - PO 150 mg DAILY MARGARITA Administration Sotalol HCl 120 mg 08/11/17 22:00 08/13/17 10:13 Betapace - PO 120 mg BID MARGARITA Administration ASSESSMENT AND PLAN: This is an 86 year old woman with a history of HTN, MALT lymphoma, PAF, Tucker's thyroiditis, essential thrombocytosis with myelofibrosis, recent portal vein/SMV thrombosis, recent T12 compression fracture, GERD who presented to the ER with back pain. 1. Back pain secondary to T12 compression fracture with conus medullaris compression - Since patient is a poor surgical candidate, at this time will treat conservatively with TLSO brace, physical therapy - Evaluation for vertebroplasty 2. HTN - Continue Norvasc - Lasix held secondary to dehydration 3. PAF - Remains in sinus rhythm - Continue Sotalol 4. Essential thrombocytosis with myelofibrosis - Transfused 1 unit PRBCs - Maintain hemoglobin > 8.0 - Continue Hydrea, Procrit 5. Portal vein/SMV thrombosis - Failed Coumadin treatment - Continue Lovenox (held for possible vertebroplasty) 6. MALT lymphoma 7. History of Tucker's thyroiditis 8. GERD - Continue Zantac
--- NOTE | 2017-08-13 12:03 | PN ---
Progress Note (short form) - Note Progress Note: Still with LBP. Noted NS second opinion. Due to high medical risk will be managed conservatively. Intake & Output 08/10/17 08/11/17 08/12/17 08/13/17 23:59 23:59 23:59 23:59 Intake Total 300 Output Total 1050 900 600 Balance -1050 -600 -600 Weight 108 lb Last Vital Signs Temp Pulse Resp BP Pulse Ox 98.3 F 57 L 20 155/54 95 08/13/17 10:08/13/17 10:17 08/13/17 10:08/13/17 10:08/12/17 21:00 Active Medications Acetaminophen (Tylenol -) 650 mg PO Q4H PRN PRN Reason: FEVER OR PAIN Last Admin: 08/12/17 13:13 Dose: 650 mg Amlodipine Besylate (Norvasc -) 10 mg PO DAILY [facility] Last Admin: 08/13/17 10:13 Dose: 10 mg Cholecalciferol (Vitamin D3 -) 2,000 unit PO DAILY [facility] Last Admin: 08/13/17 10:13 Dose: 2,000 unit Clonazepam (Klonopin -) 0.25 mg PO TID [facility] Last Admin: 08/13/17 06:19 Dose: 0.25 mg Docusate Sodium (Colace -) 100 mg PO BID PRN PRN Reason: CONSTIPATION Enoxaparin Sodium (Lovenox -) 80 mg SQ DAILY [facility] Hydroxyurea (Hydrea -) 500 mg PO DAILY [facility] Last Admin: 08/13/17 10:15 Dose: 500 mg Lactobacillus Acidophilus (Bacid -) 1 tab PO DAILY [facility] Last Admin: 08/13/17 10:13 Dose: 1 tab Morphine Sulfate (Morphine Injection -) 2 mg IVPUSH Q4H PRN PRN Reason: PAIN Last Admin: 08/13/17 08:26 Dose: 2 mg Polyethylene Glycol (Miralax (For Daily Use) -) 17 gm PO DAILY [facility] Last Admin: 08/13/17 10:14 Dose: 17 gm Ranitidine HCl (Zantac -) 150 mg PO DAILY [facility] Last Admin: 08/13/17 10:14 Dose: 150 mg Sotalol HCl (Betapace -) 120 mg PO BID [facility] Last Admin: 08/13/17 10:13 Dose: 120 mg Constitutional: Yes: No Distress, Thin Eyes: Yes: Conjunctiva Clear, EOM Intact HENT: Yes: Atraumatic, Normocephalic Neck: Yes: Supple, Trachea Midline Cardiovascular: Yes: Regular Rate and Rhythm Respiratory: Yes: Regular, CTA Bilaterally ...Clubbing: No Gastrointestinal: Yes: Normal Bowel Sounds, Soft Renal/: Yes: WNL Musculoskeletal: Yes: Back Pain Extremities: Yes: WNL Edema: No Peripheral Pulses WNL: Yes Integumentary: Yes: WNL Neurological: Yes: Alert, Oriented ...Motor Strength: WNL Psychiatric: Yes: WNL, Alert, Oriented Labs: Laboratory Results - last 24 hr 08/11/17 08/11/17 08/12/17 18:48 19:45 18:20 WBC 5.9 RBC 3.33 L Hgb 8.6 L D Hct 26.8 L D MCV 80.6 MCH 25.8 MCHC 32.0 RDW 16.8 H Plt Count 388 MPV 7.9 Sodium Potassium Chloride Carbon Dioxide Anion Gap BUN Creatinine POC Glucometer [phone] Random Glucose Calcium Blood Type AB POSITIVE Antibody Screen Negative Crossmatch See Detail 08/13/17 08/13/17 06:00 06:00 WBC 4.9 RBC 3.23 L Hgb 8.3 L Hct 25.9 L MCV 79.9 L MCH 25.7 MCHC 32.2 RDW 16.9 H Plt Count 328 MPV 7.6 Sodium 138 Potassium 4.1 Chloride 102 Carbon Dioxide 27 Anion Gap 9 BUN 22 H Creatinine 0.7 POC Glucometer Random Glucose 73 L Calcium 8.3 L Blood Type Antibody Screen Crossmatch Problem List - Problems (1) Compression fracture of lumbar vertebra Code(s): S32.000A - WEDGE COMPRESSION FRACTURE OF UNSP LUMBAR VERTEBRA, INIT Qualifiers: Encounter type: initial encounter Fracture type: closed (2) Anxiety Code(s): F41.9 - ANXIETY DISORDER, UNSPECIFIED (3) GERD (gastroesophageal reflux disease) Code(s): K21.9 - GASTRO-ESOPHAGEAL REFLUX DISEASE WITHOUT ESOPHAGITIS (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 (5) History of Coumadin therapy Code(s): Z79.01 - FPC (CURRENT) USE OF 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 (6) Hypertension Code(s): I10 - ESSENTIAL (PRIMARY) HYPERTENSION (7) MALT lymphoma Code(s): C88.4 - EXTRNOD MRGNL ZN B-CELL LYMPH OF [place]UCOS[place]-ASSOC LYMPHOID TISS (8) Myelodysplastic syndrome Code(s): D46.9 - MYELODYSPLASTIC SYNDROME, UNSPECIFIED (9) Myeloproliferative disease Code(s): D47.1 - CHRONIC MYELOPROLIFERATIVE DISEASE (10) Depression Code(s): F32.9 - MAJOR DEPRESSIVE DISORDER, SINGLE EPISODE, UNSPECIFIED Qualifiers: Depression Type: other depression Qualified Code(s): F32.89 - Other specified depressive episodes; F32.89 - Other specified depressive episodes; F32.89 - Other specified depressive episodes (11) Lymphoma Code(s): C85.90 - NON-HODGKIN LYMPHOMA, UNSPECIFIED, UNSPECIFIED SITE (12) A-fib Code(s): I48.91 - UNSPECIFIED ATRIAL FIBRILLATION Qualifiers: Atrial fibrillation type: paroxysmal Qualified Code(s): I48.0 - Paroxysmal atrial fibrillation; I48.0 - Paroxysmal atrial fibrillation; I48.0 - Paroxysmal atrial fibrillation; I48.0 - Paroxysmal atrial fibrillation (13) History of Tucker thyroiditis Code(s): Z86.39 - PERSONAL HISTORY OF ENDO, NUTRITIONAL AND METABOLIC DISEASE (14) Mitral valve prolapse syndrome Code(s): I34.1 - NONRHEUMATIC MITRAL (VALVE) PROLAPSE (15) Paroxysmal a-fib Code(s): I48.0 - PAROXYSMAL ATRIAL FIBRILLATION (16) Portal vein thrombosis Code(s): I81 - PORTAL VEIN THROMBOSIS (17) Vertigo Code(s): R42 - DIZZINESS AND GIDDINESS Assessment/Plan Medical management of LBP Pain management O2 as needed Continue Dr Zuleta Problem List - Problems (1) Compression fracture of lumbar vertebra Code(s): S32.000A - WEDGE COMPRESSION FRACTURE OF UNSP LUMBAR VERTEBRA, INIT Qualifiers: Encounter type: initial encounter Fracture type: closed (2) Anxiety Code(s): F41.9 - ANXIETY DISORDER, UNSPECIFIED (3) GERD (gastroesophageal reflux disease) Code(s): K21.9 - GASTRO-ESOPHAGEAL REFLUX DISEASE WITHOUT ESOPHAGITIS (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 (5) History of Coumadin therapy Code(s): Z79.01 - FPC (CURRENT) USE OF 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 (6) Hypertension Code(s): I10 - ESSENTIAL (PRIMARY) HYPERTENSION (7) MALT lymphoma Code(s): C88.4 - EXTRNOD MRGNL ZN B-CELL LYMPH OF MUCOS[place] LYMPHOID TISS (8) Myelodysplastic syndrome Code(s): D46.9 - MYELODYSPLASTIC SYNDROME, UNSPECIFIED (9) Myeloproliferative disease Code(s): D47.1 - CHRONIC MYELOPROLIFERATIVE DISEASE (10) Depression Code(s): F32.9 - MAJOR DEPRESSIVE DISORDER, SINGLE EPISODE, UNSPECIFIED Qualifiers: Depression Type: other depression Qualified Code(s): F32.89 - Other specified depressive episodes; F32.89 - Other specified depressive episodes; F32.89 - Other specified depressive episodes (11) Lymphoma Code(s): C85.90 - NON-HODGKIN LYMPHOMA, UNSPECIFIED, UNSPECIFIED SITE (12) A-fib Code(s): I48.91 - UNSPECIFIED ATRIAL FIBRILLATION Qualifiers: Atrial fibrillation type: paroxysmal Qualified Code(s): I48.0 - Paroxysmal atrial fibrillation; I48.0 - Paroxysmal atrial fibrillation; I48.0 - Paroxysmal atrial fibrillation; I48.0 - Paroxysmal atrial fibrillation (13) History of Tucker thyroiditis Code(s): Z86.39 - PERSONAL HISTORY OF ENDO, NUTRITIONAL AND METABOLIC DISEASE (14) Mitral valve prolapse syndrome Code(s): I34.1 - NONRHEUMATIC MITRAL (VALVE) PROLAPSE (15) Paroxysmal a-fib Code(s): I48.0 - PAROXYSMAL ATRIAL FIBRILLATION (16) Portal vein thrombosis Code(s): I81 - PORTAL VEIN THROMBOSIS (17) Vertigo Code(s): R42 - DIZZINESS AND GIDDINESS
[2017-08-13] MEDS: ENOXAPARIN NA (PORCINE) 80 MG/0.8 ML DISP.SYRIN SQ SCH (13:27)
[2017-08-13] MEDS: DOCUSATE SODIUM 100 MG CAPSULE (FP) PO PRN (21:42)
[2017-08-13] MEDS: ACETAMINOPHEN 325 MG TABLET (FP) PO PRN (21:45)
[2017-08-14] MEDS: clonazePAM 0.5 MG TABLET PO SCH ×3 (06:36→21:15)
[2017-08-14 07:12] LABS: MCH 25.7 pg (25.7-33.7); MCHC 31.9 g/dl (32.0-36.0); MEAN CELL VOLUME 80.6 fl (80-96); MEAN PLT VOLUME 7.5 fl (7.5-11.1); PLATELET COUNT 346 K/MM3 (134-434); WHITE BLOOD COUNT 5.8 K/mm3 (4.0-10.0)
[2017-08-14] MEDS ORDERED: SENNOSIDES 8.6MG TABLET (FP) PO PRN (08:06)
[2017-08-14 08:18] LABS: ANION GAP 9 (8-16); CALCIUM 8.6 mg/dL (8.5-10.1); CO2 26 mmol/L (21-32); CREATININE 0.7 mg/dL (0.55-1.02); GLUCOSE,RANDOM 79 mg/dL (74-106)
--- NOTE | 2017-08-14 09:41 | PN ---
Progress Note (short form) - Note Progress Note: Pt seen and examined. She reiterates she is in pain, in her low back. She denies severe neurologic symptoms in either lower extremity at the moment. I am recommending pain control and Physical Therapy, as per her neurosurgeon(s). Will follow as needed.
--- NOTE | 2017-08-14 10:26 | PN ---
Teaching Attending Note Name of Resident: Milton Vickers ATTENDING PHYSICIAN STATEMENT I saw and evaluated the patient. I reviewed the resident's note and discussed the case with the resident. I agree with the resident's findings and plan as documented. SUBJECTIVE: Patient continues to have pain in her lower back. OBJECTIVE: Vital Signs Period Temp Pulse Resp BP Sys/Conde Pulse Ox Last 24 Hr 97.9 F-98.8 F 54-68 18-20 138-155/50-63 94 HEART: S1S2, RRR LUNGS: Clear ABDOMEN: Soft, non-tender, non-distended, normal BS EXTREMITIES: No edema Current Medications Generic Name Dose Route Start Last Admin Trade Name Freq PRN Reason Stop Dose Admin Acetaminophen 650 mg 08/11/17 19:05 08/13/17 21:45 Tylenol - PO 650 mg Q4H PRN Administration FEVER OR PAIN Amlodipine Besylate 10 mg 08/12/17 10:00 08/13/17 10:13 Norvasc - PO 10 mg DAILY MARGARITA Administration Cholecalciferol 2,000 unit 08/12/17 10:00 08/13/17 10:13 Vitamin D3 - PO 2,000 unit DAILY MARGARITA Administration Clonazepam 0.25 mg 08/11/17 22:00 08/14/17 06:36 Klonopin - PO 0.25 mg TID MARGARITA Administration Docusate Sodium 100 mg 08/13/17 10:12 08/13/17 21:42 Colace - PO 100 mg BID PRN Administration CONSTIPATION Enoxaparin Sodium 80 mg 08/13/17 11:45 08/13/17 13:27 Lovenox - SQ 80 mg DAILY MARGARITA Administration Hydroxyurea 500 mg 08/12/17 10:00 08/13/17 10:15 Hydrea - PO 500 mg DAILY MARGARITA Administration Lactobacillus Acidophilus 1 tab 08/12/17 10:00 08/13/17 10:13 Bacid - PO 1 tab DAILY MARGARITA Administration Morphine Sulfate 2 mg 08/11/17 23:45 08/13/17 15:21 Morphine Injection - IVPUSH 2 mg Q4H PRN Administration PAIN Polyethylene Glycol 17 gm 08/12/17 11:30 08/13/17 10:14 Miralax (For Daily Use) - PO 17 gm DAILY MARGARITA Administration Ranitidine HCl 150 mg 08/12/17 10:00 08/13/17 10:14 Zantac - PO 150 mg DAILY MARGARITA Administration Senna 2 tab 08/14/17 08:06 Senna - PO HS PRN CONSTIPATION Sotalol HCl 120 mg 08/11/17 22:00 08/13/17 21:41 Betapace - PO 120 mg BID MARGARITA Administration ASSESSMENT AND PLAN: This is an 86 year old woman with a history of HTN, MALT lymphoma, PAF, Tucker's thyroiditis, essential thrombocytosis with myelofibrosis, recent portal vein/SMV thrombosis, recent T12 compression fracture, GERD who presented to the ER with back pain. 1. Back pain secondary to T12 compression fracture with conus medullaris compression - Since patient is a poor surgical candidate, at this time will treat conservatively with TLSO brace, physical therapy - Plan for vertebroplasty 2. HTN - Continue Norvasc - Lasix held secondary to dehydration 3. PAF - Remains in sinus rhythm - Continue Sotalol 4. Essential thrombocytosis with myelofibrosis - Transfused 1 unit PRBCs - Maintain hemoglobin > 8.0 - Continue Hydrea, Procrit 5. Portal vein/SMV thrombosis - Failed Coumadin treatment - Continue Lovenox (held for possible vertebroplasty) 6. MALT lymphoma 7. History of Tucker's thyroiditis 8. GERD - Continue Zantac
[2017-08-14] MEDS: POLYETHYLENE GLYCOL 3350 119 GM BTL PO SCH (10:39)
[2017-08-14] MEDS: SOTALOL HCL 80 MG TABLET (FP) PO SCH ×2 (10:39→21:13)
[2017-08-14] MEDS: amLODIPine BESYLATE 10 MG TABLET (FP) PO SCH (10:43)
[2017-08-14] MEDS: CHOLECALCIFEROL (VITAMIN D3) 1,000 UNIT TABLET (FP) PO SCH (10:43)
[2017-08-14] MEDS: LACTOBACILLUS ACIDOPHILUS 1 EACH TAB (FP) PO SCH (10:44)
[2017-08-14] MEDS: HYDROXYUREA 500 MG CAPSULE PO SCH (10:44)
[2017-08-14] MEDS: RANITIDINE HCL 150 MG TABLET (FP) PO SCH (10:44)
[2017-08-14] MEDS: ENOXAPARIN NA (PORCINE) 80 MG/0.8 ML DISP.SYRIN SQ SCH (10:44)
[2017-08-14] MEDS: DOCUSATE SODIUM 100 MG CAPSULE (FP) PO PRN (10:52)
[2017-08-14] MEDS ORDERED: LIDOCAINE 5% TOPICAL PATCH TP SCH (11:30)
[2017-08-14] MEDS ORDERED: FENTANYL PATCH WASTE TD PRN (11:56)
[2017-08-14] MEDS ORDERED: BISACODYL 10 MG SUPP.RECT RC ONE (11:57)
--- NOTE | 2017-08-14 11:59 | PN ---
Progress Note (short form) - Note Progress Note: patient seen and examined. Pt continues to have pain. Chart reviewed. All consult notes noted. O/E: General: In pain when moves Head: NCAT HEART: S1S2, RRR LUNGS: Clear ABDOMEN: Soft, mildly distended, logan catheter in place EXTREMITIES: No edema Last Vital Signs Temp Pulse Resp BP Pulse Ox 97.6 F 63 20 142/57 95 08/14/17 09:00 08/14/17 15:18 08/14/17 15:18 08/14/17 15:18 08/14/17 09:00 CBC, BMP 08/14/17 06:00 08/14/17 06:00 Current Medications Generic Name Dose Route Start Last Admin Trade Name Freq PRN Reason Stop Dose Admin Acetaminophen 650 mg 08/11/17 19:05 08/13/17 21:45 Tylenol - PO 650 mg Q4H PRN Administration FEVER OR PAIN Amlodipine Besylate 10 mg 08/12/17 10:00 08/14/17 10:43 Norvasc - PO 10 mg DAILY MARGARITA Administration Cholecalciferol 2,000 unit 08/12/17 10:00 08/14/17 10:43 Vitamin D3 - PO 2,000 unit DAILY MARGARITA Administration Clonazepam 0.25 mg 08/11/17 22:00 08/14/17 14:17 Klonopin - PO 0.25 mg TID MARGARITA Administration Docusate Sodium 100 mg 08/13/17 10:12 08/14/17 10:52 Colace - PO 100 mg BID PRN Administration CONSTIPATION Enoxaparin Sodium 80 mg 08/13/17 11:45 08/14/17 10:44 Lovenox - SQ 80 mg DAILY MARGARITA Administration Fentanyl 1 patch 08/14/17 12:00 08/14/17 12:46 Duragesic 12mcg Patch - TD 1 patch Q3D MARGARITA Administration Hydroxyurea 500 mg 08/12/17 10:00 08/14/17 10:44 Hydrea - PO 500 mg DAILY MARGARITA Administration Lactobacillus Acidophilus 1 tab 08/12/17 10:00 08/14/17 10:44 Bacid - PO 1 tab DAILY MARGARITA Administration Miscellaneous 1 each 08/14/17 11:56 Duragesic Patch Waste TD PRN PRN PAIN Morphine Sulfate 2 mg 08/11/17 23:45 08/13/17 15:21 Morphine Injection - IVPUSH 2 mg Q4H PRN Administration PAIN Polyethylene Glycol 17 gm 08/12/17 11:30 08/14/17 10:39 Miralax (For Daily Use) - PO 17 gm DAILY MARGARITA Administration Ranitidine HCl 150 mg 08/12/17 10:00 08/14/17 10:44 Zantac - PO 150 mg DAILY MARGARITA Administration Senna 2 tab 08/14/17 08:06 08/14/17 10:53 Senna - PO 2 tab HS PRN Administration CONSTIPATION Sotalol HCl 120 mg 08/11/17 22:00 08/14/17 10:39 Betapace - PO 120 mg BID MARGARITA Administration Assessment/Plan: 86 y/o patient with HTN, MVP, afib, essential thrombocytosis/myelofibrosis, transfusion dependency, ironoverload, abnormal liver MRI ? lesions vs signal abnormality, recent portal/SMV thrombosis, MALT lymphoma s/p RT,s/p recent fall 05/20 with vertebral compression fx and preferred conservative management that day. Now comes in with worsening back pain worsening compression fx, urinary retention, conus medullaris compression Now conservative management preferred. Pain control IR consulted, spoke with IR , would need pain control first before she could be considered for any procedures. While awaiting pain management, will start with fentanyl patch . for now will focus on pain control. SMV/portal thrombosis-- failed coumadin on lovenox 80 mg SC daily continue until the procedure is confirmed. ET/myelofibrosis continue hydrea monitor CBC transfuse prn MALT lymphoma--s/p RT
[2017-08-14] MEDS: fentaNYL 12mcg/hr PATCH.TD72 TD SCH (12:46)
--- NOTE | 2017-08-14 14:38 | PN ---
Physical Exam: SUBJECTIVE: Patient seen and examined at bedside. Still complain of back pain 8 /10 on morphine and tylenol. no bm yet on miralax and senna , denies fever, chills N/V/D. Denies Numbness, weakness, tingling in all ext. OBJECTIVE: Vital Signs Period Temp Pulse Resp BP Sys/Conde Pulse Ox Last 24 Hr 97.6 F-98.8 F 54-68 18-20 138-155/50-63 94 GENERAL: The patient is awake, alert, and fully oriented, in mild distress. HEAD: Normal with no signs of trauma. EYES: sclera anicteric, conjunctiva pallor . No ptosis. ENT: moist mucous membranes. LUNGS: Breath sounds equal, clear to auscultation bilaterally, no wheezes, no crackles, no accessory muscle use. HEART: Regular rate and rhythm, S1, S2 without murmur, rub or gallop. ABDOMEN: Soft, nontender, distended, normoactive bowel sounds, no guarding, no rebound, logan in place. EXTREMITIES: 2+ pulses, warm, well-perfused, no edema. NEUROLOGICAL: Good mentation, strength 5/5 in all ext, sensation intact, hyporeflexia in lower ext . PSYCH: Normal mood, normal affect. SKIN: Warm, dry, no rashes or lesions noted Laboratory Results - last 24 hr 08/14/17 08/14/17 06:00 06:00 WBC 5.8 RBC 3.28 L Hgb 8.4 L Hct 26.4 L MCV 80.6 MCH 25.7 MCHC 31.9 L RDW 17.0 H Plt Count 346 MPV 7.5 Sodium 137 Potassium 4.4 Chloride 102 Carbon Dioxide 26 Anion Gap 9 BUN 19 H Creatinine 0.7 Random Glucose 79 Calcium 8.6 Active Medications Generic Name Dose Route Start Last Admin Trade Name Freq PRN Reason Stop Dose Admin Acetaminophen 650 mg 08/11/17 19:05 08/13/17 21:45 Tylenol - PO 650 mg Q4H PRN Administration FEVER OR PAIN Amlodipine Besylate 10 mg 08/12/17 10:00 08/14/17 10:43 Norvasc - PO 10 mg DAILY MARGARITA Administration Cholecalciferol 2,000 unit 08/12/17 10:00 08/14/17 10:43 Vitamin D3 - PO 2,000 unit DAILY MARGARITA Administration Clonazepam 0.25 mg 08/11/17 22:00 08/14/17 14:17 Klonopin - PO 0.25 mg TID MARGARITA Administration Docusate Sodium 100 mg 08/13/17 10:12 08/14/17 10:52 Colace - PO 100 mg BID PRN Administration CONSTIPATION Enoxaparin Sodium 80 mg 08/13/17 11:45 08/14/17 10:44 Lovenox - SQ 80 mg DAILY MARGARITA Administration Fentanyl 1 patch 08/14/17 12:00 08/14/17 12:46 Duragesic 12mcg Patch - TD 1 patch Q3D MARGARITA Administration Hydroxyurea 500 mg 08/12/17 10:00 08/14/17 10:44 Hydrea - PO 500 mg DAILY MARGARITA Administration Lactobacillus Acidophilus 1 tab 08/12/17 10:00 08/14/17 10:44 Bacid - PO 1 tab DAILY MARGARITA Administration Miscellaneous 1 each 08/14/17 11:56 Duragesic Patch Waste TD PRN PRN PAIN Morphine Sulfate 2 mg 08/11/17 23:45 08/13/17 15:21 Morphine Injection - IVPUSH 2 mg Q4H PRN Administration PAIN Polyethylene Glycol 17 gm 08/12/17 11:30 08/14/17 10:39 Miralax (For Daily Use) - PO 17 gm DAILY MARGARITA Administration Ranitidine HCl 150 mg 08/12/17 10:00 08/14/17 10:44 Zantac - PO 150 mg DAILY MARGARITA Administration Senna 2 tab 08/14/17 08:06 08/14/17 10:53 Senna - PO 2 tab HS PRN Administration CONSTIPATION Sotalol HCl 120 mg 08/11/17 22:00 08/14/17 10:39 Betapace - PO 120 mg BID MARGARITA Administration ASSESSMENT/PLAN: CT LS spine : minimal T12 sup endplate depression; diffuse osteopenia; moderate L3-4 and L4-[address] T/LS spine : 65-70% reduction of anterior T12 vertebral height; posterior inferior T12 endplate retropulsion; 20-25% hyphosis T11-L1; 35% anterior central canal impingement inf T12 related to burst fx; minimal kyphosis ; modereate L3-4 and L4-5 central and lateral recess stenosis T12 osteoporotic burst fx with minimal if any focal deficit; burst fx generally successfully heal and remodel with time ASSESSMENT/PLAN: 86yo F hx HTN, lymphoma, al's, GERD, thrombocytopenia, portal vein thrombosis presented to the ED with 5 days of worsening Lower back pain. Pt had a T12 compression fracture 4 months ago, was in rehab for 4 months. Today presented with sever back pain was found to have urinary retention and compression fracture and was admitted for further evaluation. # cord compression at T12 due to burst compression fracture * CT scan reviewed shows 50 % effacement of spinal canal at T12 * MRI lumbar spine , pt was not able to sit settled in the MRI X3 , * pain killer with Morphine 2 mg IVPUSH Q 4hr, Tylenol 650 PO Q6 hr * advance diet to low sodium diet * Neurosurgery consultation , , conservative treatment no surgery for now. * Hematology, and cardiology consultation to optimize for surgery and risk stratification * fall precautions * Hematology consider high risk for surgery due to bleeding/clotting * Pulmonary no contraindication but high risk for surgery * Plan to proceed with conservative treatment , pain management , PT, epidural steroid and kyphoplasty consider she is at high risk for surgery. * Blood Cx no growth, Urine Cx no growth. Urinary retention 2/2 cord compression at T12 * She feels the urge but not able to empty her bladder * Bladder scan >342 cc at admission * maintain Logan # Constipation 2/2 meds vs immobile * no BM yet * start Miralax 17 po daily and Colace 100 BID * Start Senna 100 BID, Dulocolax suppository, * Colace 2 tab HS * # Hyponatremia, likley 2/2 low oral intake , resolved * Repeat CMP in AM * advance her diet to low sodium diet due to HTN # HTN * normotensive * Hold lasix * continue Amlodipine 10 mg PO daily, * # Lymphoma , Malt * Hematology on the board * can follow as out patient * continue home meds #Paroxysmal afib * c/w sotalol 120 po daily ; * continue Lovenox 80 mg daily * consider to hold if surgery considered # 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 * S/p transfuse 1 unit PRBC. goal Hgb >8. H/H 8.3/25.9 today * cont hydroxyurea. * procrit as outpatient # Portal vein/SMV thrombosis * on full dose lovenox 80 daily #Anxiety * c/w klonopin 0.25 mg po bid prn for anxiety # GERD, * Continue Zantac # FEN * F :DC IVF * E: Monitor * N: advance to lo sodium diet # Proph * DVT: SCDs, lovenox 80 , consider to hold if decide surgery or procedures * GI : no need for now * PT eval # dispo * Admit to med -surg * hem and cardio on board for risk stratification , high risk for surgery, conservative management for now Visit type - Emergency Visit Emergency Visit: Yes ED Registration Date: 08/11/17 Care time: The patient presented to the Emergency Department on the above date and was hospitalized for further evaluation of their emergent condition. - New Patient This patient is new to me today: No - Critical Care Critical Care patient: No - Discharge Referral Referred to [facility] No
--- NOTE | 2017-08-14 18:33 | PN ---
Progress Note (short form) - Note Progress Note: 86 year old female admitted with severe back pain related to vertebral fracture , h/o osteoporosis, hypertension, paroxysmal atril fibrillation, Tucker's disease, thrombocytosis, myelodysplastic syndrome and lymphoma. Known to have MVP and chest pain syndrome, h/o of VPBs. Patient still c/o back pain, on an analgesic patch. No chest pain or SOB. Loose BM probably related to stool softners. Active Medications Acetaminophen (Tylenol -) 650 mg PO Q4H PRN PRN Reason: FEVER OR PAIN Last Admin: 08/13/17 21:45 Dose: 650 mg Amlodipine Besylate (Norvasc -) 10 mg PO DAILY [facility] Last Admin: 08/14/17 10:43 Dose: 10 mg Cholecalciferol (Vitamin D3 -) 2,000 unit PO DAILY [facility] Last Admin: 08/14/17 10:43 Dose: 2,000 unit Clonazepam (Klonopin -) 0.25 mg PO TID [facility] Last Admin: 08/14/17 14:17 Dose: 0.25 mg Docusate Sodium (Colace -) 100 mg PO BID PRN PRN Reason: CONSTIPATION Last Admin: 08/14/17 10:52 Dose: 100 mg Enoxaparin Sodium (Lovenox -) 80 mg SQ DAILY [facility] Last Admin: 08/14/17 10:44 Dose: 80 mg Fentanyl (Duragesic 12mcg Patch -) 1 patch TD Q3D [facility] Last Admin: 08/14/17 12:46 Dose: 1 patch Hydroxyurea (Hydrea -) 500 mg PO DAILY [facility] Last Admin: 08/14/17 10:44 Dose: 500 mg Lactobacillus Acidophilus (Bacid -) 1 tab PO DAILY [facility] Last Admin: 08/14/17 10:44 Dose: 1 tab Miscellaneous (Duragesic Patch Waste) 1 each TD PRN PRN PRN Reason: PAIN Morphine Sulfate (Morphine Injection -) 2 mg IVPUSH Q4H PRN PRN Reason: PAIN Last Admin: 08/13/17 15:21 Dose: 2 mg Polyethylene Glycol (Miralax (For Daily Use) -) 17 gm PO DAILY [facility] Last Admin: 08/14/17 10:39 Dose: 17 gm Ranitidine HCl (Zantac -) 150 mg PO DAILY [facility] Last Admin: 08/14/17 10:44 Dose: 150 mg Senna (Senna -) 2 tab PO HS PRN PRN Reason: CONSTIPATION Last Admin: 08/14/17 10:53 Dose: 2 tab Sotalol HCl (Betapace -) 120 mg PO BID MARGARITA Last Admin: 08/14/17 10:39 Dose: 120 mg 86 year old female in moderate distress, no pallor or cyanosis,no clubbing or jaundice. Vital Signs - 8 hr 08/14/17 08/14/17 15:18 18:03 Temperature 98.2 F Pulse Rate 63 62 Respiratory 20 18 Rate Blood Pressure 142/57 143/61 NECK: Supple, no JVD, carotids 2+, no bruits. HEART: PMI in the 5th ICS, no heaves or thrills. NEC along the LSB, grade apical systolic murmur, no gallops heard. LUNGS: Clear on auscultation ABDOMEN: Soft, nontender,no organomegaly or palpable masses felt EXTREMITIES: No calf tenderness or dependent edema. CBC, BMP 08/14/17 06:00 08/14/17 06:00 IMPRESSION: 1. Hypertension. 2. Paroxysmal atrial fibrillation,currently in sinus rhythm. 3. Vertebral fracture. 4. MVP. 5. Lymphoma. 6. Thrombocytosis. 7. Myelodysplastic syndrome. 8. H/o VPBs currently in remission. 9. H/o depression, in remission. RECOMMENDATION: 1. Spoke to and considering evaluation by an interventional radiologist. 2. Continue current medications. 3. Supportive care in progress.
[2017-08-14] MEDS ORDERED: LIDOCAINE PATCH REMOVAL MC SCH (22:00)
[2017-08-15] MEDS: clonazePAM 0.5 MG TABLET PO SCH ×3 (05:55→21:37)
[2017-08-15 07:36] LABS: MCH 25.6 pg (25.7-33.7); MCHC 31.7 g/dl (32.0-36.0); MEAN CELL VOLUME 80.8 fl (80-96); MEAN PLT VOLUME 7.7 fl (7.5-11.1); PLATELET COUNT 367 K/MM3 (134-434); RDW 17.4 % (11.6-15.6); WHITE BLOOD COUNT 5.8 K/mm3 (4.0-10.0)
[2017-08-15 07:56] LABS: ANION GAP 8 (8-16); CALCIUM 8.7 mg/dL (8.5-10.1); CO2 26 mmol/L (21-32); GLUCOSE,RANDOM 79 mg/dL (74-106); MAGNESIUM 2.1 mg/dL (1.8-2.4)
[2017-08-15 07:58] LABS: CREATININE 0.6 mg/dL (0.55-1.02)
--- NOTE | 2017-08-15 09:47 | PN ---
Progress Note (short form) - Note Progress Note: Still with LBP. No CP or SOB. Reports that she is awaiing an epidural steroid injection. Intake & Output 08/12/17 08/13/17 08/14/17 08/15/17 23:59 23:59 23:59 23:59 Intake Total 300 Output Total 900 1100 1350 250 Balance -600 -1100 -1350 -250 Last Vital Signs Temp Pulse Resp BP Pulse Ox 98 F 53 L 20 150/60 94 L 08/15/17 06:00 08/15/17 06:00 08/15/17 06:00 08/15/17 06:00 08/14/17 20:35 Active Medications Acetaminophen (Tylenol -) 650 mg PO Q4H PRN PRN Reason: FEVER OR PAIN Last Admin: 08/13/17 21:45 Dose: 650 mg Amlodipine Besylate (Norvasc -) 10 mg PO DAILY [facility] Last Admin: 08/14/17 10:43 Dose: 10 mg Cholecalciferol (Vitamin D3 -) 2,000 unit PO DAILY [facility] Last Admin: 08/14/17 10:43 Dose: 2,000 unit Clonazepam (Klonopin -) 0.25 mg PO TID MARGARITA Last Admin: 08/15/17 05:55 Dose: 0.25 mg Docusate Sodium (Colace -) 100 mg PO BID PRN PRN Reason: CONSTIPATION Last Admin: 08/14/17 10:52 Dose: 100 mg Fentanyl (Duragesic 12mcg Patch -) 1 patch TD Q3D [facility] Last Admin: 08/14/17 12:46 Dose: 1 patch Hydroxyurea (Hydrea -) 500 mg PO DAILY [facility] Last Admin: 08/14/17 10:44 Dose: 500 mg Lactobacillus Acidophilus (Bacid -) 1 tab PO DAILY [facility] Last Admin: 08/14/17 10:44 Dose: 1 tab Miscellaneous (Duragesic Patch Waste) 1 each TD PRN PRN PRN Reason: PAIN Morphine Sulfate (Morphine Injection -) 2 mg IVPUSH Q4H PRN PRN Reason: PAIN Last Admin: 08/13/17 15:21 Dose: 2 mg Polyethylene Glycol (Miralax (For Daily Use) -) 17 gm PO DAILY [facility] Last Admin: 08/14/17 10:39 Dose: 17 gm Ranitidine HCl (Zantac -) 150 mg PO DAILY [facility] Last Admin: 08/14/17 10:44 Dose: 150 mg Senna (Senna -) 2 tab PO HS PRN PRN Reason: CONSTIPATION Last Admin: 08/14/17 10:53 Dose: 2 tab Sotalol HCl (Betapace -) 120 mg PO BID [facility] Last Admin: 08/14/17 21:13 Dose: 120 mg Constitutional: Yes: No Distress, Thin Eyes: Yes: Conjunctiva Clear, EOM Intact HENT: Yes: Atraumatic, Normocephalic Neck: Yes: Supple, Trachea Midline Cardiovascular: Yes: Regular Rate and Rhythm Respiratory: Yes: Regular, CTA Bilaterally ...Clubbing: No Gastrointestinal: Yes: Normal Bowel Sounds, Soft Renal/: Yes: WNL Musculoskeletal: Yes: Back Pain Extremities: Yes: WNL Edema: No Peripheral Pulses WNL: Yes Integumentary: Yes: WNL Neurological: Yes: Alert, Oriented ...Motor Strength: WNL Psychiatric: Yes: WNL, Alert, Oriented Labs: Laboratory Results - last 24 hr 08/15/17 08/15/17 06:00 06:00 WBC 5.8 RBC 3.30 L Hgb 8.4 L Hct 26.6 L MCV 80.8 MCH 25.6 L MCHC 31.7 L RDW 17.4 H Plt Count 367 MPV 7.7 Sodium 135 L Potassium 4.5 Chloride 101 Carbon Dioxide 26 Anion Gap 8 BUN 18 Creatinine 0.6 Random Glucose 79 Calcium 8.7 Magnesium 2.1 Problem List - Problems (1) Compression fracture of lumbar vertebra Code(s): S32.000A - WEDGE COMPRESSION FRACTURE OF UNSP LUMBAR VERTEBRA, INIT Qualifiers: Encounter type: initial encounter Fracture type: closed (2) Anxiety Code(s): F41.9 - ANXIETY DISORDER, UNSPECIFIED (3) GERD (gastroesophageal reflux disease) Code(s): K21.9 - GASTRO-ESOPHAGEAL REFLUX DISEASE WITHOUT ESOPHAGITIS (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 (5) History of Coumadin therapy Code(s): 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 (6) Hypertension Code(s): I10 - ESSENTIAL (PRIMARY) HYPERTENSION (7) MALT lymphoma Code(s): C88.4 - EXTRNOD MRGNL ZN B-CELL LYMPH OF MUCOS[place]-ASSOC LYMPHOID TISS (8) Myelodysplastic syndrome Code(s): D46.9 - MYELODYSPLASTIC SYNDROME, UNSPECIFIED (9) Myeloproliferative disease Code(s): D47.1 - CHRONIC MYELOPROLIFERATIVE DISEASE (10) Depression Code(s): F32.9 - MAJOR DEPRESSIVE DISORDER, SINGLE EPISODE, UNSPECIFIED Qualifiers: Depression Type: other depression Qualified Code(s): F32.89 - Other specified depressive episodes; F32.89 - Other specified depressive episodes; F32.89 - Other specified depressive episodes (11) Lymphoma Code(s): C85.90 - NON-HODGKIN LYMPHOMA, UNSPECIFIED, UNSPECIFIED SITE (12) A-fib Code(s): I48.91 - UNSPECIFIED ATRIAL FIBRILLATION Qualifiers: Atrial fibrillation type: paroxysmal Qualified Code(s): I48.0 - Paroxysmal atrial fibrillation; I48.0 - Paroxysmal atrial fibrillation; I48.0 - Paroxysmal atrial fibrillation; I48.0 - Paroxysmal atrial fibrillation (13) History of Tucker thyroiditis Code(s): Z86.39 - PERSONAL HISTORY OF ENDO, NUTRITIONAL AND METABOLIC DISEASE (14) Mitral valve prolapse syndrome Code(s): I34.1 - NONRHEUMATIC MITRAL (VALVE) PROLAPSE (15) Paroxysmal a-fib Code(s): I48.0 - PAROXYSMAL ATRIAL FIBRILLATION (16) Portal vein thrombosis Code(s): I81 - PORTAL VEIN THROMBOSIS (17) Vertigo Code(s): R42 - DIZZINESS AND GIDDINESS Assessment/Plan Medical management of LBP Arrangements are being made for the patient's radiographic images to be reviewed by Neuro-interventional radiology at [facility] Pain management O2 as needed Dr Zuleta Problem List - Problems (1) Compression fracture of lumbar vertebra Code(s): S32.000A - WEDGE COMPRESSION FRACTURE OF UNSP LUMBAR VERTEBRA, INIT Qualifiers: Encounter type: initial encounter Fracture type: closed (2) Anxiety Code(s): F41.9 - ANXIETY DISORDER, UNSPECIFIED (3) GERD (gastroesophageal reflux disease) Code(s): K21.9 - GASTRO-ESOPHAGEAL REFLUX DISEASE WITHOUT ESOPHAGITIS (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 (5) History of Coumadin therapy Code(s): 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 (6) Hypertension Code(s): I10 - ESSENTIAL (PRIMARY) HYPERTENSION (7) MALT lymphoma Code(s): C88.4 - EXTRNOD MRGNL ZN B-CELL LYMPH OF MUCOS[place]-ASSOC LYMPHOID TISS (8) Myelodysplastic syndrome Code(s): D46.9 - MYELODYSPLASTIC SYNDROME, UNSPECIFIED (9) Myeloproliferative disease Code(s): D47.1 - CHRONIC MYELOPROLIFERATIVE DISEASE (10) Depression Code(s): F32.9 - MAJOR DEPRESSIVE DISORDER, SINGLE EPISODE, UNSPECIFIED Qualifiers: Depression Type: other depression Qualified Code(s): F32.89 - Other specified depressive episodes; F32.89 - Other specified depressive episodes; F32.89 - Other specified depressive episodes (11) Lymphoma Code(s): C85.90 - NON-HODGKIN LYMPHOMA, UNSPECIFIED, UNSPECIFIED SITE (12) A-fib Code(s): I48.91 - UNSPECIFIED ATRIAL FIBRILLATION Qualifiers: Atrial fibrillation type: paroxysmal Qualified Code(s): I48.0 - Paroxysmal atrial fibrillation; I48.0 - Paroxysmal atrial fibrillation; I48.0 - Paroxysmal atrial fibrillation; I48.0 - Paroxysmal atrial fibrillation (13) History of Tucker thyroiditis Code(s): Z86.39 - PERSONAL HISTORY OF ENDO, NUTRITIONAL AND METABOLIC DISEASE (14) Mitral valve prolapse syndrome Code(s): I34.1 - NONRHEUMATIC MITRAL (VALVE) PROLAPSE (15) Paroxysmal a-fib Code(s): I48.0 - PAROXYSMAL ATRIAL FIBRILLATION (16) Portal vein thrombosis Code(s): I81 - PORTAL VEIN THROMBOSIS (17) Vertigo Code(s): R42 - DIZZINESS AND GIDDINESS
--- NOTE | 2017-08-15 10:08 | CONSULT ---
Consult Consult Specialty:: pain medicine Referred by:: dr kline Reason for Consultation:: back pain - History of Present Illness Chief Complaint: back pain History of Present Illness: 86 yr old woman with a history of recent fall. CT scan shows acute burst fracture at T12. Patient has pain in lower thoracic region with standing, flexion and extension. Pain score 9/10 with movement. She denies weakness or numbness in her legs. - Past Medical History Cardio/Vascular: Yes: AFIB, HTN, Other (Mitral Valve Prolapse) Gastrointestinal: Yes: GERD Psych: Yes: Anxiety ENT: Yes: Allergic Rhinitis, Sinusitis Endocrine: Yes: Other (Hashimotos thyroiditis) - Past Surgical History Past Surgical History: Yes: Appendectomy, Cataract Removal (bilateral), Oopherectomy (bilateral), Tonsillectomy - Alcohol/Substance Use Hx Alcohol Use: No - Smoking History Smoking history: Former smoker Have you smoked in the past 12 months: No Aproximately how many cigarettes per day: 2 If you are a former smoker, when did you quit?: 60 years ago - Social History Usual Living Arrangement: Alone (, in [place]) ADL: Independent 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 History of Recent Travel: No Home Medications - Allergies Allergies/Adverse Reactions: Allergies Allergy/AdvReac Type Severity Reaction Status Date / Time propoxyphene napsylate Allergy Severe Swelling Verified 08/11/17 08:32 [From Darvocet-N 100] aspirin Allergy Difficulty Verified 08/11/17 08:32 Breathing hydromorphone HCl Allergy Verified 08/11/17 08:32 [From Dilaudid] - Home Medications Home Medications: Ambulatory Orders Amlodipine Besylate [Norvasc -] 10 mg PO DAILY #0 tablet 05/13/13 Clonazepam [Klonopin] 0.25 mg PO TID 04/21/14 Ranitidine [Zantac -] 150 mg PO DAILY 06/10/15 Cholecalciferol (Vitamin D3) [Vitamin D3] 2,000 unit PO DAILY 03/22/16 Epoetin Chris [Procrit] 0 unit IJ ASDIR 09/11/16 Acetaminophen [Tylenol .Regular Strength -] 650 mg PO Q4H PRN #0 tablet Hydroxyurea [Hydrea 500Mg Capsule -] 500 mg PO DAILY #30 cap 06/09/17 Furosemide [Lasix -] 40 mg PO BID@0600,1400 tablet 06/10/17 Enoxaparin [Lovenox -] 80 mg SQ BID 08/11/17 Lactobacillus Acidophilus [Probiotic] 1 each PO DAILY 08/11/17 Lidocaine 5% Patch 1 patch TP DAILY 08/11/17 Propylene Glycol/Peg 400 [Systane Ultra 0.4-0.3% Eye Drp] 1 drop OP DAILY Sotalol HCl [Betapace -] 120 mg PO BID 08/11/17 Family Disease History - Family Disease History Family Disease History: Other: Father (CVA) Physical Exam Vital Signs: Vital Signs Temperature 98 F 08/15/17 06:00 Pulse Rate 53 L 08/15/17 06:00 Respiratory Rate 20 08/15/17 06:00 Blood Pressure 150/60 08/15/17 06:00 O2 Sat by Pulse Oximetry (%) 94 L 08/14/17 20:35 Musculoskeletal: Yes: Other (severe back pain with flexion and extension) Labs: CBC, BMP 08/15/17 06:00 08/15/17 06:00 Assessment/Plan T12 compression fx with significant retropulsion 1. I do not feel she is a candidate for kyphoplasty due to retropulsion 2. Agree with Dr Osuna- consider T12 facet blocks- will be done later today 3. TLSO brace 4. Rehab eval 5. Lidoderm patches to T12 region 6. TYlenol prn pain 7. Lovenox on hold- OK'd by Dr Kline
[2017-08-15] MEDS: amLODIPine BESYLATE 10 MG TABLET (FP) PO SCH (10:49)
[2017-08-15] MEDS: SOTALOL HCL 80 MG TABLET (FP) PO SCH ×2 (10:49→21:38)
[2017-08-15] MEDS: CHOLECALCIFEROL (VITAMIN D3) 1,000 UNIT TABLET (FP) PO SCH (10:49)
[2017-08-15] MEDS: LACTOBACILLUS ACIDOPHILUS 1 EACH TAB (FP) PO SCH (10:49)
[2017-08-15] MEDS: RANITIDINE HCL 150 MG TABLET (FP) PO SCH (10:49)
[2017-08-15] MEDS: HYDROXYUREA 500 MG CAPSULE PO SCH (10:49)
[2017-08-15] MEDS: POLYETHYLENE GLYCOL 3350 119 GM BTL PO SCH (10:51)
[2017-08-15] MEDS: ACETAMINOPHEN 325 MG TABLET (FP) PO PRN ×2 (10:53→21:41)
--- NOTE | 2017-08-15 11:49 | PN ---
Physical Exam: SUBJECTIVE: Patient seen and examined at bedside. Still complain of back pain 8 /10 on morphine and tylenol. Had 2 BM on miralax and senna , denies fever, chills N/V/D. Denies Numbness, weakness, tingling in all ext. OBJECTIVE: Vital Signs Period Temp Pulse Resp BP Sys/Conde Pulse Ox Last 24 Hr 98 F-98.2 F 53-70 18-20 142-152/57-62 94 GENERAL: The patient is awake, alert, and fully oriented, in mild distress. HEAD: Normal with no signs of trauma. EYES: sclera anicteric, conjunctiva pallor . No ptosis. ENT: moist mucous membranes. LUNGS: Breath sounds equal, clear to auscultation bilaterally, no wheezes, no crackles, no accessory muscle use. HEART: Regular rate and rhythm, S1, S2 without murmur, rub or gallop. ABDOMEN: Soft, nontender, distended, normoactive bowel sounds, no guarding, no rebound, logan in place. EXTREMITIES: 2+ pulses, warm, well-perfused, no edema. NEUROLOGICAL: Good mentation, strength 5/5 in all ext, sensation intact, hyporeflexia in lower ext . PSYCH: Normal mood, normal affect. SKIN: Warm, dry, no rashes or lesions noted Laboratory Results - last 24 hr 08/15/17 08/15/17 06:00 06:00 WBC 5.8 RBC 3.30 L Hgb 8.4 L Hct 26.6 L MCV 80.8 MCH 25.6 L MCHC 31.7 L RDW 17.4 H Plt Count 367 MPV 7.7 Sodium 135 L Potassium 4.5 Chloride 101 Carbon Dioxide 26 Anion Gap 8 BUN 18 Creatinine 0.6 Random Glucose 79 Calcium 8.7 Magnesium 2.1 Active Medications Generic Name Dose Route Start Last Admin Trade Name Freq PRN Reason Stop Dose Admin Acetaminophen 650 mg 08/11/17 19:05 08/15/17 10:53 Tylenol - PO 650 mg Q4H PRN Administration FEVER OR PAIN Amlodipine Besylate 10 mg 08/12/17 10:00 08/15/17 10:49 Norvasc - PO 10 mg DAILY MARGARITA Administration Cholecalciferol 2,000 unit 08/12/17 10:00 08/15/17 10:49 Vitamin D3 - PO 2,000 unit DAILY MARGARITA Administration Clonazepam 0.25 mg 08/11/17 22:00 08/15/17 05:55 Klonopin - PO 0.25 mg TID MARGARITA Administration Docusate Sodium 100 mg 08/13/17 10:12 08/14/17 10:52 Colace - PO 100 mg BID PRN Administration CONSTIPATION Fentanyl 1 patch 08/14/17 12:00 08/14/17 12:46 Duragesic 12mcg Patch - TD 1 patch Q3D MARGARITA Administration Hydroxyurea 500 mg 08/12/17 10:00 08/15/17 10:49 Hydrea - PO 500 mg DAILY MARGARITA Administration Lactobacillus Acidophilus 1 tab 08/12/17 10:00 08/15/17 10:49 Bacid - PO 1 tab DAILY MARGARITA Administration Miscellaneous 1 each 08/14/17 11:56 Duragesic Patch Waste TD PRN PRN PAIN Morphine Sulfate 2 mg 08/11/17 23:45 08/13/17 15:21 Morphine Injection - IVPUSH 2 mg Q4H PRN Administration PAIN Polyethylene Glycol 17 gm 08/12/17 11:30 08/15/17 10:51 Miralax (For Daily Use) - PO Not Given DAILY MARGARITA Ranitidine HCl 150 mg 08/12/17 10:00 08/15/17 10:49 Zantac - PO 150 mg DAILY MARGARITA Administration Senna 2 tab 08/14/17 08:06 08/14/17 10:53 Senna - PO 2 tab HS PRN Administration CONSTIPATION Sotalol HCl 120 mg 08/11/17 22:00 08/15/17 10:49 Betapace - PO 120 mg BID MARGARITA Administration CBC, BMP 08/15/17 06:00 08/15/17 06:00 CT LS spine : minimal T12 sup endplate depression; diffuse osteopenia; moderate L3-4 and L4-[address] T/LS spine : 65-70% reduction of anterior T12 vertebral height; posterior inferior T12 endplate retropulsion; 20-25% hyphosis T11-L1; 35% anterior central canal impingement inf T12 related to burst fx; minimal kyphosis ; modereate L3-4 and L4-5 central and lateral recess stenosis T12 osteoporotic burst fx with minimal if any focal deficit; burst fx generally successfully heal and remodel with time ASSESSMENT/PLAN: 86yo F hx HTN, lymphoma, al's, GERD, thrombocytopenia, portal vein thrombosis presented to the ED with 5 days of worsening Lower back pain. Pt had a T12 compression fracture 4 months ago, was in rehab for 4 months. Today presented with sever back pain was found to have urinary retention and compression fracture and was admitted for further evaluation. # cord compression at T12 due to burst compression fracture * CT scan reviewed shows 50 % effacement of spinal canal at T12 * MRI lumbar spine , pt was not able to sit settled in the MRI X3 , * pain killer with Morphine 2 mg IVPUSH Q 4hr, Tylenol 650 PO Q6 hr * advance diet to low sodium diet * Neurosurgery consultation , , conservative treatment no surgery for now. * Hematology, and cardiology consultation to optimize for surgery and risk stratification * fall precautions * Hematology consider high risk for surgery due to bleeding/clotting * Pulmonary no contraindication but high risk for surgery * Plan to proceed with conservative treatment , pain management , PT, epidural steroid and kyphoplasty consider she is at high risk for surgery. * Blood Cx no growth, Urine Cx no growth. Urinary retention 2/2 cord compression at T12 * She feels the urge but not able to empty her bladder * Bladder scan >342 cc at admission * maintain Logan # Constipation 2/2 meds vs immobile * had 2 BM last 24 hour * start Miralax 17 po daily and Colace 100 BID * Start Senna 100 BID, Dulocolax suppository, * Colace 2 tab HS * # Hyponatremia, likley 2/2 low oral intake , resolved * Repeat CMP in AM * advance her diet to low sodium diet due to HTN # HTN * normotensive * Hold lasix * continue Amlodipine 10 mg PO daily, * # Lymphoma , Malt * Hematology on the board * can follow as out patient * continue home meds #Paroxysmal afib * c/w sotalol 120 po daily ; * continue Lovenox 80 mg daily * consider to hold if surgery considered # 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 * S/p transfuse 1 unit PRBC. goal Hgb >8. H/H 8.3/25.9 today * cont hydroxyurea. * procrit as outpatient # Portal vein/SMV thrombosis * on full dose lovenox 80 daily #Anxiety * c/w klonopin 0.25 mg po bid prn for anxiety # GERD, * Continue Zantac # FEN * F :DC IVF * E: Monitor * N: advance to low sodium diet # Proph * DVT: SCDs, lovenox 80 , hold today due to epidural injection * GI : no need for now * PT eval # dispo * Admit to med -surg * hem and cardio on board for risk stratification , high risk for surgery, conservative management for now * pending epidural steroid injection * will trabsfer to [facility] per request Visit type - Emergency Visit Emergency Visit: Yes ED Registration Date: 08/11/17 Care time: The patient presented to the Emergency Department on the above date and was hospitalized for further evaluation of their emergent condition. - New Patient This patient is new to me today: No - Critical Care Critical Care patient: No - Discharge Referral Referred to [facility] Med P.C.: No
--- NOTE | 2017-08-15 12:20 | PN ---
Teaching Attending Note Name of Resident: Milton Vickers ATTENDING PHYSICIAN STATEMENT I saw and evaluated the patient. I reviewed the resident's note and discussed the case with the resident. I agree with the resident's findings and plan as documented. SUBJECTIVE: Patient is refusing vertebroplasty and prefers facet injection. OBJECTIVE: Vital Signs Period Temp Pulse Resp BP Sys/Conde Pulse Ox Last 24 Hr 98 F-98.2 F 53-70 18-20 142-152/57-62 94 HEART: S1S2, RRR LUNGS: Clear ABDOMEN: Soft, non-tender, non-distended, normal BS EXTREMITIES: No edema Current Medications Generic Name Dose Route Start Last Admin Trade Name Freq PRN Reason Stop Dose Admin Acetaminophen 650 mg 08/11/17 19:05 08/15/17 10:53 Tylenol - PO 650 mg Q4H PRN Administration FEVER OR PAIN Amlodipine Besylate 10 mg 08/12/17 10:00 08/15/17 10:49 Norvasc - PO 10 mg DAILY MARGARITA Administration Cholecalciferol 2,000 unit 08/12/17 10:00 08/15/17 10:49 Vitamin D3 - PO 2,000 unit DAILY MARGARITA Administration Clonazepam 0.25 mg 08/11/17 22:00 08/15/17 05:55 Klonopin - PO 0.25 mg TID MARGARITA Administration Docusate Sodium 100 mg 08/13/17 10:12 08/14/17 10:52 Colace - PO 100 mg BID PRN Administration CONSTIPATION Fentanyl 1 patch 08/14/17 12:00 08/14/17 12:46 Duragesic 12mcg Patch - TD 1 patch Q3D MARGARITA Administration Hydroxyurea 500 mg 08/12/17 10:00 08/15/17 10:49 Hydrea - PO 500 mg DAILY MARGARITA Administration Lactobacillus Acidophilus 1 tab 08/12/17 10:00 08/15/17 10:49 Bacid - PO 1 tab DAILY MARGARITA Administration Miscellaneous 1 each 08/14/17 11:56 Duragesic Patch Waste TD PRN PRN PAIN Morphine Sulfate 2 mg 08/11/17 23:45 08/13/17 15:21 Morphine Injection - IVPUSH 2 mg Q4H PRN Administration PAIN Polyethylene Glycol 17 gm 08/12/17 11:30 08/15/17 10:51 Miralax (For Daily Use) - PO Not Given DAILY MARGARITA Ranitidine HCl 150 mg 08/12/17 10:00 08/15/17 10:49 Zantac - PO 150 mg DAILY MARGARITA Administration Senna 2 tab 08/14/17 08:06 08/14/17 10:53 Senna - PO 2 tab HS PRN Administration CONSTIPATION Sotalol HCl 120 mg 08/11/17 22:00 08/15/17 10:49 Betapace - PO 120 mg BID MARGARITA Administration ASSESSMENT AND PLAN: This is an 86 year old woman with a history of HTN, MALT lymphoma, PAF, Tucker's thyroiditis, essential thrombocytosis with myelofibrosis, recent portal vein/SMV thrombosis, recent T12 compression fracture, GERD who presented to the ER with back pain. 1. Back pain secondary to T12 compression fracture with conus medullaris compression - Since patient is a poor surgical candidate, at this time will treat conservatively with TLSO brace, physical therapy - Refusing vertebroplasty - Pain management consult appreciated - plan for T12 facet blocks today 2. HTN - Continue Norvasc - Lasix held secondary to dehydration 3. PAF - Remains in sinus rhythm - Continue Sotalol 4. Essential thrombocytosis with myelofibrosis - Transfused 1 unit PRBCs - Maintain hemoglobin > 8.0 - Continue Hydrea, Procrit 5. Portal vein/SMV thrombosis - Failed Coumadin treatment - Continue Lovenox - held for injections 6. MALT lymphoma 7. History of Tucker's thyroiditis 8. GERD - Continue Zantac
--- NOTE | 2017-08-15 13:06 | PN ---
Progress Note (short form) - Note Progress Note: Patient seen and examined still with back pain Last Vital Signs Temp Pulse Resp BP Pulse Ox 98 F 53 L 20 150/60 94 L 08/15/17 06:00 08/15/17 06:00 08/15/17 06:00 08/15/17 06:00 08/14/17 20:35 Cor: RSR, No murmurs, No gallops Lungs: Clear to P&A Abd: Soft, Normal bowel sounds, No organomegaly Ext:No significant edema Skin: No rashes, Integument intact Abnormal Lab Results 08/15/17 08/15/17 06:00 06:00 RBC 3.30 L Hgb 8.4 L Hct 26.6 L MCH 25.6 L MCHC 31.7 L RDW 17.4 H Sodium 135 L Active Medications Generic Name Dose Route Start Last Admin Trade Name Freq PRN Reason Stop Dose Admin Acetaminophen 650 mg 08/11/17 19:05 08/15/17 10:53 Tylenol - PO 650 mg Q4H PRN Administration FEVER OR PAIN Amlodipine Besylate 10 mg 08/12/17 10:00 08/15/17 10:49 Norvasc - PO 10 mg DAILY MARGARITA Administration Cholecalciferol 2,000 unit 08/12/17 10:00 08/15/17 10:49 Vitamin D3 - PO 2,000 unit DAILY MARGARITA Administration Clonazepam 0.25 mg 08/11/17 22:00 08/15/17 05:55 Klonopin - PO 0.25 mg TID MARGARITA Administration Docusate Sodium 100 mg 08/13/17 10:12 08/14/17 10:52 Colace - PO 100 mg BID PRN Administration CONSTIPATION Fentanyl 1 patch 08/14/17 12:00 08/14/17 12:46 Duragesic 12mcg Patch - TD 1 patch Q3D MARGARITA Administration Hydroxyurea 500 mg 08/12/17 10:00 08/15/17 10:49 Hydrea - PO 500 mg DAILY MARGARITA Administration Lactobacillus Acidophilus 1 tab 08/12/17 10:00 08/15/17 10:49 Bacid - PO 1 tab DAILY MARGARITA Administration Miscellaneous 1 each 08/14/17 11:56 Duragesic Patch Waste TD PRN PRN PAIN Morphine Sulfate 2 mg 08/11/17 23:45 08/13/17 15:21 Morphine Injection - IVPUSH 2 mg Q4H PRN Administration PAIN Polyethylene Glycol 17 gm 08/12/17 11:30 08/15/17 10:51 Miralax (For Daily Use) - PO Not Given DAILY MARGARITA Ranitidine HCl 150 mg 08/12/17 10:00 08/15/17 10:49 Zantac - PO 150 mg DAILY MARGARITA Administration Senna 2 tab 08/14/17 08:06 08/14/17 10:53 Senna - PO 2 tab HS PRN Administration CONSTIPATION Sotalol HCl 120 mg 08/11/17 22:00 08/15/17 10:49 Betapace - PO 120 mg BID MARGARITA Administration A/P 86 y/o patient with MPD, MALT lymphoma, iron overload, abnormal liver MRI, comes in with worsening compression fracture. Now a burst fracture Discussed with Dr. Frey--to consider epidural steroid today Will need a brace/physical therapy/rehab will discuss with jean-claude
[2017-08-15] MEDS ORDERED: TRIAMCINOLONE ACET 40MG/1ML VIAL ONE (15:20)
[2017-08-15] MEDS ORDERED: BUPIVACAINE HCL/PF 0.25% (2.5MG/ML) 10 ML VIAL ONE ×2 (15:20→15:45)
[2017-08-15] MEDS ORDERED: PROPOFOL 20 ML ONE (15:47)
[2017-08-15] MEDS ORDERED: TRIAMCINOLONE ACET 40MG/1ML VIAL IM ONE (15:58)
[2017-08-15] MEDS ORDERED: BUPIVACAINE HCL/PF 0.25% (2.5MG/ML) 10 ML VIAL IJ ONE (15:58)
--- NOTE | 2017-08-15 16:03 | PN ---
Progress Note (short form) - Note Progress Note: status post t12 facet blocks no complication restart lovenox in 24hrs (08/16 after 4pm)
[2017-08-15] MEDS: PHYTONADIONE 10 MG/1 ML AMP SQ SCH (16:45)
[2017-08-16] MEDS: clonazePAM 0.5 MG TABLET PO SCH ×3 (06:07→22:25)
[2017-08-16 07:42] LABS: MCH 25.7 pg (25.7-33.7); MCHC 32.1 g/dl (32.0-36.0); MEAN CELL VOLUME 79.9 fl (80-96); MEAN PLT VOLUME 8.4 fl (7.5-11.1); PLATELET COUNT 368 K/MM3 (134-434); RDW 17.5 % (11.6-15.6); WHITE BLOOD COUNT 5.7 K/mm3 (4.0-10.0)
[2017-08-16 07:58] LABS: INR 1.09 (0.82-1.09); PROTHROMBIN TIME (PATIENT) 12.3 SEC (9.98-11.88)
[2017-08-16 08:01] LABS: ACTIVATED PTT 33.6 SECONDS (26.9-34.4)
[2017-08-16 08:15] LABS: ANION GAP 9 (8-16); CALCIUM 8.8 mg/dL (8.5-10.1); CO2 25 mmol/L (21-32); CREATININE 0.7 mg/dL (0.55-1.02); GLUCOSE,RANDOM 110 mg/dL (74-106)
[2017-08-16] MEDS: ACETAMINOPHEN 325 MG TABLET (FP) PO PRN (08:30)
[2017-08-16] MEDS: LACTOBACILLUS ACIDOPHILUS 1 EACH TAB (FP) PO SCH (09:15)
[2017-08-16] MEDS: HYDROXYUREA 500 MG CAPSULE PO SCH (09:15)
[2017-08-16] MEDS: SOTALOL HCL 80 MG TABLET (FP) PO SCH ×2 (09:15→22:16)
[2017-08-16] MEDS: CHOLECALCIFEROL (VITAMIN D3) 1,000 UNIT TABLET (FP) PO SCH (09:16)
[2017-08-16] MEDS: amLODIPine BESYLATE 10 MG TABLET (FP) PO SCH (09:16)
[2017-08-16] MEDS: PHYTONADIONE 10 MG/1 ML AMP SQ SCH (09:16)
[2017-08-16] MEDS: RANITIDINE HCL 150 MG TABLET (FP) PO SCH (09:16)
[2017-08-16] MEDS: POLYETHYLENE GLYCOL 3350 119 GM BTL PO SCH (09:17)
--- NOTE | 2017-08-16 09:18 | EKG ---
Test Reason : Blood Pressure : / mmHG Vent. Rate : 051 BPM Atrial Rate : 051 BPM P-R Int : 208 ms QRS Dur : 088 ms QT Int : 498 ms P-R-T Axes : 021 -42 -05 degrees QTc Int : 458 ms SINUS BRADYCARDIA WITH OCCASIONAL PREMATURE VENTRICULAR COMPLEXES AND PREMATURE ATRIAL COMPLEXES LEFT AXIS DEVIATION NONSPECIFIC T WAVE ABNORMALITY ABNORMAL ECG WHEN COMPARED WITH ECG OF 06-JUN-2017 08:23, PREMATURE ATRIAL COMPLEXES ARE NOW PRESENT Confirmed by МАРИЯ DAIGLE MD ([id number]) on 08/16/2017 9:18:28 AM Referred By: Confirmed By:МАРИЯ DAIGLE MD
--- NOTE | 2017-08-16 11:10 | PN ---
Progress Note (short form) - Note Progress Note: PULMONARY NO OVERALL CHANGE IN EXAM OR PAIN STATUS S/P FACET BLOCK PERFORMED YESTERDAY HAVE ORDERED LIDODERM PATCH WILL HAVE PT TODAY Yan ROSS MD
--- NOTE | 2017-08-16 11:49 | PN ---
Teaching Attending Note Name of Resident: Milton Vickers ATTENDING PHYSICIAN STATEMENT I saw and evaluated the patient. I reviewed the resident's note and discussed the case with the resident. I agree with the resident's findings and plan as documented. SUBJECTIVE: T12 facet blocks done yesteraday afternoon. Patient reports she is still having pain - mostly right low back that radiates around to right groin. OBJECTIVE: Vital Signs Period Temp Pulse Resp BP Sys/Conde Pulse Ox Last 24 Hr 97.6 F-98.2 F 51-58 18-20 131-142/40-66 96 HEART: S1S2, RRR LUNGS: Clear ABDOMEN: Soft, non-tender, non-distended, normal BS EXTREMITIES: No edema Current Medications Generic Name Dose Route Start Last Admin Trade Name Freq PRN Reason Stop Dose Admin Acetaminophen 650 mg 08/11/17 19:05 08/16/17 08:30 Tylenol - PO 650 mg Q4H PRN Administration FEVER OR PAIN Amlodipine Besylate 10 mg 08/12/17 10:00 08/16/17 09:16 Norvasc - PO 10 mg DAILY MARGARITA Administration Cholecalciferol 2,000 unit 08/12/17 10:00 08/16/17 09:16 Vitamin D3 - PO 2,000 unit DAILY MARGARITA Administration Clonazepam 0.25 mg 08/11/17 22:00 08/16/17 06:07 Klonopin - PO 0.25 mg TID MARGARITA Administration Docusate Sodium 100 mg 08/13/17 10:12 08/14/17 10:52 Colace - PO 100 mg BID PRN Administration CONSTIPATION Enoxaparin Sodium 80 mg 08/16/17 18:00 Lovenox - SQ ONCE MARGARITA Enoxaparin Sodium 80 mg 08/17/17 10:00 Lovenox - SQ DAILY MARGARITA Fentanyl 1 patch 08/14/17 12:00 08/14/17 12:46 Duragesic 12mcg Patch - TD 1 patch Q3D MARGARITA Administration Hydroxyurea 500 mg 08/12/17 10:00 08/16/17 09:15 Hydrea - PO 500 mg DAILY MARGARITA Administration Lactobacillus Acidophilus 1 tab 08/12/17 10:00 08/16/17 09:15 Bacid - PO 1 tab DAILY MARGARITA Administration Lidocaine 1 patch 08/16/17 11:15 Lidoderm Patch - TP DAILY MARGARITA Miscellaneous 1 each 08/14/17 11:56 Duragesic Patch Waste TD PRN PRN PAIN Miscellaneous 1 each 08/16/17 22:00 Lidoderm Patch Removal MC DAILY@2200 [facility] Morphine Sulfate 2 mg 08/11/17 23:45 08/13/17 15:21 Morphine Injection - IVPUSH 2 mg Q4H PRN Administration PAIN Phytonadione 5 mg 08/15/17 14:45 08/16/17 09:16 Aqua Mephyton Injection - SQ 08/17/17 14:44 5 mg DAILY MARGARITA Administration Polyethylene Glycol 17 gm 08/12/17 11:30 08/16/17 09:17 Miralax (For Daily Use) - PO Not Given DAILY MARGARITA Ranitidine HCl 150 mg 08/12/17 10:00 08/16/17 09:16 Zantac - PO 150 mg DAILY MARGARITA Administration Senna 2 tab 08/14/17 08:06 08/14/17 10:53 Senna - PO 2 tab HS PRN Administration CONSTIPATION Sotalol HCl 120 mg 08/11/17 22:00 08/16/17 09:15 Betapace - PO 120 mg BID MARGARITA Administration ASSESSMENT AND PLAN: This is an 86 year old woman with a history of HTN, MALT lymphoma, PAF, Tucker's thyroiditis, essential thrombocytosis with myelofibrosis, recent portal vein/SMV thrombosis, recent T12 compression fracture, GERD who presented to the ER with back pain. 1. Back pain secondary to T12 compression fracture with conus medullaris compression - Since patient is a poor surgical candidate, at this time will treat conservatively with TLSO brace, physical therapy - T12 facet blocks done 08/15 with no significant improvement - Lidoderm patch started - She was refusing vertebroplasty - Dr. Kline contacted IR at [facility] and transfer for evaluation for vertebroplasty will be arranged 2. HTN - Continue Norvasc - Lasix held secondary to dehydration 3. PAF - Remains in sinus rhythm - Continue Sotalol 4. Essential thrombocytosis with myelofibrosis - Transfused 1 unit PRBCs - Hemoglobin stable - Maintain hemoglobin > 8.0 - Continue Hydrea, Procrit 5. Portal vein/SMV thrombosis - Failed Coumadin treatment - Continue Lovenox - held for injections 6. MALT lymphoma 7. History of Tucker's thyroiditis 8. GERD - Continue Zantac
--- NOTE | 2017-08-16 12:30 | PN ---
Physical Exam: SUBJECTIVE: Patient seen and examined at bedside. Still complains of back pain S/P T12 facet block, on morphine and Tylenol. Had 1 BM on Miralax and senna , denies fever, chills N/V/D. Denies Numbness, weakness, tingling in all ext. OBJECTIVE: Vital Signs Period Temp Pulse Resp BP Sys/Conde Pulse Ox Last 24 Hr 97.6 F-98.2 F 51-58 18-20 131-142/40-66 96 GENERAL: The patient is awake, alert, and fully oriented, in mild distress. HEAD: Normal with no signs of trauma. EYES: sclera anicteric, conjunctiva pallor . ENT: moist mucous membranes. LUNGS: Breath sounds equal, clear to auscultation bilaterally, no wheezes, no crackles, no accessory muscle use. HEART: Regular rate and rhythm, S1, S2 without murmur, rub or gallop. ABDOMEN: Soft, nontender, distended, normoactive bowel sounds, no guarding, no rebound, logan in place. EXTREMITIES: 2+ pulses, warm, well-perfused, no edema. NEUROLOGICAL: Good mentation, strength 5/5 in all ext, sensation intact, hyporeflexia in lower ext . PSYCH: Normal mood, normal affect. SKIN: Warm, dry, no rashes or lesions noted Laboratory Results - last 24 hr 08/11/17 08/16/17 08/16/17 19:45 06:00 06:00 WBC 5.7 RBC 3.38 L Hgb 8.7 L Hct 27.0 L MCV 79.9 L MCH 25.7 MCHC 32.1 RDW 17.5 H Plt Count 368 MPV 8.4 PT with INR 12.30 H INR 1.09 PTT (Actin FS) 33.6 Fibrinogen 463.0 Sodium Potassium Chloride Carbon Dioxide Anion Gap BUN Creatinine Random Glucose Calcium Blood Type AB POSITIVE Antibody Screen Negative Crossmatch See Detail 08/16/17 06:00 WBC RBC Hgb Hct MCV MCH MCHC RDW Plt Count MPV PT with INR INR PTT (Actin FS) Fibrinogen Sodium 136 Potassium 5.0 Chloride 102 Carbon Dioxide 25 Anion Gap 9 BUN 27 H D Creatinine 0.7 Random Glucose 110 H D Calcium 8.8 Blood Type Antibody Screen Crossmatch Active Medications Generic Name Dose Route Start Last Admin Trade Name Freq PRN Reason Stop Dose Admin Acetaminophen 650 mg 08/11/17 19:05 08/16/17 08:30 Tylenol - PO 650 mg Q4H PRN Administration FEVER OR PAIN Amlodipine Besylate 10 mg 08/12/17 10:00 08/16/17 09:16 Norvasc - PO 10 mg DAILY MARGARITA Administration Cholecalciferol 2,000 unit 08/12/17 10:00 08/16/17 09:16 Vitamin D3 - PO 2,000 unit DAILY MARGARITA Administration Clonazepam 0.25 mg 08/11/17 22:00 08/16/17 06:07 Klonopin - PO 0.25 mg TID MARGARITA Administration Docusate Sodium 100 mg 08/13/17 10:12 08/14/17 10:52 Colace - PO 100 mg BID PRN Administration CONSTIPATION Enoxaparin Sodium 80 mg 08/16/17 18:00 Lovenox - SQ ONCE MARGARITA Enoxaparin Sodium 80 mg 08/17/17 10:00 Lovenox - SQ DAILY [facility] Fentanyl 1 patch 08/14/17 12:00 08/14/17 12:46 Duragesic 12mcg Patch - TD 1 patch Q3D [facility] Administration Hydroxyurea 500 mg 08/12/17 10:00 08/16/17 09:15 Hydrea - PO 500 mg DAILY [facility] Administration Lactobacillus Acidophilus 1 tab 08/12/17 10:00 08/16/17 09:15 Bacid - PO 1 tab DAILY [facility] Administration Lidocaine 1 patch 08/16/17 11:15 Lidoderm Patch - TP DAILY MARGARITA Miscellaneous 1 each 08/14/17 11:56 Duragesic Patch Waste TD PRN PRN PAIN Miscellaneous 1 each 08/16/17 22:00 Lidoderm Patch Removal DAILY@2200 [facility] Morphine Sulfate 2 mg 08/11/17 23:45 08/13/17 15:21 Morphine Injection - IVPUSH 2 mg Q4H PRN Administration PAIN Phytonadione 5 mg 08/15/17 14:45 08/16/17 09:16 Aqua Mephyton Injection - SQ 08/17/17 14:44 5 mg DAILY MARGARITA Administration Polyethylene Glycol 17 gm 08/12/17 11:30 08/16/17 09:17 Miralax (For Daily Use) - PO Not Given DAILY [facility] Ranitidine HCl 150 mg 08/12/17 10:00 08/16/17 09:16 Zantac - PO 150 mg DAILY MARGARITA Administration Senna 2 tab 08/14/17 08:06 08/14/17 10:53 Senna - PO 2 tab HS PRN Administration CONSTIPATION Sotalol HCl 120 mg 08/11/17 22:00 08/16/17 09:15 Betapace - PO 120 mg BID MARGARITA Administration CBC, BMP 08/16/17 06:00 08/16/17 06:00 Microbiology 08/13/17 15:15 Blood - Peripheral Venous Blood Culture - Preliminary NO GROWTH OBTAINED AFTER 48 HOURS, INCUBATION TO CONTINUE FOR 3 DAYS. 08/13/17 15:15 Blood - Peripheral Venous Blood Culture - Preliminary NO GROWTH OBTAINED AFTER 48 HOURS, INCUBATION TO CONTINUE FOR 3 DAYS. ASSESSMENT/PLAN: 86yo F hx HTN, lymphoma, al's, GERD, thrombocytopenia, portal vein thrombosis presented to the ED with 5 days of worsening Lower back pain. Pt had a T12 compression fracture 4 months ago, was in rehab for 4 months. Today presented with sever back pain was found to have urinary retention and compression fracture and was admitted for further evaluation. # cord compression at T12 due to burst compression fracture * CT scan reviewed shows 50 % effacement of spinal canal at T12 * MRI lumbar spine , pt was not able to sit settled in the MRI X3 , * pain killer with Morphine 2 mg IVPUSH Q 4hr, Tylenol 650 PO Q6 hr * S/p T12 facet block on 08/15 * Neurosurgery consultation , , conservative treatment no surgery for now. * Hematology,Pulmonary, cardiology on board * fall precautions * Plan to proceed with conservative treatment , pain management , PT, epidural steroid and kyphoplasty consider she is at high risk for surgery. * Blood Cx no growth, Urine Cx no growth. * pending transfer to [facility] for possible Kyphoplasty #Urinary retention 2/2 cord compression at T12 * She feels the urge but not able to empty her bladder * Bladder scan >342 cc at admission * maintain Logan # Constipation 2/2 meds vs immobile, resolved * had 1 BM last 24 hour * Continue Miralax 17 po daily and Colace 100 BID * Continue Senna 100 BID, * Colace 2 tab HS * # Hyponatremia, likley 2/2 low oral intake , resolved * Repeat CMP in AM * advance her diet to low sodium diet due to HTN # HTN * normotensive * Hold lasix * continue Amlodipine 10 mg PO daily, * # Lymphoma , Malt * Hematology on the board * can follow as out patient * continue home meds #Paroxysmal afib * c/w sotalol 120 po daily ; * continue Lovenox 80 mg daily * consider to hold if surgery considered # 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 * S/p transfuse 1 unit PRBC. goal Hgb >8. H/H 8.05/30 today * cont hydroxyurea. * continue procrit # Portal vein/SMV thrombosis * on full dose lovenox 80 daily #Anxiety * c/w klonopin 0.25 mg po bid prn for anxiety # GERD, * Continue Zantac # FEN * F :on no fluids * E: Monitor * N: low sodium diet # Proph * DVT: SCDs, lovenox 80 , * GI : no need for now * PT eval # dispo * Admit to med -surg * hem and cardio on board for risk stratification , high risk for surgery, conservative management for now * S/p epidural steroid injection * She will be placed on transfer list to [facility]Oncology floor when bed available. Visit type - Emergency Visit Emergency Visit: Yes ED Registration Date: 08/11/17 Care time: The patient presented to the Emergency Department on the above date and was hospitalized for further evaluation of their emergent condition. - New Patient This patient is new to me today: No - Critical Care Critical Care patient: No
[2017-08-16] MEDS: LIDOCAINE 5% TOPICAL PATCH TP SCH (12:39)
--- NOTE | 2017-08-16 13:39 | PN ---
Progress Note (short form) - Note Progress Note: patient seen and examined. Has pain she says, Chart reviewed. All consult notes noted. O/E: General: appears with some discomfort Head: NCAT HEART: S1S2, RRR LUNGS: Clear ABDOMEN: Soft, mildly distended, logan catheter in place EXTREMITIES: No edema CBC, BMP 08/16/17 06:00 08/16/17 06:00 Current Medications Generic Name Dose Route Start Last Admin Trade Name Freq PRN Reason Stop Dose Admin Acetaminophen 650 mg 08/11/17 19:05 08/16/17 08:30 Tylenol - PO 650 mg Q4H PRN Administration FEVER OR PAIN Amlodipine Besylate 10 mg 08/12/17 10:00 08/16/17 09:16 Norvasc - PO 10 mg DAILY MARGARITA Administration Cholecalciferol 2,000 unit 08/12/17 10:00 08/16/17 09:16 Vitamin D3 - PO 2,000 unit DAILY MARGARITA Administration Clonazepam 0.25 mg 08/11/17 22:00 08/16/17 13:30 Klonopin - PO 0.25 mg TID MARGARITA Administration Docusate Sodium 100 mg 08/13/17 10:12 08/14/17 10:52 Colace - PO 100 mg BID PRN Administration CONSTIPATION Enoxaparin Sodium 80 mg 08/16/17 18:00 Lovenox - SQ ONCE MARGARITA Enoxaparin Sodium 80 mg 08/17/17 10:00 Lovenox - SQ DAILY MARGARITA Fentanyl 1 patch 08/14/17 12:00 08/14/17 12:46 Duragesic 12mcg Patch - TD 1 patch Q3D MARGARITA Administration Hydroxyurea 500 mg 08/12/17 10:00 08/16/17 09:15 Hydrea - PO 500 mg DAILY MARGARITA Administration Lactobacillus Acidophilus 1 tab 08/12/17 10:00 08/16/17 09:15 Bacid - PO 1 tab DAILY MARGARITA Administration Lidocaine 1 patch 08/16/17 11:15 08/16/17 12:39 Lidoderm Patch - TP 1 patch DAILY MARGARITA Administration Miscellaneous 1 each 08/14/17 11:56 Duragesic Patch Waste TD PRN PRN PAIN Miscellaneous 1 each 08/16/17 22:00 Lidoderm Patch Removal MC DAILY@2200 MARGARITA Morphine Sulfate 2 mg 08/11/17 23:45 08/13/17 15:21 Morphine Injection - IVPUSH 2 mg Q4H PRN Administration PAIN Phytonadione 5 mg 08/15/17 14:45 08/16/17 09:16 Aqua Mephyton Injection - SQ 08/17/17 14:44 5 mg DAILY MARGARITA Administration Polyethylene Glycol 17 gm 08/12/17 11:30 08/16/17 09:17 Miralax (For Daily Use) - PO Not Given DAILY MARGARITA Ranitidine HCl 150 mg 08/12/17 10:00 08/16/17 09:16 Zantac - PO 150 mg DAILY MARGARITA Administration Senna 2 tab 08/14/17 08:06 08/14/17 10:53 Senna - PO 2 tab HS PRN Administration CONSTIPATION Sotalol HCl 120 mg 08/11/17 22:00 08/16/17 09:15 Betapace - PO 120 mg BID MARGARITA Administration Last Vital Signs Temp Pulse Resp BP Pulse Ox 98.1 F 56 L 18 145/84 97 08/16/17 09:00 08/16/17 09:00 08/16/17 09:00 08/16/17 09:00 08/16/17 09:00 Assessment/Plan: 86 y/o patient with HTN, MVP, afib, essential thrombocytosis/myelofibrosis, transfusion dependency, ironoverload, abnormal liver MRI ? lesions vs signal abnormality, recent portal/SMV thrombosis, MALT lymphoma s/p RT,s/p recent fall 05/20 with vertebral compression fx and preferred conservative management atthat time Now with Burst fracture. status post t12 facet blocks on 08/15 Will need a brace/physical therapy/rehab spoke to [facility] and agreed to eval the burst fracture. She will be placed on transfer list to [facility]On[facility] floor when bed available. will continue the rest of the care. Spoke to [place] in detail. (daughter).
[2017-08-16] MEDS: ENOXAPARIN NA (PORCINE) 80 MG/0.8 ML DISP.SYRIN SQ SCH (17:39)
--- NOTE | 2017-08-16 19:56 | PN ---
Progress Note (short form) - Note Progress Note: 86 year old female admitted with severe back pain related to vertebral fracture , h/o osteoporosis, hypertension, paroxysmal atril fibrillation, Tucker's disease, thrombocytosis, myelodysplastic syndrome, MALT lymphoma and MVP. Continues to have back pain although appears to be in less discomfort. No chest pain or SOB. Tolerating current therapy and is on lidoderm patch and also fentanyl patch. Active Medications Generic Name Dose Route Start Last Admin Trade Name Freq PRN Reason Stop Dose Admin Acetaminophen 650 mg 08/11/17 19:05 08/16/17 08:30 Tylenol - PO 650 mg Q4H PRN Administration FEVER OR PAIN Amlodipine Besylate 10 mg 08/12/17 10:00 08/16/17 09:16 Norvasc - PO 10 mg DAILY MARGARITA Administration Cholecalciferol 2,000 unit 08/12/17 10:00 08/16/17 09:16 Vitamin D3 - PO 2,000 unit DAILY MARGARITA Administration Clonazepam 0.25 mg 08/11/17 22:00 08/16/17 13:30 Klonopin - PO 0.25 mg TID MARGARITA Administration Docusate Sodium 100 mg 08/13/17 10:12 08/14/17 10:52 Colace - PO 100 mg BID PRN Administration CONSTIPATION Enoxaparin Sodium 80 mg 08/16/17 18:00 08/16/17 17:39 Lovenox - SQ 80 mg ONCE MARGARITA Administration Enoxaparin Sodium 80 mg 08/17/17 10:00 Lovenox - SQ DAILY MARGARITA Fentanyl 1 patch 08/14/17 12:00 08/14/17 12:46 Duragesic 12mcg Patch - TD 1 patch Q3D MARGARITA Administration Hydroxyurea 500 mg 08/12/17 10:00 08/16/17 09:15 Hydrea - PO 500 mg DAILY MARGARITA Administration Lactobacillus Acidophilus 1 tab 08/12/17 10:00 08/16/17 09:15 Bacid - PO 1 tab DAILY MARGARITA Administration Lidocaine 1 patch 08/16/17 11:15 08/16/17 12:39 Lidoderm Patch - TP 1 patch DAILY MARGARITA Administration Miscellaneous 1 each 08/14/17 11:56 Duragesic Patch Waste TD PRN PRN PAIN Miscellaneous 1 each 08/16/17 22:00 Lidoderm Patch Removal DAILY@2200 MARGARITA Morphine Sulfate 2 mg 08/11/17 23:45 08/13/17 15:21 Morphine Injection - IVPUSH 2 mg Q4H PRN Administration PAIN Phytonadione 5 mg 08/15/17 14:45 08/16/17 09:16 Aqua Mephyton Injection - SQ 08/17/17 14:44 5 mg DAILY MARGARITA Administration Polyethylene Glycol 17 gm 08/12/17 11:30 08/16/17 09:17 Miralax (For Daily Use) - PO Not Given DAILY MARGARITA Ranitidine HCl 150 mg 08/12/17 10:00 08/16/17 09:16 Zantac - PO 150 mg DAILY MARGARITA Administration Senna 2 tab 08/14/17 08:06 08/14/17 10:53 Senna - PO 2 tab HS PRN Administration CONSTIPATION Sotalol HCl 120 mg 08/11/17 22:00 08/16/17 09:15 Betapace - PO 120 mg BID MARGARITA Administration 86 year old female in moderate distress, no pallor or cyanosis,no clubbing or jaundice. Vital Signs - 8 hr 08/16/17 08/16/17 14:27 18:32 Temperature 98.7 F 98.0 F Pulse Rate 55 L 52 L Respiratory 18 18 Rate Blood Pressure 134/46 139/58 NECK: Supple, no JVD, carotids 2+, no bruits. HEART: PMI in the 5th ICS, no heaves or thrills. NEC along the LSB, grade apical systolic murmur, no gallops heard. LUNGS: Clear on auscultation ABDOMEN: Soft, nontender,no organomegaly or palpable masses felt EXTREMITIES: No calf tenderness or dependent edema. CBC, BMP 08/16/17 06:00 08/16/17 06:00 IMPRESSION: 1. Hypertension. 2. Paroxysmal atrial fibrillation,currently in sinus rhythm. 3. Vertebral fracture. 4. MVP. 5. MALT Lymphoma. 6. Thrombocytosis. 7. Myelodysplastic syndrome. 8. H/o VPBs currently in remission. 9. H/o depression, in remission. 10. ANEmia. RECOMMENDATION: 1. Continue current medications. 2. Supportive care in progress. 3 Bed side PT in progress.
[2017-08-16] MEDS: LIDOCAINE PATCH REMOVAL MC SCH (22:25)
[2017-08-17] MEDS: clonazePAM 0.5 MG TABLET PO SCH ×3 (06:58→21:10)
[2017-08-17] MEDS: ACETAMINOPHEN 325 MG TABLET (FP) PO PRN ×2 (06:59→21:12)
[2017-08-17 07:25] LABS: MCH 25.8 pg (25.7-33.7); MCHC 31.9 g/dl (32.0-36.0); MEAN PLT VOLUME 8.1 fl (7.5-11.1); PLATELET COUNT 430 K/MM3 (134-434); RDW 17.1 % (11.6-15.6); WHITE BLOOD COUNT 7.8 K/mm3 (4.0-10.0)
[2017-08-17] MEDS: PHYTONADIONE 10 MG/1 ML AMP SQ SCH (10:04)
[2017-08-17] MEDS: LACTOBACILLUS ACIDOPHILUS 1 EACH TAB (FP) PO SCH (10:06)
[2017-08-17] MEDS: HYDROXYUREA 500 MG CAPSULE PO SCH (10:07)
[2017-08-17] MEDS: SOTALOL HCL 80 MG TABLET (FP) PO SCH ×2 (10:07→21:09)
[2017-08-17] MEDS: amLODIPine BESYLATE 10 MG TABLET (FP) PO SCH (10:08)
[2017-08-17] MEDS: ENOXAPARIN NA (PORCINE) 80 MG/0.8 ML DISP.SYRIN SQ SCH (10:08)
[2017-08-17] MEDS: RANITIDINE HCL 150 MG TABLET (FP) PO SCH (10:09)
[2017-08-17] MEDS: LIDOCAINE 5% TOPICAL PATCH TP SCH (10:25)
--- NOTE | 2017-08-17 10:34 | PN ---
Progress Note (short form) - Note Progress Note: Still with LBP. Reports no significant change in pain. No CP or SOB. Intake & Output 08/14/17 08/15/17 08/16/17 08/17/17 23:59 23:59 23:59 23:59 Intake Total 100 480 390 Output Total 1350 6627 740 9375 Balance -1350 -1000 280 -2009 Last Vital Signs Temp Pulse Resp BP Pulse Ox 98.4 F 49 L 20 144/41 96 08/17/17 06:31 08/17/17 06:31 08/17/17 06:31 08/17/17 06:31 08/16/17 21:00 Active Medications Acetaminophen (Tylenol -) 650 mg PO Q4H PRN PRN Reason: FEVER OR PAIN Last Admin: 08/17/17 06:59 Dose: 650 mg Amlodipine Besylate (Norvasc -) 10 mg PO DAILY [facility] Last Admin: 08/17/17 10:08 Dose: 10 mg Cholecalciferol (Vitamin D3 -) 2,000 unit PO DAILY [facility] Last Admin: 08/16/17 09:16 Dose: 2,000 unit Clonazepam (Klonopin -) 0.25 mg PO TID [facility] Last Admin: 08/17/17 06:58 Dose: 0.25 mg Docusate Sodium (Colace -) 100 mg PO BID PRN PRN Reason: CONSTIPATION Last Admin: 08/14/17 10:52 Dose: 100 mg Enoxaparin Sodium (Lovenox -) 80 mg SQ ONCE MARGARITA Last Admin: 08/16/17 17:39 Dose: 80 mg Enoxaparin Sodium (Lovenox -) 80 mg SQ DAILY [facility] Last Admin: 08/17/17 10:08 Dose: 80 mg Fentanyl (Duragesic 12mcg Patch -) 1 patch TD Q3D [facility] Last Admin: 08/14/17 12:46 Dose: 1 patch Hydroxyurea (Hydrea -) 500 mg PO DAILY [facility] Last Admin: 08/17/17 10:07 Dose: 500 mg Lactobacillus Acidophilus (Bacid -) 1 tab PO DAILY [facility] Last Admin: 08/17/17 10:06 Dose: 1 tab Lidocaine (Lidoderm Patch -) 1 patch TP DAILY [facility] Last Admin: 08/17/17 10:25 Dose: 1 patch Miscellaneous (Duragesic Patch Waste) 1 each TD PRN PRN PRN Reason: PAIN Miscellaneous (Lidoderm Patch Removal) 1 each MC DAILY@2200 [facility] Last Admin: 08/16/17 22:25 Dose: 1 each Phytonadione (Aqua Mephyton Injection -) 5 mg SQ DAILY [facility] Stop: 08/17/17 14:44 Last Admin: 08/17/17 10:04 Dose: 5 mg Polyethylene Glycol (Miralax (For Daily Use) -) 17 gm PO DAILY [facility] Last Admin: 08/16/17 09:17 Dose: Not Given Ranitidine HCl (Zantac -) 150 mg PO DAILY [facility] Last Admin: 08/17/17 10:09 Dose: 150 mg Senna (Senna -) 2 tab PO HS PRN PRN Reason: CONSTIPATION Last Admin: 08/14/17 10:53 Dose: 2 tab Sotalol HCl (Betapace -) 120 mg PO BID [facility] Last Admin: 08/17/17 10:07 Dose: 120 mg Constitutional: Yes: uncomfortable due to pain, No Distress Eyes: Yes: Conjunctiva Clear, EOM Intact HENT: Yes: Atraumatic, Normocephalic Neck: Yes: Supple, Trachea Midline Cardiovascular: Yes: Regular Rate and Rhythm Respiratory: Yes: Regular, CTA Bilaterally ...Clubbing: No Gastrointestinal: Yes: Normal Bowel Sounds, Soft Renal/: Yes: WNL Musculoskeletal: Yes: Back Pain Extremities: Yes: WNL Edema: No Peripheral Pulses WNL: Yes Integumentary: Yes: WNL Neurological: Yes: Alert, Oriented ...Motor Strength: WNL Psychiatric: Yes: WNL, Alert, Oriented Labs: Laboratory Results - last 24 hr 08/17/17 06:00 WBC 7.8 D RBC 3.64 Hgb 9.4 L Hct 29.4 L MCV 81.0 MCH 25.8 MCHC 31.9 L RDW 17.1 H Plt Count 430 MPV 8.1 Problem List - Problems (1) Compression fracture of lumbar vertebra Code(s): S32.000A - WEDGE COMPRESSION FRACTURE OF UNSP LUMBAR VERTEBRA, INIT Qualifiers: Encounter type: initial encounter Fracture type: closed (2) Anxiety Code(s): F41.9 - ANXIETY DISORDER, UNSPECIFIED (3) GERD (gastroesophageal reflux disease) Code(s): K21.9 - GASTRO-ESOPHAGEAL REFLUX DISEASE WITHOUT ESOPHAGITIS (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 (5) History of Coumadin therapy Code(s): Z79.01 - RETIREMENT (CURRENT) USE OF 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 (6) Hypertension Code(s): I10 - ESSENTIAL (PRIMARY) HYPERTENSION (7) MALT lymphoma Code(s): C88.4 - EXTRNOD MRGNL ZN B-CELL LYMPH OF MUCOSA-ASSOC LYMPHOID TISS (8) Myelodysplastic syndrome Code(s): D46.9 - MYELODYSPLASTIC SYNDROME, UNSPECIFIED (9) Myeloproliferative disease Code(s): D47.1 - CHRONIC MYELOPROLIFERATIVE DISEASE (10) Depression Code(s): F32.9 - MAJOR DEPRESSIVE DISORDER, SINGLE EPISODE, UNSPECIFIED Qualifiers: Depression Type: other depression Qualified Code(s): F32.89 - Other specified depressive episodes; F32.89 - Other specified depressive episodes; F32.89 - Other specified depressive episodes (11) Lymphoma Code(s): C85.90 - NON-HODGKIN LYMPHOMA, UNSPECIFIED, UNSPECIFIED SITE (12) A-fib Code(s): I48.91 - UNSPECIFIED ATRIAL FIBRILLATION Qualifiers: Atrial fibrillation type: paroxysmal Qualified Code(s): I48.0 - Paroxysmal atrial fibrillation; I48.0 - Paroxysmal atrial fibrillation; I48.0 - Paroxysmal atrial fibrillation; I48.0 - Paroxysmal atrial fibrillation (13) History of Tucker thyroiditis Code(s): Z86.39 - PERSONAL HISTORY OF ENDO, NUTRITIONAL AND METABOLIC DISEASE (14) Mitral valve prolapse syndrome Code(s): I34.1 - NONRHEUMATIC MITRAL (VALVE) PROLAPSE (15) Paroxysmal a-fib Code(s): I48.0 - PAROXYSMAL ATRIAL FIBRILLATION (16) Portal vein thrombosis Code(s): I81 - PORTAL VEIN THROMBOSIS (17) Vertigo Code(s): R42 - DIZZINESS AND GIDDINESS Assessment/Plan Medical management of LBP For possible transfer to tertiary care center for further management Pain management O2 as needed Dr Zuleta Problem List - Problems (1) Compression fracture of lumbar vertebra Code(s): S32.000A - WEDGE COMPRESSION FRACTURE OF UNSP LUMBAR VERTEBRA, INIT Qualifiers: Encounter type: initial encounter Fracture type: closed (2) Anxiety Code(s): F41.9 - ANXIETY DISORDER, UNSPECIFIED (3) GERD (gastroesophageal reflux disease) Code(s): K21.9 - GASTRO-ESOPHAGEAL REFLUX DISEASE WITHOUT ESOPHAGITIS (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 (5) History of Coumadin therapy Code(s): Z79.01 - RETIREMENT (CURRENT) USE OF 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 (6) Hypertension Code(s): I10 - ESSENTIAL (PRIMARY) HYPERTENSION (7) MALT lymphoma Code(s): C88.4 - EXTRNOD MRGNL ZN B-CELL LYMPH OF MUCOSA-ASSOC LYMPHOID TISS (8) Myelodysplastic syndrome Code(s): D46.9 - MYELODYSPLASTIC SYNDROME, UNSPECIFIED (9) Myeloproliferative disease Code(s): D47.1 - CHRONIC MYELOPROLIFERATIVE DISEASE (10) Depression Code(s): F32.9 - MAJOR DEPRESSIVE DISORDER, SINGLE EPISODE, UNSPECIFIED Qualifiers: Depression Type: other depression Qualified Code(s): F32.89 - Other specified depressive episodes; F32.89 - Other specified depressive episodes; F32.89 - Other specified depressive episodes (11) Lymphoma Code(s): C85.90 - NON-HODGKIN LYMPHOMA, UNSPECIFIED, UNSPECIFIED SITE (12) A-fib Code(s): I48.91 - UNSPECIFIED ATRIAL FIBRILLATION Qualifiers: Atrial fibrillation type: paroxysmal Qualified Code(s): I48.0 - Paroxysmal atrial fibrillation; I48.0 - Paroxysmal atrial fibrillation; I48.0 - Paroxysmal atrial fibrillation; I48.0 - Paroxysmal atrial fibrillation (13) History of Tucker thyroiditis Code(s): Z86.39 - PERSONAL HISTORY OF ENDO, NUTRITIONAL AND METABOLIC DISEASE (14) Mitral valve prolapse syndrome Code(s): I34.1 - NONRHEUMATIC MITRAL (VALVE) PROLAPSE (15) Paroxysmal a-fib Code(s): I48.0 - PAROXYSMAL ATRIAL FIBRILLATION (16) Portal vein thrombosis Code(s): I81 - PORTAL VEIN THROMBOSIS (17) Vertigo Code(s): R42 - DIZZINESS AND GIDDINESS
[2017-08-17] MEDS: POLYETHYLENE GLYCOL 3350 119 GM BTL PO SCH (11:00)
--- NOTE | 2017-08-17 12:17 | PN ---
Physical Exam: SUBJECTIVE: Patient seen and examined. She refused transfer to [facility] this morning because she wanted to speak with her daughter first. OBJECTIVE: Vital Signs Period Temp Pulse Resp BP Sys/Conde Pulse Ox Last 24 Hr 98.0 F-98.7 F 49-55 18-20 134-144/41-58 96 GENERAL: The patient is awake, alert, and fully oriented, in no acute distress. LUNGS: Breath sounds equal, clear to auscultation bilaterally, no wheezes, no crackles, no accessory muscle use. HEART: Regular rate and rhythm, S1, S2 without murmur, rub or gallop. ABDOMEN: Soft, non-tender, non-distended, normal bowel sounds, no guarding, no rebound, no hepatosplenomegaly, no masses. EXTREMITIES: 2+ pulses, warm, well-perfused, no edema. Laboratory Results - last 24 hr 08/17/17 06:00 WBC 7.8 D RBC 3.64 Hgb 9.4 L Hct 29.4 L MCV 81.0 MCH 25.8 MCHC 31.9 L RDW 17.1 H Plt Count 430 MPV 8.1 Active Medications Generic Name Dose Route Start Last Admin Trade Name Freq PRN Reason Stop Dose Admin Acetaminophen 650 mg 08/11/17 19:05 08/17/17 06:59 Tylenol - PO 650 mg Q4H PRN Administration FEVER OR PAIN Amlodipine Besylate 10 mg 08/12/17 10:00 08/17/17 10:08 Norvasc - PO 10 mg DAILY MARGARITA Administration Cholecalciferol 2,000 unit 08/12/17 10:00 08/16/17 09:16 Vitamin D3 - PO 2,000 unit DAILY MARGARITA Administration Clonazepam 0.25 mg 08/11/17 22:00 08/17/17 06:58 Klonopin - PO 0.25 mg TID MARGARITA Administration Docusate Sodium 100 mg 08/13/17 10:12 08/14/17 10:52 Colace - PO 100 mg BID PRN Administration CONSTIPATION Enoxaparin Sodium 80 mg 08/16/17 18:00 08/16/17 17:39 Lovenox - SQ 80 mg ONCE MARGARITA Administration Enoxaparin Sodium 80 mg 08/17/17 10:00 08/17/17 10:08 Lovenox - SQ 80 mg DAILY MARGARITA Administration Fentanyl 1 patch 08/14/17 12:00 08/14/17 12:46 Duragesic 12mcg Patch - TD 1 patch Q3D MARGARITA Administration Hydroxyurea 500 mg 08/12/17 10:00 08/17/17 10:07 Hydrea - PO 500 mg DAILY MARGARITA Administration Lactobacillus Acidophilus 1 tab 08/12/17 10:00 08/17/17 10:06 Bacid - PO 1 tab DAILY MARGARITA Administration Lidocaine 1 patch 08/16/17 11:15 08/17/17 10:25 Lidoderm Patch - TP 1 patch DAILY MARGARITA Administration Miscellaneous 1 each 08/14/17 11:56 Duragesic Patch Waste TD PRN PRN PAIN Miscellaneous 1 each 08/16/17 22:00 08/16/17 22:25 Lidoderm Patch Removal MC 1 each DAILY@2200 MARGARITA Administration Phytonadione 5 mg 08/15/17 14:45 08/17/17 10:04 Aqua Mephyton Injection - SQ 08/17/17 14:44 5 mg DAILY MARGARITA Administration Polyethylene Glycol 17 gm 08/12/17 11:30 08/16/17 09:17 Miralax (For Daily Use) - PO Not Given DAILY MARGARITA Ranitidine HCl 150 mg 08/12/17 10:00 08/17/17 10:09 Zantac - PO 150 mg DAILY MARGARITA Administration Senna 2 tab 08/14/17 08:06 08/14/17 10:53 Senna - PO 2 tab HS PRN Administration CONSTIPATION Sotalol HCl 120 mg 08/11/17 22:00 08/17/17 10:07 Betapace - PO 120 mg BID MARGARITA Administration ASSESSMENT/PLAN: This is an 86 year old woman with a history of HTN, MALT lymphoma, PAF, Tucker's thyroiditis, essential thrombocytosis with myelofibrosis, recent portal vein/SMV thrombosis, recent T12 compression fracture, GERD who presented to the ER with back pain. 1. Back pain secondary to T12 compression fracture with conus medullaris compression - Since patient is a poor surgical candidate, at this time will treat conservatively with TLSO brace, physical therapy - T12 facet blocks done 08/15 with no significant improvement - Continue Lidoderm patch - Fentanyl patch started - Continue physical therapy - Possible transfer to [facility] for vertebroplasty 2. HTN - Continue Norvasc - Lasix held secondary to dehydration 3. PAF - Remains in sinus rhythm - Continue Sotalol 4. Essential thrombocytosis with myelofibrosis, anemia - Transfused 1 unit PRBCs - Hemoglobin stable - Maintain hemoglobin > 8.0 - Continue Hydrea, Procrit 5. Portal vein/SMV thrombosis - Failed Coumadin treatment - Continue Lovenox - held for injections 6. MALT lymphoma 7. History of Tucker's thyroiditis 8. GERD - Continue Zantac Visit type - Emergency Visit Emergency Visit: Yes ED Registration Date: 08/11/17 Care time: The patient presented to the Emergency Department on the above date and was hospitalized for further evaluation of their emergent condition. - New Patient This patient is new to me today: No - Critical Care Critical Care patient: No - Discharge Referral Referred to [facility] No
[2017-08-17] MEDS: CHOLECALCIFEROL (VITAMIN D3) 1,000 UNIT TABLET (FP) PO SCH (13:02)
[2017-08-17] MEDS: fentaNYL 12mcg/hr PATCH.TD72 TD SCH (13:03)
--- NOTE | 2017-08-17 14:24 | PN ---
Progress Note (short form) - Note Progress Note: Progress Note (short form) - Note Progress Note: patient seen and examined. She still has pain and pain meds are making her constipated Vital Signs Period Temp Pulse Resp BP Sys/Conde Pulse Ox Last 24 Hr 98.0 F-98.7 F 49-55 18-20 134-144/41-58 96 O/E: General: appears with some discomfort Head: NCAT HEART: S1S2, RRR LUNGS: Clear ABDOMEN: Soft, mildly distended, logan catheter in place EXTREMITIES: No edema CBC, BMP 08/17/17 06:00 08/16/17 06:00 Active Medications Generic Name Dose Route Start Last Admin Trade Name Freq PRN Reason Stop Dose Admin Acetaminophen 650 mg 08/11/17 19:05 08/17/17 06:59 Tylenol - PO 650 mg Q4H PRN Administration FEVER OR PAIN Amlodipine Besylate 10 mg 08/12/17 10:00 08/17/17 10:08 Norvasc - PO 10 mg DAILY MARGARITA Administration Cholecalciferol 2,000 unit 08/12/17 10:00 08/17/17 13:02 Vitamin D3 - PO 2,000 unit DAILY MARGARITA Administration Clonazepam 0.25 mg 08/11/17 22:00 08/17/17 14:06 Klonopin - PO 0.25 mg TID MARGARITA Administration Docusate Sodium 100 mg 08/13/17 10:12 08/14/17 10:52 Colace - PO 100 mg BID PRN Administration CONSTIPATION Enoxaparin Sodium 80 mg 08/16/17 18:00 08/16/17 17:39 Lovenox - SQ 80 mg ONCE MARGARITA Administration Enoxaparin Sodium 80 mg 08/17/17 10:00 08/17/17 10:08 Lovenox - SQ 80 mg DAILY MARGARITA Administration Fentanyl 1 patch 08/14/17 12:00 08/17/17 13:03 Duragesic 12mcg Patch - TD 1 patch Q3D MARGARITA Administration Hydroxyurea 500 mg 08/12/17 10:00 08/17/17 10:07 Hydrea - PO 500 mg DAILY MARGARITA Administration Lactobacillus Acidophilus 1 tab 08/12/17 10:00 08/17/17 10:06 Bacid - PO 1 tab DAILY MARGARITA Administration Lidocaine 1 patch 08/16/17 11:15 08/17/17 10:25 Lidoderm Patch - TP 1 patch DAILY MARGARITA Administration Miscellaneous 1 each 08/14/17 11:56 Duragesic Patch Waste TD PRN PRN PAIN Miscellaneous 1 each 08/16/17 22:00 08/16/17 22:25 Lidoderm Patch Removal MC 1 each DAILY@2200 MARGARITA Administration Phytonadione 5 mg 08/15/17 14:45 08/17/17 10:04 Aqua Mephyton Injection - SQ 08/17/17 14:44 5 mg DAILY MARGARITA Administration Polyethylene Glycol 17 gm 08/12/17 11:30 08/17/17 11:00 Miralax (For Daily Use) - PO 17 gm DAILY MARGARITA Administration Ranitidine HCl 150 mg 08/12/17 10:00 08/17/17 10:09 Zantac - PO 150 mg DAILY MARGARITA Administration Senna 2 tab 08/14/17 08:06 08/14/17 10:53 Senna - PO 2 tab HS PRN Administration CONSTIPATION Sotalol HCl 120 mg 08/11/17 22:00 08/17/17 10:07 Betapace - PO 120 mg BID MARGARITA Administration Assessment/Plan: 86 y/o patient with HTN, MVP, afib, essential thrombocytosis/myelofibrosis, transfusion dependency, ironoverload, abnormal liver MRI ? lesions vs signal abnormality, recent portal/SMV thrombosis, MALT lymphoma s/p RT,s/p recent fall 05/20 with vertebral compression fx and preferred conservative management atthat time Now with Burst fracture. status post t12 facet blocks on 08/15 Will need a brace/physical therapy/rehab They currently dont want to transfer [facility] Pain control and constipation regimen.
[2017-08-17] MEDS: LIDOCAINE PATCH REMOVAL MC SCH (21:10)
[2017-08-18] MEDS: clonazePAM 0.5 MG TABLET PO SCH ×3 (05:04→22:05)
[2017-08-18] MEDS: ACETAMINOPHEN 325 MG TABLET (FP) PO PRN (06:03)
[2017-08-18] MEDS: LACTOBACILLUS ACIDOPHILUS 1 EACH TAB (FP) PO SCH (09:33)
[2017-08-18] MEDS: amLODIPine BESYLATE 10 MG TABLET (FP) PO SCH (09:33)
[2017-08-18] MEDS: CHOLECALCIFEROL (VITAMIN D3) 1,000 UNIT TABLET (FP) PO SCH (09:34)
[2017-08-18] MEDS: SOTALOL HCL 80 MG TABLET (FP) PO SCH ×2 (09:34→22:05)
[2017-08-18] MEDS: POLYETHYLENE GLYCOL 3350 119 GM BTL PO SCH (09:35)
[2017-08-18] MEDS: HYDROXYUREA 500 MG CAPSULE PO SCH (09:35)
[2017-08-18] MEDS: LIDOCAINE 5% TOPICAL PATCH TP SCH (09:35)
[2017-08-18] MEDS: RANITIDINE HCL 150 MG TABLET (FP) PO SCH (09:35)
[2017-08-18] MEDS: ENOXAPARIN NA (PORCINE) 80 MG/0.8 ML DISP.SYRIN SQ SCH ×2 (09:38→10:00)
--- NOTE | 2017-08-18 10:20 | PN ---
Progress Note (short form) - Note Progress Note: NEUROSURGERY Sitting up in bed Some pain States that pain not changed since facet blocks a coupe days ago PE: AF, VSS HEENT- NC/AT; Neck- supple; Cor- Reg; Lungs- decreased BS at bases; Abd- benign , + BS; Ext- no obvious sign of DVT CN- intact; Motor- 4+-5/5 B LE; Sensation- intact LT, vibration; DTR- hyporeflexia; Back- mild kyphosis over TL junction CT T/LS spine : 65-70% reduction of anterior T12 vertebral height; posterior inferior T12 endplate retropulsion; 25 degree kyphosis T11-L1; 35% anterior central canal impingement inf T12 related to burst fx; minimal kyphosis ; modereate L3-4 and L4-5 central and lateral recess stenosis T12 osteoporotic burst fx with minimal if any focal deficit; burst fx generally successfully heal and remodel with time No neurosurgical intervention recommended Pain management followup to consider T12 vertebroplasty for pain control if persistent pain All questions answered
--- NOTE | 2017-08-18 11:09 | PN ---
Progress Note (short form) - Note Progress Note: Still with LBP. Reports no significant change in pain. No CP or SOB. Intake & Output 08/15/17 08/16/17 08/17/17 08/18/17 23:59 23:59 23:59 23:59 Intake Total 100 480 750 240 Output Total 2563 277 8193 1400 Balance -1000 280 -1650 -1160 Last Vital Signs Temp Pulse Resp BP Pulse Ox 98.4 F 51 L 20 161/68 97 08/18/17 05:33 08/18/17 05:33 08/18/17 05:33 08/18/17 05:33 08/17/17 21:00 Active Medications Acetaminophen (Tylenol -) 650 mg PO Q4H PRN PRN Reason: FEVER OR PAIN Last Admin: 08/18/17 06:03 Dose: 650 mg Amlodipine Besylate (Norvasc -) 10 mg PO DAILY [facility] Last Admin: 08/18/17 09:33 Dose: 10 mg Cholecalciferol (Vitamin D3 -) 2,000 unit PO DAILY [facility] Last Admin: 08/18/17 09:34 Dose: 2,000 unit Clonazepam (Klonopin -) 0.25 mg PO TID [facility] Last Admin: 08/18/17 05:04 Dose: 0.25 mg Docusate Sodium (Colace -) 100 mg PO BID PRN PRN Reason: CONSTIPATION Last Admin: 08/14/17 10:52 Dose: 100 mg Enoxaparin Sodium (Lovenox -) 80 mg SQ ONCE [facility] Last Admin: 08/18/17 09:38 Dose: 80 mg Enoxaparin Sodium (Lovenox -) 80 mg SQ DAILY [facility] Last Admin: 08/17/17 10:08 Dose: 80 mg Fentanyl (Duragesic 12mcg Patch -) 1 patch TD Q3D [facility] Last Admin: 08/17/17 13:03 Dose: 1 patch Hydroxyurea (Hydrea -) 500 mg PO DAILY [facility] Last Admin: 08/18/17 09:35 Dose: 500 mg Lactobacillus Acidophilus (Bacid -) 1 tab PO DAILY [facility] Last Admin: 08/18/17 09:33 Dose: 1 tab Lidocaine (Lidoderm Patch -) 1 patch TP DAILY [facility] Last Admin: 08/18/17 09:35 Dose: 1 patch Miscellaneous (Duragesic Patch Waste) 1 each TD PRN PRN PRN Reason: PAIN Miscellaneous (Lidoderm Patch Removal) 1 each MC DAILY@2200 [facility] Last Admin: 08/17/17 21:10 Dose: 1 each Polyethylene Glycol (Miralax (For Daily Use) -) 17 gm PO DAILY [facility] Last Admin: 08/18/17 09:35 Dose: 17 gm Ranitidine HCl (Zantac -) 150 mg PO DAILY [facility] Last Admin: 08/18/17 09:35 Dose: 150 mg Senna (Senna -) 2 tab PO HS PRN PRN Reason: CONSTIPATION Last Admin: 08/14/17 10:53 Dose: 2 tab Sotalol HCl (Betapace -) 120 mg PO BID [facility] Last Admin: 08/18/17 09:34 Dose: 120 mg Constitutional: Yes: uncomfortable due to pain, No Distress Eyes: Yes: Conjunctiva Clear, EOM Intact HENT: Yes: Atraumatic, Normocephalic Neck: Yes: Supple, Trachea Midline Cardiovascular: Yes: Regular Rate and Rhythm Respiratory: Yes: Regular, CTA Bilaterally ...Clubbing: No Gastrointestinal: Yes: Normal Bowel Sounds, Soft Renal/: Yes: WNL Musculoskeletal: Yes: Back Pain Extremities: Yes: WNL Edema: No Peripheral Pulses WNL: Yes Integumentary: Yes: WNL Neurological: Yes: Alert, Oriented ...Motor Strength: WNL Psychiatric: Yes: WNL, Alert, Oriented Labs: Problem List - Problems (1) Compression fracture of lumbar vertebra Code(s): S32.000A - WEDGE COMPRESSION FRACTURE OF UNSP LUMBAR VERTEBRA, INIT Qualifiers: Encounter type: initial encounter Fracture type: closed (2) Anxiety Code(s): F41.9 - ANXIETY DISORDER, UNSPECIFIED (3) GERD (gastroesophageal reflux disease) Code(s): K21.9 - GASTRO-ESOPHAGEAL REFLUX DISEASE WITHOUT ESOPHAGITIS (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 (5) History of Coumadin therapy Code(s): Z79.01 - HVAC SERVICES PROFESSIONAL (CURRENT) USE OF 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 (6) Hypertension Code(s): I10 - ESSENTIAL (PRIMARY) HYPERTENSION (7) MALT lymphoma Code(s): C88.4 - EXTRNOD MRGNL ZN B-CELL LYMPH OF MUCOS[place]-ASSOC LYMPHOID TISS (8) Myelodysplastic syndrome Code(s): D46.9 - MYELODYSPLASTIC SYNDROME, UNSPECIFIED (9) Myeloproliferative disease Code(s): D47.1 - CHRONIC MYELOPROLIFERATIVE DISEASE (10) Depression Code(s): F32.9 - MAJOR DEPRESSIVE DISORDER, SINGLE EPISODE, UNSPECIFIED Qualifiers: Depression Type: other depression Qualified Code(s): F32.89 - Other specified depressive episodes; F32.89 - Other specified depressive episodes; F32.89 - Other specified depressive episodes (11) Lymphoma Code(s): C85.90 - NON-HODGKIN LYMPHOMA, UNSPECIFIED, UNSPECIFIED SITE (12) A-fib Code(s): I48.91 - UNSPECIFIED ATRIAL FIBRILLATION Qualifiers: Atrial fibrillation type: paroxysmal Qualified Code(s): I48.0 - Paroxysmal atrial fibrillation; I48.0 - Paroxysmal atrial fibrillation; I48.0 - Paroxysmal atrial fibrillation; I48.0 - Paroxysmal atrial fibrillation (13) History of Tucker thyroiditis Code(s): Z86.39 - PERSONAL HISTORY OF ENDO, NUTRITIONAL AND METABOLIC DISEASE (14) Mitral valve prolapse syndrome Code(s): I34.1 - NONRHEUMATIC MITRAL (VALVE) PROLAPSE (15) Paroxysmal a-fib Code(s): I48.0 - PAROXYSMAL ATRIAL FIBRILLATION (16) Portal vein thrombosis Code(s): I81 - PORTAL VEIN THROMBOSIS (17) Vertigo Code(s): R42 - DIZZINESS AND GIDDINESS Assessment/Plan Medical management of LBP For possible transfer to tertiary care center for further management Pain management O2 as needed Dr Zuleta Problem List - Problems (1) Compression fracture of lumbar vertebra Code(s): S32.000A - WEDGE COMPRESSION FRACTURE OF UNSP LUMBAR VERTEBRA, INIT Qualifiers: Encounter type: initial encounter Fracture type: closed (2) Anxiety Code(s): F41.9 - ANXIETY DISORDER, UNSPECIFIED (3) GERD (gastroesophageal reflux disease) Code(s): K21.9 - GASTRO-ESOPHAGEAL REFLUX DISEASE WITHOUT ESOPHAGITIS (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 (5) History of Coumadin therapy Code(s): Z79.01 - HVAC SERVICES PROFESSIONAL (CURRENT) USE OF 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 (6) Hypertension Code(s): I10 - ESSENTIAL (PRIMARY) HYPERTENSION (7) MALT lymphoma Code(s): C88.4 - EXTRNOD MRGNL ZN B-CELL LYMPH OF MUCOS[place]-ASSOC LYMPHOID TISS (8) Myelodysplastic syndrome Code(s): D46.9 - MYELODYSPLASTIC SYNDROME, UNSPECIFIED (9) Myeloproliferative disease Code(s): D47.1 - CHRONIC MYELOPROLIFERATIVE DISEASE (10) Depression Code(s): F32.9 - MAJOR DEPRESSIVE DISORDER, SINGLE EPISODE, UNSPECIFIED Qualifiers: Depression Type: other depression Qualified Code(s): F32.89 - Other specified depressive episodes; F32.89 - Other specified depressive episodes; F32.89 - Other specified depressive episodes (11) Lymphoma Code(s): C85.90 - NON-HODGKIN LYMPHOMA, UNSPECIFIED, UNSPECIFIED SITE (12) A-fib Code(s): I48.91 - UNSPECIFIED ATRIAL FIBRILLATION Qualifiers: Atrial fibrillation type: paroxysmal Qualified Code(s): I48.0 - Paroxysmal atrial fibrillation; I48.0 - Paroxysmal atrial fibrillation; I48.0 - Paroxysmal atrial fibrillation; I48.0 - Paroxysmal atrial fibrillation (13) History of Tucker thyroiditis Code(s): Z86.39 - PERSONAL HISTORY OF ENDO, NUTRITIONAL AND METABOLIC DISEASE (14) Mitral valve prolapse syndrome Code(s): I34.1 - NONRHEUMATIC MITRAL (VALVE) PROLAPSE (15) Paroxysmal a-fib Code(s): I48.0 - PAROXYSMAL ATRIAL FIBRILLATION (16) Portal vein thrombosis Code(s): I81 - PORTAL VEIN THROMBOSIS (17) Vertigo Code(s): R42 - DIZZINESS AND GIDDINESS
--- NOTE | 2017-08-18 12:34 | PN ---
Physical Exam: SUBJECTIVE: Patient seen and examined. She continues to have low back pain. Constipation is improved. OBJECTIVE: Vital Signs Period Temp Pulse Resp BP Sys/Conde Pulse Ox Last 24 Hr 98.2 F-98.4 F 51-57 18-20 127-161/40-68 97 GENERAL: The patient is awake, alert, and fully oriented, in no acute distress. LUNGS: Breath sounds equal, clear to auscultation bilaterally, no wheezes, no crackles, no accessory muscle use. HEART: Regular rate and rhythm, S1, S2 without murmur, rub or gallop. ABDOMEN: Soft, nontender, nondistended, normoactive bowel sounds, no guarding, no rebound, no hepatosplenomegaly, no masses. EXTREMITIES: 2+ pulses, warm, well-perfused, no edema. Active Medications Generic Name Dose Route Start Last Admin Trade Name Freq PRN Reason Stop Dose Admin Acetaminophen 650 mg 08/11/17 19:05 08/18/17 06:03 Tylenol - PO 650 mg Q4H PRN Administration FEVER OR PAIN Amlodipine Besylate 10 mg 08/12/17 10:00 08/18/17 09:33 Norvasc - PO 10 mg DAILY [facility] Administration Cholecalciferol 2,000 unit 08/12/17 10:00 08/18/17 09:34 Vitamin D3 - PO 2,000 unit DAILY [facility] Administration Clonazepam 0.25 mg 08/11/17 22:00 08/18/17 05:04 Klonopin - PO 0.25 mg TID [facility] Administration Docusate Sodium 100 mg 08/13/17 10:12 08/14/17 10:52 Colace - PO 100 mg BID PRN Administration CONSTIPATION Enoxaparin Sodium 80 mg 08/16/17 18:00 08/18/17 09:38 Lovenox - SQ 80 mg ONCE [facility] Administration Enoxaparin Sodium 80 mg 08/17/17 10:00 08/17/17 10:08 Lovenox - SQ 80 mg DAILY [facility] Administration Fentanyl 1 patch 08/14/17 12:00 08/17/17 13:03 Duragesic 12mcg Patch - TD 1 patch Q3D [facility] Administration Hydroxyurea 500 mg 08/12/17 10:00 08/18/17 09:35 Hydrea - PO 500 mg DAILY [facility] Administration Lactobacillus Acidophilus 1 tab 08/12/17 10:00 08/18/17 09:33 Bacid - PO 1 tab DAILY [facility] Administration Lidocaine 1 patch 08/16/17 11:15 08/18/17 09:35 Lidoderm Patch - TP 1 patch DAILY [facility] Administration Miscellaneous 1 each 08/14/17 11:56 Duragesic Patch Waste TD PRN PRN PAIN Miscellaneous 1 each 08/16/17 22:00 08/17/17 21:10 Lidoderm Patch Removal MC 1 each DAILY@2200 [facility] Administration Polyethylene Glycol 17 gm 08/12/17 11:30 08/18/17 09:35 Miralax (For Daily Use) - PO 17 gm DAILY [facility] Administration Ranitidine HCl 150 mg 08/12/17 10:00 08/18/17 09:35 Zantac - PO 150 mg DAILY [facility] Administration Senna 2 tab 08/14/17 08:06 08/14/17 10:53 Senna - PO 2 tab HS PRN Administration CONSTIPATION Sotalol HCl 120 mg 08/11/17 22:00 08/18/17 09:34 Betapace - PO 120 mg BID [facility] Administration ASSESSMENT/PLAN: This is an 86 year old woman with a history of HTN, MALT lymphoma, PAF, Tucker's thyroiditis, essential thrombocytosis with myelofibrosis, recent portal vein/SMV thrombosis, recent T12 compression fracture, GERD who presented to the ER with back pain. 1. Back pain secondary to T12 compression fracture with conus medullaris compression - Since patient is a poor surgical candidate, conservative management with TLSO brace, physical therapy was recommended - T12 facet blocks done 08/15 with no significant improvement - Continue Lidoderm patch, Fentanyl patch - Continue physical therapy - walked 20 feet with rolling walker today and reported pain /10 - Patient is agreeable to transfer to [facility] for vertebroplasty 2. HTN - Continue Norvasc - Lasix held secondary to dehydration 3. PAF - Remains in sinus rhythm - Continue Sotalol 4. Essential thrombocytosis with myelofibrosis, anemia - Transfused 1 unit PRBCs - Hemoglobin stable - Maintain hemoglobin > 8.0 - Continue Hydrea, Procrit 5. Portal vein/SMV thrombosis - Failed Coumadin treatment - Continue Lovenox - hold in AM if vertebroplasty is planned 6. MALT lymphoma 7. History of Tucker's thyroiditis 8. GERD - Continue Zantac 9. Constipation - Improved - Continue Colace, Senna, Miralax as needed Visit type - Emergency Visit Emergency Visit: Yes ED Registration Date: 08/11/17 Care time: The patient presented to the Emergency Department on the above date and was hospitalized for further evaluation of their emergent condition. - New Patient This patient is new to me today: No - Critical Care Critical Care patient: No - Discharge Referral Referred to [facility] Med P.C.: No
--- NOTE | 2017-08-18 13:57 | PN ---
Progress Note (short form) - Note Progress Note: Progress Note (short form) - Note Progress Note: patient seen keith is sleeping well yesterday she walked with PT. CBC, BMP 08/17/17 06:00 08/16/17 06:00 Vital Signs Period Temp Pulse Resp BP Sys/Conde Pulse Ox Last 24 Hr 97.8 F-98.4 F 49-57 18-20 127-161/40-78 97 Current Medications Generic Name Dose Route Start Last Admin Trade Name Freq PRN Reason Stop Dose Admin Acetaminophen 650 mg 08/11/17 19:05 08/18/17 06:03 Tylenol - PO 650 mg Q4H PRN Administration FEVER OR PAIN Amlodipine Besylate 10 mg 08/12/17 10:00 08/18/17 09:33 Norvasc - PO 10 mg DAILY [facility] Administration Cholecalciferol 2,000 unit 08/12/17 10:00 08/18/17 09:34 Vitamin D3 - PO 2,000 unit DAILY [facility] Administration Clonazepam 0.25 mg 08/11/17 22:00 08/18/17 13:44 Klonopin - PO 0.25 mg TID [facility] Administration Docusate Sodium 100 mg 08/13/17 10:12 08/14/17 10:52 Colace - PO 100 mg BID PRN Administration CONSTIPATION Enoxaparin Sodium 80 mg 08/16/17 18:00 08/18/17 09:38 Lovenox - SQ 80 mg ONCE [facility] Administration Enoxaparin Sodium 80 mg 08/17/17 10:00 08/18/17 10:00 Lovenox - SQ 80 mg DAILY [facility] Administration Fentanyl 1 patch 08/14/17 12:00 08/17/17 13:03 Duragesic 12mcg Patch - TD 1 patch Q3D [facility] Administration Hydroxyurea 500 mg 08/12/17 10:00 08/18/17 09:35 Hydrea - PO 500 mg DAILY [facility] Administration Lactobacillus Acidophilus 1 tab 08/12/17 10:00 08/18/17 09:33 Bacid - PO 1 tab DAILY [facility] Administration Lidocaine 1 patch 08/16/17 11:15 08/18/17 09:35 Lidoderm Patch - TP 1 patch DAILY [facility] Administration Miscellaneous 1 each 08/14/17 11:56 Duragesic Patch Waste TD PRN PRN PAIN Miscellaneous 1 each 08/16/17 22:00 08/17/17 21:10 Lidoderm Patch Removal MC 1 each DAILY@2200 [facility] Administration Polyethylene Glycol 17 gm 08/12/17 11:30 08/18/17 09:35 Miralax (For Daily Use) - PO 17 gm DAILY [facility] Administration Ranitidine HCl 150 mg 08/12/17 10:00 08/18/17 09:35 Zantac - PO 150 mg DAILY [facility] Administration Senna 2 tab 08/14/17 08:06 08/14/17 10:53 Senna - PO 2 tab HS PRN Administration CONSTIPATION Sotalol HCl 120 mg 08/11/17 22:00 08/18/17 09:34 Betapace - PO 120 mg BID [facility] Administration Assessment/Plan: 86 y/o patient with HTN, MVP, afib, essential thrombocytosis/myelofibrosis, transfusion dependency, ironoverload, abnormal liver MRI ? lesions vs signal abnormality, recent portal/SMV thrombosis, MALT lymphoma s/p RT,s/p recent fall 05/20 with vertebral compression fx and preferred conservative management at that time Now with Burst fracture. status post t12 facet blocks on 08/15 Will need a brace/physical therapy/rehab They currently dont want to transfer to [facility] Pain control and constipation regimen.
[2017-08-18] MEDS ORDERED: POLYETHYLENE GLYCOL 3350 119 GM BTL PO PRN (14:51)
[2017-08-18] MEDS: DOCUSATE SODIUM 100 MG CAPSULE (FP) PO SCH (22:05)
[2017-08-18] MEDS: SENNOSIDES 8.6MG TABLET (FP) PO SCH ×2 (22:06→22:10)
[2017-08-18] MEDS: LIDOCAINE PATCH REMOVAL MC SCH (22:07)
[2017-08-19] MEDS: ACETAMINOPHEN 325 MG TABLET (FP) PO PRN ×2 (03:47→13:59)
[2017-08-19] MEDS: clonazePAM 0.5 MG TABLET PO SCH ×3 (06:50→21:33)
[2017-08-19 07:22] LABS: MCH 25.7 pg (25.7-33.7); MEAN CELL VOLUME 80.2 fl (80-96); MEAN PLT VOLUME 8.5 fl (7.5-11.1); PLATELET COUNT 391 K/MM3 (134-434); WHITE BLOOD COUNT 6.5 K/mm3 (4.0-10.0)
[2017-08-19 07:52] LABS: ANION GAP 10 (8-16); CALCIUM 8.1 mg/dL (8.5-10.1); CO2 24 mmol/L (21-32); CREATININE 0.7 mg/dL (0.55-1.02); GLUCOSE,RANDOM 81 mg/dL (74-106)
[2017-08-19] MEDS: LACTOBACILLUS ACIDOPHILUS 1 EACH TAB (FP) PO SCH (10:05)
[2017-08-19] MEDS: RANITIDINE HCL 150 MG TABLET (FP) PO SCH (10:05)
[2017-08-19] MEDS: CHOLECALCIFEROL (VITAMIN D3) 1,000 UNIT TABLET (FP) PO SCH (10:05)
[2017-08-19] MEDS: amLODIPine BESYLATE 10 MG TABLET (FP) PO SCH (10:05)
[2017-08-19] MEDS: HYDROXYUREA 500 MG CAPSULE PO SCH (10:05)
[2017-08-19] MEDS: SOTALOL HCL 80 MG TABLET (FP) PO SCH ×2 (10:05→21:33)
[2017-08-19] MEDS: DOCUSATE SODIUM 100 MG CAPSULE (FP) PO SCH ×2 (10:05→21:34)
[2017-08-19] MEDS: LIDOCAINE 5% TOPICAL PATCH TP SCH (10:06)
--- NOTE | 2017-08-19 10:37 | PN ---
Progress Note (short form) - Note Progress Note: PULMONARY Still with back pain, inability to walk much. No shortness of breath or chest pain. Last Vital Signs Temp Pulse Resp BP Pulse Ox 97.9 F 56 L 18 140/52 97 08/19/17 10:00 08/19/17 10:00 08/19/17 10:00 08/19/17 10:00 08/18/17 21:00 Gen: NAD at rest Heart: RRR Lung: decreased breath sounds at the bases Abd: soft, nontender Ext: no edema CBC, BMP 08/19/17 05:35 08/19/17 05:35 Active Medications Acetaminophen (Tylenol -) 650 mg PO Q4H PRN PRN Reason: FEVER OR PAIN Last Admin: 08/19/17 03:47 Dose: 650 mg Amlodipine Besylate (Norvasc -) 10 mg PO DAILY [facility] Last Admin: 08/19/17 10:05 Dose: 10 mg Cholecalciferol (Vitamin D3 -) 2,000 unit PO DAILY [facility] Last Admin: 08/19/17 10:05 Dose: 2,000 unit Clonazepam (Klonopin -) 0.25 mg PO TID [facility] Last Admin: 08/19/17 06:50 Dose: 0.25 mg Docusate Sodium (Colace -) 100 mg PO BID [facility] Last Admin: 08/19/17 10:05 Dose: 100 mg Fentanyl (Duragesic 12mcg Patch -) 1 patch TD Q3D [facility] Last Admin: 08/17/17 13:03 Dose: 1 patch Hydroxyurea (Hydrea -) 500 mg PO DAILY [facility] Last Admin: 08/19/17 10:05 Dose: 500 mg Lactobacillus Acidophilus (Bacid -) 1 tab PO DAILY [facility] Last Admin: 08/19/17 10:05 Dose: 1 tab Lidocaine (Lidoderm Patch -) 1 patch TP DAILY [facility] Last Admin: 08/19/17 10:06 Dose: 1 patch Miscellaneous (Duragesic Patch Waste) 1 each TD PRN PRN PRN Reason: PAIN Miscellaneous (Lidoderm Patch Removal) 1 each MC DAILY@2200 [facility] Last Admin: 08/18/17 22:07 Dose: 1 each Polyethylene Glycol (Miralax (For Daily Use) -) 17 gm PO DAILY PRN PRN Reason: CONSTIPATION Ranitidine HCl (Zantac -) 150 mg PO DAILY [facility] Last Admin: 08/19/17 10:05 Dose: 150 mg Senna (Senna -) 2 tab PO HS [facility] Last Admin: 08/18/17 22:10 Dose: Not Given Sotalol HCl (Betapace -) 120 mg PO BID [facility] Last Admin: 08/19/17 10:05 Dose: 120 mg A/P Intractable Back Pain T12 Compression Fracture MALT Lymphoma Paroxysmal Atrial Fibrillation Portal Vein/SMV Thrombosis Essential Thrombocytosis/Myelofibrosis - pain control - kyphoplasty being considered - rehab/PT - continue anticoagulation - monitor H/H
--- NOTE | 2017-08-19 16:06 | PN ---
Progress Note (short form) - Note Progress Note: Patient seen and examined still with back pain did some physical therapy today Last Vital Signs Temp Pulse Resp BP Pulse Ox 98.1 F 55 L 20 135/50 97 08/19/17 14:05 08/19/17 14:05 08/19/17 14:05 08/19/17 14:05 08/19/17 09:00 Cor: RSR, No murmurs, No gallops Lungs: Clear to P&A Abd: Soft, Normal bowel sounds, No organomegaly Ext:No significant edema Skin: No rashes, Integument intact Abnormal Lab Results 08/19/17 08/19/17 05:35 05:35 RBC 3.20 L Hgb 8.2 L D Hct 25.6 L RDW 17.0 H Sodium 134 L BUN 36 H D Calcium 8.1 L Active Medications Acetaminophen (Tylenol -) 650 mg PO Q4H PRN PRN Reason: FEVER OR PAIN Last Admin: 08/19/17 13:59 Dose: 650 mg Amlodipine Besylate (Norvasc -) 10 mg PO DAILY [facility] Last Admin: 08/19/17 10:05 Dose: 10 mg Cholecalciferol (Vitamin D3 -) 2,000 unit PO DAILY [facility] Last Admin: 08/19/17 10:05 Dose: 2,000 unit Clonazepam (Klonopin -) 0.25 mg PO TID [facility] Last Admin: 08/19/17 13:58 Dose: 0.25 mg Docusate Sodium (Colace -) 100 mg PO BID [facility] Last Admin: 08/19/17 10:05 Dose: 100 mg Fentanyl (Duragesic 12mcg Patch -) 1 patch TD Q3D [facility] Last Admin: 08/17/17 13:03 Dose: 1 patch Hydroxyurea (Hydrea -) 500 mg PO DAILY [facility] Last Admin: 08/19/17 10:05 Dose: 500 mg Lactobacillus Acidophilus (Bacid -) 1 tab PO DAILY [facility] Last Admin: 08/19/17 10:05 Dose: 1 tab Lidocaine (Lidoderm Patch -) 1 patch TP DAILY [facility] Last Admin: 08/19/17 10:06 Dose: 1 patch Miscellaneous (Duragesic Patch Waste) 1 each TD PRN PRN PRN Reason: PAIN Miscellaneous (Lidoderm Patch Removal) 1 each MC DAILY@2200 [facility] Last Admin: 08/18/17 22:07 Dose: 1 each Polyethylene Glycol (Miralax (For Daily Use) -) 17 gm PO DAILY PRN PRN Reason: CONSTIPATION Ranitidine HCl (Zantac -) 150 mg PO DAILY [facility] Last Admin: 08/19/17 10:05 Dose: 150 mg Senna (Senna -) 2 tab PO HS [facility] Last Admin: 08/18/17 22:10 Dose: Not Given Sotalol HCl (Betapace -) 120 mg PO BID [facility] Last Admin: 08/19/17 10:05 Dose: 120 mg A/P 86 y/o patient with MPD, MALT lymphoma, iron overload, abnormal liver MRI, comes in with worsening compression fracture. Now a burst fracture s/p epidural steroid today daughters would like to discuss with neuro IR at [facility] prior to transfer Contact nos. given to IR team at [facility]. Daughters may be able to discuss with team tomorrow brace/rehab resume lovenox urology consult regaridng logan ID consult--s.aureus in the urine
[2017-08-19] MEDS ORDERED: ENOXAPARIN NA (PORCINE) 80 MG/0.8 ML DISP.SYRIN SQ SCH (18:00)
--- NOTE | 2017-08-19 18:18 | PN ---
Teaching Attending Note Name of Resident: Milton Vickers ATTENDING PHYSICIAN STATEMENT I saw and evaluated the patient. I reviewed the resident's note and discussed the case with the resident. I agree with the resident's findings and plan as documented. SUBJECTIVE: OBJECTIVE: Vital Signs Period Temp Pulse Resp BP Sys/Conde Pulse Ox Last 24 Hr 97.9 F-98.8 F 55-98 18-20 112-143/47-72 97-97 Current Medications Generic Name Dose Route Start Last Admin Trade Name Freq PRN Reason Stop Dose Admin Acetaminophen 650 mg 08/11/17 19:05 08/19/17 13:59 Tylenol - PO 650 mg Q4H PRN Administration FEVER OR PAIN Amlodipine Besylate 10 mg 08/12/17 10:00 08/19/17 10:05 Norvasc - PO 10 mg DAILY [facility] Administration Cholecalciferol 2,000 unit 08/12/17 10:00 08/19/17 10:05 Vitamin D3 - PO 2,000 unit DAILY [facility] Administration Clonazepam 0.25 mg 08/11/17 22:00 08/19/17 13:58 Klonopin - PO 0.25 mg TID [facility] Administration Docusate Sodium 100 mg 08/18/17 22:00 08/19/17 10:05 Colace - PO 100 mg BID [facility] Administration Enoxaparin Sodium 80 mg 08/19/17 18:00 Lovenox - SQ DAILY [facility] Fentanyl 1 patch 08/14/17 12:00 08/17/17 13:03 Duragesic 12mcg Patch - TD 1 patch Q3D [facility] Administration Hydroxyurea 500 mg 08/12/17 10:00 08/19/17 10:05 Hydrea - PO 500 mg DAILY [facility] Administration Lactobacillus Acidophilus 1 tab 08/12/17 10:00 08/19/17 10:05 Bacid - PO 1 tab DAILY [facility] Administration Lidocaine 1 patch 08/16/17 11:15 08/19/17 10:06 Lidoderm Patch - TP 1 patch DAILY [facility] Administration Miscellaneous 1 each 08/14/17 11:56 Duragesic Patch Waste TD PRN PRN PAIN Miscellaneous 1 each 08/16/17 22:00 08/18/17 22:07 Lidoderm Patch Removal MC 1 each DAILY@2200 [facility] Administration Polyethylene Glycol 17 gm 08/18/17 14:51 Miralax (For Daily Use) - PO DAILY PRN CONSTIPATION Ranitidine HCl 150 mg 08/12/17 10:00 08/19/17 10:05 Zantac - PO 150 mg DAILY [facility] Administration Senna 2 tab 08/18/17 22:00 08/18/17 22:10 Senna - PO Not Given HS [facility] Sotalol HCl 120 mg 08/11/17 22:00 08/19/17 10:05 Betapace - PO 120 mg BID [facility] Administration ASSESSMENT AND PLAN:
--- NOTE | 2017-08-19 21:05 | PN ---
Physical Exam: SUBJECTIVE: Patient seen and examined at bedside. Still complains of back pain S/P T12 facet block, on morphine and Tylenol and ledodermal patch. Constipation improved.Denies fever, chills N/V/D. Denies Numbness, weakness, tingling in all ext. OBJECTIVE: Vital Signs Period Temp Pulse Resp BP Sys/Conde Pulse Ox Last 24 Hr 97.9 F-98.8 F 51-98 18-20 112-143/47-72 97 GENERAL: The patient is awake, alert, and fully oriented, in no acute distress. HEAD: Normal with no signs of trauma. EYES: sclera anicteric, conjunctiva clear. ENT: moist mucous membranes. LUNGS: Breath sounds equal, clear to auscultation bilaterally, no wheezes, no crackles, no accessory muscle use. HEART: Regular rate and rhythm, S1, S2 without murmur, rub or gallop. ABDOMEN: Soft, nontender, nondistended, normoactive bowel sounds, no guarding, no rebound, logan in place. EXTREMITIES: warm, well-perfused, no edema. sensation intact. NEUROLOGICAL: good mentation SKIN: Warm, dry, normal turgor, no rashes or lesions noted Laboratory Results - last 24 hr 08/19/17 08/19/17 05:35 05:35 WBC 6.5 RBC 3.20 L Hgb 8.2 L D Hct 25.6 L MCV 80.2 MCH 25.7 MCHC 32.0 RDW 17.0 H Plt Count 391 MPV 8.5 Sodium 134 L Potassium 5.0 Chloride 100 Carbon Dioxide 24 Anion Gap 10 BUN 36 H D Creatinine 0.7 Random Glucose 81 D Calcium 8.1 L Active Medications Generic Name Dose Route Start Last Admin Trade Name Freq PRN Reason Stop Dose Admin Acetaminophen 650 mg 08/11/17 19:05 08/19/17 13:59 Tylenol - PO 650 mg Q4H PRN Administration FEVER OR PAIN Amlodipine Besylate 10 mg 08/12/17 10:00 08/19/17 10:05 Norvasc - PO 10 mg DAILY MARGARITA Administration Cholecalciferol 2,000 unit 08/12/17 10:00 08/19/17 10:05 Vitamin D3 - PO 2,000 unit DAILY MARGARITA Administration Clonazepam 0.25 mg 08/11/17 22:00 08/19/17 13:58 Klonopin - PO 0.25 mg TID MARGARITA Administration Docusate Sodium 100 mg 08/18/17 22:00 08/19/17 10:05 Colace - PO 100 mg BID MARGARITA Administration Enoxaparin Sodium 80 mg 08/19/17 18:00 08/19/17 18:36 Lovenox - SQ 80 mg DAILY MARGARITA Administration Fentanyl 1 patch 08/14/17 12:00 08/17/17 13:03 Duragesic 12mcg Patch - TD 1 patch Q3D MARGARITA Administration Hydroxyurea 500 mg 08/12/17 10:00 08/19/17 10:05 Hydrea - PO 500 mg DAILY MARGARITA Administration Lactobacillus Acidophilus 1 tab 08/12/17 10:00 08/19/17 10:05 Bacid - PO 1 tab DAILY MARGARITA Administration Lidocaine 1 patch 08/16/17 11:15 08/19/17 10:06 Lidoderm Patch - TP 1 patch DAILY MARGARITA Administration Miscellaneous 1 each 08/14/17 11:56 Duragesic Patch Waste TD PRN PRN PAIN Miscellaneous 1 each 08/16/17 22:00 08/18/17 22:07 Lidoderm Patch Removal MC 1 each DAILY@2200 MARGARITA Administration Polyethylene Glycol 17 gm 08/18/17 14:51 Miralax (For Daily Use) - PO DAILY PRN CONSTIPATION Ranitidine HCl 150 mg 08/12/17 10:00 08/19/17 10:05 Zantac - PO 150 mg DAILY MARGARITA Administration Senna 2 tab 08/18/17 22:00 08/18/17 22:10 Senna - PO Not Given HS [facility] Sotalol HCl 120 mg 08/11/17 22:00 08/19/17 10:05 Betapace - PO 120 mg BID MARGARITA Administration CBC, BMP 08/19/17 05:35 08/19/17 05:35 Microbiology 08/16/17 22:10 Urine - Urine - Catheterized Urine Culture - Preliminary Staphylococcus Aureus 08/13/17 15:15 Blood - Peripheral Venous Blood Culture - Final NO GROWTH AFTER 5 DAYS INCUBATION 08/13/17 15:15 Blood - Peripheral Venous Blood Culture - Final NO GROWTH AFTER 5 DAYS INCUBATION ASSESSMENT/PLAN: 86yo F hx HTN, lymphoma, al's, GERD, thrombocytopenia, portal vein thrombosis presented to the ED with 5 days of worsening Lower back pain. Pt had a T12 compression fracture 4 months ago, was in rehab for 4 months. Today presented with sever back pain was found to have urinary retention and compression fracture and was admitted for further evaluation. # cord compression at T12 due to burst compression fracture * CT scan reviewed shows 50 % effacement of spinal canal at T12 * MRI lumbar spine , pt was not able to sit settled in the MRI X3 , * pain killer with Morphine 2 mg IVPUSH Q 4hr, Tylenol 650 PO Q6 hr * S/p T12 facet block on 08/15 * Neurosurgery consultation , , conservative treatment no surgery for now. * Hematology,Pulmonary, cardiology on board * fall precautions * Plan to proceed with conservative treatment , pain management , PT, epidural steroid and kyphoplasty consider she is at high risk for surgery. * Blood Cx no growth, Urine Cx Staph aureus . * pending transfer to [facility] for possible Kyphoplasty * Continue Lidoderm patch, Fentanyl patch * Continue physical therapy - walked 20 feet with rolling walker today and reported pain #Urinary retention 2/2 cord compression at T12, with new onset UTI * She feels the urge but not able to empty her bladder * Bladder scan >342 cc at admission * maintain Logan * U cx Staph aureus * Consider UA, * consider Start Ceftriaxone 1 gm daily # Constipation 2/2 meds vs immobile, resolved * Continue Miralax 17 po daily and Colace 100 BID * Continue Senna 100 BID, * Colace 2 tab HS * # Hyponatremia, likley 2/2 low oral intake , resolved * Repeat CMP in AM * advance her diet to low sodium diet due to HTN # HTN * normotensive * Hold lasix * continue Amlodipine 10 mg PO daily, * # Lymphoma , Malt * Hematology on the board * can follow as out patient * continue home meds #Paroxysmal afib * remains in sinus tach * c/w sotalol 120 po daily ; * continue Lovenox 80 mg daily * consider to hold if surgery considered # 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 * S/p transfuse 1 unit PRBC. goal Hgb >8. H/H 8.05/30 today * cont hydroxyurea. * continue procrit # Portal vein/SMV thrombosis * on full dose lovenox 80 daily * Failed coumadin treatment #Anxiety * c/w klonopin 0.25 mg po bid prn for anxiety # H/O Al Thyroiditis * F/U as out patient # GERD, * Continue Zantac # FEN * F :on no fluids * E: Monitor * N: low sodium diet # Proph * DVT: SCDs, lovenox 80 , * GI : no need for now * PT eval # dispo * Admit to med -surg * hem and cardio on board for risk stratification , high risk for surgery, conservative management for now * S/p epidural steroid injection * [facility] Visit type - Emergency Visit Emergency Visit: Yes ED Registration Date: 08/11/17 Care time: The patient presented to the Emergency Department on the above date and was hospitalized for further evaluation of their emergent condition. - New Patient This patient is new to me today: No - Critical Care Critical Care patient: No
[2017-08-19] MEDS: SENNOSIDES 8.6MG TABLET (FP) PO SCH (21:33)
[2017-08-19] MEDS: LIDOCAINE PATCH REMOVAL MC SCH (21:34)
[2017-08-20] MEDS: clonazePAM 0.5 MG TABLET PO SCH ×3 (06:20→21:53)
[2017-08-20] MEDS: ACETAMINOPHEN 325 MG TABLET (FP) PO PRN ×2 (06:21→13:42)
[2017-08-20] MEDS ORDERED: CEFTRIAXONE 1 G/50 ML PREMIX 50 ML IVPB ONE (06:43)
[2017-08-20 07:47] LABS: MCHC 32.5 g/dl (32.0-36.0); MEAN CELL VOLUME 79.9 fl (80-96); MEAN PLT VOLUME 7.6 fl (7.5-11.1); PLATELET COUNT 449 K/MM3 (134-434); WHITE BLOOD COUNT 8.1 K/mm3 (4.0-10.0)
[2017-08-20 08:12] LABS: ANION GAP 7 (8-16); CALCIUM 8.6 mg/dL (8.5-10.1); CO2 27 mmol/L (21-32); CREATININE 0.7 mg/dL (0.55-1.02); GLUCOSE,RANDOM 82 mg/dL (74-106)
[2017-08-20 09:14] LABS: INR 1.11 (0.82-1.09); PROTHROMBIN TIME (PATIENT) 12.5 SEC (9.98-11.88)
[2017-08-20] MEDS: amLODIPine BESYLATE 10 MG TABLET (FP) PO SCH (09:38)
[2017-08-20] MEDS: LACTOBACILLUS ACIDOPHILUS 1 EACH TAB (FP) PO SCH (09:38)
[2017-08-20] MEDS: SOTALOL HCL 80 MG TABLET (FP) PO SCH ×2 (09:38→21:54)
[2017-08-20] MEDS: HYDROXYUREA 500 MG CAPSULE PO SCH (09:38)
[2017-08-20] MEDS: DOCUSATE SODIUM 100 MG CAPSULE (FP) PO SCH ×2 (09:38→21:55)
[2017-08-20] MEDS: RANITIDINE HCL 150 MG TABLET (FP) PO SCH (09:38)
[2017-08-20] MEDS: CHOLECALCIFEROL (VITAMIN D3) 1,000 UNIT TABLET (FP) PO SCH (09:38)
[2017-08-20] MEDS: LIDOCAINE 5% TOPICAL PATCH TP SCH (09:39)
--- NOTE | 2017-08-20 10:31 | PN ---
Progress Note (short form) - Note Progress Note: ID asymptomatic bacteruria Will change logan, send repeat urinalysis, c/s Observe off antibiotics
--- NOTE | 2017-08-20 10:36 | PN ---
Progress Note (short form) - Note Progress Note: PULMONARY Still with back pain. No shortness of breath or chest pain. Last Vital Signs Temp Pulse Resp BP Pulse Ox 97.7 F 58 L 20 149/58 95 08/20/17 06:00 08/20/17 06:00 08/20/17 06:00 08/20/17 06:00 08/19/17 21:00 Gen: NAD at rest Heart: RRR Lung: decreased breath sounds at the bases Abd: soft, nontender Ext: no edema CBC, BMP 08/20/17 06:00 08/20/17 06:00 Active Medications Acetaminophen (Tylenol -) 650 mg PO Q4H PRN PRN Reason: FEVER OR PAIN Last Admin: 08/20/17 06:21 Dose: 650 mg Amlodipine Besylate (Norvasc -) 10 mg PO DAILY [facility] Last Admin: 08/20/17 09:38 Dose: 10 mg Cholecalciferol (Vitamin D3 -) 2,000 unit PO DAILY [facility] Last Admin: 08/20/17 09:38 Dose: 2,000 unit Clonazepam (Klonopin -) 0.25 mg PO TID [facility] Last Admin: 08/20/17 06:20 Dose: 0.25 mg Docusate Sodium (Colace -) 100 mg PO BID [facility] Last Admin: 08/20/17 09:38 Dose: 100 mg Enoxaparin Sodium (Lovenox -) 80 mg SQ DAILY [facility] Last Admin: 08/19/17 18:36 Dose: 80 mg Fentanyl (Duragesic 12mcg Patch -) 1 patch TD Q3D [facility] Last Admin: 08/17/17 13:03 Dose: 1 patch Hydroxyurea (Hydrea -) 500 mg PO DAILY [facility] Last Admin: 08/20/17 09:38 Dose: 500 mg Lactobacillus Acidophilus (Bacid -) 1 tab PO DAILY [facility] Last Admin: 08/20/17 09:38 Dose: 1 tab Lidocaine (Lidoderm Patch -) 1 patch TP DAILY [facility] Last Admin: 08/20/17 09:39 Dose: 1 patch Miscellaneous (Duragesic Patch Waste) 1 each TD PRN PRN PRN Reason: PAIN Miscellaneous (Lidoderm Patch Removal) 1 each MC DAILY@2200 [facility] Last Admin: 08/19/17 21:34 Dose: 1 each Polyethylene Glycol (Miralax (For Daily Use) -) 17 gm PO DAILY PRN PRN Reason: CONSTIPATION Ranitidine HCl (Zantac -) 150 mg PO DAILY [facility] Last Admin: 08/20/17 09:38 Dose: 150 mg Senna (Senna -) 2 tab PO HS [facility] Last Admin: 08/19/17 21:33 Dose: 2 tab Sotalol HCl (Betapace -) 120 mg PO BID [facility] Last Admin: 08/20/17 09:38 Dose: 120 mg A/P Intractable Back Pain T12 Compression Fracture MALT Lymphoma Paroxysmal Atrial Fibrillation Portal Vein/SMV Thrombosis Essential Thrombocytosis/Myelofibrosis - pain control - kyphoplasty being considered - rehab/PT - continue anticoagulation - monitor H/H - repeat UA, UCx
[2017-08-20] MEDS: fentaNYL 12mcg/hr PATCH.TD72 TD SCH (12:51)
--- NOTE | 2017-08-20 16:28 | PN ---
Teaching Attending Note Name of Resident: Milton Vickers ATTENDING PHYSICIAN STATEMENT I saw and evaluated the patient. I reviewed the resident's note and discussed the case with the resident. I agree with the resident's findings and plan as documented. SUBJECTIVE:states pain has improved overall but continues to have difficulty moving due to the pain. denies CP, SOB, fever, chills, dysuria, urinary frequency, N/V/C/D OBJECTIVE: Last Vital Signs Temp Pulse Resp BP Pulse Ox 97.2 F L 52 L 20 129/52 98 08/20/17 15:10 08/20/17 15:10 08/20/17 15:10 08/20/17 15:10 08/20/17 09:00 General NAD CV S1 S2 RRR no murmur/rub/gallop Lungs CTA B/L no wheezing/rales/rhonchi Abdomen soft NT/ND ASSESSMENT AND PLAN: 86 yo F with PMH HTN, MALT lymphoma, PAF, Tucker's thyroiditis, essential thrombocytosis with myelofibrosis, recent portal vein/SMV thrombosis, recent T12 compression fracture, GERD who presented to the ER with back pain. 1. Back pain secondary to T12 compression fracture with conus medullaris compression- s/p T12 facet block on 08/15 with only modest improvement. was poor surgical candidate and opted for medical management with TLSO brace, however not much improvement with nerve block. pt and family now agreeable to kyphoplasty. 2. +MSSA UCx- pt is asymptomatic. received ceftriaxone x1 yesterday. will hold abx at this time as asymptomatic. agree with ID. will change logan catheter and repeat UA. will initiate abx if + 3. constipation- resolved. cont stool softeners prn 4. HTN- controlled. cont norvasc. cont to hold lasix 5. PAF- sinus rhythm. on sotalol, full dose lovenox 6. Essential thrombocytosis with myelofibrosis, anemia- transfused 1 unit PRBC this admission. Hgb stable this admission. goal Hgb >8. on hydroxyurea, procrit 7. Portal vein/SMV thrombosis- failed coumadin. on full dose lovenox 8. MALT lymphoma 9. History of Tucker's thyroiditis 10. GERD- Continue Zantac 11. DVT ppx- full dose daily lovenox 12. d/c planning to [facility]. pt can opt to go for kyphoplasty as outpatient. family requesting surgery at [facility], no beds available for transfer, and can be done as outpatient.
--- NOTE | 2017-08-20 16:50 | PN ---
Physical Exam: SUBJECTIVE: Patient seen and examined at bedside. pain is better over night, was able to walk to the door with the PT. she feels pressure due to catheter, she reports some urine leaking on her diaper. She denies fever, chills, N/V, tingling numbness in any ext. OBJECTIVE: Vital Signs Period Temp Pulse Resp BP Sys/Conde Pulse Ox Last 24 Hr 97.2 F-98.6 F 51-58 18-20 115-149/50-58 95-98 GENERAL: The patient is awake, alert, and fully oriented, in mild distress. HEAD: Normal with no signs of trauma. EYES: sclera anicteric, conjunctiva pallor . ENT: moist mucous membranes. LUNGS: Breath sounds equal, clear to auscultation bilaterally, no wheezes, no crackles, no accessory muscle use. HEART: Regular rate and rhythm, S1, S2 without murmur, rub or gallop. ABDOMEN: Soft, nontender, distended, normoactive bowel sounds, no guarding, no rebound, logan in place. EXTREMITIES: 2+ pulses, warm, well-perfused, no edema. NEUROLOGICAL: Good mentation, strength 5/5 in all ext, sensation intact, hyporeflexia in lower ext . PSYCH: Normal mood, normal affect. SKIN: Warm, dry, no rashes or lesions noted Laboratory Results - last 24 hr 08/20/17 08/20/17 08/20/17 06:00 06:00 08:33 WBC 8.1 RBC 3.51 L Hgb 9.1 L D Hct 28.1 L MCV 79.9 L MCH 26.0 MCHC 32.5 RDW 17.0 H Plt Count 449 H MPV 7.6 D PT with INR 12.50 H INR 1.11 PTT (Actin FS) 40.0 H Sodium 137 Potassium 5.1 Chloride 103 Carbon Dioxide 27 Anion Gap 7 L BUN 32 H Creatinine 0.7 Random Glucose 82 Calcium 8.6 08/20/17 11:15 WBC RBC Hgb Hct MCV MCH MCHC RDW Plt Count MPV PT with INR INR PTT (Actin FS) 25.0 L D Sodium Potassium Chloride Carbon Dioxide Anion Gap BUN Creatinine Random Glucose Calcium Active Medications Generic Name Dose Route Start Last Admin Trade Name Freq PRN Reason Stop Dose Admin Acetaminophen 650 mg 08/11/17 19:05 08/20/17 13:42 Tylenol - PO 650 mg Q4H PRN Administration FEVER OR PAIN Amlodipine Besylate 10 mg 08/12/17 10:00 08/20/17 09:38 Norvasc - PO 10 mg DAILY MARGARITA Administration Cholecalciferol 2,000 unit 08/12/17 10:00 08/20/17 09:38 Vitamin D3 - PO 2,000 unit DAILY MARGARITA Administration Clonazepam 0.25 mg 08/11/17 22:00 08/20/17 13:39 Klonopin - PO 0.25 mg TID MARGARITA Administration Docusate Sodium 100 mg 08/18/17 22:00 08/20/17 09:38 Colace - PO 100 mg BID MARGARITA Administration Enoxaparin Sodium 80 mg 08/19/17 18:00 08/19/17 18:36 Lovenox - SQ 80 mg DAILY MARGARITA Administration Fentanyl 1 patch 08/14/17 12:00 08/20/17 12:51 Duragesic 12mcg Patch - TD 1 patch Q3D MARGARITA Administration Hydroxyurea 500 mg 08/12/17 10:00 08/20/17 09:38 Hydrea - PO 500 mg DAILY MARGARITA Administration Lactobacillus Acidophilus 1 tab 08/12/17 10:00 08/20/17 09:38 Bacid - PO 1 tab DAILY MARGARITA Administration Lidocaine 1 patch 08/16/17 11:15 08/20/17 09:39 Lidoderm Patch - TP 1 patch DAILY MARGARITA Administration Miscellaneous 1 each 08/14/17 11:56 Duragesic Patch Waste TD PRN PRN PAIN Miscellaneous 1 each 08/16/17 22:00 08/19/17 21:34 Lidoderm Patch Removal MC 1 each DAILY@2200 MARGARITA Administration Polyethylene Glycol 17 gm 08/18/17 14:51 Miralax (For Daily Use) - PO DAILY PRN CONSTIPATION Ranitidine HCl 150 mg 08/12/17 10:00 08/20/17 09:38 Zantac - PO 150 mg DAILY MARGARITA Administration Senna 2 tab 08/18/17 22:00 08/19/17 21:33 Senna - PO 2 tab HS MARGARITA Administration Sotalol HCl 120 mg 08/11/17 22:00 08/20/17 09:38 Betapace - PO 120 mg BID MARGARITA Administration CBC, BMP 08/20/17 06:00 08/20/17 06:00 08/16/17 22:10 Urine - Urine - Catheterized Urine Culture - Preliminary Staphylococcus Aureus 08/13/17 15:15 Blood - Peripheral Venous Blood Culture - Final NO GROWTH AFTER 5 DAYS INCUBATION 08/13/17 15:15 Blood - Peripheral Venous Blood Culture - Final NO GROWTH AFTER 5 DAYS INCUBATION ASSESSMENT/PLAN: 86yo F hx HTN, lymphoma, al's, GERD, thrombocytopenia, portal vein thrombosis presented to the ED with 5 days of worsening Lower back pain. Pt had a T12 compression fracture 4 months ago, was in rehab for 4 months. Today presented with sever back pain was found to have urinary retention and compression fracture and was admitted for further evaluation. # cord compression at T12 due to burst compression fracture * CT scan reviewed shows 50 % effacement of spinal canal at T12 * MRI lumbar spine , pt was not able to sit settled in the MRI X3 , * pain killer with Morphine 2 mg IVPUSH Q 4hr, Tylenol 650 PO Q6 hr * S/p T12 facet block on 08/15 * Neurosurgery consultation , , conservative treatment no surgery for now. * Hematology,Pulmonary, cardiology on board * fall precautions * Plan to proceed with conservative treatment , pain management , PT, epidural steroid and kyphoplasty consider she is at high risk for surgery. * Blood Cx no growth, Urine Cx Staph aureus . * pending transfer to [facility] for [facility] Kyphoplasty * Continue Lidoderm patch, Fentanyl patch * Continue physical therapy - walked 20 feet with rolling walker today and reported pain #Urinary retention 2/2 cord compression at T12, with new onset UTI * She feels the urge but not able to empty her bladder * Bladder scan >342 cc at admission * maintain Logan * U cx Staph aureus * Consider UA, * consider Start Ceftriaxone 1 gm daily # Constipation 2/2 meds vs immobile, resolved * Continue Miralax 17 po daily and Colace 100 BID * Continue Senna 100 BID, * Colace 2 tab HS * # Hyponatremia, likley 2/2 low oral intake , resolved * Repeat CMP in AM * advance her diet to low sodium diet due to HTN # HTN * normotensive * Hold lasix * continue Amlodipine 10 mg PO daily, * # Lymphoma , Malt * Hematology on the board * can follow as out patient * continue home meds #Paroxysmal afib * remains in sinus tach * c/w sotalol 120 po daily ; * continue Lovenox 80 mg daily * consider to hold if surgery considered # 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 * S/p transfuse 1 unit PRBC. goal Hgb >8. H/H 8.05/30 today * cont hydroxyurea. * continue procrit # Portal vein/SMV thrombosis * on full dose lovenox 80 daily * Failed coumadin treatment #Anxiety * c/w klonopin 0.25 mg po bid prn for anxiety # H/O Al Thyroiditis * F/U as out patient # GERD, * Continue Zantac # FEN * F :on no fluids * E: Monitor * N: low sodium diet # Proph * DVT: SCDs, lovenox 80 , * GI : no need for now * PT eval # dispo * Admit to med -surg * hem and cardio on board for risk stratification , high risk for surgery, conservative management for now * S/p epidural steroid injection * She will be placed on transfer list to [facility] floor when bed available. Visit type - Emergency Visit Emergency Visit: Yes ED Registration Date: 08/11/17 Care time: The patient presented to the Emergency Department on the above date and was hospitalized for further evaluation of their emergent condition. - New Patient This patient is new to me today: No - Critical Care Critical Care patient: No
--- NOTE | 2017-08-20 16:59 | CONS ---
INFECTIOUS DISEASE CONSULTATION DATE OF CONSULTATION: DATE OF DICTATION: 08/20/2017 HISTORY OF PRESENT ILLNESS: An 86-year-old female evaluated for positive urine culture. The patient was admitted to the hospital on August 11, 2017, with worsening back pain. She had been diagnosed with a T12 vertebral body compression fracture which became a burst fracture. Her hospital course was complicated by acute urinary retention requiring placement of [facility] catheter. Urine culture sent from the [facility] is now growing Staphylococcus aureus. The patient had episode of acute urinary retention. She denied any recent dysuria or hematuria. She has been afebrile with a normal white blood cell count. PAST MEDICAL HISTORY: Positive for MALT lymphoma, hypertension, atrial fibrillation, Tucker thyroiditis, gastroesophageal reflux. PAST SURGICAL HISTORY: Status post mitral valve replacement, appendectomy. ALLERGIES: ASPIRIN and PROPOXYPHENE. MEDICATIONS: Include Norvasc, Klonopin, Zantac, Procrit, Hydrea, Lasix, Betapace. SOCIAL HISTORY: Lives at home with family members. SYSTEMS REVIEW: Neurologic: No loss of consciousness, seizure activity, focal weakness. Cardiac: Negative chest pain or palpitations. Positive mitral valve replacement. Respiratory: Negative cough or sputum production. Gastrointestinal: Negative vomiting or diarrhea. Genitourinary: As per HPI. LABORATORY DATA: White count 8.1, hematocrit 28.1, platelet count 449. BUN 32, creatinine 0.7. Urinalysis: One white cell. Urine culture: Staphylococcus aureus. Blood cultures negative. PHYSICAL EXAMINATION: General: She is awake and alert. She is in moderate distress secondary to back pain. Vital Signs: Temperature 97.7; blood pressure 149/58; pulse 58, regular; respirations 20 per minute. HEENT: Sclerae anicteric. Heart: Sounds S1, S2. Lungs: Clear. Abdomen: Soft. No suprapubic tenderness. Extremities: Negative for edema. Genitourinary: Baldwin catheter is in place. Urine is not grossly purulent. IMPRESSION: 1. Asymptomatic bacteriuria. 2. Burst fracture, T12. 3. Intractable back pain. 4. History of mucosa-associated lymphoid tissue (MALT) lymphoma. 5. History of thrombocytosis. Urine culture result likely represents colonization. We will change Balwdin catheter and repeat urinalysis and urine culture. No antibiotic treatment advised at this time. No evidence for systemic infection. Thank you for the kind referral. МАРИЯ HIGGINS M.D. [id number]
[2017-08-20 17:16] LABS: URINE APPEARANCE TURBID; URINE BILIRUBIN NEGATIVE (NEGATIVE); URINE BLOOD 3+ (NEGATIVE); URINE COLOR YELLOW; URINE GLUCOSE (UA) NEGATIVE (NEGATIVE); URINE KETONE NEGATIVE (NEGATIVE); URINE NITRITE NEGATIVE (NEGATIVE); URINE UROBILINOGEN NEGATIVE mg/dL (0.2-1.0)
[2017-08-20 17:19] LABS: URINE PROTEIN 1+ (NEGATIVE)
[2017-08-20 17:20] LABS: URINE RBC 23 /hpf (0-3); URINE WBC 140 /hpf (3-5)
[2017-08-20 17:21] LABS: URINE MUCUS RARE
--- NOTE | 2017-08-20 17:42 | PN ---
Progress Note (short form) - Note Progress Note: patient seen and examined. pain the same Chart reviewed. All consult notes noted. O/E: General: appears with some discomfort Head: NCAT HEART: S1S2, RRR LUNGS: Clear ABDOMEN: Soft, mildly distended, logan catheter in place EXTREMITIES: No edema Last Vital Signs Temp Pulse Resp BP Pulse Ox 97.2 F L 52 L 20 129/52 98 08/20/17 15:10 08/20/17 15:10 08/20/17 15:10 08/20/17 15:10 08/20/17 09:00 CBC, BMP 08/20/17 06:00 08/20/17 06:00 Current Medications Generic Name Dose Route Start Last Admin Trade Name Freq PRN Reason Stop Dose Admin Acetaminophen 650 mg 08/11/17 19:05 08/20/17 13:42 Tylenol - PO 650 mg Q4H PRN Administration FEVER OR PAIN Amlodipine Besylate 10 mg 08/12/17 10:00 08/20/17 09:38 Norvasc - PO 10 mg DAILY MARGARITA Administration Cholecalciferol 2,000 unit 08/12/17 10:00 08/20/17 09:38 Vitamin D3 - PO 2,000 unit DAILY MARGARITA Administration Clonazepam 0.25 mg 08/11/17 22:00 08/20/17 13:39 Klonopin - PO 0.25 mg TID MARGARITA Administration Docusate Sodium 100 mg 08/18/17 22:00 08/20/17 09:38 Colace - PO 100 mg BID MARGARITA Administration Enoxaparin Sodium 80 mg 08/19/17 18:00 08/19/17 18:36 Lovenox - SQ 80 mg DAILY MARGARITA Administration Enoxaparin Sodium 80 mg 08/20/17 17:45 Lovenox - SQ DAILY MARGARITA Fentanyl 1 patch 08/14/17 12:00 08/20/17 12:51 Duragesic 12mcg Patch - TD 1 patch Q3D MARGARITA Administration Hydroxyurea 500 mg 08/12/17 10:00 08/20/17 09:38 Hydrea - PO 500 mg DAILY MARGARITA Administration Lactobacillus Acidophilus 1 tab 08/12/17 10:00 08/20/17 09:38 Bacid - PO 1 tab DAILY MARGARITA Administration Lidocaine 1 patch 08/16/17 11:15 08/20/17 09:39 Lidoderm Patch - TP 1 patch DAILY MARGARITA Administration Miscellaneous 1 each 08/14/17 11:56 Duragesic Patch Waste TD PRN PRN PAIN Miscellaneous 1 each 08/16/17 22:00 08/19/17 21:34 Lidoderm Patch Removal MC 1 each DAILY@2200 MARGARITA Administration Polyethylene Glycol 17 gm 08/18/17 14:51 Miralax (For Daily Use) - PO DAILY PRN CONSTIPATION Ranitidine HCl 150 mg 08/12/17 10:00 08/20/17 09:38 Zantac - PO 150 mg DAILY MARGARITA Administration Senna 2 tab 08/18/17 22:00 08/19/17 21:33 Senna - PO 2 tab HS MARGARITA Administration Sotalol HCl 120 mg 08/11/17 22:00 08/20/17 09:38 Betapace - PO 120 mg BID MARGARITA Administration Assessment/Plan: 86 y/o patient with HTN, MVP, afib, essential thrombocytosis/myelofibrosis, transfusion dependency, ironoverload, abnormal liver MRI ? lesions vs signal abnormality, recent portal/SMV thrombosis, MALT lymphoma s/p RT,s/p recent fall 05/20 with vertebral compression fx and preferred conservative management atthat time Now with Burst fracture. status post t12 facet blocks on 08/15 Will need a brace/physical therapy/rehab OP kyphoplasty as per discussion. c.w pain control c/w hydrea Please resume lovenox as she is not going for the procedure.
[2017-08-20] MEDS: ENOXAPARIN NA (PORCINE) 80 MG/0.8 ML DISP.SYRIN SQ SCH (17:58)
[2017-08-20 20:40] LABS: URINE LEUK ESTERASE 3+ (NEGATIVE)
[2017-08-20] MEDS: SENNOSIDES 8.6MG TABLET (FP) PO SCH (21:56)
[2017-08-20] MEDS: LIDOCAINE PATCH REMOVAL MC SCH (22:15)
[2017-08-21] MEDS: clonazePAM 0.5 MG TABLET PO SCH ×3 (06:07→21:25)
[2017-08-21] MEDS: ACETAMINOPHEN 325 MG TABLET (FP) PO PRN ×2 (06:09→15:49)
--- NOTE | 2017-08-21 06:47 | PN ---
Physical Exam: SUBJECTIVE: Patient seen and examined at bedside. pain is better over night, was able to walk to the door with the PT. she feels pressure due to catheter, she reports some urine leaking on her diaper. She denies fever, chills, N/V, tingling numbness in any ext. OBJECTIVE: Vital Signs Period Temp Pulse Resp BP Sys/Conde Pulse Ox Last 24 Hr 97.2 F-98.2 F 50-55 20-20 129-150/43-54 96-98 GENERAL: The patient is awake, alert, and fully oriented, in mild distress. HEAD: Normal with no signs of trauma. EYES: sclera anicteric, conjunctiva pallor . ENT: moist mucous membranes. LUNGS: Breath sounds equal, clear to auscultation bilaterally, no wheezes, no crackles, no accessory muscle use. HEART: Regular rate and rhythm, S1, S2 without murmur, rub or gallop. ABDOMEN: Soft, nontender, distended, normoactive bowel sounds, no guarding, no rebound, logan in place. EXTREMITIES: 2+ pulses, warm, well-perfused, no edema. NEUROLOGICAL: Good mentation, strength 5/5 in all ext, sensation intact, hyporeflexia in lower ext . PSYCH: Normal mood, normal affect. SKIN: Warm, dry, no rashes or lesions noted Laboratory Results - last 24 hr 08/20/17 08/20/17 08/20/17 06:00 06:00 08:33 WBC 8.1 RBC 3.51 L Hgb 9.1 L D Hct 28.1 L MCV 79.9 L MCH 26.0 MCHC 32.5 RDW 17.0 H Plt Count 449 H MPV 7.6 D PT with INR 12.50 H INR 1.11 PTT (Actin FS) 40.0 H Sodium 137 Potassium 5.1 Chloride 103 Carbon Dioxide 27 Anion Gap 7 L BUN 32 H Creatinine 0.7 Random Glucose 82 Calcium 8.6 Urine Color Urine Appearance Urine pH Ur Specific Terrell Urine Protein Urine Glucose (UA) Urine Ketones Urine Blood Urine Nitrite Urine Bilirubin Urine Urobilinogen Ur Leukocyte Esterase Urine RBC Urine WBC Ur Epithelial Cells Urine Mucus Urine Other 08/20/17 08/20/17 11:15 16:45 WBC RBC Hgb Hct MCV MCH MCHC RDW Plt Count MPV PT with INR INR PTT (Actin FS) 25.0 L D Sodium Potassium Chloride Carbon Dioxide Anion Gap BUN Creatinine Random Glucose Calcium Urine Color Yellow Urine Appearance Turbid Urine pH 5.0 Ur Specific Terrell <= 1.005 Urine Protein 1+ H Urine Glucose (UA) Negative Urine Ketones Negative Urine Blood 3+ H Urine Nitrite Negative Urine Bilirubin Negative Urine Urobilinogen Negative Ur Leukocyte Esterase 3+ H Urine RBC 23 Urine WBC 140 Ur Epithelial Cells Rare Urine Mucus Rare Urine Other Active Medications Generic Name Dose Route Start Last Admin Trade Name Freq PRN Reason Stop Dose Admin Acetaminophen 650 mg 08/11/17 19:05 08/21/17 06:09 Tylenol - PO 650 mg Q4H PRN Administration FEVER OR PAIN Amlodipine Besylate 10 mg 08/12/17 10:00 08/20/17 09:38 Norvasc - PO 10 mg DAILY MARGARITA Administration Cholecalciferol 2,000 unit 08/12/17 10:00 08/20/17 09:38 Vitamin D3 - PO 2,000 unit DAILY MARGARITA Administration Clonazepam 0.25 mg 08/11/17 22:00 08/21/17 06:07 Klonopin - PO 0.25 mg TID MARGARITA Administration Docusate Sodium 100 mg 08/18/17 22:00 08/20/17 21:55 Colace - PO 100 mg BID MARGARITA Administration Enoxaparin Sodium 80 mg 08/20/17 17:45 08/20/17 17:58 Lovenox - SQ 80 mg DAILY MARGARITA Administration Fentanyl 1 patch 08/14/17 12:00 08/20/17 12:51 Duragesic 12mcg Patch - TD 1 patch Q3D MARGARITA Administration Hydroxyurea 500 mg 08/12/17 10:00 08/20/17 09:38 Hydrea - PO 500 mg DAILY MARGARITA Administration Lactobacillus Acidophilus 1 tab 08/12/17 10:00 08/20/17 09:38 Bacid - PO 1 tab DAILY MARGARITA Administration Lidocaine 1 patch 08/16/17 11:15 08/20/17 09:39 Lidoderm Patch - TP 1 patch DAILY MARGARITA Administration Miscellaneous 1 each 08/14/17 11:56 Duragesic Patch Waste TD PRN PRN PAIN Miscellaneous 1 each 08/16/17 22:00 08/20/17 22:15 Lidoderm Patch Removal MC 1 each DAILY@2200 MARGARITA Administration Polyethylene Glycol 17 gm 08/18/17 14:51 Miralax (For Daily Use) - PO DAILY PRN CONSTIPATION Ranitidine HCl 150 mg 08/12/17 10:00 08/20/17 09:38 Zantac - PO 150 mg DAILY MARGARITA Administration Senna 2 tab 08/18/17 22:00 08/20/17 21:56 Senna - PO Not Given HS MARGARITA Sotalol HCl 120 mg 08/11/17 22:00 08/20/17 21:54 Betapace - PO 120 mg BID MARGARITA Administration 08/16/17 22:10 Urine - Urine - Catheterized Urine Culture - Preliminary Staphylococcus Aureus 08/13/17 15:15 Blood - Peripheral Venous Blood Culture - Final NO GROWTH AFTER 5 DAYS INCUBATION 08/13/17 15:15 Blood - Peripheral Venous Blood Culture - Final NO GROWTH AFTER 5 DAYS INCUBATION ASSESSMENT/PLAN: 86yo F hx HTN, lymphoma, al's, GERD, thrombocytopenia, portal vein thrombosis presented to the ED with 5 days of worsening Lower back pain. Pt had a T12 compression fracture 4 months ago, was in rehab for 4 months. Today presented with sever back pain was found to have urinary retention and compression fracture and was admitted for further evaluation. # cord compression at T12 due to burst compression fracture * CT scan reviewed shows 50 % effacement of spinal canal at T12 * MRI lumbar spine , pt was not able to sit settled in the MRI X3 , * pain killer with Morphine 2 mg IVPUSH Q 4hr PRN, Tylenol 650 PO Q6 hr, phentanyl patch, lidodermal patch * S/p T12 facet block on 08/15 * Neurosurgery consultation , , conservative treatment no surgery for now. * Hematology,Pulmonary, cardiology on board * fall precautions * Plan to proceed with conservative treatment , pain management , PT, epidural steroid and kyphoplasty consider she is at high risk for surgery. * Blood Cx no growth, Urine Cx Staph aureus start Ceftriaxone 1 gm IVBP daily . * pending transfer to [facility] * Continue Lidoderm patch, Fentanyl patch * Continue physical therapy - walked 20 feet with rolling walker today and reported pain #Urinary retention 2/2 cord compression at T12, with new onset UTI * She feels the urge but not able to empty her bladder * Bladder scan >342 cc at admission * Logan was replaced, maintain * U cx Staph aureus , * Consider UA, * continue Start Ceftriaxone 1 gm daily # Constipation 2/2 meds vs immobile, improved * Continue Miralax 17 po daily and Colace 100 BID * Continue Senna 100 BID, * Colace 2 tab HS * Enema today # Hyponatremia, likley 2/2 low oral intake , resolved * Repeat CMP in AM * advance her diet to low sodium diet due to HTN # HTN * normotensive * Hold lasix * continue Amlodipine 10 mg PO daily, * # Lymphoma , Malt * Hematology on the board * can follow as out patient * continue home meds #Paroxysmal afib * remains in sinus tach * c/w sotalol 120 po daily ; * continue Lovenox 80 mg daily * consider to hold if procedure considered # 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 * S/p transfuse 1 unit PRBC. goal Hgb >8. * cont hydroxyurea. * continue procrit # Portal vein/SMV thrombosis * on full dose lovenox 80 daily * Failed Coumadin treatment #Anxiety * c/w klonopin 0.25 mg po bid prn for anxiety # H/O Al Thyroiditis * F/U as out patient # GERD, * Continue Zantac # FEN * F :on no fluids * E: Monitor * N: low sodium diet # Proph * DVT: SCDs, lovenox 80 , * GI : no need for now * PT eval , # dispo * Admit to med -surg * hem and cardio on board for risk stratification , high risk for surgery, conservative management for now * S/p epidural steroid injection * She will be placed on transfer list to [facility] when bed available. Visit type - Emergency Visit Emergency Visit: Yes ED Registration Date: 08/11/17 Care time: The patient presented to the Emergency Department on the above date and was hospitalized for further evaluation of their emergent condition. - New Patient This patient is new to me today: No - Critical Care Critical Care patient: No - Discharge Referral Referred to [facility] Med P.C.: No
[2017-08-21 07:32] LABS: MCH 25.8 pg (25.7-33.7); MCHC 32.4 g/dl (32.0-36.0); MEAN CELL VOLUME 79.6 fl (80-96); MEAN PLT VOLUME 7.6 fl (7.5-11.1); PLATELET COUNT 455 K/MM3 (134-434); WHITE BLOOD COUNT 7.6 K/mm3 (4.0-10.0)
[2017-08-21] MEDS: CHOLECALCIFEROL (VITAMIN D3) 1,000 UNIT TABLET (FP) PO SCH (09:37)
[2017-08-21] MEDS: LACTOBACILLUS ACIDOPHILUS 1 EACH TAB (FP) PO SCH (09:37)
[2017-08-21] MEDS: RANITIDINE HCL 150 MG TABLET (FP) PO SCH (09:37)
[2017-08-21] MEDS: DOCUSATE SODIUM 100 MG CAPSULE (FP) PO SCH ×2 (09:37→21:25)
[2017-08-21] MEDS: ENOXAPARIN NA (PORCINE) 80 MG/0.8 ML DISP.SYRIN SQ SCH (09:37)
[2017-08-21] MEDS: amLODIPine BESYLATE 10 MG TABLET (FP) PO SCH (09:37)
[2017-08-21] MEDS: HYDROXYUREA 500 MG CAPSULE PO SCH (09:37)
[2017-08-21] MEDS: LIDOCAINE 5% TOPICAL PATCH TP SCH (09:38)
[2017-08-21] MEDS: SOTALOL HCL 80 MG TABLET (FP) PO SCH ×2 (09:38→21:25)
--- NOTE | 2017-08-21 11:15 | CON.GU ---
Consult Consult Specialty:: Referred by:: medicine Reason for Consultation:: urinary retention, UTI - History of Present Illness Chief Complaint: urinary retention, UTI History of Present Illness: 86 year old female with h/o urinary frequency is admitted with a T12 fracture and acute urinary retention. Logan was placed with cloudy urine return. Urine culture is positive. Patient denies previous history of urinary retention - History Source History Provided By: Patient, Medical Record Limitations to Obtaining History: No Limitations - Past Medical History Cardio/Vascular: Yes: AFIB, HTN, Other (Mitral Valve Prolapse) Gastrointestinal: Yes: GERD Renal/: Yes: Neurogenic Bladder, UTI Psych: Yes: Anxiety ENT: Yes: Allergic Rhinitis, Sinusitis Endocrine: Yes: Other (Hashimotos thyroiditis) - Past Surgical History Past Surgical History: Yes: Appendectomy, Cataract Removal (bilateral), Oopherectomy (bilateral), Tonsillectomy - Alcohol/Substance Use Hx Alcohol Use: No - Smoking History Smoking history: Former smoker Have you smoked in the past 12 months: No Aproximately how many cigarettes per day: 2 If you are a former smoker, when did you quit?: 60 years ago - Social History Usual Living Arrangement: Alone (, in [place]) ADL: Independent 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 History of Recent Travel: No Home Medications - Allergies Allergies/Adverse Reactions: Allergies Allergy/AdvReac Type Severity Reaction Status Date / Time propoxyphene napsylate Allergy Severe Swelling Verified 08/11/17 08:32 [From Darvocet-N 100] aspirin Allergy Difficulty Verified 08/11/17 08:32 Breathing hydromorphone HCl Allergy Verified 08/11/17 08:32 [From Dilaudid] - Home Medications Home Medications: Ambulatory Orders Amlodipine Besylate [Norvasc -] 10 mg PO DAILY #0 tablet 05/13/13 Clonazepam [Klonopin] 0.25 mg PO TID 04/21/14 Ranitidine [Zantac -] 150 mg PO DAILY 06/10/15 Cholecalciferol (Vitamin D3) [Vitamin D3] 2,000 unit PO DAILY 03/22/16 Epoetin Chris [Procrit] 0 unit IJ ASDIR 09/11/16 Acetaminophen [Tylenol .Regular Strength -] 650 mg PO Q4H PRN #0 tablet Hydroxyurea [Hydrea 500Mg Capsule -] 500 mg PO DAILY #30 cap 06/09/17 Furosemide [Lasix -] 40 mg PO BID@0600,1400 tablet 06/10/17 Enoxaparin [Lovenox -] 80 mg SQ BID 08/11/17 Lactobacillus Acidophilus [Probiotic] 1 each PO DAILY 08/11/17 Lidocaine 5% Patch 1 patch TP DAILY 08/11/17 Propylene Glycol/Peg 400 [Systane Ultra 0.4-0.3% Eye Drp] 1 drop OP DAILY Sotalol HCl [Betapace -] 120 mg PO BID 08/11/17 Family Disease History - Family Disease History Family Disease History: Other: Father (CVA) Review of Systems - Review of Systems Genitourinary: reports: Discharge, Dysuria, Frequency, Incontinence. denies: Flank Pain, Hematuria Physical Exam- Vital Signs: Vital Signs Temperature 97.8 F 08/21/17 06:06 Pulse Rate 52 L 08/21/17 06:06 Respiratory Rate 20 08/21/17 06:06 Blood Pressure 150/51 08/21/17 06:06 O2 Sat by Pulse Oximetry (%) 96 08/20/17 21:00 Constitutional: Yes: Mild Distress, Thin Renal/: Yes: Logan Present. No: Bladder Distention, CVA Tenderness - Left, CVA Tenderness - Right, Hematuria, Incontinence Labs: CBC, BMP 08/21/17 06:00 08/20/17 06:00 Problem List - Problems (1) Neurogenic bladder Assessment/Plan: urinary retention likely secondary to lower motor neuron lesion. Treat her UTI , but she may need either indwelling logan or intermittent cath until this resolves Code(s): N31.9 - NEUROMUSCULAR DYSFUNCTION OF BLADDER, UNSPECIFIED (2) UTI (urinary tract infection) Assessment/Plan: continue antibiotics and repeat urine culture once treated Code(s): N39.0 - URINARY TRACT INFECTION, SITE NOT SPECIFIED
--- NOTE | 2017-08-21 12:06 | PN ---
Progress Note (short form) - Note Progress Note: PULMONARY NO OVERALL CHANGE IN EXAM OR PAIN STATUS S/P FACET BLOCK PERFORMED 08/15 NOW WITH GUY AND POSSIBLE UTI KYPHOPLASTY WILL NOT BE DONE DURING THIS ADMISSION CONTINUE CURRENT TREATMENT/PLAN PER PRIMARY TEAM Yan ROSS MD
--- NOTE | 2017-08-21 12:50 | PN ---
Teaching Attending Note Name of Resident: Milton Vickers ATTENDING PHYSICIAN STATEMENT I saw and evaluated the patient. I reviewed the resident's note and discussed the case with the resident. I agree with the resident's findings and plan as documented. SUBJECTIVE:continues to have back pain mostly on exertion. sensation of urinary dribbling around catheter. denies CP, SOB, fever, chills, N/V/ OBJECTIVE: Last Vital Signs Temp Pulse Resp BP Pulse Ox 97.8 F 52 L 20 150/51 96 08/21/17 06:06 08/21/17 06:06 08/21/17 06:06 08/21/17 06:06 08/20/17 21:00 General NAD Abdomen soft NT/ND ASSESSMENT AND PLAN: 86 yo F with PMH HTN, MALT lymphoma, PAF, Tucker's thyroiditis, essential thrombocytosis with myelofibrosis, recent portal vein/SMV thrombosis, recent T12 compression fracture, GERD who presented to the ER with back pain. 1. Back pain secondary to T12 compression fracture with conus medullaris compression- s/p T12 facet block on 08/15 with only modest improvement. was poor surgical candidate and opted for medical management with TLSO brace, however not much improvement with nerve block. pt and family now agreeable to kyphoplasty which will be pursued after [facility] as outpatient 2. +MSSA UCx- repeat UA is +. MSSA on this admission, has hx of ESBL. will d/w ID about appropriate abx selection at this time. logan was exchanged yesterday. 3. Neurogenic bladder- likely component from T12 fracture however may also be superimposed from UTI. evaluated by urology. logan exchanged yesterday. will maintain logan at this time. and can f/u as outpatient for further evaluation. 4. constipation- resolved. cont stool softeners prn 5. HTN- controlled. cont norvasc. cont to hold lasix 6. PAF- sinus rhythm. on sotalol, full dose lovenox 7. Essential thrombocytosis with myelofibrosis, anemia- transfused 1 unit PRBC this admission. Hgb stable this admission. goal Hgb >8. on hydroxyurea, procrit 8. Portal vein/SMV thrombosis- failed coumadin. on full dose lovenox 9. MALT lymphoma 10. History of Tucker's thyroiditis 11. GERD- Continue Zantac 12. DVT ppx- full dose daily lovenox 13. d/c planning to [facility]. pt can opt to go for kyphoplasty as outpatient.
--- NOTE | 2017-08-21 12:56 | PN ---
Progress Note (short form) - Note Progress Note: patient seen and examined. she is frustrated and is in pain... She doesn't like the catheter in. She did not want the pain meds to increase Chart reviewed. All consult notes noted. O/E: General: appears with some discomfort Head: NCAT HEART: S1S2, RRR LUNGS: Clear ABDOMEN: Soft, mildly distended, logan catheter in place EXTREMITIES: No edema Last Vital Signs Temp Pulse Resp BP Pulse Ox 97.8 F 52 L 20 150/51 96 08/21/17 06:06 08/21/17 06:06 08/21/17 06:06 08/21/17 06:06 08/20/17 21:00 CBC, BMP 08/21/17 06:00 08/20/17 06:00 Current Medications Generic Name Dose Route Start Last Admin Trade Name Freq PRN Reason Stop Dose Admin Acetaminophen 650 mg 08/11/17 19:05 08/21/17 06:09 Tylenol - PO 650 mg Q4H PRN Administration FEVER OR PAIN Amlodipine Besylate 10 mg 08/12/17 10:00 08/21/17 09:37 Norvasc - PO 10 mg DAILY MARGARITA Administration Cholecalciferol 2,000 unit 08/12/17 10:00 08/21/17 09:37 Vitamin D3 - PO 2,000 unit DAILY MARGARITA Administration Clonazepam 0.25 mg 08/11/17 22:00 08/21/17 06:07 Klonopin - PO 0.25 mg TID MARGARITA Administration Docusate Sodium 100 mg 08/18/17 22:00 08/21/17 09:37 Colace - PO 100 mg BID MARGARITA Administration Enoxaparin Sodium 80 mg 08/20/17 17:45 08/21/17 09:37 Lovenox - SQ 80 mg DAILY MARGARITA Administration Fentanyl 1 patch 08/14/17 12:00 08/20/17 12:51 Duragesic 12mcg Patch - TD 1 patch Q3D MARGARITA Administration Hydroxyurea 500 mg 08/12/17 10:00 08/21/17 09:37 Hydrea - PO 500 mg DAILY MARGARITA Administration Lactobacillus Acidophilus 1 tab 08/12/17 10:00 08/21/17 09:37 Bacid - PO 1 tab DAILY MARGARITA Administration Lidocaine 1 patch 08/16/17 11:15 08/21/17 09:38 Lidoderm Patch - TP 1 patch DAILY MARGARITA Administration Miscellaneous 1 each 08/14/17 11:56 Duragesic Patch Waste TD PRN PRN PAIN Miscellaneous 1 each 08/16/17 22:00 08/20/17 22:15 Lidoderm Patch Removal MC 1 each DAILY@2200 MARGARITA Administration Polyethylene Glycol 17 gm 08/18/17 14:51 Miralax (For Daily Use) - PO DAILY PRN CONSTIPATION Ranitidine HCl 150 mg 08/12/17 10:00 08/21/17 09:37 Zantac - PO 150 mg DAILY MARGARITA Administration Senna 2 tab 08/18/17 22:00 08/20/17 21:56 Senna - PO Not Given HS MARGARITA Sotalol HCl 120 mg 08/11/17 22:00 08/21/17 09:38 Betapace - PO 120 mg BID MARGARITA Administration Assessment/Plan: 86 y/o patient with HTN, MVP, afib, essential thrombocytosis/myelofibrosis, transfusion dependency, ironoverload, abnormal liver MRI ? lesions vs signal abnormality, recent portal/SMV thrombosis, MALT lymphoma s/p RT,s/p recent fall 05/20 with vertebral compression fx and preferred conservative management at that time. Now with Burst fracture. status post t12 facet blocks on 08/15 on PT. Brace at bedside, ?PT to place it OP kyphoplasty as per discussion. c.w pain control c/w hydrea c/w lovenox as she is not going for the procedure. rec noted ID rec noted, repeat urine culture pending. recommended to be on rocephin. communicated with NABILA
--- NOTE | 2017-08-21 13:10 | DS ---
Physical Exam: SUBJECTIVE: Patient seen and examined at bedside. She is doing well. Back pain is well controlled with Tylenol and patches. had BM. she is stable to go to [facility]. OBJECTIVE: Vital Signs Period Temp Pulse Resp BP Sys/Conde Pulse Ox Last 24 Hr 97.2 F-98.3 F 50-55 20-20 129-159/43-63 96-98 PHYSICAL EXAM GENERAL: The patient is awake, alert, and fully oriented, in no acute distress. HEAD: Normal with no signs of trauma. EYES: sclera anicteric, conjunctiva clear. ENT: moist mucous membranes. LUNGS: Breath sounds equal, clear to auscultation bilaterally, no wheezes, no crackles, no accessory muscle use. HEART: Regular rate and rhythm, S1, S2 without murmur, rub or gallop. ABDOMEN: Soft, nontender, nondistended, normoactive bowel sounds, no guarding, no rebound, logan in place. EXTREMITIES: warm, well-perfused, no edema. sensation intact. NEUROLOGICAL: good mentation SKIN: Warm, dry, normal turgor, no rashes or lesions noted LABS Laboratory Results - last 24 hr 08/20/17 08/21/17 16:45 06:00 WBC 7.6 RBC 3.24 L Hgb 8.4 L Hct 25.8 L MCV 79.6 L MCH 25.8 MCHC 32.4 RDW 17.0 H Plt Count 455 H MPV 7.6 Urine Color Yellow Urine Appearance Turbid Urine pH 5.0 Ur Specific [place] <= 1.005 Urine Protein 1+ H Urine Glucose (UA) Negative Urine Ketones Negative Urine Blood 3+ H Urine Nitrite Negative Urine Bilirubin Negative Urine Urobilinogen Negative Ur Leukocyte Esterase 3+ H Urine RBC 23 Urine WBC 140 Ur Epithelial Cells Rare Urine Mucus Rare Urine Other HOSPITAL COURSE: Date of Admission:08/11/17 Date of Discharge: 08/22/17 Ms. Lai is an 86 yo F with PMH HTN, MALT lymphoma, PAF, Tucker's thyroiditis, essential thrombocytosis with myelofibrosis, recent portal vein/ SMV thrombosis, recent T12 compression fracture, GERD who presented to the ER with back pain. Her Back pain due to T12 compression fracture with conus medullaris compression - s/p T12 facet block on 08/15 with only modest improvement. was poor surgical candidate and opted for medical management with TLSO brace, however not much improvement with nerve block. pt and family now agreeable to kyphoplasty which will be pursued after [facility] as outpatient if they cont to desire was foind to have +MSSA UCx- UCx + GNR and staph. now on single strength bactrim for 3 days and will recheck her kidney function after that. she received one dose of vanco IV before Dc. once abx are completed should start bladder training trial. In term of Neurogenic bladder, likely component from T12 fracture however may also be superimposed from UTI. evaluated by urology. logan exchanged this admission. will maintain logan at this time. can initiate bladder training trials once abx are completed. In Term of constipation- resolved. cont stool softeners prn In term HTN- controlled. cont norvasc. cont low dose Lasix 20. In term of PAF- sinus rhythm. on sotalol, full dose lovenox In term of Essential thrombocytosis with myelofibrosis, anemia- transfused 1 unit PRBC this admission. Hgb stable this admission. goal Hgb >8. 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 on full dose lovenox In term of MALT lymphoma she can follow as out patient. She has a History of Tucker's thyroiditis In term of GERD- Continue Zantac In term of DVT ppx- full dose daily lovenox Patient is medically stable for discharge to [facility]. Minutes to complete discharge: 40 Discharge Summary Reason For Visit: URINARY RETENTION Current Active Problems Cauda equina syndrome (Acute) Compression fracture of lumbar vertebra (Acute) Ischemic colitis (Acute) Neurogenic bladder (Acute) Peritonitis (Acute) Supratherapeutic INR (Acute) UTI (urinary tract infection) (Acute) Anxiety (Chronic) GERD (gastroesophageal reflux disease) (Chronic) Tucker's thyroiditis (Chronic) History of Coumadin therapy (Chronic) Hydronephrosis (Chronic) Hypertension (Chronic) MALT lymphoma (Chronic) Myelodysplastic syndrome (Chronic) Myeloproliferative disease (Chronic) Condition: Stable - Instructions Diet, Activity, Other Instructions: You have admitted to the hospital due to burst fracture in your back, You have decide to proceed with conservative management, pain control , Physical therapy, epidural injection (injection of steroids in your back), you will need to use braces as physical therapy prescribed. Continue with pain patches for pain and can take Tylenol as needed for breakthrough pain. Please you can follow as out patient for Kyphoplasty (segment the vertebra) Please follow fall precautions Please avoid carrying any heavy subjects Maintain proper logan catheter care during this time. It can be seen if the logan can be removed when you are able to urinate on your own. You will need to take antibiotics called bactrim twice a day for 3 days per infectious disease doctor. Once you are completed with antibiotics you should start "clamping trials" of your logan catheter to see if you develop the urge to urinate in order for the logan to be removed. You will also need to check your kidney function in 3 days after taking antibiotics. For this you will need to get labs (a BMP lab panel) in 3 days. Follow up with your primary care doctor once you leave the nursing facility. Your CT scan also showed some nodules on your lungs. You may require repeat imaging to monitor the size of these nodules. please follow up with Dr. Kline , blood doctor within week Please follow with neurologist within 2 weeks Please follow up with Dr. Blas tomorrow as scheduled. Return to the emergency department if you have any new, worsening, or concerning symptoms. You will be discharged to rehab facility that will help strengthen your muscle and help you to return to your daily activity. Referrals: Abebe Noriega MD [Primary Care Provider] - 1 Week Shorty Mcgraw MD [Staff Physician] - Shorty Blas MD [Staff Physician] - 1 Week Raisa Rodriguez MD [Staff Physician] - 2 Weeks Disposition: RESIDENTIAL FACILITY - Home Medications Comprehensive Discharge Medication List: Ambulatory Orders Amlodipine Besylate [Norvasc -] 10 mg PO DAILY #0 tablet 05/13/13 Clonazepam [Klonopin] 0.25 mg PO TID 04/21/14 Ranitidine [Zantac -] 150 mg PO DAILY 06/10/15 Cholecalciferol (Vitamin D3) [Vitamin D3] 2,000 unit PO DAILY 03/22/16 Epoetin Chris [Procrit] 0 unit IJ ASDIR 09/11/16 Acetaminophen [Tylenol .Regular Strength -] 650 mg PO Q4H PRN #0 tablet Hydroxyurea [Hydrea 500Mg Capsule -] 500 mg PO DAILY #30 cap 06/09/17 Furosemide [Lasix -] 40 mg PO BID@0600,1400 tablet 06/10/17 Lactobacillus Acidophilus [Probiotic] 1 each PO DAILY 08/11/17 Lidocaine 5% Patch 1 patch TP DAILY 08/11/17 Propylene Glycol/Peg 400 [Systane Ultra 0.4-0.3% Eye Drp] 1 drop OP DAILY Sotalol HCl [Betapace -] 120 mg PO BID 08/11/17 Enoxaparin [Lovenox -] 80 mg SQ DAILY #0 syringe 08/21/17 Fentanyl Patch Waste [Duragesic Patch Waste] 1 each TD PRN PRN #0 each 08/21/17 Lidocaine 5% Patch [Lidoderm -] 1 patch TP DAILY patch 08/21/17 Polyethylene Glycol 3350 [Miralax 119 gm Btl -] 17 gm PO DAILY PRN #0 bottle Sennosides [Senna -] 2 tab PO HS tablet 08/21/17 This patient is new to me today: No Emergency Visit: Yes ED Registration Date: 08/11/17 Care time: The patient presented to the Emergency Department on the above date and was hospitalized for further evaluation of their emergent condition. Critical Care patient: No - Discharge Referral Referred to [facility] Med P.C.: No
--- NOTE | 2017-08-21 14:56 | PN ---
Progress Note (short form) - Note Progress Note: logan was changed she has suprapubic discomfort and milky urine Vital Signs Period Temp Pulse Resp BP Sys/Conde Pulse Ox Last 24 Hr 97.2 F-98.3 F 50-55 20-20 129-159/43-63 96-98 cor-rrr lungs clear abd soft,nt +SPT to palpation ext no edema logan CBC, BMP 08/21/17 06:00 08/20/17 06:00 Laboratory Tests 08/20/17 16:45 Urine Protein 1+ H Urine Blood 3+ H Ur Leukocyte Esterase 3+ H Urine RBC 23 Urine WBC 140 Microbiology 08/16/17 22:10 Urine - Urine - Catheterized Urine Culture - Final Staphylococcus Aureus 08/13/17 15:15 Blood - Peripheral Venous Blood Culture - Final NO GROWTH AFTER 5 DAYS INCUBATION 08/13/17 15:15 Blood - Peripheral Venous Blood Culture - Final NO GROWTH AFTER 5 DAYS INCUBATION a/p UTI would start rocephin, f/u cultures
[2017-08-21] MEDS: CEFTRIAXONE 1 G/50 ML PREMIX 50 ML IVPB SCH (19:59)
[2017-08-21] MEDS: SENNOSIDES 8.6MG TABLET (FP) PO SCH (21:25)
[2017-08-21] MEDS: LIDOCAINE PATCH REMOVAL MC SCH (21:25)
[2017-08-22] MEDS: clonazePAM 0.5 MG TABLET PO SCH ×3 (06:15→21:58)
[2017-08-22] MEDS: ACETAMINOPHEN 325 MG TABLET (FP) PO PRN (06:15)
[2017-08-22 07:46] LABS: MCH 25.6 pg (25.7-33.7); MCHC 32.1 g/dl (32.0-36.0); MEAN CELL VOLUME 79.8 fl (80-96); MEAN PLT VOLUME 8.1 fl (7.5-11.1); PLATELET COUNT 469 K/MM3 (134-434); RDW 16.9 % (11.6-15.6); WHITE BLOOD COUNT 6.6 K/mm3 (4.0-10.0)
--- NOTE | 2017-08-22 09:07 | PN ---
Physical Exam: SUBJECTIVE: Patient seen and examined. Denies fevers, chills, CP, SOB. OBJECTIVE: Vital Signs Period Temp Pulse Resp BP Sys/Conde Pulse Ox Last 24 Hr 97.8 F-98 F 49-53 20-20 145-153/54-60 98 GEN: AAOx3, NAD, Sitting in bed comfortably HEENT: PERRLA, EOMi CV: S1, S2, RRR LUNG: CTABL anteriorly ABD: Soft, no TTP in suprapubic region, no flank tenderness, normoactive BS MSK: Difficult ROM of back, no edema Active Medications Generic Name Dose Route Start Last Admin Trade Name Freq PRN Reason Stop Dose Admin Acetaminophen 650 mg 08/11/17 19:05 08/22/17 06:15 Tylenol - PO 650 mg Q4H PRN Administration FEVER OR PAIN Amlodipine Besylate 10 mg 08/12/17 10:00 08/21/17 09:37 Norvasc - PO 10 mg DAILY MARGARITA Administration Cholecalciferol 2,000 unit 08/12/17 10:00 08/21/17 09:37 Vitamin D3 - PO 2,000 unit DAILY MARGARITA Administration Clonazepam 0.25 mg 08/11/17 22:00 08/22/17 06:15 Klonopin - PO 0.25 mg TID MARGARITA Administration Docusate Sodium 100 mg 08/18/17 22:00 08/21/17 21:25 Colace - PO 100 mg BID MARGARITA Administration Enoxaparin Sodium 80 mg 08/20/17 17:45 08/21/17 09:37 Lovenox - SQ 80 mg DAILY MARGARITA Administration Fentanyl 1 patch 08/14/17 12:00 08/20/17 12:51 Duragesic 12mcg Patch - TD 1 patch Q3D MARGARITA Administration Hydroxyurea 500 mg 08/12/17 10:00 08/21/17 09:37 Hydrea - PO 500 mg DAILY MARGARITA Administration CEFTRIAXONE 1 G/50 ML PREMIX 50 mls @ 100 mls/hr 08/21/17 17:45 08/21/17 19:59 Ceftriaxone 1 Gm-D5w Bag IVPB 100 mls/hr DAILY MARGARITA Administration Lactobacillus Acidophilus 1 tab 08/12/17 10:00 08/21/17 09:37 Bacid - PO 1 tab DAILY MARGARITA Administration Lidocaine 1 patch 08/16/17 11:15 08/21/17 09:38 Lidoderm Patch - TP 1 patch DAILY MARGARITA Administration Miscellaneous 1 each 08/14/17 11:56 Duragesic Patch Waste TD PRN PRN PAIN Miscellaneous 1 each 08/16/17 22:00 08/21/17 21:25 Lidoderm Patch Removal MC 1 each DAILY@2200 MARGARITA Administration Polyethylene Glycol 17 gm 08/18/17 14:51 Miralax (For Daily Use) - PO DAILY PRN CONSTIPATION Ranitidine HCl 150 mg 08/12/17 10:00 08/21/17 09:37 Zantac - PO 150 mg DAILY MARGARITA Administration Senna 2 tab 08/18/17 22:00 08/21/17 21:25 Senna - PO 2 tab HS MARGARITA Administration Sotalol HCl 120 mg 08/11/17 22:00 08/21/17 21:25 Betapace - PO 120 mg BID MARGARITA Administration CBC, BMP 08/22/17 06:00 08/20/17 06:00 Urine Test Results Urine Color Yellow 08/20/17 16:45 Urine Appearance Turbid 08/20/17 16:45 Urine pH 5.0 (5.0-8.0) 08/20/17 16:45 Ur Specific [place] <= 1.005 (1.005-1.025) 08/20/17 16:45 Urine Protein 1+ (NEGATIVE) H 08/20/17 16:45 Urine Glucose (UA) Negative (NEGATIVE) 08/20/17 16:45 Urine Ketones Negative (NEGATIVE) 08/20/17 16:45 Urine Blood 3+ (NEGATIVE) H 08/20/17 16:45 Urine Nitrite Negative (NEGATIVE) 08/20/17 16:45 Urine Bilirubin Negative (NEGATIVE) 08/20/17 16:45 Ur Leukocyte Esterase 3+ (NEGATIVE) H 08/20/17 16:45 Urine RBC 23 /hpf (0-3) 08/20/17 16:45 Urine WBC 140 /hpf (3-5) 08/20/17 16:45 Ur Epithelial Cells Rare /hpf (FEW) 08/20/17 16:45 Urine Bacteria Rare /hpf (NONE SEEN) 08/11/17 23:32 Urine Mucus Rare 08/20/17 16:45 Microbiology 08/16/17 22:10 Urine - Urine - Catheterized Urine Culture - Final Staphylococcus Aureus 08/13/17 15:15 Blood - Peripheral Venous Blood Culture - Final NO GROWTH AFTER 5 DAYS INCUBATION 08/13/17 15:15 Blood - Peripheral Venous Blood Culture - Final NO GROWTH AFTER 5 DAYS INCUBATION 08/20/17 16:45 Urine - Urine - Catheterized Urine Culture - Preliminary Lactose Fermenting Neg Bacilli Staphylococcus Latex Coag Pos ASSESSMENT/PLAN: Ms Lai is an 86 yo F with MALT lymphoma, essential thrombocytosis with myelofibrosis, recent portal vein/SMV thrombosis, recent T12 compression fracture, who presented to the ER with back pain. Uncomplicated Cystitis - UTI is likely due to the LFGNB, staph could be contaminant - Can continue Rocephin 1g QD for now - Can switch to Keflex 500mg Q12 7 days - Possible d/c to SNF today or tmrw - Monitor VS and CBC Discussed w/ Dr Lee. Will follow. Maryse Hung MD - PGY1 Infectious Disease Visit type - Emergency Visit Emergency Visit: No - New Patient This patient is new to me today: No - Critical Care Critical Care patient: No - Discharge Referral Referred to [facility] Med P.C.: No
[2017-08-22] MEDS ORDERED: PT OWN MED DRAWER 7, Y5N ONE ×3 (10:16→12:08)
--- NOTE | 2017-08-22 10:21 | PN ---
Progress Note (short form) - Note Progress Note: PULMONARY Started on IV antibiotics for UTI. No fevers or chills, no further suprapubic pressure. Last Vital Signs Temp Pulse Resp BP Pulse Ox 98 F 49 L 20 151/55 98 08/22/17 06:03 08/22/17 06:03 08/22/17 06:03 08/22/17 06:03 08/21/17 21:00 Gen: NAD at rest Heart: RRR Lung: decreased breath sounds at the bases Abd: soft, nontender Ext: no edema CBC, BMP 08/22/17 06:00 08/20/17 06:00 Active Medications Acetaminophen (Tylenol -) 650 mg PO Q4H PRN PRN Reason: FEVER OR PAIN Last Admin: 08/22/17 06:15 Dose: 650 mg Amlodipine Besylate (Norvasc -) 10 mg PO DAILY [facility] Last Admin: 08/21/17 09:37 Dose: 10 mg Cholecalciferol (Vitamin D3 -) 2,000 unit PO DAILY [facility] Last Admin: 08/21/17 09:37 Dose: 2,000 unit Clonazepam (Klonopin -) 0.25 mg PO TID [facility] Last Admin: 08/22/17 06:15 Dose: 0.25 mg Docusate Sodium (Colace -) 100 mg PO BID [facility] Last Admin: 08/21/17 21:25 Dose: 100 mg Enoxaparin Sodium (Lovenox -) 80 mg SQ DAILY [facility] Last Admin: 08/21/17 09:37 Dose: 80 mg Fentanyl (Duragesic 12mcg Patch -) 1 patch TD Q3D [facility] Last Admin: 08/20/17 12:51 Dose: 1 patch Furosemide (Lasix -) 20 mg PO DAILY [facility] Hydroxyurea (Hydrea -) 500 mg PO DAILY [facility] Last Admin: 08/21/17 09:37 Dose: 500 mg CEFTRIAXONE 1 G/50 ML PREMIX (Ceftriaxone 1 Gm-D5w Bag) 50 mls @ 100 mls/hr IVPB DAILY [facility] Last Admin: 08/21/17 19:59 Dose: 100 mls/hr Lactobacillus Acidophilus (Bacid -) 1 tab PO DAILY [facility] Last Admin: 08/21/17 09:37 Dose: 1 tab Lidocaine (Lidoderm Patch -) 1 patch TP DAILY [facility] Last Admin: 08/21/17 09:38 Dose: 1 patch Miscellaneous (Duragesic Patch Waste) 1 each TD PRN PRN PRN Reason: PAIN Miscellaneous (Lidoderm Patch Removal) 1 each MC DAILY@2200 [facility] Last Admin: 08/21/17 21:25 Dose: 1 each Polyethylene Glycol (Miralax (For Daily Use) -) 17 gm PO DAILY PRN PRN Reason: CONSTIPATION Ranitidine HCl (Zantac -) 150 mg PO DAILY [facility] Last Admin: 08/21/17 09:37 Dose: 150 mg Senna (Senna -) 2 tab PO HS [facility] Last Admin: 08/21/17 21:25 Dose: 2 tab Sotalol HCl (Betapace -) 120 mg PO BID [facility] Last Admin: 08/21/17 21:25 Dose: 120 mg A/P Intractable Back Pain T12 Compression Fracture MALT Lymphoma Paroxysmal Atrial Fibrillation Portal Vein/SMV Thrombosis Essential Thrombocytosis/Myelofibrosis UTI - continue antibiotics - f/u cultures - pain control - rehab/PT - continue anticoagulation - monitor H/H
--- NOTE | 2017-08-22 10:51 | PN ---
Teaching Attending Note Name of Resident: Maryse Hung ATTENDING PHYSICIAN STATEMENT I saw and evaluated the patient. I reviewed the resident's note and discussed the case with the resident. I agree with the resident's findings and plan as documented. SUBJECTIVE:Ceftriaxone day 2 OBJECTIVE:NO fever WBC elevation ASSESSMENT AND PLAN: Microbiology 08/16/17 22:10 Urine - Urine - Catheterized Urine Culture - Final Staphylococcus Aureus 08/20/17 16:45 Urine - Urine - Catheterized Urine Culture - Preliminary Lactose Fermenting Neg Bacilli Staphylococcus Latex Coag Pos Laboratory Tests 08/20/17 08/22/17 06:00 06:00 WBC 6.6 RBC 3.26 L Plt Count 469 H BUN 32 H Creatinine 0.7 Assessment UTI uncomplicated Plan Consider Keflex or Vantin few days Rosa PIERSON
[2017-08-22] MEDS: ENOXAPARIN NA (PORCINE) 80 MG/0.8 ML DISP.SYRIN SQ SCH (11:12)
[2017-08-22] MEDS: LIDOCAINE 5% TOPICAL PATCH TP SCH (11:12)
[2017-08-22] MEDS: CHOLECALCIFEROL (VITAMIN D3) 1,000 UNIT TABLET (FP) PO SCH (11:13)
[2017-08-22] MEDS: HYDROXYUREA 500 MG CAPSULE PO SCH (11:13)
[2017-08-22] MEDS: DOCUSATE SODIUM 100 MG CAPSULE (FP) PO SCH ×2 (11:14→21:56)
[2017-08-22] MEDS: RANITIDINE HCL 150 MG TABLET (FP) PO SCH (11:14)
[2017-08-22] MEDS: LACTOBACILLUS ACIDOPHILUS 1 EACH TAB (FP) PO SCH (11:16)
[2017-08-22] MEDS: amLODIPine BESYLATE 10 MG TABLET (FP) PO SCH (12:12)
[2017-08-22] MEDS: CEFTRIAXONE 1 G/50 ML PREMIX 50 ML IVPB SCH (12:12)
[2017-08-22] MEDS: SOTALOL HCL 80 MG TABLET (FP) PO SCH ×2 (12:12→21:59)
[2017-08-22] MEDS: FUROSEMIDE 20 MG TABLET (FP) PO SCH (12:12)
--- NOTE | 2017-08-22 13:32 | CONSULT ---
Consult - text type - Consultation Consultation Note: NEUROLOGY CONSULTATION is greatly appreciated: This 86 yo RH woman lives alone with [employer] 4 hrs x 5 days since recent D/C from [place]. Her is in [facility]. PMH sig for: HTN,MVR, AFib, hypothyroidism (after Tucker's) and Lymphoma with myelodysplasia and thrombocytosis ([id number]). Maintained on: sotolol, amlodipine, clonazepam, ranitidine, lasix and hydroxyurea. Has required walker for gait for "some time." In May was climbing her front steps and opened her storm door when she fell backwards onto her back without head trauma or LOC. Admitted [facility] with T12 Burst fracture treated conservatively. Had rehab x 1 month at [place] then home with home health aide M-F x 4 hrs/day. Readmitted 08/11 with increased Back pain making ambulation difficult and urinary urgency. CT/MRI of Thoracic and LS spine reviewed: slight increase in T12 compression wit moderate epidural extension and moderate canal stenosis. Enlarged bladder noted with post-Baldwin residual of 350 cc. Still with Baldwin and now with UTI (not present on admission UA). Pains improved on low-dose fentanyl patch without confusion. MARIAJOSE: Thin , frail. kyphoscoliosis. No spinal palpation tenderness. Sl decreased neck ROM. - SLR. No bruits. Baldwin in situ. NEURO: MS/Speech: Normal CN II-XII: Normal. Motor: No drift, tremor or cogwheeling. Normal strength including hip flexors and ankle dorsiflexors. Areflexic in legs. Coord: No FTN dystaxia Sensory: normal touch and vibration in the feet. Romberg - Gait: Shffling and retropulsive. IMP: Multi-factorial gait dysfunction T12 Burst/compression fracture. No obvious signs of cauda equina syndrome. Suggest: Pain meds and laxatives. Complete antibiotics and attempt to remove Baldwin. Rehab for gait training with walker. Would avoid kyphoplasty. Expand home services. Thank you very much, Shorty Mcgraw MD
--- NOTE | 2017-08-22 14:42 | PN ---
Teaching Attending Note Name of Resident: Milton Vickers ATTENDING PHYSICIAN STATEMENT I saw and evaluated the patient. I reviewed the resident's note and discussed the case with the resident. I agree with the resident's findings and plan as documented. SUBJECTIVE:states pain is controlled with current regimen. denies CP, SOB, fever , chills, N/V/C/D OBJECTIVE: Last Vital Signs Temp Pulse Resp BP Pulse Ox 98.0 F 52 L 20 136/54 98 08/22/17 14:04 08/22/17 14:04 08/22/17 14:04 08/22/17 14:04 08/21/17 21:00 General NAD Abdomen soft NT/ND ASSESSMENT AND PLAN: 86 yo F with PMH HTN, MALT lymphoma, PAF, Tucker's thyroiditis, essential thrombocytosis with myelofibrosis, recent portal vein/SMV thrombosis, recent T12 compression fracture, GERD who presented to the ER with back pain. 1. Back pain secondary to T12 compression fracture with conus medullaris compression- s/p T12 facet block on 08/15 with only modest improvement. was poor surgical candidate and opted for medical management with TLSO brace, however not much improvement with nerve block. pt and family now agreeable to kyphoplasty which will be pursued after [facility] as outpatient 2. +MSSA UCx- UCx + GNR and staph. on Ceftriaxone and can transition to keflex for a week. once abx are completed should start bladder training trial. 3. Neurogenic bladder- likely component from T12 fracture however may also be superimposed from UTI. evaluated by urology. logan exchanged yesterday. will maintain logan at this time. can initiate bladder training trials once abx are completed. 4. constipation- resolved. cont stool softeners prn 5. HTN- controlled. cont norvasc. cont to hold lasix 6. PAF- sinus rhythm. on sotalol, full dose lovenox 7. Essential thrombocytosis with myelofibrosis, anemia- transfused 1 unit PRBC this admission. Hgb stable this admission. goal Hgb >8. on hydroxyurea, procrit 8. Portal vein/SMV thrombosis- failed coumadin. on full dose lovenox 9. MALT lymphoma 10. History of Tucker's thyroiditis 11. GERD- Continue Zantac 12. DVT ppx- full dose daily lovenox 13. d/c to [facility]. pt can opt to go for kyphoplasty as outpatient.
--- NOTE | 2017-08-22 15:26 | PN ---
Progress Note (short form) - Note Progress Note: Patient seen and examined still with back pain did some physical therapy today Last Vital Signs Temp Pulse Resp BP Pulse Ox 98.0 F 52 L 20 136/54 98 08/22/17 14:04 08/22/17 14:04 08/22/17 14:04 08/22/17 14:04 08/21/17 21:00 Cor: RSR, No murmurs, No gallops Lungs: Clear to P&A Abd: Soft, Normal bowel sounds, No organomegaly Ext:No significant edema Skin: No rashes, Integument intact Abnormal Lab Results 08/22/17 06:00 RBC 3.26 L Hgb 8.4 L Hct 26.0 L MCV 79.8 L MCH 25.6 L RDW 16.9 H Plt Count 469 H Home Medication List Medication Instructions Recorded Confirmed Type Clonazepam [Klonopin] 0.25 mg PO TID 04/21/14 08/11/17 History Ranitidine [Zantac -] 150 mg PO DAILY 06/10/15 08/11/17 History Cholecalciferol (Vitamin D3) 2,000 unit PO DAILY 03/22/16 08/11/17 History [Vitamin D3] Epoetin Chris [Procrit] 0 unit IJ ASDIR 09/11/16 08/11/17 History Lactobacillus Acidophilus 1 each PO DAILY 08/11/17 08/11/17 History [Probiotic] Lidocaine 5% Patch 1 patch TP DAILY 08/11/17 08/11/17 History Propylene Glycol/Peg 400 [Systane 1 drop OP DAILY 08/11/17 08/11/17 History Ultra 0.4-0.3% Eye Drp] Sotalol HCl [Betapace -] 120 mg PO BID 08/11/17 08/11/17 History Active Medications Generic Name Dose Route Start Last Admin Trade Name Freq PRN Reason Stop Dose Admin Acetaminophen 650 mg 08/11/17 19:05 08/22/17 06:15 Tylenol - PO 650 mg Q4H PRN Administration FEVER OR PAIN Amlodipine Besylate 10 mg 08/12/17 10:00 08/22/17 12:12 Norvasc - PO 10 mg DAILY MARGARITA Administration Cephalexin HCl 500 mg 08/23/17 06:00 Keflex - PO Q6HPO AMRGARITA Cholecalciferol 2,000 unit 08/12/17 10:00 08/22/17 11:13 Vitamin D3 - PO 2,000 unit DAILY MARGARITA Administration Clonazepam 0.25 mg 08/11/17 22:00 08/22/17 13:38 Klonopin - PO 0.25 mg TID MARGARITA Administration Docusate Sodium 100 mg 08/18/17 22:00 08/22/17 11:14 Colace - PO 100 mg BID MARGARITA Administration Enoxaparin Sodium 80 mg 08/20/17 17:45 08/22/17 11:12 Lovenox - SQ 80 mg DAILY MARGARITA Administration Fentanyl 1 patch 08/14/17 12:00 08/20/17 12:51 Duragesic 12mcg Patch - TD 1 patch Q3D MARGARITA Administration Furosemide 20 mg 08/22/17 12:00 08/22/17 12:12 Lasix - PO 20 mg DAILY MARGARITA Administration Hydroxyurea 500 mg 08/12/17 10:00 08/22/17 11:13 Hydrea - PO 500 mg DAILY MARGARITA Administration CEFTRIAXONE 1 G/50 ML PREMIX 50 mls @ 100 mls/hr 08/21/17 17:45 08/22/17 12:12 Ceftriaxone 1 Gm-D5w Bag IVPB 100 mls/hr DAILY MARGARITA Administration Lactobacillus Acidophilus 1 tab 08/12/17 10:00 08/22/17 11:16 Bacid - PO 1 tab DAILY MARGARITA Administration Lidocaine 1 patch 08/16/17 11:15 08/22/17 11:12 Lidoderm Patch - TP 1 patch DAILY MARGARITA Administration Miscellaneous 1 each 08/14/17 11:56 Duragesic Patch Waste TD PRN PRN PAIN Miscellaneous 1 each 08/16/17 22:00 08/21/17 21:25 Lidoderm Patch Removal MC 1 each DAILY@2200 MARGARITA Administration Polyethylene Glycol 17 gm 08/18/17 14:51 Miralax (For Daily Use) - PO DAILY PRN CONSTIPATION Ranitidine HCl 150 mg 08/12/17 10:00 08/22/17 11:14 Zantac - PO 150 mg DAILY MARGARITA Administration Senna 2 tab 08/18/17 22:00 08/21/17 21:25 Senna - PO 2 tab HS MARGARITA Administration Sotalol HCl 120 mg 08/11/17 22:00 08/22/17 12:12 Betapace - PO 120 mg BID MARGARITA Administration A/P 86 y/o patient with MPD, MALT lymphoma, iron overload, abnormal liver MRI, comes in with worsening compression fracture. Now a burst fracture s/p epidural steroid discussed case with Dr. garcia ---consult much appreciated to treat UTI and attempt removal of logan catheter in 7 days rehab placement/brace discussed wtih all teams involved
--- NOTE | 2017-08-22 20:49 | PN ---
Physical Exam: SUBJECTIVE: Patient seen and examined at bedside. pain is better over night, was able to walk to the door with the PT. she feels pressure due to catheter, she reports some urine leaking on her diaper. She denies fever, chills, N/V, tingling numbness in any ext. OBJECTIVE: Vital Signs Period Temp Pulse Resp BP Sys/Conde Pulse Ox Last 24 Hr 97.8 F-98.8 F 49-56 18-20 134-152/54-56 98 GENERAL: The patient is awake, alert, and fully oriented, in mild distress. HEAD: Normal with no signs of trauma. EYES: sclera anicteric, conjunctiva pallor . ENT: moist mucous membranes. LUNGS: Breath sounds equal, clear to auscultation bilaterally, no wheezes, no crackles, no accessory muscle use. HEART: Regular rate and rhythm, S1, S2 without murmur, rub or gallop. ABDOMEN: Soft, nontender, distended, normoactive bowel sounds, no guarding, no rebound, logan in place. EXTREMITIES: 2+ pulses, warm, well-perfused, no edema. NEUROLOGICAL: Good mentation, strength 5/5 in all ext, sensation intact, hyporeflexia in lower ext . PSYCH: Normal mood, normal affect. SKIN: Warm, dry, no rashes or lesions noted Laboratory Results - last 24 hr 08/22/17 06:00 WBC 6.6 RBC 3.26 L Hgb 8.4 L Hct 26.0 L MCV 79.8 L MCH 25.6 L MCHC 32.1 RDW 16.9 H Plt Count 469 H MPV 8.1 Active Medications Generic Name Dose Route Start Last Admin Trade Name Freq PRN Reason Stop Dose Admin Acetaminophen 650 mg 08/11/17 19:05 08/22/17 06:15 Tylenol - PO 650 mg Q4H PRN Administration FEVER OR PAIN Amlodipine Besylate 10 mg 08/12/17 10:00 08/22/17 12:12 Norvasc - PO 10 mg DAILY MARGARITA Administration Cephalexin HCl 500 mg 08/23/17 06:00 Keflex - PO Q6HPO MARGARITA Cholecalciferol 2,000 unit 08/12/17 10:00 08/22/17 11:13 Vitamin D3 - PO 2,000 unit DAILY MARGARITA Administration Clonazepam 0.25 mg 08/11/17 22:00 08/22/17 13:38 Klonopin - PO 0.25 mg TID MARGARITA Administration Docusate Sodium 100 mg 08/18/17 22:00 08/22/17 11:14 Colace - PO 100 mg BID MARGARITA Administration Enoxaparin Sodium 80 mg 08/20/17 17:45 08/22/17 11:12 Lovenox - SQ 80 mg DAILY MARGARITA Administration Fentanyl 1 patch 08/14/17 12:00 08/20/17 12:51 Duragesic 12mcg Patch - TD 1 patch Q3D MARGARITA Administration Furosemide 20 mg 08/22/17 12:00 08/22/17 12:12 Lasix - PO 20 mg DAILY MARGARITA Administration Hydroxyurea 500 mg 08/12/17 10:00 08/22/17 11:13 Hydrea - PO 500 mg DAILY MARGARITA Administration CEFTRIAXONE 1 G/50 ML PREMIX 50 mls @ 100 mls/hr 08/21/17 17:45 08/22/17 12:12 Ceftriaxone 1 Gm-D5w Bag IVPB 100 mls/hr DAILY MARGARITA Administration Lactobacillus Acidophilus 1 tab 08/12/17 10:00 08/22/17 11:16 Bacid - PO 1 tab DAILY MARGARITA Administration Lidocaine 1 patch 08/16/17 11:15 08/22/17 11:12 Lidoderm Patch - TP 1 patch DAILY MARGARITA Administration Miscellaneous 1 each 08/14/17 11:56 Duragesic Patch Waste TD PRN PRN PAIN Miscellaneous 1 each 08/16/17 22:00 08/21/17 21:25 Lidoderm Patch Removal MC 1 each DAILY@2200 MARGARITA Administration Polyethylene Glycol 17 gm 08/18/17 14:51 Miralax (For Daily Use) - PO DAILY PRN CONSTIPATION Ranitidine HCl 150 mg 08/12/17 10:00 08/22/17 11:14 Zantac - PO 150 mg DAILY MARGARITA Administration Senna 2 tab 08/18/17 22:00 08/21/17 21:25 Senna - PO 2 tab HS MARGARITA Administration Sotalol HCl 120 mg 08/11/17 22:00 08/22/17 12:12 Betapace - PO 120 mg BID MARGARITA Administration CBC, BMP 08/22/17 06:00 08/20/17 06:00 08/16/17 22:10 Urine - Urine - Catheterized Urine Culture - Preliminary Staphylococcus Aureus 08/13/17 15:15 Blood - Peripheral Venous Blood Culture - Final NO GROWTH AFTER 5 DAYS INCUBATION 08/13/17 15:15 Blood - Peripheral Venous Blood Culture - Final NO GROWTH AFTER 5 DAYS INCUBATION ASSESSMENT/PLAN: 86yo F hx HTN, lymphoma, al's, GERD, thrombocytopenia, portal vein thrombosis presented to the ED with 5 days of worsening Lower back pain. Pt had a T12 compression fracture 4 months ago, was in rehab for 4 months. Today presented with sever back pain was found to have urinary retention and compression fracture and was admitted for further evaluation. # cord compression at T12 due to burst compression fracture * CT scan reviewed shows 50 % effacement of spinal canal at T12 * MRI lumbar spine , pt was not able to sit settled in the MRI X3 , * pain killer with Morphine 2 mg IVPUSH Q 4hr PRN, Tylenol 650 PO Q6 hr, phentanyl patch, lidodermal patch * S/p T12 facet block on 08/15 * Neurosurgery consultation , , conservative treatment no surgery for now. * Hematology,Pulmonary, cardiology on board * fall precautions * Plan to proceed with conservative treatment , pain management , PT, epidural steroid and kyphoplasty consider she is at high risk for surgery. * Blood Cx no growth, Urine Cx Staph aureus start Ceftriaxone 1 gm IVBP daily . * pending transfer to [facility] * Continue Lidoderm patch, Fentanyl patch * Continue physical therapy - walked 20 feet with rolling walker today and reported pain #Neurogenic bladder, likely 2/2 cord compression at T12, vs new onset UTI * She feels the urge but not able to empty her bladder * Bladder scan >342 cc at admission * Logan was replaced, maintain * U cx Staph aureus, MSSA, serratia , * UA + * continue Start Ceftriaxone 1 gm daily day 2 * Switch abx to keflex 500 BID for 7 days and then try to train the bladder to DC logan # Constipation 2/2 meds vs immobile, improved * Continue Miralax 17 po daily and Colace 100 BID * Continue Senna 100 BID, * Colace 2 tab HS # Hyponatremia, likley 2/2 low oral intake , resolved * Repeat CMP in AM * advance her diet to low sodium diet due to HTN # HTN * normotensive * Hold lasix * continue Amlodipine 10 mg PO daily, * # Lymphoma , Malt * Hematology on the board * can follow as out patient * continue home meds #Paroxysmal afib * remains in sinus tach * c/w sotalol 120 po daily ; * continue Lovenox 80 mg daily * consider to hold if procedure considered # 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 * S/p transfuse 1 unit PRBC. goal Hgb >8. * cont hydroxyurea. * continue procrit # Portal vein/SMV thrombosis * on full dose lovenox 80 daily * Failed Coumadin treatment #Anxiety * c/w klonopin 0.25 mg po bid prn for anxiety # H/O Al Thyroiditis * F/U as out patient # GERD, * Continue Zantac # FEN * F :on no fluids * E: Monitor * N: low sodium diet # Proph * DVT: SCDs, lovenox 80 , * GI : no need for now * PT eval , walked 20 feet. # dispo * Admit to med -surg * hem and cardio on board for risk stratification , high risk for surgery, conservative management for now * S/p epidural steroid injection * She will be placed on transfer list to [facility] , but she refused to be transferred today she is asking for another day. Visit type - Emergency Visit Emergency Visit: Yes ED Registration Date: 08/11/17 Care time: The patient presented to the Emergency Department on the above date and was hospitalized for further evaluation of their emergent condition. - New Patient This patient is new to me today: No - Critical Care Critical Care patient: No - Discharge Referral Referred to [facility] Med P.C.: No
[2017-08-22] MEDS: SENNOSIDES 8.6MG TABLET (FP) PO SCH (21:59)
[2017-08-22] MEDS: LIDOCAINE PATCH REMOVAL MC SCH (22:06)
[2017-08-23] MEDS: clonazePAM 0.5 MG TABLET PO SCH ×2 (06:20→13:30)
[2017-08-23] MEDS: CEPHALEXIN MONOHYDRATE 500 MG CAPSULE (UD) PO SCH ×2 (06:20→12:38)
[2017-08-23] MEDS: ACETAMINOPHEN 325 MG TABLET (FP) PO PRN (08:33)
[2017-08-23] MEDS: SOTALOL HCL 80 MG TABLET (FP) PO SCH (09:15)
[2017-08-23] MEDS: ENOXAPARIN NA (PORCINE) 80 MG/0.8 ML DISP.SYRIN SQ SCH (09:15)
[2017-08-23] MEDS: HYDROXYUREA 500 MG CAPSULE PO SCH (09:16)
[2017-08-23] MEDS: CHOLECALCIFEROL (VITAMIN D3) 1,000 UNIT TABLET (FP) PO SCH (09:17)
[2017-08-23] MEDS: RANITIDINE HCL 150 MG TABLET (FP) PO SCH (09:17)
[2017-08-23] MEDS: DOCUSATE SODIUM 100 MG CAPSULE (FP) PO SCH (09:17)
[2017-08-23] MEDS: amLODIPine BESYLATE 10 MG TABLET (FP) PO SCH (09:18)
[2017-08-23] MEDS: FUROSEMIDE 20 MG TABLET (FP) PO SCH (09:18)
[2017-08-23] MEDS: LACTOBACILLUS ACIDOPHILUS 1 EACH TAB (FP) PO SCH (09:18)
[2017-08-23] MEDS: LIDOCAINE 5% TOPICAL PATCH TP SCH (09:18)
--- NOTE | 2017-08-23 10:42 | PN ---
Progress Note (short form) - Note Progress Note: Patient seen and examined more ambulatory feels better Last Vital Signs Temp Pulse Resp BP Pulse Ox 97.6 F 50 L 18 168/60 96 08/23/17 09:14 08/23/17 09:14 08/23/17 09:14 08/23/17 09:14 08/22/17 21:00 Cor: RSR, No murmurs, No gallops Lungs: Clear to P&A Abd: Soft, Normal bowel sounds, No organomegaly Ext:No significant edema Skin: No rashes, Integument intact Active Medications Acetaminophen (Tylenol -) 650 mg PO Q4H PRN PRN Reason: FEVER OR PAIN Last Admin: 08/23/17 08:33 Dose: 650 mg Amlodipine Besylate (Norvasc -) 10 mg PO DAILY [facility] Last Admin: 08/23/17 09:18 Dose: 10 mg Cephalexin HCl (Keflex -) 500 mg PO Q6HPO [facility] Last Admin: 08/23/17 06:20 Dose: 500 mg Cholecalciferol (Vitamin D3 -) 2,000 unit PO DAILY [facility] Last Admin: 08/23/17 09:17 Dose: 2,000 unit Clonazepam (Klonopin -) 0.25 mg PO TID [facility] Last Admin: 08/23/17 06:20 Dose: 0.25 mg Docusate Sodium (Colace -) 100 mg PO BID [facility] Last Admin: 08/23/17 09:17 Dose: 100 mg Enoxaparin Sodium (Lovenox -) 80 mg SQ DAILY [facility] Last Admin: 08/23/17 09:15 Dose: 80 mg Fentanyl (Duragesic 12mcg Patch -) 1 patch TD Q3D [facility] Last Admin: 08/20/17 12:51 Dose: 1 patch Furosemide (Lasix -) 20 mg PO DAILY [facility] Last Admin: 08/23/17 09:18 Dose: 20 mg Hydroxyurea (Hydrea -) 500 mg PO DAILY [facility] Last Admin: 08/23/17 09:16 Dose: 500 mg Lactobacillus Acidophilus (Bacid -) 1 tab PO DAILY [facility] Last Admin: 08/23/17 09:18 Dose: 1 tab Lidocaine (Lidoderm Patch -) 1 patch TP DAILY [facility] Last Admin: 08/23/17 09:18 Dose: 1 patch Miscellaneous (Duragesic Patch Waste) 1 each TD PRN PRN PRN Reason: PAIN Miscellaneous (Lidoderm Patch Removal) 1 each MC DAILY@2200 [facility] Last Admin: 08/22/17 22:06 Dose: 1 each Polyethylene Glycol (Miralax (For Daily Use) -) 17 gm PO DAILY PRN PRN Reason: CONSTIPATION Ranitidine HCl (Zantac -) 150 mg PO DAILY [facility] Last Admin: 08/23/17 09:17 Dose: 150 mg Senna (Senna -) 2 tab PO HS [facility] Last Admin: 08/22/17 21:59 Dose: Not Given Sotalol HCl (Betapace -) 120 mg PO BID [facility] Last Admin: 08/23/17 09:15 Dose: 120 mg A/P 86 y/o patient with MPD, MALT lymphoma, iron overload, abnormal liver MRI, comes in with worsening compression fracture. Now a burst fracture s/p epidural steroid to treat UTI and attempt removal of logan catheter in 7 days---started antibiotics --08/21 rehab placement/brace
--- NOTE | 2017-08-23 11:21 | PN ---
Progress Note (short form) - Note Progress Note: PULMONARY NO OVERALL CHANGE IN EXAM PAIN STATUS IMPROVED S/P FACET BLOCK PERFORMED 08/15 NOW WITH GUY AND UTI ON ANTIBIOTICS KYPHOPLASTY WILL NOT RECOMMENDED CONTINUE CURRENT TREATMENT/PLAN PER PRIMARY TEAM AGREE WITH DISCHARGE PLANNING Yan ROSS MD
[2017-08-23] MEDS: fentaNYL 12mcg/hr PATCH.TD72 TD SCH (12:39)
[2017-08-23 14:10] VITALS: BP 142/49; PULSE 51; TEMP 97.8
--- NOTE | 2017-08-23 14:12 | PN ---
Teaching Attending Note Name of Resident: Milton Vickers ATTENDING PHYSICIAN STATEMENT I saw and evaluated the patient. I reviewed the resident's note and discussed the case with the resident. I agree with the resident's findings and plan as documented. SUBJECTIVE:states pain is controlled. denies Cp, SOB< fever, chills, N/V/C/D, urinary leakage around logan OBJECTIVE: Last Vital Signs Temp Pulse Resp BP Pulse Ox 97.8 F 51 L 18 142/49 96 08/23/17 14:09 08/23/17 14:09 08/23/17 14:09 08/23/17 14:09 08/22/17 21:00 General NAD ASSESSMENT AND PLAN: 86 yo F with PMH HTN, MALT lymphoma, PAF, Tucker's thyroiditis, essential thrombocytosis with myelofibrosis, recent portal vein/SMV thrombosis, recent T12 compression fracture, GERD who presented to the ER with back pain. 1. Back pain secondary to T12 compression fracture with conus medullaris compression- s/p T12 facet block on 08/15 with only modest improvement. was poor surgical candidate and opted for medical management with TLSO brace, however not much improvement with nerve block. pt and family now agreeable to kyphoplasty which will be pursued after [facility] as outpatient if they cont to desire 2. +MSSA UCx- UCx + GNR and staph. now on keflex for 1 week. once abx are completed should start bladder training trial. 3. Neurogenic bladder- likely component from T12 fracture however may also be superimposed from UTI. evaluated by urology. logan exchanged this admission. will maintain logan at this time. can initiate bladder training trials once abx are completed. 4. constipation- resolved. cont stool softeners prn 5. HTN- controlled. cont norvasc. cont to hold lasix 6. PAF- sinus rhythm. on sotalol, full dose lovenox 7. Essential thrombocytosis with myelofibrosis, anemia- transfused 1 unit PRBC this admission. Hgb stable this admission. goal Hgb >8. on hydroxyurea, procrit 8. Portal vein/SMV thrombosis- failed coumadin. on full dose lovenox 9. MALT lymphoma 10. History of Tucker's thyroiditis 11. GERD- Continue Zantac 12. DVT ppx- full dose daily lovenox 13. medically stable for discharge to [facility]. family appealing discharge. no acute care needs requiring hospital stay. [facility]
[2017-08-23] MEDS ORDERED: VANCOMYCIN 500 MG/100 ML PRE-DOCKED IVPB ONE (14:29)
--- NOTE | 2017-08-23 14:36 | PN ---
Progress Note (short form) - Note Progress Note: logan was changed Vital Signs Period Temp Pulse Resp BP Sys/Conde Pulse Ox Last 24 Hr 97.6 F-98.8 F 50-81 18-20 134-168/49-77 96 no thrush cor-rrr lungs decreased bs at bases abd soft,nt ext no edema logan CBC, BMP 08/22/17 06:00 08/20/17 06:00 Microbiology 08/20/17 16:45 Urine - Urine - Catheterized Urine Culture - Final Klebsiella Pneumoniae Mr S Aureus 08/16/17 22:10 Urine - Urine - Catheterized Urine Culture - Final Staphylococcus Aureus 08/13/17 15:15 Blood - Peripheral Venous Blood Culture - Final NO GROWTH AFTER 5 DAYS INCUBATION 08/13/17 15:15 Blood - Peripheral Venous Blood Culture - Final NO GROWTH AFTER 5 DAYS INCUBATION a/p UTI-mrsa/klebsiella one dose vancomycin today single strength bactrim bid for 3 days d/w medicine service
[2017-08-23] MEDS ORDERED: PT OWN MED DRAWER 7, Y5N ONE ×2 (14:59→16:35)
[2017-08-23] MEDS ORDERED: VANCOMYCIN 750 MG in DEXTROSE 5%-WATER - 250 ML IVPB ONE (15:00)
[2017-08-23] MEDS ORDERED: VANCOMYCIN 500 MG in DEXTROSE 5%-WATER - 100 ML IVPB ONE (15:00)
[2017-08-24] MEDS ORDERED: SULFAMETHOXAZOLE/TRIMETHOPRIM 400MG/80MG S.S. TABLET PO SCH (10:00)
== END 2017-08-23 17:13 | DRG 551 ==
LOC: JER 07:42 → JERBED 15:47 → UNDOADMIN 15:54 → JERBED 15:54 → J7W 20:12
PROVIDERS: ADMIT Internal Medicine; ATTEND Internal Medicine
PROC: 3E0S33Z Introduction of Anti-inflammatory into Epidural Space, Percutaneous Approach (ICD-10-PCS; principal; 2017-08-12)
PROC: 30233N1 Transfusion of Nonautologous Red Blood Cells into Peripheral Vein, Percutaneous Approach (ICD-10-PCS; 2017-08-12)
DX: S22.081A Stable burst fracture of T11-T12 vertebra, initial encounter for closed fracture (principal); I81 Portal vein thrombosis; C88.4 Extranodal marginal zone B-cell lymphoma of mucosa-associated lymphoid tissue [MALT-lymphoma]; N39.0 Urinary tract infection, site not specified; E87.1 Hypo-osmolality and hyponatremia; D75.81 Myelofibrosis; I10 Essential (primary) hypertension; K59.00 Constipation, unspecified; I48.0 Paroxysmal atrial fibrillation; D64.9 Anemia, unspecified; D47.3 Essential (hemorrhagic) thrombocythemia; K21.9 Gastro-esophageal reflux disease without esophagitis; F41.9 Anxiety disorder, unspecified; B96.1 Klebsiella pneumoniae [K. pneumoniae] as the cause of diseases classified elsewhere; N31.9 Neuromuscular dysfunction of bladder, unspecified; E03.9 Hypothyroidism, unspecified; R26.9 Unspecified abnormalities of gait and mobility; R33.9 Retention of urine, unspecified; E06.3 Autoimmune thyroiditis; X58.XXXA Exposure to other specified factors, initial encounter; Y93.9 Activity, unspecified; Y92.89 Other specified places as the place of occurrence of the external cause; Y99.9 Unspecified external cause status
CPT/HCPCS: 36415; 36430; 72128-TC; 72131-TC; 76000-TC; 76856-TC; 80048; 80053; 81003; 81015; 83735; 85025; 85027; 85384; 85610; 85730; 86850; 86900; 86901; 86922; 87040; 87086; 87186; 93005; 93010; 97116-GP; 97162-GP; 99285-25; J8999; P9038; P9058

== ENCOUNTER 2018-01-15 12:46 | Day surgery (SDC) | payer OTHER, MEDICARE ==
[2018-01-15 14:11] LABS: HEMATOCRIT 24.7 % (32.4-45.2); HEMOGLOBIN 7.9 GM/dL (10.7-15.3); MCHC 32.1 g/dl (32.0-36.0); MEAN PLT VOLUME 7.8 fl (7.5-11.1); PLATELET COUNT 604 K/MM3 (134-434); RBC 2.94 M/mm3 (3.60-5.2); RDW 16.8 % (11.6-15.6); WHITE BLOOD COUNT 6.2 K/mm3 (4.0-10.0)
[2018-01-15 14:14] LABS: ALBUMIN 4.1 g/dl (3.4-5.0); ANION GAP 11 (8-16); BLOOD UREA NITROGEN 26 mg/dL (7-18); CALCIUM 9.3 mg/dL (8.5-10.1); CHLORIDE 97 mmol/L (98-107); CO2 28 mmol/L (21-32); CREATININE 1.1 mg/dL (0.55-1.02); GLUCOSE,RANDOM 129 mg/dL (74-106); POTASSIUM 4.7 mmol/L (3.5-5.1); SGOT/AST 20 U/L (15-37); SGPT/ALT 19 U/L (12-78); SODIUM 136 mmol/L (136-145)
[2018-01-15 14:15] LABS: ALK PHOS 115 U/L (45-117); BILIRUBIN,TOTAL 0.8 mg/dL (0.2-1.0); TOT PROT 7.4 g/dl (6.4-8.2)
--- NOTE | 2018-01-15 17:31 | HP ---
[facility] - Chief Complaint History of Present Illness: for PRBC x2 , has MDS, portal vein thrombus. Seen and examined History Source: Patient, Medical Record - Past Medical History Allergies/Adverse Reactions: Allergies Allergy/AdvReac Type Severity Reaction Status Date / Time propoxyphene napsylate Allergy Severe Swelling Verified 08/11/17 08:32 [From Darvocet-N 100] aspirin Allergy Difficulty Verified 08/11/17 08:32 Breathing hydromorphone HCl Allergy Verified 08/11/17 08:32 [From Dilaudid] Cardiovascular: Yes: AFIB, HTN, Other (Mitral Valve Prolapse) Gastrointestinal: Yes: GERD Renal/: Yes: Neurogenic Bladder, UTI Heme/Onc: Yes: Anemia, Myeloproliferative Synd ENT: Yes: Allergic Rhinitis, Sinusitis Endocrine: Yes: Other (Hashimotos thyroiditis) - Current Medications Current Medications: Home Medications Medication Instructions Recorded Amlodipine Besylate [Norvasc -] 10 mg PO DAILY #0 tablet 05/13/13 Clonazepam [Klonopin] 0.25 mg PO TID 04/21/14 Ranitidine [Zantac -] 150 mg PO DAILY 06/10/15 Cholecalciferol (Vitamin D3) 2,000 unit PO DAILY 03/22/16 [Vitamin D3] Epoetin Chris [Procrit] 0 unit IJ ASDIR 09/11/16 Acetaminophen [Tylenol .Regular 650 mg PO Q4H PRN #0 tablet 06/09/17 Strength -] Hydroxyurea [Hydrea 500Mg Capsule 500 mg PO DAILY #30 cap 06/09/17 -] Lactobacillus Acidophilus 1 each PO DAILY 08/11/17 [Probiotic] Lidocaine 5% Patch 1 patch TP DAILY 08/11/17 Propylene Glycol/Peg 400 [Systane 1 drop OP DAILY 08/11/17 Ultra 0.4-0.3% Eye Drp] Sotalol HCl [Betapace -] 120 mg PO BID 08/11/17 Enoxaparin [Lovenox -] 80 mg SQ DAILY #0 syringe 08/21/17 Fentanyl Patch Waste [Duragesic 1 each TD PRN PRN #0 each 08/21/17 Patch Waste] Lidocaine 5% Patch [Lidoderm -] 1 patch TP DAILY patch 08/21/17 Polyethylene Glycol 3350 [Miralax 17 gm PO DAILY PRN #0 bottle 08/21/17 119 gm Btl -] Sennosides [Senna -] 2 tab PO HS tablet 08/21/17 Furosemide [Lasix -] 20 mg PO DAILY #30 tablet 08/22/17 Sulfamethoxazole/Trimethoprim 1 tab PO BID #6 tablet 08/23/17 [Bactrim Ds -] Satellite Physical Exam - Physical Examination Vital Signs: Vital Signs Period Temp Pulse Resp BP Sys/Conde Pulse Ox Last 24 Hr 97.4 F 60 20 135/76 General Appearance: Well Developed, Alert & Oriented x3 Lung: Clear to auscultation Heart: Regular rate & rhythm, Normal S1, Normal S2 Abdomen: Soft, No tenderness Extremities: No edema Satellite Impression/Plan - Impression/Plan Impression: for 2 U PRBC. CBC monitoring
[2018-01-16 08:05] LABS: HEMATOCRIT 30.5 % (32.4-45.2); MCH 27.8 pg (25.7-33.7); MCHC 33.1 g/dl (32.0-36.0); MEAN CELL VOLUME 83.8 fl (80-96); PLATELET COUNT 405 K/MM3 (134-434); RBC 3.64 M/mm3 (3.60-5.2); RDW 15.4 % (11.6-15.6); WHITE BLOOD COUNT 4.2 K/mm3 (4.0-10.0)
[2018-01-16 08:17] LABS: HEMOGLOBIN 10.1 GM/dL (10.7-15.3)
[2018-01-16 10:58] VITALS: BP 143/62; PULSE 56; TEMP 98.2
== END 2018-01-16 11:01 | disposition home or self-care (01) ==
LOC: JONCBLOOD 12:46 → J7W 12:48 → JONCBLOOD 01-16 11:01
PROVIDERS: ATTEND Internal Medicine Hematology & Oncology
PROC: 30233N1 Transfusion of Nonautologous Red Blood Cells into Peripheral Vein, Percutaneous Approach (ICD-10-PCS; principal; 2018-01-15)
DX: C94.6 Myelodysplastic disease, not elsewhere classified (principal); D64.9 Anemia, unspecified; C88.4 Extranodal marginal zone B-cell lymphoma of mucosa-associated lymphoid tissue [MALT-lymphoma]
CPT/HCPCS: 36415; 36430; 80053; 85027; 86850; 86900; 86901; 86922; P9038; P9058

== ENCOUNTER 2018-03-07 09:47 | Day surgery (SDC) | payer OTHER, MEDICARE ==
[2018-03-07 11:04] VITALS: BMI 23.8
[2018-03-07 11:09] LABS: HEMATOCRIT 23.4 % (32.4-45.2); HEMOGLOBIN 7.7 GM/dL (10.7-15.3); MCH 27.5 pg (25.7-33.7); MCHC 32.8 g/dl (32.0-36.0); MEAN CELL VOLUME 83.9 fl (80-96); MEAN PLT VOLUME 8.5 fl (7.5-11.1); PLATELET COUNT 448 K/MM3 (134-434); RBC 2.78 M/mm3 (3.60-5.2); RDW 16.9 % (11.6-15.6)
[2018-03-07 11:53] LABS: ALBUMIN 4.4 g/dl (3.4-5.0); ANION GAP 6 (8-16); BILIRUBIN,TOTAL 0.9 mg/dL (0.2-1.0); BLOOD UREA NITROGEN 36 mg/dL (7-18); CALCIUM 9.5 mg/dL (8.5-10.1); CHLORIDE 95 mmol/L (98-107); CO2 30 mmol/L (21-32); CREATININE 1.3 mg/dL (0.55-1.02); GLUCOSE,RANDOM 104 mg/dL (74-106); POTASSIUM 4.3 mmol/L (3.5-5.1); SGOT/AST 18 U/L (15-37); SGPT/ALT 17 U/L (12-78); SODIUM 131 mmol/L (136-145); TOT PROT 7.5 g/dl (6.4-8.2)
[2018-03-07 11:54] LABS: ALK PHOS 88 U/L (45-117)
[2018-03-07] MEDS ORDERED: FUROSEMIDE 40 MG/4 ML INJECTABLE VIAL IVPB ONE ×2 (13:00→16:30)
--- NOTE | 2018-03-07 14:36 | HP ---
Admitting History and Physical - Admission Chief Complaint: Anemia History of Present Illness: MDS portal vein thrombosis History Source: Patient Limitations to Obtaining History: No Limitations - Past Medical History Cardiovascular: Yes: AFIB, HTN, Other (Mitral Valve Prolapse) Gastrointestinal: Yes: GERD Renal/: Yes: Neurogenic Bladder, UTI ...: No Heme/Onc: Yes: Anemia, Myeloproliferative Synd Psych: Yes: Anxiety ENT: Yes: Allergic Rhinitis, Sinusitis Endocrine: Yes: Other (Hashimotos thyroiditis) - Past Surgical History Past Surgical History: Yes: Appendectomy, Cataract Removal (bilateral), Oopherectomy (bilateral), Tonsillectomy - Advance Directives Advance Directives: Yes: Living Will, Health Care Proxy - Smoking History Smoking history: Former smoker Have you smoked in the past 12 months: No Aproximately how many cigarettes per day: 2 If you are a former smoker, when did you quit?: 60 years ago - Alcohol/Substance Use Hx Alcohol Use: No - Social History ADL: Independent 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 History of Recent Travel: No Home Medications - Allergies Allergies/Adverse Reactions: Allergies Allergy/AdvReac Type Severity Reaction Status Date / Time propoxyphene napsylate Allergy Severe Swelling Verified 08/11/17 08:32 [From Darvocet-N 100] aspirin Allergy Difficulty Verified 08/11/17 08:32 Breathing hydromorphone HCl Allergy Verified 08/11/17 08:32 [From Dilaudid] - Home Medications Home Medications: Ambulatory Orders Amlodipine Besylate [Norvasc -] 10 mg PO DAILY #0 tablet 05/13/13 Clonazepam [Klonopin] 0.25 mg PO TID 04/21/14 Ranitidine [Zantac -] 150 mg PO BID 06/10/15 Cholecalciferol (Vitamin D3) [Vitamin D3] 2,000 unit PO DAILY 03/22/16 Hydroxyurea [Hydrea 500Mg Capsule -] 500 mg PO DAILY #30 cap 06/09/17 Lactobacillus Acidophilus [Probiotic] 1 each PO DAILY 08/11/17 Propylene Glycol/Peg 400 [Systane Ultra 0.4-0.3% Eye Drp] 1 drop OP HS 08/11/17 Enoxaparin [Lovenox -] 70 mg SQ DAILY 03/07/18 Fentanyl Patch Waste [Duragesic Patch Waste] 25 mcg Q72H 03/07/18 Furosemide [Lasix -] 60 mg PO DAILY 03/07/18 Oxycodone HCl/Acetaminophen [Percocet 5-325 mg Tablet] 0.5 tab PO Q6H PRN Sotalol HCl [Sotalol] 120 mg PO DAILY 03/07/18 Family Disease History - Family Disease History Family Disease History: Other: Father (CVA) Review of Systems - Review of Systems Constitutional: reports: Weakness. denies: Fever, Loss of Appetite, Night Sweats, Unintentional Wgt. Loss Eyes: denies: Blurred Vision, Double Vision, Eye Pain, Photophobia, Recent Change in Vision HENT: denies: Epistaxis, Throat Pain Neck: denies: Decreased ROM, Lumps, Pain on Movement, Stiffness, Swollen Glands , Tenderness Cardiovascular: reports: Shortness of Breath. denies: Chest Pain, Palpitations Respiratory: reports: Exercise Intolerance, SOB on Exertion. denies: Hemoptysis , Wheezing Gastrointestinal: reports: Constipation. denies: Diarrhea, Dysphagia, Melena, Nausea, Vomiting Breasts: reports: No Symptoms Reported Musculoskeletal: reports: Back Pain Integumentary: reports: Rash. denies: Blister Neurological: reports: No Symptoms Endocrine: reports: No Symptoms Hematology/Lymphatic: reports: Easily Bruised Psychiatric: reports: No Symptoms Physical Examination Vital Signs: Vital Signs Temperature 98.6 F 03/07/18 10:57 Pulse Rate 53 L 03/07/18 10:57 Respiratory Rate 16 03/07/18 10:57 Blood Pressure 131/45 03/07/18 10:57 O2 Sat by Pulse Oximetry (%) Constitutional: Yes: No Distress, Mild Distress Eyes: Yes: PERRL. No: Diplopia, Ptosis, Sclera Icterus HENT: Yes: Atraumatic, Normocephalic. No: Hoarseness, Tonsillar Exudate Neck: No: Decreased ROM, Lymphadenopathy Cardiovascular: Yes: Other (aatrial fib) Respiratory: Yes: Regular, CTA Bilaterally Gastrointestinal: Yes: Normal Bowel Sounds, Soft. No: Hepatomegaly, Splenomegaly Renal/: No: CVA Tenderness - Left, CVA Tenderness - Right Breast(s): Yes: WNL, Left, Right Musculoskeletal: Yes: Back Pain Extremities: No: Calf Tenderness, Deformity Edema: No Integumentary: Yes: Erythema Neurological: Yes: WNL ...Motor Strength: WNL Psychiatric: Yes: WNL Labs: CBC, BMP 03/07/18 10:40 03/07/18 10:45 Problem List - Problems (1) Essential (hemorrhagic) thrombocythemia Assessment/Plan: ET under therapy- transfusin dependent Symptomatic anemia For transfusion of packed cells. Code(s): D47.3 - ESSENTIAL (HEMORRHAGIC) THROMBOCYTHEMIA
[2018-03-07] MEDS ORDERED: oxyCODONE HCL 5 MG TABLET PO PRN (19:41)
[2018-03-07] MEDS ORDERED: SOTALOL HCL 80 MG TABLET (FP) PO ONE (22:00)
--- NOTE | 2018-03-08 10:14 | PN ---
Progress Note (short form) - Note Progress Note: Seen in follow up. No new complaints. Received 2 units RBCs overnight without incident - feeling well this morning. Inpatient Meds reviewed. Current Medications Generic Name Dose Route Start Last Admin Trade Name Gaston PRN Reason Stop Dose Admin Oxycodone HCl 5 mg 03/07/18 19:41 03/07/18 19:48 Roxicodone - PO 2.5 mg Q6H PRN Administration PAIN LEVEL 4 - 6 On exam: Last Vital Signs Temp Pulse Resp BP Pulse Ox 99.2 F 56 L 18 155/59 96 03/08/18 05:48 03/08/18 05:48 03/08/18 05:48 03/08/18 05:48 03/07/18 21:00 General: In no acute distress. Extremities: No pallor or icterus. Chest:breathing comfortably Abdomen: Non-distended Neuro: Alert, oriented, non-focal. Pre-transfusion labs CBC, BMP 03/07/18 10:40 03/07/18 10:45 Assessment. 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 S/p transfusion overnight. Post transfusion Hb pending. Can go home. Follow up as outpatient.
[2018-03-08 10:28] VITALS: BP 123/47; PULSE 54; TEMP 98.9
[2018-03-08 10:38] LABS: BASO % 1.5 % (0-2.0); EOS % 2.8 % (0-4.5); HEMATOCRIT 28.8 % (32.4-45.2); HEMOGLOBIN 9.7 GM/dL (10.7-15.3); LYMPH % 17.9 % (8-40); MCH 28.4 pg (25.7-33.7); MCHC 33.5 g/dl (32.0-36.0); MEAN CELL VOLUME 84.7 fl (80-96); MEAN PLT VOLUME 7.5 fl (7.5-11.1); MONO % 10.3 % (3.8-10.2); NEUT % 67.5 % (42.8-82.8); PLATELET COUNT 287 K/MM3 (134-434); RDW 15.6 % (11.6-15.6); WHITE BLOOD COUNT 4.8 K/mm3 (4.0-10.0)
== END 2018-03-08 11:24 | disposition home or self-care (01) ==
LOC: J8W 09:47 → JONCBLOOD 09:47
PROVIDERS: ATTEND Internal Medicine Hematology & Oncology
PROC: 30233N1 Transfusion of Nonautologous Red Blood Cells into Peripheral Vein, Percutaneous Approach (ICD-10-PCS; principal; 2018-03-07)
DX: C94.6 Myelodysplastic disease, not elsewhere classified (principal); E06.3 Autoimmune thyroiditis; I48.91 Unspecified atrial fibrillation; D47.3 Essential (hemorrhagic) thrombocythemia
CPT/HCPCS: 36415; 36430; 80053; 82607; 82747; 85014; 85025; 85027; 86850; 86900; 86901; 86922; P9038; P9058

== ENCOUNTER 2018-04-16 12:07 | Day surgery (SDC) | payer OTHER, MEDICARE ==
[2018-04-16 13:23] LABS: BASO % 2.6 % (0-2.0); EOS % 3.9 % (0-4.5); HEMATOCRIT 20.9 % (32.4-45.2); LYMPH % 18.2 % (8-40); MCH 26.9 pg (25.7-33.7); MCHC 31.3 g/dl (32.0-36.0); MEAN CELL VOLUME 86.2 fl (80-96); MEAN PLT VOLUME 8.5 fl (7.5-11.1); MONO % 14.8 % (3.8-10.2); NEUT % 60.5 % (42.8-82.8); PLATELET COUNT 336 K/MM3 (134-434); RBC 2.43 M/mm3 (3.60-5.2); RDW 17.6 % (11.6-15.6); WHITE BLOOD COUNT 3.5 K/mm3 (4.0-10.0)
--- NOTE | 2018-04-16 13:28 | HP ---
Satellite PMH - Chief Complaint History of Present Illness: Here for PRBCs. Pt with h/o MDS> History Source: Patient, Medical Record - Past Medical History Allergies/Adverse Reactions: Allergies Allergy/AdvReac Type Severity Reaction Status Date / Time propoxyphene napsylate Allergy Severe Swelling Verified 08/11/17 08:32 [From Darvocet-N 100] aspirin Allergy Difficulty Verified 08/11/17 08:32 Breathing hydromorphone HCl Allergy Verified 08/11/17 08:32 [From Dilaudid] Cardiovascular: Yes: AFIB, HTN, Other (Mitral Valve Prolapse) Gastrointestinal: Yes: GERD Renal/: Yes: Neurogenic Bladder, UTI Heme/Onc: Yes: Anemia, Myeloproliferative Synd ENT: Yes: Allergic Rhinitis, Sinusitis Endocrine: Yes: Other (Hashimotos thyroiditis) - Current Medications Current Medications: Home Medications Medication Instructions Recorded Amlodipine Besylate [Norvasc -] 10 mg PO DAILY #0 tablet 05/13/13 Clonazepam [Klonopin] 0.25 mg PO TID 04/21/14 Ranitidine [Zantac -] 150 mg PO BID 06/10/15 Cholecalciferol (Vitamin D3) 2,000 unit PO DAILY 03/22/16 [Vitamin D3] Hydroxyurea [Hydrea 500Mg Capsule 500 mg PO DAILY #30 cap 06/09/17 -] Lactobacillus Acidophilus 1 each PO DAILY 08/11/17 [Probiotic] Propylene Glycol/Peg 400 [Systane 1 drop OP HS 08/11/17 Ultra 0.4-0.3% Eye Drp] Enoxaparin [Lovenox -] 70 mg SQ DAILY 03/07/18 Fentanyl Patch Waste [Duragesic 25 mcg Q72H 03/07/18 Patch Waste] Furosemide [Lasix -] 60 mg PO DAILY 03/07/18 Oxycodone HCl/Acetaminophen 0.5 tab PO Q6H PRN 03/07/18 [Percocet 5-325 mg Tablet] Sotalol HCl [Sotalol] 120 mg PO BID 03/07/18 Satellite Physical Exam - Physical Examination General Appearance: Alert & Oriented x3 Lung: Clear to auscultation Heart: Regular rate & rhythm Abdomen: Soft, No tenderness Extremities: No edema Satellite Impression/Plan - Impression/Plan Impression: for prbcs today
[2018-04-16 13:46] LABS: HEMOGLOBIN 6.5 GM/dL (10.7-15.3)
[2018-04-16 13:47] LABS: ALBUMIN 3.6 g/dl (3.4-5.0); ANION GAP 10 (8-16); BLOOD UREA NITROGEN 28 mg/dL (7-18); CALCIUM 10.8 mg/dL (8.5-10.1); CHLORIDE 96 mmol/L (98-107); CO2 27 mmol/L (21-32); GLUCOSE,RANDOM 123 mg/dL (74-106); POTASSIUM 4.2 mmol/L (3.5-5.1); SODIUM 133 mmol/L (136-145)
[2018-04-16 13:50] LABS: ALK PHOS 59 U/L (45-117); BILIRUBIN,TOTAL 0.8 mg/dL (0.2-1.0); CREATININE 1.3 mg/dL (0.55-1.02); SGOT/AST 20 U/L (15-37); SGPT/ALT 20 U/L (12-78); TOT PROT 6.4 g/dl (6.4-8.2)
[2018-04-16 15:06] LABS: ANISOCYTOSIS 1+; MACROCYTOSIS 1+; OVALOCYTE 1+; PLATELET ESTIMATE NORMAL
[2018-04-16] MEDS ORDERED: POTASSIUM CHLORIDE TABS 20 MEQ TABLET.ER (FP) PO ONE ×2 (16:00→20:15)
[2018-04-16] MEDS ORDERED: FUROSEMIDE 40 MG/4 ML INJECTABLE VIAL IVPUSH ONE ×2 (16:00→20:15)
[2018-04-16] MEDS ORDERED: clonazePAM 0.5 MG TABLET PO PRN (21:58)
[2018-04-16] MEDS ORDERED: oxyCODONE HCL 5 MG TABLET PO PRN (22:12)
[2018-04-16] MEDS: SOTALOL HCL 80 MG TABLET (FP) PO SCH (22:18)
[2018-04-17 00:56] VITALS: BP 139/58; PULSE 59; TEMP 98.8
[2018-04-17 09:03] LABS: HEMATOCRIT 26.6 % (32.4-45.2); HEMOGLOBIN 9.1 GM/dL (10.7-15.3); MCH 28.7 pg (25.7-33.7); MCHC 34.1 g/dl (32.0-36.0); MEAN CELL VOLUME 84.1 fl (80-96); MEAN PLT VOLUME 7.4 fl (7.5-11.1); PLATELET COUNT 254 K/MM3 (134-434); RBC 3.16 M/mm3 (3.60-5.2); RDW 15.5 % (11.6-15.6); WHITE BLOOD COUNT 3.8 K/mm3 (4.0-10.0)
[2018-04-17] MEDS: SOTALOL HCL 80 MG TABLET (FP) PO SCH (10:18)
[2018-04-17] MEDS ORDERED: ENOXAPARIN NA (PORCINE) 80 MG/0.8 ML DISP.SYRIN SQ ONE (13:00)
--- NOTE | 2018-04-17 19:04 | PN ---
Progress Note (short form) - Note Progress Note: called patients daughter and discussed her overall frail status and to continue conservative management
== END 2018-04-17 13:12 | disposition home or self-care (01) ==
LOC: JONCBLOOD 12:07 → J7W 12:09 → JONCBLOOD 04-17 13:12
PROVIDERS: ATTEND Internal Medicine Hematology & Oncology
PROC: 30233N1 Transfusion of Nonautologous Red Blood Cells into Peripheral Vein, Percutaneous Approach (ICD-10-PCS; principal; 2018-04-16)
DX: D46.9 Myelodysplastic syndrome, unspecified (principal); D46.4 Refractory anemia, unspecified; E06.3 Autoimmune thyroiditis; I48.91 Unspecified atrial fibrillation
CPT/HCPCS: 36415; 36430; 80053; 85025; 85027; 86850; 86900; 86901; 86922; P9038; P9058

== ENCOUNTER 2018-06-03 16:47 | Day surgery (SDC) | payer OTHER, MEDICARE ==
--- NOTE | 2018-06-03 17:28 | HP ---
Admitting History and Physical - Admission Chief Complaint: Anemia. 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 admitted for transfusion therapy History Source: Patient, Medical Record Limitations to Obtaining History: No Limitations - Past Medical History Cardiovascular: Yes: AFIB, HTN, Other (Mitral Valve Prolapse) Gastrointestinal: Yes: GERD Renal/: Yes: Neurogenic Bladder, UTI Heme/Onc: Yes: Anemia, Myeloproliferative Synd Psych: Yes: Anxiety ENT: Yes: Allergic Rhinitis, Sinusitis Endocrine: Yes: Other (Hashimotos thyroiditis) - Past Surgical History Past Surgical History: Yes: Appendectomy, Cataract Removal (bilateral), Oopherectomy (bilateral), Tonsillectomy - Smoking History Smoking history: Never smoked Have you smoked in the past 12 months: No Aproximately how many cigarettes per day: 2 If you are a former smoker, when did you quit?: 60 years ago - Alcohol/Substance Use Hx Alcohol Use: No - Social History ADL: Support Services 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 History of Recent Travel: No Home Medications - Allergies Allergies/Adverse Reactions: Allergies Allergy/AdvReac Type Severity Reaction Status Date / Time propoxyphene napsylate Allergy Severe Swelling Verified 04/25/18 18:10 [From Darvocet-N 100] aspirin Allergy Difficulty Verified 04/25/18 18:10 Breathing hydromorphone HCl Allergy Verified 04/25/18 18:10 [From Dilaudid] - Home Medications Home Medications: Ambulatory Orders Amlodipine Besylate [Norvasc -] 10 mg PO DAILY #0 tablet 05/13/13 Clonazepam [Klonopin] 0.25 mg PO TID 04/21/14 Ranitidine [Zantac -] 150 mg PO BID 06/10/15 Hydroxyurea [Hydrea 500Mg Capsule -] 500 mg PO DAILY #30 cap 06/09/17 Enoxaparin [Lovenox -] 70 mg SQ DAILY 03/07/18 Fentanyl Patch Waste [Duragesic Patch Waste] 12.5 mcg TP Q72H 03/07/18 Sotalol HCl [Sotalol] 120 mg PO BID 03/07/18 Movantik 12.5 mg PO DAILY 04/16/18 Acetaminophen [Tylenol .Extra-Strength -] 500 mg PO Q6H PRN tablet 05/08/18 Cefuroxime Axetil [Ceftin -] 500 mg PO BID 5 Days #10 tablet 05/08/18 Cyanocobalamin [Vitamin B12 -] 1,000 mcg PO DAILY tablet 05/08/18 Cyclobenzaprine HCl [Flexeril -] 5 mg PO DAILY tablet 05/08/18 FENTANYL 12mcg PATCH [DURAGESIC 12mcg PATCH -] 1 patch TD Q72H patch.td72 MDD 12 05/08/18 Fentanyl Patch Waste [Duragesic Patch Waste] 1 each TD PRN PRN each 05/08/18 Lidocaine 2% Viscous Oral [Xylocaine 2% Viscous Oral -] 20 ml MM QID PRN ud 03/21 Polyethylene Glycol 3350 [Miralax 119 gm Btl -] 17 gm PO BID bottle 05/08/18 Sennosides [Senna -] 1 tab PO HS tablet 05/08/18 oxyCODONE HCL [Roxicodone -] 5 mg PO Q4H PRN tablet MDD 30 05/08/18 Family Disease History - Family Disease History Family Disease History: Other: Father (CVA) Review of Systems - Review of Systems Constitutional: reports: Loss of Appetite, Malaise, Unintentional Wgt. Loss HENT: denies: Difficult Swallowing, Epistaxis, Other Neck: denies: Pain on Movement Cardiovascular: reports: Palpitations, Shortness of Breath Respiratory: reports: SOB, SOB on Exertion. denies: Hemoptysis Gastrointestinal: denies: Abdominal Pain, Nausea Genitourinary: reports: Other (UTI) Breasts: reports: No Symptoms Reported Musculoskeletal: reports: Back Pain, Decreased ROM Integumentary: reports: Other (decubitus - mid back) Neurological: reports: No Symptoms Endocrine: reports: No Symptoms Hematology/Lymphatic: denies: Easily Bruised, Excessive Bleeding Psychiatric: reports: No Symptoms, Anxiety Physical Examination Constitutional: Yes: Anxious Eyes: Yes: PERRL HENT: Yes: Atraumatic, Normocephalic. No: Epistaxis Neck: Yes: Supple Cardiovascular: Yes: Pulse Irregular Respiratory: Yes: Diminished Gastrointestinal: Yes: Normal Bowel Sounds, Soft Renal/: No: CVA Tenderness - Left, CVA Tenderness - Right Breast(s): Yes: WNL, Left, Right Musculoskeletal: Yes: Back Pain, Muscle Pain, Muscle Weakness Extremities: No: Calf Tenderness Edema: LLE: 2+, RLE: 2+ Integumentary: Yes: Pressure Ulcer. 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 Transfusion dependent- For transfusion therapy.
[2018-06-03] MEDS ORDERED: oxyCODONE HCL 5 MG TABLET PO PRN (17:35)
[2018-06-03] MEDS ORDERED: LIDOCAINE VISCOUS 2% ORAL/TOP 20 ML UNIT-DOSE CUP MM PRN (17:37)
[2018-06-03] MEDS ORDERED: clonazePAM 0.5 MG TABLET PO PRN (17:43)
[2018-06-03] MEDS ORDERED: RIVAROXABAN 20 MG TABLET PO SCH (18:00)
[2018-06-03 19:06] LABS: BASO % 1.7 % (0-2.0); EOS % 3.1 % (0-4.5); LYMPH % 16.3 % (8-40); MCH 26.9 pg (25.7-33.7); MCHC 31.6 g/dl (32.0-36.0); MEAN CELL VOLUME 85.2 fl (80-96); MEAN PLT VOLUME 8.6 fl (7.5-11.1); MONO % 18.9 % (3.8-10.2); PLATELET COUNT 578 K/MM3 (134-434); RDW 16.8 % (11.6-15.6); WHITE BLOOD COUNT 6.1 K/mm3 (4.0-10.0)
[2018-06-03 19:12] LABS: HEMATOCRIT 21.3 % (32.4-45.2); HEMOGLOBIN 6.7 GM/dL (10.7-15.3)
[2018-06-03 20:56] LABS: ANISOCYTOSIS 2+; MACROCYTOSIS 1+
[2018-06-03 20:57] LABS: OVALOCYTE 1+; PLATELET ESTIMATE MOD INCREASED; TARGET CELLS 1+
[2018-06-03] MEDS: SOTALOL HCL 80 MG TABLET (FP) PO SCH (22:08)
[2018-06-03] MEDS: RANITIDINE HCL 150 MG TABLET (FP) PO SCH (22:08)
[2018-06-03] MEDS: NYSTATIN 500,000 UNITS TABLET PO SCH (22:08)
[2018-06-03] MEDS: amLODIPine BESYLATE 10 MG TABLET (FP) PO SCH (22:08)
[2018-06-03] MEDS: POLYETHYLENE GLYCOL 3350 119 GM BTL PO SCH (22:12)
[2018-06-03] MEDS: SILVER SULFADIAZINE 1% TOP CREAM 50 GM JAR TP SCH (22:12)
[2018-06-03] MEDS ORDERED: FUROSEMIDE 40 MG/4 ML INJECTABLE VIAL IVPUSH ONE (22:15)
[2018-06-04] MEDS: NYSTATIN 500,000 UNITS TABLET PO SCH ×2 (06:40→13:51)
[2018-06-04] MEDS ORDERED: PT OWN MED DRAWER 7, Y5N ONE (09:17)
[2018-06-04] MEDS: amLODIPine BESYLATE 10 MG TABLET (FP) PO SCH (09:26)
[2018-06-04] MEDS: RANITIDINE HCL 150 MG TABLET (FP) PO SCH (09:26)
[2018-06-04] MEDS: SOTALOL HCL 80 MG TABLET (FP) PO SCH (09:26)
[2018-06-04] MEDS: SILVER SULFADIAZINE 1% TOP CREAM 50 GM JAR TP SCH (09:27)
[2018-06-04] MEDS: POLYETHYLENE GLYCOL 3350 119 GM BTL PO SCH ×2 (09:27→10:06)
[2018-06-04 09:28] LABS: BASO % 1.9 % (0-2.0); EOS % 3.6 % (0-4.5); HEMOGLOBIN 9.8 GM/dL (10.7-15.3); LYMPH % 12.4 % (8-40); MCH 28.3 pg (25.7-33.7); MCHC 33.6 g/dl (32.0-36.0); MEAN CELL VOLUME 84.2 fl (80-96); MEAN PLT VOLUME 7.8 fl (7.5-11.1); NEUT % 63.1 % (42.8-82.8); PLATELET COUNT 365 K/MM3 (134-434); RBC 3.45 M/mm3 (3.60-5.2); RDW 15.5 % (11.6-15.6); WHITE BLOOD COUNT 5.4 K/mm3 (4.0-10.0)
[2018-06-04] MEDS ORDERED: SULFAMETHOXAZOLE/TRIMETHOPRIM 800MG/160MG D.S. TABLET PO SCH (10:00)
[2018-06-04 13:21] LABS: ALBUMIN 3.5 g/dl (3.4-5.0); ANION GAP 9 (8-16); BLOOD UREA NITROGEN 34 mg/dL (7-18); CALCIUM 9.4 mg/dL (8.5-10.1); CHLORIDE 95 mmol/L (98-107); CO2 27 mmol/L (21-32); CREATININE 1.3 mg/dL (0.55-1.02); GLUCOSE,RANDOM 102 mg/dL (74-106); POTASSIUM 4.5 mmol/L (3.5-5.1); SGOT/AST 22 U/L (15-37); SGPT/ALT 17 U/L (12-78); SODIUM 131 mmol/L (136-145)
[2018-06-04 13:22] LABS: ALK PHOS 94 U/L (45-117); BILIRUBIN,TOTAL 1.6 mg/dL (0.2-1.0); TOT PROT 6.2 g/dl (6.4-8.2)
[2018-06-04 14:04] VITALS: BP 137/65; PULSE 78; TEMP 98.8
--- NOTE | 2018-06-04 14:22 | PN ---
Progress Note (short form) - Note Progress Note: Patient seen and examined Hb- 6.7 g-- 9.8 g s/p 2 units Lasix diuresis Last Vital Signs Temp Pulse Resp BP Pulse Ox 98.8 F 78 18 137/65 95 06/04/18 14:01 06/04/18 14:01 06/04/18 14:01 06/04/18 14:01 06/04/18 10:00 HEENT: ROSITA, EOM Intact Oropharynx: No thrush, No mucositis Neck: Supple Nodes: Without adenopathy Breasts: Without masses Cor: A.F. Lungs: diminished breath sounds Abd: Soft, Normal bowel sounds, No organomegaly Ext:LE edema Skin: Decubitus thoracic area Kyphosis CBC, BMP 06/04/18 09:10 06/04/18 12:30 Current Medications Generic Name Dose Route Start Last Admin Trade Name Freq PRN Reason Stop Dose Admin Amlodipine Besylate 10 mg 06/03/18 18:00 06/04/18 09:26 Norvasc - PO 10 mg DAILY MARGARITA Administration Clonazepam 0.5 mg 06/03/18 17:43 06/03/18 22:15 Klonopin - PO 0.25 mg TID PRN Administration ANXIETY Hydroxyurea 500 mg 06/05/18 10:00 Hydrea - PO DAILY MARGARITA Lidocaine HCl 20 ml 06/03/18 17:37 Xylocaine 2% Viscous Oral - MM Q6H PRN ORAL PAIN/MOUTH SORES Nystatin 500,000 unit 06/03/18 22:00 06/04/18 13:51 Nystatin PO Not Given TID MARGARITA Oxycodone HCl 5 mg 06/03/18 17:35 Roxicodone - PO Q6H PRN PAIN LEVEL 6-10 Polyethylene Glycol 17 gm 06/03/18 18:00 06/04/18 10:06 Miralax (For Daily Use) - PO Not Given DAILY MARGARITA Ranitidine HCl 150 mg 06/03/18 18:00 06/04/18 09:26 Zantac - PO 150 mg DAILY MARGARITA Administration Rivaroxaban 20 mg 06/03/18 18:00 06/03/18 22:08 Xarelto - PO 20 mg DAILY@1800 MARGARITA Administration Silver Sulfadiazine 1 applic 06/03/18 18:00 06/04/18 09:27 Silvadene - TP 1 applic DAILY MARGARITA Administration Sotalol HCl 80 mg 06/03/18 22:00 06/04/18 09:26 Betapace - PO 80 mg BID MARGARITA Administration Trimethoprim/Sulfamethoxazole 1 each 06/04/18 10:00 06/04/18 09:27 Bactrim Ds - PO 1 each DAILY MARGARITA Administration MDS/MPD Anemia S/P 2 units of packed cells For discharge.
[2018-06-05] MEDS ORDERED: HYDROXYUREA 500 MG CAPSULE PO SCH (10:00)
== END 2018-06-04 17:30 ==
LOC: JONCBLOOD 16:47 → J7W 16:48 → JONCBLOOD 06-04 17:30
PROVIDERS: ATTEND Internal Medicine Hematology & Oncology
PROC: 30233N1 Transfusion of Nonautologous Red Blood Cells into Peripheral Vein, Percutaneous Approach (ICD-10-PCS; principal; 2018-06-03)
DX: D46.4 Refractory anemia, unspecified (principal); I10 Essential (primary) hypertension; I48.91 Unspecified atrial fibrillation; E06.3 Autoimmune thyroiditis
CPT/HCPCS: 36415; 36430; 80053; 85025; 86850; 86900; 86901; 86922; P9038; P9058

== ENCOUNTER 2018-06-27 19:50 | Inpatient (IN) | payer OTHER, MEDICARE ==
--- NOTE | 2018-06-27 19:59 | PDOC ---
History of Present Illness - General Stated Complaint: FALL Time Seen by Provider: 06/27/18 19:58 History Source: Patient, EMS, Family Exam Limitations: Clinical Condition - History of Present Illness Initial Comments: 06/27/18 20:02 87F PMH of MPS/MDS, MALT lymphoma, portal vein thrombosis, HTN, anemia, CHF, A. Fib on Xarelto, Tucker's thyroiditis, and GERD, presents to the ER via EMS s/ p fall. Per EMS the patient was trying to sit down and the chair slid. She tried to catch herself by grabbing on the table but she still fell. She fell on her left side and is currently complaining of left shoulder and right side/rib pain. She was down for about 20 minutes per patient and she did not call anyone despite having a life alert bracelet. Patient was recently admitted to this hospital for a night for transfusion and was discharged on 06/18/2018. She denies nausea vomitng fever chills chest pain or shortness of breath. Patient states she has an old T12 fracture and has a sacral decubitus ulcer that her FENCE BUILDER is taking care of. She endorses dysuria and states "I think I have a UTI." She denies LOC and denies hitting her head. She walks at home with a walker and per family she has been doing well with it. Past History - Travel Traveled outside of the country in the last 30 days: No Close contact w/someone who was outside of country & ill: No - Past Medical History Allergies/Adverse Reactions: Allergies Allergy/AdvReac Type Severity Reaction Status Date / Time propoxyphene napsylate Allergy Severe Swelling Verified 06/17/18 12:43 [From Darvocet-N 100] aspirin Allergy Difficulty Verified 06/17/18 12:43 Breathing hydromorphone HCl Allergy Verified 06/17/18 12:43 [From Dilaudid] Home Medications: Ambulatory Orders Amino Acids/Protein Hydrolys [Pro-Stat Sugar Free Liquid Pkt] 30 ml PO DAILY Amlodipine Besylate 10 mg PO DAILY 06/18/18 Cyanocobalamin (Vitamin B-12) [B-12] 500 mcg PO DAILY 06/18/18 Docusate Sodium [Colace -] 100 mg PO BID 06/18/18 Hydroxyurea 500 mg PO DAILY 06/18/18 Naloxegol Oxalate [Movantik] 12.5 mg PO HS 06/18/18 Polyethylene Glycol 3350 [Miralax 255 gm Btl -] 17 gm PO BID 06/18/18 Ranitidine [Zantac -] 150 mg PO BID 06/18/18 Rivaroxaban [Xarelto -] 20 mg PO DAILY 06/18/18 Saccharomyces Boulardii [Probiotic] 250 mg PO BID 06/18/18 Sennosides [Senna Lax] 8.6 mg PO PRN PRN 06/18/18 Sotalol HCl [Betapace] 120 mg PO BID 06/18/18 Zinc Sulfate 220 mg PO DAILY 06/18/18 Anemia: Yes (HIGH PLATELETS,freq transfusions) Asthma: No Cancer: Yes (lymphoma) Cardiac Disorders: Yes (AFIB, mvp) CVA: No COPD: No CHF: No Dementia: No Diabetes: No GI Disorders: Yes (esophageal reflux, GERD) Disorders: No HTN: Yes Hypercholesterolemia: No Liver Disease: No Seizures: No Thyroid Disease: No (Tucker's) - Surgical History Abdominal Surgery: Yes (BOTH OVARIES) Appendectomy: Yes Cardiac Surgery: Yes (Mitral Valve) Cholecystectomy: No Lung Surgery: No Neurologic Surgery: No Orthopedic Surgery: No - Immunization History Td Vaccination: Yes Immunization Up to Date: Yes - Suicide/Smoking/Psychosocial Hx Smoking Status: No Smoking History: Never smoked Years of Tobacco Use: 0 Have you smoked in the past 12 months: No Number of Cigarettes Smoked Daily: 2 If you are a former smoker, when did you quit?: 60 years ago Cigars Per Day: 0 'Breaking Loose' booklet given: 03/28/12 Hx Alcohol Use: No Drug/Substance Use Hx: No Substance Use Type: None Hx Substance Use Treatment: No Review of Systems - Review of Systems Able to Perform ROS?: Yes Is the patient limited Jamaican proficient: No Constitutional: Yes: Loss of Appetite HEENTM: No: Symptoms Reported, See HPI, Eye Pain, Blurred Vision, Tearing, Recent change in vision, Double Vision, Cataracts, Ear Pain, Ocular Prothesis, Ear Discharge, Nose Pain, Nose Congestion, Tinnitus, Nose Bleeding, Hearing Loss , Throat Pain, Throat Swelling, Mouth Pain, Dental Problems, Difficulty Swallowing, Mouth Swelling, Other Respiratory: No: Symptoms reported, See HPI, Cough, Orthopnea, Shortness of Breath, SOB with Exertion, SOB at Rest, Stridor, Wheezing, Productive cough, Hemoptysis, Other Cardiac (ROS): No: Symptoms Reported, See HPI, Chest Pain, Edema, Irregular Heart Rate, Lightheadedness, Palpitations, Syncope, Chest Tightness, Other ABD/GI: No: Symptoms Reported, See HPI, Abdominal Distended, Abd. Pain w/ defecation, Blood Streaked Bowels, Constipated, Diarrhea, Difficulty Swallowing , Nausea, Poor Appetite, Poor Fluid Intake, Rectal Bleeding, Vomiting, Indigestion, Abdominal cramping, Tarry Stools, Other : Yes: Dysuria, Frequency Musculoskeletal: Yes: Other (left shoulder pain right side pain ) Integumentary: No: Symptoms Reported, See HPI, Bruising, Change in Color, Change in Hair/Nails, Dryness, Erythema, Flushing, Lesions, Lumps, Pallor, Pruritus, Rash, Sweating, Other Neurological: No: Symptoms reported, See HPI, Headache, Numbness, Paresthesia, Pre-Existing Deficit, Seizure, Tingling, Tremors, Weakness, Unsteady Gait, Ataxia, Dizziness, Other Psychiatric: No: Anxiety, Depression, Frequent Crying, Stressors, Sleep Pattern Change, Emotional Problems, Mood Swings, Change in Appetite, Other Hematologic/Lymphatic: No: Symptoms Reported, See HPI, Anemia, Blood Clots, Easy Bleeding, Easy Bruising, Bleeding Diathesis, Lymph Node Abnormalities, Swollen Glands, Other *Physical Exam - Physical Exam General Appearance: Yes: Appropriately Dressed, Apparent Distress, Mild Distress (appears unconfortbale and in pain), Thin HEENT: positive: EOMI, JASWANT, Pale Conjunctivae Neck: positive: Trachea midline, Supple. negative: Tender Respiratory/Chest: positive: Chest Tender (on the right ), Crackles (fine crackles RLL. clear left lung field) Cardiovascular: positive: Regular Rhythm, Regular Rate, S1, S2, Edema Gastrointestinal/Abdominal: positive: Normal Bowel Sounds, Soft. negative: Tender Musculoskeletal: negative: CVA Tenderness, Vertebral Tenderness Extremity: positive: Tender (left shouler. passive and active ROM too painful to examine shoulder. right chest/side tenderness) Integumentary: positive: Dry, Warm Neurologic: positive: microbiology technologist II-XII NML intact, Fully Oriented, Alert, Normal Mood/ Affect, Normal Response Medical Decision Making - Medical Decision Making 06/27/18 20:30 87F with an extensive PMH presents s/p mechanical fall. will do: CBC CMP Mg Cardiac profile UA UCx EKG IVF Xrays of left shoulder bilateral rib series CXR head CT Reassess 06/27/18 21:05 Patient and family refusing labs. They explained she had labs done recently and they were fine. It was explained to them that we will be checking cardiac enzymes and another hemoglobin given she is on xarelto and history of frequenct transfusions. They still refused. Will do imaging 06/27/18 23:50 Imaging noted possible nondisplaced shoulder fracture on left. Possible 6th rib fracture on left. Patient is splinting and uncomfortable. concern if she does not get adequate pain control and take deep breaths she is at risk for pneumonia. CXR shows atelectasis will admit patient for pain control and continue observation. Discussed with daughters at bedside and they agree with plan but they do not want labs drawn. 06/28/18 00:02 Patient signed out to Dr. Gupta who has assumed care of the patient and will follow up all ancillary studies *DC/Admit/Observation/Transfer Diagnosis at time of Disposition: Failure to thrive in adult - Discharge Dispostion Condition at time of disposition: Guarded Decision to Admit order: Yes - Referrals Referrals: Lesli Barrios [Primary Care Provider] - - Patient Instructions - Post Discharge Activity
[2018-06-27 20:13] VITALS: BMI 22.1
--- NOTE | 2018-06-27 22:48 | PDOC ---
Attending Attestation - HPI HPI: 06/27/18 22:55 The patient is an 87 year old female with a significant past medical history of MPS/MDS, MALT lymphoma, portal vein thrombosis, HTN, anemia, CHF, AFib on Xarelto, Tucker's thyroiditis, and GERD, who presents to the ED via EMS with right shoulder and right rib pain s/p falling onto her left side while trying to sit in her chair today. She denies head trauma. As per the family at bedside , the patient's fall was witnessed by them through a camera which was set up to watch the patient. The patient denies chest pain, shortness of breath, headache and dizziness. The patient denies fever, chills, nausea, vomit, diarrhea and constipation. The patient denies dysuria, frequency, urgency and hematuria. - Physicial Exam PE: 06/27/18 22:57 GENERAL: (+) uncomfortable and frail appearance. cachectic. The patient is in no acute distress. HEAD: Normal with no signs of trauma. EYES: PERRLA, EOMI, sclera anicteric, conjunctiva clear. ENT: Ears normal, nares patent, oropharynx clear without exudates. Moist mucous membranes. NECK: Normal range of motion, supple without lymphadenopathy, JVD, or masses. LUNGS: (+) shallow breaths. faint lung sounds. clear to auscultation bilaterally. No wheezes, and no crackles. HEART:Regular rate and rhythm, normal S1 and S2 without murmur, rub or gallop. ABDOMEN: Soft, nontender, normoactive bowel sounds. No guarding, no rebound. No masses palpable. EXTREMITIES: Normal range of motion, no edema. No clubbing or cyanosis. No erythema, or tenderness. NEUROLOGICAL: Cranial nerves II through XII grossly intact. Normal speech. No focal neurological deficits. MUSCULOSKELETAL: Back non-tender to palpation, no CVA tenderness SKIN: Warm, Dry, normal turgor, no rashes or lesions noted. - Medical Decision Making 06/27/18 22:57 Documentation prepared by Nery Pederson, acting as medical instrument technician for Jhoana Blake MD <Nery Pederson - Last Filed: 06/27/18 22:55> - Resident Resident Name: Miguel Angel Britt - ED Attending Attestation I have performed the following: I have examined & evaluated the patient, The case was reviewed & discussed with the resident, I agree w/resident's findings & plan, Exceptions are as noted - Medical Decision Making Pt is an 87 yo F on s/p mechanical fall from standing height no LOC, no amnesia Pt was unable to get herself up to standing height She reports Right sided rib pain and left sided shoulder pain Pt is splinting and having difficulty taking deep breaths, i believe this is causing her to be hypoxia 06/28/18 00:55 06/28/18 01:01 DD: Fracture Mechanical fall vs. syncope vs anemia Would do: Labs CT head Xray ribs and left shoulder will give pain medications EKG: SR, rate of 64 bpm, Left axis deviation, no ST elevations or depressions, rhythmic change in baseline (?? related to respiratory rate?) Labs pending CT: no acute intracranial hemorrhage Pt admitted to hospitalist service <Jhoana Blake - Last Filed: 06/30/18 11:30>
[2018-06-27] MEDS ORDERED: ACETAMINOPHEN 500 MG TABLET (FP) PO ONE (22:50)
[2018-06-27] MEDS: SODIUM CHLORIDE 1,000 ML IV SCH (22:50)
--- NOTE | 2018-06-28 00:26 | HP ---
CHIEF COMPLAINT:S/P fall with back pain and shoulder pain PCP:Dr Najera HISTORY OF PRESENT ILLNESS: 87F PMH of MPS/MDS, MALT lymphoma, portal vein thrombosis, HTN, anemia, CHF, A. Fib on Xarelto, Tucker's thyroiditis, and GERD, presents to the ER via EMS s/ p fall. Per EMS the patient was trying to sit down and the chair slid. She tried to catch herself by grabbing on the table but she still fell. She fell on her left side and is currently complaining of left shoulder and right side/rib pain. She was down for about 20 minutes per patient and she did not call anyone despite having a life alert bracelet. Patient was recently admitted to this hospital for a night for transfusion and was discharged on 06/18/2018. She denies nausea vomitng fever chills chest pain or shortness of breath. Patient states she has an old T12 fracture and has a sacral decubitus ulcer that her AIR CONDITIONING INSTALLER SUPERVISOR is taking care of. She endorses dysuria and states "I think I have a UTI." She denies LOC and denies hitting her head. She walks at home with a walker and per family she has been doing well with it. ER course was notable for: (1)cxr (2)Head CT (3)Left shoulder xray Recent Travel: PAST MEDICAL HISTORY: MPS/MDS MALT lymphoma Portal vein thrombosis HTN Anemia CHF Atrial fibrillation Tucker's thyroiditis GERD PAST SURGICAL HISTORY: Appendectomy , ovaries removal, cataract, lower lip cancer , tonsillectomy Social History: Smokin/2 PPD as teenage Alcohol:denies Drugs: denies Family History: Allergies propoxyphene napsylate [From Darvocet-N 100] Allergy (Severe, Verified 06/17/18 12:43) Swelling aspirin Allergy (Verified 06/17/18 12:43) Difficulty Breathing hydromorphone HCl [From Dilaudid] Allergy (Verified 06/17/18 12:43) HOME MEDICATIONS: Home Medications Medication Instructions Recorded Amino Acids/Protein Hydrolys 30 ml PO DAILY 06/18/18 [Pro-Stat Sugar Free Liquid Pkt] Amlodipine Besylate 10 mg PO DAILY 06/18/18 Cyanocobalamin (Vitamin B-12) 500 mcg PO DAILY 06/18/18 [B-12] Docusate Sodium [Colace -] 100 mg PO BID 06/18/18 Hydroxyurea 500 mg PO DAILY 06/18/18 Naloxegol Oxalate [Movantik] 12.5 mg PO HS 06/18/18 Polyethylene Glycol 3350 [Miralax 17 gm PO BID 06/18/18 255 gm Btl -] Ranitidine [Zantac -] 150 mg PO BID 06/18/18 Rivaroxaban [Xarelto -] 20 mg PO DAILY 06/18/18 Saccharomyces Boulardii [Probiotic] 250 mg PO BID 06/18/18 Sennosides [Senna Lax] 8.6 mg PO PRN PRN 06/18/18 Sotalol HCl [Betapace] 120 mg PO BID 06/18/18 Zinc Sulfate 220 mg PO DAILY 06/18/18 REVIEW OF SYSTEMS as per [facility] PHYSICAL EXAMINATION Vital Signs - 24 hr 06/27/18 19:55 Temperature 98.3 F Pulse Rate 61 Respiratory 22 Rate Blood Pressure 128/39 O2 Sat by Pulse 93 L Oximetry (%) GENERAL: AAOx3 in mild distress HEAD:NC/AT EYES: Pupils equal, round and reactive to light, extraocular movements intact, sclera anicteric, conjunctiva clear. EARS, NOSE, THROAT: Ears normal, nares patent, oropharynx clear without exudates. dry mucous membranes. NECK:supple LUNGS: Breath sounds equal, clear to auscultation bilaterally. No wheezes, and no crackles. No accessory muscle use. HEART: Regular rate and rhythm, normal S1 and S2 without murmur, rub or gallop. ABDOMEN: Soft, nontender, not distended, normoactive bowel sounds, no guarding, UPPER EXTREMITIES: 2+ pulses, warm, well-perfused. No cyanosis. No clubbing. No peripheral edema.left shoulder tenderness, limited rom due to pain , sensation intact , right arm NROM, sensation intact. LOWER EXTREMITIES: 2+ pulses, warm, well-perfused. No calf tenderness. No peripheral edema. strength5/5 , sensation intact NEUROLOGICAL: Cranial nerves II-XII intact. Normal speech. gait not observed PSYCHIATRIC: Cooperative. Good eye contact. SKIN: Warm, dry, CBC, BMP 06/28/18 00:49 06/28/18 00:49 EKG: NSR @ 64 , no specific St, T wave changes Head CT : no intracranial pathology Left shoulder xray : acute misdisplaced proximal humeral fx ASSESSMENT/PLAN: 87 y/o F w/PMH of HTN, myeloproliferative d/o, MALT lymphoma, A-fib (on lovenox) , mitral valve prolapse, hashimotos thyroiditis, GERD, portal vein thrombosis, splenic infarcts, T12 compression fracture presents to the ER from oncologist office (Dr. Kline) due to 1 week of weakness. # Humeral misdplaced proximal fx S/P mechanical fall * Noted on Xray * Pain control * orthoconsult * PT * family non interested in surgery # Anemia * H/H 8.7/25.6 * stool occult * monitor cbc * transfuse to keep Hgb > 8 # hyperkalemia * K: 5.4 * No EKG changes * kayxlate 15 mg po once * repeat bmp # Hyponatremia * A 129 mild * asymtomatic * IV fkuids NS @ 42 CC/hr due to H/O chf # Weakness secondary to dehydrationdue to low oral intake * encouraged to maintain PO hydration and to eat * Gentle fluid hydration - NS @ 42 ml/hr #Hx of portal vein thrombosis * hold AC due to recent fall and risk of bleeding #Insomnia * klonopin 0.25 mg qhs ordered for tonight #Afib * c/w sotalol bid #Anemia, leukopenia secondary to myeloproliferative d/o * continue to monitor #Hx of hashimotos thyroiditis * F/U as out pt #CKD * monitor BUN/Cr #DVT ppx * SCDS both legs #FEN * NS @ 42 ml/hr * monitor electrolytes * Regular diet #Dispo: med surg Visit type - Emergency Visit Emergency Visit: Yes ED Registration Date: 06/28/18 Care time: The patient presented to the Emergency Department on the above date and was hospitalized for further evaluation of their emergent condition. - New Patient This patient is new to me today: Yes Date on this admission: 06/28/18 - Critical Care Critical Care patient: No Hospitalist Screening - Colonoscopy Questionnaire Colonoscopy Questionnaire: Colonoscopy Questionnaire - Patient: 50 - 75 years old and never had a screening colonoscopy: Unknown History of colon or rectal polyps, or CA: Unknown History of IBD, Crohn's disease or UC: Unknown History of abdominal radiation therapy as a child: Unknown - Relative: 1 with colon or rectal CA, or polyps at age 60 or younger: Unknown Colon or rectal CA diagnosed at age 45 or younger: Unknown Multiple relatives with colon or rectal CA: Unknown - Outcome: Screening Result: Negative Screen
[2018-06-28] MEDS ORDERED: SENNOSIDES 8.6MG TABLET (FP) PO PRN (00:48)
[2018-06-28] MEDS ORDERED: ACETAMINOPHEN INJECTION 100 ML IVPB ONE (00:56)
[2018-06-28 01:00] LABS: BASO % 1.3 % (0-2.0); EOS % 2.6 % (0-4.5); HEMATOCRIT 25.6 % (32.4-45.2); HEMOGLOBIN 8.7 GM/dL (10.7-15.3); LYMPH % 12.4 % (8-40); MCH 28.6 pg (25.7-33.7); MCHC 33.8 g/dl (32.0-36.0); MEAN CELL VOLUME 84.7 fl (80-96); MEAN PLT VOLUME 8.6 fl (7.5-11.1); MONO % 18.1 % (3.8-10.2); NEUT % 65.6 % (42.8-82.8); PLATELET COUNT 575 K/MM3 (134-434); RBC 3.02 M/mm3 (3.60-5.2); RDW 15.7 % (11.6-15.6); WHITE BLOOD COUNT 5.4 K/mm3 (4.0-10.0)
[2018-06-28] MEDS ORDERED: ACETAMINOPHEN 1000 MG/100 ML VIAL (NON FORMULARY) IVPB PRN ×2 (01:00→06:50)
[2018-06-28] MEDS ORDERED: SODIUM CHLORIDE 1,000 ML IV SCH (01:00)
[2018-06-28 01:02] LABS: URINE APPEARANCE CLOUDY; URINE BILIRUBIN NEGATIVE (<2.0 mg/dL); URINE COLOR YELLOW; URINE GLUCOSE (UA) 1+ (NEGATIVE); URINE KETONE NEGATIVE (NEGATIVE); URINE NITRITE POSITIVE (NEGATIVE); URINE UROBILINOGEN NEGATIVE mg/dL (0.2-1.0)
[2018-06-28 01:09] LABS: URINE LEUK ESTERASE 3+ (NEGATIVE); URINE PROTEIN 1+ (NEGATIVE)
[2018-06-28 01:11] LABS: EPI CELLS FEW /HPF (FEW)
[2018-06-28 01:21] LABS: ALBUMIN 3.6 g/dl (3.4-5.0); ANION GAP 8 MMOL/L (8-16); BILIRUBIN,TOTAL 0.9 mg/dL (0.2-1.0); BLOOD UREA NITROGEN 32 mg/dL (7-18); CALCIUM 9.4 mg/dL (8.5-10.1); CHLORIDE 93 mmol/L (98-107); CO2 28 mmol/L (21-32); CREATININE 0.9 mg/dL (0.55-1.02); GLUCOSE,RANDOM 91 mg/dL (74-106); PHOSPHOROUS 3.1 mg/dL (2.5-4.9); SGPT/ALT 22 U/L (12-78); SODIUM 129 mmol/L (136-145); TOT PROT 6.6 g/dl (6.4-8.2)
[2018-06-28 01:24] LABS: ALK PHOS 106 U/L (45-117)
[2018-06-28 01:37] LABS: MAGNESIUM 1.6 mg/dL (1.8-2.4); POTASSIUM 5.4 mmol/L (3.5-5.1); SGOT/AST 35 U/L (15-37)
[2018-06-28 02:07] LABS: PLATELET ESTIMATE SLT INCREASE
--- NOTE | 2018-06-28 06:02 | PN ---
Teaching Attending Note Name of Resident: Milton Vickers ATTENDING PHYSICIAN STATEMENT I saw and evaluated the patient. I reviewed the resident's note and discussed the case with the resident. I agree with the resident's findings and plan as documented. SUBJECTIVE: OBJECTIVE: ASSESSMENT AND PLAN: this is an 87 y/o female with hx of HTN, DL, paroxysmal atrial fibrillation presented after the patient fell off the chair while she was sitting down, the patient was complaining of pain in the arm and ribs where she fell,she is being admitted for fall with fracture of the Right shoulder and failure to thrive. plan: orthopedic evaluation pain management c/w home medication cardiology evaluation for the atrial fibrillation hold xarelto at this time due to the fall until orthopedic evaluate the patient IVF hydration hyponatremia send Urine analysis possible 2.2 to dehydration. send TSH
[2018-06-28] MEDS ORDERED: INSULIN (LEVEMIR) 100 UNITS/ML UNITS SQ ONE (06:31)
[2018-06-28] MEDS: SODIUM CHLORIDE 1,000 ML IV SCH ×2 (06:57→21:21)
[2018-06-28] MEDS ORDERED: SODIUM POLYSTYRENE SULFONATE 15 GM/60 ML BOTTLE PO ONE (07:08)
--- NOTE | 2018-06-28 07:40 | HOSP ---
Subjective - Review of Symptoms Subjective: c/o pain in the shoulder which is worse when she moves it. just received tylenol and feels some improvement. endorses dysuria but cant not state for how long. dneies CP, SOB, fever, chills, N/V/C/D Current Medications Generic Name Dose Route Start Last Admin Trade Name Freq PRN Reason Stop Dose Admin Acetaminophen 750 mg 06/28/18 06:50 06/28/18 07:11 Ofirmev Injection - IVPB 750 mg Q6H PRN Administration PAIN LEVEL 4 - 6 Amino Acids 30 ml 06/28/18 08:00 Prosource No Carb Liquid Pkt PO DAILY@0800 MARGARITA Amlodipine Besylate 10 mg 06/28/18 10:00 Norvasc - PO DAILY [facility] Cyanocobalamin 500 mcg 06/28/18 10:00 Vitamin B12 - PO DAILY MARGARITA Docusate Sodium 100 mg 06/28/18 10:00 Colace - PO BID MARGARITA Hydroxyurea 500 mg 06/28/18 10:00 Hydrea - PO DAILY MARGARITA Sodium Chloride 1,000 mls @ 75 mls/hr 06/27/18 20:45 06/28/18 06:57 Normal Saline - IV 75 mls/hr ASDIR MARGARITA Administration Sodium Chloride 1,000 mls @ 42 mls/hr 06/28/18 01:00 06/28/18 01:13 Normal Saline - IV 06/29/18 00:49 42 mls/hr ASDIR MARGARITA Administration Lactobacillus Acidophilus 1 tab 06/28/18 10:00 Bacid - PO BID [facility] Non-Formulary Medication 12.5 mg 06/28/18 22:00 Naloxegol Oxalate [Movantik] PO HS [facility] Polyethylene Glycol 17 gm 06/28/18 10:00 Miralax (For Bowel Prep) - PO BID MARGARITA Ranitidine HCl 150 mg 06/28/18 10:00 Zantac - PO BID MARGARITA Senna 2 tab 06/28/18 22:00 Senna - PO HS [facility] Sodium Polystyrene Sulfonate 15 gm 06/28/18 07:08 Kayexalate - PO 06/28/18 07:09 ONCE ONE Sotalol HCl 120 mg 06/28/18 10:00 Betapace - PO BID [facility] Zinc Sulfate 220 mg 06/28/18 10:00 Orazinc - PO DAILY MARGARITA Last Vital Signs Temp Pulse Resp BP Pulse Ox 98.1 F 64 20 142/53 99 06/28/18 03:10 06/28/18 03:10 06/28/18 03:10 06/28/18 03:10 06/28/18 03:15 General NAD CV S1 S2 irregular Lungs CTA anteriorly Abdomen soft +suprapubic tenderness Extremities refuses exam of the arm. pulses intact B/L CBCD WBC 5.4 K/mm3 (4.0-10.0) 06/28/18 00:49 RBC 3.02 M/mm3 (3.60-5.2) L 06/28/18 00:49 Hgb 8.7 GM/dL (10.7-15.3) L 06/28/18 00:49 Hct 25.6 % (32.4-45.2) L D 06/28/18 00:49 MCV 84.7 fl (80-96) 06/28/18 00:49 MCHC 33.8 g/dl (32.0-36.0) 06/28/18 00:49 RDW 15.7 % (11.6-15.6) H 06/28/18 00:49 Plt Count 575 K/MM3 (134-434) H 06/28/18 00:49 MPV 8.6 fl (7.5-11.1) 06/28/18 00:49 CMP Sodium 129 mmol/L (136-145) L 06/28/18 00:49 Potassium 5.4 mmol/L (3.5-5.1) H 06/28/18 00:49 Chloride 93 mmol/L (98-107) L 06/28/18 00:49 Carbon Dioxide 28 mmol/L (21-32) 06/28/18 00:49 Anion Gap 8 MMOL/L (8-16) 06/28/18 00:49 BUN 32 mg/dL (7-18) H 06/28/18 00:49 Creatinine 0.9 mg/dL (0.55-1.02) 06/28/18 00:49 Creat Clearance w eGFR 59.37 (>60) 06/28/18 00:49 Calcium 9.4 mg/dL (8.5-10.1) 06/28/18 00:49 Total Bilirubin 0.9 mg/dL (0.2-1.0) 06/28/18 00:49 AST 35 U/L (15-37) 06/28/18 00:49 ALT 22 U/L (12-78) 06/28/18 00:49 Alkaline Phosphatase 106 U/L (45-117) 06/28/18 00:49 Total Protein 6.6 g/dl (6.4-8.2) 06/28/18 00:49 Albumin 3.6 g/dl (3.4-5.0) 06/28/18 00:49 A/P 87yo F with PMH MALT/Lymphoma, portal vein thrombosis, Afib on xarelto, HTN , CHF, Hashimotos presented to the ER after mechanical fall and found ot have sustained L humeral fracture and UTI 1. L humeral fracture- s/p mechanical fall. pt does not want surgery "im too old for surgery". ortho consulted. pain control. place immobilizer. PT assessment 2. Hyperkalemia- given kayexylate. will repeat 3. hypomagnesemia- no supplements given. will repeat and supplement if needed 4. UTI- hx of sensitive Ecoli and Proteus treated in 05/2018. will start Ceftriaxone. f/u Cx 5. Hyponatremia- dehydration. on IVF. monitor 6. Thrombocytopenia 7. Normocytic anemia- multifactorial. receives frequent transfusions. no signs of obvious bleeding. monitor CBC. no indication for transfusion 8. Afib on Xarelto- rate controlled. cont home medications. xarelto on hold. will re-start pending repeat labs if Hgb stable 9. HTN- controlled 10. CHF- no signs of volume overload. clinically euvolemic. 11. Tucker 12. DVT ppx- Xarelto 13. PT assessment. will need to speak with family about dispo. was at [facility] recently on hospice care on this admission she came from home. unclear if she was on hospice. Physical Examination Vital Signs: Vital Signs Temperature 98.1 F 06/28/18 03:10 Pulse Rate 64 06/28/18 03:10 Respiratory Rate 20 06/28/18 03:10 Blood Pressure 142/53 06/28/18 03:10 O2 Sat by Pulse Oximetry (%) 99 06/28/18 03:15 Labs: CBC, BMP 06/28/18 00:49 06/28/18 00:49
[2018-06-28 08:35] LABS: HEMATOCRIT 22.8 % (32.4-45.2); HEMOGLOBIN 7.6 GM/dL (10.7-15.3); MCH 28.3 pg (25.7-33.7); MCHC 33.4 g/dl (32.0-36.0); MEAN CELL VOLUME 84.6 fl (80-96); MEAN PLT VOLUME 7.7 fl (7.5-11.1); PLATELET COUNT 427 K/MM3 (134-434); RBC 2.69 M/mm3 (3.60-5.2); RDW 15.3 % (11.6-15.6); WHITE BLOOD COUNT 3.6 K/mm3 (4.0-10.0)
[2018-06-28 09:03] LABS: ANION GAP 2 MMOL/L (8-16); BLOOD UREA NITROGEN 26 mg/dL (7-18); CALCIUM 8.4 mg/dL (8.5-10.1); CHLORIDE 97 mmol/L (98-107); CO2 29 mmol/L (21-32); CREATININE 0.7 mg/dL (0.55-1.02); GLUCOSE,RANDOM 97 mg/dL (74-106); MAGNESIUM 1.5 mg/dL (1.8-2.4); POTASSIUM 4.2 mmol/L (3.5-5.1); SODIUM 128 mmol/L (136-145)
[2018-06-28] MEDS ORDERED: DEXTROSE 5%-WATER - 50 ML IVPB ONE (09:37)
[2018-06-28] MEDS ORDERED: cefTRIAXone SODIUM 1 GM VIAL ONE (09:37)
[2018-06-28] MEDS: CYANOCOBALAMIN 1,000 MCG TABLET (FP) PO SCH (09:50)
[2018-06-28] MEDS: DOCUSATE SODIUM 100 MG CAPSULE (FP) PO SCH ×2 (09:50→21:11)
[2018-06-28] MEDS: LACTOBACILLUS ACIDOPHILUS 1 TABLET PO SCH ×2 (09:50→21:10)
[2018-06-28] MEDS: SOTALOL HCL 80 MG TABLET (FP) PO SCH ×2 (09:50→21:10)
[2018-06-28] MEDS: CEFTRIAXONE 1 GM in DEXTROSE 5%-WATER - 50 ML IVPB SCH (09:50)
[2018-06-28] MEDS: AMINO ACIDS/PROTEIN HYDROLYS 30 ML LIQUID.PKT PO SCH (09:50)
[2018-06-28] MEDS: ZINC SULFATE 220 MG CAPSULE (FP) PO SCH (09:50)
[2018-06-28] MEDS: RANITIDINE HCL 150 MG TABLET (FP) PO SCH ×2 (09:50→21:10)
[2018-06-28] MEDS: LIDOCAINE 5% TOPICAL PATCH TP SCH (09:51)
[2018-06-28] MEDS ORDERED: PT OWN MED DRAWER 7, Y5N ONE (09:53)
[2018-06-28] MEDS: POLYETHYLENE GLYCOL 3350 255 GM BTL PO SCH ×2 (09:58→21:10)
[2018-06-28] MEDS: amLODIPine BESYLATE 10 MG TABLET (FP) PO SCH (09:58)
[2018-06-28] MEDS ORDERED: MAGNESIUM OXIDE 400 MG TABLET (FP) PO ONE (11:15)
--- NOTE | 2018-06-28 11:24 | CON.CARD ---
Consult Consult Specialty:: Cardiology Reason for Consultation:: afib - History of Present Illness Chief Complaint: fall History of Present Illness: 87F h/o MPS/MDS, MALT lymphoma, portal vein thrombosis, HTN, anemia, CHF, A. Fib on Xarelto, Tucker's thyroiditis, and GERD p/w fall. Mechanical fall, tried to sit down and chair slid out. No syncope. no cp, palps, dizzy, lightheadedness. Has L shoulder pain and right rib pain. Head CT no bleed, L arm humeral fx on xray. Holding eliquis in setting of fall, has stable anemia. Received IVF as well, hyponatremia. Sees Dr. Loaiza in clinic. - History Source History Provided By: Patient Limitations to Obtaining History: No Limitations - Past Medical History Cardio/Vascular: Yes: AFIB, HTN, Other (Mitral Valve Prolapse) Gastrointestinal: Yes: GERD Renal/: Yes: Neurogenic Bladder, UTI ...: No Psych: Yes: Anxiety ENT: Yes: Allergic Rhinitis, Sinusitis Endocrine: Yes: Other (Hashimotos thyroiditis) - Past Surgical History Past Surgical History: Yes: Appendectomy, Cataract Removal (bilateral), Oopherectomy (bilateral), Tonsillectomy - Alcohol/Substance Use Hx Alcohol Use: No - Smoking History Smoking history: Never smoked Have you smoked in the past 12 months: No Aproximately how many cigarettes per day: 2 If you are a former smoker, when did you quit?: 60 years ago - Social History Usual Living Arrangement: Alone (, in [place]) ADL: Support Services 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 History of Recent Travel: No Home Medications - Allergies Allergies/Adverse Reactions: Allergies Allergy/AdvReac Type Severity Reaction Status Date / Time propoxyphene napsylate Allergy Severe Swelling Verified 06/17/18 12:43 [From Darvocet-N 100] aspirin Allergy Difficulty Verified 06/17/18 12:43 Breathing hydromorphone HCl Allergy Verified 06/17/18 12:43 [From Dilaudid] - Home Medications Home Medications: Ambulatory Orders Amino Acids/Protein Hydrolys [Pro-Stat Sugar Free Liquid Pkt] 30 ml PO DAILY Amlodipine Besylate 10 mg PO DAILY 06/18/18 Cyanocobalamin (Vitamin B-12) [B-12] 500 mcg PO DAILY 06/18/18 Docusate Sodium [Colace -] 100 mg PO ONCE 06/18/18 Hydroxyurea 500 mg PO DAILY 06/18/18 Ranitidine [Zantac -] 150 mg PO BID 06/18/18 Rivaroxaban [Xarelto -] 20 mg PO DAILY 06/18/18 Saccharomyces Boulardii [Probiotic] 250 mg PO BID 06/18/18 Sennosides [Senna Lax] 8.6 mg PO PRN PRN 06/18/18 Sotalol HCl [Betapace] 120 mg PO BID 06/18/18 Klonopin - 0.25 mg PO DAILY 06/28/18 Family Disease History - Family Disease History Family Disease History: Other: Father (CVA) Review of Systems - Review of Systems Constitutional: reports: Weakness Eyes: reports: No Symptoms HENT: reports: No Symptoms Neck: reports: Pain on Movement Cardiovascular: reports: No Symptoms Respiratory: reports: No Symptoms Gastrointestinal: reports: No Symptoms Genitourinary: reports: No Symptoms Musculoskeletal: reports: Back Pain, Joint Pain Integumentary: reports: Bruising Neurological: reports: No Symptoms Endocrine: reports: No Symptoms Hematology/Lymphatic: reports: No Symptoms Psychiatric: reports: No Symptoms Vital Signs: Vital Signs Temperature 98 F 06/28/18 08:00 Pulse Rate 62 06/28/18 08:00 Respiratory Rate 20 06/28/18 08:00 Blood Pressure 143/52 06/28/18 08:00 O2 Sat by Pulse Oximetry (%) 99 06/28/18 03:15 Constitutional: Yes: Well Nourished, No Distress, Calm Eyes: Yes: Conjunctiva Clear, EOM Intact HENT: Yes: Atraumatic, Normocephalic Neck: Yes: Supple Respiratory: Yes: Regular, CTA Bilaterally Gastrointestinal: Yes: Normal Bowel Sounds, Soft Cardiovascular: Yes: Regular Rate and Rhythm Edema: No Peripheral Pulses: 2+ Left Doralis Pedis, 2+ Right Dorsalis Pedis Psychiatric: Yes: Alert, Oriented - Other Data Labs, Other Data: CBC, BMP 06/28/18 08:20 06/28/18 08:20 Troponin, BNP 06/28/18 00:49 Troponin I 0.05 Troponin, BNP 06/28/18 00:49 Troponin I 0.05 Assessment/Plan EKG: sinus, significant baseline artifact humeral fx - ortho consulted, family wishes to decline surgery, pain control per primary team Afib - on sotalol, continue, rate controlled - holding xarelto in setting of recent fall, restart xarelto when able pending ortho eval - if continued episodes of fall would consider risk vs benefits of continued anticoagulation, patient denies frequent falls and usually uses walker Anemia - h/o heme malignancy, manage per primary hyponatremia - receiving IVF, manage per primary team h/o portal vein thrombosis - on xarelto, restart when able as above
[2018-06-28] MEDS: HYDROXYUREA 500 MG CAPSULE PO SCH (11:52)
--- NOTE | 2018-06-28 12:37 | PN ---
Progress Note (short form) - Note Progress Note: Pt seen and examined. She is an 87 year old female pt s/p recent fall with c/o pain in the left upper arm/shoulder, and the neck. She denies any radicular symptoms. PE Left shoulder with no swelling, ecchymosis, abrasions or deformity. LUE grossly NVI + tender over left proximal humerus Hard to assess RTC function C-spine is tender to touch posteriorly No signs of a cervical radiculopathy Limited ROM due to pain. Xrays of the left shoulder show a minimally displaced left proximal humerus fracture. CT scan head NL No xrays of cervical spine were done. Imp 87 year old right hand dom F with an acute left proximal humerus fracture , and cervical muscle strain. Rec No surgery needed. Shoulder sling. Ice if needed. Can use LUE for light activities. Xrays of the c-spine ordered Should get OOB to chair every day.
[2018-06-28] MEDS: clonazePAM 0.5 MG TABLET PO SCH (14:48)
[2018-06-28 16:42] LABS: HEMATOCRIT 24.8 % (32.4-45.2); HEMOGLOBIN 8.5 GM/dL (10.7-15.3); MCH 28.9 pg (25.7-33.7); MCHC 34.1 g/dl (32.0-36.0); MEAN CELL VOLUME 84.8 fl (80-96); MEAN PLT VOLUME 8.1 fl (7.5-11.1); PLATELET COUNT 648 K/MM3 (134-434); RBC 2.93 M/mm3 (3.60-5.2); RDW 15.7 % (11.6-15.6); WHITE BLOOD COUNT 5.2 K/mm3 (4.0-10.0)
--- NOTE | 2018-06-28 18:56 | EKG ---
Test Reason : Blood Pressure : / mmHG Vent. Rate : 064 BPM Atrial Rate : 067 BPM P-R Int : 208 ms QRS Dur : 076 ms QT Int : 412 ms P-R-T Axes : 024 -46 -36 degrees QTc Int : 425 ms SINUS RHYTHM WITH PREMATURE SUPRAVENTRICULAR COMPLEXES AND WITH OCCASIONAL PREMATURE VENTRICULAR COMPLEXES LEFT AXIS DEVIATION LOW VOLTAGE QRS POSSIBLE ANTEROLATERAL INFARCT (CITED ON OR BEFORE 25-APR-2018) ABNORMAL ECG WHEN COMPARED WITH ECG OF 17-JUN-2018 16:51, SIGNIFICANT CHANGES HAVE OCCURRED Confirmed by DOMINIQUE VALENTINE MD ([id number]) on 06/28/2018 6:55:56 PM Referred By: Confirmed By:DOMINIQUE VALENTINE MD
[2018-06-28] MEDS: SENNOSIDES 8.6MG TABLET (FP) PO SCH (21:10)
[2018-06-28] MEDS: LIDOCAINE PATCH REMOVAL MC SCH (21:11)
[2018-06-28] MEDS ORDERED: PATIENT'S OWN MEDICATION (NON-FORMULARY) (Naloxegol Oxalate [Movantik] 12.5 MG) PO SCH (22:00)
[2018-06-29 06:37] LABS: BASO % 1.1 % (0-2.0); EOS % 1.7 % (0-4.5); HEMATOCRIT 23.6 % (32.4-45.2); HEMOGLOBIN 7.7 GM/dL (10.7-15.3); MCH 28.1 pg (25.7-33.7); MCHC 32.7 g/dl (32.0-36.0); MEAN CELL VOLUME 85.9 fl (80-96); MEAN PLT VOLUME 7.9 fl (7.5-11.1); NEUT % 70.2 % (42.8-82.8); PLATELET COUNT 498 K/MM3 (134-434); RBC 2.75 M/mm3 (3.60-5.2); RDW 15.9 % (11.6-15.6); WHITE BLOOD COUNT 4.6 K/mm3 (4.0-10.0)
[2018-06-29 08:21] LABS: ANION GAP 8 MMOL/L (8-16); BLOOD UREA NITROGEN 19 mg/dL (7-18); CALCIUM 7.8 mg/dL (8.5-10.1); CHLORIDE 99 mmol/L (98-107); CO2 28 mmol/L (21-32); CREATININE 0.4 mg/dL (0.55-1.02); GLUCOSE,RANDOM 99 mg/dL (74-106); MAGNESIUM 1.5 mg/dL (1.8-2.4); POTASSIUM 4.2 mmol/L (3.5-5.1); SODIUM 135 mmol/L (136-145)
[2018-06-29] MEDS ORDERED: MAGNESIUM OXIDE 400 MG TABLET (FP) PO ONE ×2 (09:37→11:15)
--- NOTE | 2018-06-29 10:10 | PN ---
Teaching Attending Note Name of Resident: Aishwarya Arechiga ATTENDING PHYSICIAN STATEMENT I saw and evaluated the patient. I reviewed the resident's note and discussed the case with the resident. I agree with the resident's findings and plan as documented. SUBJECTIVE:pain improved with lidocaine patch. dneies CP, SOB, fever, chills, N/ V/C/D, melena or BRBPR OBJECTIVE: Last Vital Signs Temp Pulse Resp BP Pulse Ox 98.1 F 75 20 139/61 96 06/28/18 22:00 06/28/18 22:00 06/28/18 22:00 06/28/18 22:00 06/28/18 21:00 General NAD CV S1 S2 irregular abdomen soft NT/nD Extremities L shoulder in immobilizer, able to move fingers freely. pulses 2+ ASSESSMENT AND PLAN: 87yo F with PMH MALT/Lymphoma, portal vein thrombosis, Afib on xarelto, HTN, CHF , Hashimotos presented to the ER after mechanical fall and found ot have sustained L humeral fracture and UTI 1. L humeral fracture- s/p mechanical fall. shoulder in immobilizer. light movement. pain control. PT assessment 2. Hyperkalemia- given kayexylate. resolved 3. hypomagnesemia- no supplements given. Mg IV and po 4. UTI- hx of sensitive Ecoli and Proteus treated in 05/2018. on Ceftriaxone day 2. f/u Cx 5. Hyponatremia- dehydration. resolved. d/c IVF 6. Thrombocytopenia 7. Normocytic anemia- multifactorial. receives frequent transfusions. hgb trending down. will transfuse 1 unit PRBC. repeat post-transfusion. no signs of bleeding. 8. Afib on Xarelto- rate controlled. cont home medications. xarelto on hold. will re-start once hgb stabilizes 9. HTN- controlled 10. CHF- no signs of volume overload. clinically euvolemic. 11. Tucker 12. DVT ppx- Xarelto 13. PT assessment. pt may benefit from [facility] vs hospice. appears to be on hospice earlier this year. unclear if status changed. pt does not seem to understand when questioned about it 14. DNR/DNI
[2018-06-29] MEDS ORDERED: DEXTROSE 5%-WATER - 50 ML IVPB ONE (10:34)
[2018-06-29] MEDS ORDERED: cefTRIAXone SODIUM 1 GM VIAL ONE (10:34)
[2018-06-29] MEDS: CEFTRIAXONE 1 GM in DEXTROSE 5%-WATER - 50 ML IVPB SCH (10:50)
[2018-06-29] MEDS: AMINO ACIDS/PROTEIN HYDROLYS 30 ML LIQUID.PKT PO SCH (10:50)
[2018-06-29] MEDS: ZINC SULFATE 220 MG CAPSULE (FP) PO SCH (10:51)
[2018-06-29] MEDS: SOTALOL HCL 80 MG TABLET (FP) PO SCH ×2 (10:51→22:52)
[2018-06-29] MEDS: POLYETHYLENE GLYCOL 3350 255 GM BTL PO SCH ×2 (10:51→22:53)
[2018-06-29] MEDS: RANITIDINE HCL 150 MG TABLET (FP) PO SCH ×2 (10:51→22:52)
[2018-06-29] MEDS: LIDOCAINE 5% TOPICAL PATCH TP SCH (10:51)
[2018-06-29] MEDS: ACETAMINOPHEN 325 MG TABLET (FP) PO PRN ×2 (10:52→18:23)
[2018-06-29] MEDS: amLODIPine BESYLATE 10 MG TABLET (FP) PO SCH (10:53)
[2018-06-29] MEDS: CYANOCOBALAMIN 1,000 MCG TABLET (FP) PO SCH (10:53)
[2018-06-29] MEDS: LACTOBACILLUS ACIDOPHILUS 1 TABLET PO SCH ×2 (10:54→22:53)
[2018-06-29] MEDS: DOCUSATE SODIUM 100 MG CAPSULE (FP) PO SCH ×2 (10:54→22:50)
[2018-06-29] MEDS: clonazePAM 0.5 MG TABLET PO SCH ×3 (10:55→22:50)
[2018-06-29] MEDS: HYDROXYUREA 500 MG CAPSULE PO SCH (10:55)
[2018-06-29] MEDS ORDERED: MAGNESIUM SULF 50% (8.12 MEQ/2 ML-1 GM VIAL) IVPB ONE (11:15)
[2018-06-29 11:56] LABS: ANISOCYTOSIS 1+; MACROCYTOSIS 0; PLATELET ESTIMATE NORMAL
--- NOTE | 2018-06-29 12:22 | PN ---
Physical Exam: SUBJECTIVE: Patient seen and examined this morning at bedside. Remains incontinent to urine. Pain improved on current regimen. Denies fevers, chills, chest pain, SOB, nausea, vomiting, diarrhea, constipation. OBJECTIVE: Vital Signs Period Temp Pulse Resp BP Sys/Conde Pulse Ox Last 24 Hr 98.1 F-98.6 F 74-80 18-20 139-150/51-61 96 GENERAL: The patient is awake, alert, and fully oriented, in no acute distress. EYES: PERRL, EOMI THROAT: Oropharynx clear without exudates, moist mucous membranes. NECK: Supple. No JVD. LUNGS: Breath sounds equal, clear to auscultation bilaterally, no wheezes, on 3L NC HEART: Regular rate and rhythm, S1, S2 without murmur ABDOMEN: Soft, nontender, nondistended, normoactive bowel sounds EXTREMITIES: 2+ pulses, no edema, wearing SCDs. UE Muscle strength 5/5 b/l. Left shoulder tender to palpation, No ecchymosis noted, Limited ROM as Left upper extremity is currently in immobilizer. Right should ROM intact NEUROLOGICAL: C5-T1 gross sensation intact SKIN: Warm, dry, no rashes or lesions noted Laboratory Results - last 24 hr 06/28/18 06/28/18 06/29/18 08:20 16:15 05:30 WBC 5.2 4.6 RBC 2.93 L 2.75 L Hgb 8.5 L 7.7 L Hct 24.8 L 23.6 L MCV 84.8 85.9 MCH 28.9 28.1 MCHC 34.1 32.7 RDW 15.7 H 15.9 H Plt Count 648 H D 498 H D MPV 8.1 7.9 Absolute Neuts (auto) 3.3 Neutrophils % 70.2 Lymphocytes % 11.0 Monocytes % 16.0 H Eosinophils % 1.7 Basophils % 1.1 Nucleated RBC % 0 Sodium Potassium Chloride Carbon Dioxide Anion Gap BUN Creatinine Creat Clearance w eGFR Random Glucose Calcium Magnesium TSH 2.60 Blood Type Antibody Screen Crossmatch 06/29/18 06/29/18 05:30 08:40 WBC RBC Hgb Hct MCV MCH MCHC RDW Plt Count MPV Absolute Neuts (auto) Neutrophils % Lymphocytes % Monocytes % Eosinophils % Basophils % Nucleated RBC % Sodium 135 L Potassium 4.2 Chloride 99 Carbon Dioxide 28 Anion Gap 8 BUN 19 H Creatinine 0.4 L Creat Clearance w eGFR > 60 Random Glucose 99 Calcium 7.8 L Magnesium 1.5 L TSH Blood Type AB POSITIVE Antibody Screen Negative Crossmatch See Detail Microbiology 06/28/18 00:49 Urine - Urine Clean Catch Urine Culture - Preliminary Lactose Fermenting Neg Bacilli Active Medications Acetaminophen (Tylenol -) 650 mg PO Q6H PRN PRN Reason: PAIN LEVEL 6-10 Last Admin: 06/29/18 10:52 Dose: 650 mg Amino Acids (Prosource No Carb Liquid Pkt) 30 ml PO DAILY@0800 [facility] Last Admin: 06/29/18 10:50 Dose: 30 ml Amlodipine Besylate (Norvasc -) 10 mg PO DAILY [facility] Last Admin: 06/29/18 10:53 Dose: 10 mg Clonazepam (Klonopin -) 0.25 mg PO DAILY [facility] Last Admin: 06/29/18 10:55 Dose: 0.25 mg Cyanocobalamin (Vitamin B12 -) 500 mcg PO DAILY [facility] Last Admin: 06/29/18 10:53 Dose: 500 mcg Docusate Sodium (Colace -) 100 mg PO BID [facility] Last Admin: 06/29/18 10:54 Dose: Not Given Hydroxyurea (Hydrea -) 500 mg PO DAILY [facility] Last Admin: 06/29/18 10:55 Dose: 500 mg Ceftriaxone Sodium 1 gm/ (Dextrose) 50 mls @ 100 mls/hr IVPB DAILY [facility]; Protocol Last Admin: 06/29/18 10:50 Dose: 100 mls/hr Lactobacillus Acidophilus (Bacid -) 1 tab PO BID [facility] Last Admin: 06/29/18 10:54 Dose: 1 tab Lidocaine (Lidoderm Patch -) 1 patch TP DAILY [facility] Last Admin: 06/29/18 10:51 Dose: 1 patch Miscellaneous (Lidoderm Patch Removal) 1 each MC DAILY@2200 [facility] Last Admin: 06/28/18 21:11 Dose: 1 each Non-Formulary Medication (Naloxegol Oxalate [Movantik]) 12.5 mg PO [facility] Polyethylene Glycol (Miralax (For Bowel Prep) -) 17 gm PO BID [facility] Last Admin: 06/29/18 10:51 Dose: Not Given Ranitidine HCl (Zantac -) 150 mg PO BID [facility] Last Admin: 06/29/18 10:51 Dose: 150 mg Senna (Senna -) 2 tab PO HS [facility] Last Admin: 06/28/18 21:10 Dose: 2 tab Sotalol HCl (Betapace -) 120 mg PO BID [facility] Last Admin: 06/29/18 10:51 Dose: 120 mg Zinc Sulfate (Orazinc -) 220 mg PO DAILY [facility] Last Admin: 06/29/18 10:51 Dose: 220 mg IMAGING: - Head CT: No CT evidence of acute intracranial pathology. The intracranial structures demonstrate no definite interval change comparison to a prior CT exam of 05/17/2017. Interval development of at least moderate right maxillary sinus mucosal thickening is seen consistent with consistent with sinusitis which may be chronic or acute. Correlate clinically. There is partial imaging of a soft tissue lesion within the superficial and deep lobes of the left parotid gland. This focus measures at least 3 cm in diameter. Comparison with prior studies is limited in this regard due to partial imaging. - CXR: The chest demonstrates no definite interval change comparison to a previous radiographic study of 05/03/2018. Small to moderate left-sided and very small right-sided pleural effusions are noted with associated bibasilar opacity which may represent atelectasis and/or infiltrate. There is apparent mild focal deformity of the left sixth rib laterally which may be chronic or acute in nature. Correlate clinically. - Left Shoulder XRay: Equivocal acute nondisplaced proximal humeral fracture as noted above. - C-Spine XRay: Incomplete visualization of spine. Further imaging needed. ASSESSMENT/PLAN: 87 y/o F w/PMH of HTN, myeloproliferative d/o, MALT lymphoma, A-fib (on lovenox) , mitral valve prolapse, hashimotos thyroiditis, GERD, portal vein thrombosis, splenic infarcts, T12 compression fracture presents to the ER from oncologist office (Dr. Kline) due to 1 week of weakness. 1. Acute nondisplaced proximal humeral fracture - S/P mechanical fall, Patient currently not interested in surgery, Spoke with Farhan (Daugther/Proxy) who is aware of No surgery at this time - Left Shoulder XRay: Equivocal acute nondisplaced proximal humeral fracture as noted above. - On Exam, UE Muscle strength 5/5 b/l, Left shoulder tender to palpation with Limited ROM, C5-T1 gross sensation intact - Left Shoulder currently in immobilizer - Pain control via Tylenol 650 mg PO Q6H PRN and Lidoderm Patch TP DAILY - PT assessment pending - Orthopedic (Dr. Resendiz) consulted, No surgery needed, Shoulder sling, Ice if needed, Xrays of the c-spine ordered - C-Spine XRay: Incomplete visualization of spine. Further imaging needed. 2. Hyperkalemia - K+ 5.4 on admission - Given Kayxlate 15 mg PO x1 - Repeat K 4.2, resolved 3. UTI - UA: Nitrite positive, 1+ Blood, 3+ Leukocyte esterase, 319 WBC - Urine Cx Prelim Lactose fermenting negative bacilli - Urine Cx (05/05/18) positive for E. Coli, Proteus mirabalis, Enterococcus, - Continue on Ceftriaxone Sodium 1 gm IVPB DAILY (Day 2) 4. Hyponatremia - 129 on admission, 135 today - Asymtomatic, Likely due to dehydration from low oral intake - Resolved with NS @ 42 mls/hr, D/C'ed IVF 5. Anemia - has hx of multiple transfusions - H&H on admission of 8.7/25.6, today 7.7/23.6 - Stool occult blood pending - 1 Unit pRBCs pending for transfusion (06/29), repeat CBC after 6. Atrial fibrillation - Rate controlled - Continue Sotalol 120 mg PO BID - Hold Xarelto, will restart once H&H stabilizes 7. Insomnia - Contineu home dose Klonopin 0.25 mg PO DAILY 8. PPx - DVT: SCDs 9. FEN - PO Fluids - Continue to monitor electrolytes - Na controlled diet Dispo: likely d/c tmrw to rehab, patient prefers [facility] Visit type - Emergency Visit Emergency Visit: Yes ED Registration Date: 06/28/18 Care time: The patient presented to the Emergency Department on the above date and was hospitalized for further evaluation of their emergent condition. - New Patient This patient is new to me today: Yes Date on this admission: 06/29/18 - Critical Care Critical Care patient: No
--- NOTE | 2018-06-29 12:49 | PN ---
Progress Note (short form) - Note Progress Note: cc fall, humeral fx s: no cp, palps, dizziness, lightheadedness. complains of arm pain Current Medications Acetaminophen (Tylenol -) 650 mg PO Q6H PRN PRN Reason: PAIN LEVEL 6-10 Last Admin: 06/29/18 10:52 Dose: 650 mg Amino Acids (Prosource No Carb Liquid Pkt) 30 ml PO DAILY@0800 [facility] Last Admin: 06/29/18 10:50 Dose: 30 ml Amlodipine Besylate (Norvasc -) 10 mg PO DAILY [facility] Last Admin: 06/29/18 10:53 Dose: 10 mg Clonazepam (Klonopin -) 0.25 mg PO DAILY [facility] Last Admin: 06/29/18 10:55 Dose: 0.25 mg Cyanocobalamin (Vitamin B12 -) 500 mcg PO DAILY [facility] Last Admin: 06/29/18 10:53 Dose: 500 mcg Docusate Sodium (Colace -) 100 mg PO BID [facility] Last Admin: 06/29/18 10:54 Dose: Not Given Hydroxyurea (Hydrea -) 500 mg PO DAILY [facility] Last Admin: 06/29/18 10:55 Dose: 500 mg Ceftriaxone Sodium 1 gm/ (Dextrose) 50 mls @ 100 mls/hr IVPB DAILY [facility]; Protocol Last Admin: 06/29/18 10:50 Dose: 100 mls/hr Lactobacillus Acidophilus (Bacid -) 1 tab PO BID [facility] Last Admin: 06/29/18 10:54 Dose: 1 tab Lidocaine (Lidoderm Patch -) 1 patch TP DAILY [facility] Last Admin: 06/29/18 10:51 Dose: 1 patch Miscellaneous (Lidoderm Patch Removal) 1 each MC DAILY@2200 [facility] Last Admin: 06/28/18 21:11 Dose: 1 each Non-Formulary Medication (Naloxegol Oxalate [Movantik]) 12.5 mg PO [facility] Polyethylene Glycol (Miralax (For Bowel Prep) -) 17 gm PO BID [facility] Last Admin: 06/29/18 10:51 Dose: Not Given Ranitidine HCl (Zantac -) 150 mg PO BID [facility] Last Admin: 06/29/18 10:51 Dose: 150 mg Senna (Senna -) 2 tab PO HS [facility] Last Admin: 06/28/18 21:10 Dose: 2 tab Sotalol HCl (Betapace -) 120 mg PO BID [facility] Last Admin: 06/29/18 10:51 Dose: 120 mg Zinc Sulfate (Orazinc -) 220 mg PO DAILY [facility] Last Admin: 06/29/18 10:51 Dose: 220 mg Vital Signs: Vital Signs Period Temp Pulse Resp BP Sys/Conde Pulse Ox Last 24 Hr 98.1 F-98.6 F 74-80 18-20 139-150/51-61 96 Constitutional: Yes: Well Nourished, No Distress, Calm Eyes: Yes: Conjunctiva Clear, EOM Intact HENT: Yes: Atraumatic, Normocephalic Neck: Yes: Supple Respiratory: Yes: Regular, CTA Bilaterally Gastrointestinal: Yes: Normal Bowel Sounds, Soft Cardiovascular: Yes: Regular Rate and Rhythm Edema: No Peripheral Pulses: 2+ Left Doralis Pedis, 2+ Right Dorsalis Pedis Psychiatric: Yes: Alert, Oriented Assessment/Plan EKG: sinus, significant baseline artifact humeral fx - ortho consulted, family wishes to decline surgery, pain control per primary team Afib - on sotalol, continue, rate controlled - holding xarelto in setting of recent fall, restart xarelto when able pending ortho eval - if continued episodes of fall would consider risk vs benefits of continued anticoagulation, patient denies frequent falls and usually uses walker Anemia - h/o heme malignancy, receiving PRBC transfusion - holding Xarelto hyponatremia - receiving IVF, manage per primary team h/o portal vein thrombosis - on xarelto, holding now, restart when able as above
[2018-06-29] MEDS: APIXABAN 2.5 MG TABLET PO SCH (22:50)
[2018-06-29] MEDS: SENNOSIDES 8.6MG TABLET (FP) PO SCH (22:52)
[2018-06-29] MEDS: LIDOCAINE PATCH REMOVAL MC SCH (22:53)
--- NOTE | 2018-06-29 23:10 | CONSULT ---
Consult - text type - Consultation Consultation Note: 87F h/o essential thrombocytosis/myelofibrosis, MALT lymphoma, portal vein thrombosis, HTN, anemia, CHF, A. Fib on Xarelto, Tucker's thyroiditis, and GERD p/w fall. Mechanical fall, tried to sit down and chair slid out. No syncope. no cp, palps, dizzy, lightheadedness. Has L shoulder pain and left rib pain. Head CT no bleed, L arm humeral fx on xray. Holding eliquis in setting of fall, has stable anemia. Received IVF as well, hyponatremia. 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 - Allergies Allergies/Adverse Reactions: Allergies Allergy/AdvReac Type Severity Reaction Status Date / Time propoxyphene napsylate Allergy Severe Swelling Verified 06/17/18 12:43 [From Darvocet-N 100] aspirin Allergy Difficulty Verified 06/17/18 12:43 Breathing hydromorphone HCl Allergy Verified 06/17/18 12:43 [From Dilaudid] - Home Medications Home Medications: Ambulatory Orders Amino Acids/Protein Hydrolys [Pro-Stat Sugar Free Liquid Pkt] 30 ml PO DAILY Amlodipine Besylate 10 mg PO DAILY 06/18/18 Cyanocobalamin (Vitamin B-12) [B-12] 500 mcg PO DAILY 06/18/18 Docusate Sodium [Colace -] 100 mg PO ONCE 06/18/18 Hydroxyurea 500 mg PO DAILY 06/18/18 Ranitidine [Zantac -] 150 mg PO BID 06/18/18 Rivaroxaban [Xarelto -] 20 mg PO DAILY 06/18/18 Saccharomyces Boulardii [Probiotic] 250 mg PO BID 06/18/18 Sennosides [Senna Lax] 8.6 mg PO PRN PRN 06/18/18 Sotalol HCl [Betapace] 120 mg PO BID 06/18/18 Klonopin - 0.25 mg PO DAILY 06/28/18 Family Disease History - Family Disease History Family Disease History: Other: Father (CVA) Vital Signs Temperature 98 F 06/28/18 08:00 Pulse Rate 62 06/28/18 08:00 Respiratory Rate 20 06/28/18 08:00 Blood Pressure 143/52 06/28/18 08:00 O2 Sat by Pulse Oximetry (%) 99 06/28/18 03:15 CACHECTIC , Frail Eyes: Yes: Conjunctiva Clear, EOM Intact HENT: Yes: Atraumatic, Normocephalic Neck: Yes: Supple Respiratory: Yes: Regular, CTA Bilaterally Gastrointestinal: Yes: Normal Bowel Sounds, Soft Cardiovascular: Yes: Regular Rate and Rhythm Peripheral Pulses: 2+ Left Doralis Pedis, 2+ Right Dorsalis Pedis Assessment/Plan 87 y/o patient with thrombocytosis/myelofibosis/transfusion dependent anemia/ iron overload/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 gi losses ? dilutional/fluid shift as Hgb10 on 23 and 7.7 today would transfuse PRBCs prior to discharge afib/portal vein thrombosis-- to change to eliquis 2.5mg bid--discussed with ann marie villavicencio--to notify Overall very guarded/poor prognosis continuig palliative/supportive care per patient/family wishes discussed with daughter
[2018-06-30 06:55] LABS: BASO % 0.8 % (0-2.0); EOS % 1.8 % (0-4.5); HEMOGLOBIN 9.6 GM/dL (10.7-15.3); LYMPH % 10.2 % (8-40); MCH 28.1 pg (25.7-33.7); MEAN PLT VOLUME 8.3 fl (7.5-11.1); MONO % 15.3 % (3.8-10.2); NEUT % 71.9 % (42.8-82.8); PLATELET COUNT 516 K/MM3 (134-434); RBC 3.41 M/mm3 (3.60-5.2); RDW 15.5 % (11.6-15.6); WHITE BLOOD COUNT 5.5 K/mm3 (4.0-10.0)
[2018-06-30 07:10] LABS: ANION GAP 7 MMOL/L (8-16); BLOOD UREA NITROGEN 21 mg/dL (7-18); CALCIUM 8.5 mg/dL (8.5-10.1); CHLORIDE 100 mmol/L (98-107); CO2 30 mmol/L (21-32); CREATININE 0.5 mg/dL (0.55-1.02); GLUCOSE,RANDOM 114 mg/dL (74-106); PHOSPHOROUS 2.1 mg/dL (2.5-4.9); POTASSIUM 4.7 mmol/L (3.5-5.1); SODIUM 137 mmol/L (136-145)
[2018-06-30] MEDS: AMINO ACIDS/PROTEIN HYDROLYS 30 ML LIQUID.PKT PO SCH (08:55)
[2018-06-30] MEDS ORDERED: PT OWN MED DRAWER 7, Y5N ONE (10:26)
[2018-06-30] MEDS ORDERED: cefTRIAXone SODIUM 1 GM VIAL ONE (10:27)
[2018-06-30] MEDS ORDERED: DEXTROSE 5%-WATER - 50 ML IVPB ONE (10:27)
[2018-06-30] MEDS: LACTOBACILLUS ACIDOPHILUS 1 TABLET PO SCH ×2 (10:31→22:37)
[2018-06-30] MEDS: CYANOCOBALAMIN 1,000 MCG TABLET (FP) PO SCH (10:32)
[2018-06-30] MEDS: RANITIDINE HCL 150 MG TABLET (FP) PO SCH ×2 (10:32→22:38)
[2018-06-30] MEDS: ZINC SULFATE 220 MG CAPSULE (FP) PO SCH (10:32)
[2018-06-30] MEDS: DOCUSATE SODIUM 100 MG CAPSULE (FP) PO SCH ×2 (10:32→22:37)
[2018-06-30] MEDS: APIXABAN 2.5 MG TABLET PO SCH ×2 (10:32→22:38)
[2018-06-30] MEDS: amLODIPine BESYLATE 10 MG TABLET (FP) PO SCH (10:33)
[2018-06-30] MEDS: SOTALOL HCL 80 MG TABLET (FP) PO SCH ×2 (10:33→22:37)
[2018-06-30] MEDS: HYDROXYUREA 500 MG CAPSULE PO SCH (10:34)
[2018-06-30] MEDS: CEFTRIAXONE 1 GM in DEXTROSE 5%-WATER - 50 ML IVPB SCH (10:34)
[2018-06-30 10:45] LABS: ANISOCYTOSIS 1+; MACROCYTOSIS 1+; PLATELET ESTIMATE INCREASED; TARGET CELLS 1+
[2018-06-30] MEDS: LIDOCAINE 5% TOPICAL PATCH TP SCH (10:55)
[2018-06-30] MEDS: POLYETHYLENE GLYCOL 3350 255 GM BTL PO SCH ×2 (10:55→22:41)
[2018-06-30] MEDS: ACETAMINOPHEN 325 MG TABLET (FP) PO PRN ×2 (10:56→17:31)
--- NOTE | 2018-06-30 13:02 | PN ---
Teaching Attending Note Name of Resident: Royce Delaney ATTENDING PHYSICIAN STATEMENT I saw and evaluated the patient. I reviewed the resident's note and discussed the case with the resident. I agree with the resident's findings and plan as documented. SUBJECTIVE:asymptomatic. denies CP, SOB, fever,chills, N/V/C/D OBJECTIVE: Last Vital Signs Temp Pulse Resp BP Pulse Ox 98 F 61 20 153/53 94 L 06/30/18 10:00 06/30/18 10:00 06/30/18 10:00 06/30/18 10:00 06/30/18 09:00 General NAD Extremities L shoulder in immobilizer, able to move fingers freely. pulses 2+ ASSESSMENT AND PLAN: 87yo F with PMH MALT/Lymphoma, portal vein thrombosis, Afib on xarelto, HTN, CHF , Hashimotos presented to the ER after mechanical fall and found ot have sustained L humeral fracture and UTI 1. L humeral fracture- s/p mechanical fall. shoulder in immobilizer. light movement. pain control. no surgical intervention. PT assessment 2. Hyperkalemia- given kayexylate. resolved 3. hypomagnesemia- resolved 4. hypophosphatemia- neutraphos 4. UTI- hx of sensitive Ecoli and Proteus treated in 05/2018. on Ceftriaxone day 3. f/u Cx 5. Hyponatremia- dehydration. resolved. 6. Thrombocytopenia 7. Normocytic anemia- multifactorial. receives frequent transfusions.s/p 1 unit PRBC with good response.no signs of bleeding. no indication for transfusion. normal transfusion thresholds 8. Afib on Xarelto- rate controlled. cont home medications. at [facility] suggestion switch pradaxa to eliquis (dose adjusted due to age and weight). will d/w cardio 9. HTN- controlled 10. CHF- no signs of volume overload. clinically euvolemic. 11. Tucker 12. DVT ppx- Xarelto 13. PT assessment. pt may benefit from [facility]. prefers [facility]. 14. DNR/DNI
[2018-06-30] MEDS ORDERED: NAPH,MB-DB/K PH,MBDB POWDER PACKET PO ONE (13:45)
--- NOTE | 2018-06-30 14:29 | PN ---
Progress Note (short form) - Note Progress Note: cc fall, humeral fx s: no cp, palps, dizziness, lightheadedness. pain in arm when changing position Current Medications Acetaminophen (Tylenol -) 650 mg PO Q6H PRN PRN Reason: PAIN LEVEL 6-10 Last Admin: 06/30/18 10:56 Dose: 650 mg Amino Acids (Prosource No Carb Liquid Pkt) 30 ml PO DAILY@0800 [facility] Last Admin: 06/30/18 08:55 Dose: 30 ml Amlodipine Besylate (Norvasc -) 10 mg PO DAILY [facility] Last Admin: 06/30/18 10:33 Dose: 10 mg Apixaban (Eliquis -) 2.5 mg PO BID [facility] Last Admin: 06/30/18 10:32 Dose: 2.5 mg Clonazepam (Klonopin -) 0.25 mg PO HS [facility] Last Admin: 06/29/18 22:50 Dose: 0.25 mg Cyanocobalamin (Vitamin B12 -) 500 mcg PO DAILY [facility] Last Admin: 06/30/18 10:32 Dose: 500 mcg Docusate Sodium (Colace -) 100 mg PO BID [facility] Last Admin: 06/30/18 10:32 Dose: 100 mg Hydroxyurea (Hydrea -) 500 mg PO DAILY [facility] Last Admin: 06/30/18 10:34 Dose: 500 mg Ceftriaxone Sodium 1 gm/ (Dextrose) 50 mls @ 100 mls/hr IVPB DAILY [facility]; Protocol Last Admin: 06/30/18 10:34 Dose: 100 mls/hr Lactobacillus Acidophilus (Bacid -) 1 tab PO BID [facility] Last Admin: 06/30/18 10:31 Dose: 1 tab Lidocaine (Lidoderm Patch -) 1 patch TP DAILY [facility] Last Admin: 06/30/18 10:55 Dose: 1 patch Miscellaneous (Lidoderm Patch Removal) 1 each MC DAILY@2200 [facility] Last Admin: 06/29/18 22:53 Dose: 1 each Non-Formulary Medication (Naloxegol Oxalate [Movantik]) 12.5 mg PO [facility] Polyethylene Glycol (Miralax (For Bowel Prep) -) 17 gm PO BID [facility] Last Admin: 06/30/18 10:55 Dose: 17 gm Ranitidine HCl (Zantac -) 150 mg PO BID [facility] Last Admin: 06/30/18 10:32 Dose: 150 mg Senna (Senna -) 2 tab PO HS [facility] Last Admin: 06/29/18 22:52 Dose: 2 tab Sotalol HCl (Betapace -) 120 mg PO BID [facility] Last Admin: 06/30/18 10:33 Dose: 120 mg Zinc Sulfate (Orazinc -) 220 mg PO DAILY [facility] Last Admin: 06/30/18 10:32 Dose: 220 mg Vital Signs: Vital Signs Period Temp Pulse Resp BP Sys/Conde Pulse Ox Last 24 Hr 97.7 F-98.8 F 58-78 18-22 122-153/50-70 94-94 Constitutional: Yes: Well Nourished, No Distress, Calm Eyes: Yes: Conjunctiva Clear, EOM Intact HENT: Yes: Atraumatic, Normocephalic Neck: Yes: Supple Respiratory: Yes: Regular, CTA Bilaterally Gastrointestinal: Yes: Normal Bowel Sounds, Soft Cardiovascular: Yes: Regular Rate and Rhythm Edema: No Peripheral Pulses: 2+ Left Doralis Pedis, 2+ Right Dorsalis Pedis Psychiatric: Yes: Alert, Oriented Assessment/Plan EKG: sinus, significant baseline artifact humeral fx - ortho consulted, family wishes to decline surgery, pain control per primary team Afib - on sotalol, continue, rate controlled - Xarelto held in setting of recent fall - heme recommended starting eliquis instead, given dose adjustments for age >80 , weight < 60kg, agree with eliquis, continue - if continued episodes of fall would consider risk vs benefits of continued anticoagulation, patient denies frequent falls and usually uses walker, outpatient follow up with Dr. Loaiza to discuss Anemia - h/o heme malignancy, receiving PRBC transfusion - stable, anticoagulation resumed with eliquis as above hyponatremia - receiving IVF, manage per primary team h/o portal vein thrombosis - on eliquis now as above
--- NOTE | 2018-06-30 17:24 | PN ---
Physical Exam: SUBJECTIVE: Patient seen and examined at bedside. Complains of low back pain. OBJECTIVE: Vital Signs Period Temp Pulse Resp BP Sys/Conde Pulse Ox Last 24 Hr 97.7 F-98.8 F 58-78 18-22 111-153/41-70 94-94 Gen: Sleeping comfortably in bed. Has brace wrapped around chest with wrist strap (pt not using sling/wrist strap) HEENT: NCAT, EOMI, moist membranes Neck: supple, no jvd Cardio: rrr, normal s1s2, no m/r/g Pulm: cta b/l Abd: nondistended, soft, nontender, +bs. Back no point tenderness Ext: L shoulder limited ROM due to pain. nontender to palpation. Laboratory Results - last 24 hr 06/30/18 06/30/18 06:30 06:30 WBC 5.5 RBC 3.41 L Hgb 9.6 L Hct 29.0 L D MCV 85.0 MCH 28.1 MCHC 33.0 RDW 15.5 Plt Count 516 H MPV 8.3 Absolute Neuts (auto) 4.0 Neutrophils % 71.9 Neutrophils % (Manual) 75.2 Band Neutrophils % 2.0 Lymphocytes % 10.2 Lymphocytes % (Manual) 9.9 Monocytes % 15.3 H Monocytes % (Manual) 9 Eosinophils % 1.8 Eosinophils % (Manual) 2.0 D Basophils % 0.8 Basophils % (Manual) 1.0 D Myelocytes % (Man) 0 Promyelocytes % (Man) 0 Blast Cells % (Manual) 0 Nucleated RBC % 0 Metamyelocytes 1 D Hypochromia 0 Platelet Estimate Increased Polychromasia 1+ Poikilocytosis 1+ Anisocytosis 1+ Microcytosis 1+ Macrocytosis 1+ Target Cells 1+ Sodium 137 Potassium 4.7 Chloride 100 Carbon Dioxide 30 Anion Gap 7 L BUN 21 H Creatinine 0.5 L Creat Clearance w eGFR > 60 Random Glucose 114 H Calcium 8.5 Phosphorus 2.1 L Magnesium 2.0 Active Medications Generic Name Dose Route Start Last Admin Trade Name Freq PRN Reason Stop Dose Admin Acetaminophen 650 mg 06/29/18 03:53 06/30/18 10:56 Tylenol - PO 650 mg Q6H PRN Administration PAIN LEVEL 6-10 Amino Acids 30 ml 06/28/18 08:00 06/30/18 08:55 Prosource No Carb Liquid Pkt PO 30 ml DAILY@0800 MARGARITA Administration Amlodipine Besylate 10 mg 06/28/18 10:00 06/30/18 10:33 Norvasc - PO 10 mg DAILY MARGARITA Administration Apixaban 2.5 mg 06/29/18 22:00 06/30/18 10:32 Eliquis - PO 2.5 mg BID MARGARITA Administration Clonazepam 0.25 mg 06/29/18 22:00 06/29/18 22:50 Klonopin - PO 0.25 mg HS MARGARITA Administration Cyanocobalamin 500 mcg 06/28/18 10:00 06/30/18 10:32 Vitamin B12 - PO 500 mcg DAILY MARGARITA Administration Docusate Sodium 100 mg 06/28/18 10:00 06/30/18 10:32 Colace - PO 100 mg BID MARGARITA Administration Hydroxyurea 500 mg 06/28/18 10:00 06/30/18 10:34 Hydrea - PO 500 mg DAILY MARGARITA Administration Ceftriaxone Sodium 1 gm/ 50 mls @ 100 mls/hr 06/28/18 10:00 06/30/18 10:34 Dextrose IVPB 100 mls/hr DAILY MARGARITA Administration Protocol Lactobacillus Acidophilus 1 tab 06/28/18 10:00 06/30/18 10:31 Bacid - PO 1 tab BID MARGARITA Administration Lidocaine 1 patch 06/28/18 10:00 06/30/18 10:55 Lidoderm Patch - TP 1 patch DAILY MARGARITA Administration Miscellaneous 1 each 06/28/18 22:00 06/29/18 22:53 Lidoderm Patch Removal MC 1 each DAILY@2200 MARGARITA Administration Non-Formulary Medication 12.5 mg 06/28/18 22:00 Naloxegol Oxalate [Movantik] PO HS MARGARITA Polyethylene Glycol 17 gm 06/28/18 10:00 06/30/18 10:55 Miralax (For Bowel Prep) - PO 17 gm BID MAGRARITA Administration Ranitidine HCl 150 mg 06/28/18 10:00 06/30/18 10:32 Zantac - PO 150 mg BID MARGARITA Administration Senna 2 tab 06/28/18 22:00 06/29/18 22:52 Senna - PO 2 tab HS MARGARITA Administration Sotalol HCl 120 mg 06/28/18 10:00 06/30/18 10:33 Betapace - PO 120 mg BID MARGARITA Administration Zinc Sulfate 220 mg 06/28/18 10:00 06/30/18 10:32 Orazinc - PO 220 mg DAILY MARGARITA Administration ASSESSMENT/PLAN: 87 y/o F w/PMH of HTN, myeloproliferative d/o, MALT lymphoma, A-fib (on lovenox) , mitral valve prolapse, hashimotos thyroiditis, GERD, portal vein thrombosis, splenic infarcts, T12 compression fracture presents to the ER from oncologist office (Dr. Kline) due to 1 week of weakness. # Acute nondisplaced proximal humeral fracture - S/P mechanical fall, Patient currently not interested in surgery, Spoke with Farhan (Daugther/Proxy) who is aware of No surgery at this time - Left Shoulder XRay: Equivocal acute nondisplaced proximal humeral fracture as noted above. - On Exam, UE Muscle strength 5/5 b/l, Left shoulder tender to palpation with Limited ROM, C5-T1 gross sensation intact - Left Shoulder currently in immobilizer - Pain control via Tylenol 650 mg PO Q6H PRN and Lidoderm Patch TP DAILY - PT assessment pending - Orthopedic (Dr. Resendiz) consulted, No surgery needed, Shoulder sling, Ice if needed, Xrays of the c-spine ordered - C-Spine XRay: Incomplete visualization of spine. Further imaging needed. # Hyperkalemia - K+ 5.4 on admission - Given Kayxlate 15 mg PO x1 - Repeat K 4.2, resolved 3. UTI - UA: Nitrite positive, 1+ Blood, 3+ Leukocyte esterase, 319 WBC - Urine Cx Lactose fermenting negative bacilli - Urine Cx (05/05/18) positive for E. Coli, Proteus mirabalis, Enterococcus, - Continue on Ceftriaxone Sodium 1 gm IVPB DAILY (Day 3) 4. Hyponatremia - 129 on admission - Asymtomatic, Likely due to dehydration from low oral intake - Resolved with NS @ 42 mls/hr, D/C'ed IVF 5. Anemia - has hx of multiple transfusions - H&H on admission of 8.7/25.6, today 7.7/23.6 - Stool occult blood pending - 1 Unit pRBCs pending for transfusion (06/29), repeat CBC after 6. Atrial fibrillation - Rate controlled - Continue Sotalol 120 mg PO BID - Hold Xarelto - Start Eliquis 7. Insomnia - Continue home dose Klonopin 0.25 mg PO DAILY 8. PPx - DVT: SCDs 9. FEN - PO Fluids - Continue to monitor electrolytes - Na controlled diet Dispo: patient prefers [facility] on dc Visit type - Emergency Visit Emergency Visit: No - New Patient This patient is new to me today: No - Critical Care Critical Care patient: No - Discharge Referral Referred to [facility] No
[2018-06-30] MEDS: SENNOSIDES 8.6MG TABLET (FP) PO SCH (22:38)
[2018-06-30] MEDS: LIDOCAINE PATCH REMOVAL MC SCH (22:40)
[2018-06-30] MEDS: clonazePAM 0.5 MG TABLET PO SCH (22:45)
--- NOTE | 2018-06-30 23:13 | PN ---
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 gi losses ? dilutional/fluid shift as Hgb10 on 23 and 7.7 today s/p PRBCs with hgb 9.6 afib/portal vein thrombosis-- to change to eliquis 2.5mg bid--discussed with ann marie villavicencio--to notify Overall very guarded/poor prognosis continuig palliative/supportive care per patient/family wishes Will recommend hospice care--ongoing discussions with family
[2018-07-01 08:29] LABS: BASO % 0.3 % (0-2.0); EOS % 0.9 % (0-4.5); HEMATOCRIT 31.1 % (32.4-45.2); HEMOGLOBIN 9.9 GM/dL (10.7-15.3); LYMPH % 9.5 % (8-40); MEAN CELL VOLUME 87.3 fl (80-96); MEAN PLT VOLUME 7.8 fl (7.5-11.1); MONO % 11.5 % (3.8-10.2); NEUT % 77.8 % (42.8-82.8); PLATELET COUNT 608 K/MM3 (134-434); RBC 3.56 M/mm3 (3.60-5.2); RDW 16.3 % (11.6-15.6); WHITE BLOOD COUNT 6.9 K/mm3 (4.0-10.0)
--- NOTE | 2018-07-01 08:33 | PN ---
Physical Exam: SUBJECTIVE: Patient seen and examined this AM. Pt lethargic but easily arousable , though repeatedly required awakening during encounter. Pt unable to speak or respond appropriately to questioning, though pt attempting to respond, unable to form words. Pt not in any acute distress and able to shake head no when asked about pain. She also denied pain in her left arm at this time. OBJECTIVE: Vital Signs Period Temp Pulse Resp BP Sys/Conde Pulse Ox Last 24 Hr 97.9 F-98.7 F 52-78 18-20 111-153/41-59 94-94 GENERAL: Lethargic but easily arousable to voice, no acute distress HEAD: Normocephalic, atraumatic. EYES: PERRL, no scleral icterus EARS, NOSE, THROAT: Moist mucous membranes. NECK: supple without lymphadenopathy LUNGS: CTA b/l, no crackles or wheezes HEART: Irregularly irregular, normal S1 and S2 without murmur, rub or gallop. ABDOMEN: Soft, nontender to palpation, normoactive bowel sounds MUSCULOSKELETAL: No bony deformities or tenderness. Left arm not currently in sling UPPER EXTREMITIES: 2+ pulses, warm, well-perfused. No cyanosis. No clubbing. Dependent edema in UE b/l more on the Left LOWER EXTREMITIES: 2+ pulses, warm, well-perfused. No calf tenderness. 1+ nonpitting edema NEUROLOGICAL: Cranial nerves II-XII grossly intact. Pt unable to verbally respond to questioning SKIN: Warm, dry, normal turgor, petechiea noted on UE and LE b/l Laboratory Results - last 24 hr 06/30/18 06:30 Neutrophils % (Manual) 75.2 Band Neutrophils % 2.0 Lymphocytes % (Manual) 9.9 Monocytes % (Manual) 9 Eosinophils % (Manual) 2.0 D Basophils % (Manual) 1.0 D Myelocytes % (Man) 0 Promyelocytes % (Man) 0 Blast Cells % (Manual) 0 Metamyelocytes 1 D Hypochromia 0 Platelet Estimate Increased Polychromasia 1+ Poikilocytosis 1+ Anisocytosis 1+ Microcytosis 1+ Macrocytosis 1+ Target Cells 1+ Active Medications Generic Name Dose Route Start Last Admin Trade Name Freq PRN Reason Stop Dose Admin Acetaminophen 650 mg 06/29/18 03:53 06/30/18 17:31 Tylenol - PO 650 mg Q6H PRN Administration PAIN LEVEL 6-10 Amino Acids 30 ml 06/28/18 08:00 06/30/18 08:55 Prosource No Carb Liquid Pkt PO 30 ml DAILY@0800 MARGARITA Administration Amlodipine Besylate 10 mg 06/28/18 10:00 06/30/18 10:33 Norvasc - PO 10 mg DAILY MARGARITA Administration Apixaban 2.5 mg 06/29/18 22:00 06/30/18 22:38 Eliquis - PO 2.5 mg BID MARGARITA Administration Clonazepam 0.25 mg 06/29/18 22:00 06/30/18 22:45 Klonopin - PO 0.25 mg HS MARGARITA Administration Cyanocobalamin 500 mcg 06/28/18 10:00 06/30/18 10:32 Vitamin B12 - PO 500 mcg DAILY MARGARITA Administration Docusate Sodium 100 mg 06/28/18 10:00 06/30/18 22:37 Colace - PO 100 mg BID MARGARITA Administration Hydroxyurea 500 mg 06/28/18 10:00 06/30/18 10:34 Hydrea - PO 500 mg DAILY MARGARITA Administration Ceftriaxone Sodium 1 gm/ 50 mls @ 100 mls/hr 06/28/18 10:00 06/30/18 10:34 Dextrose IVPB 100 mls/hr DAILY [facility] Administration Protocol Lactobacillus Acidophilus 1 tab 06/28/18 10:00 06/30/18 22:37 Bacid - PO 1 tab BID MARGARITA Administration Lidocaine 1 patch 06/28/18 10:00 06/30/18 10:55 Lidoderm Patch - TP 1 patch DAILY MARGARITA Administration Miscellaneous 1 each 06/28/18 22:00 06/30/18 22:40 Lidoderm Patch Removal MC Not Given DAILY@2200 [facility] Non-Formulary Medication 12.5 mg 06/28/18 22:00 Naloxegol Oxalate [Movantik] PO HS [facility] Polyethylene Glycol 17 gm 06/28/18 10:00 06/30/18 22:41 Miralax (For Bowel Prep) - PO Not Given BID MARGARITA Ranitidine HCl 150 mg 06/28/18 10:00 06/30/18 22:38 Zantac - PO 150 mg BID MARGARITA Administration Senna 2 tab 06/28/18 22:00 06/30/18 22:38 Senna - PO 2 tab HS MARGARITA Administration Sotalol HCl 120 mg 06/28/18 10:00 06/30/18 22:37 Betapace - PO 120 mg BID MARGARITA Administration Zinc Sulfate 220 mg 06/28/18 10:00 06/30/18 10:32 Orazinc - PO 220 mg DAILY MARGARITA Administration ASSESSMENT/PLAN:
--- NOTE | 2018-07-01 08:42 | PN ---
Teaching Attending Note Name of Resident: Zane Hale ATTENDING PHYSICIAN STATEMENT I saw and evaluated the patient. I reviewed the resident's note and discussed the case with the resident. I agree with the resident's findings and plan as documented with exceptions below. SUBJECTIVE: Patient seen and examined. lethargic, eyes opening on frequent verbal cues, moaning, few mono syllable answers, not very co-operative with the exam. OBJECTIVE: Vital Signs Period Temp Pulse Resp BP Sys/Conde Pulse Ox Last 24 Hr 97.9 F-98.7 F 52-78 18-20 111-153/41-59 94-94 Intake & Output 06/28/18 06/29/18 06/30/18 07/01/18 23:59 23:59 23:59 23:59 Intake Total 1525 1150 300 200 Output Total 2 Balance 1525 1150 298 200 Weight 99 lb 99 lb General: lethargic, tachypneic in bed, eye opening with voice, but minimal verbal responses, Chest: bilateral wheezing, positive air entry but limited exam, decreased breath sounds at bases Abdomen: soft, distended, positive bowel sounds, moaning on exam, but no point tenderness/voluntary or involuntary guarding or rigidity appreciated Extremities: no edema Neuro: responds to name, but lethargic, eye opening with voice, minimal verbal responses, facial symmetry, moves all extremities spontaneously and symmetrically Home Medications Medication Instructions Recorded Amino Acids/Protein Hydrolys 30 ml PO DAILY 06/18/18 [Pro-Stat Sugar Free Liquid Pkt] Amlodipine Besylate 10 mg PO DAILY 06/18/18 Cyanocobalamin (Vitamin B-12) 500 mcg PO DAILY 06/18/18 [B-12] Docusate Sodium [Colace -] 100 mg PO ONCE 06/18/18 Hydroxyurea 500 mg PO DAILY 06/18/18 Ranitidine [Zantac -] 150 mg PO BID 06/18/18 Rivaroxaban [Xarelto -] 20 mg PO DAILY 06/18/18 Saccharomyces Boulardii [Probiotic] 250 mg PO BID 06/18/18 Sennosides [Senna Lax] 8.6 mg PO PRN PRN 06/18/18 Sotalol HCl [Betapace] 120 mg PO BID 06/18/18 Klonopin - 0.25 mg PO DAILY 06/28/18 Active Medications Acetaminophen (Tylenol -) 650 mg PO Q6H PRN PRN Reason: PAIN LEVEL 6-10 Last Admin: 06/30/18 17:31 Dose: 650 mg Amino Acids (Prosource No Carb Liquid Pkt) 30 ml PO DAILY@0800 [facility] Last Admin: 06/30/18 08:55 Dose: 30 ml Amlodipine Besylate (Norvasc -) 10 mg PO DAILY [facility] Last Admin: 06/30/18 10:33 Dose: 10 mg Apixaban (Eliquis -) 2.5 mg PO BID [facility] Last Admin: 06/30/18 22:38 Dose: 2.5 mg Clonazepam (Klonopin -) 0.25 mg PO HS [facility] Last Admin: 06/30/18 22:45 Dose: 0.25 mg Cyanocobalamin (Vitamin B12 -) 500 mcg PO DAILY [facility] Last Admin: 06/30/18 10:32 Dose: 500 mcg Docusate Sodium (Colace -) 100 mg PO BID [facility] Last Admin: 06/30/18 22:37 Dose: 100 mg Hydroxyurea (Hydrea -) 500 mg PO DAILY [facility] Last Admin: 06/30/18 10:34 Dose: 500 mg Ceftriaxone Sodium 1 gm/ (Dextrose) 50 mls @ 100 mls/hr IVPB DAILY [facility]; Protocol Last Admin: 06/30/18 10:34 Dose: 100 mls/hr Lactobacillus Acidophilus (Bacid -) 1 tab PO BID [facility] Last Admin: 06/30/18 22:37 Dose: 1 tab Lidocaine (Lidoderm Patch -) 1 patch TP DAILY [facility] Last Admin: 06/30/18 10:55 Dose: 1 patch Miscellaneous (Lidoderm Patch Removal) 1 each MC DAILY@2200 [facility] Last Admin: 06/30/18 22:40 Dose: Not Given Non-Formulary Medication (Naloxegol Oxalate [Movantik]) 12.5 mg PO [facility] Polyethylene Glycol (Miralax (For Bowel Prep) -) 17 gm PO BID [facility] Last Admin: 06/30/18 22:41 Dose: Not Given Ranitidine HCl (Zantac -) 150 mg PO BID [facility] Last Admin: 06/30/18 22:38 Dose: 150 mg Senna (Senna -) 2 tab PO HS [facility] Last Admin: 06/30/18 22:38 Dose: 2 tab Sotalol HCl (Betapace -) 120 mg PO BID [facility] Last Admin: 06/30/18 22:37 Dose: 120 mg Zinc Sulfate (Orazinc -) 220 mg PO DAILY [facility] Last Admin: 06/30/18 10:32 Dose: 220 mg Laboratory Results - last 24 hr 06/30/18 07/01/18 06:30 06:20 WBC 6.9 RBC 3.56 L Hgb 9.9 L Hct 31.1 L MCV 87.3 MCH 28.0 MCHC 32.0 RDW 16.3 H Plt Count 608 H MPV 7.8 Absolute Neuts (auto) 5.3 Neutrophils % 77.8 Neutrophils % (Manual) 75.2 Band Neutrophils % 2.0 Lymphocytes % 9.5 Lymphocytes % (Manual) 9.9 Monocytes % 11.5 H Monocytes % (Manual) 9 Eosinophils % 0.9 Eosinophils % (Manual) 2.0 D Basophils % 0.3 Basophils % (Manual) 1.0 D Myelocytes % (Man) 0 Promyelocytes % (Man) 0 Blast Cells % (Manual) 0 Nucleated RBC % 0 Metamyelocytes 1 D Hypochromia 0 Platelet Estimate Increased Polychromasia 1+ Poikilocytosis 1+ Anisocytosis 1+ Microcytosis 1+ Macrocytosis 1+ Target Cells 1+ Microbiology 06/28/18 00:49 Urine - Urine Clean Catch Urine Culture - Final Escherichia Coli ASSESSMENT AND PLAN: 87yo F with PMH MALT/Lymphoma, portal vein thrombosis, Afib on xarelto, HTN, CHF , Hashimotos presented to the ER after mechanical fall and found ot have sustained L humeral fracture and UTI -Acute on chronic hypoxic respiratory distress -Bilatera; pleural effusions with atelectasis, suspect from acute on chronic diastolic heart failure in the setting of hydration/transfusion -Left non displaced humeral fracture -Mechanical fall -Lower uncomplicated E. coli UTI -Hypovolumic hyponatremia, resolved -Hyperkalemia, s/p 1 dose of kayexalate, resolved -Hypomagnesemia -Hypophosphatemia -MALT lymphoma -Portal vein thrombosis -Transfusion dependent anemia -Atrial fibrillation -HTN -CHF Plan: CXR noted, lasix 20 mg IV BID, CT chest and abdominal xray. Discussed with Dr. Wade, in agreement with diuresis. Check 2D echo. Non operative management, Left shoulder immobilizer, PT, pain control with tylenol/lidocaine patch s/p 3 days of ceftriaxone. Urine cultures noted. Replete mg/phos prn. s/p 1 unit PRBC with appropriate response. Cardiology input noted, xarelto changed to eliquis renal dosing, outpatient follow up with Dr. Loaiza. No clinical evidence of volume overload. Continue amlodipine/sotalol/hydroxyurea DVTPPX as above Dispo hold disposition given lethargy and pleural effusions. Code status DNR/DNI. Palliative care consult to address overall goals of care, hospice discussions in progress per heme/onc.
[2018-07-01] MEDS: AMINO ACIDS/PROTEIN HYDROLYS 30 ML LIQUID.PKT PO SCH (09:09)
[2018-07-01 09:20] LABS: ANION GAP 7 MMOL/L (8-16); BLOOD UREA NITROGEN 29 mg/dL (7-18); CALCIUM 9.1 mg/dL (8.5-10.1); CHLORIDE 100 mmol/L (98-107); CO2 30 mmol/L (21-32); CREATININE 0.6 mg/dL (0.55-1.02); GLUCOSE,RANDOM 116 mg/dL (74-106); PHOSPHOROUS 3.7 mg/dL (2.5-4.9); POTASSIUM 5.5 mmol/L (3.5-5.1); SODIUM 137 mmol/L (136-145)
[2018-07-01] MEDS ORDERED: cefTRIAXone SODIUM 1 GM VIAL ONE (09:33)
[2018-07-01] MEDS ORDERED: DEXTROSE 5%-WATER - 50 ML IVPB ONE (09:33)
[2018-07-01] MEDS ORDERED: PT OWN MED DRAWER 7, Y5N ONE (09:33)
[2018-07-01] MEDS: DOCUSATE SODIUM 100 MG CAPSULE (FP) PO SCH (09:41)
[2018-07-01] MEDS: RANITIDINE HCL 150 MG TABLET (FP) PO SCH (09:41)
[2018-07-01] MEDS: SOTALOL HCL 80 MG TABLET (FP) PO SCH (09:41)
[2018-07-01] MEDS: ZINC SULFATE 220 MG CAPSULE (FP) PO SCH (09:41)
[2018-07-01] MEDS: CEFTRIAXONE 1 GM in DEXTROSE 5%-WATER - 50 ML IVPB SCH (09:41)
[2018-07-01] MEDS: amLODIPine BESYLATE 10 MG TABLET (FP) PO SCH (09:42)
[2018-07-01] MEDS: APIXABAN 2.5 MG TABLET PO SCH (09:42)
[2018-07-01] MEDS: CYANOCOBALAMIN 1,000 MCG TABLET (FP) PO SCH (09:42)
[2018-07-01] MEDS: LACTOBACILLUS ACIDOPHILUS 1 TABLET PO SCH (09:42)
[2018-07-01] MEDS: HYDROXYUREA 500 MG CAPSULE PO SCH (09:43)
[2018-07-01] MEDS: LIDOCAINE 5% TOPICAL PATCH TP SCH (09:43)
[2018-07-01] MEDS: POLYETHYLENE GLYCOL 3350 255 GM BTL PO SCH (09:54)
--- NOTE | 2018-07-01 11:04 | DS ---
Physical Exam: SUBJECTIVE: Patient seen and examined this AM. Pt lethargic but easily arousable , though repeatedly required awakening during encounter. Pt unable to speak or respond appropriately to questioning, though pt attempting to respond, unable to form words. Pt not in any acute distress and able to shake head no when asked about pain. She also denied pain in her left arm at this time. OBJECTIVE: Vital Signs Period Temp Pulse Resp BP Sys/Conde Pulse Ox Last 24 Hr 97.9 F-98.7 F 52-78 18-20 111-141/41-59 94 PHYSICAL EXAM GENERAL: Lethargic but easily arousable to voice, no acute distress HEAD: Normocephalic, atraumatic. EYES: PERRL, no scleral icterus EARS, NOSE, THROAT: Moist mucous membranes. NECK: supple without lymphadenopathy LUNGS: CTA b/l, no crackles or wheezes HEART: Irregularly irregular, normal S1 and S2 without murmur, rub or gallop. ABDOMEN: Soft, nontender to palpation, normoactive bowel sounds MUSCULOSKELETAL: No bony deformities or tenderness. Left arm not currently in sling UPPER EXTREMITIES: 2+ pulses, warm, well-perfused. No cyanosis. No clubbing. Dependent edema in UE b/l more on the Left LOWER EXTREMITIES: 2+ pulses, warm, well-perfused. No calf tenderness. 1+ nonpitting edema NEUROLOGICAL: Cranial nerves II-XII grossly intact. Pt unable to verbally respond to questioning SKIN: Warm, dry, normal turgor, petechiea noted on UE and LE b/l LABS Laboratory Results - last 24 hr 06/30/18 07/01/18 07/01/18 06:30 06:20 06:20 WBC 6.9 RBC 3.56 L Hgb 9.9 L Hct 31.1 L MCV 87.3 MCH 28.0 MCHC 32.0 RDW 16.3 H Plt Count 608 H MPV 7.8 Absolute Neuts (auto) 5.3 Neutrophils % 77.8 Neutrophils % (Manual) 75.2 Band Neutrophils % 2.0 Lymphocytes % 9.5 Lymphocytes % (Manual) 9.9 Monocytes % 11.5 H Monocytes % (Manual) 9 Eosinophils % 0.9 Eosinophils % (Manual) 2.0 D Basophils % 0.3 Basophils % (Manual) 1.0 D Myelocytes % (Man) 0 Promyelocytes % (Man) 0 Blast Cells % (Manual) 0 Nucleated RBC % 0 Metamyelocytes 1 D Hypochromia 0 Platelet Estimate Increased Polychromasia 1+ Poikilocytosis 1+ Anisocytosis 1+ Microcytosis 1+ Macrocytosis 1+ Target Cells 1+ Sodium 137 Potassium 5.5 H Chloride 100 Carbon Dioxide 30 Anion Gap 7 L BUN 29 H Creatinine 0.6 Creat Clearance w eGFR > 60 Random Glucose 116 H Calcium 9.1 Phosphorus 3.7 IMAGING: CXR/Ribs Radiograph 06/27: mild focal deformity of left 6th rib laterally (acute vs. chronic) L Shoulder Radiograph 06/27: nondisplaced proximal left humeral fracture Head CT 06/27: No acute intracranial pathology or hemorrhage Cervical Spine Radiograph: 06/29: Degenerative changes of C1-C6, no acute fracture noted CXR 07/01: worsening b/l effusions compared with 06/27 HOSPITAL COURSE: Pt was admitted following a mechanical fall. Found to have a nondisplaced fracture of her left proximal humerus. Seen by ortho who did not recommend surgical repair at this time and recommended shoulder sling with ice packs for pain and swelling. Pt was also found to have a UTI with c/s growing peña sensitive E. coli. Pt has been treated with 4 days of IV Rocephin. Pt has established history of transfusion dependent anemia found to be acutely anemic during this admission with H/H as low as 7.6/22.8. She received one unit of PRBCs and H/H is now stable at 9.9/31.1. This morning pt noted to be more tachypnic. CXR noted with larger b/l effusions. Lasix ordered with plan for chest CT. Called and notified by nursing that pt had . Pt was DNR/ DNI. Time of called at 12:18. Family notified at 12:24. Date of Admission:06/28/18 Date of Discharge: 07/01/18 Discharge Summary Reason For Visit: FAILURE TO THRIVE IN ADULT Current Active Problems Failure to thrive in adult (Acute) Condition: Stable - Instructions Diet, Activity, Other Instructions: You were hospitalized following a fall. You were found to have a fracture of your left arm and were seen by an orthopedic surgeon who did not recommend surgery at this time. Continue to use your sling, though you can use your left arm for light activity. You can continue to use ice packs and tylenol for pain. You were also diagnosed with a urinary tract infection on admission and given 4 days of IV antibiotics. You will take oral antibiotics for 3 more days for a total of 7 days of antibiotics. While you were here, your Xarelto was discontinued. Do NOT take this medication anymore. You were started on Eliquis 2.5 mg by mouth twice daily. You will take one Eliquis (2.5 mg) in the morning and one pill at night. Medications: Xarelto discontinued, do not take anymore Eliquis 2.5 mg by mouth, one pill in the morning and one at night Keflex 500 mg by mouth, one pill in the morning and one at night, beginning 07/02 for 3 days (until 07/04/2018) Otherwise continue your home medications as prescribed Referrals: You should be seen by your primary care physician (Dr. Barrios) within one week of leaving the hospital. You should follow up with an orthopedic surgeon (Dr. Resendiz) within two weeks of leaving the hospital. You should follow up with Cardiology (Dr. Loaiza) within two weeks of leaving the hospital. You should follow up with Hematology/Oncology (Dr. Rodriguez) within two weeks of leaving the hospital. If you develop new or worsening symptoms please return to the Emergency Department. Referrals: Lesli Barrios [Primary Care Provider] - 1 Week Raisa Rodriguez MD [Staff Physician] - 2 Weeks Robert Loaiza MD [Staff Physician] - 2 Weeks Hair Resendiz MD [Staff Physician] - 2 Weeks [facility]position: [facility] - Home Medications Comprehensive Discharge Medication List: Ambulatory Orders Amino Acids/Protein Hydrolys [Pro-Stat Sugar Free Liquid Pkt] 30 ml PO DAILY Amlodipine Besylate 10 mg PO DAILY 06/18/18 Cyanocobalamin (Vitamin B-12) [B-12] 500 mcg PO DAILY 06/18/18 Docusate Sodium [Colace -] 100 mg PO ONCE 06/18/18 Hydroxyurea 500 mg PO DAILY 06/18/18 Ranitidine [Zantac -] 150 mg PO BID 06/18/18 Saccharomyces Boulardii [Probiotic] 250 mg PO BID 06/18/18 Sennosides [Senna Lax] 8.6 mg PO PRN PRN 06/18/18 Sotalol HCl [Betapace] 120 mg PO BID 06/18/18 Klonopin - 0.25 mg PO DAILY 06/28/18 Acetaminophen [Tylenol .Regular Strength -] 650 mg PO Q6H PRN tablet 07/01/18 Apixaban [Eliquis -] 2.5 mg PO BID 30 Days #0 tablet 07/01/18 Lidocaine 5% Patch [Lidoderm -] 1 patch TP DAILY patch 07/01/18 Lidocaine Patch Removal [Lidoderm Patch Removal] 1 each MC DAILY@2200 each Polyethylene Glycol 3350 [Miralax 255 gm Btl -] 17 gm PO BID btl 07/01/18 Zinc Sulfate [Orazinc -] 220 mg PO DAILY capsule 07/01/18 This patient is new to me today: Yes Date on this admission: 07/01/18 Emergency Visit: Yes ED Registration Date: 06/28/18 Care time: The patient presented to the Emergency Department on the above date and was hospitalized for further evaluation of their emergent condition. Critical Care patient: No - Discharge Referral Referred to [facility] Med [facility] No
[2018-07-01] MEDS ORDERED: FUROSEMIDE 40 MG/4 ML INJECTABLE VIAL IVPUSH ONE (12:00)
[2018-07-01] MEDS ORDERED: SODIUM POLYSTYRENE SULFONATE 15 GM/60 ML BOTTLE PO ONE (12:30)
--- NOTE | 2018-07-01 12:48 | HOSP ---
Physical Examination Vital Signs: Vital Signs Temperature 98.7 F 07/01/18 06:56 Pulse Rate 58 L 07/01/18 06:56 Respiratory Rate 18 07/01/18 06:56 Blood Pressure 129/58 07/01/18 06:56 O2 Sat by Pulse Oximetry (%) 94 L 06/30/18 21:00 Labs: CBC, BMP 07/01/18 06:20 07/01/18 06:20 Hospitalist Encounter Assessment: Called by nursing and informed that pt had . Pt was DNR/DNI. Arrived and examined the pt. Exam: General: Pt unresponsive to verbal or painful stimuli HEENT: No corneal reflexes, Pupils fixed and dilated Heart: No heart sounds, no carotid pulses Lungs: No lung sounds Ext: no peripheral pulses Time of pronounced at 12:18 Family called and notified at 12:24 Visit type - Emergency Visit Emergency Visit: Yes ED Registration Date: 06/28/18 Care time: The patient presented to the Emergency Department on the above date and was hospitalized for further evaluation of their emergent condition. - New Patient This patient is new to me today: Yes Date on this admission: 07/01/18 - Critical Care Critical Care patient: No
[2018-07-01 13:00] LABS: ANISOCYTOSIS 1+; MACROCYTOSIS 0; PLATELET ESTIMATE INCREASED
--- NOTE | 2018-07-01 13:19 | DS ---
Physical Exam: SUBJECTIVE: Notified by nursing that patient had . Patient seen and examined. Unresponsive to verbal or painful stimuli. OBJECTIVE: Vital Signs Period Temp Pulse Resp BP Sys/Conde Pulse Ox Last 24 Hr 97.9 F-98.7 F 52-78 18-20 111-141/41-59 94 PHYSICAL EXAM General: Pt unresponsive to verbal or painful stimuli HEENT: No corneal reflexes, Pupils fixed and dilated Heart: No heart sounds, no carotid pulses Lungs: No lung sounds Ext: no peripheral pulses LABS Laboratory Results - last 24 hr 07/01/18 07/01/18 07/01/18 06:20 06:20 10:40 WBC 6.9 RBC 3.56 L Hgb 9.9 L Hct 31.1 L MCV 87.3 MCH 28.0 MCHC 32.0 RDW 16.3 H Plt Count 608 H MPV 7.8 Absolute Neuts (auto) 5.3 Neutrophils % 77.8 Lymphocytes % 9.5 Monocytes % 11.5 H Eosinophils % 0.9 Basophils % 0.3 Nucleated RBC % 0 Sodium 137 Potassium 5.5 H Plasma Potassium 5.2 H Chloride 100 Carbon Dioxide 30 Anion Gap 7 L BUN 29 H Creatinine 0.6 Creat Clearance w eGFR > 60 Random Glucose 116 H Calcium 9.1 Phosphorus 3.7 IMAGING: CXR/Ribs Radiograph 06/27: mild focal deformity of left 6th rib laterally (acute vs. chronic) L Shoulder Radiograph 06/27: nondisplaced proximal left humeral fracture Head CT 06/27: No acute intracranial pathology or hemorrhage Cervical Spine Radiograph: 06/29: Degenerative changes of C1-C6, no acute fracture noted CXR 07/01: worsening b/l effusions compared with 06/27 HOSPITAL COURSE: Pt was admitted following a mechanical fall. Found to have a nondisplaced fracture of her left proximal humerus. Seen by ortho who did not recommend surgical repair at this time and recommended shoulder sling with ice packs for pain and swelling. Pt was also found to have a UTI with c/s growing peña sensitive E. coli. Pt has been treated with 4 days of IV Rocephin. Pt has established history of transfusion dependent anemia found to be acutely anemic during this admission with H/H as low as 7.6/22.8. She received one unit of PRBCs and H/H is now stable at 9.9/31.1. This morning pt noted to be more tachypnic. CXR noted with larger b/l effusions. Lasix ordered with plan for chest CT. Called and notified by nursing that pt had . Pt was DNR/ DNI. Time of called at 12:18. Family notified at 12:24. Date of Admission:06/28/18 Date of Discharge: 07/01/18 Minutes to complete discharge: 50 Discharge Summary Reason For Visit: FAILURE TO THRIVE IN ADULT Current Active Problems Failure to thrive in adult (Acute) - Home Medications Comprehensive Discharge Medication List: Ambulatory Orders Amino Acids/Protein Hydrolys [Pro-Stat Sugar Free Liquid Pkt] 30 ml PO DAILY Amlodipine Besylate 10 mg PO DAILY 06/18/18 Cyanocobalamin (Vitamin B-12) [B-12] 500 mcg PO DAILY 06/18/18 Docusate Sodium [Colace -] 100 mg PO ONCE 06/18/18 Hydroxyurea 500 mg PO DAILY 06/18/18 Ranitidine [Zantac -] 150 mg PO BID 06/18/18 Saccharomyces Boulardii [Probiotic] 250 mg PO BID 06/18/18 Sennosides [Senna Lax] 8.6 mg PO PRN PRN 06/18/18 Sotalol HCl [Betapace] 120 mg PO BID 06/18/18 Klonopin - 0.25 mg PO DAILY 06/28/18 Acetaminophen [Tylenol .Regular Strength -] 650 mg PO Q6H PRN tablet 07/01/18 Apixaban [Eliquis -] 2.5 mg PO BID 30 Days #0 tablet 07/01/18 Lidocaine 5% Patch [Lidoderm -] 1 patch TP DAILY patch 07/01/18 Lidocaine Patch Removal [Lidoderm Patch Removal] 1 each MC DAILY@2200 each Polyethylene Glycol 3350 [Miralax 255 gm Btl -] 17 gm PO BID btl 07/01/18 Zinc Sulfate [Orazinc -] 220 mg PO DAILY capsule 07/01/18 Condition: - Instructions Referrals: Lesli Barrios [Primary Care Provider] - 1 Week Raisa Rodriguez MD [Staff Physician] - 2 Weeks Robert Loaiza MD [Staff Physician] - 2 Weeks Hair Resendiz MD [Staff Physician] - 2 Weeks Disposition: This patient is new to me today: Yes Date on this admission: 07/01/18 Emergency Visit: Yes ED Registration Date: 06/28/18 Care time: The patient presented to the Emergency Department on the above date and was hospitalized for further evaluation of their emergent condition. Critical Care patient: No - Discharge Referral Referred to [facility] No
[2018-07-01 13:20] VITALS: BP 145/54; PULSE 52; TEMP 97.4
== END 2018-07-01 12:18 | disposition expired | DRG 562 ==
LOC: JER 19:50 → JERBED 06-28 00:03 → UNDOADMIN 06-28 00:21 → J8W 06-28 02:44
PROVIDERS: ADMIT Internal Medicine; ATTEND Hospitalist
PROC: 30233N1 Transfusion of Nonautologous Red Blood Cells into Peripheral Vein, Percutaneous Approach (ICD-10-PCS; principal; 2018-06-29)
DX: S42.295A Other nondisplaced fracture of upper end of left humerus, initial encounter for closed fracture (principal); I50.33 Acute on chronic diastolic (congestive) heart failure; S22.088A Other fracture of T11-T12 vertebra, initial encounter for closed fracture; E87.1 Hypo-osmolality and hyponatremia; R64 Cachexia; C88.4 Extranodal marginal zone B-cell lymphoma of mucosa-associated lymphoid tissue [MALT-lymphoma]; D75.81 Myelofibrosis; N39.0 Urinary tract infection, site not specified; J98.11 Atelectasis; E06.3 Autoimmune thyroiditis; R62.7 Adult failure to thrive; K21.9 Gastro-esophageal reflux disease without esophagitis; D64.9 Anemia, unspecified; E86.1 Hypovolemia; I11.0 Hypertensive heart disease with heart failure; E87.5 Hyperkalemia; Z68.22 Body mass index [BMI] 22.0-22.9, adult; E86.0 Dehydration; G47.00 Insomnia, unspecified; I34.1 Nonrheumatic mitral (valve) prolapse; I48.0 Paroxysmal atrial fibrillation; I48.91 Unspecified atrial fibrillation; B96.20 Unspecified Escherichia coli [E. coli] as the cause of diseases classified elsewhere; E83.42 Hypomagnesemia; E83.39 Other disorders of phosphorus metabolism; D69.6 Thrombocytopenia, unspecified; N31.9 Neuromuscular dysfunction of bladder, unspecified; F41.9 Anxiety disorder, unspecified; J30.9 Allergic rhinitis, unspecified; J32.9 Chronic sinusitis, unspecified; Z66 Do not resuscitate; W18.39XA Other fall on same level, initial encounter; Y92.89 Other specified places as the place of occurrence of the external cause; Y93.89 Activity, other specified; Y99.8 Other external cause status
CPT/HCPCS: 36415; 36430; 70450-TC; 71045-TC-FY; 71111-TC-FY; 72050-TC-FY; 73030-TC-LT-FY; 80048; 80053; 81003; 81015; 82550; 83735; 84100; 84132; 84443; 84484; 85025; 85027; 86850; 86900; 86901; 86922; 87086; 87186; 93005; 93010; 97116-GP; 97162-GP; 99282-25; J0131; J7030; J8999; P9038; P9058